=== PATIENT | female | born 1945 | race Hispanic/Latino ===

== ENCOUNTER 2023-08-19 20:55 | Inpatient (IN) | payer OTHER, SELFPAY ==
--- OUTSIDE RECORDS SUMMARY | 2023-08-19 21:07 | XMS REPORT | Continuity of Care Document ---
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 MG 17:13: 3D (three) Medical tablet 05 times Center daily. CALCIUM 2021-0 Yes 2{tbl} QD Take [address] CARBONATE/V 9-30 tablets by [facility] ITAMIN D3 17:13: mouth Medical (CALTRATE 05 daily. Center 600 + D ORAL) multivitami Yes 1{capsu QD Take [address] n capsule 9-30 le} capsule by [facility] 17:13: mouth Medical 05 daily. [facility] carvediloL Yes 12.5mg Take 12.[address] (COREG) 9-30 mg by [facility] 12.5 MG 17:13: mouth 2 Medical tablet 05 (two) Center times daily with breakfast and dinner. atorvastati Yes 20mg QD Take [address] [facility] (LIPITOR) 9-30 by mouth [facility] 20 MG 17:13: daily. Medical tablet 05 [facility] aspirin 81 Yes 81mg QD Take [address] [facility] EC 9-30 [facility] tablet 17:13: daily. Medical 05 [facility] NIFEdipine Yes 60mg QD Take [address] [facility] (PROCARDIA- 9-30 by mouth [facility] XL) 60 MG 17:13: nightly. [facility]i mis[facility] (OSM) 24 hr 05 Center tablet hydrALAZINE Yes 25mg Q.[id number] Take [address] [facility] (APRESOLINE 9-30 [id number] by mouth 3 [facility] ) 25 MG 17:13: 3D (three) Medical tablet 05 times Center daily. CALCIUM Yes 2{tbl} QD Take [address] [facility] CARBONATE/V 9-30 tablets by Rosa magana ITAMIN D3 17:13: mouth Medical (CALTRATE 05 daily. [facility] 600 + D ORAL) multivitami Yes 1{capsu QD Take [address] [facility] capsule 9-30 le} capsule by [facility] 17:13: mouth Medical 05 daily. [facility] carvediloL Yes 12.5mg Take 12.[address] [facility] (COREG) 9-30 mg by [facility] 12.5 MG 17:13: mouth 2 Medical tablet 05 (two) Center times daily with breakfast and dinner. atorvastati Yes 20mg QD Take [address] [facility] (LIPITOR) 9-30 by mouth [facility] 20 MG 17:13: daily. Medical tablet 05 [facility] aspirin 81 Yes 81mg QD Take [address] MG EC 9-30 by mouth [facility] tablet 17:13: daily. Medical 05 [facility] NIFEdipine Yes 60mg QD Take [address] (PROCARDIA- 9-30 by mouth [facility] XL) 60 MG 17:13: nightly. Medi misa (OSM) 24 hr 05 Center tablet hydrALAZINE 0 Yes 25mg Q.[id number] Take [address] [facility] (APRESOLINE 9-30 [id number] by mouth 3 [facility] ) 25 MG 17:13: 3D (three) Medical tablet 05 times Center daily. CALCIUM Yes 2{tbl} QD Take [address] [facility] CARBONATE/V 9-30 tablets by Rosa kes ITAMIN D3 17:13: mouth Medical (CALTRATE 05 daily. Center 600 + D ORAL) multivitami Yes 1{capsu QD Take [address] [facility] capsule 9-30 le} capsule by [facility] 17:13: mouth Medical 05 daily. [facility] carvediloL Yes 12.5mg Take 12.[address] [facility] (COREG) 9-30 mg by [facility] 12.5 MG 17:13: mouth 2 Medical tablet 05 (two) Center times daily with breakfast and dinner. atorvastati Yes 20mg QD Take [address] [facility] (LIPITOR) 9-30 by mouth [facility] 20 MG 17:13: daily. Medical tablet [address] [place] [address] aspirin 81 Yes 81mg QD Take [address] MG EC 9-30 by mouth [facility] tablet 17:13: daily. [address] NIFEdipine Yes 60mg QD Take [address] (PROCARDIA- 9-30 by mouth [facility] XL) 60 MG 17:13: nightly. Medi misa (OSM) 24 hr 05 Center tablet hydrALAZINE Yes 25mg Q.[id number] Take [address] [facility] (APRESOLINE 9-30 [id number] by mouth 3 [facility] ) 25 MG 17:13: 3D (three) Medical tablet 05 times Center daily. CALCIUM Yes 2{tbl} QD Take [address] [facility] CARBONATE/V 9-30 tablets by Rosa kes ITAMIN D3 17:13: mouth Medical (CALTRATE 05 daily. Center 600 + D ORAL) multivitami 0 Yes 1{capsu QD Take [address] [facility] capsule 9-30 le} capsule by [facility] 17:13: mouth Medical 05 daily. [facility] carvediloL Yes 12.5mg Take 12.[address] [facility] (COREG) 9-30 mg by [facility] 12.5 MG 17:13: mouth 2 Medical tablet 05 (two) Center times daily with breakfast and dinner. atorvastati Yes 20mg QD Take [address] [facility] (LIPITOR) 9-30 by mouth [facility] 20 MG 17:13: daily. Medical tablet 05 [facility] aspirin 81 0 Yes 81mg QD Take [address] MG EC 9-30 by mouth [facility] tablet 17:13: daily. Medical [address] [place] [address] NIFEdipine Yes 60mg QD Take [address] (PROCARDIA- 9-30 by mouth [facility] XL) 60 MG 17:13: nightly. Medi misa (OSM) 24 hr 05 [facility] tablet hydrALAZINE Yes 25mg Q.[id number] Take [address] [facility] (APRESOLINE 9-30 [id number] by mouth 3 [facility] ) 25 MG 17:13: 3D (three) Medical tablet 05 times Center daily. CALCIUM Yes 2{tbl} QD Take [address] [facility] CARBONATE/V 9-30 tablets by Rosa magana ITAMIN D3 17:13: mouth Medical (CALTRATE 05 daily. [facility] 600 + D ORAL) multivitami Yes 1{capsu QD Take [address] [facility] capsule 9-30 le} capsule by [facility] 17:13: mouth Medical 05 daily. [facility] carvediloL Yes 12.5mg Take 12.[address] [facility] (COREG) 9-30 mg by [facility] 12.5 MG 17:13: mouth 2 Medical tablet 05 (two) Center times daily with breakfast and dinner. atorvastati Yes 20mg QD Take [address] [facility] (LIPITOR) 9-30 by mouth [facility] 20 MG 17:13: daily. Medical tablet 05 [facility] aspirin 81 0 Yes 81mg QD Take [address] MG EC 9-30 by mouth [facility] tablet 17:13: daily. Medical [address] [place] [address] NIFEdipine 0 Yes 60mg QD Take [address] (PROCARDIA- 9-30 by mouth [facility] XL) 60 MG 17:13: nightly. Medi misa (OSM) 24 hr 05 Center tablet cetirizine 2021-2- No 10mg QD Take [address] [facility] (ZyrTEC) 10 9-18 07-30 by mouth Rayna es MG tablet 09:57: 00:00 daily. Medic al 31 :00 Center cetirizine 2- No 10mg QD Take [address] [facility] (ZyrTEC) 10 9-18 07-30 by mouth Rayna es MG tablet 09:57: 00:00 daily. Medic al 31 :00 Center cetirizine 2021-2021- No 10mg QD Take [address] [facility] (ZyrTEC) 10 -18 07-30 by mouth [facility]na es MG tablet 09:57: 00:00 daily. Medic al 31 :00 [facility] cetirizine 2021- No 10mg QD Take [address] [facility] (ZyrTEC) 10 -18 07-30 by mouth Rayna es MG tablet 09:57: 00:00 daily. Medic al 31 :00 Center cetirizine 2021- No 10mg QD Take [address] [facility] (ZyrTEC) 10 9-18 07-30 by mouth [facility] es MG tablet 09:57: 00:00 daily. Medic al 31 :00 Center cetirizine 2- No 10mg QD Take [address] [facility] (ZyrTEC) 10 9-18 07-30 by mouth [facility] es MG tablet 09:57: 00:00 daily. Medic al 31 :00 Center cetirizine 2021-2021- No 10mg QD Take [address] [facility] (ZyrTEC) 10 9-18 07-30 by mouth [facility] es MG tablet 09:57: 00:00 daily. Medic al 31 :00 Center cetirizine 2021-2- No 10mg QD Take [address] [facility] (ZyrTEC) 10 9-30 -30 by mouth [facility] es MG tablet 09:57: 00:00 daily. Medic al 31 :00 Center cetirizine 2- No 10mg QD Take [address] [facility] (ZyrTEC) 10 9-18 07-30 by mouth [facility] es MG tablet 09:57: 00:00 daily. Medic al 31 :00 [facility] cetirizine 2- No 10mg QD Take [address] [facility] (ZyrTEC) 10 9-18 07-30 by mouth [facility] es MG tablet 09:57: 00:00 daily. Medic al 31 :00 [facility] cetirizine 2- No 10mg QD Take [address] [facility] (ZyrTEC) 10 -18 07-30 by mouth [facility] es MG tablet 09:57: 00:00 daily. Medic al 31 :00 [facility] cetirizine 2021- No 10mg QD Take [address] [facility] (ZyrTEC) 10 9-18 07-30 by mouth [facility] es MG tablet 09:57: 00:00 daily. Medic al 31 :00 [facility] cetirizine 2021- No 10mg QD Take [address] [facility] (ZyrTEC) 10 -18 07-30 by mouth [facility] es MG tablet 09:57: 00:00 daily. Medic al 31 :00 [facility] cetirizine 2021- No 10mg QD Take [address] [facility] (ZyrTEC) 10 9-18 07-30 by mouth [facility] MG tablet 09:57: 00:00 daily. Medic al 31 :00 [facility] cetirizine 2021- No 10mg QD Take [address] [facility] (ZyrTEC) 10 9-18 07-30 by mouth [facility] MG tablet 09:57: 00:00 daily. Medic al 31 :00 [facility] cetirizine 2021-0 2- No 10mg QD Take [address] [facility] (ZyrTEC) 10 9-30 -30 by mouth [facility] es MG tablet 09:57: 00:00 daily. Medic al 31 :00 [facility] cetirizine 2021-0 2- No 10mg QD Take [address] [facility] (ZyrTEC) 10 9-30 -30 by mouth [facility] es MG tablet 09:57: 00:00 daily. Medic al 31 :00 [facility] losartan 2022- No 100mg QD Take [address] [facility] (COZAAR) 9-30 09-30 mg by [facility] 100 MG 09:57: 00:00 mouth Medical tablet 19 :00 daily. [facility] losartan 2021- No 100mg QD Take [address] [facility] (COZAAR) 9-30 09-30 mg by [facility] 100 MG 09:57: 00:00 mouth Medical tablet 19 :00 daily. [facility] losartan 2021-2021- No 100mg QD Take [address] [facility] (COZAAR) 9-30 09-30 mg by [facility] 100 MG 09:57: 00:00 mouth Medical tablet 19 :00 daily. [facility] losartan 2021- No 100mg QD Take [address] [facility] (COZAAR) 9-30 09-30 mg by [facility] 100 MG 09:57: 00:00 mouth Medical tablet 19 :00 daily. [facility] losartan 2021-2021- No 100mg QD Take [address] [facility] (COZAAR) 9-30 09-30 mg by [facility] 100 MG 09:57: 00:00 mouth Medical tablet 19 :00 daily. [facility] losartan 2021- No 100mg QD Take [address] [facility] (COZAAR) 9-30 09-30 mg by [facility] 100 MG 09:57: 00:00 mouth Medical tablet 19 :00 daily. [facility] losartan 2021- No 100mg QD Take [address] [facility] (COZAAR) 9-30 09-30 mg by [facility] 100 MG 09:57: 00:00 mouth Medical tablet 19 :00 daily. [facility] losartan 2021- No 100mg QD Take [address] [facility] (COZAAR) 9-30 09-30 mg by [facility] 100 MG 09:57: 00:00 mouth Medical tablet 19 :00 daily. [facility] losartan 2021- No 100mg QD Take [address] [facility] (COZAAR) 9-30 09-30 mg by [facility] 100 MG 09:57: 00:00 mouth Medical tablet 19 :00 daily. [facility] losartan 2021-2021- No 100mg QD Take [address] [facility] (COZAAR) 9-30 09-30 mg by [facility] 100 MG 09:57: 00:00 mouth Medical tablet 19 :00 daily. [facility] losartan 2021- No 100mg QD Take [address] [facility] (COZAAR) 9-30 09-30 mg by [facility] 100 MG 09:57: 00:00 mouth Medical tablet 19 :00 daily. [facility] losartan 2021- No 100mg QD Take [address] [facility] (COZAAR) 9-30 09-30 mg by [facility] 100 MG 09:57: 00:00 mouth Medical tablet 19 :00 daily. [facility] losartan 2021- No 100mg QD Take [address] [facility] (COZAAR) 9-30 09-30 mg by [facility] 100 MG 09:57: 00:00 mouth Medical tablet 19 :00 daily. [facility] losartan 2021-2021- No 100mg QD Take [address] [facility] (COZAAR) 9-30 09-30 mg by [facility] 100 MG 09:57: 00:00 mouth Medical tablet 19 :00 daily. [facility] losartan 2021- No 100mg QD Take [address] [facility] (COZAAR) 9-30 09-30 mg by [facility] 100 MG 09:57: 00:00 mouth Medical tablet 19 :00 daily. [facility] losartan 2021- No 100mg QD Take [address] [facility] (COZAAR) 9-30 09-30 mg by [facility] 100 MG 09:57: 00:00 mouth Medical tablet 19 :00 daily. [facility] losartan 2021- No 100mg QD Take [address] [facility] (COZAAR) 9-30 09-30 mg by [facility] 100 MG 09:57: 00:00 mouth Medical tablet 19 :00 daily. [facility] losartan 2021- No 50mg QD Take [address] [facility] [address] [facility] (COZAAR) 50 9-30 09-30 by mouth [facility] MG tablet 09:56: 00:00 daily. Medic al 27 :00 [facility] losartan 2021- No 50mg QD Take [address] [facility] [address] [facility] (COZAAR) 50 9-30 09-30 by mouth [facility] MG tablet 09:56: 00:00 daily. Medic al 27 :00 [facility] losartan 2021- No 50mg QD Take [address] [facility] [address] [facility] (COZAAR) 50 9-30 09-30 by mouth [facility] MG tablet 09:56: 00:00 daily. Medic al 27 :00 [facility] losartan 2021- No 50mg QD Take [address] [facility] [address] [facility] (COZAAR) 50 9-30 09-30 by mouth [facility] MG tablet 09:56: 00:00 daily. Medic al 27 :00 [facility] losartan 2022-0 2022- No 50mg QD Take [address] [facility] [address] [facility] (COZAAR) 50 9-30 09-30 by mouth [facility] MG tablet 09:56: 00:00 daily. Medic al 27 :00 [facility] losartan 2021-0 2022- No 50mg QD Take [address] [facility] [address] [facility] (COZAAR) 50 9-30 -30 by mouth [facility] es MG tablet 09:56: 00:00 daily. Medic al 27 :00 [facility] losartan 2021-0 2- No 50mg QD Take [address] [facility] [address] [facility] (COZAAR) 50 9-30 -30 by mouth [facility] MG tablet 09:56: 00:00 daily. Medic al 27 :00 [facility] losartan 2021-0 2021- No 50mg QD Take [address] [facility] [address] [facility] (COZAAR) 50 9-18 07-30 by mouth [facility] MG tablet 09:56: 00:00 daily. Medic al 27 :00 [facility] losartan 2021-0 2- No 50mg QD Take [address] [facility] [address] [facility] (COZAAR) 50 9-18 07-30 by mouth [facility] MG tablet 09:56: 00:00 daily. Medic al 27 :00 [facility] losartan 2021-0 2- No 50mg QD Take [address] [facility] [address] [facility] (COZAAR) 50 9-30 -30 by mouth [facility] MG tablet 09:56: 00:00 daily. Medic al 27 :00 [facility] losartan 2021-0 2- No 50mg QD Take [address] [facility] [address] [facility] (COZAAR) 50 9-30 -30 by mouth [facility] MG tablet 09:56: 00:00 daily. Medic al 27 :00 [facility] losartan 2021-0 2022- No 50mg QD Take [address] [facility] [address] [facility] (COZAAR) 50 9-30 09-30 by mouth [facility] es MG tablet 09:56: 00:00 daily. Medic al 27 :00 [facility] losartan 2021-0 2022- No 50mg QD Take [address] [facility] [address] [facility] (COZAAR) 50 9-30 09-30 by mouth [facility] es MG tablet 09:56: 00:00 daily. Medic al 27 :00 [facility] losartan 2021-0 2022- No 50mg QD Take [address] [facility] [address] [facility] (COZAAR) 50 9-30 -30 by mouth [facility] es MG tablet 09:56: 00:00 daily. Medic al 27 :00 [facility] losartan 2022-0 2022- No 50mg QD Take [address] [facility] (COZAAR) 50 07-18-30 by mouth [facility] es MG tablet 09:56: 00:00 daily. Medic al 27 :00 [facility] losartan 2022-0 2022- No 50mg QD Take [address] [facility] [address] [facility] (COZAAR) 50 07-18-30 by mouth [facility] es MG tablet 09:56: 00:00 daily. Medic al 27 :00 [facility] losartan 2-0 2022- No 50mg QD Take [address] [facility] [address] [facility] (COZAAR) 50 -18 07-30 by mouth [facility] es MG tablet 09:56: 00:00 daily. Medic al 27 :00 [facility] amLODIPine 2022-0 2022- No 10mg QD Take [address] [facility] (NORVASC) 07-18-30 [facility] 10 MG 09:55: 00:00 daily. Medical tablet 43 :00 [facility] amLODIPine 2022-0 2022- No 10mg QD Take [address] [facility] (NORVASC) 07-18-30 by mouth [facility] 10 MG 09:55: 00:00 daily. Medical tablet 43 :00 [facility] amLODIPine 2022-0 2022- No 10mg QD Take [address] [facility] (NORVASC) 07-18-30 by mouth [facility] 10 MG 09:55: 00:00 daily. Medical tablet 43 :00 [facility] amLODIPine 2022-0 2022- No 10mg QD Take [address] [facility] (NORVASC) 07-18- by mouth [facility] 10 MG 09:55: 00:00 daily. Medical tablet 43 :00 [facility] amLODIPine 2022-0 2022- No 10mg QD Take [address] [facility] (NORVASC) 07-18-30 by mouth [facility] 10 MG 09:55: 00:00 daily. Medical tablet 43 :00 [facility] amLODIPine 2022-0 2022- No 10mg QD Take [address] [facility] (NORVASC) 07-18-30 by mouth [facility] 10 MG 09:55: 00:00 daily. Medical tablet 43 :00 [facility] amLODIPine 2022-0 2022- No 10mg QD Take [address] [facility] (NORVASC) 07-18-30 by mouth [facility] 10 MG 09:55: 00:00 daily. Medical tablet 43 :00 [facility] amLODIPine 2022-0 2022- No 10mg QD Take [address] [facility] (NORVASC) 07-18-30 by mouth [facility] 10 MG 09:55: 00:00 daily. Medical tablet 43 :00 [facility] amLODIPine 2022-0 2022- No 10mg QD Take [address] [facility] (NORVASC) 07-18-30 by mouth [facility] 10 MG 09:55: 00:00 daily. Medical tablet 43 :00 [facility] amLODIPine 2022-0 2022- No 10mg QD Take [address] [facility] (NORVASC) 07-18- by mouth [facility] 10 MG 09:55: 00:00 daily. Medical tablet 43 :00 [facility] amLODIPine 2022-0 2022- No 10mg QD Take [address] [facility] (NORVASC) 07-18- by mouth [facility] 10 MG 09:55: 00:00 daily. Medical tablet 43 :00 [facility] amLODIPine 2022-0 2022- No 10mg QD Take [address] [facility] (NORVASC) 07-18- by mouth [facility] 10 MG 09:55: 00:00 daily. Medical tablet 43 :00 [facility] amLODIPine 2022-0 2022- No 10mg QD Take [address] [facility] (NORVASC) 07-18- by mouth [facility] 10 MG 09:55: 00:00 daily. Medical tablet 43 :00 [facility] amLODIPine 2022-0 2022- No 10mg QD Take [address] [facility] (NORVASC) 07-18- by mouth [facility] 10 MG 09:55: 00:00 daily. Medical tablet 43 :00 [facility] amLODIPine 2022-0 2022- No 10mg QD Take [address] [facility] (NORVASC) 07-18-30 by mouth [facility] 10 MG 09:55: 00:00 daily. Medical tablet 43 :00 [facility] amLODIPine 2022-0 2022- No 10mg QD Take [address] [facility] (NORVASC) -18 07-30 by mouth [facility] 10 MG 09:55: 00:00 daily. Medical tablet 43 :00 [facility] amLODIPine 2022-0 2022- No 10mg QD Take [address] [facility] (NORVASC) 9-30 09-30 by mouth [facility] 10 MG 09:55: 00:00 daily. Medical tablet 43 :00 Center lidocaine 2021- No 1{patch Place 1-[address] [facility] (LIDODERM) 9 10-14 } patches [facility] 4 % patch 00:00: 23:59 onto the Med ical 00 :00 skin daily Center as needed (pain) for up to [address] directly over any incisions. lidocaine 2021- No 1{patch Place 1-[address] [facility] (LIDODERM) 07-18 10-14 } patches [facility] 4 % patch 00:00: 23:59 onto the Med ical 00 :00 skin daily Center as needed (pain) for up to [address] directly over any incisions. lidocaine 2021- No 1{patch Place 1-[address] [facility] (LIDODERM) 07-18 10-14 } patches [facility] 4 % patch 00:00: 23:59 onto the Med ical 00 :00 skin daily Center as needed (pain) for up to [address] directly over any incisions. lidocaine 2021- No 1{patch Place 1-[address] [facility] (LIDODERM) 07-18 10-14 } patches [facility] 4 % patch 00:00: 23:59 onto the Med ical 00 :00 skin daily Center as needed (pain) for up to [address] directly over any incisions. lidocaine 2021- No 1{patch Place 1-[address] [facility] (LIDODERM) 07-18 10-14 } patches [facility] 4 % patch 00:00: 23:59 onto the Med ical 00 :00 skin daily Center as needed (pain) for up to [address] directly over any incisions. lidocaine 2021- No 1{patch Place 1-[address] [facility] (LIDODERM) 9- 10-14 } patches [facility] 4 % patch 00:00: 23:59 onto the Med ical 00 :00 skin daily Center as needed (pain) for up to [address] directly over any incisions. lidocaine 2021- No 1{patch Place 1-[address] [facility] (LIDODERM) 07-18 10-14 } patches [facility] 4 % patch 00:00: 23:59 onto the Med ical 00 :00 skin daily Center as needed (pain) for up to [address] directly over any incisions. lidocaine 2021- No 1{patch Place 1-[address] [facility] (LIDODERM) 9-30 10-14 } patches [facility] 4 % patch 00:00: 23:59 onto the Med ical 00 :00 skin daily Center as needed (pain) for up to [address] directly over any incisions. lidocaine 2021- No 1{patch Place 1-[address] [facility] (LIDODERM) 9-30 10-14 } patches [facility] 4 % patch 00:00: 23:59 onto the Med ical 00 :00 skin daily Center as needed (pain) for up to [address] directly over any incisions. lidocaine 2021- No 1{patch Place 1-[address] [facility] (LIDODERM) 9-30 10-14 } patches [facility] 4 % patch 00:00: 23:59 onto the Med ical 00 :00 skin daily Center as needed (pain) for up to [address] directly over any incisions. lidocaine 2021- No 1{patch Place 1-[address] [facility] (LIDODERM) 9-30 10-14 } patches [facility] 4 % patch 00:00: 23:59 onto the Med ical 00 :00 skin daily Center as needed (pain) for up to [address] directly over any incisions. lidocaine 2021- No 1{patch Place 1-[address] [facility] (LIDODERM) 9-30 10-14 } patches [facility] 4 % patch 00:00: 23:59 onto the Med ical 00 :00 skin daily Center as needed (pain) for up to [address] directly over any incisions. lidocaine 2021- No 1{patch Place 1-[address] [facility] (LIDODERM) 9-30 10-14 } patches [facility] 4 % patch 00:00: 23:59 onto the Med ical 00 :00 skin daily Center as needed (pain) for up to [address] directly over any incisions. lidocaine 2021- No 1{patch Place 1-[address] [facility] (LIDODERM) 9-30 10-14 } patches [facility] 4 % patch 00:00: 23:59 onto the Med ical 00 :00 skin daily Center as needed (pain) for up to [address] directly over any incisions. lidocaine 2021- No 1{patch Place 1-[address] [facility] (LIDODERM) 9-30 10-14 } patches [facility] 4 % patch 00:00: 23:59 onto the Med ical 00 :00 skin daily Center as needed (pain) for up to [address] directly over any incisions. lidocaine 2021- No 1{patch Place 1-[address] [facility] (LIDODERM) 9-30 10-14 } patches [facility] 4 % patch 00:00: 23:59 onto the Med ical 00 :00 skin daily Center as needed (pain) for up to [address] directly over any incisions. lidocaine 2021-2021- No 1{patch Place 1-[address] [facility] (LIDODERM) 9-30 10-14 } patches [facility] 4 % patch 00:00: 23:59 onto the Med ical 00 :00 skin daily Center as needed (pain) for up to [address] directly over any incisions. acetaminoph 2021- No 650mg Take [address] [facility] [address] [facility] en 9-30 10-10 tablets [facility] (TYLENOL) 00:00: 23:59 (650 mg Medi misa 325 MG 00 :00 total) by Center tablet mouth every 6 (six) hours as needed for Pain for up to 10 days. acetaminoph 2021- No 650mg Take [address] [facility] [address] [facility] en 9-30 10-10 tablets [facility] (TYLENOL) 00:00: 23:59 (650 mg Medi misa 325 MG 00 :00 total) by Center tablet mouth every 6 (six) hours as needed for Pain for up to 10 days. acetaminoph 2021- No 650mg Take [address] [facility] [address] [facility] en 9-30 10-10 tablets [facility] (TYLENOL) 00:00: 23:59 (650 mg Medi misa 325 MG 00 :00 total) by Center tablet mouth every 6 (six) hours as needed for Pain for up to 10 days. acetaminoph 2021- No 650mg Take [address] [facility] [address] [facility] en 9-30 10-10 tablets [facility] (TYLENOL) 00:00: 23:59 (650 mg Medi misa 325 MG 00 :00 total) by Center tablet mouth every 6 (six) hours as needed for Pain for up to 10 days. acetaminoph 0 2021- No 650mg Take [address] [facility] [address] [facility] en 9-30 10-10 [facility] (TYLENOL) 00:00: 23:59 (650 mg Medi misa 325 MG 00 :00 total) by Center tablet mouth every 6 (six) hours as needed for Pain for up to 10 days. acetaminoph 0 2021- No 650mg Take [address] [facility] [address] [facility] en 9-30 10-10 tablets [facility] (TYLENOL) 00:00: 23:59 (650 mg Medi misa 325 MG 00 :00 total) by Center tablet mouth every 6 (six) hours as needed for Pain for up to 10 days. acetaminoph 2021-0 2021- No 650mg Take [address] [facility] [address] [facility] en 9-30 10-10 tablets [facility] (TYLENOL) 00:00: 23:59 (650 mg Medi misa 325 MG 00 :00 total) by Center tablet mouth every 6 (six) hours as needed for Pain for up to 10 days. acetaminoph 0 2021- No 650mg Take [address] [facility] [address] [facility] en 9-30 10-10 tablets [facility] (TYLENOL) 00:00: 23:59 (650 mg Medi misa 325 MG 00 :00 total) by Center tablet mouth every 6 (six) hours as needed for Pain for up to 10 days. acetaminoph 0 2021- No 650mg Take [address] [facility] [address] [facility] en 9-30 10-10 tablets [facility] (TYLENOL) 00:00: 23:59 (650 mg Medi misa 325 MG 00 :00 total) by Center tablet mouth every 6 (six) hours as needed for Pain for up to 10 days. acetaminoph 0 2021- No 650mg Take [address] [facility] [address] [facility] en 9-30 10-10 tablets [facility] (TYLENOL) 00:00: 23:59 (650 mg Medi misa 325 MG 00 :00 total) by Center tablet mouth every 6 (six) hours as needed for Pain for up to 10 days. acetaminoph 0 2021- No 650mg Take [address] [facility] [address] [facility] en 9-30 10-10 tablets [facility] (TYLENOL) 00:00: 23:59 (650 mg Medi misa 325 MG 00 :00 total) by Center tablet mouth every 6 (six) hours as needed for Pain for up to 10 days. acetaminoph 2021-0 2- No 650mg Take [address] [facility] [address] [facility] en 9-30 10-10 tablets [facility] (TYLENOL) 00:00: 23:59 (650 mg Medi misa 325 MG 00 :00 total) by Center tablet mouth every 6 (six) hours as needed for Pain for up to 10 days. acetaminoph 2021-0 2- No 650mg Take [address] [facility] [address] [facility] en 9-30 10-10 [facility] (TYLENOL) 00:00: 23:59 (650 mg Medi misa 325 MG 00 :00 total) by Center tablet mouth every 6 (six) hours as needed for Pain for up to 10 days. acetaminoph 2021-0 2- No 650mg Take [address] [facility] [address] [facility] en 9-30 10-10 [facility] (TYLENOL) 00:00: 23:59 (650 mg Medi misa 325 MG 00 :00 total) by Center tablet mouth every 6 (six) hours as needed for Pain for up to 10 days. acetaminoph 2021-0 2021- No 650mg Take [address] [facility] [address] [facility] en 9-30 10-10 [facility] (TYLENOL) 00:00: 23:59 (650 mg Medi misa 325 MG 00 :00 total) by Center tablet mouth every 6 (six) hours as needed for Pain for up to 10 days. acetaminoph 2021-0 2021- No 650mg Take [address] [facility] [address] [facility] en 9-30 10-10 tablets [facility] (TYLENOL) 00:00: 23:59 (650 mg Medi misa 325 MG 00 :00 total) by Center tablet mouth every 6 (six) hours as needed for Pain for up to 10 days. acetaminoph 2021-0 2021- No 650mg Take [address] [facility] [address] [facility] en 9-30 10-10 [facility] (TYLENOL) 00:00: 23:59 (650 mg Medi misa 325 MG 00 :00 total) by Center tablet mouth every 6 (six) hours as needed for Pain for up to 10 days. gabapentin 2021-2021- No 100mg Q.[id number] Take [address] [facility] (NEURONTIN) 9-30 10-07 [id number] [facility] 100 MG 00:00: 23:59 3D (100 mg Medical capsule 00 :00 total) by Center mouth 3 (three) times daily for 7 days. polyethylen 2021-0 2021- No 17g Take [address] [facility] e glycol - 10-07 by mouth [facility] (GLYCOLAX) 00:00: 23:59 daily as Me dical 17 gram 00 :00 needed Center packet (constipat ion) for up to 7 days. traMADoL 2021-0 2021- No 50mg Take [address] [facility] (ULTRAM) 50 9-30 10-07 tablet (50 [facility] mg tablet 00:00: 23:59 mg total) Me dical 00 :00 by mouth Center every 6 (six) hours as needed for Pain for up to 7 days. Max Daily Amount: 200 mg gabapentin 2021-2021- No 100mg Q.[id number] Take [address] [facility] (NEURONTIN) -17 08- [id number] [facility] 100 MG 00:00: 23:59 3D (100 mg Medical capsule 00 :00 total) by Center mouth 3 (three) times daily for 7 days. polyethylen 2021-2021- No 17g Take [address] [facility] e glycol - 10- by mouth [facility] (GLYCOLAX) 00:00: 23:59 daily as Me dical 17 gram 00 :00 needed Center packet (constipat ion) for up to 7 days. traMADoL 2021-2021- No 50mg Take [address] [facility] (ULTRAM) 50 9-30 10-07 tablet (50 [facility] mg tablet 00:00: 23:59 mg total) Me dical 00 :00 by mouth Center every 6 (six) hours as needed for Pain for up to 7 days. Max Daily Amount: 200 mg gabapentin 2021-0 2021- No 100mg Q.[id number] Take [address] [facility] (NEURONTIN) - 10- [id number] [facility] 100 MG 00:00: 23:59 3D (100 mg Medical capsule 00 :00 total) by Center mouth 3 (three) times daily for 7 days. polyethylen 2021-0 2021- No 17g Take [address] [facility] e glycol -30 10-07 by mouth [facility] (GLYCOLAX) 00:00: 23:59 daily as Me dical 17 gram 00 :00 needed Center packet (constipat ion) for up to 7 days. traMADoL 2021-2021- No 50mg Take [address] [facility] (ULTRAM) 50 9- 10-07 tablet (50 [facility] mg tablet 00:00: 23:59 mg total) Me dical 00 :00 by mouth Center every 6 (six) hours as needed for Pain for up to 7 days. Max Daily Amount: 200 mg gabapentin 2021-2021- No 100mg [id number] Take [address] [facility] (NEURONTIN) 07-18- [id number] [facility] 100 MG 00:00: 23:59 3D (100 mg Medical capsule 00 :00 total) by Center mouth 3 (three) times daily for 7 days. polyethylen 2021-2021- No 17g Take [address] [facility] glycol -07-25 by [facility] (GLYCOLAX) 00:00: 23:59 daily as Me dical 17 gram 00 :00 needed Center packet (constipat ion) for up to 7 days. traMADoL 2021-2021- No 50mg Take [address] [facility] (ULTRAM) 50 - 10-07 tablet (50 [facility] tablet 00:00: 23:59 mg total) Me dical 00 :00 by mouth Center every 6 (six) hours as needed for Pain for up to 7 days. Max Daily Amount: 200 mg gabapentin 2021-2021- No 100mg [id number] Take [address] [facility] (NEURONTIN) 07-18 [id number] [facility] 100 MG 00:00: 23:59 3D (100 mg Medical capsule 00 :00 total) by Center mouth 3 (three) times daily for 7 days. polyethylen 2021-0 2021- No 17g Take [address] [facility] glycol -07-25 by [facility] (GLYCOLAX) 00:00: 23:59 daily as Me dical 17 gram 00 :00 needed Center packet (constipat ion) for up to 7 days. traMADoL 2021-0 2021- No 50mg Take [address] [facility] (ULTRAM) 50 9-30 10-07 tablet (50 [facility] mg tablet 00:00: 23:59 mg total) Me dical 00 :00 by mouth Center every 6 (six) hours as needed for Pain for up to 7 days. Max Daily Amount: 200 mg gabapentin 2021-0 2021- No 100mg Q.[id number] Take [address] [facility] (NEURONTIN) 07-18 [id number] capsule [facility] 100 MG 00:00: 23:59 3D (100 mg Medical capsule 00 :00 total) by Center mouth 3 (three) times daily for 7 days. polyethylen 2021-0 202- No 17g Take [address] [facility] e glycol 07-18 by mouth [facility] (GLYCOLAX) 00:00: 23:59 daily as Me dical 17 gram 00 :00 needed Center packet (constipat ion) for up to 7 days. traMADoL 2021-0 2021- No 50mg Take [address] [facility] (ULTRAM) 50 07-18- tablet (50 [facility] mg tablet 00:00: 23:59 mg total) Me dical 00 :00 by mouth Center every 6 (six) hours as needed for Pain for up to 7 days. Max Daily Amount: 200 mg gabapentin 2021-0 2021- No 100mg Q.[id number] Take [address] [facility] (NEURONTIN) 07-18 [id number] [facility] 100 MG 00:00: 23:59 3D (100 mg Medical capsule 00 :00 total) by Center mouth 3 (three) times daily for 7 days. polyethylen 2021-0 2021- No 17g Take [address] [facility] e glycol 07-18 by mouth [facility] (GLYCOLAX) 00:00: 23:59 daily as Me dical 17 gram 00 :00 needed Center packet (constipat ion) for up to 7 days. traMADoL 2021-0 2021- No 50mg Take [address] [facility] (ULTRAM) 50 07-18 10- tablet (50 [facility] mg tablet 00:00: 23:59 mg total) Me dical 00 :00 by mouth Center every 6 (six) hours as needed for Pain for up to 7 days. Max Daily Amount: 200 mg gabapentin 2021-0 2021- No 100mg Q.[id number] Take [address] [facility] (NEURONTIN) 07-18 [id number] [facility] 100 MG 00:00: 23:59 3D (100 mg Medical capsule 00 :00 total) by Center mouth 3 (three) times daily for 7 days. polyethylen 2021-2021- No 17g Take [address] [facility] e glycol - 10-07 by mouth [facility] (GLYCOLAX) 00:00: 23:59 daily as Me dical 17 gram 00 :00 needed Center packet (constipat ion) for up to 7 days. traMADoL 2021-2021- No 50mg Take [address] [facility] (ULTRAM) 50 9-30 10-07 tablet (50 [facility] tablet 00:00: 23:59 mg total) Me dical 00 :00 by mouth Center every 6 (six) hours as needed for Pain for up to 7 days. Max Daily Amount: 200 mg gabapentin 2021- No 100mg Q.[id number] Take [address] [facility] (NEURONTIN) -17 08- [id number] [facility] 100 MG 00:00: 23:59 3D (100 mg Medical capsule 00 :00 total) by Center mouth 3 (three) times daily for 7 days. polyethylen 2021-2021- No 17g Take [address] [facility] e glycol - 10- by mouth [facility] (GLYCOLAX) 00:00: 23:59 daily as Me dical 17 gram 00 :00 needed Center packet (constipat ion) for up to 7 days. traMADoL 2021-2021- No 50mg Take [address] [facility] (ULTRAM) 50 9-30 10-07 tablet (50 [facility] tablet 00:00: 23:59 mg total) Me dical 00 :00 by mouth Center every 6 (six) hours as needed for Pain for up to 7 days. Max Daily Amount: 200 mg gabapentin 2021-2021- No 100mg Q.[id number] Take [address] [facility] (NEURONTIN) - 10- [id number] [facility] 100 MG 00:00: 23:59 3D (100 mg Medical capsule 00 :00 total) by Center mouth 3 (three) times daily for 7 days. polyethylen 2021-2021- No 17g Take [address] [facility] e glycol -30 10-07 by mouth [facility] (GLYCOLAX) 00:00: 23:59 daily as Me dical 17 gram 00 :00 needed Center packet (constipat ion) for up to 7 days. traMADoL 2021-2021- No 50mg Take [address] [facility] (ULTRAM) 50 - 10- tablet (50 [facility] mg tablet 00:00: 23:59 mg total) Me dical 00 :00 by mouth Center every 6 (six) hours as needed for Pain for up to 7 days. Max Daily Amount: 200 mg gabapentin 2021-0 2021- No 100mg Q.[id number] Take [address] [facility] (NEURONTIN) 07-18 [id number] [facility] 100 MG 00:00: 23:59 3D (100 mg Medical capsule 00 :00 total) by Center mouth 3 (three) times daily for 7 days. polyethylen 2021-0 2021- No 17g Take [address] [facility] e glycol 07-18 by mouth [facility] (GLYCOLAX) 00:00: 23:59 daily as Me dical 17 gram 00 :00 needed Center packet (constipat ion) for up to 7 days. traMADoL 2021-0 2021- No 50mg Take [address] [facility] (ULTRAM) 50 07-18 tablet (50 [facility] mg tablet 00:00: 23:59 mg total) Me dical 00 :00 by mouth Center every 6 (six) hours as needed for Pain for up to 7 days. Max Daily Amount: 200 mg gabapentin 2021-2021- No 100mg Q.[id number] Take [address] [facility] (NEURONTIN) 07-18 [id number] [facility] 100 MG 00:00: 23:59 3D (100 mg Medical capsule 00 :00 total) by Center mouth 3 (three) times daily for 7 days. polyethylen 2021-0 2021- No 17g Take [address] [facility] e glycol 07-18 by mouth [facility] (GLYCOLAX) 00:00: 23:59 daily as Me dical 17 gram 00 :00 needed Center packet (constipat ion) for up to 7 days. traMADoL 2021-0 2021- No 50mg Take [address] [facility] (ULTRAM) 50 9-30 10-07 tablet (50 [facility] mg tablet 00:00: 23:59 mg total) Me dical 00 :00 by mouth Center every 6 (six) hours as needed for Pain for up to 7 days. Max Daily Amount: 200 mg gabapentin 2021-0 2022- No 100mg Q.[id number] Take [address] [facility] (NEURONTIN) 07-18- [id number] [facility] 100 MG 00:00: 23:59 3D (100 mg Medical capsule 00 :00 total) by Center mouth 3 (three) times daily for 7 days. polyethylen 2021-2021- No 17g Take [address] [facility] e glycol 07-18 by mouth [facility] (GLYCOLAX) 00:00: 23:59 daily as Me dical 17 gram 00 :00 needed Center packet (constipat ion) for up to 7 days. traMADoL 2021-2021- No 50mg Take [address] [facility] (ULTRAM) 50 - 10- tablet (50 [facility] mg tablet 00:00: 23:59 mg total) Me dical 00 :00 by mouth Center every 6 (six) hours as needed for Pain for up to 7 days. Max Daily Amount: 200 mg gabapentin 2021-2021- No 100mg Q.[id number] Take [address] [facility] (NEURONTIN) 07-18 [id number] [facility] 100 MG 00:00: 23:59 3D (100 mg Medical capsule 00 :00 total) by Center mouth 3 (three) times daily for 7 days. polyethylen 2021-2021- No 17g Take [address] [facility] e glycol 07-18 by mouth [facility] (GLYCOLAX) 00:00: 23:59 daily as Me dical 17 gram 00 :00 needed Center packet (constipat ion) for up to 7 days. traMADoL 2021-2021- No 50mg Take [address] [facility] (ULTRAM) 50 - 10- tablet (50 [facility] mg tablet 00:00: 23:59 mg total) Me dical 00 :00 by mouth Center every 6 (six) hours as needed for Pain for up to 7 days. Max Daily Amount: 200 mg gabapentin 2021-2021- No 100mg Q.[id number] Take [address] [facility] (NEURONTIN) -17 08- [id number] [facility] 100 MG 00:00: 23:59 3D (100 mg Medical capsule 00 :00 total) by Center mouth 3 (three) times daily for 7 days. polyethylen 2022021- No 17g Take [address] [facility] e glycol -17 08- by mouth [facility] (GLYCOLAX) 00:00: 23:59 daily as Me dical 17 gram 00 :00 needed Center packet (constipat ion) for up to 7 days. traMADoL 2021- No 50mg Take [address] [facility] (ULTRAM) 50 9-30 10-07 tablet (50 [facility] mg tablet 00:00: 23:59 mg total) Me dical 00 :00 by mouth Center every 6 (six) hours as needed for Pain for up to 7 days. Max Daily Amount: 200 mg gabapentin 2021- No 100mg Q.[id number] Take [address] [facility] (NEURONTIN) 07-18- [id number] [facility] 100 MG 00:00: 23:59 3D (100 mg Medical capsule 00 :00 total) by Center mouth 3 (three) times daily for 7 days. polyethylen 2021- No 17g Take [address] [facility] e glycol 07-18 by mouth [facility] (GLYCOLAX) 00:00: 23:59 daily as Me dical 17 gram 00 :00 needed Center packet (constipat ion) for up to 7 days. traMADoL 2021- No 50mg Take [address] [facility] (ULTRAM) 50 9- 10-07 tablet (50 [facility] mg tablet 00:00: 23:59 mg total) Me dical 00 :00 by mouth Center every 6 (six) hours as needed for Pain for up to 7 days. Max Daily Amount: 200 mg gabapentin 2021- No 100mg Q.[id number] Take [address] [facility] (NEURONTIN) 07-18- [id number] [facility] 100 MG 00:00: 23:59 3D (100 mg Medical capsule 00 :00 total) by Center mouth 3 (three) times daily for 7 days. polyethylen 2021- No 17g Take [address] [facility] e glycol - 10-07 by mouth [facility] (GLYCOLAX) 00:00: 23:59 daily as Me dical 17 gram 00 :00 needed Center packet (constipat ion) for up to 7 days. traMADoL 2021-2021- No 50mg Take [address] [facility] (ULTRAM) 50 9-30 10-07 tablet (50 [facility] mg tablet 00:00: 23:59 mg total) Me dical 00 :00 by mouth Center every 6 (six) hours as needed for Pain for up to 7 days. Max Daily Amount: 200 mg hydrALAZINE 2020- No 20mg 20 mg, Uni vers (APRESOLINE 18 -18 Oral, ONCE i ty of ) tablet 20 01:30: 00:28 NOW, 1 [place] as mg 00 :00 dose, Mon Medical 03/04/21 at Branch 2030, Routine acetaminoph 2019-10- No 650mg 650 mg, U nivers en 11-15 Oral, ity of (TYLENOL) 22:00: 20:56 ONCE, 1 [place] 650 00 :00 dose, Sat Medi misa mg 09/15/20 Branch at 1600, J CARLOS carvediloL 2019-10 Yes 12.5mg Take 12.5 Univers 12.5 mg 1-25 mg by ity of tablet 03:53: mouth [address] [place] [address] (two) Medical times [place] daily with meals. losartan 50 2019-10 Yes 50mg Take 50 mg Univers mg tablet 1-25 by mouth ity of 03:53: daily. [address] atorvastati 2019-10 Yes 10mg Take 10 mg Univers n (LIPITOR) 1-25 by mouth ity of 10 mg 03:53: at [place] tablet 25 bedtime. [facility] Branch raloxifene 2019-10 Yes 60mg Take 60 mg U nivers 60 mg 1-25 by mouth ity of tablet 03:53: daily. [address] calcium 2019-10 Yes Take by Univers carbonate/v 1-25 mouth. ity of itamin D3 03:53: [place] (CALTRATE-6 Medical PLUS Branch VITAMIN D3 ORAL) amLODIPine 2019-10 Yes 10mg Take 10 mg U nivers (NORVASC) 1-25 by mouth ity of 10 mg 03:53: daily. [address] carvediloL 2019-10 Yes 12.5mg Take 12.5 Univers 12.5 mg 1-25 mg by ity of tablet 03:53: mouth 2 [place] [address] (two) Medical times [place] daily with meals. losartan 50 2019-10 Yes 50mg Take 50 mg Univers mg tablet 1-25 by mouth ity of 03:53: daily. [place] [address] Medical Branch atorvastati 2019-10 Yes 10mg Take 10 mg Univers n (LIPITOR) 1-25 by mouth ity of 10 mg 03:53: at [place] tablet 25 bedtime. Medical Branch raloxifene 2019-10 Yes 60mg Take 60 mg U nivers 60 mg 1-25 by mouth ity of tablet 03:53: daily. [address] calcium 2019-10 Yes Take by Univers carbonate/v 1-25 mouth. ity of itamin D3 03:53: [place] (CALTRATE-6 25 Medical 00 PLUS Branch VITAMIN D3 ORAL) amLODIPine 2019-10 Yes 10mg Take 10 mg U nivers (NORVASC) 1-25 by mouth ity of 10 mg 03:53: daily. [place] tablet [facility] Branch carvediloL 2019-10 Yes 12.5mg Take 12.5 Univers 12.5 mg 1-25 mg by ity of tablet 03:53: mouth [address] [place] [address] (two) Medical times [place] daily with meals. losartan 50 2019-10 Yes 50mg Take 50 mg Univers mg tablet 1-25 by mouth ity of 03:53: daily. [address] atorvastati 2019-10 Yes 10mg Take 10 mg Univers n (LIPITOR) 1-25 by mouth ity of 10 mg 03:53: at [place] tablet 25 bedtime. Medical Branch raloxifene 2019-10 Yes 60mg Take 60 mg U nivers 60 mg 1-25 by mouth ity of tablet 03:53: daily. [address] calcium 2019-10 Yes Take by Univers carbonate/v 1-25 mouth. ity of itamin D3 03:53: [place] (CALTRATE-6 25 Medical 00 PLUS Branch VITAMIN D3 ORAL) amLODIPine 2019-10 Yes 10mg Take 10 mg U nivers (NORVASC) 1-25 by mouth ity of 10 mg 03:53: daily. [place] tablet 25 [facility] Branch carvediloL 2019-10 Yes 12.5mg Take 12.5 Univers 12.5 mg 1-25 mg by ity of tablet 03:53: mouth 2 [place] 25 (two) Medical times [place] daily with meals. losartan 50 2019-10 Yes 50mg Take 50 mg Univers mg tablet 1-25 by mouth ity of 03:53: daily. [address] atorvastati 2019-10 Yes 10mg Take 10 mg Univers n (LIPITOR) -25 by mouth ity of 10 mg 03:53: at [place] tablet 25 bedtime. Medical Branch raloxifene 2019-10 Yes 60mg Take 60 mg U nivers 60 mg 1-25 by mouth ity of tablet 03:53: daily. [place] 25 Medical Branch calcium 2019-10 Yes Take by Univers carbonate/v 25 mouth. ity of itamin D3 03:53: [place] (CALTRATE-04 12 Medical 00 PLUS Branch VITAMIN D3 ORAL) amLODIPine 2019-10 Yes 10mg Take 10 mg U nivers (NORVASC) 25 by mouth ity of 10 mg 03:53: daily. [place] tablet 25 Medical Branch aspirin 2019-10- No 325mg 325 mg, Unive rs E.C. 11-12 Oral, ity of (ECOTRIN) 01:00: 01:00 ONCE, 1 [place] tablet 325 00 :00 dose, Tue Medi misa mg 09/11/20 Branch at 1900, STAT iohexol 2019-10- No 100mL 100 mL, Unive rs (OMNIPAQUE 11-11 Intravenou it y of 350 22:45: 22:35 s, ONCE, 1 [place] BULK-100 00 :00 dose, Tue Medica l mL) 09/11/20 Branch injection at 1645, 100 mL Routine raloxifene 2021- No 60mg QD Take [address] [facility] (EVISTA) 60 6-25 09-30 by mouth [place] mg tablet 00:00: 00:00 daily. Medic al 00 :00 Center raloxifene 2021- No 60mg QD Take [address] [facility] (EVISTA) 60 6-25 09-30 by mouth [place] mg tablet 00:00: 00:00 daily. Medic al 00 :00 Center raloxifene 2021- No 60mg QD Take [address] [facility] (EVISTA) 60 6-25 09-30 by mouth [place] mg tablet 00:00: 00:00 daily. Medic al 00 :00 [place] raloxifene 2021- No 60mg QD Take [address] [facility] (EVISTA) 60 6-25 09-30 by mouth [place] mg tablet 00:00: 00:00 daily. Medic al 00 :00 Center raloxifene 2022- No 60mg QD Take [address] [facility] (EVISTA) 60 6-25 09-30 by mouth [place] mg tablet 00:00: 00:00 daily. Medic al 00 :00 Center raloxifene 0 2022- No 60mg QD Take [address] [facility] (EVISTA) 60 6-25 09-30 by mouth [place] mg tablet 00:00: 00:00 daily. Medic al 00 :00 Center raloxifene 0 2022- No 60mg QD Take [address] [facility] (EVISTA) 60 6-25 09-30 by mouth [place] mg tablet 00:00: 00:00 daily. Medic al 00 :00 [place] raloxifene 2018-0 2022- No 60mg QD Take [address] [facility] (EVISTA) 60 6-25 09-30 by mouth [place] mg tablet 00:00: 00:00 daily. Medic al 00 :00 [place] raloxifene 2022- No 60mg QD Take [address] [facility] (EVISTA) 60 6-25 09-30 by mouth [place] mg tablet 00:00: 00:00 daily. Medic al 00 :00 [place] raloxifene 0 2022- No 60mg QD Take [address] [facility] (EVISTA) 60 6-25 09-30 by mouth [place] mg tablet 00:00: 00:00 daily. Medic al 00 :00 [place] raloxifene 0 2- No 60mg QD Take [address] [facility] (EVISTA) 60 6-25 09-30 by mouth [place] mg tablet 00:00: 00:00 daily. Medic al 00 :00 [place] raloxifene 2018-0 2022- No 60mg QD Take [address] [facility] (EVISTA) 60 6-25 09-30 by mouth [place] mg tablet 00:00: 00:00 daily. Medic al 00 :00 Center raloxifene 2018-0 2022- No 60mg QD Take [address] [facility] (EVISTA) 60 6-25 09-30 by mouth [place] mg tablet 00:00: 00:00 daily. Medic al 00 :00 [place] raloxifene 2018-0 2022- No 60mg QD Take [address] [facility] (EVISTA) 60 6-25 09-30 by mouth [place] mg tablet 00:00: 00:00 daily. Medic al 00 :00 [place] raloxifene 2021- No 60mg QD Take [address] [facility] (EVISTA) 60 6 09-30 by mouth [place] mg tablet 00:00: 00:00 daily. Medic al 00 :00 [place] raloxifene 2021- No 60mg QD Take [address] [facility] (EVISTA) 60 6- 09-30 by mouth [place] mg tablet 00:00: 00:00 daily. Medic al 00 :00 [place] raloxifene 2021- No 60mg QD Take [address] [facility] (EVISTA) 60 6 09-30 by mouth [place] mg tablet 00:00: 00:00 daily. Medic al 00 :00 [place] Vital Signs Vital Name Observation Time Observation Value Comments Source HEIGHT 2020-07-27 05:42:00 154.9 cm WEIGHT 2020-07-27 05:42:00 67.405 kg HEIGHT 2020-07-05 00:00:00 154.9 cm WEIGHT 2020-07-05 00:00:00 67.405 kg HEIGHT 2020-06-08 00:00:00 152.4 cm WEIGHT 2020-06-08 00:00:00 68.096 kg WEIGHT 2020-09-12 06:00:00 64.728 kg HEIGHT 2020-09-11 23:05:00 154.9 cm HEIGHT 2022-07-15 05:49:00 154.9 cm WEIGHT 2022-07-15 05:49:00 59 kg HEIGHT 2022-07-15 05:49:00 154.9 cm WEIGHT 2022-07-15 05:49:00 59 kg HEIGHT 2021-08-15 12:32:00 154.9 cm WEIGHT 2021-08-15 12:32:00 61.145 kg HEIGHT 2021-08-14 12:46:00 154.9 cm WEIGHT 2021-08-14 12:46:00 63.504 kg HEIGHT 2021-08-15 12:32:00 154.9 cm WEIGHT 2021-08-15 12:32:00 61.145 kg HEIGHT 2021-08-14 12:46:00 154.9 cm WEIGHT 2021-08-14 12:46:00 63.504 kg WEIGHT 2021-06-04 10:18:00 63.504 kg WEIGHT 2021-06-04 10:18:00 63.504 kg Systolic blood 2021-03-05 01:30:00 137 mm[Hg] Univer sity of pressure [place] [facility] Diastolic blood 2021-03-05 01:30:00 58 mm[Hg] Unive rsity of pressure [place] [facility] Heart rate 2021-03-05 01:30:00 51 /min [facility] [place] [facility] Respiratory rate 2021-03-05 01:30:00 16 /min Univ ersity of [place] [facility] Oxygen saturation in 2021-03-05 01:30:00 96 /min University of Arterial blood by [place] [employer] misa Pulse oximetry Branch Body temperature 2021-03-04 23:16:00 37.28 Maeve Univ [facility]ity [facility] [place] [facility] Body height 2021-03-04 23:16:00 154.9 cm [facility] [place] [facility] Body weight 2021-03-04 23:16:00 63.504 kg [facility] [place] [facility] BMI 2021-03-04 23:16:00 26.45 kg/m2 [facility] [place] [facility] Systolic blood 2021-03-05 01:30:00 137 mm[Hg] Univer sity of pressure [place] [facility] Diastolic blood 2021-03-05 01:30:00 58 mm[Hg] Unive rsity of pressure [place] [facility] Heart rate 2021-03-05 01:30:00 51 /min [facility] [place] [facility] Respiratory rate 2021-03-05 01:30:00 16 /min Univ ers[facility] [place] [facility] Oxygen saturation in 2021-03-05 01:30:00 96 /min University of Arterial blood by [place] [employer] misa Pulse oximetry Branch Body temperature 2021-03-04 23:16:00 37.28 Maeve [facility] [place] [facility] Body height 2021-03-04 23:16:00 154.9 cm [facility] [place] [facility] Body weight 2021-03-04 23:16:00 63.504 kg [facility] [place] [facility] BMI 2021-03-04 23:16:00 26.45 kg/m2 [facility] [place] [facility] Systolic blood 2020-09-15 22:00:00 161 mm[Hg] Univer sity of pressure [place] [facility] Diastolic blood 2020-09-15 22:00:00 91 mm[Hg] Unive rsity of pressure [place] [facility] Heart rate 2020-09-15 22:00:00 66 /min [facility] [place] [facility] Respiratory rate 2020-09-15 22:00:00 18 /min Univ [facility] [place] [facility] Oxygen saturation in 2020-09-15 22:00:00 97 /min University of Arterial blood by [facility] Pulse oximetry Branch Body temperature 2020-09-15 20:16:00 36.5 Maeve Univ [facility] [place] [facility] Body height 2020-09-15 20:16:00 154.9 cm [facility] [place] [facility] Body weight 2020-09-15 20:16:00 65.772 kg [facility] [place] [facility] BMI 2020-09-15 20:16:00 27.40 kg/m2 [facility] [place] [facility] Systolic blood 2020-09-15 22:00:00 161 mm[Hg] Univer sity of pressure [place] [facility] Diastolic blood 2020-09-15 22:00:00 91 mm[Hg] Unive rsity of pressure [place] [facility] Heart rate 2020-09-15 22:00:00 66 /min [facility] [place] [facility] Respiratory rate 2020-09-15 22:00:00 18 /min Univ [facility] [place] [facility] Oxygen saturation in 2020-09-15 22:00:00 97 /min University of Arterial blood by [facility] Pulse oximetry Branch Body temperature 2020-09-15 20:16:00 36.5 Maeve [facility] [place] [facility] Body height 2020-09-15 20:16:00 154.9 cm [facility] [place] [facility] Body weight 2020-09-15 20:16:00 65.772 kg [facility] [place] [facility] BMI 2020-09-15 20:16:00 27.40 kg/m2 [facility] [place] [facility] WEIGHT 2020-09-12 06:00:00 64.728 kg HEIGHT 2020-09-11 23:05:00 154.9 cm Systolic blood 2020-09-12 03:02:00 115 mm[Hg] Univer sity of pressure [place] [facility] Diastolic blood 2020-09-12 03:02:00 60 mm[Hg] Unive rsity of pressure [place] [facility] Heart rate 2020-09-12 03:02:00 55 /min [facility] [place] [facility] Respiratory rate 2020-09-12 03:02:00 14 /min Univ ersity of [facility] Oxygen saturation in 2020-09-12 03:02:00 96 /min University of Arterial blood by [facility] Pulse oximetry Branch Body temperature 2020-09-11 21:48:00 36.61 Maeve Univ ersity of [facility] Body weight 2020-09-11 21:48:00 65.772 kg [facility] [place] [facility] BMI 2020-09-11 21:48:00 27.40 kg/m2 [facility] [place] [facility] Body height 2020-09-11 21:00:00 154.9 cm Universi ty of [facility] Systolic blood 2020-09-12 03:02:00 115 mm[Hg] Univer sity of pressure [facility] Diastolic blood 2020-09-12 03:02:00 60 mm[Hg] Unive rsity of pressure [facility] Heart rate 2020-09-12 03:02:00 55 /min Universi ty of [facility] Respiratory rate 2020-09-12 03:02:00 14 /min [facility] ersity of [facility] Oxygen saturation in 2020-09-12 03:02:00 96 /min University of Arterial blood by [facility] Pulse oximetry Branch Body temperature 2020-09-11 21:48:00 36.61 Maeve [facility] ersity of [facility] Body weight 2020-09-11 21:48:00 65.772 kg [facility] [place] [facility] BMI 2020-09-11 21:48:00 27.40 kg/m2 [facility] [place] [facility] Body height 2020-09-11 21:00:00 154.9 cm [facility] [place] [facility] HEIGHT 2020-07-27 05:42:00 154.9 cm WEIGHT 2020-07-27 05:42:00 67.405 kg HEIGHT 2020-07-05 00:00:00 154.9 cm WEIGHT 2020-07-05 00:00:00 67.405 kg HEIGHT 2020-06-08 00:00:00 152.4 cm WEIGHT 2020-06-08 00:00:00 68.096 kg Oxygen saturation in 2022-07-18 11:34:00 95 /min [facility] Arterial blood by Medical Ce nter Pulse oximetry Systolic blood 2022-07-18 11:00:00 146 mm[Hg] [facility] Diastolic blood 2022-07-18 11:00:00 80 mm[Hg] [facility] Heart rate 2022-07-18 11:00:00 71 /min [facility] Body temperature 2022-07-18 11:00:00 36.61 Maeve [facility] Respiratory rate 2022-07-18 11:00:00 16 /min [facility] Body height 2022-07-15 05:49:00 154.9 cm [facility] Body weight 2022-07-15 05:49:00 59 kg [facility] BMI 2022-07-15 05:49:00 24.59 kg/m2 [facility] Procedures Procedure Date / Time Performing Clinician Source Performed [place] ESOPHAGUS 2023-06-29 11:21:02 Marcela Powell [facility] XR SHOULDER COMPLETE 2 2023-06-29 10:44:49 Marcela Powell [facility] VIEWS MIN RIGHT Center XR SPINE CERVICAL 2023-06-29 10:44:21 Marcela Powell [facility] [address] CHEST WITHOUT IV 2023-01-26 09:19:00 Marlon Norwood [facility] CT CHEST WITH IV 2022-11-10 11:00:00 Erazo Ondina [facility] POCT-CREATININE 2022-11-10 10:59:00 ErazoOndina dawkins [facility] XR CHEST 1 VIEW PORTABLE 2022-07-18 06:50:00 Manolo [facility] / BEDSIDE Center BASIC METABOLIC PANEL 2022-07-18 05:28:00 Manolo [facility] MAGNESIUM 2022-07-18 05:28[facility] AUTO 2022-07-18 05:28:00 Ozzie French [facility] CBC W/PLT COUNT & AUTO 2022-07-18 05:28:00 Ozzie French [facility] XR CHEST 1 VIEW PORTABLE 2022-07-17 06:43:00 Ozzie French [facility] BASIC METABOLIC PANEL 2022-07-17 05:31:00 Ozzie French [facility] MAGNESIUM 2022-07-17 05:31:00 Ozzie French [facility] CBC W/PLT COUNT & AUTO 2022-07-17 05:31:00 Ozzie French [facility] CBC W/PLT COUNT & AUTO 2022-07-17 05:31:00 Ozzie French [facility] XR CHEST 1 VIEW PORTABLE 2022-07-16 14:30:00 Tatyana Murdock [facility] XR CHEST 1 VIEW PORTABLE 2022-07-16 06:47:00 Ozzie French [facility] BASIC METABOLIC PANEL 2022-07-16 04:56:00 Nora Frenchalexandriajazmine [facility] MAGNESIUM 2022-07-16 04:56:00 Nora Frenchalexandriajazmine [facility] CBC W/PLT COUNT & AUTO 2022-07-16 04:56:00 Ozzie French [facility] CBC W/PLT COUNT & AUTO 2022-07-16 04:56:00 Ozzie French [facility] XR CHEST 1 VIEW PORTABLE 2022-07-15 12:46:00 Ozzie French [facility] BEDSIDE [facility] PREPARE RBC 2022-07-15 12:42:00 Ernie Washington [facility] CBC (HEMOGRAM ONLY) 2022-07-15 12:31:00 Ozzie French [facility] BASIC METABOLIC PANEL 2022-07-15 12:31:00 Nora Frenchalexandriajazmine [facility] PHOSPHORUS 2022-07-15 12:31:00 Ozzie French [facility] MAGNESIUM 2022-07-15 12:31:00 Castro [facility] PT/APTT 2022-07-15 12:31:00 Manolo [facility] CALCIUM, IONIZED 2022-07-15 12:31:00 Castro [facility] ECG 12-LEAD 2022-07-15 11:49:37 Ramonduane [facility] ECG 12-LEAD 2022-07-15 11:49:37 Unknown, Hl7 Doctor [facility] RRL CRITICAL LABS 2022-07-15 09:44:36 Jean Julian [facility] (ABG,NA,K,H&H,GLUCOSE) Marcy BLOOD GAS, ARTERIAL 2022-07-15 09:44:36 Jean [facility] SODIUM NA-STAT LAB 2022-07-15 09:44:36 Jean [facility] POTASSIUM-STAT LAB 2022-07-15 09:44:36 [place] [facility] GLUCOSE-STAT LAB 2022-07-15 09:44:36 [place] [facility] HGB/HCT (H&H) - STAT LAB 2022-07-15 09:44:36 Julian Pena [facility] TISSUE EXAM 2022-07-15 09:20:00 Ernie Washington [facility] RRL CRITICAL LABS 2022-07-15 08:44:50 Jean [facility] (ABG,NA,K,H&H,GLUCOSE) Marcy CALCIUM, IONIZED 2022-07-15 08:44:50 Jean [facility] BLOOD GAS, ARTERIAL 2022-07-15 08:44:50 [place] [facility] SODIUM NA-STAT LAB 2022-07-15 08:44:50 [place] [facility] POTASSIUM-STAT LAB 2022-07-15 08:44:50 Julian Pena [facility] GLUCOSE-STAT LAB 2022-07-15 08:44:50 Julian Pena [facility] HGB/HCT (H&H) - STAT LAB 2022-07-15 08:44:50 Julian Pena [facility] ROBOTIC THORACOSCOPY 2022-07-15 07:33:00 Padmini Ernie [facility] (VATS),SEGMENTECTOMY Center PROCEDURE W/ DAVINCI XI 2022-07-15 07:33:00 Padmini Ernie [facility] ROBOTIC THORACOSCOPY 2022-07-15 07:33:00 Padmini [facility] (VATS),LOBECTOMY W/ Center LYMPH NODE RESECTION ECG 12-LEAD 2022-07-11 10:25:25 Cathy [facility] ECG 12-LEAD 2022-07-11 10:25:25 Unknown, Hl7 [facility] COVID ANTIGEN 2022-07-11 10:24:00 Cathy [facility] CBC W/PLT COUNT & AUTO 2022-07-11 10:24:00 Cathy [facility] COMPREHENSIVE METABOLIC 2022-07-11 10:24:00 Cathy [facility] PANEL Center PT/APTT 2022-07-11 10:24:00 Cathy [facility] ABORH, MANUAL 2022-07-11 10:24:00 Cathy [facility] CBC W/PLT COUNT & AUTO 2022-07-11 10:24:00 Cathy [facility] XR CHEST 2 VIEWS 2022-07-11 10:14:00 Cathy [facility] SPIROMETRY 2022-07-11 08:13:00 Paul Marlon [facility] DLCO (SINGLE BREATH 2022-07-11 08:13:00 Valjazmynil Marlon [facility]) Center XR CHEST 1 VIEW PORTABLE 2022-06-06 15:51:00 Ann, [place] Pranay [facility] / BEDSIDE Center XR CHEST 1 VIEW PORTABLE 2022-06-06 13:06:00 Anil Ann Pranay [facility] BEDSIDE Center CT BIOPSY LUNG 2022-06-06 12:54:00 Светлана Garza [facility] TISSUE EXAM 2022-06-06 12:42:00 Светлана Garza Carmen [facility] APTT 2022-06-06 09:27:00 Meena Michele [facility] BASIC METABOLIC PANEL 2022-06-06 09:27:00 Meena Michele [facility] CBC W/PLT COUNT & AUTO 2022-06-06 09:27:00 Meena Michele [facility] DIFFERENTIAL Center PROTHROMBIN TIME/INR 2022-06-06 09:27:00 Meena Michele [facility] CBC W/PLT COUNT & AUTO 2022-06-06 09:27:00 Meena Michele [facility] DIFFERENTIAL Center COVID ANTIGEN 2022-06-02 11:17:00 Heather Whiting [facility] CT CHEST WITHOUT IV 2022-05-26 08:53:00 Ondina Erazo [facility] CONTRAST Center CT CHEST WITHOUT IV 2022-04-03 14:56:00 Jocelynn Corley [facility] CONTRAST Center MR BREAST BILATERAL WITH 2022-01-29 09:33:00 Guerita Lord [facility] & WITHOUT IV CONTRAST Center CTA BRAIN 2021-12-30 11:36:00 Chet Ocampo [facility] CTA CAROTID 2021-12-30 11:36[facility]00 [facility] 2021-12-30 11:14:00 [facility] REPORT OF PROCEDURE - 2021-08-15 14:16:37 Lee Cruz [facility] ENDOSCOPY URL [facility] TISSUE EXAM 2021-08-15 13:40:00 Lee Cruz [facility] COLONOSCOPY, WITH 2021-08-15 13:21:00 [facility] HEPATIC FUNCTION PANEL 2021-03-04 23:32:00 Sabrina Mitchell [facility] [place] [id number] (ALB,T.PRO,BILI Medical Branch T,BU/BC,ALT,AST,ALK PHOS) BASIC METABOLIC PANEL 2021-03-04 23:32:00 [facility] (NA, K, CL, CO2, Medical Branch GLUCOSE, BUN, CREATININE, CA) CBC WITH DIFF 2021-03-04 23:31:00 Sabrina Mitchell [facility] NOTICE OF PRIVACY 2021-03-04 23:08:46 Doctor Unassigned, No [facility] Name [facility] CONSENT/REFUSAL FOR 2021-03-04 23:08:31 Doctor Unassigned, No [facility] [place] DI[facility]NOS[facility] AND TREAT[facility] Name [facility] CT HEAD WO CONTRAST 2020-09-15 21:20:35 Brooke Reina [facility] XR CHEST 1 VW 2020-09-15 21:07:07 Brooke Reina [facility] MAGNESIUM 2020-09-15 20:57:00 Brooke Reina [facility] TROPONIN I 2020-09-15 20:57:00 Brooke Reina [facility] HEPATIC FUNCTION PANEL 2020-09-15 20:57:00 [facility] ([id number] (ALB,T.PRO,BILI Medical Branch T,BU/BC,ALT,AST,ALK PHOS) BASIC METABOLIC PANEL 2020-09-15 20:57:00 [facility] [place] (NA, K, CL, CO2, Medical Branch GLUCOSE, BUN, CREATININE, CA) CBC WITH DIFF 2020-09-15 20:57:00 Brooke Reina [facility] CONSENT/REFUSAL FOR 2020-09-15 20:03:16 Doctor Unassigned, No [facility] [place] DIAGNOS[facility] AND TREATMENT Name [facility] URINALYSIS 2020-09-11 23:08:00 Gretta East [facility] COVID-19 (ID NOW RAPID 2020-09-11 22:41:00 [facility] TESTING) Medical Branch CT ANGIOGRAM HEAD 2020-09-11 22:40:04 Gretta East [facility] CT ANGIOGRAM NECK 2020-09-11 22:40:04 Gretta East [facility] CT HEAD WO CONTRAST 2020-09-11 22:26:[address] [facility] TROPONIN I 2020-09-11 22:10:00 Gretta East [facility] COMP. METABOLIC PANEL 2020-09-11 22:10:00 Gretta East [facility] ([id number]) [facility] CBC WITH DIFF 2020-09-11 22:10:00 Gretta East [facility] PROTHROMBIN TIME / INR 2020-09-11 22:10:00 Gretta East [facility] ACTIVATED PARTIAL 2020-09-11 22:10:00 Gretta East [facility] THRMPLAS GALO [facility] HB ECG ROUTINE & RHYTHM 2020-09-11 21:55:00 Henry Ceja [facility] CONSENT/REFUSAL FOR 2020-09-11 21:47:37 Doctor Unassigned, No [facility] DIAGNOSIS AND TREATMENT Name [facility] NOTICE OF PRIVACY 2020-09-11 21:43:31 Doctor Unassigned, No [facility] PRACTICES Name [facility] Plan of Care Planned Activity Planned Date Details Comments Source Future Scheduled 2025-04-02 DTAP/TDAP/TD [facility] 00:00:00 VACCINES (2 - Td or Medical Center Tdap) [code = DTAP/TDAP/TD VACCINES (2 - Td or Tdap)] Future Scheduled 2025-04-02 DTAP/TDAP/TD [facility] 00:00:00 VACCINES (2 - Td or Medical Center Tdap) [code = DTAP/TDAP/TD VACCINES (2 - Td or Tdap)] Future Scheduled 2025-04-02 DTAP/TDAP/TD [facility] Test 00:00:00 VACCINES (2 - Td or Medical Center Tdap) [code = DTAP/TDAP/TD VACCINES (2 - Td or Tdap)] Future Scheduled 2025-04-02 DTAP/TDAP/TD [facility] 00:00:00 VACCINES (2 - Td or Medical Center Tdap) [code = DTAP/TDAP/TD VACCINES (2 - Td or Tdap)] Future Scheduled 2025-04-02 DTAP/TDAP/TD [facility] 00:00:00 VACCINES (2 - Td or Medical Center Tdap) [code = DTAP/TDAP/TD VACCINES (2 - Td or Tdap)] Future Scheduled 2025-04-02 DTAP/TDAP/TD [facility] 00:00:00 VACCINES (2 - Td or Medical Center Tdap) [code = DTAP/TDAP/TD VACCINES (2 - Td or Tdap)] Future Scheduled 2025-04-02 DTAP/TDAP/TD [facility] 00:00:00 VACCINES (2 - Td or Medical Center Tdap) [code = DTAP/TDAP/TD VACCINES (2 - Td or Tdap)] Future Scheduled 2025-04-02 DTAP/TDAP/TD [facility] 00:00:00 VACCINES (2 - Td or Medical Center Tdap) [code = DTAP/TDAP/TD VACCINES (2 - Td or Tdap)] Future Scheduled 2025-04-02 DTAP/TDAP/TD [facility] 00:00:00 VACCINES (2 - Td or Medical Center Tdap) [code = DTAP/TDAP/TD VACCINES (2 - Td or Tdap)] Future Scheduled 2025-04-02 DTAP/TDAP/TD [facility] 00:00:00 VACCINES (2 - Td or Medical Center Tdap) [code = DTAP/TDAP/TD VACCINES (2 - Td or Tdap)] Future Scheduled 2025-04-02 DTAP/TDAP/TD [facility] 00:00:00 VACCINES (2 - Td or Medical Center Tdap) [code = DTAP/TDAP/TD VACCINES (2 - Td or Tdap)] Future Scheduled 2025-04-02 DTAP/TDAP/TD [facility] 00:00:00 VACCINES (2 - Td or Medical Center Tdap) [code = DTAP/TDAP/TD VACCINES (2 - Td or Tdap)] Future Scheduled 2025-04-02 DTAP/TDAP/TD [facility] 00:00:00 VACCINES (2 - Td or Medical Center Tdap) [code = DTAP/TDAP/TD VACCINES (2 - Td or Tdap)] Future Scheduled 2025-04-02 DTAP/TDAP/TD [facility] 00:00:00 VACCINES (2 - Td or Medical Center Tdap) [code = DTAP/TDAP/TD VACCINES (2 - Td or Tdap)] Future Scheduled 2025-04-02 DTAP/TDAP/TD [facility] 00:00:00 VACCINES (2 - Td or Medical Center Tdap) [code = DTAP/TDAP/TD VACCINES (2 - Td or Tdap)] Future Scheduled 2025-04-02 DTAP/TDAP/TD [facility] 00:00:00 VACCINES (2 - Td or Medical Center Tdap) [code = DTAP/TDAP/TD VACCINES (2 - Td or Tdap)] Future Scheduled 2025-04-02 DTAP/TDAP/TD [facility] 00:00:00 VACCINES (2 - Td or Medical Center Tdap) [code = DTAP/TDAP/TD VACCINES (2 - Td or Tdap)] Future Scheduled 2025-04-02 DTAP/TDAP/TD [facility] Test 00:00:00 VACCINES (2 - Td or Medical Center Tdap) [code = DTAP/TDAP/TD VACCINES (2 - Td or Tdap)] Future Scheduled 2025-04-02 DTAP/TDAP/TD [facility] Test 00:00:00 VACCINES (2 - Td or Medical Center Tdap) [code = DTAP/TDAP/TD VACCINES (2 - Td or Tdap)] Future Scheduled 2025-04-02 DTAP/TDAP/TD [facility] Test 00:00:00 VACCINES (2 - Td or Medical Center Tdap) [code = DTAP/TDAP/TD VACCINES (2 - Td or Tdap)] Future Scheduled 2023-08-13 [facility] 01:[facility]18 (#1) [code = COVID-19 VACCINE (#1)] Future Scheduled 2023-08-13 SHINGLES VACCINES (2 [facility] Test 01:48:18 of 3) [code = SHINGLES VACCINES (2 of 3)] Future Scheduled 2023-08-13 INFLUENZA VACCINE [facility] Test 01:48:18 (#1) [code = INFLUENZA VACCINE (#1)] Future Scheduled 2023-08-13 COVID-19 [facility]ACCINE [facility] Test 01:48:18 (#1) [code = COVID-19 VACCINE (#1)] Future Scheduled 2023-08-13 SHINGLES VACCINES (2 [facility] Test 01:48:18 of 3) [code = SHINGLES VACCINES (2 of 3)] Future Scheduled 2023-08-13 INFLUENZA VACCINE [facility] Test 01:48:18 (#1) [code = INFLUENZA VACCINE (#1)] Future Scheduled 2023-07-[address] [facility] Test 00:00[facility]00 [facility] Scre[facility] (12+) [code = Tobacco Cessation Counseling and Screening (12+)] Future Scheduled 2023-07-[address] [facility] Test 00:00:00 [facility] Scre[facility] (12+) [code = Tobacco Cessation Counseling and Screening (12+)] Future Scheduled 2023-07-[address] [facility] Test 00:00:00 [facility] Screening (12+) [code = Tobacco Cessation Counseling and Screening (12+)] Future Scheduled 2023-07-[address] [facility] Test 00:00:00 [facility] Screening (12+) [code = Tobacco Cessation Counseling and Screening (12+)] Future Scheduled 2023-07-[address] [facility] Test 00:00:00 [facility] Screening (12+) [code = Tobacco Cessation Counseling and Screening (12+)] Future Scheduled 2023-07-[address] [facility] Test 00:00:00 [facility] Screening (12+) [code = Tobacco Cessation Counseling and Screening (12+)] Future Scheduled 2023-07-[address] [facility] Test 00:00:00 [facility] Screening (12+) [code = Tobacco Cessation Counseling and Screening (12+)] Future Scheduled 2023-07-[address] [facility] Test 00:00:00 [facility] Screening (12+) [code = Tobacco Cessation Counseling and Screening (12+)] Future Scheduled 2023-07-[address] [facility] Test 00:00:00 [facility] Screening (12+) [code = Tobacco Cessation Counseling and Screening (12+)] Future Scheduled 2023-07-[address] [facility] Test 00:00:00 [facility] Screening (12+) [code = Tobacco Cessation Counseling and Screening (12+)] Future Scheduled 2023-07-[address] [facility] Test 00:00:00 [facility] Screening (12+) [code = Tobacco Cessation Counseling and Screening (12+)] Future Scheduled 2023-07-[address] [facility] Test 00:00:00 [facility] Screening (12+) [code = Tobacco Cessation Counseling and Screening (12+)] Future Scheduled 2023-07-[address] [facility] Test 00:00:00 [facility] Screening (12+) [code = Tobacco Cessation Counseling and Screening (12+)] Future Scheduled 2023-07-[address] [facility] Test 00:00:00 [facility] Screening (12+) [code = Tobacco Cessation Counseling and Screening (12+)] Future Scheduled 2023-07-[address] [facility] Test 00:00:00 [facility] Screening (12+) [code = Tobacco Cessation Counseling and Screening (12+)] Future Scheduled 2023-07-[address] [facility] Test 00:00:00 [facility] Screening (12+) [code = Tobacco Cessation Counseling and Screening (12+)] Future Scheduled 2023-07-[address] [facility] Test 00:00:00 [facility] Screening (12+) [code = Tobacco Cessation Counseling and Screening (12+)] Future Scheduled 2023-06-[address] [facility] Test 00:00:00 (#1) [code = Medical Center Influenza Vaccine (#1)] Future Scheduled 2023-06-[address] [facility] Test 00:00:00 (#1) [code = [facility] Influenza Vaccine (#1)] Future Scheduled 2023-06-[address] [facility] Test 00:00:00 (#1) [code = [facility] Influenza Vaccine (#1)] Future Scheduled 2023-06-[address] [facility] Test 00:00:00 (#1) [code = [facility] Influenza Vaccine (#1)] Future Scheduled 2023-05-10 DXA SCAN [code = DXA [facility] Test 00:00:00 SCAN] [facility] Future Scheduled 2023-05-10 DXA SCAN [code = DXA [facility] Test 00:00:00 SCAN] [facility] Future Scheduled 2023-05-10 DXA SCAN [code = DXA [facility] Test 00:00:00 SCAN] [facility] Future Scheduled 2023-05-10 DXA SCAN [code = DXA [facility] Test 00:00:00 SCAN] [facility] Future Scheduled 2023-05-10 DXA SCAN [code = DXA [facility] Test 00:00:00 SCAN] [facility] Future Scheduled 2023-05-10 DXA SCAN [code = DXA [facility] 00:00:00 SCAN] [facility] Future Scheduled 2023-05-10 DXA SCAN [code = DXA [facility] 00:00:00 SCAN] [facility] Future Scheduled 2023-05-10 DXA SCAN [code = DXA [facility] 00:00:00 SCAN] [facility] Future Scheduled 2023-05-10 DXA SCAN [code = DXA [facility] 00:00:00 SCAN] [facility] Future Scheduled 2023-05-10 DXA SCAN [code = DXA [facility] 00:00:00 SCAN] [facility] Future Scheduled 2023-05-10 DXA SCAN [code = DXA [facility] 00:00:00 SCAN] [facility] Future Scheduled 2023-05-10 DXA SCAN [code = DXA [facility] 00:00:00 SCAN] [facility] Future Scheduled 2023-05-10 DXA SCAN [code = DXA [facility] 00:00:00 SCAN] [facility] Future Scheduled 2023-05-10 DXA SCAN [code = DXA [facility] 00:00:00 SCAN] [facility] Future Scheduled 2023-05-10 DXA SCAN [code = DXA [facility] 00:00:00 SCAN] [facility] Future Scheduled 2023-05-10 DXA SCAN [code = DXA [facility] Test 00:00:00 SCAN] [facility] Future Scheduled 2023-05-10 DXA SCAN [code = DXA [facility] Test 00:00:00 SCAN] [facility] Future Scheduled 2023-05-10 DXA SCAN [code = DXA [facility] Test 00:00:00 SCAN] [facility] Future Scheduled 2023-05-10 DXA SCAN [code = DXA [facility] Test 00:00:00 SCAN] [facility] Future Scheduled 2023-05-10 DXA SCAN [code = DXA [facility] Test 00:00:00 SCAN] [facility] Future Scheduled 2022-11-03 SHINGLES VACCINES (2 [facility] Test 15:45:19 of 3) [code = SHINGLES VACCINES (2 of 3)] Future Scheduled 2022-11-03 INFLUENZA VACCINE [facility] 15:45:19 [code = INFLUENZA VACCINE] Future Scheduled 2022-11-03 COVID-19 VACCINE [facility] 15:45:19 (#1) [code = COVID-19 VACCINE (#1)] Future Scheduled 2022-11-02 COVID-[address] [facility] Test 10:37:45 (#1) [code = COVID-19 VACCINE (#1)] Future Scheduled 2022-11-02 SHINGLES VACCINES (2 [facility] Test 10:37:45 of 3) [code = SHINGLES VACCINES (2 of 3)] Future Scheduled 2022-11-02 INFLUENZA VACCINE [facility] Test 10:37:45 [code = INFLUENZA VACCINE] Future Scheduled 2022-10-[address] [facility] 00:00:00 (12+) [code = Medical Center DEPRESSION SCREENING (12+)] Future Scheduled 2022-10-19 F[address]S [address]ENING [facility] 00:00:00 [code = FALLS RISK Medical C enter SCREENING] Future Scheduled 2022-10-[address] [facility] Test 00:00:00 (12+) [code = Medical Center DEPRESSION SCREENING (12+)] Future Scheduled 2022-10-19 [address]CREENING [facility] Test 00:00:00 [code = FALLS RISK Medical C enter SCREENING] Future Scheduled 2022-10-[address] [facility] Test 00:00:00 (12+) [code = Medical Center DEPRESSION SCREENING (12+)] Future Scheduled 2022-10-19 F[address] SCREENING [facility] Test 00:00:00 [code = FALLS RISK Medical C enter SCREENING] Future Scheduled 2022-10-[address] [facility] Test 00:00:00 (12+) [code = Medical Center DEPRESSION SCREENING (12+)] Future Scheduled 2022-10-19 F[address]CREENING [facility] Test 00:00:00 [code = FALLS RISK Medical C enter SCREENING] Future Scheduled 2022-10-[address] [facility] Test 00:00:00 (12+) [code = Medical Center DEPRESSION SCREENING (12+)] Future Scheduled 2022-10-19 F[address]CREENING [facility] 00:00:00 [code = FALLS RISK Medical C enter SCREENING] Future Scheduled 2022-10-[address] [facility] Test 00:00:00 (12+) [code = Medical Center DEPRESSION SCREENING (12+)] Future Scheduled 2022-10-19 F[address] SCREENING [facility] Test 00:00:00 [code = FALLS RISK Medical C enter SCREENING] Future Scheduled 2022-10-[address] [facility] Test 00:00:00 (12+) [code = Medical Center DEPRESSION SCREENING (12+)] Future Scheduled 2022-10-19 [address] SCREENING [facility] Test 00:00:00 [code = FALLS RISK Medical C enter SCREENING] Future Scheduled 2022-10-[address] [facility] Test 00:00:00 (12+) [code = Medical Center DEPRESSION SCREENING (12+)] Future Scheduled 2022-10-19 [address] SCREENING [facility] Test 00:00:00 [code = FALLS RISK Medical C enter SCREENING] Future Scheduled 2022-10-[address] [facility] Test 00:00:00 (12+) [code = Medical Center DEPRESSION SCREENING (12+)] Future Scheduled 2022-10-19 [address]CREENING [facility] Test 00:00:00 [code = FALLS RISK Medical C enter SCREENING] Future Scheduled 2022-10-[address] [facility] Test 00:00:00 (12+) [code = Medical Center DEPRESSION SCREENING (12+)] Future Scheduled 2022-10-19 F[address] SCREENING [facility] Test 00:00:00 [code = FALLS RISK Medical C enter SCREENING] Future Scheduled 2022-10-[address] [facility] Test 00:00:00 (12+) [code = Medical Center DEPRESSION SCREENING (12+)] Future Scheduled 2022-10-19 F[address] SCREENING [facility] Test 00:00:00 [code = FALLS RISK Medical C enter SCREENING] Future Scheduled 2022-10-[address] [facility] Test 00:00:00 (12+) [code = Medical Center DEPRESSION SCREENING (12+)] Future Scheduled 2022-10-19 [address]CREENING [facility] 00:00:00 [code = FALLS RISK Medical C enter SCREENING] Future Scheduled 2022-10-[address] [facility] 00:00:00 (12+) [code = Medical Center DEPRESSION SCREENING (12+)] Future Scheduled 2022-10-19 [address]CREENING [facility] 00:00:00 [code = FALLS RISK Medical C enter SCREENING] Future Scheduled 2022-10-02 COVID-[address] [facility] Test 08:53:26 (#1) [code = COVID-19 VACCINE (#1)] Future Scheduled 2022-10-02 SHINGLES VACCINES (2 [facility] Test 08:53:26 of 3) [code = SHINGLES VACCINES (2 of 3)] Future Scheduled 2022-10-02 INFLUENZA VACCINE [facility] 08:53:26 [code = INFLUENZA VACCINE] Future Scheduled 2022-10-02 COVID-[address] [facility] Test 08:53:26 (#1) [code = COVID-19 VACCINE (#1)] Future Scheduled 2022-10-02 SHINGLES VACCINES (2 [facility] Test 08:53:26 of 3) [code = SHINGLES VACCINES (2 of 3)] Future Scheduled 2022-10-02 INFLUENZA VACCINE [facility] 08:53:26 [code = INFLUENZA VACCINE] Future Scheduled 2022-10-02 COVID-[address] [facility] Test 08:53:26 (#1) [code = COVID-19 VACCINE (#1)] Future Scheduled 2022-10-02 SHINGLES VACCINES (2 [facility] Test 08:53:26 of 3) [code = SHINGLES VACCINES (2 of 3)] Future Scheduled 2022-10-02 INFLUENZA VACCINE [facility] Test 08:53:26 [code = INFLUENZA VACCINE] Future Scheduled 2022-07-09 INFLUENZA VACCINE [facility] Test 09:36:26 [code = INFLUENZA VACCINE] Future Scheduled 2022-07-09 HEPATITIS B VACCINES [facility] Test 09:36:26 (1 of 3 - 3-dose series) [code = HEPATITIS B VACCINES (1 of 3 - 3-dose series)] Future Scheduled 2022-07-09 [facility] (#1) [code = COVID-19 VACCINE (#1)] Future Scheduled 2022-07-09 SHINGLES VACCINES (2 [facility] Test 09:36:26 of 3) [code = SHINGLES VACCINES (2 of 3)] Future Scheduled 2022-07-09 INFLUENZA VACCINE [facility] Test 09:36:26 [code = INFLUENZA VACCINE] Future Scheduled 2022-07-09 HEPATITIS B VACCINES [facility] Test 09:36:26 (1 of 3 - 3-dose series) [code = HEPATITIS B VACCINES (1 of 3 - 3-dose series)] Future Scheduled 2022-07-09 [facility] 09:36:26 (#1) [code = COVID-19 VACCINE (#1)] Future Scheduled 2022-07-09 SHINGLES VACCINES (2 [facility] Test 09:36:26 of 3) [code = SHINGLES VACCINES (2 of 3)] Future Scheduled 2022-06-[address] [facility] Test 00:00:00 (#1) [code = Medical Center INFLUENZA VACCINE (#1)] Future Scheduled 2022-06-[address] [facility] Test 00:00:00 (#1) [code = Medical Center INFLUENZA VACCINE (#1)] Future Scheduled 2022-06-19 INFLUENZA VACCINE [facility] 00:00:00 (#1) [code = Medical Center INFLUENZA VACCINE (#1)] Future Scheduled 2022-06-[address] [facility] 00:00:00 (#1) [code = Medical Center INFLUENZA VACCINE (#1)] Future Scheduled 2022-06-[address] [facility] 00:00:00 (#1) [code = Medical Center INFLUENZA VACCINE (#1)] Future Scheduled 2022-06-[address] [facility] 00:00:00 (#1) [code = Medical Center INFLUENZA VACCINE (#1)] Future Scheduled 2021-11-22 COVID-19 VACCINE ([address] [facility] 00:00:00 - Booster for Medical Center Moderna series) [code = COVID-19 VACCINE (4 - Booster for Moderna series)] Future Scheduled 2021-11-22 COVID-19 VACCINE ([address] [facility] 00:00:00 - Booster for Medical Center Moderna series) [code = COVID-19 VACCINE (4 - Booster for Moderna series)] Future Scheduled 2021-11-22 COVID-19 VACCINE ([address] [facility] 00:00:00 - Booster for Medical Center Moderna series) [code = COVID-19 VACCINE (4 - Booster for Moderna series)] Future Scheduled 2021-11-22 COVID-19 VACCINE ([address] [facility] 00:00:00 - Booster for Medical Center Moderna series) [code = COVID-19 VACCINE (4 - Booster for Moderna series)] Future Scheduled 2021-11-22 COVID-19 VACCINE ([address] [facility] 00:00:00 - Booster for Medical Center Moderna series) [code = COVID-19 VACCINE (4 - Booster for Moderna series)] Future Scheduled 2021-11-22 COVID-19 VACCINE ([address] [facility] 00:00:00 - Booster for Medical Center Moderna series) [code = COVID-19 VACCINE (4 - Booster for Moderna series)] Future Scheduled 2021-11-22 COVID-19 VACCINE ([address] [facility] 00:00:00 - Booster for Medical Center Moderna series) [code = COVID-19 VACCINE (4 - Booster for Moderna series)] Future Scheduled 2021-11-22 COVID-19 VACCINE ([address] [facility] 00:00:00 - Booster for Medical Center Moderna series) [code = COVID-19 VACCINE (4 - Booster for Moderna series)] Future Scheduled 2021-11-22 COVID-19 VACCINE ([address] [facility] 00:00:00 - Booster for Medical Center Moderna series) [code = COVID-19 VACCINE (4 - Booster for Moderna series)] Future Scheduled 2021-11-22 COVID-19 VACCINE ([address] [facility] 00:00:00 - Booster for Medical Center Moderna series) [code = COVID-19 VACCINE (4 - Booster for Moderna series)] Future Scheduled 2021-11-22 COVID-19 VACCINE ([address] [facility] 00:00:00 - Booster for Medical Center Moderna series) [code = COVID-19 VACCINE (4 - Booster for Moderna series)] Future Scheduled 2021-11-22 COVID-19 VACCINE ([address] [facility] 00:00:00 - Booster for Medical Center Moderna series) [code = COVID-19 VACCINE (4 - Booster for Moderna series)] Future Scheduled 2021-11-22 COVID-19 VACCINE ([address] [facility] 00:00:00 - Booster for Medical Center Moderna series) [code = COVID-19 VACCINE (4 - Booster for Moderna series)] Future Scheduled 2021-10-25 COVID-19 VACCINE ([address] [facility] 00:00:00 - Booster for Medical Center Moderna series) [code = COVID-19 VACCINE (4 - Booster for Moderna series)] Future Scheduled 2021-10-25 COVID-19 VACCINE ([address] [facility] 00:00:00 - Booster for Medical Center Moderna series) [code = COVID-19 VACCINE (4 - Booster for Moderna series)] Future Scheduled 2021-10-25 COVID-19 VACCINE ([address] [facility] 00:00:00 - Booster for Medical Center Moderna series) [code = COVID-19 VACCINE (4 - Booster for Moderna series)] Future Scheduled 2021-10-25 COVID-19 VACCINE ([address] [facility] 00:00:00 - Booster for Medical Center Moderna series) [code = COVID-19 VACCINE (4 - Booster for Moderna series)] Future Scheduled 2021-10-25 COVID-19 VACCINE ([address] [facility] 00:00:00 - Booster for Medical Center Moderna series) [code = COVID-19 VACCINE (4 - Booster for Moderna series)] Future Scheduled 2021-10-25 COVID-19 VACCINE ([address] [facility] 00:00:00 - Booster for Medical Center Moderna series) [code = COVID-19 VACCINE (4 - Booster for Moderna series)] Future Scheduled 2021-10-25 COVID-19 VACCINE ([address] [facility] 00:00:00 - Booster for Medical Center Moderna series) [code = COVID-19 VACCINE (4 - Booster for Moderna series)] Future Scheduled 2020-10-[address] [facility] 00:[facility]:00 WELLNESS (YEAR 2 or Medical Center FIRST YEAR if no IPPE) [code = MEDICARE ANNUAL WELLNESS (YEAR 2 or FIRST YEAR if no IPPE)] Future Scheduled 2020-10-[address] [facility] 00:00:00 WELLNESS (YEAR 2 or Medical Center FIRST YEAR if no IPPE) [code = MEDICARE ANNUAL WELLNESS (YEAR 2 or FIRST YEAR if no IPPE)] Future Scheduled 2020-10-[address] [facility] 00:00:00 WELLNESS (YEAR 2 or Medical Center FIRST YEAR if no IPPE) [code = MEDICARE ANNUAL WELLNESS (YEAR 2 or FIRST YEAR if no IPPE)] Future Scheduled 2020-10-[address] [facility] 00:00:00 WELLNESS (YEAR 2 or Medical Center FIRST YEAR if no IPPE) [code = MEDICARE ANNUAL WELLNESS (YEAR 2 or FIRST YEAR if no IPPE)] Future Scheduled 2020-10-[address] [facility] 00:00:00 WELLNESS (YEAR 2 or Medical Center FIRST YEAR if no IPPE) [code = MEDICARE ANNUAL WELLNESS (YEAR 2 or FIRST YEAR if no IPPE)] Future Scheduled 2020-10-[address] [facility] 00:00:00 WELLNESS (YEAR 2 or Medical Center FIRST YEAR if no IPPE) [code = MEDICARE ANNUAL WELLNESS (YEAR 2 or FIRST YEAR if no IPPE)] Future Scheduled 2020-10-[address] [facility] 00:00:00 WELLNESS (YEAR 2 or Medical Center FIRST YEAR if no IPPE) [code = MEDICARE ANNUAL WELLNESS (YEAR 2 or FIRST YEAR if no IPPE)] Future Scheduled 2020-10-[address] [facility] 00:00:00 WELLNESS (YEAR 2 or Medical Center FIRST YEAR if no IPPE) [code = MEDICARE ANNUAL WELLNESS (YEAR 2 or FIRST YEAR if no IPPE)] Future Scheduled 2020-10-[address] [facility] 00:00:00 WELLNESS (YEAR 2 or Medical Center FIRST YEAR if no IPPE) [code = MEDICARE ANNUAL WELLNESS (YEAR 2 or FIRST YEAR if no IPPE)] Future Scheduled 2020-10-[address] [facility] 00:00:00 WELLNESS (YEAR 2 or Medical Center FIRST YEAR if no IPPE) [code = MEDICARE ANNUAL WELLNESS (YEAR 2 or FIRST YEAR if no IPPE)] Future Scheduled 2020-10-[address] [facility] 00:00:00 WELLNESS (YEAR 2 or Medical Center FIRST YEAR if no IPPE) [code = MEDICARE ANNUAL WELLNESS (YEAR 2 or FIRST YEAR if no IPPE)] Future Scheduled 2020-10-[address] [facility] 00:00:00 WELLNESS (YEAR 2 or Medical Center FIRST YEAR if no IPPE) [code = MEDICARE ANNUAL WELLNESS (YEAR 2 or FIRST YEAR if no IPPE)] Future Scheduled 2020-10-[address] [facility] 00:00:00 WELLNESS (YEAR 2 or Medical Center FIRST YEAR if no IPPE) [code = MEDICARE ANNUAL WELLNESS (YEAR 2 or FIRST YEAR if no IPPE)] Future Scheduled 2020-10-[address] [facility] 00:00:00 WELLNESS (YEAR 2 or Medical Center FIRST YEAR if no IPPE) [code = MEDICARE ANNUAL WELLNESS (YEAR 2 or FIRST YEAR if no IPPE)] Future Scheduled 2020-10-[address] [facility] 00:00:00 WELLNESS (YEAR 2 or Medical Center FIRST YEAR if no IPPE) [code = MEDICARE ANNUAL WELLNESS (YEAR 2 or FIRST YEAR if no IPPE)] Future Scheduled 2020-10-[address] [facility] 00:00:00 WELLNESS (YEAR 2 or Medical Center FIRST YEAR if no IPPE) [code = MEDICARE ANNUAL WELLNESS (YEAR 2 or FIRST YEAR if no IPPE)] Future Scheduled 2020-10-[address] [facility] 00:00:00 WELLNESS (YEAR 2 or Medical Center FIRST YEAR if no IPPE) [code = MEDICARE ANNUAL WELLNESS (YEAR 2 or FIRST YEAR if no IPPE)] Future Scheduled 2020-10-[address] [facility] 00:00:00 WELLNESS (YEAR 2 or Medical Center FIRST YEAR if no IPPE) [code = MEDICARE ANNUAL WELLNESS (YEAR 2 or FIRST YEAR if no IPPE)] Future Scheduled 2020-10-[address] [facility] 00:00:00 WELLNESS (YEAR 2 or Medical Center FIRST YEAR if no IPPE) [code = MEDICARE ANNUAL WELLNESS (YEAR 2 or FIRST YEAR if no IPPE)] Future Scheduled 2020-10-[address] [facility] 00:00:00 WELLNESS (YEAR 2 or Medical Center FIRST YEAR if no IPPE) [code = MEDICARE ANNUAL WELLNESS (YEAR 2 or FIRST YEAR if no IPPE)] Future Scheduled 2010-12-14 SHINGLES VACCINES ([address] [facility] 00:00:00 of 2) [code = Medical Center SHINGLES VACCINES (1 of 2)] Future Scheduled 2010-12-14 SHINGLES VACCINES ([address] [facility] 00:00:00 of 2) [code = Medical Center SHINGLES VACCINES (1 of 2)] Future Scheduled 2010-12-14 SHINGLES VACCINES ([address] [facility] 00:00:00 of 2) [code = Medical Center SHINGLES VACCINES (1 of 2)] Future Scheduled 2010-12-14 SHINGLES VACCINES ([address] [facility] 00:00:00 of 3) [code = Medical Center SHINGLES VACCINES (2 of 3)] Future Scheduled 2010-12-14 SHINGLES VACCINES ([address] [facility] 00:00:00 of 3) [code = Medical Center SHINGLES VACCINES (2 of 3)] Future Scheduled 2010-12-14 SHINGLES VACCINES ([address] [facility] 00:00:00 of 3) [code = Medical Center SHINGLES VACCINES (2 of 3)] Future Scheduled 2010-12-14 SHINGLES VACCINES ([address] [facility] 00:00:00 of 3) [code = Medical Center SHINGLES VACCINES (2 of 3)] Future Scheduled 2010-12-14 SHINGLES VACCINES ([address] [facility] 00:00:00 of 3) [code = Medical Center SHINGLES VACCINES (2 of 3)] Future Scheduled 2010-12-14 SHINGLES VACCINES ([address] [facility] 00:00:00 of 3) [code = Medical Center SHINGLES VACCINES (2 of 3)] Future Scheduled 2010-12-14 SHINGLES VACCINES ([address] [facility] 00:00:00 of 3) [code = Medical Center SHINGLES VACCINES (2 of 3)] Future Scheduled 2010-12-14 SHINGLES VACCINES ([address] [facility] 00:00:00 of 3) [code = Medical Center SHINGLES VACCINES (2 of 3)] Future Scheduled 2010-12-14 SHINGLES VACCINES ([address] [facility] 00:00:00 of 3) [code = Medical Center SHINGLES VACCINES (2 of 3)] Future Scheduled 2010-12-14 SHINGLES VACCINES ([address] [facility] 00:00:00 of 3) [code = Medical Center SHINGLES VACCINES (2 of 3)] Future Scheduled 2010-12-14 SHINGLES VACCINES ([address] [facility] 00:00:00 of 3) [code = Medical Center SHINGLES VACCINES (2 of 3)] Future Scheduled 2010-12-14 SHINGLES VACCINES ([address] [facility] 00:00:00 of 3) [code = Medical Center SHINGLES VACCINES (2 of 3)] Future Scheduled 2010-12-14 SHINGLES VACCINES ([address] [facility] 00:00:00 of 3) [code = Medical Center SHINGLES VACCINES (2 of 3)] Future Scheduled 2010-12-14 SHINGLES VACCINES ([address] [facility] 00:00:00 of 2) [code = Medical Center SHINGLES VACCINES (1 of 2)] Future Scheduled 2010-12-14 SHINGLES VACCINES ([address] [facility] 00:00:00 of 2) [code = Medical Center SHINGLES VACCINES (1 of 2)] Future Scheduled 2010-12-14 SHINGLES VACCINES ([address] [facility] 00:00:00 of 2) [code = Medical Center SHINGLES VACCINES (1 of 2)] Future Scheduled 2010-12-14 SHINGLES VACCINES ([address] [facility] 00:00:00 of 2) [code = Medical Center SHINGLES VACCINES (1 of 2)] Future Scheduled [address] [facility]:00 SCREENING [code = Medical Ce nter HEPATITIS C SCREENING] Future Scheduled [address] [facility] 00:00:00 SCREENING [code = Medical Ce nter HEPATITIS C SCREENING] Future Scheduled [address] [facility] 00:00:00 SCREENING [code = Medical Ce nter HEPATITIS C SCREENING] Future Scheduled [address] [facility] 00:00:00 SCREENING [code = Medical Ce nter HEPATITIS C SCREENING] Future Scheduled [address] [facility] 00:00:00 SCREENING [code = Medical Ce nter HEPATITIS C SCREENING] Future Scheduled [address] [facility] 00:00:00 SCREENING [code = Medical Ce nter HEPATITIS C SCREENING] Future Scheduled [address] [facility] 00:00:00 SCREENING [code = Medical Ce nter HEPATITIS C SCREENING] Future Scheduled [address] [facility] 00:00:00 SCREENING [code = Medical Ce nter HEPATITIS C SCREENING] Future Scheduled [address] [facility] 00:00:00 SCREENING [code = Medical Ce nter HEPATITIS C SCREENING] Future Scheduled [address] [facility] 00:00:00 SCREENING [code = Medical Ce nter HEPATITIS C SCREENING] Future Scheduled [address] [facility] 00:00:00 SCREENING [code = Medical Ce nter HEPATITIS C SCREENING] Future Scheduled [address] [facility] 00:00:00 SCREENING [code = Medical Ce nter HEPATITIS C SCREENING] Future Scheduled [address] [facility] 00:00:00 SCREENING [code = Medical Ce nter HEPATITIS C SCREENING] Future Scheduled [address] [facility] 00:00:00 SCREENING [code = Medical Ce nter HEPATITIS C SCREENING] Future Scheduled [address] [facility] 00:00:00 SCREENING [code = Medical Ce nter HEPATITIS C SCREENING] Future Scheduled [address] [facility] 00:00:00 SCREENING [code = Medical Ce nter HEPATITIS C SCREENING] Future Scheduled [address] [facility] 00:00:00 Counseling and Medical Cente r Screening (12+) [code = Tobacco Cessation Counseling and Screening (12+)] Encounters Start End Encounter Admission Attending Care Care Encounter Source Date/Time Date/Time Type Type Clinicians Facility Department ID 2023-04-30 Inpatient Elective Erazo, Ondina [facility] [id number] [facility] 00:00:00 15 2022-06-24 Inpatient Elective Erazo, Ondina [facility] [id number] [facility] 10:00:00 52 2021-07-26 Outpatient ANTHONY PINZON [facility] Surgery [id number] SLE 14:55:46 DEMI 2021-07-24 Inpatient PADMINI ERNIE [facility] Surgery [id number] SLE 07:23:09 2021-07-24 Outpatient SABRINA IVIS [facility] Surgery [id number] SLE 04:05:40 2021-06-06 Inpatient Elective Erazo, Ondina [facility] [id number] [facility] 10:30:00 46 2021-04-03 Inpatient Elective Erazo, Ondina [facility] [id number] [facility] 11:00:00 25 2021-02-21 Inpatient Elective Erazo, Ondina [facility] [id number] [facility] 11:00:00 22 2020-09-11 Inpatient JOCY SANTIAGOJavi ONEYDA [facility] Internal [id number] SLS 22:55:00 Med 2023-06-29 2023-06-[address] [facility] [id number] [facility] 09:59:43 23:59:00 MARCELA 2023-06-29 2023-06-29 [facility] [id number] 09:59:43 23:59:00 Encounter Marcela [facility] 2023-06-29 2023[facility]06-29 [facility] [id number] 09:59:43 23:59:00 Encounter [facility] 2023-06-29 2023-06-29 Outpatient ANTHONY POWELL SLE SLE [id number] [facility] 09:59:19 23:59:00 MARCELA 2023-06-29 2023-06-29 [facility] [id number] 09:59:19 23:59:00 Encounter [facility] 2023-06-29 2023-06-29 [facility] [id number] 09:59:19 23:59:00 Encounter [facility] 2023-06-29 2023-06-29 Outpatient ANTHONY POWELL SLE SLE [id number] [facility] 09:58:51 09:58:51 MARCELA 2023-06-29 2023-06-29 [facility] [id number] 09:58:51 09:58:51 Encounter [facility] 2023-06-29 2023-06-29 [facility] [id number] 09:58:51 09:58:51 Encounter [facility] 2023-06-12 2023-06-12 Outside [facility] [id number] 00:00:00 00:00:00 Orders [facility] 2023-06-12 2023-06-12 Outside [facility] [id number] 00:00:00 00:00:00 Orders [facility] 2023-06-11 2023-06-11 Orders [facility] [id number] 00:00:00 00:00:00 Only [facility] 2023-06-11 2023-06-[address] [facility] [id number] 00:00:00 00:00:[address] [facility] 2023-03-09 2023-03-09 [facility] [id number] 11:00:00 11:00:00 Encounter [facility] 2023-03-09 2023-03-09 [facility] [id number] 11:00:00 11:00:00 Encounter [facility] 2023-02-02 2023-02-02 Historical [facility] [id number] 00:00:00 00:00:00 Encounter Mariluz Bhattibeth [facility] 2023-02-02 2023-02-[address] [facility] [id number] 00:00:00 00:00:00 Encounter Mariluz Portillo [facility] 2023-01-28 2023-01-28 Outpatient SAKSHI NORWOOD [id number] [facility] 00:00:00 00:00:00 MARLON Seybol d 2023-01-28 2023-01-28 Outpatient SAKSHI NORWOOD [id number] [facility] 00:00:00 00:00:00 MARLON Seybol d 2023-01-26 2023-01-26 [facility] [id number] [facility] 09:07:19 23:59:00 Encounter [facility] 2023-01-26 2023-01-26 [facility] [id number] [facility] 09:07:19 23:59:00 Encounter [facility] 2023-01-26 2023-01-26 Outpatient THOMAS OTOOLE [facility] [id number] [facility] 09:07:18 23:59:00 [facility] 2022-12-26 2022-12-[address] [facility] [id number] 00:00:00 00:00:[address] [facility] 2022-12-26 2022-12-26 Outside [place], [facility] [id number] 00:00:00 00:00:[address] [facility] 2022-12-02 2022-12-02 Outpatient SAKSHI NORWOOD [id number] [facility] 00:00:00 00:00:00 MARLON Seybol d 2022-12-02 2022-12-02 Outpatient SAKSHI NORWOOD [id number] [facility] 00:00:00 00:00:00 MARLON Seybol d 2022-11-10 2022-11-10 Outpatient EL ERAZO, ONDINA SLE [facility] [id number] SLE[facility] 10:41:59 23:59:00 2022-11-10 2022-11-10 Hospital Erazo, Ondina [facility] [id number] 10:41:59 23:59:00 Encounter [facility] 2022-11-10 2022-11-10 [facility] [id number] 10:41:59 23:59:00 Encounter [facility] 2022-10-24 2022-10-24 Outpatient Elective Erazo, Ondina [facility] [id number] [facility] 09:27:00 12:31:00 48 2022-10-24 2022-10-24 Outside Erazo, Ondina [facility] [id number] 00:00:00 00:00:00 Orders [facility] 2022-10-24 2022-10-24 Outside Erazo, Ondina [facility] [id number] 00:00:00 00:00:00 Orders [facility] 2022-08-21 2022-08-[address] [facility] [id number] 00:00:00 00:00:00 Encounter Guerita Arita [facility] 2022-08-21 2022-08-[address] [facility] [id number] 00:00:00 00:00:00 Encounter Guerita Arita [facility] 2022-07-15 2022-07-18 Inpatient [facility] [id number] [facility] 05:18:00 17:12:00 2022-07-15 2022-07-18 [facility] Ernie Jones [facility] [id number] 05:18:00 17:12:00 Encounter [facility] 2022-07-15 2022-07-[address] [facility] [id number] 07:23:00 12:29:00 Event Steven Marck Gerardo [facility] 2022-07-15 2022-07-15 [facility] Ernie [place] [facility] [id number] 07:30:00 11:00:[address] [facility] 2022-07-14 2022-07-[address] [facility] [id number] SLE 12:22:20 23:59:00 2022-07-14 2022-07-14 [facility] Ernie [place] [facility] [id number] 10:15:00 23:59:00 Encounter [facility] 2022-07-14 2022-07-[address] [facility] [id number] [facility] 00:00:00 00:00:00 [facility] 2022-07-11 2022-07-[address] [facility] [id number] SLE 09:56:49 23:59:00 2022-07-11 2022-07-11 [facility] Ernie [place] [facility] [id number] 09:56:49 23:59:00 Encounter [facility] 2022-07-11 2022-07-11 Outpatient ERNIE JONES [facility] [id number] [facility] 09:23:01 09:55:00 2022-07-11 2022-07-11 [facility] Ernie Jones [facility] [id number] 09:23:01 09:55:00 Encounter [facility] 2022-07-11 2022-07-11 Outpatient ERNIE JONES SLE SLE [id number] [facility] 09:22:15 09:22:15 2022-07-11 2022-07-11 [facility] Ernie [place] [facility] [id number] 09:22:15 09:22:15 Encounter [facility] 2022-07-11 2022-07-11 Outpatient ANTHONY SLE SLE [id number] [facility] 09:22:06 09:22:06 2022-07-11 2022-07-11 Outpatient ANTHONY NORWOOD SLE SLE [id number] [facility] 08:07:28 09:21:00 [facility] 2022-07-11 2022-07-11 [facility] [id number] 08:07:28 09:21:00 Encounter [facility] 2022-07-11 2022-07-11 Outpatient ADDIE OTOOLE SLE [id number] SLE 08:07:18 09:21:00 [facility] 2022-07-11 2022-07-11 [facility] [id number] 08:07:18 09:21:00 Encounter [facility] 2022-07-11 2022-07-[address] [facility] [id number] 00:00:00 00:00:00 [facility] 2022-06-20 2022-06-20 [facility] [id number] 00:00:00 00:00:[address] [facility] 2022-06-06 2022-06-06 Outpatient ADDIE GAMBINO SLE [id number] [facility] 12:21:55 23:59:00 [facility] 2022-06-06 2022-06-06 [facility] [id number] 10:00:00 23:59:[address] [facility] 2022-06-06 2022-06-06 Outpatient UR LEONARD, [facility] Surgery [id number] [facility] 07:35:00 16:25:00 [facility] 2022-06-06 2022-06-06 [facility] FOREIGN Garza, [facility] [id number] 07:35:00 16:25:[address] [facility] 2022-06-06 2022-06-06 Surgery Virtual, [facility] [id number] 10:30:00 11:00:00 Surgeon [facility] 2022-06-05 2022-06-05 [facility] [id number] 23:59:00 23:59:[address] [facility] 2022-06-05 2022-06-05 Outpatient ANTHONY GARZA SLEH SLEH [id number] [facility] 00:00:00 23:59:00 [facility] 2022-06-02 2022-06-02 [facility] [id number] 23:59:00 23:59:00 Encounter [facility] 2022-06-02 2022-06-02 Outpatient EL SLEH SLEH [id number] [facility] 11:00:34 23:59:00 2022-06-02 2022-06-02 [facility] [id number] 11:00:34 23:59:00 Encounter [facility] 2022-06-02 2022-06-02 Outpatient [facility] [id number] [facility] 00:00:00 23:59:00 2022-05-26 2022-05-26 Outpatient ANTHONY CORLEY, SLE [facility] [id number] [facility] 08:40:45 23:59:00 [facility] 2022-05-26 2022-05-26 [facility] Jocelynn Corley [facility] [id number] [facility] [address] 08:40:45 23:59:00 Encounter 1, [facility] [address] [facility] 2022-05-26 2022-05-26 [facility] [id number] 00:00:00 00:00:00 [address]а Morales [facility] 2022-04-07 2022-04-10 Outpatient Elective Erazo[facility] [id number] [facility] 11:43:00 08:19:00 60 2022-04-03 2022-04-03 Outpatient EL ERAZO, ONDINA [facility] SLE[facility] [id number] [facility] 14:44:22 23:59:00 2022-04-03 2022-04-03 [facility], Ondina Nolberto [facility] [id number] 14:44:22 23:59:00 Encounter 1, [facility] 2022-03-31 2022-03-31 Outside [facility], [facility] [id number] 00:00:00 00:00:00 Orders [facility] 2022-03-24 2022-03-24 Outside [place], Ondina [facility] [id number] 00:00:00 00:00:00 Orders [facility] 2022-03-05 2022-03-[address] [facility] [id number] 00:00:00 00:00:00 Orders [facility] 2022-01-31 2022-01-31 Outside [facility], [facility] [id number] 00:00:00 00:00:00 Orders [facility] 2022-01-29 2022-01-29 Outpatient EL POP, SLEH SLEH [id number] [facility]H 08:18:53 23:59:00 GUERITA 2022-01-29 2022-01-29 [facility] Guerita Lord Fatimah [facility] [id number] 08:18:53 23:59:00 Encounter 3, [facility] 2021-12-30 2021-12-30 Outpatient EL TERRENCE, SLEH SLEH [id number] SLEH 10:37:52 23:59:00 [facility] 2021-12-30 2021-12-30 Hospital [facility], [facility] [id number] 10:37:52 23:59:[address] [facility] 2021-12-30 2021-12-30 Outpatient [facility] SLE [id number] SLEH 10:37:42 23:59:00 [facility] 2021-12-30 2021-12-30 Hospital [facility], [facility] [id number] 10:37:42 23:59:[address] [facility] 2021-12-05 2021-12-05 Outside [facility], [facility] [id number] 00:00:00 00:00:[address] [facility] 2021-11-25 2021-11-25 Outside [facility] [id number] 00:00:00 00:00:00 Orders Guerita [facility] 2021-09-18 2021-09-19 Outpatient Elective [place], Ondina [facility] JM0 [id number] [facility] 09:32:00 06:00:00 49 2021-08-15 2021-08-15 [facility] [id number] SLEH 11:51:00 15:20:00 [facility] 2021-08-15 2021-08-15 Hospital [facility] [id number] 11:51:00 15:20:[address] [facility] 2021-08-15 2021-08-[address] [facility] [id number] 13:26:00 14:07:00 Event Maxime Gonzalez [facility] 2021-08-15 2021-08-15 [facility] [id number] 13:30:00 14:00:00 [facility] 2021-08-15 2021-08-[address] [facility] [id number] [facility] 00:00:00 00:00:00 [facility] 2021-08-14 2021-08-14 Outpatient EL SLE SLE [id number] SLEH 13:02:28 23:59:00 2021-08-14 2021-08-14 [facility] [id number] 11:50:00 23:59:00 Encounter [facility] 2021-08-14 2021-08-[address] [facility] [id number] [facility] 00:00:00 00:00:00 [facility] 2021-06-04 2021-06-04 Outpatient EL ONDINA ERAZO SLE SLEH [id number] SLEH 00:00:00 00:00:00 2021-05-10 2021-05-10 Outpatient EL POP, SLE SLEH [id number] SLEH 00:00:00 00:00:00 GUERITA 2021-03-12 2021-03-12 Outpatient EL SLEH SLEH [id number] [facility]H 00:00:00 00:00:00 2021-03-04 2021-03-04 [place] [id number] 18:12:00 21:06:00 Sabrina Dao 350.1.13.10 [place] 4.2.7.2.686 [place] [id number] [facility] 2021-03-04 2021-03-04 Emergency [place], [facility] [id number] [facility] 18:12:00 21:06:00 Sabrina Dao 350.1.13.10 ity [facility] 4.2.7.[address] [place] [address] [id number] 2021-03-04 2021-03-04 Emergency X [facility] ERT [id number] Univers 18:09:00 18:09:00 ity of [facility] 2021-03-04 2021-03-04 Orders Doctor MEZA [id number] 00:00:00 00:00:00 Only Unassigned, ROSALINDA 350.1.13.10 [place] [facility] 4.2.7.2.686 [id number] 2021-03-04 2021-03-04 Orders Doctor DERRICK [id number] [facility] 00:00:00 00:00:00 Only Unassigned, ROSALINDA 350.1.13.10 ity of [place] [facility] 4.2.7.2.686 Brett as [id number] [facility] [address] 2021-01-09 2021-01-[address] [facility] [id number] SLE 00:00:00 00:00:00 GUERITA 2020-12-03 2020-12-03 Outpatient ANTHONY LORD SLE SLE [id number] SLE 00:00:00 00:00:00 GUERITA 2020-10-24 2020-10-24 Outpatient ANTHONY LOJA, SLE SLE [id number] SLE 00:00:00 00:00:00 CLAUDIA 2020-09-15 2020-09-15 [facility] [id number] 14:10:00 16:11:00 Brooke Dao 350.1.13.10 [place] 4.2.7.2.686 [place] [id number] [facility] 2020-09-15 2020-09-15 [facility] [id number] Univers 14:10:00 16:11:00 Brooke Dao 350.1.13.10 ity of [place] 4.2.7.2.686 [facility] [id number] [address] 2020-09-15 2020-09-15 Emergency [facility] ERT [id number] Univers 14:10:00 14:10:00 BROOKE ity of [facility] 2020-09-11 2020-09-11 Emergency [facility] [id number] Univers 15:44:00 21:53:00 Gretta Dao 350.1.13.10 i ty of [place] 4.2.7.2.686 [facility] [id number] [address] 2020-09-11 2020-09-11 Emergency [facility] [id number] 15:44:00 21:53:00 Gretta Dao 350.1.13.10 [place] 4.2.7.2.686 [place] [id number] 2020-09-11 2020-09-11 Emergency X [facility] ERT [id number] Univers 15:44:00 15:44:00 [facility] 2020-07-26 2020-07-26 Outpatient EL SLEH SLEH [id number] SLEH 00:00:00 00:00:00 2020-07-23 2020-07-23 Outpatient EL SLEH SLEH [id number] SLEH 00:00:00 00:00:00 2020-07-23 2020-07-23 Outpatient EL SLEH SLEH [id number] SLEH 00:00:00 00:00:00 2020-07-23 2020-07-23 Outpatient EL SLEH SLEH [id number] SLEH 00:00:00 00:00:00 2020-07-23 2020-07-23 Outpatient EL SLEH SLEH [id number] SLEH 00:00:00 00:00:00 2020-06-22 2020-06-22 Outpatient IVIS CULP SLEH SLEH [id number] SLEH 00:00:00 00:00:00 2020-06-21 2020-06-21 Outpatient SLEH SLEH [id number] SLEH 09:10:35 09:10:35 2020-06-19 2020-06-19 Outpatient IVIS CULP SLEH SLEH [id number] SLEH 00:00:00 00:00:00 2020-06-19 2020-06-19 Outpatient EL SLEH SLEH [id number] SLEH 00:00:00 00:00:00 2020-06-19 2020-06-19 Outpatient IVIS CULP SLEH SLEH [id number] SLEH 00:00:00 00:00:00 2020-06-15 2020-06-15 Outpatient EL SLEH SLEH [id number] SLEH 00:00:00 00:00:00 2020-06-05 2020-06-05 Outpatient EL ANTHONYARISTEOAmber SLEH SLEH [id number] SLEH 00:00:00 00:00:00 HAZEM 2020-05-23 2020-05-23 Outpatient EL SLEH SLEH [id number] SLEH 00:00:00 00:00:00 2020-01-18 2020-01-18 Outpatient David_Pamela MMG MMG [id number] [place] 10:52:00 10:52:00 0401 [facility] Results Test Description Test Test Comments Results Result Sourc e Time Comments XR SPINE 2023-06- CERVICAL 12 COMPLETE 4 [facility] 09:46:29 [facility] 1945 Sex: F XR SPINE CERVICAL COMPLETE 4 VIEWS MININDICATION: Neck painCOMPARISON: NoneTECHNIQUE: AP, lateral and open-mouth odontoid radiographs of thecervical spineFINDINGS/IMPRESSION:M ild osteopenia. Maintenance of lordosis.Vertebral body height is maintained and there is no radiographicallyfracture.N o acute findings within the paraspinal soft tissues.Right-sided foraminal stenosis at C3-C4 and C5-C6. Left-sided foraminalstenosis at C3-C4. Electronically Signed By: Cass Del Angel06/30/2023 09:48 CDTWorkstation Name: [id number] XR SHOULDER 2023-06- COMPLETE 2 VIEWS 12 MIN RIGHT 09:26:45 [facility] 1945 Sex: F XR SHOULDER COMPLETE 2 VIEWS MIN RIGHTINDICATION: Neck painCOMPARISON: NoneTECHNIQUE: AP, lateral and oblique radiographs of the right shoulderFINDINGS/IMPRESSIO N:No acute fracture or malalignment Electronically Signed By: Cass Del Angel06/30/2023 09:28 CDTWorkstation Name: [id number] FL ESOPHAGUS 2023-06- 11 12:43:01 [facility] CENTER[facility]: MISAEL SLADE : 1945 Sex: F ESOPHAGRAMCLINICA L HISTORY: Malignant neoplasm of tonsil, dysphasiaCOMPARISON: NoneFluoroscopy Time: 1.8 minutesReference Air Kerma (Ka, r): 24.60 mGy. TECHNIQUE/FINDINGS:Cushion Builder images demonstrate no significant abnormalities. Effervescentcrystals as well as thick and thin barium were provided the patientorally without complication.There is esophageal dysmotility with failure of the primary peristalticwave to clear the esophagus of contrast material. Tertiary contractionsalso noted. The esophageal mucosa is unremarkable without evidence forfixed filling defect, stricture, or other intrinsic/extrinsicabnorma lity. The gastroesophageal junction is unremarkable withoutevidence for significant hiatal hernia. The visualized gastric folds are unremarkable. No gastroesophagealreflux was noted during the course the examination.IMPRESSION:Mil d esophageal dysmotility.Otherwise, unremarkable esophagram.Electronically Signed By: Jean Ryder MD06/29/2023 12:45 CDTWorkstation Name: [id number] CT, CHEST, 2023-01- Release to WITHOUT IV 11 patient->Immedia CONTRAST 09:36:00 [facility]Which [facility] MISAEL ROME : location is 1945 Sex: preferred?->Mc[place] F irInsurance Company ID = FINAL REPORT [id number]; CT of Insurance the chest, without Company Name = contrast Clinical History: [employer]; Insurance [id number]\\S\\Malignant Company Phone neoplasm of unspecified Number = ; part of right bronchus or Policy Number = lung ; Z09\\S\\Encounter for [phone] follow-up examination after completed treatment for conditions other than malignant neoplasm Technique: CT of the chest is performed without intravenous contrast administration. This exam was performed according to our departmental dose optimization program which includes automated exposure control, adjustment of the mA and/or kV according to patient's size and/or use of iterative reconstructive technique. Comparison Film: November 10, 2022, May 26, 2022 Discussion: Visualized thyroid gland is normal. No supraclavicular, or axillary lymphadenopathy. A few mildly enlarged mediastinal lymph nodes are without significant interval change. Heart is enlarged. There is a small pericardial effusion. Status post partial resection of the right upper lobe. Prior surgical changes again noted in the right lower lobe. Patient is also status post left lower lobectomy. A 5 mm subpleural nodular opacity in the right upper lobe (image 31 is without interval change. A cluster of nodules in the left upper lobe are not changed, measuring up to 6 mm 2 groundglass nodules at the left apex (images 23 and 20) are unchanged. There is no new mass or consolidation. No effusion. Central airways are patent, no significant bronchiectasis or bronchial wall thickening. Partially imaged upper abdomen is without worrisome findings. Bony structures demonstrate degenerative changes. No suspicious bony lesion is identified. There is a healing left lateral 9th rib fracture. Impression: No interval change of mildly enlarged mediastinal lymph nodes. Several pulmonary nodules are also without interval change, amenable to continued follow-up as clinically appropriate. Small pericardial effusion. Signed: Luda Wu MDReport Verified Date/Time: 01/27/2023 09:36:49 Reading Location: [address] Ortho Consult Reading Room , CHEST, WITH 2022-10- CT Thorax with IV CONTRAST 23 Contrast 12:05:00 [id number] [facility] - Reason for Exam MEDICAL CENTERName: YANY, - Click Yes and MISAEL LARTICIA : Enter Reason 1945 Sex: Below->NoAnesthe F jesse:->None FINAL REPORT CT of the chest, with contrast Clinical History: Unlisted Reason for Exam Technique: CT of the chest is performed with intravenous contrast administration. This exam was performed according to our departmental dose optimization program which includes automated exposure control, adjustment of the mA and/or kV according to patient's size and/or use of iterative reconstructive technique. Comparison Film: May 26, 2022, April 03, 2022, June 04, 2021 Discussion: Visualized thyroid gland is normal. No supraclavicular, axillary, or hilar adenopathy. There is interval enlargement of a pretracheal lymph node that measures 1.1 cm, previously 0.6 cm. A right lobe paratracheal node has also become enlarged and measures 1.3 cm. Heart is enlarged. There is trace pericardial fluid, as before. Status post interval partial resection of the right upper lobe. Prior postsurgical changes also noted in the right lower lobe, associated with some architectural distortion, and patient is also status post left lower lobectomy. In the right upper lobe, there is a new subpleural 5 mm nodule (image 24). A cluster of nodules in the lingula are nonspecific and probably changed, and measure up to 6 mm. Two 5 to 6 mm groundglass nodule in at the left apex (image 21 and 22) are also stable. No consolidation. No effusion. Central airways are patent, no bronchiectasis or bronchial wall thickening. No acute process is identified in the partially imaged upper abdomen. Stable hypodensity in the lateral left hepatic lobe is likely a cyst. Bony structures demonstrate degenerative changes. No suspicious bony lesion is identified. Impression: Status post partial resection of the right upper lobe. There is a new 5 mm subpleural nodule in the right upper lobe, suggest follow-up in 3-6 months. Interval enlargement of two mediastinal lymph nodes, close follow-up is also suggested. A cluster of nodules in the lingula, as well as two groundglass nodules at the left apex are unchanged. Signed: Luda Wueport Verified Date/Time: 11/10/2022 12:05:43 Reading Location: [address] Consult Reading Room -Creatinine 2022-11-10 11:11:46 Test Item Value Reference Range Interpretation Comme nts POC-Creatinine (test code = 1.0 mg/dL 0.6-1.3 : TESTED AT [place] [address] [place] [address]6) [facility] [address]: Biofuels Processing Technician/Techni kathy ID = [id number] for DERRICK LOPEZ POC-EGFR (test code = 57 mL/min/1.73M2 Inte rpretation of eGFR Values 20450-7) Stage Descripti on Result G1 Normal or high >=90 G2 Mildly decreased 60-89 G3a Mildly to moderately 45-5 9 G3b Moderately to severly 30-4 4 G4 Severely decreased 15-29 G5 Kidney Failure <15Repo rted eGFR is based on the CK D-EPI 2021 equation that d oes not use a race coefficien t Estimated GFR is not as accur ate as Creatinine Clearance in pr edicting glomerular filt ration rate. Estimated GFR i s not applicable for dialysis varghese macias [facility]igsdjogno7057-38-06 11:11:46 Test Item Value Reference Range Interpretation Comments POC-Creatinine 1.0 mg/dL 0.6-1.3 : TESTED AT [facility] [address]200 (test code = [facility] [address]0) [place] [address]: Biofuels Processing Technician/Techni kathy ID = [id number] for DERRICK SIMMONS POC-EGFR (test 57 mL/min/1.73M2 Interpretat ion of eGFR code = 54047-4) Values Stage Description Result G1 Cheryl l or high >=90 G2 Mildly decreased 60-89 G3a Mildl y to moderately 45-5 9 G3b Moderately to s mejia 30-44 G4 Severely dec reased 15-29 G5 Kidney Failu re <15Reported eGF R is based on the CKD-EPI 2021 equation that d oes not use a race coeffici ent Estimated GFR i s not as accurate as Cre atinine Clearance in pr edicting glomerular filt ration rate. Estimated GFR i s not applicable for dialysis patients [facility]inoObdeagydbu5677-03-25 11:11:46 Test Item Value Reference Range Interpretation Comments POC-Creatinine 1.0 mg/dL 0.6-1.3 : TESTED AT [facility] 7200 (test code = [facility] [address]4) [place] [address]: Biofuels Processing Technician/Techni kathy ID = [id number] for DERRICK SIMMONS POC-EGFR (test 57 mL/min/1.73M2 Interpretat ion of eGFR code = 21237-3) Values Stage Description Result G1 Cheryl l or high >=90 G2 Mildly decreased 60-89 G3a Mildl y to moderately 45-5 9 G3b Moderately to s mejia 30-44 G4 Severely dec reased 15-29 G5 Kidney Failu re <15Reported eGF R is based on the CKD-EPI 2021 equation that d oes not use a race coeffici ent Estimated GFR i s not as accurate as Cre atinine Clearance in pr edicting glomerular filt ration rate. Estimated GFR i s not applicable for dialysis patients [facility]-Lejgdzakuz5485-78-24 11:11:46 Test Item Value Reference Range Interpretation Comments POC-Creatinine 1.0 mg/dL 0.6-1.3 : TESTED AT [place] [address] (test code = [facility] [place] [address]) [place] [address]: Biofuels Processing Technician/Techni kathy ID = [id number] for DERRICK SIMMONS POC-EGFR (test 57 mL/min/1.73M2 Interpretat ion of eGFR code = 02136-8) Values Stage Description Result G1 Cheryl l or high >=90 G2 Mildly decreased 60-89 G3a Mildl y to moderately 45-5 9 G3b Moderately to s mejia 30-44 G4 Severely dec reased 15-29 G5 Kidney Failu re <15Reported eGF R is based on the CKD-EPI 2021 equation that d oes not use a race coeffici ent Estimated GFR i s not as accurate as Cre atinine Clearance in pr edicting glomerular filt ration rate. Estimated GFR i s not applicable for dialysis patients [facility]inoCnxfrcphfr7228-23-65 11:11:46 Test Item Value Reference Range Interpretation Comments POC-Creatinine 1.0 mg/dL 0.6-1.3 : TESTED AT [place] [address] (test code = [facility] Amber, [place] [address]5) [place] [address]: Biofuels Processing Technician/Techni kathy ID = [id number] for DERRICK SIMMONS POC-EGFR (test 57 mL/min/1.73M2 Interpretat ion of eGFR code = 72936-9) Values Stage Description Result G1 Cheryl l or high >=90 G2 Mildly decreased 60-89 G3a Mildl y to moderately 45-5 9 G3b Moderately to s mejia 30-44 G4 Severely dec reased 15-29 G5 Kidney Failu re <15Reported eGF R is based on the CKD-EPI 2021 equation that d oes not use a race coeffici ent Estimated GFR i s not as accurate as Cre atinine Clearance in pr edicting glomerular filt ration rate. Estimated GFR i s not applicable for dialysis patients [facility]inoQjecwjzida6770-96-65 11:11:46 Test Item Value Reference Range Interpretation Comments POC-Creatinine 1.0 mg/dL 0.6-1.3 : TESTED AT [place] [address] (test code = [facility] [place] [address]) [place] [address]: Biofuels Processing Technician/Techni kathy ID = [id number] for DERRICK SIMMONS POC-EGFR (test 57 mL/min/1.73M2 Interpretat ion of eGFR code = 42597-2) Values Stage Description Result G1 Cheryl l or high >=90 G2 Mildly decreased 60-89 G3a Mildl y to moderately 45-5 9 G3b Moderately to s mejia 30-44 G4 Severely dec reased 15-29 G5 Kidney Fail ure <15Reported eGF R is based on the CKD-EPI 2021 equation that d oes not use a race coeffici ent Estimated GFR i s not as accurate as Cre atinine Clearance in pr edicting glomerular filt ration rate. Estimated GFR i s not applicable for dialysis patients [facility]inoUbyakwsomv8639-69-22 11:11:46 Test Item Value Reference Range Interpretation Comments POC-Creatinine 1.0 mg/dL 0.6-1.3 : TESTED AT [place] [address] (test code = [facility] [address] [place] [address]: Biofuels Processing Technician/Techni kathy ID = [id number] for DERRICK SIMMONS POC-EGFR (test 57 mL/min/1.73M2 Interpretat ion of eGFR code = 55891-4) Values Stage Description Result G1 Cheryl l or high >=90 G2 Mildly decreased 60-89 G3a Mildl y to moderately 45-5 9 G3b Moderately to s mejia 30-44 G4 Severely dec reased 15-29 G5 Kidney Failu re <15Reported eGF R is based on the CKD-EPI 2021 equation that d oes not use a race coeffici ent Estimated GFR i s not as accurate as Cre atinine Clearance in pr edicting glomerular filt ration rate. Estimated GFR i s not applicable for dialysis patients [facility]inoYiamkdimih5217-02-85 11:11:46 Test Item Value Reference Range Interpretation Comments POC-Creatinine 1.0 mg/dL 0.6-1.3 : TESTED AT [place] [address] (test code = [facility] A, [place] 5646383-4) [place] [address]: Biofuels Processing Technician/Techni kathy ID = [id number] for DERRICK SIMMONS POC-EGFR (test 57 mL/min/1.73M2 Interpretat ion of eGFR code = 62191-7) Values Stage Description Result G1 Cheryl l or high >=90 G2 Mildly decreased 60-89 G3a Mildl y to moderately 45-5 9 G3b Moderately to s mejia 30-44 G4 Severely dec reased 15-29 G5 Kidney Failu re <15Reported eGF R is based on the CKD-EPI 2021 equation that d oes not use a race coeffici ent Estimated GFR i s not as accurate as Cre atinine Clearance in pr edicting glomerular filt ration rate. Estimated GFR i s not applicable for dialysis patients [facility]inoMypvdpdamw6248-61-96 11:11:46 Test Item Value Reference Range Interpretation Comments POC-Creatinine 1.0 mg/dL 0.6-1.3 : TESTED AT [place] [address] (test code = [facility] [address]) [place] [address]: Biofuels Processing Technician/Techni kathy ID = [id number] for DERRICK SIMMONS POC-EGFR (test 57 mL/min/1.73M2 Interpretat ion of eGFR code = 50834-3) Values Stage Description Result G1 Cheryl l or high >=90 G2 Mildly decreased 60-89 G3a Mildl y to moderately 45-5 9 G3b Moderately to s mejia 30-44 G4 Severely dec reased 15-29 G5 Kidney Failure <15Reported eGF R is based on the CKD-EPI 2021 equation that d oes not use a race coeffici ent Estimated GFR i s not as accurate as Cre atinine Clearance in pr edicting glomerular filt ration rate. Estimated GFR i s not applicable for dialysis patients [facility]inoNocncgxwpr2412-13-65 11:11:46 Test Item Value Reference Range Interpretation Comments POC-Creatinine 1.0 mg/dL 0.6-1.3 : TESTED AT [facility] 7200 (test code = [facility] [address]1) [place] [address]: Biofuels Processing Technician/Techni kathy ID = [id number] for DERRICK SIMMONS POC-EGFR (test 57 mL/min/1.73M2 Interpretat ion of eGFR code = 94673-1) Values Stage Description Result G1 Cheryl l or high >=90 G2 Mildly decreased 60-89 G3a Mildl y to moderately 45-5 9 G3b Moderately to s mejia 30-44 G4 Severely dec reased 15-29 G5 Kidney Failu re <15Reported eGF R is based on the CKD-EPI 2021 equation that d oes not use a race coeffici ent Estimated GFR i s not as accurate as Cre atinine Clearance in pr edicting glomerular filt ration rate. Estimated GFR i s not applicable for dialysis patients [facility]-Rhtptjjkzx8094-99-77 11:11:46 Test Item Value Reference Range Interpretation Comments POC-Creatinine 1.0 mg/dL 0.6-1.3 : TESTED AT [place] [address] (test code = [facility] [address]0) [place] [address]: Biofuels Processing Technician/Techni kathy ID = [id number] for DERRICK SIMMONS POC-EGFR (test 57 mL/min/1.73M2 Interpreta tion of eGFR code = 44146-0) Values Stage Description Result G1 Cheryl l or high >=90 G2 Mildly decreased 60-89 G3a Mildl y to moderately 45- 59 G3b Moderately to s mejia 30-44 G4 Severely dec reased 15-29 G5 Kidney Failu re <15Reported eGF R is based on the CKD-EPI 2021 equation that d oes not use a race coeffici ent Estimated GFR i s not as accurate as Cre atinine Clearance in pr edicting glomerular filt ration rate. Estimated GFR i s not applicable for dialysis patients [facility]-UNKOZWLOZC2766-85-49 11:11:46 Test Item Value Reference Range Interpretation Comments POC-CREATININ 1.0 mg/dL 0.6-1.3 : TESTED AT [facility] [address] (BEAKER) [facility] [facility] [place] (test code = 88808: Biofuels Processing Technician /Batt Packer 1859) ID = [id number] for DERRICK LOPEZ POC-EGFR 57 Interpretation of eGFR ([facility]) mL/min/1.73M2 Values Stage D escription (test code = Result G1 Cheryl l or high 1860) >=90 G2 Mildly decreased 60-89 G3a Mildl y to moderately 45-5 9 G3b Moderately to s mejia 30-44 G4 Severely dec reased 15-29 G5 Kidney Failu re <15Reported eGF R is based on the CKD-EPI 202 1 equation that does not u se a race coefficientEsti mated GFR is not as accurate as Creatinine Abbey rosangela in predicting glom erular filtration rate . Estimated GFR is not appl icable for dialysis patien ts Tissue [id number] 08:58:34 Test Item Value Reference Range Interpretation Comments Case Report (test Surgical Pathology code = 104) Report Case: [id number] Authorizing Provider: Ernie Washington MD Collected: 07/15/2022 09:20 AM Ordering Location: [facility] Received: 07/15/2022 11:36 AM PERIOPERATIVE SERVICES Pathologist: Willian Restrepo MD Specimens: A) - Lymph Node, Pulmonary Ligament, Station 9, station 9 B) - Lymph Node, Interlobar, Right, Station 11R, station 11 C) - Lymph Node, Hilar, Right, Station 10R, station 10 D) - Lung, Right Upper Lobe, anterior lobe segment ADDENDUM 2 (test code n7hapPKtKMOgeFQ1UaJdOLIp = 3382) o5tmj0KtgLUqbPLyQIpssYZt qbHlnu10zWN2iJ54PC6cRNSj DjU8LKBohfW0Dgq0CBJbBLSx bYItZ614l5jop7ojzkBrxXM7 rGouXWMllaudHgK3EQdhSSNk rcugTBc4NZnsOFKdaAX7EQUm gPXfY6OpCRDfEB9phtn4HAR9 VVlsWMYaZoP9HMUjaHJdOYEl eXzvTEtfa690AGJ4OvIuDXAv cnFegCctnH2iZcIiJSSGkDen SDTpMVGxBBHrLCtiLRMbyC2p ONoxh9GoDHN1uhAmQNDnzfPn kfKqkSz0hnAlJgMWE6VEWV98 vSF2jT2lKYWjw0IzmmoegENr Nu3jaFUzENO5AZ7en7lufm8v dVDdMWgbZf9iCYGwardewq8q mSOeTYOgvkHVCSYKIVV8RDht YXIgRUdGUiBNVVRBVElPTjog Bn4JJLDMPSDPTJBCLXKsevgt YXIgUGxlYXNlIHNlZSBhdHRh G4yrHWPlJ8CfszEhYMVecB0e zHQeg8SnXoWroInradOgGVOo aWxzLlxwYXJ9 ADDENDUM (test code = j8btpSZjMZGunUU0TwAkQCNf 3381) w4avi5WqkOQbcDUsYAeqaUDd ohZgpn12lUJ2pF58KA7qZNEp XfS6TGSnstI5Qvi3EYTfWKAk gIHzS820q3kly6ueznLcbLH9 pEopGLBuiuxfXqG0HXubKXBn chqdLHo3KIkcNWPmhKP1DEPo jOUcI5HfITQjNI6glfh6WUX2 DQanWSTsWiW6BNOzkVCvPWKt pNqwIXghl352KHK7GgSaKVYq koUgqBypyG1hOoJvRGWMtOmy HAKwCTFaSELqAHjaQPWihL5l CIihk1XwIZT6dkPrFZArjwDo lXztEFGov7MebMLlp0LnESPL GKPgfK6phM9qg8LcyC7ljKYm Uu8ceDFwJJK7IV7bg5kjpm6d xGBiDPfrJl1cAJIsyvtxda9n cGFyXHBhciBQREwtMSAoMjJD GqHdrM8vMId6BLVUFILPN2EQ XSPliJIsNEDHVlIAO59EHCmx OTAlXHBhciBJTlRFTlNJVFk6 IDIrXHBhclxwYXIgUGxlYXNl FQTuFzCjLQSwMXG3fQMldWJc NMIgMN5yFPKazcYnr4R7PVOc ojMslOA8uSVhVYYcg6NeeTMe IFxwYXJ9 DIAGNOSIS (test code h1wjzZAzFADgm7umEOJrlFNb = 3220) ZzEwMzNcZnRuYmpcdWMxIHtc cnRmMVxlcGljOTYwMlxhbnNp LKBrvIQjF0CtrxgeGDpyMK0e RK8odKcsrYLntGJwIZTdEbUg g9ngu471nGIkc5hgAXSBrusa mJn5dPjwV44pa3L7XcmpR0dk MRG8GWhqheTywzChZWRbkIL2 KPysejOzPBQeB5MuLR8nHWgw yVJyZZZ2mDacEPCbnwsbWrU8 IVitBGMbjsqvNSo0LKytQZLe bUC3LDVifVXsI4PhBZZuYM8s tqw8LJS6URfwMWPyUeN5AVAz vIQcQOYwxNugROtfw196NDB2 LnDkMMWazeAbxNyuaO7aVpEx MFmdOvAlWG2qMStNOEvmTx9P AMmnSLSIRV6WFXTHEHfLQ7NZ OF7VYFPLMVYCHT7JBOszTNZI Z2nHIE9YQjkqJLFeF6YeOKOn ICBPTkUgQkVOSUdOIExZTVBI ZD3RSQCtVMTyZAwgqWMaAJVe gqXxcMGeMEBtFWNAJfBSQE4W NQQZR4YWLKRDPnVTLnzEJbEH VGKDYMNJQF1RQOIcHqmxHDgA QHAJL850QWMvmvfgIvXiYV5o XD6MVODPFE4YS64gNKpNQRqy Dc6NUOOnYK0qNYcbSZXnfYKq XLpxHcGcfFOcOBKhZAWDZX2J IAYXW1XSKVUKCPtUFpkcO6VO NGyZSxEkEAPmEKVEI7tAYB9R HadiCHQsQ4MfFLMvQIDRUfRp SqEURKtZXLlUVVQVYD3DDBGl DHDpXYuozVGfJLPjmfYxM3Nh NMPidoUQGlVNEO0AFCABGPsN TNRNISYNWaZLZ3ZVCHFKMqBG CbuGOrKMN3RVVIWLV90ZLlEa QFJFP23NWxDZV3OEGYa4WNLr luytLfAimc5kCA2VZuHKV0dN YMAHDDOYC1ZSPyALQy3AOHbv LZ8LCznBSZWGMbAVSnXAZPrA VEVEXHBhclx+JHUobjdKE0GG PBWBOO1WD6wXXpXFOPYTGeTO S1uIYPTzCEOrKEwmNZJHMxVD ICgyMCUpXHBhclx+LSBcflRV MD8QMQ0FTUVRYbESSFUfHKEE QKZJYkTUJxAMQCJEFPLZMZ7N DgXEU16evZLuHH8fWUu+Tk8g CnaQE6WVVYxuTWeREXYVUHKH TzKQE3lIUxHUEyLWHGJGHQsZ SUVEXHBhclx+IIZgay4DXGfQ UFQQY0NDF6BKRUHBRMrHUtEQ KV0IOJiZUIiGTW6ZHJJDWAMj iNWfGJ2nJZq+SDAXRC8HLNkE CDsqDfOPLXWTCQ1RKO0DXkjB MdooCxYOAJWDCuBdDf6BHE9T YMyUFsFAX8mcVCPdAWBKYJOK P1FVDXleUOFzHU9lEBRIXIBY XTenJMWUWUJVO13IXAWdmoPq ZCTiNAZHMTbQRGlhWBOOLw2V QVRPVVMgSFlQRVJQTEFTSUEg JR8zVHdATMSEK6cQDi6SFiNl dTGqMO6bJEn+SPASGN0ZF6hJ AqXCVTRYOL8TAqEzCNHnVwGB sLXbZKfZMrR5uLmmSSZtHNym AJF0x3cuqCFwCXWvmQAuWXRx MFxhbnNpXGRlZmxhbmcxMDMz VLS0edZvHIGdUHsqSLIpXLcz Za5xgZOycIsrXsMeKDCgk0kk kyFDnpyfsUs3d2bgNFIrCwW8 sNXpPWonV9dopjIfgNMcWHJb SRe7vH31AULsxC0tsGXnPVfz plFtZcD3NGvjHDQeBpH7QISm cRIhCZJbC7eeWLMaEUjcQLGk KZnauLEcMPH4gJsmo3F0jVPm dSLxaKjsCnAzDiAiBiQWx8Hk ZFy1qDogC2JtMXBsOhW3cIUg LBVtJDrkWVXdJYChtzL8kJ35 EOhrowF5rUJhc4Yqd51po940 uF5hoWXeTIO5DBWfDWXbtKZy DGYmWJV7ZVPyjNKuU2wqHBWb SC5mvkukRBeaDBrlTIHxsQW9 QARdwOPbG8VxXKItZOtsAXGb sni9PbEfBz9yeZNejGlsZIre y3ogq0wshSZcOtd2GOQhGaMo UimvULdwy8Jlr2hfMGYvyd3q GQO4sPJxsZexm4D4xYPrWIIi cEQtXIUyIY4aaNZrYFApvT5o cmxjXHBnYnJkcmhlYWRccGdi meWxCf7wwQynITR9KFvxX7ls vF8tWpU4UOqdY8hnyY0vKUl8 KMucXKFvmKA3obX6REDseYQa W0JsaU1iIZAnBR4amgz1h8us FIF5SNplDQGuThC7jxR1YATy rHOxJFEtrSkaXVkzv800HMM1 UcQaZKYyl3OjV8KzcAomP77g qHxxQ81fPSOqiYywyR2clUam mE1cXvXrQkAcWPdgnWfhAL5u UPFjE9edqUHlJMJxPSTmC5ui EdXvtC4cmNdfEUpgwzBgXAYw Gja4SVGvrBAbVUEeQzk1DFMv WVLuO85pwverXMO1dU2bz7zd e8VmYUfgWLX4GKOle27uBPxx ajQ9YOkqTt5oVsOwAGQ6FHqr YXJ9fQ== COMMENT (test code = o9claWOfAJIweBH3YgMdPZWg 3359) s6tie9TkvKWbvCSpGUcygCMj joJkga05wXI9fR91EY5wSDYp HjM8UUTzhbK9Jup6TZVvAOGy bLNnJ427z4vtw7fxnqEbeWZ8 qWmhYPCgxifrOnH6LIxpHTBg bnjnCXf2EFkqNILmnEL4CVZp tJCsB6SwKHDkUC8vpdc2BEM0 LRaaJVHzTgT1FTNixLNqDPKi tEkqHCirn437BMV0UwCiIZKx hoKitGzxiM5vBfNfDUHKsU6v FYLcBZPzk9H6JLm7JESxtcVA bC7apredSZHkjBUxJG4pfc7r yQnhHFD3EIHwfurhDPBnYQWk b8Kpr6qwgLXkORHcBO39ALQw QV3oy6wzwy6lqAZoFGQsgjWq rY4tVYVrQZCadNOyvBfgGs4h GlZdiOu5smW1iJmuZNBmFWDy lB3acFTkYBpyNWEiJZQbQTWj ZHVtLiBccGFyfQ== SYNOPTIC REPORT (test LUNGLUNG: RESECTION - code = 5765) All Ruvjfucon5wg Edition - Protocol posted: 04/09/2022 SPECIMEN Procedure: Segmentectomy Specimen Laterality: Right TUMOR Tumor Focality: Single focus Tumor Site: Upper lobe of lung Tumor Size: Total Tumor Size (size of entire tumor): Greatest Dimension (Centimeters): 1 cm Additional Dimension (Centimeters): 1 cm Additional Dimension (Centimeters): 1 cm Histologic Type: Invasive solid adenocarcinoma Histologic Patterns Present: Acinar: 20 Histologic Patterns Present: Solid: 80 Histologic Grade: G3, poorly differentiated Visceral Pleura Invasion: Not identified Direct Invasion of Adjacent Structures: Not identified Treatment Effect: No known presurgical therapy Lymphovascular Invasion: Not identified MARGINS Margin Status for Invasive Carcinoma: All margins negative for invasive carcinoma Closest Margin(s) to Invasive Carcinoma: Parenchymal Distance from Invasive Carcinoma to Closest Margin: 2.8 cm Margin Status for Non-Invasive Tumor: Not applicable REGIONAL LYMPH NODES Lymph Node(s) from Prior Procedures: No known prior lymph node sampling performed Regional Lymph Node Status: : All regional lymph nodes negative for tumor Number of Lymph Nodes Examined: 3 Dusty Site(s) Examined: 9R: Pulmonary ligament Dusty Site(s) Examined: 10R: Hilar Dusty Site(s) Examined: 11R: Interlobar DISTANT METASTASIS PATHOLOGIC STAGE CLASSIFICATION (pTNM, AJCC 8th Edition) The suffix m (or a specific number) should only be used in the setting of multifocal ground-glass / lepidic nodules that histologically present as adenocarcinomas with prominent lepidic component or multifocal tumors of same histologic type that are too numerous for individual separate synoptic report and that are not better classified as intrapulmonary metastases (e.g. numerous carcinoid tumors). Multiple primary lung cancers showing different histologic type or different morphology based on comprehensive histologic subtyping are better staged as independent tumors without m suffix. pT Category: pT1a pN Category: pN0 ADDITIONAL FINDINGS Additional Findings: Atypical adenomatous hyperplasia CPT Code(s) (test i0tcpQKoLUDxcRP1DrFkQNGq code = 3357) q1umr9NlgHVyqWAtBYxjnRLh kzHscp18mZQ1oZ01OX4eADVl LhH3IHOrmzV3Xyp2OKLdGQNd qJCrY614h9crs8icxfYzwSB5 mCjbCMVsauhcEwI6WBnzUXPi dvizDRg2LDbzIKSvjFY7YCYb vBCrN6KzCHUrVR2evns9BEG8 JNouOPViIwH0GFFrnPSeLHAq dPqnSSsuy365TKV7OyRrYSYt rxPslNqwaM8aMpReDTN7BFTl RLxqVZZeFQobLLMTD7wlLZD7 CLINICAL HISTORY r7iqqNVnFAKttMX0UlExFAHj (test code = 3356) z9juf2ZoiZJnqOStKSkhrJUa whGkmk40bIR3vB08XA4qTGUp TqN7OGZgqeI0Apy5GVIpTAWs gWBfC002q6hms1kppdFqoZL9 oEnbJFOdtmwwOoI5NFjvJTPt hmcjTVu7JOrbRGXkpNM2EJGk pZGcA0PkMIGrYT9dyzz2PDE6 TQzfLUDyVqF7RHCmpHVsIXPs yLlhVLivz565OCD2BjZfBERe bnIviXhpxA9fHcTkXPUOEPFn i3FfvbBvqs6xTWQfxQxllQQb xN5mGOFeey7= GROSS DESCRIPTION e5dgyQMtTZWlaYC7KmQwDEBo (test code = c1sfk7JzvTUshCAbYTqdzGVh [id number]) lrSweb41eTE5fX04FA6uSYZg TlU4QZXdzcS3Lqr9UXJaOJXu nFQeF483g8wmr6qneqCugVO5 YXBnGMRrR1RsJX5kWNHheXQh H79vbSWxPKE4JNHbEFNpgYAh CIStUMD2LCMxkBFwK4llBLJx IZ1crfqiIQtxVEuiATUjdIU3 HPJkjUIaS3ZgRRRkDLxvHIDe sln3XkVnLl8udIWrjClqZGhx JNNwt8mjZEWkpJYjDJO7ESvu tKPnLDUpTKTdWSr5BUIcFHdt oFZtIW9rsVbgYlakhHjxp2Lp dCBcXGlkIDUxMDAyIFxcZGIg Y2SNJXWdKFCkJRIfBPIbSWv9 PMawH9ZRGFZjPVAyDfs2Ilq9 XjX5LPf6ERVYFp6mPiT4ETi5 TbL6FOB4ZYZdINndrCZfTQkp ZmwgXFxmIEFyaWFsIFxcbmN9 STVeAPqrDGNsMxOzIV9cUNxq vKxhZd1gQVolLGTpjB5pZUC4 WImxN6SlPU65SHJGsKO1pD2q XSwoIQGvakyowaCoUNIwO6Ju dmVkIGZyZXNoIGxhYmVsZWQg d6r2nOL8jEFbqCM9xVXpvIoi PiKgPE1vxEJeSQ6eJYndFHce mvLdt9PoWL64zOAjjqRbgySt XxR5WFNzg68lXJFpuVWuQXFl UaHgP48xQW25qWGpN340vKHf hYvkoIvrsj5yHDBmpNJnkKN1 UPNvmV5siN35thFfwpXMOS90 UDVgcDOqFXE1TY4gNUIfmqkb HURkNCCsLTF9SEyzzD06eWFq XGZzMTZccGFyfXtcKlxlcGlj v4DfwPUjBBlvRHPlXYRiCYdz DDSeO0EIALEuNEAwONZuIBYe LZj7NIfaO4VOQODmJTNuBgn0 VLO9IoL1SGb6TQRZUy9iRmU4 YLy7LyP1MUH2ZASfVVcoxMXg IFxcZmwgXFxmIEFyaWFsIFxc rbJ3AKEbPsHsLa9hJEfabAno Au7vNQklYG64COVfh9Ddsask AprvwHEhARP5KLSqy96oVITE LlxwYXJcZnMyMCBSZWNlaXZl ZCBmcmVzaCBsYWJlbGVkIHdp nOmoiTcqDTYbgAueevGaL6R2 chLwBW7jMOJfYUEeP1OjPHJe S41kRYOfhV8iARFrWV3sPTYt fMP1xT7eRUEyLpOnjvJqTKKb LHCcdXTqjdTdctVlh1UtItIn iT5onXKsw1HiEJT7Et1xyFGq OBZnjpJ5c2OkULmvVNCtCqfj APBtT3ZqD1FpnzHvrUTlVYQw snVhj7xxSRO6JCXahEErxXOm CnRvPkdoYIT0d1znNGVaaPGg NSW6PRagmWBfAUIpLUJtSQlf OpSYRwNeSpZ7IRD2SIN5QfZ0 KHy8RZPMTuOhQoYiLfLqZmIr QkAkROz1OGi0LHlJBfX8VDi7 NTPoYRTaFIScRUUzZFu0JOKc XFxmbCBcXGYgQXJpYWwgXFxu G66xUiSaSAIGChNLrV1qiHOS d9ZmHEKQzXjikvagViekkLYd YCY7MKXzz49wZXUXYrlkNXQx ZnMyMCBSZWNlaXZlZCBmcmVz aCBsYWJlbGVkIHdpdGggdGhl TQSowRbbssUiC1P7ccKlLU1m HSScOGFlW5WdKIBrP60sHBDr dL4uBZCiKO9pXBDwfDB6bX8r IDEwIiBpcyBhIDAuNCBjbSBh kdCjrwYnj7DgDaFouM7cyBQg v3NdPLNeENazJE74XWYeiN11 qzKtaSVuIQClm5VloYx2mOFs SXwnWBClcE5gcG1pOkVhv6jz mKkdl6LkwHXzFYgyXASoaDNs RUfgnL1aYxFzu9lusNh4XEgs nlP7ZWLvyj62ULsiQXOxY8Ho Y2SaFMtlKHZ1CAJcXjYkDLAx HR1GKmAbJVTqClLbQBPjENq2 ZGj7MI7JQyGsOGBcTHF4PBk7 JOGuEOy0WGfgXB3EJWGzFiv5 NvefPXB8OSL9DhMjJXNqOiJi XEXeSUqnMzRHxbisdYAiBO5k xMntpyLqUVHxQXt6bzsaAVVm J7i1IIDgjAWaLMgiZnDnDADb clxmczIwXGNmMSBSZWNlaXZl ZCBmcmVzaCBsYWJlbGVkIHdp dGggdGhlIHBhdGllbnQncyBu TH4sBPKSGp0tOD6pKBn3mtww QJFuY6b2XXZppICjPUwzZvCj IGlzIGEgNTcgZywgMTUuNSB4 CMFrLWX9IGUkPWUyxGHljW6e WZQdV10kiuLrW6AwpEimTUQf cGFyXHBhciBUaGUgcGxldXJh LRFhq7KrXQvcNFFbETTuJHIf i8NiEAYeHYOad65zAJQfHUIy VZmaQXYnUJLfUU5yEOTyPdDx l6vcPCBlaoTqEL7aBSHmZFLp HsZnj61lCJO9pG3bUUK0UD3c SBGgmiArz9SnfVrtDADuWZOp bWVuLiAgVGhlIHJlbWFpbmlu PjBpjGI6xeHoOSY1xnDlN0Tg jGZymrPiHD4yjh3muwEozeUs d01dc5UyDac+VAUzLFAfvS7y EZetDUXtonfrfGn7HOMuY7Ki h93lOFR5eoKgKPXgXDhzTEBq SsOsjCNcVzTouIRzIpTgM35s aWxsLWRlZmluZWQsIGdyYXkt mKQaUWTuiXZmFX1ng5Woa2Jq ohWxQX64GZGmAHZfEJEjkXF1 bkKkmChmxTPdwoIwGhplP35g NtLrcPE9dVVdyAJwYF0hoKee QHzpoVLjN0vrPpNgOF0cDYWd DBWfNvWgZ91dEsOjpOI1iXAr bBFwgcDqllYtCSKwOqI3FEOo IEZ8VWElHGEknEYnuQsxLGRk nK1lJVsctGNxeS40ZSAtaa0t ds5arQcvVUGcGDAjiTGjOZ9m HCKvTFJob59lmDdsUJWxuuPp F0x5aEEjNB2hvdkxtoZlfzHh EW61GMBdUKGgp63hvWxvZFTs ZXVyYVxwYXJcflxwYXIgVGhl IHJlbWFpbmluZyBwYXJlbmNo vQ3hDPbrKXHzXEInevDyi8Yl nor4EBOfjINtv9TnxOB6jAAv RSIhS0Pss77fZTjwUILkUXSx rOhgBCa1XRHddjUas9AmqTj1 cWPePiQfU3Kmo4CdhFdgiV2j mrHabRHaTKOiSCEfv8PdCvrq PZBvsBAcCTgndvZwu6LeTtgj cZ9eYOVubXW2MOHoGYEoFOja VMZlzTVzGWLiJ8Gzy69qL77s PNmnyuxlXSEgBHIwCCC1ULBj dGlyZSBtYXNzIHRvIHBsZXVy KFaeNKRjTHUgINY3NVNycMYk h3ZnsGZ9mINnHT9dGFXtVGFh KQFsKsZbhGW6mqMpLNMhDDPx o74ccOhtECRHVkwsFoPryzMc UI37ZMDjeoImm7Ctz1Chh90n KICxYWUdy3KfvJxcqPVxjCDu IHnof9klxyEslZOxMYG1ZxMv GKFtMNOsz4GpGpstfb5rmOLs sTqwXBSKERukX2Nte99iPOAr YMAdh4CgtXppzVUlyWXygTQj o1Svl3qlHWRdYVklGqPeBrCf P89hxPWnwX93QX8gOFFwHTdt KPDgI6QeWJQlAOL4QGQrw4Ph e0FebTKpFJ4brQluOJuovRPl U0rjPXTfQK5gx2GlDICxVTSv V0IeyHtdHZUOGHN5QXUhs5Jf n1MejUNmBD5qgVjuYEynkQKg K8jqHCGuOZ4xANDnSUlgTD4x ZmFjZVxwYXIgRDEyOiBBcmVh ED7fRAFhMRKcOZtxC31xD7Yz dGlvblxwYXIgRDEzLUQgMTQg WsK2jrbfhr3xmwAoUOTnulCq W9k0yTTjhDGcTTWbjlDCoFZv s1JmIFvpREIgXVQEOCOhXTUR AKgOV1RJCCBge7zxiFryt3Kq fSSlPY58ZSRemELlUFG7NZ4j fVxwYXJ9 MICROSCOPIC n8mnjXDsPKRegTT1DnYdRBFg DESCRIPTION (test r8lcb5JqwCOsiFNwNFgliAHb code = 3371) yyCjvn42vGI8uY34AT1tRGQd YxZ6FYBjhyG5Awn8XPHmHRDh fKHeB502j8hif1ogunCjhJG3 qAzoYGWjvzofWxW3GOefOZHh jngwBKl4YKkcBSZghDM5WXAd oFJhX6JfTXQjXY5shoo1SQN9 JPvyZVWvHfA0HULlpUPaCRWf yEmqPVoup155EGR6UmQpTLNp ibKmxCdsbV5iBsFzCGIBSQBh y9UlERAmUVOhbbpxMDAqYHWr cn0= [facility] [id number] 08:58:34 Test Item Value Reference Range Interpretation Comments Case Report (test Surgical Pathology code = 104) Report Case: [id number] Authorizing Provider: Ernie Washington MD Collected: 07/15/2022 09:20 AM Ordering Location: [facility] Received: 07/15/2022 11:36 AM PERIOPERATIVE SERVICES Pathologist: Willian Restrepo MD Specimens: A) - Lymph Node, Pulmonary Ligament, Station 9, station 9 B) - Lymph Node, Interlobar, Right, Station 11R, station 11 C) - Lymph Node, Hilar, Right, Station 10R, station 10 D) - Lung, Right Upper Lobe, anterior lobe segment ADDENDUM 2 (test code d8hiyXPjUBWpsFE2RnVnHJNn = 3382) q7ind2ZbvXCisQXsMKcniKNn zbOhxu27xYJ2nG54ZC0vHBFv KwW4DVEtarU1Cbg7JKEzYYHj cULiP097p3hve7nqniFjkNB1 fEleKWShnbtgRhC1MEsgTRGt gamnUVl8MVdvHNAezXY1AXQf lKQaM1VjTQYkHB3ylmc2QWM1 VPxbAIFnJgN6CXCwlZHwORDa qQvhVVwhu105GFU5PzTnQXJz rrWlcQeceN9bXzOwUHLLdQgf WMCpLZIgBIPpNPfgLAXamO1h MWxes5KcOXT4nhXbKNSpehWp edQhkMj5dvJnZqMGA9OZEA37 kWJ9vE3xDLLoe6ArhfbpnUIs Tt6uxGUoOPF5UP9eq3vghg7w jPKxFMceSf2mNPWyfytbfs4k jCSzTNEfzhXECQNQBBE5GGcs YXIgRUdGUiBNVVRBVElPTjog Qh8PAGHSZNTTFTNONTMexmye YXIgUGxlYXNlIHNlZSBhdHRh T7rfIGVhA5DvdkWtASPrjA1s pKKjz7AgYgTbaXlorbInLPYm aWxzLlxwYXJ9 ADDENDUM (test code = t0fhxHIhRTNfcUH8FbVpLVCr 3381) o7buw4PmjSXbvLXlBXhvdTUh gdGtva70dLW4pG82FM8eTKVh KrO4PYDphlW5Kyb4OLUmAGWs vSInT168j6eii4gfavQccMW9 xYwgQCQpjknoLsO0UBuySGFq cyjkESk7SLtcLDBanPN3HFKq jLIhO7FxTTOyNG1mmtk1WHV0 MQovBBOiHmU7MHLapYTcXUEe zHhoVDskc266EBC6QiZsZIMo fxBpjDzddO1zRzSmCPHSuOnf XYAhAKVwTPCcUZsmYHSceA7y JOcyk1DcBJH3flOuYROelaYg xUpbVGXsn5SthHAiw2WvLZIO CLRcbH2ibH5mv3XyiI4dmKAy Cl9wwVNdJYK1OM6xm4euie6v rQHtXJwbCw2vILUpelbige8j cGFyXHBhciBQREwtMSAoMjJD JkYtfW8oDRo7NVTCUBLRI9FQ AGStxEFlYWNOVoAVW83HKQrl OTAlXHBhciBJTlRFTlNJVFk6 IDIrXHBhclxwYXIgUGxlYXNl ODDpZcOnVVAdUYD3bYKcsNPv WUGhBW4uWNHyjlFuv3U6CMYq jeMxtLP4kGNpYVIag2ArdLTv IFxwYXJ9 DIAGNOSIS (test code g3umhVJbTSAfz4zdKPSenZDe = 3220) ZzEwMzNcZnRuYmpcdWMxIHtc cnRmMVxlcGljOTYwMlxhbnNp HEEixAFiO4RnqiumCGdlYL5w EG7niEtjfQPydCNvEBEiOiIj k9mxo995sXNbu5pdVHIKkcbt bDs7vGzvE61qr4V7NqydR1jq WVQ0MPvxqtTqafSaKAKazDR9 IGrtepTzRRUzB1AvYN8lCKyc tHShGLD4jDhdZDZmrwvkAyK1 YOdxVNDoqvjnJLw1FKtoUIIk lTT8TWTkiUIgR2KnTWThSP6a oge3GEQ3DNqmGWFzGfN2ZDPn lSOsTEYreCahBTgna897SCU2 JrAmJCZexiQlfYlrxG5nWvRh MUquRtHrKH4cWNdGJVnpYi9I PNirZYUISY9YWWHGMZwZG4JU UF6BQPREYAHZPH7USMgkHNZO W1lILX9DGqpdBBAoN0AmKXAg ICBPTkUgQkVOSUdOIExZTVBI YO9LCNXoEKXjBLnrvOOeABEm ouYriFOjCVYyRFNETmXEOA2C FIFOA7DPORMEZpYIXflYOoNF GCOVHPKBEX7JNFRrXtyxZMrH DDSHY815TSMvmskxTaZdZS1x VX3HFPBJMP3PG76bBNaROKvc Lq1FIVGhAM0sSUdnXFWdgRAk HQvgLzEtgBBaXZNfTJSZYR0G LQKEU5VHROJTNGfADsleA2HF LXpPUgXzWBFvCWPXJ3zYFM7M XrqdSQJmL3RrITBzNPHKDgZx OuJTEWmDSYhUCQUGXX1VWQIy TDNiIAfvcUUhQYHfvoPnR9Bd VLTsbmEAAsVZFT8GWBYTIAeG TWIXHGHYFgDEK6EYMVWXFqJH QhhZSsWBJ3HEALPUB98NQdBe GQSLR15RFaLHU1AXJMr5QELy plceMwPouw8zUG4HRaDKZ1dF GEVANXAJN5MJTfYHKs6HJEmf ED1BHbeDELEPPoKTAjIEEHtL VEVEXHBhclx+QSRqcaoCX2EP TDZCOR5UC7mKGhTRSXPPIhHQ Q5zCDRYuPSOoOFbaZCHRLaQS ICgyMCUpXHBhclx+LSBcflRV DA3QAT8QQILXSeRWMIHbMJIB KCDOXlKZXaWXFGCCOVKUOY8R JrSJQ70icGXrTA4aTOx+Tk8g CjiFS7LZXObjFJjNNECNKHVN GpZWY3nGOnZYCpMQINUTRZwS SUVEXHBhclx+TEHjvl6CKJxT DVSHS1MBI8PXIHIIBBuTIjPB FF4PHDeGVBrJTM9XIVEWXVCy pULkLP6jTIn+DWBJDW4MJRzQ RSkcWbCDHNYMFF2JYW9NIsvL EafgCcVWROZPAmSqTa6WZN2X SIbKVbWJA1yfIUBoPMNNRIAA M3WDGGcsGSJwHF5gIZWXJFEC CKcqUSLISSOAS18DPOXwquMf IVGeNGCPZLyRFIiiETPQFv9M QVRPVVMgSFlQRVJQTEFTSUEg WP8aPXxPFXHWQ7iOEc9NElUu sKCrTB6tZWw+SFWJVS2NH9eE AtMUPRBQBE8PYuLeSPRnViYQ mBPkLHjSGpT1zWaaTECeRWnd RMS5x1kumAFeHAQygIDuTQNa MFxhbnNpXGRlZmxhbmcxMDMz KPM5lcHyHLYgGOyzWXMkXNat Xo1ypSZrpWthVwMwQWAzo9de drOJmlkuzKy2i0lsCXYmRuV1 dYLoWXrkE3sfyjAtnYIqFMNj JBj5lQ23VVXnoY3utYAkKXll drLhTuI4TFujVBDkNjI6EPSa gPVsMGRnI4xhVBRvKEvgBPPw GPoxbNSkSZK4iMydw1A0aWHr sJPmcPccBpOfQzQvBjGXw0Yj CTg3hQgqR5VnHTRxIhW2fVPl ZVMcXHxvGHQrMXJbuvR2wM68 NXezcaG1mUBau8Uea34nl574 nP3asIXiIKP0SUTkGOAymLPh YFOmZKA7GYIgnRDmJ9kfFDMz AS2iakahIZqkJTziFNLwaXK6 DYZacTLmM7ZjZMHiPEigUQVr srs2RtRtCr6ebNCnpXyaPBik w1gjm0fijASpMse0PDLrAbQz EeilZQelq7Gyp4nnJYEbqm5r UOP2mLXtrXkny1S0yDRiNFDt qIEmDPFtSJ9icVWnDIOipT3d cmxjXHBnYnJkcmhlYWRccGdi fyHgUw3hcCyzOVB8UBqcD8bq oO8qQmL1XBqiY2aejH1hDMv2 EPnvIPCtuEC2ofK6EJJpzPCr A6NauQ0yKIJcPN3wexu5t1iv QPR6UQhsVKRaMeM4ntZ2FZEr vISjWQPijKlfTWhtf545CAE7 CcDvNUZae6KiR3UfbMuwH08g qNasB58qLDGspVbklN3dsOxv hP4qEhMjWzSyHKqbuHndZQ0i EJCiU6lbvNJyNEBfYIYgR4xg DuHzaY4jnCwwEFapnaEmGYAa Pdk2HAGjrAUjXAJcTft6MJJy ANBwN31ckiozGHA2yC3xh3hi u0MpVLkdZPH4GANox19jJPhi qhA9MVvkUq2iOtGhQFK0RFsh YXJ9fQ== COMMENT (test code = t6dcvZYaEFUkmHG6LwOoCQPr 3359) l9hbz4OyzASyhLKbMNowhPZb teVpow91rKK6oR72QG8nBUGo MjR4DYDnzwZ2Fdp2HNBgFFIq kQRvS368m0pth4rmbkFnsZD6 uHusFYNrmvajYnI2OVkxJHZw kbjkBGa2QLrxUQXwkCH4OJQz qXZnX0TyUWYeNR8berf1ZYG2 YCcdFPOnIdX2NGEgbAWjXMMl mWonUUxap287MBG2SwRfUZSe keIldCkbfJ8oWqWtPATKmZ0p DAFpIAQva3M3EWd8PONdtrEY vO5lllnwROUarXVcPO9swd0c lXsnGMM1DZFwrzxaQUVeDALu s1Ouu6xqsMDsAEJpUJ84HFQx OF0yw6hwmp0kaQEfRVTzilFl fN5cXUFkZOAjfJUedSbeRu0x SgJdrIv5uvB3nNouAGShSHOa cJ2qxULcWZvcNKMyPFIaNNEn ZHVtLiBccGFyfQ== SYNOPTIC REPORT (test LUNGLUNG: RESECTION - code = 5765) All [employer] Edition - Protocol posted: 04/09/2022 SPECIMEN Procedure: Segmentectomy Specimen Laterality: Right TUMOR Tumor Focality: Single focus Tumor Site: Upper lobe of lung Tumor Size: Total Tumor Size (size of entire tumor): Greatest Dimension (Centimeters): 1 cm Additional Dimension (Centimeters): 1 cm Additional Dimension (Centimeters): 1 cm Histologic Type: Invasive solid adenocarcinoma Histologic Patterns Present: Acinar: 20 Histologic Patterns Present: Solid: 80 Histologic Grade: G3, poorly differentiated Visceral Pleura Invasion: Not identified Direct Invasion of Adjacent Structures: Not identified Treatment Effect: No known presurgical therapy Lymphovascular Invasion: Not identified MARGINS Margin Status for Invasive Carcinoma: All margins negative for invasive carcinoma Closest Margin(s) to Invasive Carcinoma: Parenchymal Distance from Invasive Carcinoma to Closest Margin: 2.8 cm Margin Status for Non-Invasive Tumor: Not applicable REGIONAL LYMPH NODES Lymph Node(s) from Prior Procedures: No known prior lymph node sampling performed Regional Lymph Node Status: : All regional lymph nodes negative for tumor Number of Lymph Nodes Examined: 3 Dusty Site(s) Examined: 9R: Pulmonary ligament Dusty Site(s) Examined: 10R: Hilar Dusty Site(s) Examined: 11R: Interlobar DISTANT METASTASIS PATHOLOGIC STAGE CLASSIFICATION (pTNM, AJCC 8th Edition) The suffix m (or a specific number) should only be used in the setting of multifocal ground-glass / lepidic nodules that histologically present as adenocarcinomas with prominent lepidic component or multifocal tumors of same histologic type that are too numerous for individual separate synoptic report and that are not better classified as intrapulmonary metastases (e.g. numerous carcinoid tumors). Multiple primary lung cancers showing different histologic type or different morphology based on comprehensive histologic subtyping are better staged as independent tumors without m suffix. pT Category: pT1a pN Category: pN0 ADDITIONAL FINDINGS Additional Findings: Atypical adenomatous hyperplasia CPT Code(s) (test u2gzpHLgWCHyfBV3MaEnOTKg code = 3357) a5pxd9BtkIQdpPFuWQbvzWKs bcVkjb68zIY7kT15IX3fDZSz SrL0ATLqnjA3Uax8AMLrMRQy jPXyX395h7faj6retaZezEX2 gWxwEGReztduJaT3PHfjRVCi dinrQMb8FCoiRNIyuII8BSZb nLPqN1GaYBInAT7fyso2UEI5 OBquYAQlJgM4WRRwpFDaQOTe bZtfVTsba281DKV1MxOkPRGi tyDatUmhzS3iPiTvJAZ2EOSd WThaMRDcOAwsWCJHY4ivAJZ0 CLINICAL HISTORY m6wlgMPpIJOcnFN6JwUbYWZn (test code = 3356) j6pij3ZveUCvfXVyVVjggIIh luJyko56lOE3tA76NJ1xRUIr XiF2NBOtlfZ7Wne3GCTkTDGo pLOoI423o4evk4tzrjCfdZO7 qJblWJTqvexeDqX8KKdeOUDt jdgvOBn9MTthJWUjiPI0RCJj eKAvR2OdUJOfSH1nbkt1AFD5 BEaoCEPjYlC8SJRgiQHtQWAz hTrhGTlsf342KJG8EjOkKVEs lsQpuRkiuV6gUsBbQWPJDMAi q4ZcwdZcgd3aRIVloBmtjQFi lQ3yLIXpwo4= GROSS DESCRIPTION z2odkEHuIEVddGK5WpHeCTQf (test code = v9lqz9AtjXOjoAPkPCdvnXIg [id number]) vcMdda94bRA5nM66VL6vIJKc WmW5RUZeakR9Prc6SELxODPp dCVoI402z1aef9phzdYxxAE0 DEWmNQHwN8FdXS8cWYBfqLTe U37djEHrGXE1WRKjICNvnJGi VEEuESR7ODTjbLGoE4svSNNa OO8wysbxINltYFirCISogWI0 RYOxaJOwZ0HbIAFkDXguDQXd qkn4MaUsFa7dyZKkcQtcNQxv LLXzy1onHOGagKXrTFC7VKog gDDlHXNmASJxUEz0PTDbONtx yLTrQL5xuZyiVjidvEoye6Af dCBcXGlkIDUxMDAyIFxcZGIg E9WBHUFaDYWiYXFrQPLqVQi5 NCiwF1GRYICaPRCnTbj4Ont5 LdK9VTj8JMTPOg9lZmM1MMx5 QyQ4FEH3FJZiWOnksBFoQFja ZmwgXFxmIEFyaWFsIFxcbmN9 PMSkZSmhUPGxVbExXF4gXZzn kIgxGf5rRSunOWJtyC2tOES8 QTotO3RqIS79YKXDrIQ9pS7o WBcbUZWlhrkcjySuYZSfA4Cf dmVkIGZyZXNoIGxhYmVsZWQg p0c7kEX1wMTmnJW6cPWwxDvj OpSbJK9hyJJjAO1jRWcgYJmh pmGva0HsTE77jPFctzUrvhSd HiZ1TLOud30mOPZthMVaOXUo JoStA23vBY87cGAkA790hQZp iXjalHxukr9uRWMgcLJjdAD5 JKVfhK8kwM90uiEqnmNPFE55 VVPqkRYkQEL9UF0eSUCtujmb ZOGpUGLbRWD4WIfqlB83fGMu XGZzMTZccGFyfXtcKlxlcGlj m7BmuLSlZZxpAVMpIYMsIWiu OEJjL2LYKLUyMGNbVHTpWQGa HHj5MUuqV9CFJDWcWYUxIju3 JXV4JvT4CPr5QPTRYq9zZfL1 JXq2VyI5USU3ZEZkTQpvbQEe IFxcZmwgXFxmIEFyaWFsIFxc akF0PXMfGoCwNv3tSMwkyWwe Nq7qLOliES44OSOnp1Xcutrj RoqgwCRiBYZ4RTJvr46lCQQS LlxwYXJcZnMyMCBSZWNlaXZl ZCBmcmVzaCBsYWJlbGVkIHdp iEdniBchCRSojZorhrFtN6L4 swSlSO0rBEYyPZZbL7VpTSEq E44hATOdvI2kKRHmDH5kZMHr sRF6tV7iFTOtJgOymlLcZIOy OUHsvTTjpjUskjXhe2MrSoHe eP7tuEFnv9OcDSJ7Qv9idNXy RDOhgjW1g0SsLGnbWRKoWfjo CPGpZ3QwA7OfxjFdtISuIRQv flAsv6smRVO8ROPqxOZzsRWh RnUdFxltZJQ7z4jvAIWtvYVh APF6GHpviNPuZBHuUHTrFOln DbFXUeZpEwZ5JGS1FGK3JwP2 QGu1ATCNWjZbIvDiUxEzAkFa GfCaFGb3ATk8QHpMUtW5HZc6 BTQpBBAmDMWdIIQzWFz5FIQa XFxmbCBcXGYgQXJpYWwgXFxu F50qLkKfVETLArTCqU7xdLMM t0GvZEJPfQhdojcpBxitfAPt KZM9DXJiz84jZOJYHovbNAVy ZnMyMCBSZWNlaXZlZCBmcmVz aCBsYWJlbGVkIHdpdGggdGhl BFLxsAqdjuAkP5B9dgMnHU6t GJUuIIGzL8XhNXLqE61yNNRt pE0xDASdXV1iBNJpmCI8fL8n IDEwIiBpcyBhIDAuNCBjbSBh jaMqhqRvp5CkUjDrnU9lmGMh v2SkHMBkTOydEB77FXUsjJ64 paXjtWClWKSzr3NcmTw7eQHc XJurDAQvwS6jbM3nMiNwn3pl bIzdp4OliETaBBsyYYRbqQZo GFpuqT3iItKrn8ufdUw9GMrt jzT8WCPkdp39MVauYFZoV2Ew I8GnNYcbNXZ6ITBuLcUrLOGo OD0HOmTeEILpQxOyOJHnAMq4 ZTh4TU2GWsDqZVEwNGJ8SNw6 UWXgGIa3YOuhZD0GMUZqQmf2 QaogJNH0ZFY5LsGzSJNfOmEa ZKGjMHtxYrUQjfmdlFBgQU1f kKyllyZtGXFnQDj8urvsEEMx B1a6KWPsuBCkUIwsLmKgXGCg clxmczIwXGNmMSBSZWNlaXZl ZCBmcmVzaCBsYWJlbGVkIHdp dGggdGhlIHBhdGllbnQncyBu QM9zVHJBOm7uKZ5rUGq8lgmx XPGfG8p1JIIhfDXzPIbfFqPc IGlzIGEgNTcgZywgMTUuNSB4 NGYaUXK7EEUdMMUewCQltV7z YFFdX20uimImE3ZbcDqhOXCx cGFyXHBhciBUaGUgcGxldXJh VNPhh2UqZQmsDOSbDWHrCITb z7NwENEeZOIdu23cFSOoUSSr FSbwESEeXOUgIU4zGNXdKnGn t7ruXBVhkeIcAF6uBZIkYWVe PvKce29wMEB6mL9bZBQ2XK2g ZDJswmNsk1KilAvdYDVfJLDr bWVuLiAgVGhlIHJlbWFpbmlu SwZgwOE1ehCjTZO2wpXbR4Cu nBGvzhBdHB0cwo6pqzOxidPv d59pf1EcJgf+PTAfPYGxkR7o QTzeITBlzmnrwNd3RDToS0Pg y70pHOT4hfTxINEdIZzcCQDy BqChdCToLhSdjDRgItCfX78t aWxsLWRlZmluZWQsIGdyYXkt dJKkUKSqgYUhQO4qe2Usa6Zj txUzYR36HFQzDBDgTWSxzLO7 ybEykUfyoBEoqaJzBmnqB11j IfTxhLA2aKEjmMHeKT9ujGoe NDdpwZMkS7muNyNvVP3oFSOz XYNuEwFqV71lUdWaeHM0nLPg gBLweaPymuGcDBBrXcU7BJEp LFL6KWUqSTEutBZjtReiHFIq uE2fWSilwLBbtF29MYKtuy3x dw8nfZeaFUFuLNDemEFmST7z GJBbHXCgm14rgJlkFTIkegYg C7h2cJHzXK8hrjingqDncvLv PZ95NGEhXOKit43feThpNPSa ZXVyYVxwYXJcflxwYXIgVGhl IHJlbWFpbmluZyBwYXJlbmNo wD4qPKbzTZMfIVAscmYwx9Fn kfj9FKJjwULvp4BzoYZ7jAXy WETrA7Bpw05eSMlgZSIlNCHw aMatVJj6DCKymvBjl6BfcFq8 wTSmAqNfI2Jdl0WdjMxxxR6z mpEbwCXcUHUiYPGqc3DvVesd VMPgtNCtWKwlxeFqn4XpXxsm uM6xZCWceYT9QHXkUFUrMVue GPOaqSKpQJOmV3Yoh32nI01d GYigylboHKIvVESaBTD5GNSn dGlyZSBtYXNzIHRvIHBsZXVy FMruJHHgJRSkLUL3FLWtsVKs y2GeyYF7kSIiUG0hLCKwTBCu FWVmDxHdmFQ3jgBkQVUzMLFv r15asQkaZCDKAdqeMjOjllPf ZK50OVRdfnTpy6Kop1Ssu11h KQItFTLmc0JdoDygdFPrlSOx TJsrq6pusiHdpBOzAUS1TwBz MXRaTHVaq8YuAahdiy6loVZj eIiaTIFNYFgzA4Aus24rGXMk MHMea6NxvOsyiBEqgWZfoBVj y4Rdq2txXTHjJKlvAfAvKhRr C37dwTLhxK78UY1xXRAaSAlz JZRcT1XrNSOkZFG7UPJfk2Db f2ZulVUrUP2daQkhHHjwaEKh E0bxHAFuQP4wv8EfBDXvFHTq M4EapJhvDZLKMVM2GWXyq0Ud d2IvaLNvAW6xgSnbTJworQAs P8qyIXGtCA3gRDFiETneYP5z ZmFjZVxwYXIgRDEyOiBBcmVh ML9fKRTiSACmXRyeZ11fH8Ud dGlvblxwYXIgRDEzLUQgMTQg MoJ0koowdx9gdzOiDKPcqqPi A0y8lMKghPSaWWZdsvJRwHWu l8IyIKgvPYSoBVAZIATjCOQV TOnMB8YJLWYhd7cnnDewa5Fl tJGtIP97SQXdfEVsDDY5SM0g fVxwYXJ9 MICROSCOPIC u8obzDFsEYCduQU6NnAyOUJi DESCRIPTION (test e2eqn6VlwONjmPLtAZoqcMHg code = 3371) beWeue69nTV6wP57YZ4iSHSd PtI9DGLtjgS4Yaf1FFQhNKBb cMGqC667f4ffx9lgfzDxhCV6 jCgeGNRccisxRdC0GWzjFANr xwswIKa6PCofLMRjiYO4FGDd kLJzZ5EgVKIeVE2qgmi7ZLB5 HTevKAXrCwI1PMZqxOMaSGQl gYhkVUydt710MLF8GwFaCFFb vtPnwHufuE7wTeTeGYMYJYZi n6CeDZYtDFRtgefnTRVqXIXk cn0= [facility] [id number] 08:58:34 Test Item Value Reference Range Interpretation Comments Case Report (test Surgical Pathology code = 104) Report Case: [id number] Authorizing Provider: Ernie Washington MD Collected: 07/15/2022 09:20 AM Ordering Location: [facility] Received: 07/15/2022 11:36 AM PERIOPERATIVE SERVICES Pathologist: Willian eRstrepo MD Specimens: A) - Lymph Node, Pulmonary Ligament, Station 9, station 9 B) - Lymph Node, Interlobar, Right, Station 11R, station 11 C) - Lymph Node, Hilar, Right, Station 10R, station 10 D) - Lung, Right Upper Lobe, anterior lobe segment ADDENDUM 2 (test code u6ahwTHyGYQuuKG5UwYrICJi = 3382) t6giq3VuoSLpkCYzFIqpaGHb wnVyhu39hOJ4hU47BV6wKJBh UxI5PKPkarM8Vwu7TUXvMICt dUCdJ303l0glz1evjyOtfRP7 gMkiRHOmkkncYgF5NDejCVTb ccxmKCf6HZhrGEUztTY5XKRa yHHvT5PmBHIeLJ9rqcr4UGN9 WCuoFMQvKhC1BFSpuJOeXPKy cUatWJeyz876ULE9FqJgTTRb yhPgeIeydE2bQnDzHFHArYyi OBBkCFJfWESjAPwdBWAzpS2z UWjuq0YiBYI4ygZmIKHzavTu xkIsjTq8eoGaKaHOZ2RLYG38 qZT3dA9gRLVrt5WlgghakNDx Yu2dmYVhMXL7JB3yr5sjvh3g sFTbPYpmVs5rZIUeziebif5y xDOmJKMvzxQQMVUECXA7THgb YXIgRUdGUiBNVVRBVElPTjog Nm6ELRGQOPXRQJNGULLvmmkv YXIgUGxlYXNlIHNlZSBhdHRh M6dtQNVbN3XltoPgKHUvtD5d qWCtj3LkOgWtdIfuooFfAETw aWxzLlxwYXJ9 ADDENDUM (test code = r5ofoTBjJZBrnAW7VwXdJZRb 3381) t5saa4HwhSFdaCQmJAqtkHOs jdRtvv77nWP4mQ66UF5nJKEt BnS8JDObilJ0Sng5FEHrFIJx rWIeK754u5amc7wvzbLekKB3 bGxzRJMbykmqOtY2GCyqFEGw ousqNFw1SPjwAQBkzYM8KYTs gQXtF7FeYOEvRH3bqdp4TVK0 YHaqCZWmTfF0EUXtpHVxWNEh wUczIZtxr241IGH4XjDmPIAp snIxgJccfP8bOlRwSZDMkJjk NPRmJDJcPWDeZPzhFLOdmP1x GKdgo3IvEXT3tyBgABWjqaEs gTfbTFXjc6UnuPAlr3MnOZWJ WAOvxB3gpG1fx4ZcqG7upKVq Wh8gePXtWJX1NR4rf6vjmo4s oFNlIOiiRm6yFXAeiojpwb8c cGFyXHBhciBQREwtMSAoMjJD BqLcbG4pBCw3FHXDEGFMC7BM QZXacDPsHBPWFmMIN00ZKPfo OTAlXHBhciBJTlRFTlNJVFk6 IDIrXHBhclxwYXIgUGxlYXNl KESiFuRhEQJdCLM8vURgeFQq JAOcON2wSWBnanBrv5B2PUKz loAsnQR2eTKwEJLwy4TlwVTx IFxwYXJ9 DIAGNOSIS (test code a5dpwKEuALJak7obGVAtyOCb = 3220) ZzEwMzNcZnRuYmpcdWMxIHtc cnRmMVxlcGljOTYwMlxhbnNp VGBeiMJyF6AsbpszYHxfAU1o WP1guQbfqTPjeGBpPOClNjPl m2php406vKJnt1ugKQOXhqvb fCn8bLvdX04qe0Z2ZwpgU1ro AJN5MMhlnbBznnLhPLGapJI9 ZOsdewJeIQRiF4DuAP0gFPxe oLSoJOP8iXqpQIEhwzlnUbJ6 KQgbIJPlkanjPGv0NBpfZVOl vRO4EVBspTYlZ7RgUFBaPE8b dgk7PBX6HGplEFByEeH2GQFr rSZsDAWqmRpvTBiky070MOB8 TyEmXDSyjtZmuUzolY5qMvUw ZYbkPkHdDK5dFAoLEYjlYt2J OPtlNBPOJG1CXCMPDUuGM9PY AY4QGRHHKUAUVG0NEFjmGDPD W2bPZF5ZUvraBCKwW4DdGQFx ICBPTkUgQkVOSUdOIExZTVBI YE9SWLXeFRWxBOmbsOIjRSFt jzAftLHiLHUlYUOBIxYVII7A IEOYY8ZHEZNGAzYGEvxAHrTF DOLRPZNHQA0ONPDcXtcaSTiS EIWJN648EGVekntqQzJsEM1r XS0BIQJSJE0BI86xODaWXGbo Ya2WOFFgRV4aIMnsOWSiwGWd HXjjJfJbaKJjCLFhQBGBNU1Y KYYHC1WRBIPULTnZRgzfE0PK HFrMUgFnCIGzOBLIA9jTEB2G QsblDHHuN8XcSJFfMKNDLcYy DqRADLhNLKmUIPOMIT6GOPZe VQRvRLsvtBKyLRDzztNeQ5Wb WXWsaqLNMuXGCE4ZGKPNZKxS BENOLPHTRfNMI8UEILTHEeQP OdyGGsPTJ5YWFSVIF78MVrCm QLZGL00JHqUOC7TGQNn0QLGv fwavYqCegh2rPU8TCcOKP7oZ SLHJUVIXK6AIEhXONj4NXJte CI5MYbyPICCBTaBPZtHAEHrE VEVEXHBhclx+DLUwaqnLK3UA CHFETU3GO7tNOtXXICFOFvTM R2zIBAPzRSQyANspFIIEHvYM ICgyMCUpXHBhclx+LSBcflRV ML6CEY5EDQEXRrZAFQVtEIVL DMOLEyCUFvVABIUWHSHSRJ0A JhGKZ09fgFPrBD1cGJc+Tk8g YkdTP5EOMXksAKlIOTVRGHPQ RxAJQ3wYIdNTTqEJLACWOIeN SUVEXHBhclx+RFTyqm3FCJaR UPCJS8XBN1PZCQIISNuPMsVZ ZZ7RREtIIJjROL6OBFIQNLKx yVLqEH2fUOq+VZCOQQ7HDTbP MDdiAlFZKMJVJI2MEN3ELgkI UnboUwTNOSAZZhUbNn7NLW3H MWpFIiCWD5ndMUHhOQQQHFHP P4TJASglXCYmOF9cUZOBASCZ YAsqMNRXCZKMD50VNNSjumQr BBBeRKTDZCuQGXdbYHEGPp1S QVRPVVMgSFlQRVJQTEFTSUEg GC8pUJaYGBLFN3tVCr4MGtJd jQKxRJ1xXHv+SFAOZQ0FD9iC IhXGCTFNBW6QEmTsTITeVcYU gUKwXMbYFcD3pBkmEEAeWGpq URC2q5orySVlDAJncOXuDYOp MFxhbnNpXGRlZmxhbmcxMDMz AWT3wqHfOEEbNBrhEBXcLCjd Sa8xiKRjwZfiZlVtJUHwz2hy agTFxpwupAi8f1ylEROvQtQ5 qWIiSOyvF2auvmKgcFVyNHIz WXl0uZ13TNCgjH3ucRHhAEtt epCjRvX9XElmKMPkObL7XZOu qCDjMIPcK2tcLMIzWStaEDFt DYyrtDUyEDO0cDanu3A2dNAy cENctZulAbHrBcHtCtMTl5Go AQt3cQuiD7XnGFQwVfI6oFDq AVOiJJcgWDSmMHVgkaD5pT12 HSoqdeW4dLIyw4Llg01ec281 mF5ziMZqIJW3ZQItNLEhxSHj WBZkYLG1BEGkrRKkO5xnHPCw BJ2mduazZIyqGLalLHIoxFH9 WUCrrBJtN9XoUSBpBDagFTAr yiu4XvXhXd3klIRfoGdnXBrx r5uuj1ovnYKzBag8KJVpUsJo LievCSkhg9Okn1gkKAAbby9l BQQ9bZGtpWuse0J2qMFzQFLa sYBoJIHcOQ5wqDXcCAQhjN4s cmxjXHBnYnJkcmhlYWRccGdi yoNhWt1ifYjhHWT4TLlkC1po vP7oMzE9FQyjR2yzqI5wZCz5 PXnyFMUezCY1muC7RSCywYXe Q9WuoC9qTWMzQE6neoa4z9uf HZL3AQidNREiDmO4dxM6LYUj nOJoHTGfzWdmSHioa172VFG3 HaKcKPXwk0UaS0SaiYdaE67u kYcsI32yHLUgdGgpuG8hxTkl wK7sCiVhWmWaOFzqzByfRE7e XUQxL3uaaSQeJVTgDBRdM3lf JxQtuJ2feFcfTGbrueUcBKVt Tzp6JBCamHFhTNLeWlv6DSJo PVRvJ72rszavFXK9gI9td4pu f1ThEZkfFPR8HIBdk45jLLtc krS6LXnwKc0jGfWhDRZ4PKjv YXJ9fQ== COMMENT (test code = d5rlnFQuHUMtaGG4KyKrPBPx 3359) b8ftz6PntUAquBCbEXwqnZVn frGato68zCS5uS65QO4mIJXl IsF7AWSqmlL3Zbx8ZRIxDVYo pSDlR607m0bua8iffpBpwSY8 yYqfVOAgceabIdY7INnzLXMv lbknJWr5BHudUCNsuKW2DCKv wWCkZ9VvIYTrBR2ugge4XYT2 VVbkVBQrCqK0NIFyqTYnZGPf aXkmLKkjf573YGK7TnGeTSIh rqVyxLkthH7zBeCcZEGAtA7c ICKuTBRkg2W6EXs0EOLwpnNQ aK2ctvvjXCOfnWBjEW5fhv2n eKnkLZI8SKHtywnpKNZeCCIk i1Pws6lwoDSdGKNaHR93AUUj GM3en0bawi9wlHBvJAXhhsFp pB1yBIBuUWYezIEcoYwdGq6p QpGyfNs5hjF3hNtwXLOrMDYm yO5yoEOqEJhbWZPzKQYjOPBq ZHVtLiBccGFyfQ== SYNOPTIC REPORT (test LUNGLUNG: RESECTION - code = 5765) All Cgductwcr5dn Edition - Protocol posted: 04/09/2022 SPECIMEN Procedure: Segmentectomy Specimen Laterality: Right TUMOR Tumor Focality: Single focus Tumor Site: Upper lobe of lung Tumor Size: Total Tumor Size (size of entire tumor): Greatest Dimension (Centimeters): 1 cm Additional Dimension (Centimeters): 1 cm Additional Dimension (Centimeters): 1 cm Histologic Type: Invasive solid adenocarcinoma Histologic Patterns Present: Acinar: 20 Histologic Patterns Present: Solid: 80 Histologic Grade: G3, poorly differentiated Visceral Pleura Invasion: Not identified Direct Invasion of Adjacent Structures: Not identified Treatment Effect: No known presurgical therapy Lymphovascular Invasion: Not identified MARGINS Margin Status for Invasive Carcinoma: All margins negative for invasive carcinoma Closest Margin(s) to Invasive Carcinoma: Parenchymal Distance from Invasive Carcinoma to Closest Margin: 2.8 cm Margin Status for Non-Invasive Tumor: Not applicable REGIONAL LYMPH NODES Lymph Node(s) from Prior Procedures: No known prior lymph node sampling performed Regional Lymph Node Status: : All regional lymph nodes negative for tumor Number of Lymph Nodes Examined: 3 Dusty Site(s) Examined: 9R: Pulmonary ligament Dusty Site(s) Examined: 10R: Hilar Dusty Site(s) Examined: 11R: Interlobar DISTANT METASTASIS PATHOLOGIC STAGE CLASSIFICATION (pTNM, AJCC 8th Edition) The suffix m (or a specific number) should only be used in the setting of multifocal ground-glass / lepidic nodules that histologically present as adenocarcinomas with prominent lepidic component or multifocal tumors of same histologic type that are too numerous for individual separate synoptic report and that are not better classified as intrapulmonary metastases (e.g. numerous carcinoid tumors). Multiple primary lung cancers showing different histologic type or different morphology based on comprehensive histologic subtyping are better staged as independent tumors without m suffix. pT Category: pT1a pN Category: pN0 ADDITIONAL FINDINGS Additional Findings: Atypical adenomatous hyperplasia CPT Code(s) (test v1izfRQoHVHeeAT0YgVzPQJz code = 3357) v9wvy2MveLUgmITiMIowiLSc unAerr47pTK5xI71TA5jMEFg PjU7QRIsktN0Jfm7QIRkFCTy qAYlQ632k9sts1dwwqTzxPB8 cVtgJTHuljvyXzB4MLxsXKAa xoodHPm7QNozEHTlvGN5HHBx oBXtQ7GfZGEbBM0kqyx7KIO0 OOiwWEUeIoL5IZKhyFRsOYQp wDmiQLply584BAF7DqScTPVm pgFxiGrshX0nSbZqTHV8FYUh QJauVRQqTJaqCMSBV6mxOMB5 CLINICAL HISTORY u6mrgIKbSDGrzAV5EjRgEJTb (test code = 3356) a2yib7ZraIRwkQCeFMxlyWZd buEagg53qGB5qO42OU2jXXOj VmC7XSGkvlU1Unz4NGMhNJRz mDIqE296q7kci7awkzUglQQ9 wOblVGFljsclMcD5CCyjGSRd akzeYSt1ZWtmXHGgtIM3XMDr fAStK7UlZREpIG1lcaf2TDO7 AUekIDRzSvO8CIAsxIZfMMIj nRgzWYvmz439EJX6PfQlOINi wqVkaYrilR7oMdBsJMPCJDBv v3JnvpBqtc1nKALoaIrdvSTf jQ1oWAPrlk6= GROSS DESCRIPTION m0zliOZhCFOlsJY9OhWmNXKi (test code = u0poq9SckDNasTPgEMufwLYq [id number]) jzKdqb50kNK9rV95IY3fUCTo LwT9IICoqeO3Pxr5KHOoYWLe eLRrT981c8ost2ftkmUdhOH2 VRNpOEIaB9TkWN9nJKKicPXl T61ryGVbNQR2COFoPVVhgBAv EEWbOTZ1OELcnULkK6evAMJo OI3bcytgLFnrJYjsAXPelOI7 SIQztDAbR6XiIWDxNFtkRIMr vys4WjSgPn8ywVAygEznKPjr EPSou6duXXEqePJxKCM1THcy jCZkEFUnOGQrUFc8SEQbZPgj iUIdDV6ydAxuAhupnCdpp8Ph dCBcXGlkIDUxMDAyIFxcZGIg R6QLTBYxACNcJKMaAJHvASi7 OJbfH3DFOWPjMROiNpl7Byn3 XsU5MDj9PKYIHi3vZhO7AXn0 IrE8QUA6HYRuYQfpxOYbFEia ZmwgXFxmIEFyaWFsIFxcbmN9 JBSrYSduDXIyQzQoUZ1bXZpr pDrvEb6dPLsjSBEfqI7kTRO0 NTmnJ5AxFW03HMJFnYE5wT2g HJmgZXLsmcofddYcFQIjI3Cm dmVkIGZyZXNoIGxhYmVsZWQg a8h8pHC3vEXvoTH5lADkzIam LmHdZE5agDRzSX6xVDsvKVft kwBpv6GwZE45nLJpsqBumuRz VlO3HLTpa55oLMAstMStTXGs NbGvM63cIQ63jRIqA548dZSq dRvrxHenqk3jTOAlrTRgaYT3 MCWzcR5ebL44tuQpifQFOE82 GAMcuVAhOYP9HX8dQWFtrxma WRAvNPQpPAI9XPtmxK50wEMc XGZzMTZccGFyfXtcKlxlcGlj t1LlwXBgGMlgNHYnKOVzDPvj HYWiB8GJTNAkORCxDVNnQOSa EXu2KObnJ8FRMDPjLNOhGdh3 VWR0NrN9CMn8YHQJWe3aAkO8 QRl4UgG8GMT3GBEwSBdfvKIk IFxcZmwgXFxmIEFyaWFsIFxc xyW2WEXyUjMpQl9lABkrpPcd La0rHYrcAZ59ZOFei2Ymrdyf ZspnxHYeFEN5QTBkp97qXTBR LlxwYXJcZnMyMCBSZWNlaXZl ZCBmcmVzaCBsYWJlbGVkIHdp cLdqdBkaSGTzlYkafxCdJ4X0 voTlOS8zDWZvIRAdF3JyXVAv L80bSSLxjC6hZJEgXN8aOANe nRX3rA9tIMKlGyDivlAmNIRe SIAwrQRkxlRtlmZgi4AbCpHw fY2ieRAzc6IvMNJ9Zs3rvCFq LIIxktP5b8LtCYshZQArRfwh EEAzZ5QtT9NpezGuyTBdAURv ffByy6ssDSW8FQRqsASznYZz RhEyYargPKK7g0knFXZbnEOi SVC0TUmnrTReCSKkCBNcSFam KxPWBlPoVgY7NRM0QSC0QlR2 TPv1VKTQZrBiNgWhTvFnSjGa HwLaPQp2BHi8VHsAObM2LAw8 DTQwSEUoAFGwQDXxXHj2RNFc XFxmbCBcXGYgQXJpYWwgXFxu P88uNbJbDOLHNiMBwS8kvBLD k9DoYQNUeMlbxuknXehllBTq DSB6IGToj69mZRYYOrqoLCRl ZnMyMCBSZWNlaXZlZCBmcmVz aCBsYWJlbGVkIHdpdGggdGhl GUBjkTsewoLwQ9K2rvCxZC7h DSJtUTDnD6HbYGTeK91tANNq pK0xGPIbLP8mAEUzmQY3wT1c IDEwIiBpcyBhIDAuNCBjbSBh iyFfebVsw9IsXxVqxB8kzYYg e7UtDXWbKNagLU14IDSpxX89 haMgdBKoGWErd0IyfBx9vYYc PKphFTHudA4emM8pIgViv1rd sHtsn6PfyBUdWGeiTOSabAMk YPrybU3hRwGrp6zttFr2AXml ofX2RKEacv91SQwrHIWwT2Kz S5ZfIJinNYE1KCFxCcOuGJAs FX4QZwEhDDExAnKqZLYwYNb3 LGr1OV4SHfEdLGXtBXH5NJw8 PSFqOCb5CSovYI9LIJKhRav9 ClewJPR2UIQ3ZqKrSGPwMiLh EVVbLUggAqBLhyleqRPdGR2n nQufceSxGPGbNWr4pbxwGEZg Z7d0BTOlcNSmVRrwFlLtQHMh clxmczIwXGNmMSBSZWNlaXZl ZCBmcmVzaCBsYWJlbGVkIHdp dGggdGhlIHBhdGllbnQncyBu GV9qJTDRVn4gBD5xADy7znsr GWXvK0l9IZSuoJLpNQnjIiAb IGlzIGEgNTcgZywgMTUuNSB4 KPEdTRV2EQFdHBUelXZhzL8p CAAqD85cpzYtS8KmwWyxQOEw cGFyXHBhciBUaGUgcGxldXJh RTOoa3RkPEiwBCCiJDSeSMHc r1VuJDZhUUSwq13tYCGuUSYs ZAbwWMYiMEAsUJ9lKDMnPpPp s8yrDEGpygXsYC9fLUVrPISv VhTsf38kUYD4iV7fJJL3CV0u GRXcilXty8PfrQkjSFLsGVUb bWVuLiAgVGhlIHJlbWFpbmlu DyBolIS3niXhAXY4xhNcO3Sp nDUurgEiZS5wtj9imbFjsuNu m26hu9IqNni+MOShHEEjeC8i VSemCZKhpsxlpNb6UFLuC6Rv o44fVRM6chCuOEKyFWlpBNTl HnBkdVKkAzWrfUWpScNrZ79m aWxsLWRlZmluZWQsIGdyYXkt iVAeGLOlvDHgUW9if2Bcz7Wn enAcLN20BXOgOTAwPLBggUG1 zuTmmMzsbQVnjnBsAbneM18q QdWodZN8qWUtjNXvOP6xyBfm QVfgsTMlA4yzWvQuAP7hTIGo WBLfVrJtH63vYaGmeVT6fRYf bLEjqfXssaKwNQCfKqI8NLTa NSJ0RBUoFYRcsVHejNwbYWTq hA5oYLgrlLIezH55EEDaan1j bh2daNwpRBYiVIHtkPLkIS0s HQSmVJXyv43bqXqiXNVgtzFj E1o8eGXuQH9zchruwhHwahUs SN27GTIqTNUdg63fhDxoMSSy ZXVyYVxwYXJcflxwYXIgVGhl IHJlbWFpbmluZyBwYXJlbmNo eN0tHYfrQKNvMLGswnJjz0Sb mne2EPHfyQStn9ZmfVK0bKUe MKUxD1Bau65wPJcgWCSdAEMi wQrpEBo9OYVqesRes6FkxVz4 wBYlLaWeG1Vpw0YpnUhysN6q uxTppJLvHPRoASHny4AsUeho LDGreUMiOQyyucQnc9LcRyyq cS5nRRRfeCT9RGCpEEHpVKkx FHPyrUOuVDTjE5Zrb60pV37h GWjdlaozTSNeBIQqDMX0QHTs dGlyZSBtYXNzIHRvIHBsZXVy FZleNEZsSVUtYOD0XRUjeWWt s3CqwCU5kISgOK7gPGByFKIc VYZyOzTtzKS8yfHrTFFcQAUj j83mcIyzOXAKYyytSbElwaRc FV58AEGpqgGlh0Tak9Dpk87p SORbHWVgj9BpnBoxxXQwxLOb BRwrn1mpqvGtmHTpOKI6SfBl LYWnBFMzs6EiVskrvg7amYHf tWsvIQDQCYveQ2Nyc56jOXKn NNInu1PrgFvbcJPjrDSmmIBe v5Tyd4nyXJYiOKsjTwBmApBd T78lcDOqgN43AX8pWYJhNVdf LIZbI9QrWWJzCUJ9RHGyd4Hs t2RcdONqYN8siUjxEVozmZEy D9hzYWSjMX8rw8OlPLXoTPZp S7EzoUovMIOZMUG8FTVtp4Nx g9MtqAAvYQ2lbGaiJLkpeBGf N3iiXPGjBU7vVQGcGDpcBA6g ZmFjZVxwYXIgRDEyOiBBcmVh LA2hVGFcKKIjGLctV30fQ3On dGlvblxwYXIgRDEzLUQgMTQg QbN8wndjky2sseTyUSUddgXb N6z2eOMsvCGjGLCpqeWGvTLu g2WsLFyaQCVqRUQTYIZfNIMH JKmHC7TMEGOna1hfhKsrg8Mu aQUdKQ96JLFqxNFyNPO3NH1q fVxwYXJ9 MICROSCOPIC h6kvxDUhTQBcsXB2AaCrSNBo DESCRIPTION (test n2xfl1BasXPwnCSeSOlzsVAy code = 3371) nwNxhx97cOE7vM63FV5xYXYj YtO2LNJswrF8Uui4VUDgSNIj oNBuE401r6bhn8awjzZieZH1 qXwfYWRpznfcTeZ6BFllQQQg dczqDAv5GYbxFWVgkDY1HZLv hWLvA1WkZZTeBU8lwcn4ABX3 NTosSPUbYbP6AZXydUJxLBCt gTddKKqbl189RVV1XwYnVPGf ceKbsStbzL4vQuQyEVHTEQNc b8DtZFVcHRVxcwflMCTvGPUo cn0= [facility] [id number] 08:58:34 Test Item Value Reference Range Interpretation Comments Case Report (test Surgical Pathology code = 104) Report Case: [id number] Authorizing Provider: Ernie Washington MD Collected: 07/15/2022 09:20 AM Ordering Location: [facility] Received: 07/15/2022 11:36 AM PERIOPERATIVE SERVICES Pathologist: Willian Restrepo MD Specimens: A) - Lymph Node, Pulmonary Ligament, Station 9, station 9 B) - Lymph Node, Interlobar, Right, Station 11R, station 11 C) - Lymph Node, Hilar, Right, Station 10R, station 10 D) - Lung, Right Upper Lobe, anterior lobe segment ADDENDUM 2 (test code c6vulYOxLPXewBL1EhOnAQFg = 3382) e9vui5LluMQklJBzPHndhPOd ciCzfc14dHD3fA20WX5yWXUk PuN7VUYjiqC4Meq6HFDaKSOb iPVuP574y8gvh6vacuPqlCH1 vSqhIRGomtrgMmZ1NOxvHOSe ekrnYHf2FRxcCQKopNR3XVOi hLGkT8DjEFZwVG8muzd4BTP7 RTwnOOXoOiX3WILgyJYiRQUi bGltCYoyk408KDF4KtTaDQNx gxOdsUaxzA1vObKaMTMLsTaa GLJcOWGdEBHcESznCHWoeP7a JVwwe9WaMHJ9qlJcAZUwtyYf yfKmdDj8mtQcJsBQV1IBGV69 vCR1kS0gPFWsi3KlrfzjgZBo Oh3gbURxKTE1IZ4qt0knzv5g nHBnMYmtWg0qZVRlbueebz5n lTEyCNJyrfFLGJGEMNX9HXwf YXIgRUdGUiBNVVRBVElPTjog Il8LMTWXOIHDFBNNLPSghspy YXIgUGxlYXNlIHNlZSBhdHRh D6iwRPUiP6MbawDdEWEojF3o mANvl1TkSsMasJhxzkLqKTUn aWxzLlxwYXJ9 ADDENDUM (test code = j7swpZSuTDWacCP3XsRjEYTy 3381) i4rwj8AgtSFfzSFcHWakvTRm bvKaxh06oER0cB64RM2bQEGx AjS2HUSjmlY9Teb6IEZfBVEb lUEqR786v8hza7ykfkQfhKX5 fDxoMSTfkzmsIkK8QMeoHSYr rahaISe1XJkpTHAngVU0XVGx fSChB3WeNVAyXT3prel9ZGJ7 XDbcSWNgSuE7NBPqdNHvZPVf jOyrFFrbd386CAF1YmKuXWLx wcVpxVwavG1qBiOfGCSCcPuz ZMQkJWBkLMEwPEeqKNDzwH1l JZify7YqDIM0amPnMBLrphNk kGiwKUAtt2UbyGMwn6GvUTXT BIFugM4jxS3rg7UsgQ8msFWs Nj8rtFQdQEB3FK3cj1bzqq9w rUBhMFexMn4rMMXfecvmmv8x cGFyXHBhciBQREwtMSAoMjJD XcFbuV7dJPd9BQGBJIAGI6QG LECuoBSjTOOKEqKDE87JBQpu OTAlXHBhciBJTlRFTlNJVFk6 IDIrXHBhclxwYXIgUGxlYXNl HOWnPiHbTEFjHEC9rZSdiJDf IAKzUZ9mQQHzvqCil5P6OLNn zfPcaYH0zJVzAILii3DuoTQl IFxwYXJ9 DIAGNOSIS (test code g4cnkPFkBMKyy5bgNXBjoXUl = 3220) ZzEwMzNcZnRuYmpcdWMxIHtc cnRmMVxlcGljOTYwMlxhbnNp XMIqsKRvJ9VkzgzdYJnoYK9j OA5weRvrzBXrdTYwVEVyXgSf f5mit864dNCbq3syEAJXqwtf rHh8kZhdP30nq0L1HvdzW2tc VSB4VMbgvvIvybWfDITkoDH6 ANvpmhBhAEMtT7UsAH5rXBbt jGBzDTU2tXuvEHQcyavbVpJ7 IWkoXOPqcjmnKAt6SGcyNEKl gNH9CRRooSPnM2IfDQZpVQ7h xho7BOC8GYwlONMjSoM5NPQi tKGuHPBisVdwRHjaf661BQM4 FwRxJIMcldUibCfhyM6yEiBs MQnvQmZjDU1lURbQIRwdXs1R ITnaTSLIQS9JCMCOTKzDO0JD ID4JLSGYKGTISX3ZSYgpGFYT D1bPCE4PCsorMZZeU1EfZFVc ICBPTkUgQkVOSUdOIExZTVBI II7GEITzDQKmDLhzjFKrOXDp scKnrDMpYAArAOIVPsCWOZ0S RKZNM9UFQZLIZwDYVtaLGrBL QQLLFHBMRM0KJBBlRhhnMDrH OKWNQ304ZLWttwgdYsPsVY2v VM0UZVXECX0WH70mQTiSWGal Vq1HVHVdRN5kMGlfBCTzmJNp TCfbTaAtnKNoRZJcBHRGDV7Y LKFTQ4ZEDUVLMQoCIjkuU0CZ WXjMFmMxCNZrASFWL4wRMG2P VgqyRKVsK5CdFFFeTJXXRiGr IwTHUFrNYSzOTYFPAC2FRKCi NGDxSKgkgFZyIDAaoqSmK2Ae SEQgjlOELdZFXS2KTUKPBTjI MOWIEUZVAyAQR8BDKJPXBrSY QqqOUmTKH0VRWBXOB26NZlBg BBGZF54VPhGEW1MVHZx8EORo fjhzPhPlwq8yNT8DDxOXM4kE SSNAXNZVE7VBHrQQSt2WKLlg LI8MKmbEEVFUZdIPLnUOXJqC VEVEXHBhclx+FIAebeiPS1QL HXPYGG7YF1qAZaAALLZJYxNO Z9hTTJNcXQZpSBjvPLVIDwMR ICgyMCUpXHBhclx+LSBcflRV SY3BAG9CLXHTVlSGZOWnKEDT YRJSJsYZXyGOALQRCUPZPC7F JeUWR18ciHNjCO9wNXg+Tk8g RbaBU6FUSRiaVSgHCSXYJRNN AnKJX1jQXyYRCcWMGIYDRRoS SUVEXHBhclx+GSWrwx7VNKmP FHZYS1OYN0PPBVSGLKeXPcGC PZ5GFXkRZZwQJC9UECBJQEJv qHRnEZ6kYLe+UAKQNB6NSIaN XCahCiWKBQQAMJ1ZYK7YZykM MbiiSqPVWRZFIgWcFy2UKP3B GYsVDvORU5kzBXZxFAOSJXDM A8HOGOzgOCVmPS9jPNZKRAIH CXfvHRECLIXBN66KNPMfytKg SOMeEGSTLXrCTGmdOMIHZr6N QVRPVVMgSFlQRVJQTEFTSUEg LG6aEIxHMUTNE5dHRo8KSiNd xBKmIO1bWJg+WQZGFU4IY9dT EtSKBREAEO5AMoEfQUJmGiBF aGKaYHbJUeJ0cLfhURKzOMea CKC6y2mrzKMmPGIlwJVcLQPq MFxhbnNpXGRlZmxhbmcxMDMz ZUJ8haJeFLIdBCnpNFPmEZdh Xo3mpFBahSmeWnCpHGMhn2ws rlOPcrvvcNh6t1elCTEfKlZ2 zAHzMLosE3psewSubUIpBERq EHo9dF60ESHumJ5hnAPuEFlk xvDzSlV9SLllENObFaG4KOKf gBTiXBPkF0seHPNfNHylNRVa AYgqfGCfOMD0dXhtv3C9cAEt sODebRquYrTcWuBqEzEHj5Hy NJj6aXfmW6GwNGOeZbE5qDTw TJVbKJeySEVrFMUwvrN1xL13 KDcibsN7oODht2Rrb63nm841 rT7ldSWzUHV4DHGfRBSyvOJj LEFtFSM0KYGuhTRrD0wpATXk DC3gfjshQMncCJuwNQQloAH1 UUHaeUKjO6FxHYJtLGxxEPPz qny8NdIcRf7tvXXdjZfcPIpf p3keb9jvzYOvCrh7IKIzDcIt EgaiWTedr8Mph7spBLLzxq9a KMZ0vIFbfRsev2A7eHVoXXVg uNAxOUKdFM1pnZEsWGPpyI4d cmxjXHBnYnJkcmhlYWRccGdi omOdYc1xqHoeKZV1NMkuD9pb hR4iAxV9DIocS2meoM4uBCk5 FFbaBKBvnNE3edA2FLDpsZBk T7RhkM6qHBFrSL3lzpo8o4ji KWF5RXpkZTQaMtY1elV2SABq qJUiQVZdkHluCItjg695HAQ2 LzCoCAWdl8NwC1TwgPzsF76p tLkeE58lUIIlrOaftV0trQeb xO7yVhLaHqLwFOfitOreDA0a CMZkL7jnzWPlLALxGLYpO3ys GdCfbI1faSpeFPdmgfTrAGTv Bhf3XPUipOWoEDNtYih7PGKb PZZqW44wxhgkBUQ6oQ4yr9xg c5HaXEueMFV4MIUar29rIMqd lgX7ZTctFd6qErYbGFB6NEgl YXJ9fQ== COMMENT (test code = s4capRQxAGXakMM4QmVtSFQr 3359) r8phu4NglYLzaAJsPTnmhTZy stIesk58mUW4lD95FI9kDDDv UjE3TNMgzkY4Lyt1PCTgWBZw qYOaB829w4gdm9wjvbDseMT2 pNlrVHSbbzycGeE2DPciFCYh mhisGSu0BCizEAMvmQT0RIYk nZQmA3QyAGOhRZ0zruv7ZIA0 ZVdbVYGmFqZ3QZSmgRXbKRNo qTipDMehe583NAS9CrPzAWTy xoTpvBrawN9sObWuQJRArW0x STVfSIQoi6P0KGe0LPHhrzVM uI9ofplnPPRsjXYhKI9eyy3l kUcsGQE4HKJdlxjsISDkVWIp l2Lag9lnzSEzDZYkFN30IJSm JT6lv3nuno4qlVZtTYGnfnIy gC3cPAIwHRInzTMkaMvcBn3s WaPomZj6ntC8vJcePCPdSXLc qB2gaDGsHMfaJIExEOSzJISv ZHVtLiBccGFyfQ== SYNOPTIC REPORT (test LUNGLUNG: RESECTION - code = 5765) All [id number] Edition - Protocol posted: 04/09/2022 SPECIMEN Procedure: Segmentectomy Specimen Laterality: Right TUMOR Tumor Focality: Single focus Tumor Site: Upper lobe of lung Tumor Size: Total Tumor Size (size of entire tumor): Greatest Dimension (Centimeters): 1 cm Additional Dimension (Centimeters): 1 cm Additional Dimension (Centimeters): 1 cm Histologic Type: Invasive solid adenocarcinoma Histologic Patterns Present: Acinar: 20 Histologic Patterns Present: Solid: 80 Histologic Grade: G3, poorly differentiated Visceral Pleura Invasion: Not identified Direct Invasion of Adjacent Structures: Not identified Treatment Effect: No known presurgical therapy Lymphovascular Invasion: Not identified MARGINS Margin Status for Invasive Carcinoma: All margins negative for invasive carcinoma Closest Margin(s) to Invasive Carcinoma: Parenchymal Distance from Invasive Carcinoma to Closest Margin: 2.8 cm Margin Status for Non-Invasive Tumor: Not applicable REGIONAL LYMPH NODES Lymph Node(s) from Prior Procedures: No known prior lymph node sampling performed Regional Lymph Node Status: : All regional lymph nodes negative for tumor Number of Lymph Nodes Examined: 3 Dusty Site(s) Examined: 9R: Pulmonary ligament Dusty Site(s) Examined: 10R: Hilar Dusty Site(s) Examined: 11R: Interlobar DISTANT METASTASIS PATHOLOGIC STAGE CLASSIFICATION (pTNM, AJCC 8th Edition) The suffix m (or a specific number) should only be used in the setting of multifocal ground-glass / lepidic nodules that histologically present as adenocarcinomas with prominent lepidic component or multifocal tumors of same histologic type that are too numerous for individual separate synoptic report and that are not better classified as intrapulmonary metastases (e.g. numerous carcinoid tumors). Multiple primary lung cancers showing different histologic type or different morphology based on comprehensive histologic subtyping are better staged as independent tumors without m suffix. pT Category: pT1a pN Category: pN0 ADDITIONAL FINDINGS Additional Findings: Atypical adenomatous hyperplasia CPT Code(s) (test q1lzpESrEEHnrBU1XbPqRHWw code = 3357) k0utx9YycEAqjAOjGHxgqNKd cyWrrn13iUW9vJ06NA0kNARp YwH4EMRwiyI4Uga2MSUgXVBq hKVuN243q5vzu5kjpkZbrSZ6 kDxmZJXpmxoxJtA3OGgwSZIt akqlANm4NFdeWABagFP4RJGq eHEuN6AmQYQtIQ9suky7PZL1 HThmXBFaXfH4IJLblITmXBLo bZviLKdqc136DHU9RmHpTSHn dzTcxRaovV8eCbJdIBM9AYIy FGjyKJPnFRukRIOBW5ykMML8 CLINICAL HISTORY i6nbgTGrAARijCY1WqQkEVLv (test code = 3356) w0bhg7KjsJGnxSGeEEcauJLx xlYmog83nSX8tS31NC3xYMWi UuB7HPLdrgU8Dqe8QQWmJMXy iWOoK234j7xah0bceqRhrCL3 cAasOJYgrgqpQaG8XTtbGKUf miyvKYm0RKpgUNMctLF1QOSt rCYbV6EpFYOxMF3jbfj1IUA3 ZRpgAACcRtG0DUPcnKRuAHVg hAmbAJvja537AKK1KrNcUZKj idVtrGjwqG8vNvOpGVCQUUXv w2XpfeCfct2hYVGtxRotbEYw wS9qDHWyhp2= GROSS DESCRIPTION p6izaHDeVZGzmQG8GmAfZBHv (test code = f1yjh1MztYWrzKBxTKoqhOQq [id number]) kdAknw91xTT2qN23AG6xBOFz FhP8BYGmkdD1Eee4CYFhCLKt wMCwV344x5vvr1kbqwFgxPS4 DYVuTYUdV0FjTN4aSCYlyINe U32hqLAjGZP7DTMtDNQnoDPc QNGsNRT5FVJfrQLgR7igBQQu HY5nqyjsQJfnTZpfXQZsaON5 JXYdoIGbP9IxERByYAtuFMAb hwe3QaYhAu8fjNNlqQglRYir WTUoe6agSFGgeMLwLHX4ESpp vYUkLKUqYQEpNSl5RHXfOSbn pFCyHW6qcOglSwktxIyob2Gv dCBcXGlkIDUxMDAyIFxcZGIg O0UKCNXcNVFnPJQrNAEuGKs9 TDnmR0OKELNuQPNmSxj3Uls0 NvM7PYd8HGSZDv3pQmE4RKs4 BgF3KGP3CHVrDCmnrOErFGbm ZmwgXFxmIEFyaWFsIFxcbmN9 CCXvJZimXHQxWwRjIB8nSFqj xJmsEn9qQRvaTBHsvH8bFQU3 TZzcX7UyPF98ZJFErBV3sP7r LZouPHMiaxebvuOwTXDhN5Pg dmVkIGZyZXNoIGxhYmVsZWQg o9b1wLE9cTAbnPY4bCTimFfo NoAiPE6bgWHqAG9rNCigIMwd egWqi0OgIQ12bFKmpjWzgzGm HeJ5DPUea56rZFXtnTXfIDDl FnJoO96wWH48gOZlD934tSZu wNmkuGfwiu6nTDBaxKSbmNI0 VASacG4coD76vdPruiFAQR23 YKVosQFiJOZ5IM6rZUAwqxxx ZKXcBVXeTRM8LBezdH63oDQf XGZzMTZccGFyfXtcKlxlcGlj u7UhqOQhSCxkQKUdEBQtXRvt AZDoC0SVLQKqDGPjIWQjABWz ZDc1BFzzF0QWPQJbVYXrYnc1 OYV5ApN4LDe3YLHKWh5lUcL4 MXs6VwT5OPQ2BBYpEUkcuVGs IFxcZmwgXFxmIEFyaWFsIFxc yeS1VLGmXpMmFf1jGLwfhIol Cj4dJSebFA71SFEzh7Rggepk ZrvfmTQsEWL4GNGvo71qUUNP LlxwYXJcZnMyMCBSZWNlaXZl ZCBmcmVzaCBsYWJlbGVkIHdp pUhehJtqCUVvqPhmrvVuG9E8 laDfKO8vFYHvTVFtD6PwCVCd P22lNYSioG1aGSMeKB3tNKAe yXD8aE8sSZNlBiCjfsCoGYUk TUHukOTpvrVsegAwc5OtQqWe gC3osGWnl9PcYPM8Nt6ylDKh SEFvtaM5f5XzXIxvXRLrNpsc XKLhQ2FyF1DuepUixCHfOZCl ruAiv5dhMXL0ISZhiPScoRSp TwZuPhpcHWA3q5jiYPKvjJMz VTT2KHrexYSmDGMzYBPeNTqo PgBGJzUxHkV3LKN5QKI1XeU0 JKl9ENCWRbEhClDkWpWbFoEb WgNlNJv0YNd5OFcZTnR6ARe4 NKHpFFFhMFIgXTNbXMo0VUFn XFxmbCBcXGYgQXJpYWwgXFxu E31dWbCkBVOZIrMHlO9rlOPN j0CxSIZXbJbcqjfoGmccbJTu CHA3EAFxs20ePJJIUwhkGVOl ZnMyMCBSZWNlaXZlZCBmcmVz aCBsYWJlbGVkIHdpdGggdGhl RKLrdEjcjeBdW8D8gwPzKF7a ATSdWLOjS6AlIDCxU09bQXYc zJ4xLRIcXR4hVSYxeBT7aE0g IDEwIiBpcyBhIDAuNCBjbSBh ioJhaqLgq2QxPvUzbS6peNZo m0QlIUYrEXnmHU80CPTeaN11 bhCfpTMnATUjn0TmiCo3bYYk COliYZWudC5clQ0kXfAwz4ah jPocd6LgmBNuEPqmBVEgkLXv PZebkK9hDrNaa7vmfQb9ZYyn xoJ6AINyfc65DSbyCDTcB6Qe A5XaIBkeJTE9LRJvDtIwQTGi AF5FAoPdAYLwOgYxZSTmVNl8 XMa8UZ5FRfOfUWJmXIC2EAn7 EZSyMEt2XGyiNM7RCRGsWiu2 FgcsABQ8SFP7EbZuQECuMdNq OFDhYMdfKfOHwujuoPKeLW0s bBlhjmXaAFNwKWp1zixyTRKu F7v6NOFrjVLsUMipBtIoOUUn clxmczIwXGNmMSBSZWNlaXZl ZCBmcmVzaCBsYWJlbGVkIHdp dGggdGhlIHBhdGllbnQncyBu NC2eWWQZFf9uHE6fVKz5fwup QVXyU8q3TXGfgBEjFRmaCuVn IGlzIGEgNTcgZywgMTUuNSB4 LCTiHPV0PCZjJKLpuNOkiA6n SJIgA60nbeAoO7FiaTkvDUBq cGFyXHBhciBUaGUgcGxldXJh TKNfl9AaMNwbKXCmPOVmKDPw y3YoMBJgNKHxg58iOUAhADLp BJohUIDaKEQnEP7zXJQhQhYv i8iuLDCmhqSyZU5zXAWjNJJz EoSiw69mFRT4bE9nQVD5CH6o HEOfdsNhx1HkkDmxSRKkTBFw bWVuLiAgVGhlIHJlbWFpbmlu WoAnsOF0aqRlFOU4kxQzE6Yt rACoolQyYY1pwt8mptNccwUn m53eu6LjKje+XTTiBIUikN1j YUqdFUKqfhulvUv0CVWvC8Jv e48hLDZ0dnZpGNDsFMbgZBIw XqWrtTKuCcXylQXaUoIbP47c aWxsLWRlZmluZWQsIGdyYXkt uDLpUJUsaYUcBM5wf4Yhq7Yz exXcXV04SFJiKQLrWEFdbTU3 euDzcPjbrNDpzwNxPxftE59h AbAttRT7kOGoeCYwOF8qnGgx DJfxtTEpG5czAmGsTH0cWAEq CAVjUuElL18rSfOkaBQ2zAKt nBXvnbPaoqKqEVTvIxO4EFLg WOI1DFNcZHGipOZgmYzzWWUi pE0nVTficEOfzG82OGWdey8f he9gcAxyWNFbEOGriWJwCM1y ZLJhJDUtl27yxQtsRPLzvxPd F8d2oYWsVL4rmmcouwQarpEu QL69BJMsYWYsm44auSrrRBYn ZXVyYVxwYXJcflxwYXIgVGhl IHJlbWFpbmluZyBwYXJlbmNo jT8oYPjaQGTcLMGnnsNhr4He edo3IGSefCJtr4IppFR8pORf KDNaI4Lon06jRGsdTJLrRKOw sLusEZn2LWIyjjVzr5NtsVk0 pQHlOfQqJ6Eoo5UobGmlfN7i joOsnBWvZFWeDQZzf9QuJdka VCZcmENoNRflyfRmg3ZcCsuv jW1iKDRexBP7LVUyCWYsWWrs SAGluPKsGZZoZ6Thv84iI88j YApxhzyfSGTiAPDeFUA5PLBz dGlyZSBtYXNzIHRvIHBsZXVy OYlnDPQvWVKyZER0SRXyuRUt g4KjyHD6lBHwVG2dZNVcYXFf BLGvDzEbxBL2lkIfKEJvSMJz k96giJfwUELSSxqrNwIcflDr LM76NQHujtHvg1Aiu4Ylo18q PABmOHOyo8HlqXpmwAAjeMKg JHiny1suurAfiJRwMCW3KwLi VCReQZQhc3BhAjjdfs5reQWg uIphVIKJFKusO6Ugw95wVJOv DNLdb5AwrLhooISjnRGklPQb e0Grp1vkQGTfERejMyLlDlFv A59qwJZbrZ13CI3lOONnDQba YHGqY9IeDPRaJYW9NEZwz5Zv z2GqnCVdCS9vaSenOJiqaCEt I6whMCNnCR1mo0MwAZRoJLLt X5HmzMzaFTLRSZM7DLRuh1Py s4AubZMuKS4ypFebLNyriRVv P8qnPJHfGU3yCURkHPanLV7x ZmFjZVxwYXIgRDEyOiBBcmVh MC0wCEJjEWFdLKjfL89bR0Qp dGlvblxwYXIgRDEzLUQgMTQg ItU3dmqsdw4ptxAwIHBtvxXh Q8p5gFEbtZCyJEQdrnFPdTEi v7WmUHqeMPSsMNRLAIBcKRFJ CCaOJ1KFWYMvk1vsnKxsr9Qc pSLuZN29HDYouLTgCVP4XC5q fVxwYXJ9 MICROSCOPIC h7pnfYYbACSvtDW9ZlVuMPKe DESCRIPTION (test o9reh4NtgPWjqARnXInexCIr code = 3371) rzSiih60xMH9dB03BJ6kDNVp ElY8SYBzhqU6Pzd2YUZkMAMb eWEkW274e6bgg2jjrdYyyGY8 mEfqGYVmhticGqM1WBpnCDBb ftahRLs5ARynBJFmsHS6NJCa cNJaC4QfIPXoMY2iyok4UTC5 ZFbeGFYaMsM8RWPddJSrXLXp yBzsIExhm089OGX1FpYsRBEu wlQtxKnpuL0eWsYbHZPRSYZf c8InRPFwPUMzvnoaJUFkHIPw cn0= [facility] [id number] 08:58:34 Test Item Value Reference Range Interpretation Comments Case Report (test Surgical Pathology code = 104) Report Case: [id number] Authorizing Provider: Ernie Washington MD Collected: 07/15/2022 09:20 AM Ordering Location: [facility] Received: 07/15/2022 11:36 AM PERIOPERATIVE SERVICES Pathologist: Willian Restrepo MD Specimens: A) - Lymph Node, Pulmonary Ligament, Station 9, station 9 B) - Lymph Node, Interlobar, Right, Station 11R, station 11 C) - Lymph Node, Hilar, Right, Station 10R, station 10 D) - Lung, Right Upper Lobe, anterior lobe segment ADDENDUM 2 (test code b8enuVLpBDPfkAV2RwKrJSMc = 3382) d0hll7KtyOAkwEJiILffwHJp bfZvpk37lVC8mR90AF5cCGKa TqN3GCAjdiY8Nsx5NSIhNYYw nZVeK190e3ate6beimRswPQ3 gLfiVNZqbuvhYkF5CHxhVMHq tcxdKZs2DVszTZLykDT4TNVl sXTuR8OgNBOeQB0cqio4KZV3 VChyHOJyKpC6VQVhtTCdWRSe kKrhQUtjk799MVA8TtBcYVIo ovGocWzosR0uZlQuMQZMsSyg SZTySLNvRBPzNYpxEVWflO5l NNveo6MrLNQ6nmXuSUOhnsFq jhEbwDs0icBoQkJIP0PRRK57 mIH9xD7fUWQyb2CobbijkRPi Jq2ndQPwMOW4PX3dn8sibm8y wGQyIKvcEx8iGIEsnwpthb0j bEHlZQMttzPCJXICZDB7EXhc YXIgRUdGUiBNVVRBVElPTjog Tp1ZINPWVMASNFBIRPZfubxq YXIgUGxlYXNlIHNlZSBhdHRh D5reRUJoL6HfkkNlNNIufZ7t iSWii6ZkVzIwtAafvtPtQZCe aWxzLlxwYXJ9 ADDENDUM (test code = p4yanFJgWITwzOG7LaHzDHCc 3381) a1wbc6MrbOBlaMVsNVvsjOVt buAmje96kLH3qM00RC7lPWIl NqY8IQWghdE4Rqv8SCLuOEVf hGYsR666m4kdd4avldDhmZU8 qJnmEVHuaizvWbV9DKmsEKXn vfmkDKz8UBlfUPPvoGY7CJTr kWRsR8QbEMJqGC2wlzv0PEV5 CZygXBFuByJ8XJCfhHYmZSAs vYubFXuzp815XFW9WkSxPHRo qkNnpAgyiN4sMwThIAMXkWir XSCxJEMqGLFjXEffGCKjeM8m FIlge8FgUCP5gfBwNOKyfiNt gScqSNUex2QhnCAha0HtJKDG QUJmfA2tiD8fl8XhoW7wsIKl Ej1olSFxZNJ9IU2sz7bdig5y fVMfFBgmSm8tPSSeygbdrw0h cGFyXHBhciBQREwtMSAoMjJD OwJiwP6fHPt8AYTJXAVRR8LP KEOjsCFtXWIHTaXEC31GOSta OTAlXHBhciBJTlRFTlNJVFk6 IDIrXHBhclxwYXIgUGxlYXNl GINdNrKhLWYwOSZ8bRKdlOUe RCTmDM7dBSDhfiHrd0D9CMBm vjUfgRX8cHTbSPBwf6GfmTGj IFxwYXJ9 DIAGNOSIS (test code u7yeaMMgAZIxn3hmMGQokDGm = 3220) ZzEwMzNcZnRuYmpcdWMxIHtc cnRmMVxlcGljOTYwMlxhbnNp AADomAPgZ2ZewrfpXDyyGN2h VI3yaNjrkTFaqCWbVFVuSdTc k0bta366dYBvb6sxPAXTasfe tIl0vCowP88yt5Y5VcktQ6yq BNW8OFlxitFodtHzDPBmaRC5 TWtnrcLjFLDuK8MyUW0qERpx zQWrZXZ5jAsjQNRqtsgbIoM8 UHzyICHnalmoSUl6MPzgTREe rNX4GOXfeOCiG5OcHYUzJE4y dth8ZPC0VIbsSPDtFmK8FNEn dALnXAKdkXdnJQxtl604JXY5 QuJwCTLebzWziYuvkK4dCpDx IFlvHcCyRQ4zJDkDONdxVd1R QHlkVJMZRV6QWJDEGYvXX1MN TM6SWKHXJHSUBZ2DWTblRRPX D4zHOE8KCeohQIKjO2YmDTIf ICBPTkUgQkVOSUdOIExZTVBI KY9YCCPmBCKcMBoxhKOhLHEx krDldXUtMVOzEUUONfOFPA8O SEMNL6LKCAXSDvXYYiqVMkLZ TRKPMUFLFX4UTIBaZuxlUXzD GRAKR151YEKhotvsOoOxIO8q YG0KDWHABR0ZU51bTOcJFHfo Gv0XGRLrNA7fDRqbMZAazVNj JIziLnAurOZfKNDmHYXZVQ6L GWBGZ2HSDDNMKVpZJahzW8EB DIlDRgYuBHMvNSYXO3nPPK9W CjayEPXyM7FuEYNoLTENQuJj IkPWZPpRQGwVBEUNVP3ZOHGn YEToQSulhASpPEIlryJbB4Ym ZRCpbgYSBkBBAD0ZYCSPBDgG RZNKSUZDCgGOS4VSGLAOAlWV YpdLVqMKR7YEVYYQK28OXqAu CUOJW98ZNiLWO8DDSZb5PKKn fkjuMfPftw8uNO2FDlOWO0eU BEUOUNMUU8HAUbOOHe5ENNpt SZ4NAjmACDYSXdZEKkNPLBqZ VEVEXHBhclx+QMYiomnMO0UH SDQEAB9YJ0zFBmXUIFNYAkFN X9uVJYSfTLSzTDkgPGVMQkZS ICgyMCUpXHBhclx+LSBcflRV ZR9MMF3FNXLDJkZVYYQwLSIL ZIFSJxQOLsTLAXMHWGRLSK7L AvGIM59evQCgZX5zGHp+Tk8g GgaAC1BXGWasEDyOLBIJGAOR MtBBB3mBEoCQHvGHTFRKRUhJ SUVEXHBhclx+KLObzi8HUTmO OJEYV1FRY6TYGEVRCCmCSuJQ LM9QJHdWVImJKY5IZJSNEMUd mSMdQX9dSBp+HIMAXT5CZEsG TXpeChAMMTRSSZ3QRI7PQckD LmsbMkHGPNFCAzWhBy1NAR2C MMcJBaTSS3uySSTpXNTKYUPR U7GXPCohMVDyLP3aIXXROZOH GPhwUUAYTNTAC10YIWGfuuIw HAFcOOAVCOrWWZtmOFWMUz9D QVRPVVMgSFlQRVJQTEFTSUEg EK2sQSyOOIZUJ4yBPv5OEgKz mVBjHK4zPXs+VQIDPG5EN6bM TrWMXCCQRU1DDkPtTXTdYkJG tYSoIMtCPgY1nZnwYTJfESzb VTX8v4bkyDZwQEMedDQoQHRn MFxhbnNpXGRlZmxhbmcxMDMz WYP0ydUeWAShJLkfECMiXZfp Jd1neDZxsGmhZvUvWZXkm7tr wuYZvrvmhXd5r3fvXWMhFtZ0 rGRyVEcvF4pghvFwyGEhIRPx NYy4vU46XBUaaQ1goOHwWOng zlTjVvS1ANkuRZEdEvZ6KZPt bFFoFEDuG8ejKIGtIMjcBXQz QFmxlRGhFPU5pBjsn7E7lUAl vBTalZgpZpQlXnHnUpOYf8Kb ALj4wYciH2MtAUSsWrP1gUHz BPYlMFbvIGDoSZEzugF1uL91 EUmrlqF8jOEkj8Naq85vr651 hO8rfUMqVYE8IIXyAZZjhHZu NLGbTVS3TSXibXYoJ8xxFOUd BA4catuhTKkxWKfxXXXbcRZ3 GKQbjSPyD2AkFJPiGRpnBJMl nge5IzVzHy8aqFDvbMpkVEmm t9yzx4mnfBOsEkb6SPGeXpXa KopoWTmzo8Ihe7ppZEQlpx9r WGA9nGMnsJaqr2P2xSJoPCCx yARiQDVpVK0npWZjJMUvyN8t cmxjXHBnYnJkcmhlYWRccGdi ljDiVb6gdKuhGSK1OZpfQ4cl tJ3sLoR3NEcaD0gguX9wDCn9 FYpgGIQpdZM5wnP3LHYmpKZb C3LbcP9qGEBpUD6wfir4a6se TPD6SXamTMEwKxP9qhJ0ODPh oHGsJHYqwOzxAErcb272SJG7 GsOnPQHxj4SqL3PcrTptS18s yJiaK53sAKTuyFhlhF9fyImr dS5nYaBlHsQnBIkufDnmIO0s ROCiU5zfkTYgIEDlQBTyQ5jp PpZquV1doKcvJSnvyjLjOOUi Enb7NKHgpNGzDQUcRqr2JENl RGMtW48ajvtnFNN8mO0jh6qw i6NdCGrqSEA9GFLhw03mGDgs sfY9YJycQy2oFoYuAKJ0YUsm YXJ9fQ== COMMENT (test code = z2gjnNXwUUKpsAL6XvAlJVQh 3359) v5njl4BndGGoqDSoLEsdhSCb qpVrnj35aYM2mA98JC3hQDFz NjK7BLMtakQ5Ukh6RKDbAQQu sGHjN259p5icu0gzknIatKX5 zSgxACBlymbkHtQ6RAauXFFn bqkiDXv4SZqsCAPgvQZ1KZRx uSFpQ9BlSBPrAP5tnno4RPQ6 GGswCTRqFkW3NDNuoIRaEDOr rHmxOHvbj219OBG8NaDzTVQo xsFvqPiysM9sBkWhRGAEbP8v YVVyITAbd4D1XEb8VUMtofTX sB8nimqwKSTwtHToYE4ygy7k tZsnTKP0PSPphttuZKBrWGNn z7Hko2mvtVBwEEAdEI24IIVy RK2vj8tinp7hgDKcBKYrkeAt qU4xWADgQONbuHTikSvdPz3s AnLfpOc9cuG4dLjnHASyOJMj xV5zwDMvWWpaYJTiCQTgFQUi ZHVtLiBccGFyfQ== SYNOPTIC REPORT (test LUNGLUNG: RESECTION - code = 5765) All Bgkjtkxjv7vz Edition - Protocol posted: 04/09/2022 SPECIMEN Procedure: Segmentectomy Specimen Laterality: Right TUMOR Tumor Focality: Single focus Tumor Site: Upper lobe of lung Tumor Size: Total Tumor Size (size of entire tumor): Greatest Dimension (Centimeters): 1 cm Additional Dimension (Centimeters): 1 cm Additional Dimension (Centimeters): 1 cm Histologic Type: Invasive solid adenocarcinoma Histologic Patterns Present: Acinar: 20 Histologic Patterns Present: Solid: 80 Histologic Grade: G3, poorly differentiated Visceral Pleura Invasion: Not identified Direct Invasion of Adjacent Structures: Not identified Treatment Effect: No known presurgical therapy Lymphovascular Invasion: Not identified MARGINS Margin Status for Invasive Carcinoma: All margins negative for invasive carcinoma Closest Margin(s) to Invasive Carcinoma: Parenchymal Distance from Invasive Carcinoma to Closest Margin: 2.8 cm Margin Status for Non-Invasive Tumor: Not applicable REGIONAL LYMPH NODES Lymph Node(s) from Prior Procedures: No known prior lymph node sampling performed Regional Lymph Node Status: : All regional lymph nodes negative for tumor Number of Lymph Nodes Examined: 3 Dusty Site(s) Examined: 9R: Pulmonary ligament Dusty Site(s) Examined: 10R: Hilar Dusty Site(s) Examined: 11R: Interlobar DISTANT METASTASIS PATHOLOGIC STAGE CLASSIFICATION (pTNM, AJCC 8th Edition) The suffix m (or a specific number) should only be used in the setting of multifocal ground-glass / lepidic nodules that histologically present as adenocarcinomas with prominent lepidic component or multifocal tumors of same histologic type that are too numerous for individual separate synoptic report and that are not better classified as intrapulmonary metastases (e.g. numerous carcinoid tumors). Multiple primary lung cancers showing different histologic type or different morphology based on comprehensive histologic subtyping are better staged as independent tumors without m suffix. pT Category: pT1a pN Category: pN0 ADDITIONAL FINDINGS Additional Findings: Atypical adenomatous hyperplasia CPT Code(s) (test d3jxbWSyNRFruWZ5CxMlQBEg code = 3357) k7kls1HvuRCkdQHfDGdcsIAb diAzkq02uBB0oS08RD2bQRNu EuP4IRKmhiS6Ukv6QHWkCBYf wKCuI260l4yvm2vgkuOjbQO4 xGfiAGCmmhshWsJ9WLucYAXl klmkNSo5UWtpBDYcsNL0FLBp zMUjS5NsJHZtIT3riow7VRQ1 NCutMCWkQqO0RSXymLKuNDFg fXflTDqyd161KDW1GvCiDYRn qcOeiJwynJ6fRzLnNBP9PGQe VLyhPNWcZMgaYGUAV7eyZVC0 CLINICAL HISTORY u0wsvGNaUIUnbRK8EsLsLYSx (test code = 3356) d6zbt1WojJMmiGGpLGsppIHe fbHegh03eKM1jB81GM1yVWMy KjL6ADThpzC3Uhs1TKEnYQWd sEKqK591f7uip1windDptOJ7 hPyoSACozfijHiS8LVsuAJAo btazZWm6EZubZNMvnUB6BSDk oXKeM3FhVLSdYD8ccku6OZD7 VIdvJNVkRgU0PXWzhVKdXBHm cQlkXBcxe808MKC8DfXdZNLh nhPreLaenQ1dMwJeMKEBUUNf r9MzigYqih4yTULpnDuktWYe dN9jCJHdlh7= GROSS DESCRIPTION r3jnvZPgZPUxjXU7QzFcCZSn (test code = f8kbd0MebAOfkYBrGCidgTLl [id number]) nrWibp18fGS1aU45WS2fIVFs KgC5LUYkkwZ9Hxu1KUXqRKUw vLWyG832i1mlc6ayopYxtNV1 BAHfWVXbV4YtDX0uUNEvxHXi E86afUDvBQZ8XBIiWFRjiESo UZDkSWO2ZXRpbGTmX0eeNYMl ND6vbjwqJXfkSDseOMGibEV2 HGPtiUHhQ9IlRALmDFawPCBo gqt5CwFbQy7kdOUzbGxkSZpe NXMku5oiSEOguNRaQEN1YWiz qLCoVACjVWYbWQt8ZIGsMSop nYLySA8nmBpsKykimOpiz0Nz dCBcXGlkIDUxMDAyIFxcZGIg S7POMUBxBOGjUCBnELAiCPf8 POhvV2MJOHOpSWQhDpo8Wck7 NsN6LBr1VRCMRt2vJuX7JUh7 MwH7LOH2AHNwXScepFWjYFlw ZmwgXFxmIEFyaWFsIFxcbmN9 TPKjJMvrJGSyYjSqGN0uGGht aVfeUd8dXDgdTBIlmZ4qDAS8 MEdxW6EjPI49JPTDsIU7tR2j NNdaCVFsaomywfOhSHBcR6Gn dmVkIGZyZXNoIGxhYmVsZWQg e8f4wQP9cOWdgMU5cPLpgIkk DsKnZB1sgEBvLS8iBArcQDkj yuYai1WwJO94dIJrlyWjncGl RiN6CPVpq23iEZOqnTGjMAUm IfEpL30lJG78iZLsB107oCGd dLmcpMnvbh2vAALrjDPubZX4 OZCjcI3imD25zxKydgNGJU83 JPPfcMMxHGM2AE0iZPXtaouj TVJkAHKsLOL7NEljeB10xFZk XGZzMTZccGFyfXtcKlxlcGlj z4DiqSDcVLtsWJRuXPGmXXaa CNBsE8FKOFFrSNUbURGgHPAh QWe5QHqiM0LYCWIvDWToOvz5 BDW1OtC3ZQr0XIVREw5yUkG3 JFm5WeW2HST9VQNmWUfjbXUj IFxcZmwgXFxmIEFyaWFsIFxc woF6LAYeCxVvLq0rDUufiSbf Gj1sMCgbVF99CPOxh6Djjbic GxfqjLJfGXN6LDHzi50eDBWD LlxwYXJcZnMyMCBSZWNlaXZl ZCBmcmVzaCBsYWJlbGVkIHdp bUcgiPshAROzrQawhhAlA3Y3 xyVcDS8iMLJsREDvJ3OjTSZo T68uORNuzH6kIEBzWV5qJYOf aLW5sF7xXOBuNrEwglMdFSSa XAArhAUwndVwhzQlt7QdOcSp bC7jrKPzo2EtFAR9Zy1dqSRx IADygjB2d1UoUFfoCUYdOira YQAcS6VaM4TwvzIknYQaMAMz tpQsx6ixSPK2KGNvkHEagFGn UpZlJsssTCR7a0twDEAjiYYn RKE1ZJncjZLsJDBiYIGfCGnl VvEFEvOjUuL7ATB7CDB7HrO6 SVo2PDTGXbWbHfCzDfDjHhWt SnItKYq1VHu2TNoIYeH6GCf5 HFCwVHAbEYGpRLMnAAb1BLAm XFxmbCBcXGYgQXJpYWwgXFxu Q74tVjHeZXWXAdAOoX8pwKZM q7UnNNYWzTxifiijIyuosYYv CJJ5OCOlb75tNHLHHfmbRDCf ZnMyMCBSZWNlaXZlZCBmcmVz aCBsYWJlbGVkIHdpdGggdGhl CDVfiBwtplXtC0C4ioZrHY8e WUNhISYsA0NbMGQfQ33hQHXz uJ5aQGNyRG7vUAWjgUC7tL6w IDEwIiBpcyBhIDAuNCBjbSBh ptIucoOvw9NrWeOdbG9pfBDa l9VqNFQwDCayZD41ARVhjT99 geLvvXFmGAHvv8NzeHd7hSJs BJwmOSRsyH8goW6wAzAfi2lx iZywg1GezKLxPZtkTLGwuDMx HDsdjL3kLpDfw9jdqQj6POby ndD8BNDwtq77QYbjBHJeB1Tj Y8GoUGzkXEP3IEPhIxJvDDHo LY2PLnPfYKYpClZcEOYxRGl9 VXx5GT1BVkUkCMZiEGF5QTi2 VHAoFJx8PBiwWZ0EFIWbPly2 FjmnZXC5LUQ2CzJkHEFnPeXc ERBrSRhpEiTOstjhxMNbAG2w hFygvgCtNSKpVMl5jxplDJVc M2k7QARxaTTtXIjoKwXzEHQt clxmczIwXGNmMSBSZWNlaXZl ZCBmcmVzaCBsYWJlbGVkIHdp dGggdGhlIHBhdGllbnQncyBu EW8yOJKUUr0oVV3fGIx6cnco RQUtR4g5GVTfrJEkRHtxIjRp IGlzIGEgNTcgZywgMTUuNSB4 KBDgBRB9XFAuRNMkpLOfzB8c PWJiN13mqgOeL5GsqLnnWXNr cGFyXHBhciBUaGUgcGxldXJh BKWyg8LcMRsuWIMuHBAbPNWj a9GgAIHtHOFds88xAWOjQVSd UQznIYTwCEPbFJ5xBOMlOqAr u6dlRWUghxBoXI8bTQDeIPHj UsWeh55qWKK8kF0hFSM2FA5v TKCmwcWxp0EiwKdnTLYvOMRc bWVuLiAgVGhlIHJlbWFpbmlu ZoVovHO4mtXeHCX8kjXuJ4Fc eQHluySeLX4dfn4gfjMewnKg f12sg1QuExg+AQUcHXHnbL6x MZdcXLJwxpcppDp7BMBuU8Jg p01xAGH5xwGeRWLqZAmkJANd EiGnnHOzDyTczHLrMtNnU36a aWxsLWRlZmluZWQsIGdyYXkt mGMpVZHozZIsSQ8wk6Ldu8Hn acWdLL40GVTeGVPwPLGfeYL4 soWppFhyiHUhjpLiKygcY05z JqQemPG6vXIhtDJrBM7rtZrs PQsobDAtK4ibMpJbXY6pCTBi OQDkPiFwS30sPuQnoYK2iYGu aTSuliPyfuDoCRJdSpM8WBHe FED5WTRaSNResNAwdOnpXTAi aZ1wKGtsbUQfeT11XHNqdz0w eo0xlVkfEIUlTFElnWKbBN7n COXqHEQkg73sqEhxATKahlGa H4t6oDVxYO1dpbuiwyZcwjDk GX48JZHbNEJmp11tcLmfEZFe ZXVyYVxwYXJcflxwYXIgVGhl IHJlbWFpbmluZyBwYXJlbmNo eW1fGAoeNFYvMQLcwxAwh5Nb idm4KVKoaBCal9DwnJF7iNBk UVZjD2Ehw70kOTvmACFsGGWg aDghKJy0HGNbqsYwq6SswCs1 nMGxUzQmP3Xdm3RplIjxdP4s jqMghNOhHXKkXXZrw6EtTonu VFHtgENkNVoydtEvm2ZmIhxb dB7mOVMwfWG8SSSbOHGyUNau ROXdmBGoWXQkR9Oym21aJ89b QUshrqlbWQRjINHbROT5MWDl dGlyZSBtYXNzIHRvIHBsZXVy JBveAJRpKDEuOYM8HYQfpQJl v5TwfMP7rXXsDO0sIEJaFXGc JXEoMcCveEU3qrZwMEOwQMEe m61qdAdyVVUCMmbnMxTtlzMk LF35RHAtlhUsb7Zek5Xwo51u QMEqLVYzi2PenVwyeQUhtPQo HYbkd6txhhIcqILcWTE9JlEa FBTmPDHzd0DpVrsrzo9qgKLb tWedJBVTUZaqM6Oow23mPFZk XGPtt9HerZpquRLcuIClqCFt a8Pxl8raNSDjNSgpBfBlSiLf A98uiNNpoB74PL9zELFwWQun WQNrG2LrQJWsOXQ0SXRbz4Uu q9VsxKIqIT9jaRyuTCnhlWIy L4kzSKMwCA6on1RdUFTtFNDw O5HnaLfrNELQQEB2MNWnt0Hy s9GxvKOjOM2pqAzgMFzvaBGh Y3gaVPYyYM9zJPKfCBjqIM3x ZmFjZVxwYXIgRDEyOiBBcmVh SZ0oDCGzXBBvHSdqP01rC6Tu dGlvblxwYXIgRDEzLUQgMTQg AwJ6ufpalh5kaoZoICVgdzFd A6x1hULqlZPxNARoufBLbWOc i4DeRLpeNJTeGVUNOTCiRENB VWoVP4MJRXQtz4blaRidz2Qd cWKvRR77NZFjcRUnITG2EJ1v fVxwYXJ9 MICROSCOPIC t1fkyBMkWUSxjIZ7HdYlTMLj DESCRIPTION (test q6rjk0CekCFssEIgVOgynPNc code = 3371) nvQtgl08yTZ1vC09VF9zPKXk UrK3YBJpdzH7Qjx8ZEFaQHLg mVQbY061o5nsg7uqfdVfuBE7 dZeiCMQxlusoRwX3BImnGUVw bdlwXIc9SDcyRTFnxEG9JIQq fOOhI6YxSKOsXZ6gmoy7ELA7 NGouCCMcCqY1LMNvrWAkVVXb oNlzIJuyc465RJE0MkRkWTHt brPuaJhneD6rUbNoXUOFJXXy o3HhDMBmGPZnlsnhRCAzGZLz cn0= [facility] [id number] 08:58:34 Test Item Value Reference Range Interpretation Comments Case Report (test Surgical Pathology code = 104) Report Case: [id number] Authorizing Provider: Ernie Washington MD Collected: 07/15/2022 09:20 AM Ordering Location: [facility] Received: 07/15/2022 11:36 AM PERIOPERATIVE SERVICES Pathologist: Willian Restrepo MD Specimens: A) - Lymph Node, Pulmonary Ligament, Station 9, station 9 B) - Lymph Node, Interlobar, Right, Station 11R, station 11 C) - Lymph Node, Hilar, Right, Station 10R, station 10 D) - Lung, Right Upper Lobe, anterior lobe segment ADDENDUM 2 (test code k4acqVDiHYUhxQP9BkZkFDDp = 3382) e1bsq6ZigGYlqLQqSRtwmJDh rkEhpe17rJW9jO65BW9aTRMk JdB6DBAozyF1Gtg0WKCgCWSb yKOnR883e4hkw4gyfkKgsZL6 eNnpINAvzpwcLxA5IWqsUSRu xsrcSAy7ZRqcTKJcgAY5ZZXo kKIsW1EmAFYmZL7auuj6SRQ1 FKfsCGGfRfI9JCIliZUfRETr bTvtHPfnv188PKK0BkOeAGJf wgKvvGdrbJ2zMvNkEEXMiIsi FHQvNAWbFWXvZSxjDOLiwI3w TTuwi1FdTCR5bsVhWIDpmlUf jpEbrBq5ggTmGcUJC4QPHD81 kVM4gR2oFLEwx2GqzoxjvIKr Oj8qcWAiUBZ5XQ7mj4dypm3n xQDnXSfgYs7yHCKdaofukx1i aKSjFASfwbLWIZXBKNP4HLgi YXIgRUdGUiBNVVRBVElPTjog Uq7FHOOKIXMZPSADFEZkzhtp YXIgUGxlYXNlIHNlZSBhdHRh X2xjVRHlG2ZbvyAqQJPkdL0k vGFnt4NwSbPagDhyokFvGHPf aWxzLlxwYXJ9 ADDENDUM (test code = v7oniTIwIZHhjJC9DaYePFTm 3381) f5pku6YbbHQlwFSbBEwumQBi wzJvgk96oUE3kO14GZ2jUCBp GjT2LQYlkhF1Cbd2HLPdJUIa xWVcE053x0kpe9tsvtUwtEC2 tBrjFOColsdrBkD2KMcjJJEg yqkbSMt6KFxbMCGboVX7HETc hVZgR7HnDKMiUJ6xzlt0WEY4 TEemKFWyJwN2FRQitIFbJNXm kOsdVSacj648UGK0QjQkOOPt gaQagKzrbU4iFlKaNUDUqAxm DKSoLBKlMWYpSEchEMNhyR1k MEcoj9BgIAP4flNgJGRqfuSh hMqfMUJbg5XruVBvx5DvLYWH DXJcoC5xcP6nx8JnyE8kkSEs Ne9lvCIxILP2YO6bb4ocpg5g aJJkOUulKq1nPRLescbkth2z cGFyXHBhciBQREwtMSAoMjJD WpNyjV8yWLk3NYGKIYZQV3RI EHQmtZUvCKUHFrRLQ99RMEuc OTAlXHBhciBJTlRFTlNJVFk6 IDIrXHBhclxwYXIgUGxlYXNl KRLcGkOlJYCrGKE6bALqrOVz ZYHjMV8zUVXsqhZmn6R6VBQd saGzcBT2hDEeXHVqa5UebCUx IFxwYXJ9 DIAGNOSIS (test code u1kmlDGpREErl3dkVQVdiTGq = 3220) ZzEwMzNcZnRuYmpcdWMxIHtc cnRmMVxlcGljOTYwMlxhbnNp LPVnlXSnQ3AbidolVChsNE2s TQ9yvVnluTYueVFpGEEwSpJx w0bbw675rKLre5pzIEXFrcwp yKz5fQjvT05uv1U5DeyhG3nk GTI1MWbmvxYoojPmKDMbvGL4 VWhctiNpIZJyQ1MwWQ0zWNgr tYPcYJP5eDtjICPqlhhlMlO3 SUkiCGLinerqDMs1CPxjGCRe xRC9ZIOoyUApU9EeXPTdQG2r frq7XNE2ZMlyQSIoVzX9KIVb eDCgVJBlsProJAczq202XQW5 JkKmKGEnkmDdpWdyrO0zAiXx PKjhEtMxHN2xPOkEGSraXv3T RDjhFCPMRE9GFTTBZBeWC4IY WH5OWHGOHJUYDX6YZGpaBVCJ N4jQPN2LMseqCORrA2TpGATp ICBPTkUgQkVOSUdOIExZTVBI DU1RVBSbABCpEVvnfHTxVLUe egSygBIqARWkMFHRXyFBOP4M FYUXJ1WBSMQSNhOEKvpJKoOH EHXYTMCKNV1VPKPlGeffOJlY CSGJB227YTTodnfvFkNhAH0l DK2JDQMRIZ1SN29vMSqCIVrf Xp7ZXPGtNT3xOIieYDBufQDu ZKscEfYnlJEhHRUvVZBUSA2M JTFFQ8KHWFOJRLzJKoruM8CZ WAaZOeKmUDFhAUSCF3xWNN8G NigfPTTaF6ZwPRQfJIHVCxBv TmLQKFoZHJvPFEYACE5YXVEc KAOmQYzvtPOoDJRiyxXiW9Nx DMXnzcCRGkJQBP6IXVKAWCnI GWNNYWCPJuAZK5JRDECZDgJN KapEIgSRE1UHVPDFZ63QCyOy UKRGD02YFiFQH4WLBKe1VOAh ffkuDwLbpg8eVO4VFsMMT8jM RVKNJSUQH9ZFWfYHHf2UVBjq YG7EOuxDHCNJIuLTKsLZUHvE VEVEXHBhclx+NAUixkvSO9MS HCFLOQ2TR6vQDsAHWBGMNqAB R3bNMAEvWMVwPBxyCDKJGtSC ICgyMCUpXHBhclx+LSBcflRV AL7XHR1OYPVNKzBPYQUkTMDQ CNKZAuVOJtBSYHDLNPADXV6X IxREC39qbNSgSJ9fNVu+Tk8g UkyOF7QVMVjtZHeCVIRGSTBN YeAFO3wOMoBYWvQLSSGNPXvM SUVEXHBhclx+ZSYjmm5CSIkI JIIVF4UJQ7RTURZDLBqYQoPC XO2LOZvHYMwJMS2ASZGGYASj lFOmVE6bNQy+IIYMUF2YOMqU IUjwFfZGQOFLSU4CFM4ALhxV PlarPmFCHGVOIdIqLl3PWR1C ALmTZiXQZ6itRROwCUJLKZBU D3SIOWgvQEGsVY6qXNNXKRIK JLamTDDRXENGM85JWXLjwmYv LDCiDDXMTUeTOUmrJTZZLd9A QVRPVVMgSFlQRVJQTEFTSUEg ZE3uGVqABDSTX3fMGu9AOoMk fCEzRM4gDAv+EHMPDB1BT7jX GoFFRJHKTL7FHsEoYNGpNzRE eMJkPBmRCqM7vUomNBVtJHrd JVS0t1zaeQDqIUFetLUgQSZk MFxhbnNpXGRlZmxhbmcxMDMz IZG1abNiZFIeMOliFLLbKKgm Ur1wmBBknPzcTwWoUFMhi0tw zmYRtadiwOf7j7qmWDNqXaO0 rGOmHWlwY1xpxhRkgLRsMBIy AIp2lL75ZCTibE7cyOVwRGnb kqBwOiL5TBvqFDZeZmV7HXWj nJJtKLXfK4rjFFYaBVseFKTj AKjpeUWmUKX3rYbzn5O4aHKd nDXfzDzkKtOjVrTuAkKUw9Vv UKd8wThnU0QsPUQcPyL7pDQi FZJtEQkgIVZmOGGtpsG5rZ64 MIhohcK3mNIsd4Agg28py338 jP3xkYBeQPV3XATiHXUejMPa OVXtAQV1VLYusYDiA2fcSCLi XA0kfmknDPqpHQunBYEngBA0 HDOtmHMtD0VmMVOcIDblSMXv say9TwFjUp9vuTErvUnoGOui p2pxl1xxmNEzTlx9ACPlFfGx ClbbQGhfh1Spx9zwDVNdpa1t VQD7sJNdoWkcb7M1rLNuZTEw gXCmHIRoEV5evYEtPSIhsO7y cmxjXHBnYnJkcmhlYWRccGdi jhLuXb8fmOlxBCY9WBwuF6hx aL8wGbJ0MCfpE3worG7uLZr0 NRuiWJUdyPZ0wkW1DRAroHQw G9SuzW3yHPJbPA3wpgn0h0tu GIB9UDqdANYbTcK7whA5ZDUd jWXjPSIgfCysIAdol646GDG7 HzAkXOLgj2NzH2XoeYrcK58s uKxbM26rJRDyaQqpdY6ugYat tY3iXxXgTfPyJIlyoBirDL8o ROTsX8btqNCaMGKnMZZgX2aj RsQjhP3gyAqiNQkfkdLwBGJa Lav0LCHcpDLnRLGiIqt1FSBs EBOpT74mdtjeZNY4zE8ra5tq j7JnZIhfQMK3FQUjp95eAFuq mcU5AXvbSe9nTiFeNQY0EVal YXJ9fQ== COMMENT (test code = a4hogJCvRXIioFY3QuDoYAId 3359) a6tjw0QazMEkiCKgIGxzxILt gjTgoc62aHO4pA11AC0tCYSr RqC5MQWpqoY6Acm5WTVtHTKm fWHfK762m8qca2ryxqRcrQP5 dCqzEFLniwloNaN1HRmwZXIy cagiLOh7IUuqCOBucVL0FPBa hSHfX5WmVQTsGQ4jxsx8XIZ6 HCkkSRIuYaU9LXBrhHYhPPRx cDpzUEubn179FRI4SrMcWTAj lzVijMpeaV4gAuXhDMTAnI2h VKKoFYVda4C3EVt7ZOOtzvRF xV1snvdpSAKgsIJbUU1goj6i iUzmLQD5WQLgeirtIHQbUBXn g3Mss8nxaCOfKRKfLA40WHAp DX6al9aibt1vsTZnTJGsytVt qQ1sZIBzFCZofWZfxPboRw1z IkCreVk3mwB1vIobTJFjJHRx dB4mlWBbLIevFXWtFGBpYQPd ZHVtLiBccGFyfQ== SYNOPTIC REPORT (test LUNGLUNG: RESECTION - code = 5765) All Vhopscgpj1bg Edition - Protocol posted: 04/09/2022 SPECIMEN Procedure: Segmentectomy Specimen Laterality: Right TUMOR Tumor Focality: Single focus Tumor Site: Upper lobe of lung Tumor Size: Total Tumor Size (size of entire tumor): Greatest Dimension (Centimeters): 1 cm Additional Dimension (Centimeters): 1 cm Additional Dimension (Centimeters): 1 cm Histologic Type: Invasive solid adenocarcinoma Histologic Patterns Present: Acinar: 20 Histologic Patterns Present: Solid: 80 Histologic Grade: G3, poorly differentiated Visceral Pleura Invasion: Not identified Direct Invasion of Adjacent Structures: Not identified Treatment Effect: No known presurgical therapy Lymphovascular Invasion: Not identified MARGINS Margin Status for Invasive Carcinoma: All margins negative for invasive carcinoma Closest Margin(s) to Invasive Carcinoma: Parenchymal Distance from Invasive Carcinoma to Closest Margin: 2.8 cm Margin Status for Non-Invasive Tumor: Not applicable REGIONAL LYMPH NODES Lymph Node(s) from Prior Procedures: No known prior lymph node sampling performed Regional Lymph Node Status: : All regional lymph nodes negative for tumor Number of Lymph Nodes Examined: 3 Dusty Site(s) Examined: 9R: Pulmonary ligament Dusty Site(s) Examined: 10R: Hilar Dusty Site(s) Examined: 11R: Interlobar DISTANT METASTASIS PATHOLOGIC STAGE CLASSIFICATION (pTNM, AJCC 8th Edition) The suffix m (or a specific number) should only be used in the setting of multifocal ground-glass / lepidic nodules that histologically present as adenocarcinomas with prominent lepidic component or multifocal tumors of same histologic type that are too numerous for individual separate synoptic report and that are not better classified as intrapulmonary metastases (e.g. numerous carcinoid tumors). Multiple primary lung cancers showing different histologic type or different morphology based on comprehensive histologic subtyping are better staged as independent tumors without m suffix. pT Category: pT1a pN Category: pN0 ADDITIONAL FINDINGS Additional Findings: Atypical adenomatous hyperplasia CPT Code(s) (test q7vbaPChMUWtkUZ7XjQhSFMh code = 3357) l4dpt9BapWKziRBtFSosxZMm guKfnp42gYQ7lX61XR8hNGVc WkO7ODYhkvJ0Sej4LKFkFLBf wAJhH733e7trq3ypmtTegHB6 wTmzRUPimliaDnF3VFgrXJIr xlbrUPz3RBluZRNwfSN7PPQs dMUsB1SaFIZuSO5thum2WQP7 HHdrYQWgZqN5NLQxeUEpZLSq mBcfXOhvz345AVT9YhSpNOOd rbNxmEhqkF6uZxTjPHZ5HNJr NBguSURnUZkmXXVQD8ugWHP9 CLINICAL HISTORY f8gcmALmOXLplKP9JwByWDIj (test code = 3356) h1crf3RvvYYamTLvICoplBHw kmJzxz19jNK7sO13MI6vOOSz NgL5OZVillF7Qsl9LEPlIIRg jIDgQ006y0zdx8rinsLxyQM0 iKooPOOddsxvKgS8JKxyHTXs uecuJYz3QWniUPHgrOK0BTMm zYBgU8YwWFYmWR4mkwq2CMY5 ZMmjXPIlSaY2VNReeOZaWZLy iYuaJMdft162YHY1CjNhNYPl zdFdqOgfoJ7iDmKmTFYQPOOb n7XwehMykj3jDTFqhMyslMVh iN6qQWVsik3= GROSS DESCRIPTION j7gktTVyZUYsiSY2KvRiQWWm (test code = b3xzs7EhdJOmvDXsKGbwlYRb [id number]) nwTdze89oMA9aI22CH0bCIWo WpU4FVRzswP3Hrr5UNCyJIKg nSGvD954x2ulo6gpkiEzaGK0 SEQiRQZbE6ZjLG9lEHXrgTUb H94fbWCxLJM3NSYzEMBfaPRu KRRuHEG8BIPeeYAaU3grPELu RS0uqeiyWNnnLFlpOHMhxLX9 OODuaPGhP2QzBZZeKOdrHXPe lmj9DpFnQm1saJVhrAxgKVqg UGPww7umHJBrkKFpNWG4QZhh nFSjXSOaUAOePDs4COFjQYqj oLQvXB2rxVgoQnephFspi0Tj dCBcXGlkIDUxMDAyIFxcZGIg S7RYGXIrCGYqRIKdRABmGCz8 EKjrX9ENBXOrNFPzZsd2Tvy8 PfI6RBd0QDORSr9wToD6LIw7 ZgS6NIG9WRAqWIsbvHTvGVzl ZmwgXFxmIEFyaWFsIFxcbmN9 KMTwZNquDZMnXqNvMX7kKNod wAskYt5bAKvuWGSmeV8gMOY0 NYoaJ4EqNQ72KSVBrUX2cA8z LGxcTHFusptvwyVlGYRmK0Ty dmVkIGZyZXNoIGxhYmVsZWQg o2g1tDV9uIBaaKK3lCGmqQfy QuCuQH4xoKUtQZ0tLZlrXTxo uqBjv9PeQX33hLIzddOmwrCu GmE3YMJjg37nUUZikKCtDZHp NiQyS57mHV54xTZgU983sFWl nAnmdQjgri0mFWOphFLxfTX4 QCRkvN2ziF65roHphuLULY77 QOMjpTMqMOF7FH1hMNZrqypd MVRuGXZhUSR5UVmvpR61iATj XGZzMTZccGFyfXtcKlxlcGlj j8CfyJVtAUmzBFOePAOcCMbh QLJhM3GXIQHvWPLhFATlADMr ADc0RThhK2FXXBRnFUNzQny6 EUQ1MoW6UDf5NFWEIo8hHtL3 HLl9EdY0MEK7BDMeXJwnzMVk IFxcZmwgXFxmIEFyaWFsIFxc inF6DBPfMuYdZx6tTUxveWqv Sb3zVCorML96UYQgg2Tkcpqf GcggwHIkOVW1ADFem42qNXEH LlxwYXJcZnMyMCBSZWNlaXZl ZCBmcmVzaCBsYWJlbGVkIHdp iVlxmKygYTChyZxtztJnE9P9 jcLlJK7qIKZbEVUoP7LtREWt B81zTGOjeS9nYYLbUM4cTNDs kQN5nI3fCHHxQtExvoHnLZSi XGLqdCXhkjFrahHjr1WxOpUu jG1qqVOtq2ZuBEW3Mc3ghRXa WWMfbdK4k1XkCPcqFJSmPeij THSiB5UbI9BkysMfuHGuMNTc qsOpb1slSZM2VJRdpKEodGKo TyEwXrdbBOB5m6eeZYFsfOIs IPG0QNrjjYFaIPXjRJEqNEoz WjGXXdRhHxB4UZR2QRI9YoB3 ZZp0UHAINpKaXfFfYqQfAkNi KgZwGCa2RHx8VOmYUsX3QUp9 MPHzDGHmNRJaPRYiWHb8UJNs XFxmbCBcXGYgQXJpYWwgXFxu F76nJyWyBOPKOoCKyI7wfMRJ h6VtAXXKoArdlkvaKpowfZKt FSD8KIXph66aORYUKukhXESk ZnMyMCBSZWNlaXZlZCBmcmVz aCBsYWJlbGVkIHdpdGggdGhl KRDyoWozljMiJ3Y9qhPmGN2k KJPfEYKaV7MxELFhH57nLBOg pE8kEGOaBB2mLLXqeNG5cD4f IDEwIiBpcyBhIDAuNCBjbSBh zbZwnoRmh7IxKyLxeE2zfOSp u2OiIWDwAEyiFD98NJBonW36 xeJvbVFrFNXbp0SsoVu3bSEb OChxBAIdgM0kwR3uHzPpo5rf rHfbc3YiaFUrNXmnCLXcrNSr KVdwsP4sXbRxz7vawCd1IQox suK4OVNwzp16HRaqZSAkA1Oc N0LwUFzaJYQ0ACJgKiMmHIIn CS6ZKwSrGSZmWzYmWTFtPGz6 WJk2DT7VZoVhXMUyHZH1YLi3 MBHsZQk8YAkaXE5FHDTxWss3 IpebPJL4CNK9OvQeBUKiRkIn RLVxPYtrFkPTiqhamMRiRW3i lXkfjiUlLCNjJAe8ikzeCNRi P3m6BDPwhVRfCHstGtKvODTp clxmczIwXGNmMSBSZWNlaXZl ZCBmcmVzaCBsYWJlbGVkIHdp dGggdGhlIHBhdGllbnQncyBu MQ0sAKSZSt4nLE7zVKh8tamz WDNuL1b1WVAsaJMgAZmeLnJw IGlzIGEgNTcgZywgMTUuNSB4 ZXZrQGU8HULrGTSlhUZeqG3v CCHwF55zoaXtV7WzqKbbHBFm cGFyXHBhciBUaGUgcGxldXJh DGVhq9LkBOiaLQEyAANzDOFn g4FmNAEzOCMja94wWJEiUVHe PWcjTTXtCBHoVU6kBFOlUmBg g3kmFPZhxhLaSR1qFHRyRZHo DpKoi41qIQL8zJ4nLQQ8RN2e VYZyjhAph1DbyXlvGWDfJXZr bWVuLiAgVGhlIHJlbWFpbmlu WwMitSE5cjGnVNK0awJpJ3Fo eQQszeShWO4cdr1ycgFbjoEn j09fw9EfWsj+AXRdEROvlG7i TKqfBQHmvdqxlFm0JZQtK4Sn x77zNGW5utBcPRIjAIrgNFMz PwJdeMGdYjRpbHEzWnObZ85c aWxsLWRlZmluZWQsIGdyYXkt bMPdJGUtdQRlBK2tz2Lsb4Ka vaYcVI00BRJjEOLuIUOicJH4 mwGnmXvtwPAprtIrPgbdC12s PnHbiFA6qHKdrJGuGP7biXdu FRvmhCZhY4exQbGvBK5zHHDn UOVzIcWsR26sLsHwhDI2kGEk cYRvkrNduwEdNCRwHyG0HNFj AYA5EIMoDTDbuLRpnLmpQJGd bQ9nCFoozENnnP02VMQidv6g ff8idQpmPERjHBHhsZTfEW2q OXXgIXXhz67ktUsiPAOstmWx U5s4tZHnKA8grcgwquIjqnNl XM56VYRhOZYbm33tfNrkBXDl ZXVyYVxwYXJcflxwYXIgVGhl IHJlbWFpbmluZyBwYXJlbmNo eJ0kPSylEANmHBGpriFak0Oe age8ZDRibLRef0BrbHD2oQBk CPMsV6Myj98fQKtsZKZdUXCq iTosKUn0VEUudjAln6DxgJi8 yKNxKnDmU3Lon1TsuLbslT8g rkTcjYEzLJGnXWMqe3WjApkq QPRzhFXcZKigdtGqb9OuDlgf dL6pEIObhJV9QOVnOQFbSBjz EYSpoKKzSJArN1Jft25vD34d HGxepcfxBVAbROYqIBM7RTUm dGlyZSBtYXNzIHRvIHBsZXVy JQmyOUVoXXEwPRU3GZIooRYn d6VyyOW7jQKiXA0xGECrYQLv WIGzExGhhSB6exQwONDgPFSq b69adLauDIMSKdenMnKlxoXj DG27HABakxRlr5Vgz9Vuw67f UBKdRZBce3HbdQaowMWlmFTs KSdog1npcwXofFHcQQK6KrYx XKDpGFGqy5QgXpucze5nwCGz yVniKGRVWMxvL8Ciq32uFEBm NPHgl3AcrVrxpLZlsMRfbURh f8Lyd3qkHEHvIEbePuNnUcPs L44gfLTduT89XQ6sZZEnNHsm RLWpP1BuCHFxCGK9YOIfl4Bc m8EodOQvAC2ysAlqVLtmsINd K2jdAMHhAY3cx0CiHSJdQNZh K8GviHqsRAAUQTH0DQEin4Rz l2EekLTlKL4aaCyfAYzanXXk Y9xaEDPiLA5aBEWcMLacGM5r ZmFjZVxwYXIgRDEyOiBBcmVh LO0dPYEbBMJlBAzcD23sN5Go dGlvblxwYXIgRDEzLUQgMTQg GbN9sevhry6chnNlTSGqnjUg B4h6dAHptGQqVBZskzARtWUt l4PgJPkxHNLnTZIYYPVwMFKW FOcSQ9GCAHFif6claWnvq9Bq jLDeDF79FTCzhTFnWXO4TN4d fVxwYXJ9 MICROSCOPIC l5xcsVZyNQJetRH4RtQiEWZi DESCRIPTION (test l6ptn3BltFKzbRDvLJoboKDf code = 3371) otIvgd54vRT4gX16YG1fYCZm XcM5CDThaeQ4Cnq9WMScPYUc qUGfD386r2ydd5xrcrImcJN5 gOmqLRRpgdbhDkU2ZLxwPEIt pybiRWx0PQipSFGepKV0BSYi qZPtW0LrRJSdCC2obkc0XZJ0 IWslDZDiJrD8NOBryNIfIOFd vSeoTKnxh644TQU3OaKzJOXr xeCpiVxskN6qMbNuBXEWFTPe r5SgSZMiEXJwnfurVLDjYQUn cn0= [facility] [id number] 08:58:34 Test Item Value Reference Range Interpretation Comments Case Report (test Surgical Pathology code = 104) Report Case: [id number] Authorizing Provider: Ernie Washington MD Collected: 07/15/2022 09:20 AM Ordering Location: [facility] Received: 07/15/2022 11:36 AM PERIOPERATIVE SERVICES Pathologist: Willian Restrepo MD Specimens: A) - Lymph Node, Pulmonary Ligament, Station 9, station 9 B) - Lymph Node, Interlobar, Right, Station 11R, station 11 C) - Lymph Node, Hilar, Right, Station 10R, station 10 D) - Lung, Right Upper Lobe, anterior lobe segment ADDENDUM 2 (test code k3djaTUbQFVbkQK5NtYtPXFy = 3382) m3fgg5XprAEutURyKPoyvBEs ulOlph67wFA2kO61WZ8qGSCd PcS7SDHilzA3Ijt3YTHfGTKa eKHnP440v9dke7oxzyEydOK0 qDinGOJnxicsNqN4TCoiPRUf bmqvJQk6MAecIFWkyBC1IEKa qMRsE9JhWMCvWD3eukv6EJK7 UVflHUUaVwX8ICVtlMOcVHOf yJteSRtjr634VGJ1RoTwOZXa vhKkmBpqdM2eErQgGWECrOgr DYWaEKScVRBfIYoiAPIluL9l MVnkl0OnIQH5rlQdKQFwhhPx byIouAg7nrEqPaINO2POWS14 jRV3dD7oPUPzg0PeglfmbXDj Cx9snDXnNLF5BB6yx4tqve1p iEQdMAjxZd9jFHOpcnvrhh0d mXGeSVLinpWJTKQMJUF6BWgi YXIgRUdGUiBNVVRBVElPTjog Rp6LPOKVQWBQGQQRTKMdfghg YXIgUGxlYXNlIHNlZSBhdHRh K7xtWKQbY3XrssLjZMZqsC1m jUYuo8EyYkBlbDgssyRqAKNq aWxzLlxwYXJ9 ADDENDUM (test code = q7nsxDPuDRDouFT6VhSgKAOy 3381) n5noz2GmrHXitSPkOIvbhJHa idBftp06qYY4hF27QT0bVUIi XqK9OBAlarK5Yqc8VCTaBPZm nCVkZ953j7yer9thhvKroFZ4 vKvzSRDtxcebEyM1MAjsWZPt keegRAl6JXmoKOInpSW3LNMa sSUtS5VyCBSjWN4wrwd6NPJ3 XPxiYBBsBbK3ERNgrPBnCIUj tZfhSHugw175QBB1RmQmFVQm mcNeyFstiY7qKxMyYIGMkJit IEZwIAZtMACcEAisMCFtgT1u BUuom2YuLIY4osQiWNDgepNa kGqiGSQdf3WpsLZhx4LmCSJK YDJyzJ1btD6lc2FdyT0etQDp El9vqBWnEYE0LC2xr4taaw1o zDCyYIzqQr8cZAFfmyrfbt1h cGFyXHBhciBQREwtMSAoMjJD VbTakX6sGMk1RVVTSGBSB7QL LBVfkIRuQOHWTeFXM00LFVko OTAlXHBhciBJTlRFTlNJVFk6 IDIrXHBhclxwYXIgUGxlYXNl ASZhHuCjIFRaLWU9yNCctMZg OANoWC9kXCXjljPdr5R8AFYv ygGipSS6yLAfRCSvu0PwbNCf IFxwYXJ9 DIAGNOSIS (test code m3nmzVIbUSWss6gdFFDggTPw = 3220) ZzEwMzNcZnRuYmpcdWMxIHtc cnRmMVxlcGljOTYwMlxhbnNp FHHxeYWbL2KnikzxXZuhWP2f VQ0xnQpvpSMyrXHqJBLzPdGy k6arj558bLCja1itGECYqtps aYj3pUkxO69dl7Q3IqmyN7aj VNR9UKptczMtgiBcCAUlwLY6 CJmxhpNsNHTsC9KmQM1zJVqc gFVyYJJ6cWdxFDQnmzctMiH4 CKyhUNZnxacgRCc0HUemXTTp oHY6LONidBQrA1HzFWOzIO6h jmp5QXK3IEhwXYQtAhV0CBPd rBHmNUWbhGhqSKwmj558OPD4 CuSkERXoneFojYjhwT9kXuKi GZobJcOuAR5oDUhQUZxpJo4Y XWbjRRETFC8BCODCPEaXT6YX CR7CVQPWXKRBEZ8OKRroXDYW I6wEIN5ZFcpjRJDcT2SuWQIe ICBPTkUgQkVOSUdOIExZTVBI LN5XYDUxTVDnVFubyJJfCYVb upMwcQXdCIZrHDZNJcMQFJ3Z TARVL4IPROYWPyHFDdtVBzWG RWNYKABNYD2UVWJvXbobEBlI NRSHO776OFRhtxxeJjSpEX4p XV8KWEKDMY3XX80yVEuOVTym Mf2OZIWjZB5yOUglOQYqeCMi QXzgKoEnkHKcIPXwJHYUUY8P TNXEA9JVWBXKQVoDGmvaD3DR PErDApIgTXZjSJGXZ0kXYX6Z DrvnMIYlS3OwHEGiLYAJCaJb FyNGZDkWNYtSUOPQWM4ZAOCr XDKiTDmmuDFsAVGjtmVhZ8Xg YQFxguPELbAZTK7FZQPDUTkP QBBOLDTGPpJVO6SGUJQRLsZS EwgBNvNSE6PXQWGYM77PUfOg DGVZV67EGjHMA9YLTCp0CEQl omzmBcBqbq5uTM9VWbYAB5xT LOZINLVPT6ISBxCJCi6JYXsl GR5BZqgATCZYMgAIKhRELKhI VEVEXHBhclx+FAWlgtjSG8VI HZHGKK0WJ0sWDjFLANTIGhQJ P4pULXFgXRTsGMzuKNSDAeTQ ICgyMCUpXHBhclx+LSBcflRV OF2WEF4UDGVXAzOWNNAxJBYA YIJAFeZWZvYUKJANDXOTWN8D DzLKL13bcJUpAN9cBFv+Tk8g YzoLP7XHPVdjBObKDKLHVBTF MuDNH6gRWxNTSwNGDLAUXKoA SUVEXHBhclx+YMUlfp8MYVnF FKNND5SDF6OMMZBEZYhLImVC MI9FEOiIKGeLJT7POUBAVVAp rTYtDV5eAOs+LZNNLI4LVHsI GNesUaUXYTANUG1STO6JGvlJ MilpWoHGCUFGJxPgBa1PFH4L LEyNOjLPQ1byIJUxHYNDDSMV F9UFXVqiIBRtIQ9gTNKSPDHH PPtiONFFFXIJN08YHIHmtwGj UXYyMNIVXIpENPprUVVXBq5M QVRPVVMgSFlQRVJQTEFTSUEg ZK7pEZvCSLTNH3vDPx5SMrTe fYIpME4nBMz+COWWAR3IK4bF QvZNEQKFHP2QSfDvBNHsOfOS zVHdKDeFZmY2uPzvUTQcAHdy BDG5a0mwsEQwGTHsaWOpRCNt MFxhbnNpXGRlZmxhbmcxMDMz OJH8htLbILWtAVilHZPqPJic Tc9ivZAunLpnGkDsUYWac2ng joAPxlqcwGd4e8gnWTDrTrN0 sETvTZwbG6tirkTghPDeOFCd WEz5nR80CHRguX6yeKCpVVbf hpZwVsH4OFbkBPDuYjB4EVHi rUQfUCNtS7prMVLyJQbzTGYz YLfmaPNpXGU0eCzyc9U1qKBm pFCtxRqjJhJiByJkXfQFb9Po FQy7hVxiS1MdSXLfVqH9nORu WOPeILudAYIqMRKtlxF2wA56 KHtuslO9mAKtw2Pxf15no918 pV4lmDAlBEZ7RNYpKRTzdKCm XDNrBJY4PTZaaMLlA4plXRTe DV2faxqeRAgiINygSCOdfYG8 BSGxoEIkP5ThDFVwZVyiSMBu rqi6LfWePz1qcVXbnIakGDvs a2ixl1yuhYOxVgc5FFArNtLc DouoPGntl8Gvi1tqWZDrsq5c TZN5mJMeqVgbc9J1cKBxUJWj kOMzEFDpMA5fcOOcMVCywI5p cmxjXHBnYnJkcmhlYWRccGdi yrMyPt6zhDuzYKP0MRzsA2br kO7kTmM1DCwdV0peoK1uSDa3 UCdiBMRxtPA9ktH6IHBotHKr L2VjzY2oGIViWZ2heuw3c6hi ADH9KXitKVGcTtC2whQ5AHCb zNGtGARgqSwzGQphr651KMS7 WkYxEHOdw9UcF0UbjQfnT82l xZzuB89kWVOoeKdfyF6ftDfc fM1tYiRxPuEyQYskhVknYX2m CENsM2udcCHxKVXwUIPmB9kp XtVsaX4tjGdrTQetheYqQTDa Gmg6AIAfjGGtXSFcGit6PLHw JASeD37fpzjaEJY5dE9dr7lu o3FcNIqrLYE2PRMwd44yTBod nwH8MKwhOh4oIzHmMPB0TEvc YXJ9fQ== COMMENT (test code = f2avvHJuKDEsjSJ8MzQaFBIp 3359) i4qbc8WecCIvxEDzPCfffJNa fqMmrp40lCA7wF87RA6sDCDc CpS5CZZjjxB7Izy8GZGuLFZx vOWlW586k3caq5frtoDbjMB5 wEbmJUCosuvaPgM2XMapMMYq otsoTMs2EUimPKEqhDY6HEHu iIJdZ3FjYMIzHK3fzbc6KVS3 RApjOFYqArY0YUDmyMCiATOi rTjvGGlvx000BWJ1OgDfTYYe elYecArojQ2iRiBpFIRPnQ7s FHNdUSXqg1B7TVy9IFWkutHK gA1jvvurXZNwjVTuKV0rhi4l nZmoESG6LNXlnidzWBSxHPIg h8Uvl5ezlKGpCLYzHT30EYFr IU3ad1jdav7elHUoNFLnaxKq bT7lBAOcLLPnuGEilJayQi8o EdHzkZj5bsI1yXzaIRGsZEVw xH3idRFxIPbcVLHpWQPbLDRv ZHVtLiBccGFyfQ== SYNOPTIC REPORT (test LUNGLUNG: RESECTION - code = 5765) All [employer] Edition - Protocol posted: 04/09/2022 SPECIMEN Procedure: Segmentectomy Specimen Laterality: Right TUMOR Tumor Focality: Single focus Tumor Site: Upper lobe of lung Tumor Size: Total Tumor Size (size of entire tumor): Greatest Dimension (Centimeters): 1 cm Additional Dimension (Centimeters): 1 cm Additional Dimension (Centimeters): 1 cm Histologic Type: Invasive solid adenocarcinoma Histologic Patterns Present: Acinar: 20 Histologic Patterns Present: Solid: 80 Histologic Grade: G3, poorly differentiated Visceral Pleura Invasion: Not identified Direct Invasion of Adjacent Structures: Not identified Treatment Effect: No known presurgical therapy Lymphovascular Invasion: Not identified MARGINS Margin Status for Invasive Carcinoma: All margins negative for invasive carcinoma Closest Margin(s) to Invasive Carcinoma: Parenchymal Distance from Invasive Carcinoma to Closest Margin: 2.8 cm Margin Status for Non-Invasive Tumor: Not applicable REGIONAL LYMPH NODES Lymph Node(s) from Prior Procedures: No known prior lymph node sampling performed Regional Lymph Node Status: : All regional lymph nodes negative for tumor Number of Lymph Nodes Examined: 3 Dusty Site(s) Examined: 9R: Pulmonary ligament Dusty Site(s) Examined: 10R: Hilar Dusty Site(s) Examined: 11R: Interlobar DISTANT METASTASIS PATHOLOGIC STAGE CLASSIFICATION (pTNM, AJCC 8th Edition) The suffix m (or a specific number) should only be used in the setting of multifocal ground-glass / lepidic nodules that histologically present as adenocarcinomas with prominent lepidic component or multifocal tumors of same histologic type that are too numerous for individual separate synoptic report and that are not better classified as intrapulmonary metastases (e.g. numerous carcinoid tumors). Multiple primary lung cancers showing different histologic type or different morphology based on comprehensive histologic subtyping are better staged as independent tumors without m suffix. pT Category: pT1a pN Category: pN0 ADDITIONAL FINDINGS Additional Findings: Atypical adenomatous hyperplasia CPT Code(s) (test y4incTGwEIMbqGK4KbAgRSWw code = 3357) a7hri6LgzNUwbBJvLBravXAe dtPaca75qIG4rI30GF4pGINq MhR6ECLwgmZ3Wej4HBDzWZTt xQRyT790v8xsj0sgkeZkmSV0 uKulZBXtvefjEyS9TSviPEHx qbmhVOd5IJrwNIIgnWM9BPTs fCPrU3FlBFFrDF7pelh2DLM0 NItqVEMbWvK1YHWqqOLjPFVo hGjkEPyzt150PKX8LtXhKPFo piGeaSxthD3yPlZqARZ7IZYm RKhwWGOwUNfrOZKEA5ywSNQ9 CLINICAL HISTORY x2bjzALaNOJscFA2FbUhPWXf (test code = 3356) b0deu6BpzYJdwSHyYCdnmYWk qzJjun07mIR7lC74EL9aHEJu YuM4SKPtigQ1Mou8VNWwTDGh bROhV652f0vrd0eudaJkoHF4 zEywREFvikflDhY9DJpwPSGv queaESa1PUihZHQczUO3YGAx tKMyB9MxNVQzQR7pgsz2LDM1 NNwbEKLnElL2PVKvaNWtHDVb yBmzWMqsd564IRG1BwRxSQVz jpCpsOxcyJ1qJdWeLZVCFJKg u2OsxiKrqo8cNCOkxRuigILr iL7mOEVktk8= GROSS DESCRIPTION o0cisDBrEPUdlIU9PvJyRHGd (test code = r8uqf4JnvUPgfTViKLgutAXi [id number]) eeZyyf45nVY0nX98JA7gJFSs UfL4VVPevkE3Wyj7ESRrIKRu mZUbT460b1dhk6kqqoLleXO0 AOScUHClK3MgYD3kEUSdcVMa C89dqOFuBPY6ZKObIPOxxEUk CYHgQRA0WTKzqHYcM9sqTSXv NY8khraiWYwgEVmpOBHwgMC5 BWCatVBaS6MdKWKaAEdvWSMp ngf1ZaGkDc9tuTJlhHqqGFho FLLho4cySZZweZAlETE6PJay oACqQLEaKNXnVLl5RWNiVFxa sRRuEK0pfFohAagsaTrjp4Pw dCBcXGlkIDUxMDAyIFxcZGIg O1BLENFlQZFiWZLlTZWpQBi1 RNumC7EAPHXlHSCzJsq6Koq5 BmZ5ITr3EKTPUp0wTeP8PBq9 AbM3UQZ3WMIgBMaqdBSaVTjp ZmwgXFxmIEFyaWFsIFxcbmN9 UZXnJLlpEIMaDmZeIO1sRAwl eGwrFe1nMRglIFDsjI7uDPO3 OEyhU9SvGF10WGKVuTJ4jU7q LDnsYEJxwcxzjmGxVOWtW0Rv dmVkIGZyZXNoIGxhYmVsZWQg y1g4cTV6iPQprWS8qYLiwJyd NwQbTI3iwXRuEN9hUAisTHeg izKfx6RaJB99vJLggqUrecDm MmN0GHLrj06lPOWjwEWlMHAj EaNfJ78fMQ07tSTxM112oNGq rHtplAykfg0oNTDzkBYqsRU6 FKIiaJ5gpK51bqUkdrZUSN13 ZYCxvLDnKER4GD4sCTQmoiqr SWQpJRRaSFE3TBnnjB77oVFu XGZzMTZccGFyfXtcKlxlcGlj n3IwiLYvDNktXCIxGGSwDZyk BRVlP9KBVTQtOXPvDKJaIIJc BFn7NMxyZ8LUYUZmJPUhGyj7 CUP8EaU0KEv6IITCZu4jVxW3 KUd4NoL4QHS6PYIgPXonaUDo IFxcZmwgXFxmIEFyaWFsIFxc bhH8CIMwJqZdGa3tARipaDdm Pn7bHLmiGD54ZFHbm2Jsqbrv UmqflHGnWJL6SXIcq83lULFG LlxwYXJcZnMyMCBSZWNlaXZl ZCBmcmVzaCBsYWJlbGVkIHdp iCgprImlMXFtpRllajEmH4P4 voUjSW1nXIKuQVVcX5OtFZMh U51zBGWiuC5uXJBnQS2kTHBq jRM5aI9kGCVlMbBmanIkLBMy HMWsjDTkdgWcxgAha1VwIeVw dL2cdZHnf7HdCMN3Hn2icHDv CKWkilA4q1MpDEjjMCRoGedh WSVsN1GqX9LyviSwyDXeFYMh udBcy4naKPO2XGDyjLNjbRHy VwUdZqnbDZL9s6prUGIrzUXr NNF6EOqceOLyRTScMGIfQTpi ZkYVJdHjSlI5QLS0SOM1WuB5 QTm7CXNTOeDgPmMwNbQyHdOd OyPhMJv4QIq4ITdTNqZ8VKc8 RQHrWCCmSPIjUWQpATh6AJLk XFxmbCBcXGYgQXJpYWwgXFxu H19dYxZtHBRIGiDViI8qlHGQ h8XsSGILjBffovpkXqpwpFIo IUM0JCYad27tULQTXxanODLe ZnMyMCBSZWNlaXZlZCBmcmVz aCBsYWJlbGVkIHdpdGggdGhl FFIlzGrcdeCiX9Q0iqOfOA6x OAZkQXPxK4EgFJZhV97xWNGp zD9oGDWyWM7mCHTwpBP0zY6c IDEwIiBpcyBhIDAuNCBjbSBh pdTkmwAnv9JsPsTdsS8soLZo b2UmGNRmLSuvPP59PAGhtT59 rcOagVXoKZZbs7UzjQq9iKLw CQgxSAYbbY2shH4jDyTgl9zu zKceg6GkiPVxCVnrPQOtdEGv RGgfmW2pGxIjh3bqvCo3KPie pyT9VUPfwn17NSmgRRUoA9Me I6RwZXgoBDG7IBUyUgEqUQLe ET1WYmDyXVPuVaPdVKLrBHf7 VIy9ZG2ZVfVmVFBvAOV4GUs3 IXVvXWx2SNntCR1JBTQfBkx8 VmqmBLB6ZOB6RwBzOJGoDkTh IYQgFDtmMeCMstptcNYjZC6d bOrmoeGoLSUqZSo7uhoeZLRy O3l5DZKhsHYuZXvxKfXiRHPc clxmczIwXGNmMSBSZWNlaXZl ZCBmcmVzaCBsYWJlbGVkIHdp dGggdGhlIHBhdGllbnQncyBu MG0hBCZAVd0lQM0gRIh1nuei HWQdS2k6NCAfkYKoWZftZtOu IGlzIGEgNTcgZywgMTUuNSB4 UFDgPTC2DRCaYDEheRYutY8n UVYqF85dfgBkP1BkmDtgXFEx cGFyXHBhciBUaGUgcGxldXJh PKUyx0WnAEjcMLQdQBUeQQFw a1SlJJNyWCJli93wPSCmPFUx WAapXRKmNMZxFT8tPARfPvXn a0vfKGMtzcUrZL6gNVSsNSAk MlXsp22rZFY8fY4aSQT7CE6u LPHxucEfz1JfbMmaIMHeJOVi bWVuLiAgVGhlIHJlbWFpbmlu JoOepNJ6krRgRHP3kxZpY6Iz pHJspgIiCO1wpp4xqeBtjtSr q77yk3HnPhc+MRRzMOKfaW1p MXerVWDolowcnKy0CLSaX6Cv c30kPIS3lqFhQSWdBQevTDGk UhBogLDoZuJaeCPnMyVnW57m aWxsLWRlZmluZWQsIGdyYXkt gQFhIMLqkAKjAV4do0Izx5Uq uxMsAG20SZPxRXNcSSTguVI9 cxRnmYhwsOEfhgHiXtqjT63m YuYdjYC5yPSadYCaKM0fdXiw WVbirZFxO8zbNuKsTF1qRPPi SDYoLqGgO36kVmQxtVM2vZGu mKSkzfMuurVlIMSmQdF2UMPx DJR2DYFdUHRhwCCwwJtgTKLh lP9uJMfvwIAkiP13OFKycw6y tt0hrKthEJJrYGDrdHIyGV8n QWOlLTSam85glDioLWBhjmMb V5a4zUJbLB9qradffcMyazWt ZM60IIVpMVPcf59lnOwbOCGg ZXVyYVxwYXJcflxwYXIgVGhl IHJlbWFpbmluZyBwYXJlbmNo wL6dCUxkMVGjCCZmzhEqj5Tq pul9SIRueFOct9KjxTO5sXJi XDKjD9Gji12jDIlbIYVgMPBg sVgqCHq0GIYthbFae0FkuJa1 jEYpLdGdT9Zip4FcvFwzqV1b ckEmwPNeSIMmTEUln6FeWbzi MDToiWUoIMssvoZfo5ZmOjnc fX8tIODjeIY5OOEqEGVvWMgx SOZzgLVvKEVkE2Poa11wQ33f UYwuhzxoJUGrLMYeYTP6GBZn dGlyZSBtYXNzIHRvIHBsZXVy JAfqXWYqLHOkKUY2FIDwnPEr o6YmsUM5qCMbCZ5fKIZdAASf QURvBqSdfOT1pwXnBRWeYJKl e21tsVinGGTJPxtsQkXirvVh IO86TJCltuGux7Nyc7Lmo00l FZUgGULqr3IwoMsgpRIjuMKh TMwdr1wqefNvpLYuJMS1NeHa OBQpGTHwj9ViNvwkks0yoRYv zSujWZDQIUliQ1Gih20kGFFn HXNeh1VnwQgrsMThlZEueJHr i5Ayz3ruFTWcTBqkLzWdZwLx W57fyACjfS48TT2pUKGxRGco TNOyE9GzYKAgKQL2DQNir1Cd h3AoeUFeOB1nxTblWTwlmGEg K6ijTZKgHW5wm4KwHFUvEXSg M3RpwVpvAOTMSGU1BCNmy7Eb c3LpgIUtNX6akXcmWTtuwWSo X9kiCQQtPB3ySGVeRBvsNE3n ZmFjZVxwYXIgRDEyOiBBcmVh IA1dVBSvGRKfQTnrD15sM3Cl dGlvblxwYXIgRDEzLUQgMTQg KiN3qcphrk4qwmKuCKUxekNd H6a3fJOrbBHfSDFcsoAPhPZg w8XqOYdlPMFhKNDMLQAgQBNP RIjQH4ABXXSkh5ukmDcvv4Hd cMFhUQ33YVCwfETaZGD6NG5z fVxwYXJ9 MICROSCOPIC o8kjfVUsMCNueIZ5IaWnOWDa DESCRIPTION (test j1rve6XwgVOcoWUdRUcowBSy code = 3371) ppAdgg47wFM0dW13WP4gVTNy InL1HDIjphQ6Tzh3MJLxZZWu gMYoN804a7jls3jmmcLsySM3 vWfsZVFmwifdKkO5PSabUVVd nlljUTz4KWzqHRMadZT5KMZu iHRaY0CrISYyIQ1bcly1OLG6 BAziUEAeJgF8BNSvkBZlJVVu fJauVFzjy084ZFV8UyRmJFIo jqDhcVrnsP7yKgWmFFOGCQXx y2LuBCHhAQHhunmcJFWzJWGp cn0= [facility] [id number] 08:58:34 Test Item Value Reference Range Interpretation Comments Case Report (test Surgical Pathology code = 104) Report Case: [id number] Authorizing Provider: Ernie Washington MD Collected: 07/15/2022 09:20 AM Ordering Location: [facility] Received: 07/15/2022 11:36 AM PERIOPERATIVE SERVICES Pathologist: Willian Restrepo MD Specimens: A) - Lymph Node, Pulmonary Ligament, Station 9, station 9 B) - Lymph Node, Interlobar, Right, Station 11R, station 11 C) - Lymph Node, Hilar, Right, Station 10R, station 10 D) - Lung, Right Upper Lobe, anterior lobe segment ADDENDUM 2 (test code k6fhrFKyHGKooIF2LkYaQESv = 3382) w6dbn6YpzLWqsGLtQNjmkEAc vtDdob32oOF1uI98JJ4aTJHd SqI6ZQHxxkO0Ggc7DKUaWQBp pKJhJ463e2sje1xpisCboRO4 hIycFVGqcrkjKkR7XNohJCZy fcbhSYi6HZxiPQMhkJH9NKTd tCNhG9LoSJUhLN4vijm0VWL1 FJmrDZSpKkS1UXQpoVZaYWGv zLegDPhxc450HZC1WcCgCARq qoYwcAioeN8jJuRnRVMPlWzi SMYnLISkEQJlRZppXJJboJ6d OLixj2KtFNV1csBmHYYsocPv laTtaJu8lxPeZfIUR9QWTS23 wXJ7mE2mEGMax2XthclmtMNr Ub0reMLmMOE0RC7ld5ahad2g uVLnBHlqIm8nFVIqyrrchh8z sIZtLRQtgbSDKOAMGBK9TBps YXIgRUdGUiBNVVRBVElPTjog Tb2AFKEFPFGOYCUPLACknncu YXIgUGxlYXNlIHNlZSBhdHRh U8ddPTBeZ1FblaMhKDFzdP7l oCUam5BaKjVigXwhadNzQZNd aWxzLlxwYXJ9 ADDENDUM (test code = r9xhtNMgRJYmyAC2JjWzJZHs 3381) c1byi7JppVTrsYQuGWfwxSNo bmGftn91yCW1rO00CT7gYRFx DmE2ZCLxfnG5Okd5BPBeCNXt zCXmT969q2svl8zlouOhoDK8 wUdiNVTousejMnZ5JLiaQUBh oedaRBn9RUnxANKamFF1TRZx rNPkO5SjJTFnMB5avdf1BTT2 ERpiJLCsHgZ4ZILckYXjAHRf uXkoQWceg696KIW1TnCaVCBz xxFuzQovmU1mJaZfNUNPcSle RWRbJOXiVIXhOXddIKIleU9v GBazi6XvDTO6imFvQTIwmpYv kDhwUNQnt3ZupXVai7AfJRWK EPZkwB2avV6ps2ZcqA1qiMPk Ux2tgWBuYFY1OK1hz0irdw4f tPXxTVlsLd1pBAJmernsxh0b cGFyXHBhciBQREwtMSAoMjJD YjNajZ8yWLf2PMVGZRDBY2ZI ISVgxDZeGMYPLxCJQ72TYKpm OTAlXHBhciBJTlRFTlNJVFk6 IDIrXHBhclxwYXIgUGxlYXNl FIFyIlZuQPDrBEW2kJXwnRLj OUMgRB5aWAZygpMlu5T9APRy whSkxTR0nWUtGGMey1XkbWEr IFxwYXJ9 DIAGNOSIS (test code b2nhySPiJCNwo8prICGepXCp = 3220) ZzEwMzNcZnRuYmpcdWMxIHtc cnRmMVxlcGljOTYwMlxhbnNp AGThfMHnM1KdzajbQNztZE4w GK2soCugqDRspVUcWEBiGhIn e9qcf308bUFmu1htXJGKtkwm mOn2cPodR16lo9F1SwevK7qn MPO3HAkmlcDiywUtBBFmzEC0 LTpgtaVbXQNxA2AtGR5wAVxd xJBmKPP9wTwnCPOzmsoqDuI8 LYbqKDCxlwyjBBe9KQzaOGSp iOI4AZAojOEmI8VlQEVcEY8l bnv8CUV6VEwtMENmMaL4ZREw iMHkCHTxeJawMLjwj999WUS3 UqQrZTSiqtDexGtorL5fBsLh NYugAyBtOF5xRTkLAXiuQi6U SDfuWSCADQ9CSVPTDKnAZ3XM CU3PUVUWXPEMQI0AVXfkUJQH O9jXLW8PAlqjZWElL4VvFEXf ICBPTkUgQkVOSUdOIExZTVBI XQ5MJJLkAQAyJWrylFXzIAJd xgKabLTsSBTiHQPGVdIQGO6B UVFBT6SMZXDDPoQILioNYxMQ ULFYZVBZRV0GSSHuQwxtLQmZ DJAZF613OGZgachnYySiMC6v XC9BQBMSSP0RA45mJFeXZMlz Jd5XZLSqIA9gTTubMZTxfYVz JXizPaQhwUHeJENuTPNPWL1O CLQRU4HDWSVYGKwETgbdP4AB LWrPWuWmFAVjLAACB3dFIT0N ZbomVSVbR8XtJNDrIRWZMqXn ZaSEQVhVTQkOBISRPL0XWFId YPDzIQtmrLViDTJzftLjH5Nk QSAvpxJQEvMBBI5ITFSPSGrS HOCERSYYFqTWW0FURHXZIlMT EmdESkHHC6PZQWNCQ63TRcKs QDNYW32GMtSTT9SGZNx4SHIo tjlmJmBspg1mRN5YFtACB3zI GSVBOPWFD2EJSlXPCl7WVGre GH3YJpfEYVMZIqYBNfSRUXuP VEVEXHBhclx+ABKxtkyJR3PG KRBGLS8NK8bGHiDQXFYHYgUR U1zWNLOyBQFzQZekRJQHGvOJ ICgyMCUpXHBhclx+LSBcflRV BP3JAT0JGPGJNoABCCNvLCZT XDKCGyLBNuAMUROPXXMTTV9C IqBPE49jpLJhQF5rTGh+Tk8g SuxDI1AYCPovAYeMTWRMFGBP HsYQV2rEBnNVBaTHUPIJOHkW SUVEXHBhclx+JQJnpk5JCGdS AZCSF7YLX1ILKKGEZQkGSvMT LN9VFBxZNRbGSJ6BADBDFXMj xNArLR9tMXj+WLXKDN1DXGuX PNwpKyMWQCQJSH0JPY1VIcdB UtofOmUPANGLGcXdQk9EOP4M BPuQFnTTI3dpGYAjJPPNBCMI S5MXJGaoRLQkYN5eZYZKKJFE KCvxHBRPFMIIM60DXRMzggAp QOFrITCSFCcJLKjjHQEPIa4G QVRPVVMgSFlQRVJQTEFTSUEg HA0lZVfFLAGQL3xXVb9RQlBz vOHsBO4lXSr+WLKRDA6VD3uF SyLJUWIHFW6TEwMhYWStVyJR pMIdRYxJDjT9xJxpKJQlEZex UQG2d0wxfXSePPBewFZqWTWf MFxhbnNpXGRlZmxhbmcxMDMz UND5ouQzMVEdTWqsGHCdANvh Ya2gkFBehOsfAtFlJBOea9hp vaBKmedwaQv8d7tlESEqNkF5 bVDxRLtrW1hkpaEfoGAgXSBl FPv8nS48MODgpZ5ohJZlAEwx iyAyOjB9QRqwWVVmClP4VFPk cQWgAPWkM8axIRDrEZqtOOCn WGyolQGvXHN3hFvex6U2qIVw lMCqoYhdQlMxWiGqRxYRb3Qn UTv5wFsyQ3RsBENvOmI1eTQp JJWtXMdeNFIcUQZduwM3xY44 WXmagwZ8bCDey5Zso15nw238 bA4gnVAgUYC5HQMaFLMmxOSy JIXdWQH7MUWjbMMyH7jqIYMg OZ3urefjBQkmWCmcNQJtpUU4 EJDjcAPeL2KfAXMvRKbdSOEk elg0MnJqWg9bmWGidHzhCXbx e4avo9snzUNnCww0NOUzZnYz NpskGIyop5Gjq1slEYWfmt3n NYG3yPHfdDcho9D2iHGtFQHo bQTgBSPuNX7sfOBoFNGraT1n cmxjXHBnYnJkcmhlYWRccGdi udWxMq0ozNxvRCV8CZmyA0sr nZ9kGuH5HGuxT7vxwZ3iUPl9 KDknKRSvpJI7osH8ZBUjuYAp B5HyyC2qXEVuGU6bovm0x4ni YWQ6LWdzDAEhSsQ1ijH3JCTs nQHyMKYabIxqBVpxo960BAP7 RiGzKCMup1DpC6WfbRtpJ82c pYgjU03hXKKfoDgoeE0tsVxj zZ3fFnRyYcSgABfzdEdfZY5l VHGdH8kmqCHcMPKoGMLzJ4ou DaMrxJ1jrEueHWiwzmLoLQMw Eng0KNOkvEKpOPRzPua0LNJv BXLkL72juxmxNUN9eX7bf1tr b7HvKTfhLGN7BPYis13hOSoo anR9UXijZv8dQaAfTHL5HYpr YXJ9fQ== COMMENT (test code = c3cxnFSnHNMuaUJ4IbQlXKAo 3359) t0dkn5MwcLCjxXEvFZrwwPFi icTbzn24jQF9eF56FH5qSMPv PaI1NPHqtrK9Pcf2SBDeKHQm uJRyT466k6ggn2qzvrEhpCS6 cYwuKOHcvaroZaS1MBrgHWJd bqdnKHs7WIawEJPiwUW8UHZu bJMfM3LjWYNoHZ8sbrx8MYA1 SKeiYWHxJbJ7DRLdqLGkGVLo gEizPWflh339LRZ3CyQbWBIv dnOanEgtuL3aJoNhRTWCtQ7n BABkJHEto0J8GDm3AWQkggGH kD2xpehvQAZkeVScPB4afm2t cEcnLSH3ANKirfiyDFNvFZQe w6Pwb6mckDBjTVOqSZ66GOPk BA5qz2ekog5twUFzMHZbouXj rT0iIUGgYUGehQIqiAwdXq8e RvYyrRs1lrW0zBrjQFMsFEAo uW7ucHZhXYauVCWrUYOeBLUs ZHVtLiBccGFyfQ== SYNOPTIC REPORT (test LUNGLUNG: RESECTION - code = 5765) All [employer] Edition - Protocol posted: 04/09/2022 SPECIMEN Procedure: Segmentectomy Specimen Laterality: Right TUMOR Tumor Focality: Single focus Tumor Site: Upper lobe of lung Tumor Size: Total Tumor Size (size of entire tumor): Greatest Dimension (Centimeters): 1 cm Additional Dimension (Centimeters): 1 cm Additional Dimension (Centimeters): 1 cm Histologic Type: Invasive solid adenocarcinoma Histologic Patterns Present: Acinar: 20 Histologic Patterns Present: Solid: 80 Histologic Grade: G3, poorly differentiated Visceral Pleura Invasion: Not identified Direct Invasion of Adjacent Structures: Not identified Treatment Effect: No known presurgical therapy Lymphovascular Invasion: Not identified MARGINS Margin Status for Invasive Carcinoma: All margins negative for invasive carcinoma Closest Margin(s) to Invasive Carcinoma: Parenchymal Distance from Invasive Carcinoma to Closest Margin: 2.8 cm Margin Status for Non-Invasive Tumor: Not applicable REGIONAL LYMPH NODES Lymph Node(s) from Prior Procedures: No known prior lymph node sampling performed Regional Lymph Node Status: : All regional lymph nodes negative for tumor Number of Lymph Nodes Examined: 3 Dusty Site(s) Examined: 9R: Pulmonary ligament Dusty Site(s) Examined: 10R: Hilar Dusty Site(s) Examined: 11R: Interlobar DISTANT METASTASIS PATHOLOGIC STAGE CLASSIFICATION (pTNM, AJCC 8th Edition) The suffix m (or a specific number) should only be used in the setting of multifocal ground-glass / lepidic nodules that histologically present as adenocarcinomas with prominent lepidic component or multifocal tumors of same histologic type that are too numerous for individual separate synoptic report and that are not better classified as intrapulmonary metastases (e.g. numerous carcinoid tumors). Multiple primary lung cancers showing different histologic type or different morphology based on comprehensive histologic subtyping are better staged as independent tumors without m suffix. pT Category: pT1a pN Category: pN0 ADDITIONAL FINDINGS Additional Findings: Atypical adenomatous hyperplasia CPT Code(s) (test o2xsmCMvJFCegLZ7ZxPnETDc code = 3357) y4mzh5DejHUffRQgXJkuaLCl btCtlh52gGG0vX19MO2fMWKs AiK9ZHCnesE6Kfg5OKOtIKWn nDDbC878m5urt9dugtHdbSX1 lIvgYXGtvgfsBrE8EYdpHSPe elfcDBn6QTgfAMCpsCV2BMIv aGOnX6UpQNZcOV7sdtj4VAZ9 XOexVNKwXtQ2QORukNEpRUQh bAtpXBdmu562YSU7QxWbBNKz txClnVqkjT7gNtEzOCY0OCQz FWrtSWTxIZdlHSHCV8jdXBC9 CLINICAL HISTORY v4byjDTfEVYvyAY6DeMrOGHm (test code = 3356) e9dub0XejMCbqUGlRLyhdKHd kpLvmo86hXS7oJ49JM0xTLPs NiK9IPVhykQ4Llp7NMVpAIAn tPBtI378o2vio4jrhiAqpZZ0 dTotNQXnatxyOuC4TImfOSSq svdyDNl7QQuzGYTzwQI8EMCi hNBaE2AuSMOhPJ1tcsa6PXE7 HQinLRDwDcR5NFGcsPXvNCPm zMdtDFagk155SZK8ZbUmBTEm klGuoLbdzY8mPbWlNOXIJVGg h5OocgGeqh8jGSFocBzhjVBr vK4gUBZaau1= GROSS DESCRIPTION t1ztlWIaWKCbzQM9JrDnOMGg (test code = n7nsm7TdaPMjsIExAVvbeORs [id number]) ibRsxt39wBP9sO98CZ1qLVNo AuI6MIIrjlE5Dce4XFFhTRZm dSYyA285v5psr9fdxbHfyCD4 PCTnIAHuA5HqUB8fWJKzoBGv P33mbLRxBHE2PKXcVZKzjYYt JCDxBTZ5MKYllXCaN5edQAPq IK1nummrAXoiVUsmJKFqmEM0 YANmyQHeG1MgPJCwGJbdZUGm gna4SrYrFl9kdXYrqJrhNZvp OWWnz9aiPZVseDXdVQU0SCgh eMMbKPIjBBDiRNg3THXzRMpk vITpOO6jbHcyLachnVcbw3Wl dCBcXGlkIDUxMDAyIFxcZGIg I5HSKBRwKWWqPOXtMTSbLXv4 TNwkI1TGVFXnPAWrMvu2Pfn3 TnQ6PKy0AIDEVa3kOzI1KDs5 NyE3UKY2HZNlFWtbpZOcWCeb ZmwgXFxmIEFyaWFsIFxcbmN9 AAKzHKxfJTSzEqRyPF2oNJnz uFktJz8uNTuzBZIwbA5pDTL4 ZQzaQ2SjQJ78SMXNhYE0pZ6m CHyaCLBalzckqkUeLPQdQ1Cd dmVkIGZyZXNoIGxhYmVsZWQg q3v8tPR0iDAzgYM9hYGacVgd JgYvFS1kpGOcEU2dOWeqNCzx lcVfg1OcNK90zZMwgjKablOa QkT6IVQwt45uKRXvfENoDNSu EhKuU33qMY41zLVfG600nYIo cUqroYrinw4mIEZgyCAoxUX7 MXHpaF3hnX97mpKqwtCTJM18 UDIyaOSmJYT8XL2mGHZgxyqs KMCdMFScHLX8QBtvdN42lGOj XGZzMTZccGFyfXtcKlxlcGlj n2OkdRKqUZfpLAFyXLNcIAqg ORLiK1RPDSIuMXVpSARqYIVe YZn0MVweR1FMQEInFODzAqb4 LGE8LhT0BWw8MEOXDr2rMqH6 TIl4PfM2NCM5UVMeRMnqfOGh IFxcZmwgXFxmIEFyaWFsIFxc zwO5HNGoNrKxJr6nZNeyiBow Uv7oNNjtZE60KHCod7Njsxcs IyfdqLVyAXS9EXLjj97dJEAL LlxwYXJcZnMyMCBSZWNlaXZl ZCBmcmVzaCBsYWJlbGVkIHdp bRxtgUiyTEUlmBbdidYgK0V2 emMkFH5zANOrHEOcU7WnALLl J53yMUWuuS9cUUYbCU6aXANc sBK3vG1kXLLzZmSymhLuYASu PBQrdXDjydDychEpr8BqGmLu eP1drRCip9MfTZY5Ux1vfZKv NJKnodV5w7WcZBgkRBQrYkvn QWEaI4UaJ5BqopGykZYuVUYb ilJgk9ayVWW1EECrnGUqkLKb IoLySyjgKEQ3g1niZBLryRKd LHK1RQqjtFHaMRTaATNiBNjd XnZYYbNfWuQ5ZWJ7PRB8PuM6 BVv0PESTYgTzJnScFeCdDnYp TdUkUHq7ASt0XTtUHcE0HHr9 IXHsKPGiGQMsXANmORq3YUIt XFxmbCBcXGYgQXJpYWwgXFxu Q80nQnXrSVGQThFCdY4srFCP g0TuCWURjYpltvwcLzzjkIFd WEB3KFCbf66aVLPNLglpETBd ZnMyMCBSZWNlaXZlZCBmcmVz aCBsYWJlbGVkIHdpdGggdGhl AJXvxNpgncJyN7A3ptPrFK0a XSDhRCZjC5YoNFClZ23oEBQn nV3bGIDfQH7jSJQfxQX0yN9c IDEwIiBpcyBhIDAuNCBjbSBh bnSdogRab1ZaEmWwjF5weQLv d2JaFWNrTYidWM30SFAonW50 jvUjzNSwDQUml1KnoSy4kDTj OAdiFAPepZ9uwW1fQdLvk4mo pBrml2QojIUfXVluNIKlqWSi IPiddT7fOzSio8upzPu6DXpx njQ0EQZgqd07XIulODFbA2Zm L3HuTKimBNT5SOTnNeBmVTXy AU5EKvNmLDRxHaBxVIOzNAw3 MOp5VR8TLrWqDDXrDER9SIg3 SEHyENc4TGwsIN7ABNLmVni8 NclfCKR2XZK8OuRzBDFbGbXi DYXtKXhjRsEVpjcdxWVoNV0o tDsixlBrHASgYZy8sombYZUc B1a0VXStyUNlBHqvTmUbVJXh clxmczIwXGNmMSBSZWNlaXZl ZCBmcmVzaCBsYWJlbGVkIHdp dGggdGhlIHBhdGllbnQncyBu XA8aJAFWCo3jDW7sXOu7qsoo XFDuZ9l4MBOeoKArYNxhOaLk IGlzIGEgNTcgZywgMTUuNSB4 GAZuLWY1JXOgXVUzuMPkyL3w TZPsZ24obrGmZ1XobEvgARTt cGFyXHBhciBUaGUgcGxldXJh CMFwm6RzTIydIBMvCHUhWZPs w5XrQAYhVFHck54cDAXgJZKr RPagNSVjQEIcRF8sWJRcDwBc u5iiHQPgcuPiIZ6tQOWzFIQc SmBnf12wDRG9lS6wIEW6PI3l UOKbcdRqz4YvrXvzWNGyOHSf bWVuLiAgVGhlIHJlbWFpbmlu JkQthRQ4fjHyOCB2boIlN2Bs uCSyxoJqTW0mvx4bdgBtwoDu b77oy0BcHpd+IJRcBHUqnT5h EQofRWHrnvhkrHm0DDQhY4Mf i31oBWD0tmRyOKXxFOqcNZSw KbHssMLlJeZdxTNrJfKxZ80i aWxsLWRlZmluZWQsIGdyYXkt fNJyKZNedUTaKY2mw8Llb6Ft ryVzKJ10EUNiMTGoMBJctDL1 efSdxGpfkJGjlmJlMnsnS27n EpPxpOB5fGGlyBAzBU4rmDhd YMcyqMFaH9czKkRtBO4dXNPn UCZiYjKnO12jLsOdkQY6iXBu tNXhmkLaqiOpZOPzKvC7XLHg CIM4WEPfFEDalHEoqCnxGIXr yA6bMZowkSJziT75OXKqro8l xa5zfEioWMVzOUVwzTUwMP4j GTGsRTWin49qlZicXKWsxaKe T5x0zMTmDF9psxnthvTxmvWb BI03MXEtUNQdp04cwBwhKDLx ZXVyYVxwYXJcflxwYXIgVGhl IHJlbWFpbmluZyBwYXJlbmNo oN0iSVysWUBiUYZuyjXvr5Di zja1QOYvnUSkb2JluKF1mBPs VEUbB2Dsi74zNIcgQPRdSJQg cEoyVQj7JZFkblUdr7LluMf8 dVOsDuMiW3Jsm1KkdXqycU0x iwObjNTeUMNxUDGdy8FcLecb RVIngXEtGGmlpqRcg7SjJhqs oQ0wQGTarPR9BFVwGOZxXAut ZNQqfBPfXHYeY2Cyt47sI68m AOrwrrgiCOCsLAOlJWS5AZXw dGlyZSBtYXNzIHRvIHBsZXVy CUyzCBHnJXDtQJE0ATDcsQKc c3FnqVI0nLMcMT4wNTDeIRMl RJJeYdIxqEX5mvNuXFSsWPIe y52qlAraIAZVQdxlMjQhgxEo NJ45YMEjkvObg0Tpa0Tml04m RRZwAPPfk5NtaCxfkDArkNJt KElnz2hlwkYmeHFgGNK7ByEd WCMvVTVvx4TnSsfekr5xbITy pXpgNHSETSwkZ8Wdj15qAGBb TREli3WxrSrroSTvgECwvJYn v9Jpy8icINJnLNvmDhBvTlVx Z98caXMdeO23PD1xZLBpVOie CBXnK5RcWVHzFJX5BREfl5Xl d7BmoREyJC8uuGldORqnwOYe W4ahKPOyOY7mq7EqPPOqJKGk A0MsnWenCPLFXQX1ABXfb7Sh k1FivUWgZZ9neRqoOGjizXOb T2uaEATnPG3aIJAbDStxFY4v ZmFjZVxwYXIgRDEyOiBBcmVh UZ3pZCWfTMBvHYepK72zN6Qj dGlvblxwYXIgRDEzLUQgMTQg UdH3qibifm9mfpPwQSManuSn H0f6fOYlzTJyCOYxiqOEmBCn a2WzTMnyOBRpJGZVGZVbYGZY VTwXC5QGTHVhx3kvjQupe6Gn uQMlSK84RMYcbACyHDN4HP5u fVxwYXJ9 MICROSCOPIC p2qquZPqPEXpyFR7BrBuFJUk DESCRIPTION (test h6kcb5WhoQAnoZNbPPnuvLMv code = 3371) ktAacz97hRA8bO46PI1vSDQg UhS1GXOhyoH5Iif5OJUuFMXv fGJuI450g3bvs7duzrIaqZA5 dDvsBYQqayccLeH7SLubHLCq dtaqLTm6TSwxGYZnrVC0LMVy oAMgR1UnVNYvKL2wdeg8HNH9 PQzdMQKgCwZ5RAArpTDcRSIg xLgaNOyrx941GVW6OvOgVEEq peJonFbznH2aGoOqLCNQBJYb u2HhCNMrGBTgonmrWGOiCOKs cn0= [facility] [id number] 08:58:34 Test Item Value Reference Range Interpretation Comments Case Report (test Surgical Pathology code = 104) Report Case: [id number] Authorizing Provider: Ernie Washington MD Collected: 07/15/2022 09:20 AM Ordering Location: [facility] Received: 07/15/2022 11:36 AM PERIOPERATIVE SERVICES Pathologist: Willian Restrepo MD Specimens: A) - Lymph Node, Pulmonary Ligament, Station 9, station 9 B) - Lymph Node, Interlobar, Right, Station 11R, station 11 C) - Lymph Node, Hilar, Right, Station 10R, station 10 D) - Lung, Right Upper Lobe, anterior lobe segment ADDENDUM 2 (test code n6tegGIuNTJafCW7UzRvIHIg = 3382) y9bhq8XeaKCmsKXbPVsrwMBq efKili71aMO6jX73PP7eNXCs WuI5VMKxrxF7Auh5NCEsYIDm cENfC855x4biz8bqgvTkoLX7 hUxeVFBppkaiYeE6OSgsSVOz wbvnPVb9UYxyVMCpcRA9AMJf uTNsQ2RvMQNyON8gkma2BUM2 GHeqLZXiSgJ3JVHudHBvBTGd cFvmQUfjz162PIS8FaRjGANo nfVfqYkzcZ8zSlKqBGOEvAzj VYGpKQWnNMVdTHjiTWCdnM7z IAnlm1NpXYH4npOvCCXqefMa xcWoxTd7sfBhNsBNL9EGTS22 wBH4fD3iDKIfj4NmsqyceKQa Zk1iuCAxYGR9IO2pp5wdfx4t xOAyZNnkLr1qTIGtcpnene1p cBGgCRTdhfUHCYEVMNZ9YMyv YXIgRUdGUiBNVVRBVElPTjog Pk8FMTQFGKSIQRRJWDSuwuto YXIgUGxlYXNlIHNlZSBhdHRh E6hjFLDyN5DarmEpOVJuqX4d dUOik3YvXvXvlPzmdbSoDUJv aWxzLlxwYXJ9 ADDENDUM (test code = f5hpnLPwFTZjeML7BvXbMCVj 3381) h8lma1HzjHFgjSVaXAwciGKn xeVewx69fRZ9xT62DI8xJNAw LqJ9CUXrjkT7Ycv0FSMmPWNo nXMvU755a3bwg9xrmzGahLJ3 vThyHRLkxtrfLhK7HNfoXLFx lbqbDOg6YJqiYLBxiTI1EDAr wJXrL0HfPTXcTS9oclu9TKE2 ECwxTTCjUtN0NZKcxERaWIDc lSkzYItkl729IWI9XhTkJNMt geBynXxbbD9gWrNoIIQEcTdp GNUnRRZxKGUlTYqdCSOapL4y XLmeu1DlPDX2npRsDROitkXv qSzgWPFeq7GtuLIrl8ThCEBX QCLnqT1jrH2li1JrpO6bkDAn Ne5cmBDaGSA0KJ3ex6rpec2i yPRqLWvzAl2jJWSkibtuge6e cGFyXHBhciBQREwtMSAoMjJD ZbFmjI1sOXg8WZQJAUHHF4NS GJMjlTVoNLWBGcOWG55XGCcv OTAlXHBhciBJTlRFTlNJVFk6 IDIrXHBhclxwYXIgUGxlYXNl COVdUwZjJFAlWTO0mVHcgLBs JOOvZX6rKWZjhhOwt1O6JUGl qqKlnOR3eAMaBKIsa0ZyiHDm IFxwYXJ9 DIAGNOSIS (test code n5imvSFyAMWok9ukNFKugXJc = 3220) ZzEwMzNcZnRuYmpcdWMxIHtc cnRmMVxlcGljOTYwMlxhbnNp GNJqcOInB6GlfpxiMDafTO9p GA9lbFoekUJqgPSdVDOkHzUx z9yub819lPEpj6lhNREUhgnl yIc9eNvoP55fm2K1JgohI7kc MYH4TVfiqhFrjhOgQDPonMD9 CQhkdpTsERGxH7JsWN9mSNse mPWkDEZ3mNtaNHLlqllkRfS6 JYpmLSQmhejeMCo7KHomTAPt dXS9KKVkcIAuJ0QoXJGdUB6m azb1MTL2KCrsSRMkSlU4CZLw eCXlFPQjoTxzJQksd008QUV9 DyQiDAVndkQohAcmhC5iVeFx NQexNaAwBI4xEYmGTDbePp8M IIyhLRXBQY5ZRGEXFHbXY7PN CC1HRKHQLMEHEH8GKElpOIIZ Q3rQBH1OYrnoBWHdX1PnTALg ICBPTkUgQkVOSUdOIExZTVBI ZP1LPIRjRJHiEYldlEPcLPGe hpQdfABzKITqSHIDQkOTSL9E LWVEF5MYFDSNXcQCLlfSLnTY VKJRRYTILW3CJFPdQqirIGeC BUUGT309LLVpaujbHtDpAP3w QC0CLPOUPX6DT72aFArYXPgr Ln2YPFKgLC8jMKrsJECtdIAe JPttSaWzjYAaCTIxYFKGOY8A CJMXA5PQGBIRHKrVHvgeX9OF DBxFXjSmZUJpPGKSO5zERP2Z FiiuSZIfJ7NrIWVfVJHKHmEp LyQXBPkNQPwKFOXYPT6IKCIb QCZlWMtluOMrSDKfpkQfM0Eb GUVvybFNCfZYAF0CGGCHUVsW QZVQWDSGZdNPW3FFYIVQElRI RftVYdSZH7DHEOYTF03PPsHm FJXJB78GIhULO0GVVFq8PXDp wlkgMwZjbg4pQN2OVfOSL8fT SKMENHMOB2YIElFNGu9FNTsr EI6EKgqTQCFPWsNWIuGSLLrV VEVEXHBhclx+KOFluurSL9QR IVAVGC7YF7gGSlOBTIGMSnZL L4tSCFUhKMZxVLvdOIGMLrNK ICgyMCUpXHBhclx+LSBcflRV IF2ISV7NWMHEFyCQBLKaHNJZ SXKUWoLYAcKKHOQIGFEIMA3L JpBPN70zqZJlEM8aTTq+Tk8g YfkCR1IHNBzzIWxZCWXRCMKX FnLPC7sBApAQWwRWKQXOSGrB SUVEXHBhclx+EHEvac5RJBuL NSZJV2TON9AJEDJHEWjTVgEI FI3DBGnTXFeKSV2KWRIYQXLm cRMaUJ4hLAh+JVQJIP5FITmO EQtqZvSUEBZGKT2XZP3JPqmS FcpcOzLYYCBTRaCmPi2FNN0K MZiSXgUSJ6jjHZZnPJVXKPWM E5TIIPovUZNlMU4cVPBAMDYJ SGipMANRHIDKX05OFVYqvsIj TDNdTALWDAhGGBzzCSSYDn3I QVRPVVMgSFlQRVJQTEFTSUEg BD3aHUaMVNZHI8qSEb2TYaCh fYVjZK3dJQt+YIVBFH9YT8nQ PwGGQFIEVU1ZLnLiKXJiLyIS xMKgCNhEIpO3kSslAVAtNKob NYU4d9odhJXkZZOqoMEzXFAe MFxhbnNpXGRlZmxhbmcxMDMz AHD8ezFeBKIoITsmEECiWTxw Bs0jhHSznProJsLaYTIup3el hiEFcyphhNw1u6ooKUYwNlH9 vBQiDSrhE2wjjqXaaYOvZVCq NFk8xG36UTPufF0mgYPvQHos ksDhGuZ2QFawHAGcUnM0WOGc oENnWBYjW1ccXGIyXCcnJOZo SLrwqMXuRHM0lWzrb0T4qOOw bSJfrJnyZrBmNmBzVyKYq4Ar BFi3qFnrC2FxKSXpLwM9qQOx TRTiBYcrFZMzGBDgcrU8eH74 WGhnscM4aHDyh0Vbf70zk637 yG6tlHGnATX1RGKdUWRvcOBm DEObSWZ7BKGamRYoT9goRQJg JU9pnpniVFpjCNdlORPcdJV5 HWKqzUXiP5CgIOMeWDklVBHe xok2KdIvWl8xdMCfxYczCOcd t9qxs4bybJWfZxs5YIOoUbMw YvszBEkcr9Upy7uvJRZikr6v RDO9xULicCwfr4U6aOUfYFDb xSFhWNNtJO0ioJZtJTSrfY3i cmxjXHBnYnJkcmhlYWRccGdi sxNdBw0ivNapAJG3LQimW6mq rO8gNyB7XUwjJ5boaA0aBUj5 TIghKZChtFL6qzT4XECztGWz M2AbvX2rSBBrFZ9eloa3x1ce USU7PBmzMQRxBsV5flG8PFLm dLXjIKDiuYazNJndu878KMX7 OoTcQZPne8NrC7AvqNoeH60h lKjmP27oSNAudDyipD0diAhd nM0kJhSeBoZlYXvfiBclRW2w IWXwP6plmINnZQKoIHZxM9ar JxHnmT6cnNaaIWsxjeCyNFEv Wdm2ZCYguDNyPGRnEgv8VKEc LDSdU03cjxfcDHO9jG4hw6ei f4RaUVwbGBG2RBAxj38iGBcp edO0MGfvEg5eSnWlIPK3XQje YXJ9fQ== COMMENT (test code = f6fsyNMhGWKlmJF8AlYqIZQd 3359) g0obs2OojEPouWZcYXyxeBDu mdPdsa65sUQ4xW16NL0lUQYy DeP3NMJntjQ1Bqa0JXLeBUYe yCSdF227q8lzz8zhdpQcpFN6 aOwvMTMotsdtQdF4WKmvHIGq pcjuBKw5AKjuWWXfzHY0IKXf iWUaY9GgNBMkMU1hclg4IVA9 YKqsZYPnQaO1MPEnsDOjYVIt xGufUDbvk132JLG2VzKpZLUm wtSpyAzlqX5ePnYjHPJJlO2u VXFhSPRxr1D8GUt7QMYoagZL iT6fdlpaBYTviUFrGH8jcm2v eYntDQM8POAuzzuxWRNyIUXe p2Lpz8cmbTQePKXvPR44KXOg VZ0rd8qnwk6mgALdPUVqgdQh dP3mOEArWWEztNIorIjqFv2t FbHgwNn1dxP8xCvnXBHiNPGg lL1plPSrVBwoTIGwDWStTJFz ZHVtLiBccGFyfQ== SYNOPTIC REPORT (test LUNGLUNG: RESECTION - code = 5765) All Mfnbnvpga2nr Edition - Protocol posted: 04/09/2022 SPECIMEN Procedure: Segmentectomy Specimen Laterality: Right TUMOR Tumor Focality: Single focus Tumor Site: Upper lobe of lung Tumor Size: Total Tumor Size (size of entire tumor): Greatest Dimension (Centimeters): 1 cm Additional Dimension (Centimeters): 1 cm Additional Dimension (Centimeters): 1 cm Histologic Type: Invasive solid adenocarcinoma Histologic Patterns Present: Acinar: 20 Histologic Patterns Present: Solid: 80 Histologic Grade: G3, poorly differentiated Visceral Pleura Invasion: Not identified Direct Invasion of Adjacent Structures: Not identified Treatment Effect: No known presurgical therapy Lymphovascular Invasion: Not identified MARGINS Margin Status for Invasive Carcinoma: All margins negative for invasive carcinoma Closest Margin(s) to Invasive Carcinoma: Parenchymal Distance from Invasive Carcinoma to Closest Margin: 2.8 cm Margin Status for Non-Invasive Tumor: Not applicable REGIONAL LYMPH NODES Lymph Node(s) from Prior Procedures: No known prior lymph node sampling performed Regional Lymph Node Status: : All regional lymph nodes negative for tumor Number of Lymph Nodes Examined: 3 Dusty Site(s) Examined: 9R: Pulmonary ligament Dusty Site(s) Examined: 10R: Hilar Dusty Site(s) Examined: 11R: Interlobar DISTANT METASTASIS PATHOLOGIC STAGE CLASSIFICATION (pTNM, AJCC 8th Edition) The suffix m (or a specific number) should only be used in the setting of multifocal ground-glass / lepidic nodules that histologically present as adenocarcinomas with prominent lepidic component or multifocal tumors of same histologic type that are too numerous for individual separate synoptic report and that are not better classified as intrapulmonary metastases (e.g. numerous carcinoid tumors). Multiple primary lung cancers showing different histologic type or different morphology based on comprehensive histologic subtyping are better staged as independent tumors without m suffix. pT Category: pT1a pN Category: pN0 ADDITIONAL FINDINGS Additional Findings: Atypical adenomatous hyperplasia CPT Code(s) (test h3eouWPxKMRafQR0MeYaNITa code = 3357) c7jfz0BfpITltFAxVReqlMQo aeIpck14yWI5mG20PV7oGSEu HmQ5FIQbayQ9Imw3USShAHOd cEKuB787c7qop8keneFhxLK2 yRrqDFVnkydwHcY8GBylKOPl lxysZOn8FSooKTKqdTC0KZXj eHPyY8IlUZJcSS0rtxq0ESD6 ORfoLJYrLuT7RIKnvTZlPRDh nKjmERzch577JVZ2BpPwODNz ibXktDjfuQ7bIwTkHDM6GWWl GAqaDIVzTNtfMXUHJ0qzYOZ9 CLINICAL HISTORY k8idpWHsBSSykBN3TeVpPMEy (test code = 3356) j2ioy2EzdMLpgZXhXGmbcWDn zsMfps55vWS3xX55XR1jBHBh RpN6WBAdusF1Beq2ZOJhMIKv xXErV325m3ver5ozvvVemSU3 rHyqKLJvqpwoSsA3LVwsMILq fhuzPEi3VUdsTEBqoDX0QUNk tQBgC2IbVHDiEK6busb1NDA1 JDalRZAoTeH9MIOilGFdIBTl gQtrNUoaw796EYK8TaVbVTZq bnIbiSuteY4yOeUrVTGYTRFc q3DwrtOfbq6fLDTcwGvpoACy yO4fASRhtg3= GROSS DESCRIPTION j1vlfBTyYGYxuIK2FvKjATRd (test code = c9cbp8WjrAVgwGYwVRguiMPq 1757678689) inFzom29zTC1qL71LH7oEVBt VxZ3CNBcucP2Hcw6PHAuBJUv bMMcQ120k3xbc1csofPahEB5 ALVlOIKfZ9KxWY8vFRYfuYHq F47tjBZyZLF1KLYpPRGduOQm EDRxBPD1GDCqoAIcM5csBCLh IT8rifmsEHvcVGuyASRjnUH4 JIUxjEVwO2BiPABzIIleHHWi jpr6NjYoUc1ilFWeiOywKKrq RNVmy9odDXUqaPKrZVX1ACru jVAqVQVhUAJyCPe8FSRxHNik rVAoUH6yiXbcFaquwQjoy1Gq dCBcXGlkIDUxMDAyIFxcZGIg F5PSTKGiDHHxALTxOYOeOJx3 WRzgU7VQJEHnTZPaNcc9Dns9 PtY6RZv4PICOAb8uFlR9XUw5 QeH5PCN6GGFuNOjelZTwUMqn ZmwgXFxmIEFyaWFsIFxcbmN9 SJHgIFmdMEMcMpTzWN7rGOis uGooQn3rVZccYYJwqH1lTUX0 OEfdS5JrFH26PSHSnRH8gM5f TNuhIHAzubmunxPlBFMgZ3Sw dmVkIGZyZXNoIGxhYmVsZWQg y7x8wUA0kHLglIE2lGLdfSbv MoXlHB5zxYOjZD4uDNuxPBtu zhXrb1EtJL23eBPoniDjnvAo EsQ8SRVot82xVVJwxYWnVXLq YmQoH65hOR97gSMoV577tNVe bLawfKndaq9iLDPfhFQywIR2 TDTdnP2krP10xoPltaITMC43 TPDfjKDoZTI5NY6rKYXmjlzr VVLwPXPoPKY6GFqnmE21tATj XGZzMTZccGFyfXtcKlxlcGlj k9GzuAKbGRyzKBEuGYIqFHns ROKmO1PNIPWiYTOcCDLmKDJr KMo4OJgwK1NFVMPxQWCjAoo2 IOU8XjJ0DLk5IJELAi9oSuM6 MZg0MeP8FHA1YBXgIRhmrPDo IFxcZmwgXFxmIEFyaWFsIFxc vcS5OXDuWoRrTq8hDOlglNpn Mi1pGYyvGQ42QSWbd2Xzwxae DalubBWyZIN2UBKec72qUIKJ LlxwYXJcZnMyMCBSZWNlaXZl ZCBmcmVzaCBsYWJlbGVkIHdp nVdpyUriZKBxcTruurAoO5T0 vqXrRG7cTMScSOOiP9XdQNWv T05zTNVzaG0dCQLxRU7pHECf oCM3qW2sYTCgBnEoapIaYKSu JMGdaIEnuuEchkMdt1GcTcFz fU7cyGRug0MiMFP4Gp9wkXMg ENQdguN2y9YqBZkyFJFuJzai IQMaY5MbM0PselVfmXJeLMTq zlZbv1uiVLL1BNMnrNPqdIRl HqTaSounWGA4d9euAOFzyAWa LBJ0RFztjSYaCQAnSKVaCUnl IsGEJlPaXzB0PVY9DCL5WqD4 ZCb0IFKKVnBfUyTkBcXoFxFc XyTpFJi0ZSh8OAxNZbZ0ZOl6 LEFePBSkBTQeWACvKQe7TWYk XFxmbCBcXGYgQXJpYWwgXFxu V68zOqQaQFSJTrGDbI1egMEW w2CoIQMEfCmxenatXydaqQOz LMI8IFZxr91hSOHWFzfjOTUc ZnMyMCBSZWNlaXZlZCBmcmVz aCBsYWJlbGVkIHdpdGggdGhl JVCihKatxfDiM5E5lgHbDJ8r WJPjJXOaE3TsQBEcY79jMDGn aS3sCVCeQK7nGTHtrBA5zJ0b IDEwIiBpcyBhIDAuNCBjbSBh gnKzgtArf1DgZnUlsV4luVOi o2KhJOUmPQrvTB12XIKudS25 lzFobSQlQUDfv3WmeIw0rGFn JKjsCDUdnL5seV0tCuDln6gc dQcbw6UimUVuGQqcEBPenVJw BYvetF0dDtCus9snbTr7BXaz frY1FTUhyw47OLgxQJAeR0Ow M1EhMQseLNF0VKHnQaNsEYIx UY7TLyUtHBPfQxSiMKDdHNz9 DQn0UT9TDrSqFKCiMVA6RJt1 EMHaKDj2GOyvLK9UHEFoRac1 TsrxFSF3YBF6FaUyVMFzCoJb KQMzBBvaLmHHctopaZOeCU9h zFsfyiXdEZYtOYk5zetkFYGw L5b4MHHttYFoCWshZlLnGVJj clxmczIwXGNmMSBSZWNlaXZl ZCBmcmVzaCBsYWJlbGVkIHdp dGggdGhlIHBhdGllbnQncyBu MO4wKCIXGx6jJV4sSGy1zybf JMPsG6u8ZKMhgALaEXnwOhDw IGlzIGEgNTcgZywgMTUuNSB4 EAMlOTV4FTKmOUYlyGAjxU8o RWIaK30iinCxM4WxkOlpZUCd cGFyXHBhciBUaGUgcGxldXJh IMHca4EnSZdoPXVqQKUnBVAb g2TtLYHhNFHlt59yJVKsXFWs IVbkEKJdIDYjUY1hKJLeNiYi d2mbQXQbxeCdKF7vPKDqHUWb JrRgy21aQIQ0yJ9jLOU7PX6l OWJwxjAin0BgvWxbFDQqQYRu bWVuLiAgVGhlIHJlbWFpbmlu KhWayUD8bcLlUAO6zmSzU3Df zCXnwbVcRW6otj4jpdWqfzWg o16tv0AvWkz+DSCjVWVdvZ8u WMwrYGXhrsxexMj8XCNcD2Uo r59nQWW1idOtCRNiPBqwTJNg XuMycEDvIdKdkGOtVqJfZ12q aWxsLWRlZmluZWQsIGdyYXkt aOGnTQPznCXtRM3bk8Jdu8Ng uuWaKJ50WTReBSIyWCGsqXK6 ysXzcSyyxHNxbaZgSbsnJ28q RzWevPF6gMMtnANmFF5lfEqt FEvnxNKjH3anPiAgUI8zYUIz YWUdIuTjB24uWvFtaIG7kSZs jBRdyxPwsxRkUPJpUlQ9OXCm TYW6QYZjNWJiqXVmjKvuNUKj wR9gMIijgEKtnB22PMOjzg9m yg7ezGrpEVXzGHQkiTHfBO8z HSIrPPEyd33mlVssIWTkjoZf F8v8kFAiPS9uyfzsgiWxtgCg IG08WJZlMNCau33chXkvZNVk ZXVyYVxwYXJcflxwYXIgVGhl IHJlbWFpbmluZyBwYXJlbmNo qP5fWQfzKQKsASQimcJqq9Vu yka7KXKylIQdc9LweKZ6iINc VZHwF4Hkk09xTOwtLLDrKGZq aIsjNRn7XRZsudOzk1QsuIa4 fPZgToHwO3Mij9VyoAhfbH7i nxBniUOjRZCrMZCrm1MbDcho BTWggUIzDMnsqwXeb9TvAlez fM7sCGKopGQ0VIXpCSUpCGll BQKvcFBnOEHxI1Hcc38vD14d MVunwogdZYPpPYDjJKU5YIBd dGlyZSBtYXNzIHRvIHBsZXVy ZHgaYCIaPKIfVXO3WPEmpZRm o2CbcNZ5qRZcHC6pDFRwEJJq SPOgLaRbxSX0qmCwZWRbYDLz t11ohGfeQEIOVezjEpEwwdHt IL39MIUlcuUsw2Uvm0Poy41k JZSlOOEwf3ByhBnqsGEvmJUr XIaja8sirwPvlTDjSYQ7VsKd VKPpPDHih4BfPxjtqn4dkTSj ePyrIAFNCRdxM4Vdc91xXIEl OSUqi6KsrVowpVImnYYoaDUb h0Luk6fbYMPeGPllMxOtEdBc X14ulKUsmX69YQ9iXPCnDLeq DZSvJ1NeODZhAVZ4MMNnt2Ey x0CsmZViFP1cbCdiTGjsiLVv A7zmOMIrJJ2xn8FaNJNiBWPv S3EozYqoVMCIEBI5TGIll1Zs a4YvqWZpTS5hgEuuFRdtuGRp G4bbNXWlXL2sOSUiHAgnLA1r ZmFjZVxwYXIgRDEyOiBBcmVh NR3cVVGlRBSxXEfnD19fI0Cf dGlvblxwYXIgRDEzLUQgMTQg TnV8dfxrim4eemOxYWTrawTf V6f5aCOssXVmVMRcosPUaIEt k7ExEKhdZPLsCWYVUHStKYSW IOcJY3EGCLXzv9bykEojj2Km vNBvJY51BRUneMLmRSJ7RU6u fVxwYXJ9 MICROSCOPIC b6drcCJxTSZpvVJ3GwHpTAEn DESCRIPTION (test s8kdl1SdrYHwqZWtTKftcBYx code = 3371) kqOnlf61nSO5xD33FB1tDKGz NxB7WMQeozG5Hka7UPBmHRPa zIWoK521r3beh8ajzaOzkKL3 dIavQTXijmnzZvM7GUjjZDId tlpbPAh7WNgsNBIjrQM7TWHz uFSrK1AlQISoVK7xghh7JYV9 NVsbPSCxTzM3TTXguPYkQMZq eKqqRAows949NKS2EpPcUSPk nhIahYxbbS4aGaVsMFOGIQQj t9WkRANuZLImhhapHLRfIQBi cn0= [facility] [id number] 08:58:34 Test Item Value Reference Range Interpretation Comments Case Report (test Surgical Pathology code = 104) Report Case: [id number] Authorizing Provider: Ernie Washington MD Collected: 07/15/2022 09:20 AM Ordering Location: [facility] Received: 07/15/2022 11:36 AM PERIOPERATIVE SERVICES Pathologist: Willian Restrepo MD Specimens: A) - Lymph Node, Pulmonary Ligament, Station 9, station 9 B) - Lymph Node, Interlobar, Right, Station 11R, station 11 C) - Lymph Node, Hilar, Right, Station 10R, station 10 D) - Lung, Right Upper Lobe, anterior lobe segment ADDENDUM 2 (test code w1dicINrEUUvcQY7RtDrCCUd = 3382) v6jez4AznQLvbAEcIGrrsHSw zrYxyt35eZH6uO07HM4iGQZm XtO7JNKkrgP9Jfj0OMBeQPZw nGWtT108p7yrk3ywleAorPS8 zKpfUQMyqqkmIlE1WKywRJAs rtcmYOt6FBggMQVihPL9LUKi rFXfX7XcIXWsAE8mqoi8AUW1 NYykBSLdToZ9TATxjWMgEUJc vFleVFhbb262ZGA5VnWnUAPs zwXifQbxkO8vSkNbWPSBqHrk RQUtVSSyXTKhSIbuHTMvgY7r SPsfu4RrAUN6kjCxHAGoltQe zmCibVx5gbXqAlGHX0RQAO65 pKS5hM0fIXBzv1QecaiylFTn Mp4jrVEoITC9NB5no0pnni2a bQCeDUcwDo8eCVRgtozlex6b cPYmDRMszoWISNMJFRW6GVgd YXIgRUdGUiBNVVRBVElPTjog Mj6TWVNOOISWGJQFLXSclnoi YXIgUGxlYXNlIHNlZSBhdHRh Y1cmTAKgE5XjyqCkJHQydN9q iUWcm3MoOcYczFlhpxQmUEFg aWxzLlxwYXJ9 ADDENDUM (test code = p3fdaVOqOPRmoAU9SyTrWYGr 3381) l1rpn0WgsQOfoTZnYNhkvLDd fvQdsa92pFH3hU54OY0tRZAg QxX6WSXcloS5Gio0IOMnEWXz bOGhF563n2osk0rsumNbkIW5 tWhjTQCkkagyOiN4YVrtHNGv oareSRg7BXliGPGxuUI4DSHj aQWjZ1VaULPsQX0dged7JXT5 VPvqIMNoKpQ3TPVfdCBcVHJx dBlfTLzky650FWP2SkUrCSOu huKgjUquqH3qBaEsFLSBhAfc ERXqUBDmZOFaOObnKDVhnK8s NXzyp6MbXTO1jhFpUJTljiSd nDtdIQRwt1CqnSKvg0RoNHNW FOKvoX9dlV1de3YujP3ukKTo Py0bxDFvUTT0ZC7as3ufbk9r qJRgOFryLp5dFDElkzgqod2d cGFyXHBhciBQREwtMSAoMjJD GnOkyS4sLTb8BCWYUWZLR2TV VDVvuDRpERQAJiWCV83UQCxe OTAlXHBhciBJTlRFTlNJVFk6 IDIrXHBhclxwYXIgUGxlYXNl QIUrPxDvXZYiRVV7tEHzfAVg MWZuLD4uCIAyetYti6B2GCAk xgObkWY7hWTfMQXez4SwqGFc IFxwYXJ9 DIAGNOSIS (test code y4ffxJWlLMMqb4phBCAejLFm = 3220) ZzEwMzNcZnRuYmpcdWMxIHtc cnRmMVxlcGljOTYwMlxhbnNp WQPnaJPgX1WfcoaaDCzaLZ9h PV6anTeoyUQdbBGxFMQtMnAf s8uxa847wRKgv2qqRDSBkczn wCf4lAgxA72rm3K3TibpX2mx YFF8ZPxintCzkmVeILQplDK7 BDkjkmVqUQVpA2EvTN4kXRpg fMNwZIK9yCrgYZPxnqxzJuM6 XNkxPZMojqhaNTa9CXbwFOLm aEU3TAUzkLIqT8RySIDmLW1x hlk3ZKK1LHptNTNhIuK1CHBl zOUkMCBvrWrdFLhlb305IDW5 VlQtMWCnpfEgeRzbrL0wAdFw UKkmVqZrYU1lCMxXGAykVk3Q JNxhCLCLVX6WXNUPZGuVL3MO EU6KDOHUBUFLQS3NTXahUQNH K4mPRO7YYjpvWGDeX1RsETZu ICBPTkUgQkVOSUdOIExZTVBI FJ1BJJQuWSElZSxdjFBuTUTw fnDftQUlIQNnDPLICgBLBC0J OYQSN8SWQPOVVdDMJchJLhUU NNYONYHKUS1MTIJgQbfrYMoM EZDGD005IXLzxxjpEqVpUU8c OE1OWQTJIN4MO17mVFtMINrl Fe5SMLGoJU3rZMqlSLUydSFy YAzaNoNgnGOeJYCqFMGXSO7D LVJIY2UDLMCKUTtJCxlrM5IY LPoQHuQuTYUxXSNBI8lWXJ3V PnssACPnH8RwMIGiFGSZAkKk InGHSFsYMIjBLIFVIB4GBOBk TCDyOThayQQcJTDwdfFtZ1Cc LWHvzjISHwSFAC6RJXQPHUlN WCTRTURAJgFNF8IOKIOVHaOM SmpMVvVQF1DYEQBUS79JJmXb JAEDK76DUuWXQ6LHXBv0XSNs tduzSyWedj9kEM4MCuCZF2uJ GFLPLNJFS7DXCyOAWq9YAFsm TU2QVdwWMMTUVxDJUwJKVTwZ VEVEXHBhclx+UEQadzaKB8UJ KPUKFD6II8jVQzMQFELREnKM I1pBCGZhHWIiDSaoGKZPVxCT ICgyMCUpXHBhclx+LSBcflRV IN8TXB2RAKTJGqCOESWlKWCG XFBOKwHEWqOKNKPVPVMGXM2F NuZPK61pvXXvNN6fYUj+Tk8g TdxIY6DYDVaxMSeBPNOKMJER KhYYT5tGZsZYBnQQPBSCNYkJ SUVEXHBhclx+AVPodb4MBSeB IXRUX0SHY1VYSKPHKOgYFgIQ RH3UQYfZSAqKUG2HGSXDPNFa zDOgJE6cFDp+IMSXEX5CYNtQ OWxiYbSQUQYDMI9LLW8RGxlV RvpyGuEVTJBSEiJqXa1FNN2X XKqBTkOAF9wqDEKuDHHLNYLG D0TBSFavGQPvHY3nVHDLFTGX FSvzQBIPOBEAN28MHWJzapTs GMReWSQCCByIPPylUICAAl2U QVRPVVMgSFlQRVJQTEFTSUEg NB1pAGcQRDROJ6yRQc9RNbOa zPVfUC1tQMf+BLHNVN5VQ5sV RfYMIQYWNN6DYeQdVPGqYqWR oZZiENhWVyH3oOceOXVoVGws ZEP2a7tvsRKjQRXokHCbIHKd MFxhbnNpXGRlZmxhbmcxMDMz KIN1zaZpWZTkUHibPSHsEMah Nx1trAOfyZyhHcXuYPSgh4tc zrYLbcgnmFc7f8csHKDtJjI6 yFDiDLmeJ9ocwqMzmELlCQXl MBf2pN51WYJygX4jnSCmVXrl zzIyFrR2ASumXOJdAeO5AHQm pMGuCTRoJ4scKRNxWDquLVLq PCojaEXiIVE3fMaim0J2vULn vGMfeNtnImYzHdWgInLUp2Yv MIl4mRvmB4YuQJNsQiD9qACh LXDeIYscPTWyRFLlonP9vF43 YYubkiM6nGWfj3Yvx30li335 pL2uwAVyOOM8WTXvFTUqnCCd UVIyFME2TLCyyZUkS7drLLKk PU8zuevxMXbmMPluJKQqqUS8 ZSZazQDqS4IaKOItVZitDPTq kjz0TjNeSh5lfULdmXagVEkk d2way2ehaZZaAgs7NPXnUkTb MkdmKIkiw0Unv8yjJJCqcx3o TSR7sRFbaHffm7M1cDGwUUEn bKCxWVTpCB2ufEWwBRZcnU1o cmxjXHBnYnJkcmhlYWRccGdi pzBnZk9hzGjcDAD3BHnfP4bq vQ9sSeL2WDryR4jcfB1cRPy3 EOppKPIuwMS6qqL6VRUdsTTd M6ZjwN9pNXRfKU7jtuc6x7eo AVO6KNvzEFXyUvV0euK3XCMv nMErQWGtvLhnPJlha922MMS8 UfOrDBMck9CrV1EdaSnhQ71o vJzzX47zWTWtsFjjnB8boUbx vU6vZdUrDmMlWErujItcZJ0w VTArM0axqRJlNDMpQBSeN7ud OnEefR2trLmnBZfmgzFsWOVc Dre4FZMoaZFxPPMzKrs6OMZk IMPqX83txicmOKH6nO9nk5ll i8PiFInkKMX1JUZum13zSOgu bzH4JBlnUn6sMwAlXBO2AJjo YXJ9fQ== COMMENT (test code = t0llxEXhNHLedRM2EzSsINCx 3359) p0hmc0IvhDNcoRTnKFkfqUAo eqNyyc31uTG9gC95BT0dJLMp CbL3RGJzncF2Efa8CCGiJQZl fEQxQ308t6fov9lhlkXenHK0 nWteVOOlfmpaNoU1PZyaNNAs ktbvWGt0GRmhYYOjaMI4CGRh fDFcS2PmJWUbGT3proe4SPU9 PMgbPGSrXpE8ZCIuvLLvPFYk sBjaROijj234GMS6RkVvZHQi jhQvoKlpkK2jCyMnIQRPvJ6m AILxZMIeo6C0ZRk9IJAhkiPU yT7qumkeMFJfsBOfID0xbw0b cGzyEBS3EIZmzmhuSCWoABAz m0Qqm5xvsEPyOEHhLB22KHMn ZX0br8xejn0peTFpVTPzmcWc iF0bDYMmYOJkgXIpdIuhAm1o PcAuuFs7qjT1bMdtELSaJOUy pT0brOBfJMkkLOKdNNUhYPNa ZHVtLiBccGFyfQ== SYNOPTIC REPORT (test LUNGLUNG: RESECTION - code = 5765) All [employer] Edition - Protocol posted: 04/09/2022 SPECIMEN Procedure: Segmentectomy Specimen Laterality: Right TUMOR Tumor Focality: Single focus Tumor Site: Upper lobe of lung Tumor Size: Total Tumor Size (size of entire tumor): Greatest Dimension (Centimeters): 1 cm Additional Dimension (Centimeters): 1 cm Additional Dimension (Centimeters): 1 cm Histologic Type: Invasive solid adenocarcinoma Histologic Patterns Present: Acinar: 20 Histologic Patterns Present: Solid: 80 Histologic Grade: G3, poorly differentiated Visceral Pleura Invasion: Not identified Direct Invasion of Adjacent Structures: Not identified Treatment Effect: No known presurgical therapy Lymphovascular Invasion: Not identified MARGINS Margin Status for Invasive Carcinoma: All margins negative for invasive carcinoma Closest Margin(s) to Invasive Carcinoma: Parenchymal Distance from Invasive Carcinoma to Closest Margin: 2.8 cm Margin Status for Non-Invasive Tumor: Not applicable REGIONAL LYMPH NODES Lymph Node(s) from Prior Procedures: No known prior lymph node sampling performed Regional Lymph Node Status: : All regional lymph nodes negative for tumor Number of Lymph Nodes Examined: 3 Dusty Site(s) Examined: 9R: Pulmonary ligament Dusty Site(s) Examined: 10R: Hilar Dusty Site(s) Examined: 11R: Interlobar DISTANT METASTASIS PATHOLOGIC STAGE CLASSIFICATION (pTNM, AJCC 8th Edition) The suffix m (or a specific number) should only be used in the setting of multifocal ground-glass / lepidic nodules that histologically present as adenocarcinomas with prominent lepidic component or multifocal tumors of same histologic type that are too numerous for individual separate synoptic report and that are not better classified as intrapulmonary metastases (e.g. numerous carcinoid tumors). Multiple primary lung cancers showing different histologic type or different morphology based on comprehensive histologic subtyping are better staged as independent tumors without m suffix. pT Category: pT1a pN Category: pN0 ADDITIONAL FINDINGS Additional Findings: Atypical adenomatous hyperplasia CPT Code(s) (test j6uryWAdZRRhfTK6KfDaZDMs code = 3357) f7sxw5AjgTKahOEcULxxsPIj tlAgef67aBL7rP10AM9sYQXj SlT1WZVdayQ8Pjm9ZYErFWEa iWYzS511d4kwj8kehnQfvVE1 xRonFTIlzbrgZnS8CHkxAWYz ghmgWXd1QDbgJZGjrVK1DDEl wZBfL7MrVIEgBZ9tiky3KWE0 YVdwMWRoZgM2PYXhuVOmKVHj rKutYJnxx891UPI4SmHlUDAq wePfvNdahY3eTrBjIVB2GWYf SQxuTXFnNVlcQBRBK5zfHTK9 CLINICAL HISTORY q9ibbJQcIHWzgHV5HdAtYFHv (test code = 3356) i3pxj7AdgQUvvCSrIZcnzMRh ihZczr27hWT6sU14BG1xDIYi ChQ1DYKqcoU2Rsi5GUOkKYPi jRQgQ564k3fqu9xlvxArfSZ2 zEtnZHOpnhuoQvP3ESsgMMXg psmcGKo5BYmyGJVfgCS8TXNo rBTyF3OdGIMaRN6buft7ZTO6 ZSaiFSQuOjW8JGPdiONxLEPz uEfeVMfwm877XTP6OyBhYPVw ruTunLzvqU3yYkUkTILYJMPk l9YxzlNain5qXFQcbPahfZLh nK4wUQMwsn9= GROSS DESCRIPTION n8priMEbTLCmeWJ8NqRlABJd (test code = i6xhb8QesYDvdHNiQWzngYNf [id number]) xySgjj85dXL6dJ76NG5uUCAh HgX1BGGystA4Lob8OXMoLBPm kMEuA301c1gjk0sdiyBxzIL7 PAHnGRUvU2MlFW7jHCCmqVAe H92cxMSlLCR5SFIySOGztTDy TSRvTGT0BQUzwAUyL4ykDVNd XO8esbxwKRtvTXitRYPxuQY0 GPNdoHVdD3KyXHNiXSohHJGw krd4WbNpZi9xwWHeiHxgIBgi KNNaf5yuRRWtcOTgHKY4DGoj hYLyZGDqIKHlXZj0QILwHXml zMOkCF2owQygJazdhBhet7Io dCBcXGlkIDUxMDAyIFxcZGIg T7BRJGJpYRZqFVIqPZEpWLl8 ZWibO0PZUSMuEXYzQkn9Wtx8 ZzT0MTa3MCGWXv4sOmK7JXc1 OzZ1KIU8ATZtFNcgaEOpQJsj ZmwgXFxmIEFyaWFsIFxcbmN9 NAXlFBguVZToTdIpQP6rBSac rYzgJp8pWCvkNMAooP2lJGB3 EXsdV6QbJR67FLTEhWM3wP1l CHkkCLBushunstNcHZPeS2Qv dmVkIGZyZXNoIGxhYmVsZWQg b6n6gTQ1bLBakLY7vQOpaZnr FwZwRN5mpVIkDA7zNMbzICgn mfAjd7NjUY13fQCznlSddjCj KaT4QPPlz22rNHFqgRUrKELn FcWlK54xCL02tKLuB674vBNh qFvyeNiplz6uGVGqzBXyqKE8 ZEIydI9gpA86izVxmdEBUB22 AXIrjEEpXTF7JV3pLJJeliut UPKuBYOvIOW8YEujmS70dYKs XGZzMTZccGFyfXtcKlxlcGlj k5KrwZDdVTkoXAKgPGOqXSzz EEMdC5SPGJWwVOHoLKVvTVFy UEo7EDgaM3WGBVQcFAUyBaf3 OMW2RhO0ZTi8LUTJXe3gVsT6 HRd6ZjK2GPI5JXOfZVqttBYj IFxcZmwgXFxmIEFyaWFsIFxc ekF4NMPnKyGvQs2pADzfjXzh Wf6sGGbjNT89QNZms6Jwgcgo HqcvfSLpPEO5GUKno27qNZEK LlxwYXJcZnMyMCBSZWNlaXZl ZCBmcmVzaCBsYWJlbGVkIHdp xIpcoImyWPNcjWnkovUdL9C1 fdWoCC6fFOBrKNDdS9PiQCKk D75xUAXdgZ6mOMRrEY6cPWDx sJI0vH6bPAYjGmAmglEdWDSr ECQtbOMapqRqmnRxi6EaJaAd rN5mjXWdj3UpPMS0Kt4juJGs PDJrgyC6t5JvRCqxIQSsMacd RVAnU9QzL7TupvIhaAViZAMz ceEew9tiCVV6FQIllUAitRCg ErYaLmxnQZY7j6nwIOPxvAEf VRM1NTzfuDQsTZKjKGMrJAuk SzQTVqJvSrE7IOW3UAE2XaC0 ITq5WEEYCfJxSfRwIeAoFwFa DbQwADt8YVk7OXlOLkI6SXj5 LJCjFRDvJRFcYMJvODd6AYMw XFxmbCBcXGYgQXJpYWwgXFxu N41kKpFaFMYKWvTOtR2daCGF t3LsEPZFkNxgnvtlVqqnyXCv UHY5OMBis42rDHTIYcqsMTLg ZnMyMCBSZWNlaXZlZCBmcmVz aCBsYWJlbGVkIHdpdGggdGhl KILuqDrugnAmT0B2vjRhQC2c WGUpSLFbO6XcYWVrT63sFBVi sZ7rVDWqYY5sDDHuxXL9xH0u IDEwIiBpcyBhIDAuNCBjbSBh ahJheoMuo4AqEzCdjW6vcSOo v7PuDCAvOWlbFG05NTHyvA43 rjEpfRBpPXQke3BdxEs8mKDi CQsxNKDcnG5ycQ5sQoTtg9sr yMqzv5PwsMOgHDgsHKWnyFEl CBvosW4lElGxb9nnjOk4GRyn ryC3ZWAfuq51FAxpSLGbK3Iu P6XcXTzhPED2HTLiHpTuUVLc NK9HFhHpUJVgDkFeINKcCRf8 SGh4UH9ILeSwUUGkOTD6MBm1 KJReNMf0IRpzKX0SADJvGux3 XpxpIPL1PVL9NwTdGJKwCqRk GMSeVVqtJfMWtrncyIJiUJ8y eVttwtTwHJLtJIq9mijaISIx K3n4TIRjcBPmVUakBuNaHOQy clxmczIwXGNmMSBSZWNlaXZl ZCBmcmVzaCBsYWJlbGVkIHdp dGggdGhlIHBhdGllbnQncyBu TI7bWXHLVp7eJU9qMYv7hlfw QGZwS3g2YOFeeFGeJVmjObVy IGlzIGEgNTcgZywgMTUuNSB4 HPWgQTU6ILAcSTAhbBJnvZ5i NNQmK29vlkLuE4SjwYmxXANy cGFyXHBhciBUaGUgcGxldXJh NSYjk1YwTPnwHTPpFKRcESHn a8LpLMZyFXRvn46oEAFdVLPi JEjyYNLmHPKiGC9cLIEtDeZf m3vdIERuwyMoLG2eBEMjDOFi IpBuc61hVQY3rR2lGOO9KJ7l TRZpbhDff5DozRajFVAtZAJm bWVuLiAgVGhlIHJlbWFpbmlu NrNhvAO0ltGkJOE5ldUlF7Bh tXDefgBuZW0urx0tlrZzxhYf r16yr9FjUep+RNQrOQLitL0g TGbjVNShojsrpQn2BSZfL9Jk a42jSTQ5gsNpRRSxDKwaYNOx JeZjsTExPwApfDIePqQzG97l aWxsLWRlZmluZWQsIGdyYXkt pCJzBYPpfURmRU1un1Tdq3Ko nbDbDP56STQlWHLaLYRmjHK0 dgOpeSdlpCAipjVrJbkzN39y HlTfeYH7xCJpuSHdRU0bzEyk HWkljZIiG5yfUuRxFY3yKQMb FSBlWeLuM76fWuNnoEQ1mVEn xDAbioRozeXyRODnZjK1KJPg INZ7UTIaRSJifKBnzTlvIYUl rJ0sKWzyxPPmkJ88CFWviv4c vf2vfHplQQCoDWLmaZSeIX9q POGmPMDlo70mcHijMXPybyEt D9b5zBLrJK7kcciwrtPdizCx WJ17VALqCWGqx63slFenRVCj ZXVyYVxwYXJcflxwYXIgVGhl IHJlbWFpbmluZyBwYXJlbmNo cK8cOSysSJEwSZAwmvWeu4Jx hjh3GTHguYJow7QbkAP4cXZo JFZhB6Eba62zGOscNRWdMWZw cViqWSf3EPRifyPqx9ByiRn6 rZFkCvQbD0Spx5SraKazdK5y gxHscCTvOTUrUQSil4LeUdkj ETLvcUTnBRegylDfo0JjNejs iU6rUXDxoDS1OJAmEFUuHInj AVCqbNXpUXSiE3Err35wE50v JTxpdyofQHYzBVKmSWZ5SLDw dGlyZSBtYXNzIHRvIHBsZXVy BNiaGPDtKARmQDU4YUVefMTt k1UfiUT1sTRgRC2gUWNsUUFz TPAxDiFqoOA2cfHrWQJiFECz h96gjWuxAKJNMixqEgGbrpGl ZM15TFKralBfj9Twv9Tmh40h SYLfSVEvg1JdcMckpKEhlEQq DGnsp8bpvtQklVEaQLN2OmIm NTWzWTXnr4GvEzruuf0cfWMa fUqjAZXOOYmmV5Hfh11tTACh IWDyj1KviJmawXRgyPWssHYj e0Gis4drOMXqGQolGcQeWbDa V66xkRTdfO38SR7iWIEvVSef ENVuV1IfRVBvUYB0ZCPpp8Qu r2BquZWfGD5nhRxhYJicnYLo L5ncWXEpIS9ut5PjFDQoXOTe I9GepHuaFTUTYHU4JFIye2Dl a1BqxRFcCG1xiQgkVRzyoXAr G0enVAFaTK6yHRGaDLoxQS8o ZmFjZVxwYXIgRDEyOiBBcmVh FT1vYGMaNVFkONpnP68xA0Qh dGlvblxwYXIgRDEzLUQgMTQg UjY6zjdpet0ueyUjYCOgsiYn L8v1tPXjcIImBQZacdBJsLCz c9FuJKqzPQGeVHTTPXSaJBAF FJmHI0VFZAKwx6aoaNalk8Bz vHLiWQ29SLHsxQSkYED5NC1t fVxwYXJ9 MICROSCOPIC b7csiOTbNBSygTD0WdLcDZYt DESCRIPTION (test c0spy8AcgEQysJXlGOvjeQRn code = 3371) bpHaas58iJG2xV16KF8xTMAi OjU9RHNvciK6Wwh7WLCeQGPn pYJfM222z4cbs5mjtvDweVK2 tYltDGOlebouSoR5CXqcFDWi fbphHHs5JMlhVLZuuCE6DDNc aOOpS6EyIXUgBQ1twqz1BJB9 HMhmEVAmNsU9RUYwxBOjCOHj tGibGXjlz320WGC5PoKyFNRf emDslNjjaB5iQjDkYGPRQBVy o5EpQVTcKYSpsxnlJBKrPMWi cn0= [facility] [id number] 08:58:34 Test Item Value Reference Range Interpretation Comments Case Report (test Surgical Pathology code = 104) Report Case: [id number] Authorizing Provider: Ernie Washington MD Collected: 07/15/2022 09:20 AM Ordering Location: [facility] Received: 07/15/2022 11:36 AM PERIOPERATIVE SERVICES Pathologist: Willian Restrepo MD Specimens: A) - Lymph Node, Pulmonary Ligament, Station 9, station 9 B) - Lymph Node, Interlobar, Right, Station 11R, station 11 C) - Lymph Node, Hilar, Right, Station 10R, station 10 D) - Lung, Right Upper Lobe, anterior lobe segment ADDENDUM 2 (test code r6gfiNElNCVhbFS6TcSdXMRy = 3382) l5rtb0QvhEAeoLSrEBimkLCs gkFehh68vJX7kI95UO6yOPUs KeS5YYGajvK4Wca0AMBeTHGc jQGqT527d2jyu9imxvQgpMY2 cMnyHGTmkugbCoU7RZuuNISy cqviEVz4OLhoRMMkqRN6COUi xHCxP2BmSYBxGZ0lful1SPS4 UGqjTOPpEsT6NTOlmONsVDXw iWsqVDrew637JVT5KgOlJGBd ctNnxFoytO6qGbNjUBMVvVuv UVAwZZKyWXZfHSzjBXHufV9t NBncq5TxTSL0irRbZFSaohBe mwOlwAx7eiQbZjDRP3OFLN92 gIK6rM5kFYNrp4QvpmevtUDs Ku7miORfUQZ1JK2sy8osng9j gTXdFYkoUr5yMVKbzahpws3i iEPiVZQizfWHKTLONEU0JYqy YXIgRUdGUiBNVVRBVElPTjog Az4QCTHYBOFIDMQINNDmcsmz YXIgUGxlYXNlIHNlZSBhdHRh O3ynQKUxQ3AcmtTmMPJzlY7d zQHpe0QaHdHuvInppjFdNQDj aWxzLlxwYXJ9 ADDENDUM (test code = y0ntlAHpNTWkbQG3MiMrJCFo 3381) y6fzh0StvXPhdQDmTSgfzALc xvEsjy98pUS2xG70HW1sQNQf YlS8SRUtglB5Gea1ELHmJPKg pGNtN796p6sqh0vuhpJwiFC8 kMqxKHHcogrdSvI0FCvfXQRf sfgiBYo0UFngKRUspMJ6JMUi pWXaG7KhXBOsOI9mlqf4ZAV3 ILtlKEZwRvI7QLQmtCJxADDv rBjsZUfdz088KZJ6GhXdSEJi ewOxrQjxmC4eIpGiHSYPjBtg LFLuJQUzCIZbLGpjPRFnnJ9b IRnqc0LlAZM4jnDfPVNpliXc gBtfUPOvi0DutIVnp0ThLLYV FKVynV8kbM5uk7PhdU2vnDLv Ie2yqRYuDBW0KB6qh7moxl0x iUYiMXjgNa5qFZXeozyhyj9j cGFyXHBhciBQREwtMSAoMjJD YcEyzW7mTFi7KAOXCPHEG5OB QDOplBHuLACJXmJTV49ADEav OTAlXHBhciBJTlRFTlNJVFk6 IDIrXHBhclxwYXIgUGxlYXNl ZUFxOmBjIVAnHZQ5bQUggKXb REPdIN7fHILeciAnq0S0MTQb qsQyyPT0pJMlRWFuj5BhyDDt IFxwYXJ9 DIAGNOSIS (test code m0ddaBHtXWRzj4ldXFJyvTMa = 3220) ZzEwMzNcZnRuYmpcdWMxIHtc cnRmMVxlcGljOTYwMlxhbnNp LFVgoYWhP9KdlvatKWccQC2y AY8riBnsnMVznHUwXLWlFqEv w6xea000gZFdq8ogJCQAeank mHg8bVlyJ26qw1M3HsytT0jw VRE8BRzjtwBsetIiATAifAI6 XKhantUmMVUpY8DmKV2oJMfs uONhYIR7nFwvPRDmcxyyHfM3 KIzhKWRkkqfySSb4RAkaGJDw hEA1VTYczPHuF2DqMDRkSO3d amt7VLN9WOftPCNdYhA6BAOg gYXhSIOngXfdRPeyy756XWD0 OzOeXAMxrnGzlIcxmF4pWeBc CBdjNpFjXD9vNSmAFYslNo5O EGauIYQBJJ7YGVYPKXzJD5MK LE0OPDJHRQBBBL2YSEvfTMGN J7bNRV1PKyojPXJxF7ClBNPe ICBPTkUgQkVOSUdOIExZTVBI DA6TCZUwNOUfDBwjiINgMSRy emAolVCzGTBfVZYMTcSSKQ5Y EDAMI9IOWZZPYbMJBhhTMdBS WOBIIVRAJT7UKFXqQjhgFVmT ZFHQT962IRTykowbTwKxLL0k XD0ENGLPDU9SM84jAQgBIPio Ru8NOFSuOF5jZGszQSTocRVx SYjrYiRtlTTcWYYpZGIHAW8R BKGCL1DSNGECPNeBOjuyQ5AO QDtRJiVfUMBiQKLZS7pBYL5Z MpkgZOLaW8ZgXZBwEHHRQgCo EbZGQUpFSXeIQNGUFS8ANJEf CFJfRTvttCXjPZPmkyJdA4Ga KTSocaPADvAFVB2GEVCSJWmD COCUAWHWKcUKJ1VPKQCJFnOV QykCVyWNU1TJPNKMT13LSiTl SHRBU50VWsIRM2XGZEw7HADe ajgnKvVrkl2uJG8SIrQUG7cD RUSVZWKYH4BWEiUALn8AGEno VG9IIhaTOORMKaOYGjDHUBcV VEVEXHBhclx+MAZguesHK5LN JFQJWE0FN3fHLuRBCXHXKhTD Z0uYCDWmFQArHCsnAVXDMoAJ ICgyMCUpXHBhclx+LSBcflRV MS3QLG8EDNDEFnLULZWvGBMC ADENMiQOFzYHLDIUMRWTBC3B CmGMI51saEFxJE3fJJv+Tk8g IxcRZ6JESXyfMFyYZVWILZKF ZxMNT8nBTzBDPnFGVAPVEMlD SUVEXHBhclx+GAMidu0GEUfO FCIDI4BOQ7MQCRGMHRlDWdXK LF7DWZzJWIrEVZ9VJYZZVOXh xWOhDZ1nAGg+JKBRLI2HDTkR NEqnPmDGVTINEQ6EBL9SGpsO SrtxIyZBWUHDKmDgMx8CFH5I DYhJVyRPJ7ojGSYuKCHUTRVY N7NMEMsvGHAsUD9qOZNMUCZP UFpdJVYJBOEKH03FMAIbbuPw QBIdOOMEWQpFTYkzJJYNUa7U QVRPVVMgSFlQRVJQTEFTSUEg XC0zSUmQHCBTI7vEAz7YTiLf nJRyYE5oIVp+EVJOZZ2IL1uM WbJTXWCFDJ1FTiUlZSUmLoAO tPVmGZzVTtB0gZouJOYwWCop TLV8j4awqSOsBKPkhRMbOESq MFxhbnNpXGRlZmxhbmcxMDMz ZXW9riKdIUIkUTglQBXfHIbf Mj0qoDJjhRpfGtEwWTNxl9ku vsPKxnfxxNb4t8anIZUpXcV7 fCPcYMdkX0rvieQlpSBmQAZb VZk4tG75ABJpmV0qpNHsCGew kdIoByD7WFbrNKIiQtX7ECKn wHWnZOHeT1rfAZEaSJzzESSg KYpvbVOgPOD2fGzyu2C1pGMk oHUfxCxlLaIjAcZnYqUJg3Gj VUa9jVkyS9EzPNJdEgJ3qBNn FVFyYAciHMHcPRTizzO5vZ81 UFgelqG8sQNmu4Wyi12ip377 pY9hqXYeWVF9KODuQSJfyUHx QIAuMCQ7IIFqvBIfC9bfLXAd HD9xywniOJlrBKkoZMLyuZG7 NGHziJWgG5EiHZEjEMsuYZNf ine1WyUfFf9waNAdnDdhVXjh u5yoe3fgpHReEti1KGExWpFg OnegFOyhi4Hsy2tbRUCsup3e JXF4gAVhaYjfh4B7oWZzGDFu mGRxSVBxZG0ngIFaBDCajD9a cmxjXHBnYnJkcmhlYWRccGdi hkLjOg3toZdgALI4OEspE8sr mY6lVxX7JNwfT2afrZ7xAXw3 PAzxDURbcCP5qyJ0EDZjkKZb R3WfdD8aKZGiQY2zbtt9x3fu IWX4CWutSWXnGxS2cuM9TMSs xARoCAYsdMtoMCpls133XRI6 BsHlJXBnx6PwP7WawZqzX49v zVscQ29mJIGfuFomiN8jyAbe bP1mCpBqRjEeKXnfeAasAV4s RMMbT6rxcIPeXQEjGBLdD8ka NrIwsA0fhLfdGJzravWxDXBo Uwo5IYJkuLUdRSAiAgs4OKYz HXHmK36ppuqnSIV8gX1sg8iu s8KzPEopDDP5WFHfb81aONsk zjK1NYciHb5lQeYaAMR9QVmj YXJ9fQ== COMMENT (test code = k4zieXFyKQHzjEH9QaDoPJDv 3359) k2shr3AlaICiyORiUBnshMNf edRbco59rZN9xN73KW9lBZNu SjK8UHDpxcB8Gto0YAOeWXZu kIPcZ249w8rdk8rdwcJijBH0 aZuvUKQnhyuzNqT8KLjgPOTi mkeyPGx9TZyaYUItjRG1INKb iEBnS9SwBRGsRH7kjdw3SMM5 NVjpAFBqLuK0RGVqeGZnRNDg yFkkFVymm573QIS0AlNdBIOx swCgcGuziC8tJbTuLEFRjX6p PEFjCDHnp0G7BBh7ZJXdbuPA cY3mskjaDKVgfKZmYB3xkr3j zQkdLUF3EGAtaxfdOLUkCXYw q4Aqt3ehjKRjQAQxMS60DIRl XX2fk3jhgz3dwRLoSPYlwkIw vT5aNINiLZAvpRNrmWtaJz3n NzWuxMw3gaG1wRfqUSMfJOCn mK9wcIIzHJsbFNRmQNQjWJKn ZHVtLiBccGFyfQ== SYNOPTIC REPORT (test LUNGLUNG: RESECTION - code = 5765) All Ghvoytmbz2gd Edition - Protocol posted: 04/09/2022 SPECIMEN Procedure: Segmentectomy Specimen Laterality: Right TUMOR Tumor Focality: Single focus Tumor Site: Upper lobe of lung Tumor Size: Total Tumor Size (size of entire tumor): Greatest Dimension (Centimeters): 1 cm Additional Dimension (Centimeters): 1 cm Additional Dimension (Centimeters): 1 cm Histologic Type: Invasive solid adenocarcinoma Histologic Patterns Present: Acinar: 20 Histologic Patterns Present: Solid: 80 Histologic Grade: G3, poorly differentiated Visceral Pleura Invasion: Not identified Direct Invasion of Adjacent Structures: Not identified Treatment Effect: No known presurgical therapy Lymphovascular Invasion: Not identified MARGINS Margin Status for Invasive Carcinoma: All margins negative for invasive carcinoma Closest Margin(s) to Invasive Carcinoma: Parenchymal Distance from Invasive Carcinoma to Closest Margin: 2.8 cm Margin Status for Non-Invasive Tumor: Not applicable REGIONAL LYMPH NODES Lymph Node(s) from Prior Procedures: No known prior lymph node sampling performed Regional Lymph Node Status: : All regional lymph nodes negative for tumor Number of Lymph Nodes Examined: 3 Dusty Site(s) Examined: 9R: Pulmonary ligament Dusty Site(s) Examined: 10R: Hilar Dusty Site(s) Examined: 11R: Interlobar DISTANT METASTASIS PATHOLOGIC STAGE CLASSIFICATION (pTNM, AJCC 8th Edition) The suffix m (or a specific number) should only be used in the setting of multifocal ground-glass / lepidic nodules that histologically present as adenocarcinomas with prominent lepidic component or multifocal tumors of same histologic type that are too numerous for individual separate synoptic report and that are not better classified as intrapulmonary metastases (e.g. numerous carcinoid tumors). Multiple primary lung cancers showing different histologic type or different morphology based on comprehensive histologic subtyping are better staged as independent tumors without m suffix. pT Category: pT1a pN Category: pN0 ADDITIONAL FINDINGS Additional Findings: Atypical adenomatous hyperplasia CPT Code(s) (test h7gcuEPzYSNmaWJ3KnPyUDZn code = 3357) t9wwa8DalOVsoXLfNDttpTSx zrAugg41rJH3pT74BB6pBSPa HwB2PUNxdpS5Mis6LHKpZVVb kPGlE035k6ehd1rcfuYoeUZ3 xLxvZCPmhaxwCqX6XRkvSMIr dmmoPDy3MBfgEDFogNA7ANWy cAVtZ7EsZECyMA6vblp1TOO1 TFmrEMRvEcG4IHTsjQBgYKLs fBxqKYkzu139LBA7YuCdALDu wrRdeFfxoK3uXrDsONB6UNWi VIifHMVhMVaiPRELK1wsCII6 CLINICAL HISTORY n1dnzCRlSIKbuPA7XqVxUCCg (test code = 3356) v9ryj1DirFTlrIZtQBrudGCd bcAjxo26zTP7tV02WM3nSVNg HaV5GGZckjH0Zzo7XDJvXTYv bJJaO782n5yzz5wkcnCjaYK3 aMyhSVPcnpxgDxC4AXhmMLNe tqghBQk2IAtiOFEdzPG0OHHo gINmE0XnLRReVX8ucip2FQN1 EAugHTWwMdT7JDDcxPJvOHSx zOdvVKiyp453XCH5FxBsSWXm giXboZjocH5cLpRjXSJMFXDr w0EohlZfrl2tGMVqeDxovZTy lB9hRLFxtx0= GROSS DESCRIPTION a6yynYNeUCBauNT7IaXoRPBv (test code = q1pkr8VanYJuwCKlCUsthAHf [id number]) mjVyyh34iDN8fM55YI5jRFIs RrD3CRVhjuA5Pws5MSIiYOMx aIGmJ221h3xii2azcgCnmYC9 CLJbLGDgR1YtGU8dLZXtqECw Q71jaFKbNHW9BAPaANOymBWa YNAxORK4PIKmuMPaI2kyTRXz GA5tkobjYUgrNEqjHACaqUJ1 AGKnyBMkF3NjKJMjDVyiBAEn oge2ZwJvXb7ejYWqaFtsKSqs IJUfh2fvLNVtzAWiJTI8ABnt xOHxCYOhFPUeDWs7KSEoQXsn iWKuKP6gzTezMnnnjSwxp6Om dCBcXGlkIDUxMDAyIFxcZGIg J4YLORYnITXlWBYyDPFuAQn7 MShqO9PAQWNwHDLyXyg3Ira0 VcP2WNa6AVYAHv7fOyZ9MQk6 CrX1FNR6RDNpSOyccFUvJMkt ZmwgXFxmIEFyaWFsIFxcbmN9 VNXaTEqtHHNgCxIoYF0eUSak sLpeJf2jAPpoSKPwiA8zJTH6 OKxvD2LhLM52ECUNaOH0yX8t QTbxVERrntaznzWkJEDiJ5Or dmVkIGZyZXNoIGxhYmVsZWQg o4q6wEM4vVUftLT7mENwuOls TvQfXR4gfZFgLC6aEIimMPky yrYsq3IrDG90wJRkwsIxzdQd RjN8CVJcl00lIJWrwCNkNSRn VqVhW90oGP11xPLfK751iJUt qZasmEcyle0fIYOpnGSxwYD2 KVYiuU5fhS80vfPvieMGFD32 UGHyuUGlNOF6OI4vROLscixt XGSpBLThYDJ7IRtatW71lXMt XGZzMTZccGFyfXtcKlxlcGlj q1VaaLSdOKpiPBEzSFUpGDpw THQmP5NMQBRxPKDyQGLeRVOl BHl2ZPiuX8NTOEZdXJDwExo1 BOU2OpS1JIl7KNZYDn7dZnO2 MEp0UlX1QZS0RCHdTQahmEGr IFxcZmwgXFxmIEFyaWFsIFxc vrD3JBJfGvYtKt6kEWtscLlb Dg0wRRoeRV81SNXpu0Kansjk BuiisJArAFN7CZDxo82kNVYC LlxwYXJcZnMyMCBSZWNlaXZl ZCBmcmVzaCBsYWJlbGVkIHdp dSvpsYraOMNaeLscnlPbY9W9 yeEqXU5hQLGbFYGqQ5LsWKKr L56iVRSwnE0oAXNkQJ8eNWZf rNG9kZ3kQAIbTrVwsxDuJURl DRGkpDEoslOyvsQjz4MoZjKa kJ9vvSRev3DsRIO3Ch2daBKy IYQrrbT7x4CbWRlyCIJgMmeu HWVnT1QtY8TtxzYgiOKdRSLl zsEww9xcSTP5XQYjcUVzjOOt OxDfDgnwVPK1s0oxCPEvzNZi ZZD5ZBoraASeICKvZBJyXHfi ChMGUhMbHzN4UZH7UVI4ZpY4 TYo7VTJOUcMsOkHxBoXlGoFn WxDnPNx3CId9BByKDzD2MZe2 GOTdDBEtZQMzNCSaFZt0SWJj XFxmbCBcXGYgQXJpYWwgXFxu W68jNuCoZVHPIoIMnO9riPCZ c4HtHGWQzXqhbwjjLpfjwPQb ZNN0CBIzk28lEEDMCgepBVYs ZnMyMCBSZWNlaXZlZCBmcmVz aCBsYWJlbGVkIHdpdGggdGhl CSJmaZxbsdLaP8H7kmSbQV1f CXShUMIfF3CqNKNcP93oSCDg bU8qFHHiAF7sOUJivOV6qZ7g IDEwIiBpcyBhIDAuNCBjbSBh dvDbgyEje6JuJcQhuZ5zhWXj s0LqZFVkEJvdGV41MKYulV01 lrVqtPJaLRUox8NeaTy4hOZn BTniATYajV8xiZ8fNgMar3es lEvvd6JrlFKyBOugQBRwuIGu GDfofK5tTjEwv3tgxHp2HZpu glJ2OPQtgp59UFnhTLEgC7Ak I9IwBYbgOOV1DJYzXhTnOSBo TG7OTyPhPNKaFiKdPFEaXFs7 NUe8JS0SVaHsXKGgIXV6NBu1 KVJuOOh0EKvcOW3DOGQwGnv8 WdrxMSB1JYJ8LvNdJCDqPcZd CIMzPHqsDhPTbdqgpPFbHC2o nUnlfwXeGEScBHj1mehrLDMl M2k8SMCieOSaRGaoKoRnYYUp clxmczIwXGNmMSBSZWNlaXZl ZCBmcmVzaCBsYWJlbGVkIHdp dGggdGhlIHBhdGllbnQncyBu AC4rGHLARt9bCK9eARk5ahck IXZiS0u2BONeoRNfHDrpYvHp IGlzIGEgNTcgZywgMTUuNSB4 JRThVFZ4BXHxKSNdiEOwxX5k CVOkL58qkeNpQ6PkaMgiNADr cGFyXHBhciBUaGUgcGxldXJh AOTqy7TwCAghTILvMKQyIXJq k0WqHLOfCBHqz79fFKOrFKGa TOtuAYOjJBCmML9gVPRpUaLw y4ubCJJzqsYkVM7zFTWdIWWv ZxOqz56dILV3uS7tPWM5ZD6y QKAaorChn2OunYenWMVtDDHj bWVuLiAgVGhlIHJlbWFpbmlu CmWddXY9pkQsVNS8vvMzB6Jq wLIfyfUgDQ2iwu9jzkMjkdYz l01zr7MpXrm+OCIiSYOzbZ8v IRxgWPJmqlvcuFh1OHKmV9Iu d20uLAU7yiTvXMMyVDvkQEUa YvErvLNhHfOekCOmIfTzZ93q aWxsLWRlZmluZWQsIGdyYXkt dFFrVKQexFOsWE9gk1Sps9Aj ajSyXB10SZSuDTNyANOjiOG9 epFbyTcjdAXzduUaUaayZ74x DnVkbQF9dWFqnFIdMS1nmTyx NCjaqFAkF0hfTaIuSZ7sYDKv QDPpWgOzH25zHfOxtME1tLNx nCBaerLmdmNfPVAiApY1TGXd WUZ7HJRfAFBabYEjpWtwFQGx oW9yYApzyNFqdH10FLGzff4j yk0rtVgfNHJvJAZhrOKiQZ1c GISgTARqi34hoPnoMHCnvyTg K2f6xXOpTV4ljrchwbXqkxDm IF02VDNgSDWgb26mgHqgSWDo ZXVyYVxwYXJcflxwYXIgVGhl IHJlbWFpbmluZyBwYXJlbmNo iD6aFQgtTFYsAXUgbwUml1Xb dkq5BORnzTWum8EsjGD7qWRf KLSmQ9Bzy42pZZszKQIzZTCy hOmoLYc3CDJtxqQjp9CnsQo5 qTLzJjWrG7Jwv2UhkPkloV4k gjGdxEXqKPUeMNHnt7EfGvle VQXjrDScGAnvfnVdn7QrPsgk kB2sJDPwtTS5ILWjDVNgJUxo VFGroYFkSZUiF9Isy29nY93i KSlfpoylWBPvCFLwPEX1RJWh dGlyZSBtYXNzIHRvIHBsZXVy VPlhFLNsLYUuRME1NZVurFIb g0YvxEN7yWKhLZ3bPXNyDYXm ZKDqPhYnjCZ7noXjFPUlAOCe g14tjExpAZKDGoveFyJwxxIb ZR84GWRbsjWah3Rpf8Uuv82w NAMaRTEvn5QvuBbdoJSajNMs EZxzd9focyFkaOWxPIH5VhSb JBZrQSMrd6UtIxphkb4xdTLy pJfkQUSTWTbcA2Iea02vKMZp TLOwl7QfoRxtsDVxwPPaqFWg h0Fce9fsHBQlJKutLwCcCuWa U36hfYCzlS78NU2gDLZaFGqd GMJrH7YmDMBtMSE7FDUla8Yd u3GyaLOoWE6ioTlrQEjglQHy Y7awVTQtHT9ky6ZlLYUqULCy X1JwvRkhJWGXNJT2BATsp2Tg q1OwsOPsYM1pnJdgBTxssFRm J3llTKQtNP3sGJFpFAnvLL0k ZmFjZVxwYXIgRDEyOiBBcmVh QW8gVVQaLPYuJKooL84qO8Lp dGlvblxwYXIgRDEzLUQgMTQg RkH7xmoqfa7ixeRfELCprxGs U8e2uXJycTFsXTJjgyZNcEXq m8OjNBmmTIFlDJPKTDHoITJS LObMZ2UNOTQsl2zqsQpzp8Su hTRsBE18ZTCzfFJvYNV2LG9n fVxwYXJ9 MICROSCOPIC r5txxOLmQDMuvWE5KdWhVHZc DESCRIPTION (test x5tvo5WjtCSllWPtGGjbiZLo code = 3371) ubGnbc83jTK3vD56VJ2dFMIy ApA2NCVwxgK5Vqu9ELAbYNGe tWDoZ588j1oiy7fivaSshAW1 oBroTRCvktxlHyS9NUgfIODg tvhzJVa9AIeuNSSewKS2QPKz cOJiB7DmKFYqQF4xslq3QSI4 BPmsWPBcLqY7TLRvbEGvGWNr aGijWWiyz142IYZ9PyYgDBKj mgFsdQzzxZ2qUoBdUMJOVYYf s5KxZKXpBBIdsfzfPVBxYTCf cn0= [facility] [id number] 08:58:34 Test Item Value Reference Range Interpretation Comments Case Report (test Surgical Pathology code = 104) Report Case: [id number] Authorizing Provider: Ernie Washington MD Collected: 07/15/2022 09:20 AM Ordering Location: [facility] Received: 07/15/2022 11:36 AM PERIOPERATIVE SERVICES Pathologist: Willian Restrepo MD Specimens: A) - Lymph Node, Pulmonary Ligament, Station 9, station 9 B) - Lymph Node, Interlobar, Right, Station 11R, station 11 C) - Lymph Node, Hilar, Right, Station 10R, station 10 D) - Lung, Right Upper Lobe, anterior lobe segment ADDENDUM 2 (test code u5xppTFpCLSwsAW5BaLgEUIh = 3382) g8vfv7DwbYHqyBJaGFawpWTm ziItjb44xVQ9xC08DE4dYMHi FhG9REOvudI8Kip4HEEfKCPc lNFvS113t0wbi2wgcoAouHI0 zUsgHUJrxoanKaY6PHlfBTNi qtnsFSp3BAtxMQSsxBF7YURd tORqA2GhNGPhMO5ppwt0XVX8 SShzVNXaRdJ2INEcuHLkXEMa oFgzNHuel424TVM9HsAyWGXm vcUdbJbucN2mUlXiAAWMvVfz DLMcHSZwEEGyQThqRSDckH3r KMimo2IeOWJ7adQwVUHhnjQh pvUevTn8llZzLcTVY8ZQNB52 aQC6vH9aDYQim0JbrkhtuUIi Ck2keRUaZWT3XL6ml0qzdb8g jNJeIImkXa7wCVEyeutowf8g lCIgKAMipaRXEYTCQVJ3APfr YXIgRUdGUiBNVVRBVElPTjog Lu6FWIGACJPZGQRPUGPwyvjd YXIgUGxlYXNlIHNlZSBhdHRh V5odHNCpI3SwopCdRMFgxA2c nBMph2YbIbXnuPfmopPvXWKx aWxzLlxwYXJ9 ADDENDUM (test code = g2wmpHLhXPAhkYF4VdNlIIKv 3381) n8rqs4LqtYNsmRBrWGqwkNQx rqSabj65hSB4gG08BI7qZYHt KyV4DCZhrrC2Oab9LSCsISNq oUDkP718i6uyy2ndwfPtoID7 vXmxKPQqnbnxMzP0CEgzBAYm hobmXZv3JYfgFHUxpFM1FYTa xIFwE0FbKCFvCC4nklo5WGS6 ISwmEEQxTrN4XAAfbNFeLYLi zPrhXVpzl343HOU9BsCrIWIy zgBeeIgzlN2tPyQbFPCXdOsx LPPbUFAiBZOlCGleQWTkxU6e ZPjam0WlQYB6xiOhTNMfbfCq kEgyJQZky6JwmDSlk1TlQZVO XBGfuZ7ikC0yg9BslW8szWEt Og9fjXFbBMW6NT5td7nqce0o dDCyFCkhBb0tCHKhyhhxxe6l cGFyXHBhciBQREwtMSAoMjJD SfUfjV7vZId3FGNLDCOSF7QR DMPjnVZeOEJCSsUGC92UASdx OTAlXHBhciBJTlRFTlNJVFk6 IDIrXHBhclxwYXIgUGxlYXNl LQToVgYiTQKyFAG5qQLutBCn YJUxRT3jWNCpojDxh8W6HUHf coTliZB2hWHdNHAwj8KvvJYo IFxwYXJ9 DIAGNOSIS (test code n3zrsFRwEEPxm4auFQMmyXMy = 3220) ZzEwMzNcZnRuYmpcdWMxIHtc cnRmMVxlcGljOTYwMlxhbnNp HWKnhFHhO9YslepoGOixSK1r QS3pjCefvSXjiHTzMXLlUrSs v8tid811uIAzm7wrBKEWniyg zHz5rLsfJ05dh2H0SikvD1jp BHK9IEyxrqChqeDhQQVfhWM6 VYgmzwIiKEOdH0NkXM8qQPcc uWDmIEK6aKmuFHYxaqvvUeJ3 UJtvJQZmxdcoYWr5TGyoFVHx mFS3QVXfjXSoO6NzJQKrVP1n anx4HZE2OXobFINtHyF7IIFd lTOmNMMzoCsvVDugv759FQK4 TfGgQEXruyTgqWbxyZ3fXuCz UPkzJdIoFE8aTEmPRJgfDk1X JSwnFFEYTD4PKHZKQTuLX0OG EB4KCFCCNOQCAC8PVYruZKPS R0zUAQ4CGykiCSWkD9HzTPGq ICBPTkUgQkVOSUdOIExZTVBI XU5PZCLxAEEhOTuckYBfJQSw laMbmCVlHFEsIVNQXpIILQ2Y JQRVX0ZDBAADPhAGZngQMdVO WAOPIWIGFV8TATYzXizoNUlW LQXBY680HBFcogmfLgIjSJ5d ZY2MCFWNIN5ES08fDXkKUFlt Fe7RNNUvLE4tGLtkBQTuuUGs SThsPvDmeGSnWEXjBNHEMC0E MPGKO6APYGZUKTqYNouoM4WT RMbQBvVxZIKbAXKQL6oROQ4X FwarIXGrX0SgPWPmXYJAMwKs IjHNKHeUNKbATXZIUG7FFYLq PQTkMNzfgILtXSXjkvYwZ5Mk XQGsvzQEHhUARM4WGXUKDWrJ CWKZZLFKTbJZT8FZDHNZRdPT JfjKXcPYO2TDNBESL38XClLd VOFCH95EFzMVN6VHJHj0NTPz pkvsNvBmji3bCS8VLcINX1uD XOLRPAUVC0EQPjINDw7YMUqo PV9CEuuNZVQLMcAHZeMANHcS VEVEXHBhclx+BNKmrzrBZ5HP GAYSRY1FG6sJOtRUTHGUFgKL G3fNNGIhPMDgJCkuOQZVHmBW ICgyMCUpXHBhclx+LSBcflRV KL4KAC4WRNTTSiXDQXClKDUA JBXADwPCDpBOWXSIOQHWMD6W ZpTKJ48fhNOqGY9iGAv+Tk8g PvsAM5YYMEmbTXrGSDJURMQB QaIDF2dYUcTZZwFRZFYTEOaP SUVEXHBhclx+LWCxkm3WUAaL QGWGU0VHL6BIKLMRSUuXInBO KO8ZEYaRQVzSAU1BIPDEDGFz kTMfSI0qSMn+WIVWGG5TXZeP ZKnoWqJEQYRAUX9WTF4MOqbC RmoxVuGJFYFXBtWeNs9XAL8Y BKuXIwPXT3hpEDIrOHYCEDAE J5JMBHvmOJIgTX8lZMXFVYAO LRqfZLHGDBCXK25PHDAdraQk EPFwALWWACtRLPhuTAJOMr8X QVRPVVMgSFlQRVJQTEFTSUEg VN5lUPbPMFQBV0cVVm7WAoVg gYLdZT3nYTg+KPJAOD2NV3vW IhESTXDKSQ7DAkYcSYGwUmUU pJVwGOoYIaF9sZcaZOIvKSip CJE2s2ntlLDrIBOsoTBgYXDh MFxhbnNpXGRlZmxhbmcxMDMz AHY0mtCrNTWkMZveVQSwFNnm If1xvARluGrxCrYdONQpq6dx pdHLpeatkAv0k2jsDVYaMuU1 pMMrRFvrV9lbwgBqwQXdJGCt JVs0xZ76DSFekI7acYOzSTqn cxPrOjE7WJzgLWYhYcN0FWLx zBLaGRVcN4ohPSVxKNhpSORr PPskuMDfDHH1iNbth4A8uVFe jEFttPbxDkEnKlSyYaRDt6Fl YZx9gXimV1BjOWVpGoX7ePUr OWHhFGhdQHUkQPGnhaI8iN43 PNfhztY0hZXol8Ush35mp432 iR1jxIOuTTN2GLXvMPColCMo DNChAUG7YRHzsHHiV3zeQJXi FO8gphaoSWfqCJlkTFYbyAS6 CXYefNVqJ0YzWPOcKYezWTYj pez9BhVuUy0lvKZiyOhbFKpv y6qhf8izoDQqXhp7MNGkMnFe YjzwVYjsg9Sjv3wzIZTmss3e CCV6sAPvrOudi1M5dLCtFZVy wUKgRMWrNK7hdSWvHXFlnS2a cmxjXHBnYnJkcmhlYWRccGdi vvGzGe6viIxuDAU4SAmnS6iz wE2wOsM3FYgqC7nsxU1uVYo0 UHxhEGVtdPJ7qfB0VTYlzEBn P3VqkM4pHQUqKT0kvbx6m4an YAK5MImsNRYzXrS8adL4WRPy qCNgOHNnqXmjFJzzi281CBF7 LgXoJBHgd6XoE5TarQtfO10g wOdiH27aHLLksYiteY0stYnf dM2bPuRiAiCuSOiafIofXE6j TRZjX9lmyNAwHHKkUGExC8sq JhXsxF9ohCltOGcdorHyBENt Hup9VCVmuOIuPEIfKbo7ENCm VHOqT58nxzcxDWO5aK6lm1pd d2UlZFaoMWT8MEQgn43tQKio frE7CMgwIw3wWsKdZPA3VLiw YXJ9fQ== COMMENT (test code = r2dufYDoDDCoiBI1MaEcYPDj 3359) x9hpa6VigZTboGMwHIyloCDn aeMcvv95iQN1qJ41PT7pEZPn LxL1CZKkucT0Qsh1TGPvHBTf nKWaY699s3awc0whtxEloUX5 bJwuUSLiirflCiL1SZcgMGRf efbmLOb5EGaeUUTxwVV8VBJu lCGzE2VcYHMeWL8cqzp8ZIE6 XEdmREEhUwJ8NUOglHLpBHGx nAiuBAqxo728OFR5NcCtFHUv qpBelNzesH8cMjTtDBTTtR0b QPYfILYno9F7POq7GYEzpfGW rR1bwccbJJJnwTMhTT2toc1n fAnkUDB8RSTnydphIGPlQYEx u5Vzn9lbxFZnLDHtGE03ZOZt DA4ux2gbzz0iaYZsZOTeleEw nF3pGRQeTSUvtWGmwXhbDe4p QpAwxBy2nbH4vMjmONSaQYQi yP4mhFKzANrcRFIlIGMwMYCn ZHVtLiBccGFyfQ== SYNOPTIC REPORT (test LUNGLUNG: RESECTION - code = 5765) All [employer] Edition - Protocol posted: 04/09/2022 SPECIMEN Procedure: Segmentectomy Specimen Laterality: Right TUMOR Tumor Focality: Single focus Tumor Site: Upper lobe of lung Tumor Size: Total Tumor Size (size of entire tumor): Greatest Dimension (Centimeters): 1 cm Additional Dimension (Centimeters): 1 cm Additional Dimension (Centimeters): 1 cm Histologic Type: Invasive solid adenocarcinoma Histologic Patterns Present: Acinar: 20 Histologic Patterns Present: Solid: 80 Histologic Grade: G3, poorly differentiated Visceral Pleura Invasion: Not identified Direct Invasion of Adjacent Structures: Not identified Treatment Effect: No known presurgical therapy Lymphovascular Invasion: Not identified MARGINS Margin Status for Invasive Carcinoma: All margins negative for invasive carcinoma Closest Margin(s) to Invasive Carcinoma: Parenchymal Distance from Invasive Carcinoma to Closest Margin: 2.8 cm Margin Status for Non-Invasive Tumor: Not applicable REGIONAL LYMPH NODES Lymph Node(s) from Prior Procedures: No known prior lymph node sampling performed Regional Lymph Node Status: : All regional lymph nodes negative for tumor Number of Lymph Nodes Examined: 3 Dusty Site(s) Examined: 9R: Pulmonary ligament Dusty Site(s) Examined: 10R: Hilar Dusty Site(s) Examined: 11R: Interlobar DISTANT METASTASIS PATHOLOGIC STAGE CLASSIFICATION (pTNM, AJCC 8th Edition) The suffix m (or a specific number) should only be used in the setting of multifocal ground-glass / lepidic nodules that histologically present as adenocarcinomas with prominent lepidic component or multifocal tumors of same histologic type that are too numerous for individual separate synoptic report and that are not better classified as intrapulmonary metastases (e.g. numerous carcinoid tumors). Multiple primary lung cancers showing different histologic type or different morphology based on comprehensive histologic subtyping are better staged as independent tumors without m suffix. pT Category: pT1a pN Category: pN0 ADDITIONAL FINDINGS Additional Findings: Atypical adenomatous hyperplasia CPT Code(s) (test t6mflYNhPYLryAV5WyRyJJBz code = 3357) g4jvm5IgyRZssFErCZclfDOw piTdwy77mDY3xM82RU7dJHYy LrH5AEZsgxS2Ozf5VMZqFDEg xSZwN127j9tmo5yftfKqgOV0 fBvpGPPmxsdhJkF6NZarEIVi fokzLKt3DBurYSAfvCE7SJCe nQMeI1OoAWGcKM3xwrx8FWM5 RWbbCDFkFqY3MAPpnNQxBKVf lIcoVUryp485CYT3CcEdHKNj ysTbrDthzC0fYkXsYZK9CYVd ZFviWALxEHavBQUVO5ixCGG3 CLINICAL HISTORY n3gzmGUxNIOnbIC6ZoUgFYYp (test code = 3356) k4jru1SpbFQfrSGbILildBZo ipRplg97dYQ6cI78BC9cMQPs VxU9YWSppnU4Hww9NLYgVXCj kLXsT242t0cxp6vfwqFeeHA1 iRhxVBHoaipsDdO1YOeqGDOi fvfySKj9IRgyMHJxqKM3BERd yBEnO4WyAOBuWV2lbzv0LST3 HReiQNTaFyN9AGGgwHQuWCVi jNfiYAqpe575JZD0DzQnOJFn vwCkaTwvpN9mTuKlLYYTXVXd j1JejgWtcb8gIRZywMmwvCUe tV7dCXGhtl2= GROSS DESCRIPTION n6ofoJYeWDGfgTL1AvRwOYJl (test code = j2ytw9TgnYGkxBDqJRqcoXIj [id number]) xtLynd96oRF5yN48LP2sVTAa JlJ2PCSazxX6Chh2RMYmJCOv sYAcF824s4pho8vsudUlqOJ6 CVXtBPDtY1SnQV1hSXJwyCEs S69uqUNyRBN5SCJvYUAlbGIz RYHqHBU8KDNdhAWmH2pyEAPm QY9iwmjhHYkjTAtrKGBmdUV5 LFNmnRVlC1RhLGJzQZarBCIo try4QtHdFm5dbAOctShcHOeu ECMub8acZGCywRKoBOQ0FFav tFJeLWUpNXYiHTp7CNQpEXgr jPMtEG4iwDvwUmkwtBdae4Nb dCBcXGlkIDUxMDAyIFxcZGIg U7UPIKBlSPJvKUZdFXBxFSi9 URfbZ9BFPMSzLFYyWiq7Udk7 ViH3CDh5QCJJLa7lUeD1YMc9 DxB7ZOK9FJKdTZvitMTjCTsh ZmwgXFxmIEFyaWFsIFxcbmN9 XLEaODjtIGDlAxNwKF9gWNzy oCriOf4xEGkdBWJonU5uKLT0 CCqxL5NbVZ46UGXMrCP1iS1f DLssQLQtjrepisJfHNUuO1Yg dmVkIGZyZXNoIGxhYmVsZWQg a1d5cOB6yVKeyXZ8dKBedXfn DfKdBN2gdKYeHO0gQPetTNur ksRwo2QiWJ11dJQglgUulcYf FdL7VVBte44mMZGzwVLsSCTy PxBgB39cRA60iPFdK573qLTq pHjymFhstb6sNNIftDTsxBS2 LZDatM8qzK75yvGwcnCARC10 CLGviBDvBCC5PI3wMTXtkwze XFGbLNMzZAV8HCizjO38pQMt XGZzMTZccGFyfXtcKlxlcGlj p4QqzPXlEQynGLVbNEKqLMpy NSXhG3OTNRShQGRlHQKuOPZb IFl3RYvhU2TJDYEaRFBcRah1 JXA5GhP5UDy9TXVQNp8oGuG8 CJm5EkP6BII6STHbVNqecSJd IFxcZmwgXFxmIEFyaWFsIFxc qrV6UOKrVbWsUm7xZRsohXmb Zm9yKQojFR74VUHhm0Hesafx EhumaALtFYF7LZKlk40cAXPJ LlxwYXJcZnMyMCBSZWNlaXZl ZCBmcmVzaCBsYWJlbGVkIHdp aKkcmKtxYHWdqDbpjrHdU8J6 omPlEG4pBVJhKVHfR4DlMATc W22xRASisA1gNDXmGC1qCPTu jCG7fQ7wYSMcYzNfibPcPAWh ISOexQIlmiQyivVzv3FqNyIa eF6dpWDuz3VhLCK8Eb2raZYx ARKvbwO0d5PzEZapYRVuAfvc LQVoH2XtO8SzooAtkQFxZJNm udDua7rjQIQ8GQGurQQhmCNe UyTaEttyEAI8v8axNWWcnSKk ZHG8KLsbkYPbGRZsLNJnUCnl CcBYLlMgBnJ6LAI7VFG1BsB9 PVq4VAKTCdGvEzWqWpEuGgJj OjIvPUs9FBl4QYkACvV5AYu7 FASjQYPuTIMlABRqAHg4ZTKo XFxmbCBcXGYgQXJpYWwgXFxu I66cQjEqWCNJTmBGzD9smEPJ w0LmRMAWzFgghxkcQespeVGt MQC0GAFlw34fHCMCEnbpTSIr ZnMyMCBSZWNlaXZlZCBmcmVz aCBsYWJlbGVkIHdpdGggdGhl WYRrhRmarwJlH5F5vyIwYK4i ZBIbJVFsK8GcYYOzS79fIKCx oG4gLOAuBR5xXPUgxVV6uM5o IDEwIiBpcyBhIDAuNCBjbSBh ssOwbwKyb5AsXaJynI9zzNZt g7LxKTAlKDreUW15OBBzhF83 fiFomRSwJPQrp1ZhvXc2aMCi SNedJAVobA2rqW6kRdFmw0vp zBxye6OomWVbYVdhHZCkkCSf ETtkdK6kQcNja7hveEw0HFlf lbF7YKLnxp17AUlwAJDuJ1Ww X3ZyBZpjJTD5AGXwEsIxERVf SB3HLrErPQJpDwXdYFVbYVi6 YOp6JA6NZoJiFVFeBVF5CWe3 SSQtSRe4VPlwZE5POYFdWbs9 WyicNQJ7XBF4BtHkASSyAkLv MOCzMOhrBwCCesmigHEjZB3c hWzxqoKnCOByROr5vkkqRUFw H5t7IYPuuFMbUDniZkJaPOPt clxmczIwXGNmMSBSZWNlaXZl ZCBmcmVzaCBsYWJlbGVkIHdp dGggdGhlIHBhdGllbnQncyBu EF0nUDPLGc8aWB8vTEq1rnaf IIAxQ6j0OZFcfMRtXJfoGoMv IGlzIGEgNTcgZywgMTUuNSB4 MSPkGRO2VBVyUQYiiWFtlL6c VQMkW75cbnJiG0AvePtwACVi cGFyXHBhciBUaGUgcGxldXJh UFGqx0EcNClqFTGfRUNtKECw m5PaFNDgXQGkr63uFKQzBXEv VWtqVXEmXRPcQU9yZUCtWkBj u0kmWNWlmrPeBY2oKRCuFCCg CiRrv03tXAW4hP7cVQP5DU7j ANSjutRmx0DwrWtmLYUsCPSu bWVuLiAgVGhlIHJlbWFpbmlu FoZuaJO1uzXhCWW6hgDiJ6Pa bSXrxjNcNL2uwv4zpuEvlnJl q99cc7YrJms+FLOuXCZchO0f QSqyYKHtxnadtDe4PEHsX4Sj b42aXRE9rkFfIMMdGMdnIUVa XcHkqZUgCdRdaYCmMqSqN03d aWxsLWRlZmluZWQsIGdyYXkt wYPmMGOxoANsHB0tx0Vgn0Fv bcAhSE25FGGvZIInKFXaoYO4 lpWpuRvmdZQynsNlZvndJ91o UrHkxJE7iQNnjXHxHW5rjNus YMjmsSUiM4afGaRiRL1hKRGv DOGpIbDyY37rVaVyfTU5oVMb xXEzijTpdwYgKNQcUaK2MTUv YYW4FSPjKGKqcWOkvFrkINZg cS3sEBkxpRWctR21MBVbkb0c bp6qoAvcDIVpGYXegUFxVR7w CGHyFEMtk93lxOoiRGJtfmAj C6g3qTYoPV3zphlcneWzeqFh KU49ZEXgLKZur84bjAtbHRUt ZXVyYVxwYXJcflxwYXIgVGhl IHJlbWFpbmluZyBwYXJlbmNo fI5jJGvjRNQyGOAsjjWbh8Cy wkv2TSBokJSvl8LykWC6nXZg CIQrW9Lvb31lBWgvBOWvOHQs tBetXUm4OGIlydWpk0PgyIu2 tOGgSrRpU7Usd9GipBqgpE3l dkPxhPRtLJCzELYau8JhDktz HMCycQDnYGabwqQrq2ByEwzw aS7cERBweSY8VRPeMRKjEFkc IHQhcBWtGALwP4Cia01rZ83k IVkrtmqmYSAdLHUzVEF2VTOd dGlyZSBtYXNzIHRvIHBsZXVy RDkvAPDeBIHaOOC0INPriIVi q6DsfPX7wCUkTP4wVLKvOIOw NAXwXdMvoBW0qbBuDEEsMWAj e28dzKakYFKIRgdoHeZnffFp QG66PTIdonKbj1Fio5Iah38g BDKwLYRil6KidZihsAOzdGKz AWlwg7blldIppJYdPBI2ScBl ZPPhDLJue9EpGpkwvk6lmLMv mCypWNJLNYbzN8Pxx77xMHMd FIYnj5GplNxdkUXlbESujKWs u8Jlb0doNITjGWomYiUmIgIr F41auJMgnR87VX5xDZZcDCwp HQEzI6ClGWDrNQI8XTPou4Nc j6TsiKZnVB3ugIutYXxieGAb L5xfXUOzZA7hh3GiUZUeBIAb M2KojQloZONVXNR8ZUCit8Lb f9KodRHkAM2mhUzkOQheiHGc L7miZGGgMI0bLGLrMDinMW3n ZmFjZVxwYXIgRDEyOiBBcmVh BU7vZWNjLXYuREgfX19tR9Xu dGlvblxwYXIgRDEzLUQgMTQg JqT8rqwdbf0ndbPjOJAcjzYt E6z6sDIvhWPgINYacnHWmXNl k8EvRRjiYXKiBBATSNSoDYIS TSbNW4IBQSRee1xgiHohq8Vf rCXtIP22FEFlcPDvMMO4YB6p fVxwYXJ9 MICROSCOPIC d8avgTXaKEUjqKP9YrFtSPLs DESCRIPTION (test r2kfz5BwcUOdoZUtBSijrMCc code = 3371) diHxcn92eGP1nK65XA1nDOLl VmI0CXQhimJ4Ndi0YLIvQEMj tEQvZ223v6wfb8bxyxZouZA7 dImmQLUcenqxNdF1QUyhIPTf atdcBWk8BRdjEAHtpYB4NZJk wFQcL7NnHDEvHM5eirw1VNW9 YQkhSAJpAzQ3FXQngEAhZNGg rOjgFQwqf736DNY2DbEaJNZl jlTinJfyzP9rAjEhAUWBSOAq b3TjEEYxSGZxccatWGCkIEDq cn0= [facility] [id number] 08:58:34 Test Item Value Reference Range Interpretation Comments Case Report (test Surgical Pathology code = 104) Report Case: [id number] Authorizing Provider: Ernie Washington MD Collected: 07/15/2022 09:20 AM Ordering Location: [facility] Received: 07/15/2022 11:36 AM PERIOPERATIVE SERVICES Pathologist: Willian Restrepo MD Specimens: A) - Lymph Node, Pulmonary Ligament, Station 9, station 9 B) - Lymph Node, Interlobar, Right, Station 11R, station 11 C) - Lymph Node, Hilar, Right, Station 10R, station 10 D) - Lung, Right Upper Lobe, anterior lobe segment ADDENDUM 2 (test code k9sxxDPrKSJawRQ5OiQgZOAj = 3382) b2ljy7GibSRwpOVxBJetuWWa wpLqzq79dRN8yI19LS2xBPJm KjF7ESJponP5Ipe6TAXoQTKs rBBjE839y7dry6zyulSfmVS1 hBnbPNYgyswiXfG0CTqoGQLs bdvaZJc5ZAkoPDBcyNI7NMCh aUDhE0NyJOSuPM5eolu3HZD2 FGypFCGpXqU9XYCazMGqUFIg qKjfOBubs922YOB3AbXpKAPb tkInhXtiqQ5gAyYaQZBZqBly XNRpNYAeKZHfHDyeMGDmcO2o YCioa0EcMOA8wdInVUWujiQp xbMtuJp0fsFpTpOMG4PCQB98 uYG0cD2aGFJhf5VkcwvlxEWf Lp2eyABmDBR6TM9xn6bqjx7d aDMvTUoxPd1uEHAeaamcvq9s rMKgHJVdpsJDSDHXCDR5PKrf YXIgRUdGUiBNVVRBVElPTjog Tr9ZAVVZEXZNUSIPXOUleidm YXIgUGxlYXNlIHNlZSBhdHRh B5jiWEDrE9HxchZzXDEmtI1o bOHbc3LhHwQmqMljnbWtEJJw aWxzLlxwYXJ9 ADDENDUM (test code = t3mfqJExBPYlqWQ2AaBkKXNl 3381) k7idb8AigTOjkLFhQQdshNKh tsIyjp31sAU4dA53WE1jTSEd IrU3PNCnbsX6Yhg1LYTgAELq lKWsR401z9hsk8pahfWszEW2 pXsqIVBgusuaMnE0WNrcXLZd pejyACy7EEvoKMIkfGJ0JGKn yFBaZ4LcWVNxIX5eugc7YAZ3 EMyiSXMiOeN1CGGlfBRwTEVy vHlwKMafu523UWS1AkBmFPUe waVeaFjjzR0oMaHtWLGWiPbk ITPzEDNiDHJtYYyxHFMoaQ3a ELofz6EzNAC0cxTsTULdhjWx lJbiWFEke3JxqHYgb5UrELIX AFGzfC5tsI6pk6YimE3cyYCh Fu0pqZQuPDU6KX4xn5lcrp6v kRVuCWwtIn0iNSOydzkrbg9x cGFyXHBhciBQREwtMSAoMjJD ZbFuyT1rKSl9DOAROFGCZ1YT ANXyjPGtOCJDSdLSD26EQZww OTAlXHBhciBJTlRFTlNJVFk6 IDIrXHBhclxwYXIgUGxlYXNl XNImUmIgAXFvBTT9gDOxrCNj CFLeEC8xTZXyfjYdi4Q6OQRb zgEusAK8qWQgHZLwy9HidPDt IFxwYXJ9 DIAGNOSIS (test code g3wqmELpTAGzg2akMAHlsRPc = 3220) ZzEwMzNcZnRuYmpcdWMxIHtc cnRmMVxlcGljOTYwMlxhbnNp YEDgqURmV0WtfwkcVMcaQC6z ER2vkSbgrOFovXJfHNKfYaWu l0gnl949zCBme8ruBVRExodt qZu3jRjkI87mi0E4VafvZ3nc JGS3SIbbwlGxtxGgLKArnON7 BRaqvvJvQWIwK4AuIH9aAUji uZIiEQM2lJgnQMQwxdqtFkR4 JGjoWWOeeweqIJx4VMlxNNCh vMQ8LFXedLKlT3UsVTVrEM5b pgx2OAV5FWowFCAcGcU2FHLw xQBmXTFieGtnFXilw444HJZ3 AwUmWTSsrjXdsLkfxI6hAoCf UJjwHrBvYT3kNMpOJWqfDu6E ODrvMHBKAI6OMVANIJrZG9GN TE9VLLENGJLBAE8MXFneGNDN C6zXIG3XYslqIODyF2QvZLDx ICBPTkUgQkVOSUdOIExZTVBI RX4IFSUbOKAsFHzoqYLaLQMu shDjmJHaVHUkCGHXNsHXNS3N JDUUJ3PVMQVRHvNOHrvIGqMQ CPTSMTKWUJ7EPPDbFkkcGVeM CRHYK549CUYvqiitAlRiRO0z GS8MRKOBBO7KF68dPGoUUUeg Ah2QQRJeVO9mGNgrCHCwxSFp JGlsRoDuxVVwELYuCASMZV8Y CTDSE1VIWLUOATkUEbddW5FP KVrQHoVcBPTwXSBUP8iWOZ6T StizGHRkI9UoHWGkCOHWFsLb ZdYOGArCUUpZIUHQZD4FPPTx SIUwUCigcRAeBMCbpdDoF9Zj XMBswfKHJjQLYO0DDDHNJRdP QPNXPVIIMuVXA9FXTSPSObTY OfuQPmLYD1NFPTVWO80HXjEb IVAMF17MOjYQP4MUJOd3PMAg vyxpRhDxwa1xBK1BMjETI4qR FMZCBQBCM4CEDkULDj4FVSvm MS2YNweYORBMLuRLAvFCNEgC VEVEXHBhclx+MTZrofqKB1ZX ZDNINW2BL9tUUrBLNOZOFdSX J4sIPEWxDKDvKJbzPDXLOsUM ICgyMCUpXHBhclx+LSBcflRV MN2OHC9HXVDHHtOQFQXuICNO MGMTQlHNFjSPWXNSVBPTYU4W VgDRB49kfBEoCZ7vSIh+Tk8g QnmKY2YBNTiuOBeLOPNZJXLF OyIAF5vRWoEKYsSOPEINZPzY SUVEXHBhclx+TZGecn9YTFtN FIFVG2LSL8AUDGQTBStUGhLT LY7ICHmBVMkMEQ6JAJDSNLVy mOPeMI7tUBh+VLKUYZ4XTCjZ HDjgEeVKIHXPBS8MMB9ITxbI XokrJbNKCGSLYiUuMz9EJK4U RUgZCjRER3xvCAKeQWRBNPEY Y7RDNWliVIZqPJ3rJJGHXOBV SDupZMKQXNMOT79JVJCkplUs TKBkXPJGQGhQSSzhMOXDMf6S QVRPVVMgSFlQRVJQTEFTSUEg DF4hRPxSQRGRG3sISx7XUmBt fZBnHN8vCRa+RFUUQH6XM8rR FkXMVPCRHJ5OUoDkAFWvKfAQ wDXpKPzGByR5fAisOOMoNTzm HEJ7h0vykHGjGTJumKJoUMMx MFxhbnNpXGRlZmxhbmcxMDMz KIX0fxAkSILqVTngSSYqIQhe Vf5pdYAdtFznYlWjSHLho1yv wsTDnjguaJy6z9mhIENmAzG0 cXElGOzoX0buhaMkpDAgVJQd QBr8nC72QBEolP5hnGQbGZmy pvXyTzR8RSmgSKNmRjU3UGHy yCLrKEGfO7xhGWPwARorEPIt EOdhlWUdJVV7cCfzw4W6yIQl rCLpiBwyWkDqIdVzZlEXg7Wd IWm9uNoyR2LkIOQvTwG6cSDg CUUjSXmeZBAsEBZltoD8cI11 CXepjjY4tIJjq7Fuj06qz631 lE4dbHEqLGD5DPRuOFLusEYl MBTsSAU9VPFvqIAoX7vpTJAb TU0nfskyKBzkVOlfMGIxcFJ4 ATQozHPgX3KsRTMjQOrlORZv rac9ZmTqSl3rjOVhsZdtBNpb v2lym1ietPHmGqq8XYBdFcFz BhibEIaun5Nnr6voCBXcgd0m FAW1tHIckNjsn0F9uSAoDQSw cGToDVNrQX8irMWdRHNlzY5n cmxjXHBnYnJkcmhlYWRccGdi kwEnAs2zuWvqIXN6OImwL3dq eH6rElN3YSubC9uiqZ6hCZe4 RAqgKUCikEF8luJ9HVXwyYUx K9HksV0bXPUlSI4ralr1f5ux VLD6YUffIQHhZqW2ccP7SAYf kLIpHHXvzGrbSKzje919HUX8 QaCiUUGbs4AyP2XzkGwxX87s pEguN99yDXDhzOabvS8pzNpc gF0rGlCjViQbCAafbDmaMO8n TYAqA2eozNYxPWMtXYMbM7qh LvEmpI2fcKaxXEuicpCyHOAy Hce3XPVyoYHgWWFdDzb1FJCq WUIlZ59yuucuXIZ4dD4nn1gq s8WrPNeyJRP9OBXhx56jWAmo aeV7JJiqSs7vRaOsLJS7DHbr YXJ9fQ== COMMENT (test code = f2abuVKiFDJylZM2DnAyDYFw 3359) l7uwr5NabYSgcBKlSCavoOCy gaFwdf79oAL7nZ55JR9yBIAt NxX8QKUkonN7Sdl6TIIcIEHz iEIcC149k1trt3emqeJedXQ4 dDaxFZOboxppTpI6TNmnQANh eficWBu7OGssUFIhmND8NANv eBBqR4DoQDEwIN6itkw6IQS8 ISslGQStLgE6XEOfwWWbETMm hSphKYkeb133CUB0WjZcYERj wfIjhLcvwN1wDkPoLFOGdY8p THIsRTRpo1K4MNz3KHMstzUF qK6xxyadNFCdcMOpVQ8ubx3v jSggRUY1EHDorwwxAQEcZVCz m3Gzx0zmdEWvMVIhKT51JRKy IW1gy8mscg9ttFFhZXZvjcZa xM5kTCUgFCMwqBRidTnfYg5z UgVfnBv7axZ7pSxuLWMrXNRx oP7xuSHjEBxoXHFoMNEmVRMj ZHVtLiBccGFyfQ== SYNOPTIC REPORT (test LUNGLUNG: RESECTION - code = 5765) All Hgdykmcyp2tw Edition - Protocol posted: 04/09/2022 SPECIMEN Procedure: Segmentectomy Specimen Laterality: Right TUMOR Tumor Focality: Single focus Tumor Site: Upper lobe of lung Tumor Size: Total Tumor Size (size of entire tumor): Greatest Dimension (Centimeters): 1 cm Additional Dimension (Centimeters): 1 cm Additional Dimension (Centimeters): 1 cm Histologic Type: Invasive solid adenocarcinoma Histologic Patterns Present: Acinar: 20 Histologic Patterns Present: Solid: 80 Histologic Grade: G3, poorly differentiated Visceral Pleura Invasion: Not identified Direct Invasion of Adjacent Structures: Not identified Treatment Effect: No known presurgical therapy Lymphovascular Invasion: Not identified MARGINS Margin Status for Invasive Carcinoma: All margins negative for invasive carcinoma Closest Margin(s) to Invasive Carcinoma: Parenchymal Distance from Invasive Carcinoma to Closest Margin: 2.8 cm Margin Status for Non-Invasive Tumor: Not applicable REGIONAL LYMPH NODES Lymph Node(s) from Prior Procedures: No known prior lymph node sampling performed Regional Lymph Node Status: : All regional lymph nodes negative for tumor Number of Lymph Nodes Examined: 3 Dusty Site(s) Examined: 9R: Pulmonary ligament Dusty Site(s) Examined: 10R: Hilar Dusty Site(s) Examined: 11R: Interlobar DISTANT METASTASIS PATHOLOGIC STAGE CLASSIFICATION (pTNM, AJCC 8th Edition) The suffix m (or a specific number) should only be used in the setting of multifocal ground-glass / lepidic nodules that histologically present as adenocarcinomas with prominent lepidic component or multifocal tumors of same histologic type that are too numerous for individual separate synoptic report and that are not better classified as intrapulmonary metastases (e.g. numerous carcinoid tumors). Multiple primary lung cancers showing different histologic type or different morphology based on comprehensive histologic subtyping are better staged as independent tumors without m suffix. pT Category: pT1a pN Category: pN0 ADDITIONAL FINDINGS Additional Findings: Atypical adenomatous hyperplasia CPT Code(s) (test s4uswJGcVKBwjVD6QlBvIEBw code = 3357) f1ign0RcdSQabVWzWXmgvAQf whMowj75uFE6vB69HN2yTNOb ZpC8RDOidtI2Euw6MMMpCUSr cEUdY907z8lif3salfYirXM5 oRlaGUHhfumxZmD6XWekBOYz kuneGSi2CYehSSBipJR1JWWu xKCdH2DbIXWrAI3ggdu0JNT4 VOimXFOoMkD7WQLraCIkDGKt wQvnDIsec696WVI2OkMnYESa zcMgzUumuN4mDfQeMSP3XARk EOdeRHXwGGcrIAARA3dtMGA5 CLINICAL HISTORY y9afhUEiCFYhcSD5BqAkDMKk (test code = 3356) p5lng7OjzDCppUGzKBxnwSWv ajDrgj09rOC1kL51VB1qVYXm IjL4TEUrqaC0Vdi1NXDwJREl qHUvE851u1gqq9qiqcOyhFI6 yYqvXBGtaftcJjR4RUnbWDJn cqfsIQi1QUckEOOdiUY2CCVy lOXzA0SwKJGuNM1zing3HFV2 NKueNOFjCiT0PFTkaIRvXLYm hJmsSXpuf042WGU0YbXtALQx ugHxeAojwZ6zWjBoIVYYXVBd w6NkctZofn9hTASgkTjzmXQf uJ6fUOCjuk2= GROSS DESCRIPTION c0aohQAdQZSzsET2KqTyJBOj (test code = o3dcm0FmbUHctGYiVEpfbAHm [id number]) fmAeer46fDG9jM11JC2mKGXl XwY7ORNwckM3Skn8HFFaWMPl kFArM567w2gtz7muewZbsIE0 ZDNkZLAsL8BuKW8hKPErvYGw K62qgXVaBHD1KHQwYRGgsBFh KENtCDM7JSRcqMMnU9myTVUj SQ8bybbdBIydDJagFHPvgAZ5 KYFdmNFwZ2LvQLFqFEvoUVGw udd1IvZgIq7xzOQvpAerJIqz ASVbq5xmQQMwuWSkLDJ6VIod dNTtNGQcZALsNBh2CSKfDWkt pHDnDZ6bvLjrDbmwzJnqn3Tz dCBcXGlkIDUxMDAyIFxcZGIg W2MAPLSdUWZnIHKeDRNoDIl1 EQtnM6CKNVFfYHKsJan1Ahs4 MpZ2KVo3JGHVNv7sUtD1QTf9 IfF3JJD3CPSdMXzalFOkBKkz ZmwgXFxmIEFyaWFsIFxcbmN9 PZHgYQrvSOTpIyEhXP7yVGew mXznJl0iHLftCABakE6mEOD8 PLklV3SsGA89BKGKmFI1wS8x YQwgJWOarolecxVgPRJrK4Su dmVkIGZyZXNoIGxhYmVsZWQg w2b6fVZ8wOScyVH3vWYhhNne KnMjOF8kiCKnXO8nTCtkZTah bgZga0RyPZ28uDTqraHqvzEw PdA6LLEuv95pIFWrqKQiLIKb XcBmL34oTR85zROnB455qBUd bPinzDeldx7nPRYpjMMcpRL6 ECIzpQ2nmE46maFbczHTCX27 NRHkzRFfAJU6WT9nQXOoriyn GESsVMHvUXZ5HOetfE00oKGj XGZzMTZccGFyfXtcKlxlcGlj q1PmsNPmROgfNWQfDKBiYVqp AVXtD0XUXZPbYXHbOJEuXWMm VCr5DUjoQ5HFLZLdRWTzMev2 XMF0JzS0KVn2XOULOv9iLqS7 JMa6BqT9ASH8GQFxAPnrxSAd IFxcZmwgXFxmIEFyaWFsIFxc fqO4CDReOgOcNl7zGLpyoDva Sg6tGFuhSF67AQNfo3Fbhpej NcqecNFeUAC6TDZvo38sKIFD LlxwYXJcZnMyMCBSZWNlaXZl ZCBmcmVzaCBsYWJlbGVkIHdp tEyycJcbLLSbaMjscmNqA1Z8 srAjLR4oAZSrMVCbB6NtSMFw S38lCMPokW9jNLPsUJ9cCNVo eUJ6rS5vOFUqRaJwroJhFOIe ARCtlCZmgtFykhUlt0JuZqTr jY1ynHAdp1JjOFP2Rv8kbWZk ADSxemS6i1TpNKjgTEJoQrrg OPWvE6KzM8LyfbCwcOYcFDHf amTtw6svBCK1HIQezYWgdSTa JfHsFmltLWD7l7hlFSKjqXIs AJO0YNxdlHVeNJVzECZeGUwm LfYBKmEkZpU7KKI5GFT5ToT8 ABw8MMYKJlKqNzSiUeYkJxLr GiJsYIi8IJx6UXdGVmL2GFn3 MCPaVNBvIEVtXSCnBCk4OPGp XFxmbCBcXGYgQXJpYWwgXFxu Q89mSrDrFZYDSuXPsW0phVTO c7IjIFWUnPgokxhyTnwytQRd OPE2QVBxs40jZSXWFinuHKQk ZnMyMCBSZWNlaXZlZCBmcmVz aCBsYWJlbGVkIHdpdGggdGhl HSOqqIuhvdUeA5B0mpQfIR7m VCTaRDByL6JbVNAoQ61hTFUr hQ9yMSJuWX8rZUMbiCT3eK3j IDEwIiBpcyBhIDAuNCBjbSBh aoBbszWwk4SdEgHxfC8wwIDm p6RpGAThVQqeZK54VIOtgU85 jeUyaMIwXUXbm6PwiLh1gGYr NSriXLLffQ9etQ3mNqMpa5tf tEfna9EhnWUxPSxrDQDpxFZj RZfhhF7nOqMet2amtPj9JFkq ajG5EVIhty24XXszSQWqA8Br T9RfCGjvAUH5YMCcGxPxZQRx GC6YEoTcPBPuHbPdJWIgRPv7 DCy0QG0DFzWjTHLxEZU6TAp9 CLLuECe8UAwpBH5PMHGrHae9 IavnRIN7PJS7SsEfAQObBjEt TUTlAIhsTeZDahatuBSxQA0f eIepsaMyDNPpLBy5pvswDWAr Q9m7PFJrpRUoMNjkJmKmNRNj clxmczIwXGNmMSBSZWNlaXZl ZCBmcmVzaCBsYWJlbGVkIHdp dGggdGhlIHBhdGllbnQncyBu FO8zKRCFEg3sDJ9fMJr6gkod OPIvG5z3YZAchYNbFDffNbFo IGlzIGEgNTcgZywgMTUuNSB4 PQOaJYS7FMXuOZYeiNXoaN7s OCCzV99rnzMgU5XzqMyoRCIl cGFyXHBhciBUaGUgcGxldXJh BXOuq9KfIQyvATWkMDQuESXm z6RrZSHoUBHeo27zEJShFAOx ISkiMZQzHJVmNW3xDCLrGiWt e1vzOAQzasMiLM5wPBFbSTBy DaFib35iZRF0rV6eRBY3BZ4l KBHyyuOtn1CyfUkkUAMoQGRc bWVuLiAgVGhlIHJlbWFpbmlu NbIezYA5zzGjXQE6tyToS7Ga nHCmfiUsRJ1wyp8ezyFpqvSv g72ln1AcTkf+FLPeORGpjJ3m DQdbHWFbhljgoEm4IEHsY2Cy g96zNZK2ceByMZWcOTxtQTPv QxXblOBkRuXeoAZvGrVhE13x aWxsLWRlZmluZWQsIGdyYXkt oEIeVZBviSUvWS4hu8Gaj1Qe myXdJC34CUUvOBLxSRFgrTX8 keZswMrrrLMghyUbAeicJ48l FvQagYV1bFPvqMEgBK6qrMxb CKjwoFKrI3riXcZiGA8pHKUn IKSgKgFiA76gHmFjdYT0dWLq uDCtukLrceZaAIGuUfM4NURw ZUY4BAHdPOMcoUXisZtqKZKe nT2rNJsjxXUxxF94FNKshv4c wm9yyKtxBEFqKBKtmDXgQQ7v UMPyAQEsc17caTtdFZNunvYi F4q4eZUbFT7fnbmaehEjpdPz DQ15AEQiAREyv72dxUqeNBFa ZXVyYVxwYXJcflxwYXIgVGhl IHJlbWFpbmluZyBwYXJlbmNo oO3oKFfiUKDkRGMkmrCsg0Sv zfa5NLBbqBPda6ZdcNJ2jAHm ZTFtA4Zkt06nIKqxSCBfASKe ePphRRg0WDLmsbMdh7GwzOe9 pEYwRbCiC4Hap9JppWgpkK4n ytYrfAPcZMFtBEYqq7DoWkij CFQdwBXwCOaghuTeb5WrNhel zA8yFSTkdYS9IXXnFTYeMCyy EAGxlQCeTIVgA3Oqd90tO91g LQqzzpxbVFDoWWMlXWL4EUQm dGlyZSBtYXNzIHRvIHBsZXVy EIyuOCYbLHMpGZW2OBGatYEz r3AzwFM6rOLkOE7rFJElLDLx HBQuCaXvdEU3xiGrEVEwHADe i61eqQiyKMINDvvlZzUsshSr WT66AMQmbyXla4Nnv6Nis38b JMPxYCTeq5HboYfgfIMvhHBs ISqnl8dkdiSaeIZgYLZ1McAq VFFxUXIwu4UvYxdxxq5mbKYj aYzyWLFSRIgtL6Aqt76jPHAf NHSoq2GlgDgukGKzhACgvANf j5Eta7qrNHEzQVctYyIsPdMk Y74jxJYjhE65VD7hLMWdTOtl RXJoY6CuBIYwNDL9RLJry5Ha d3LpsHFvOW3uhCdrSCbomFNu N8piZNAhOQ6ch9JtFXPzQUAa F7HwqCwlCZVVFIS7YWQsv3Eo u8HjuZGdTM6poDpiCUmevCTj F7ttZEVbXB4pAZGjBWahDS7d ZmFjZVxwYXIgRDEyOiBBcmVh RL0zRCKjCKXjINolX04jW5Wz dGlvblxwYXIgRDEzLUQgMTQg IzJ1adapgq1ylrKmWJMndkZf Q0f5qNUevVMfRTHpurFUnLTx o6RpSYtaEMKaOCMTMKRbNVDT NKrPK9FLBGFkr8qapBgue8Va yTFdXP29GYNaqALxCYW2KT2b fVxwYXJ9 MICROSCOPIC g2odhDFkTPQiwNX6GnWfFDOu DESCRIPTION (test j7esn8PyuYIvmEJgBVaypKSs code = 3371) mxGrif38rKI0mW47SJ8hNVKn PhF8WXJaphZ4Bky9ILOpVLQn dNAeI790d4iud5ydfpWiaDY2 nNsvOFMoamzeNxP4JWlaXCEl dlagTOo2FOybYANxyFK5KQDm vADcL6LbJLLvJK2type3PNM4 INswZRUsGwC4YYPeoMSpJOEs zVxrQUzty891BXB4YtFrXBYp ytGgnHbuiH0sXmQjLVJTFVDt y4RkBXPiPEXdvvudKSFbSUHr cn0= [facility] [id number] 08:58:34 Test Item Value Reference Range Interpretation Comments Case Report (test Surgical Pathology code = 104) Report Case: [id number] Authorizing Provider: Ernie Washington MD Collected: 07/15/2022 09:20 AM Ordering Location: [facility] Received: 07/15/2022 11:36 AM PERIOPERATIVE SERVICES Pathologist: Willian Restrepo MD Specimens: A) - Lymph Node, Pulmonary Ligament, Station 9, station 9 B) - Lymph Node, Interlobar, Right, Station 11R, station 11 C) - Lymph Node, Hilar, Right, Station 10R, station 10 D) - Lung, Right Upper Lobe, anterior lobe segment ADDENDUM 2 (test code a3pdaEVpSMXbvZD8NoVfIGFx = 3382) s0mws2NvsYJybSZoEKyscGXw hkHpfa61rOO5sL57CY7yZFCh WiD3GSHdpgV1Fth0KSKzGLUh qJKvC908z1cwf2wbecUexBH3 lHagBLRhscsfEkH7ZTlrOSOq wmixBRe6BTzzNRTdvRA4ZRRx dEOwC0QvQFEvSO8mogo2VZU4 FQgkGAWvSuO7WMZvjTAzBCCx qIhkFCmgu108LFF7YlUeAEJh enIsgTmhzJ3sPrFfEYNYuMcc VGGpGQWqQXNbULdlQZVbbD5o NUcey0AmIOA9sxVsVIGquuVu fvAkzPl7chLnMkEFL1LAPR81 vBA0oH3vPFDbt5BbrncjlAZo Br9kyMZyFGL8PO4vw8qzcz7d pTWrJRteVm3nSWIvfbuunq1r gUIoUOJmuhQPNTPIMFI9DKwl YXIgRUdGUiBNVVRBVElPTjog Ly4XQASGTGNZNPIVJEOzpidm YXIgUGxlYXNlIHNlZSBhdHRh C3yoDRGkH7HysrXpMNDkuX7o vKRse6VuMtJmwWpbteInEXSa aWxzLlxwYXJ9 ADDENDUM (test code = x8actVUeAUQseWK3EfJeLRMi 3381) c4jgy1JzdZEryCJfIHmopUYy gnYbzx92hXK7fC98HT7wLHJc MrF8URRvuhE3Qfb0ETRaCSYq zJRtD629g1ihp7obzpTcsBC2 dJusCBEdwptoKnW4LZmeEWZi eoymDBy2AVamEXTcsSS3NUGp zJEiZ3TsLTDoPC6ndhd3PZU6 IEakSRJsEwV3CURipJWcEQLr zBggSDbhe760GYZ9LmGmCGJg alPhuVxmfX1qXcSsLROPtAom HBMpZUFcEHLnBOraJRYhmQ2s REihk7FqAHM8mrAnOIElbzJm bBzzONWvu8VhvSIts2OvITGY GSDeaD8faS7gf9TjyF6raZIa Ya1wyQPpOFX2YM3of5daxy3o dYPvIMbdNn9uRWAckjeoev2j cGFyXHBhciBQREwtMSAoMjJD MmMepY4tYWr3MXRXKHCVW0OC ICIuoZGgFMHDGhTYP91HBXej OTAlXHBhciBJTlRFTlNJVFk6 IDIrXHBhclxwYXIgUGxlYXNl ACFtTuIjFIEkLSJ2nYXcjYSu HRAiGT8eHJFaxkXlj0S7ZZQc oyEnaNS6qHUqOLTfl9MeaDLf IFxwYXJ9 DIAGNOSIS (test code z2xexQPqHBXek0zhJHZgsEPx = 3220) ZzEwMzNcZnRuYmpcdWMxIHtc cnRmMVxlcGljOTYwMlxhbnNp OMKlzHNcH4FioufaAFtfQF9l SH6fhNnejQBpmGYaPLBvOnJf w7nwd277nNRoi6yjDTFXedio vAi2cYtzG72ym4Z5AtouF3je DXO4KPymgjXhxrYwPWBprQK4 TFmvmcJlDJWwO2ZwIK5hJJbj vMVwTNT1sYbxHIUgqgeiSwA1 OSglZBCinnznIUa9RYawGVWo fUQ4QDChfWYiA6AvZFVmMZ0f igc1CKX5CEtkUUCrYuF0MUWn wGYmHPAojSnyNGwar837PJU7 PvWdJDGfpsOmpYbkqC8jJcYs DYjsGsRfKJ5oSSdFWUicJk8C GWbfXEPDVR5VAICNBFeXY7EM KJ8CAPUWBTCVEO6VNPxsBVSE F0qUXJ2ONxeyNJPyW8VgHLQn ICBPTkUgQkVOSUdOIExZTVBI OV8XMDFqJFMhKSxhtEDnJNUv ggGmdZJgSOYsRZJCZrHABE9R KCLNB2XCHALPOgXTRfyOIfJN HLTJMAZWGQ0WUBBmFupuTIgE NIPPE866QSFsyppcXyNcOR2l FD7VXFIBGF4EZ81vAIxLGXld Lf3EJSGkYL9wHHriNZQjqIJr HXsdXbZopPCwJVLmMABOMZ3R ZQUCR7MPXYWNAUvEZeguK2SJ MKeWRfNrHELkCHORF9bGFZ2J EpfrCFWyI6CqKLQpNIUKJcUj KaGKILlLCBnHTVUMWH1WFSQg IXXdLPvlyEVlKXVargLuI6Tq XFFqnuZQXeJIKK1SXYRPCZwD YKLAMRJDVfENN1IWZEDKWqML GlaYUuNQG1AOLHRGP48FDxYi FGDMF04YIkGCZ2UNKTw8CRSi gkvsKfYtic5iQW5SVbPMP2fF YELZIWOBV6MNLnFTGd4ULBzg SM6TSoiVGPTVEwJLFzJHEFuM VEVEXHBhclx+KKBztokUA0KI KKXEKA1BJ4xMEtJYJJGLMqHX R4pMNHPkBADvRIvuVGICWuVJ ICgyMCUpXHBhclx+LSBcflRV IR2BBQ2ANZDTWjEBUCCiHACV OLMENrWZJqJICZCDJVNBNW0T MyRIU85igNIkMG9rSRc+Tk8g ZonSY7WDEKrqLCcEZSBHUKFN MnYUF9zIGrMXGzXJVSCWWFwQ SUVEXHBhclx+EBXjfu3YXXuN PNAEY0TFR8GVWDZUKAfHLxAU DA6OEGdPRWzBVU4OMIGCYINi pDThBH6aEFf+KUZPHN0TCWaP WZhdPsUIRJVCOD1CYJ5FTcxG ToikRqVUULGSWuRbXe5JHX7D PNvMWaGSR6qkPERkTKANHCWQ O6WUFGpgEWDgCI6kBJUQCNXF SNduWFETSJBKA57FHYSlwdCo OKWgCOKSOBfOBHgoYHTYMj8G QVRPVVMgSFlQRVJQTEFTSUEg GH3gTDnIKKDUM7oZJj8QLsFa nMKjNE2rUOd+XPCHHJ8EE0dA JdWETEQBDL5PNiAwGZSxLhBE uZClBRpFGuJ7oAjpDYLzIVxl CDL2r3oveKXjPFPgvCNtYVMa MFxhbnNpXGRlZmxhbmcxMDMz FMM3dzGaVKCeUWuxOYZcIRqh Uf8edGDibIkoVkKfQQOwl3yu lxTDfezztRe0y8xwFXVdIpS9 cOVyFMhtZ2fgvmQqdFCxFJFa LBm1cD87ZPVsdA4hfXNhPBvp uzLzOmG4IBslJVJhRtE3PBXz vTYiIFVvA8qrGKCpCFswCVNg GHsfhOShXTO0kJwiy7H8eMBq cBBxxZtpLzWyCwQcLlQBp3Yv FDj6mWhcW0RtNGDqRdE4rVUj DAMrEDmjPJUuDDLeteX7aX41 MZeafxF2bVRpx3Oak68gg967 nH8vmCGpGQZ1CPArPRTlwZQh NGBqMMH9RXMhnEQeI9hwBJGq PL5hgzklSVoqGUrfOKSagXN4 VDNtvKRqD0IqKYKhAZgwBSTn cjp5YtLvMo6zjILtfJfdNNdy x6vnd5kpaCMrJip8XZAjYnTo NwdaGAsfx0Ffr7wmNDEvsp4n XEO2pBPfwBuvu6P6oGIzKMTl mIChGJUkCK8hsGBjOWIjuS3n cmxjXHBnYnJkcmhlYWRccGdi cyDwLj6xeZokLMI3KPfmF4wb nZ9eSdX5WFjfF8dbcB1eQBz6 LGpmIAAokNE6xlQ0FFRxvXPx K2EnpZ3eRWZpRD1vzej5x5bu GDC1FUddTZBhHoL6guZ1LNHa mPKrKFVgfZssAXlkz331HRT9 EhWzHFIdc6ReK0EicKgzN55y iKetP05rETDlwXvuqJ9gkZia lC6wTtFgZhJkNDvahRzzPZ7q DWJlZ3qhoHLrGQYwXPZbI4nb IgPboQ0buFayJRhpylHwTRKo Zle5DEYdfBVcIDSjFsj6PXWy YLWjU38bzixhXAC8aF6si3yf s0SlJCcsDFJ9DXOds92wVEcv mxR6VFspWu1oWrFeFAS3YKsi YXJ9fQ== COMMENT (test code = j8kpoBGeBOSgiVO1GrPzFGWe 3359) e6nwg5HdoUSktLMiKRcmcKMb vyTiif03fDK3eQ91LB7rMRHb TdY9GVIwvrB2Vat2WMBjYGQc tDKfS346d6btg9pmmbAbxVB6 xAbcNDIyrjysJbU2PBchYAXi olqiZFh0SVtsLDBjfYW1OTKd pPIkL1QwDBUfEB5bput2KPW6 FOqbUJHtPcQ0XXAjxJBpGDOe aOepMUcbg146SJO7GuGsMGZu eoIpdRuaiS3rIaEoHUIXtC4r JJLyXGYme3T6WLc1MRTfqcZM pX3bvderJRSaaXQrJS7qoi0y wUikXFD9AMDwmmioVDNmVBSn a8Dcw6wcfLOzYXLwXY10SDZv PL1qb2lhpc7beUQrFPBhojQf tV9cNKBxTNWstTTupOwqZa9z GqVmjWq0bjZ2fBwfFWFrFPXr iL2dgXJxJTibRTGrUTSfUPZq ZHVtLiBccGFyfQ== SYNOPTIC REPORT (test LUNGLUNG: RESECTION - code = 5765) All Dxmywwalp[employer]tm Edition - Protocol posted: 04/09/2022 SPECIMEN Procedure: Segmentectomy Specimen Laterality: Right TUMOR Tumor Focality: Single focus Tumor Site: Upper lobe of lung Tumor Size: Total Tumor Size (size of entire tumor): Greatest Dimension (Centimeters): 1 cm Additional Dimension (Centimeters): 1 cm Additional Dimension (Centimeters): 1 cm Histologic Type: Invasive solid adenocarcinoma Histologic Patterns Present: Acinar: 20 Histologic Patterns Present: Solid: 80 Histologic Grade: G3, poorly differentiated Visceral Pleura Invasion: Not identified Direct Invasion of Adjacent Structures: Not identified Treatment Effect: No known presurgical therapy Lymphovascular Invasion: Not identified MARGINS Margin Status for Invasive Carcinoma: All margins negative for invasive carcinoma Closest Margin(s) to Invasive Carcinoma: Parenchymal Distance from Invasive Carcinoma to Closest Margin: 2.8 cm Margin Status for Non-Invasive Tumor: Not applicable REGIONAL LYMPH NODES Lymph Node(s) from Prior Procedures: No known prior lymph node sampling performed Regional Lymph Node Status: : All regional lymph nodes negative for tumor Number of Lymph Nodes Examined: 3 Dusty Site(s) Examined: 9R: Pulmonary ligament Dusty Site(s) Examined: 10R: Hilar Dusty Site(s) Examined: 11R: Interlobar DISTANT METASTASIS PATHOLOGIC STAGE CLASSIFICATION (pTNM, AJCC 8th Edition) The suffix m (or a specific number) should only be used in the setting of multifocal ground-glass / lepidic nodules that histologically present as adenocarcinomas with prominent lepidic component or multifocal tumors of same histologic type that are too numerous for individual separate synoptic report and that are not better classified as intrapulmonary metastases (e.g. numerous carcinoid tumors). Multiple primary lung cancers showing different histologic type or different morphology based on comprehensive histologic subtyping are better staged as independent tumors without m suffix. pT Category: pT1a pN Category: pN0 ADDITIONAL FINDINGS Additional Findings: Atypical adenomatous hyperplasia CPT Code(s) (test n3nekCLuWVBipLF4LxCvVRJv code = 3357) r1wym6WduHRnuWWbPFnzsDQt jqOgru22kMM0zY52JA0dYLNg AjJ2IVNshhP7Ovr1XERcLWAo fOIlN655x0wip9rmyjIsvDY2 kCwpBTTixgbjVuH7ZLcdTEUb yhcoHJo2LUqxOSUfrHQ0XFMm qUBoP5ZqSXPeSY0brem4NPS3 BPufEKIyYdJ1EDQiyQVnZBNt rGxbATtqu753COP1PoCnDKKx cmQthCwjqS2zUjJtWIO7JZNd JCxxJVShOUjeYVDVA8cbOVY9 CLINICAL HISTORY e1ljwMTfTZOpgVZ2KcHdUOGg (test code = 3356) e9ipq3FhyLXpyVOaBXsknIVn nrVdmy99oJL7eZ31SH2aWEAu MlL3PDSyjrK5Iro3ICCwHDRr gAOhL500q4wlz8zrrcBkuNB7 oQxcGTUjrawvUvF3CNzlIIXi ltyxOOc7VKalFTWgsHV0RMPk rLPoJ7TeYJCdFX5zrsk4RYB6 XEkyYSHjHcT0ZCMmtUGeHACu bDnbEOnch387GJN8YhYxXDUa brSdaImsiL7nTxQqSNABGLSs f9AzdxHddz8wVZXtcRbqnTLe vM6gHXFrmi9= GROSS DESCRIPTION g5cfhIKeHVExlNO8KmUzWNTa (test code = c2myw6ZwkJIbgCChPTkxcXFp [id number]) feYaji61tKY7dB85QQ2rTRYg ZvY8QCFiyuA1Mos0YOJgFKDc aSJuW038w5zpp8yziuAkuJI3 YJRoJKOkK7PtVA4jODBtlXAl U08yuFOcEPI4LTGyBRSsbQRj ILEjOQR3OOLejWSjQ2xkIPXn LN9rliotRKlmYGjpUBHmtUT3 OFLqiTHzI9FgQZVxZCynEEMr cbn4BtDxXu8fdUTurEunTYus NKKfg8jiWAQbzBKxPUN0IUmr zQMlHBFeTKUiSVx1LOYlXBgn tDKiXO9uySwtYochqGnys5Ar dCBcXGlkIDUxMDAyIFxcZGIg G3OMXHNdZCFhEYHiINRzFYp1 NNjiH5CKVETlEZZdGpl8Nko6 CpL3DCo8OPVXZz5lTqQ4LBx8 XtB4WWC9QYGeIEpcpLJuBQjv ZmwgXFxmIEFyaWFsIFxcbmN9 WHYhHPbtZRNtJkCjQV2uYLjm wJzlKa6jGBkpJLDvoH0zSPM7 ZCcvG1FmPS34WCHGpLA6yB7r WFugTHCvsirbgwYzLWFbJ0Ag dmVkIGZyZXNoIGxhYmVsZWQg a9w1nFD2vSTeqAO0tQQfiSoa HpWfHY2arEWoSK0vCQaeQRfv ubUdx5VoQZ95cCYsrpXhpyEq PaG6AIJou73sCXZdtFEvARQo FoBeP15oCH01lDHhA084cTKy kSrkvRqhrv8lHMIeuOKtnGO2 CEVomH8ffV18eaIbtaSOTE28 WFTviBHqIPH1ZH0jXCErcnrn NUKdQNBfXRI4WBaybM15oWSx XGZzMTZccGFyfXtcKlxlcGlj t3OhrZSgEQumTRHtVRGpSNhy OSKcT1UBAODwCJEaJHWbPGVa QQk9LQoqT7SJAXCxRAKiOwb4 BGF0WhO6KIa5SSHKQu0sHiE3 TPv1KzB2NSU5GQVjXGqhqPJj IFxcZmwgXFxmIEFyaWFsIFxc eaS5TIPlTrQiIs6lIUrfoKzk Hh9kQUepKN44NYUyu5Nfzyvc IhpvrCCoJUF9HGJut17lBIST LlxwYXJcZnMyMCBSZWNlaXZl ZCBmcmVzaCBsYWJlbGVkIHdp oTzluAgzXVYrkIzjhjKoK9J0 ysMgWG9vGEAvZHAaL5GpLRMg N63hOVMzoO0xHKYlNQ3qTQFk cBB3pO6bMQVbBqDigaElHJRc NZBfpJFgluDhusHfr8EjLnKh xV5buGZcb2HzCOH2Ug4wqTHb YYWbgoG3m2RxYIjzDULuAebv GOJsO0IcG6ZlilGhmLYmQBAd loAaj2xmSIN9NLNolCBoeKVg SlTgXgcsIMP0z1mwEBBoiTCn TQD9IEobfXQrDNZqJMMvCYom AyLXDvPnReN8SPB9AIS6YmH3 CBh2TMARVkByPrEnCcQsGuUm JcKgSLr1DNl5VOdJQwJ3HCi5 DRHiLGFnIHLkUSFzUVd2PAKj XFxmbCBcXGYgQXJpYWwgXFxu O52fBgXaNQSNKgYFpV7rjNKJ d1WzOZUHnIakjhhsMuauzZAz UBR4RQNhb32lCUZXJifdPHWi ZnMyMCBSZWNlaXZlZCBmcmVz aCBsYWJlbGVkIHdpdGggdGhl KWRghWrglpPuA1W2pmLdCN9u TLTlAOIhK9JwUGLnR46bTLXu rY4nOSNuUU2iWDEiaDL3hO7p IDEwIiBpcyBhIDAuNCBjbSBh niBjljNod1OuKvUizT2qjBTa t9EhKERgOOvuHQ42OMKdpU32 maYprQYtVBZtb7HiaJd9oUYi PWtuXQMrrU2tgS3qGdOkf7ua xWwhh6KikDXpRSpjXSMzgDZd WKrosM7hJeVry2lapZl4GLln soF8CPRfli55PVilDPIfO0Ep C1VsXYynKTG4LGQgUzVcWFCy DG6IWnUuTXQsIyVzQCWiTVh6 RDg1CX6ZQpWdAFGqSHJ2OKc4 IPGjAQw2ETwdBF5KHFDsZgk2 LekgYMK0HSO3WfXjAJAbCnTh VPZiIZctOaUDyvuwuGQaQK0w dRjbilTjBYCbKFq4bxqxICPs V8g3LOHnhAKwDUjuVnGeUXPn clxmczIwXGNmMSBSZWNlaXZl ZCBmcmVzaCBsYWJlbGVkIHdp dGggdGhlIHBhdGllbnQncyBu ZB9gHAOFUr1jNE2mYOl5ozhw KMTbV3z8TFGniODlJKclYjBo IGlzIGEgNTcgZywgMTUuNSB4 ORNfDMS3LSEkXSDdnWMgrV4p WSZlO94ogwItS6FjfNnfTQRo cGFyXHBhciBUaGUgcGxldXJh WSZhl1YmSFbeUBHzWGUsDZTv h8XxRCHlALFug87lYPRhIPYk CAvrLVAtEDNfTJ3aEWPbMcUt z8uxYMZhiqXpBE8jUQLxGNXr UxUlw83eHGX7sT6mSWH2GI9d DEBgcaZjn5FdgXhcAYJtCFLw bWVuLiAgVGhlIHJlbWFpbmlu FlAoqNH0fdImIYY1trCaC0Mk wLDrusKaAU5aas8nzwZnuvVj o08hq2AsVvm+XBTxNDQcpF3n PYakVKRvitbjjTt4GWAuY7Fi g90fKAJ7wrQmIOShQYilROQj IaTysDTvKuJdtYFnXfHmQ48z aWxsLWRlZmluZWQsIGdyYXkt hQZhCYKgmAOzVF9zi1Mrb0Sd kjOaPY45IMJiQCFaDRBxrKM7 faMxoAexrLZacvBtMvanQ36m ToBkaVD7tYQtwDHbRE0xyHvf UHsaoGVgQ5cdXcItRZ2yDXMb FLLiDnWtE85aXhJzwQK7mVWl eQItmbUogdJhHWIrVwC5POFj FWF1MKBoFGXluESwpUqqUVIh lE0jWAvzwQRdmZ90EIEvcz0o nt3atUvlWTMrODGyuETwPW6u KRGdRKQjx14uzEgmUHKoggFz B3a7iHPvMM9hpidudpUwdkQm ZQ63VVXxVHExw83zhLwsAUDx ZXVyYVxwYXJcflxwYXIgVGhl IHJlbWFpbmluZyBwYXJlbmNo cQ0iRAivHNSqYAEjunVps6Ed ead6NXYkxBRyq5YsyQU5oMNu UENfW1Chq60fYMnmBBKlGCCc lLrfIXx0MBZyiuTrw8LdgDo4 sQSuBdSsT7Dot0StvYlzjE0e onQmiSTzGMWjBRMct4XmDfmh WLUdhBEoIJtoyjYsu3AkKece fW7jEMMesNX0ZYIwLYZpVBwj FXIozAWuXLLyH2Rew24dW34t DRogajfuOQLdVURoSAX7GTCt dGlyZSBtYXNzIHRvIHBsZXVy VRmdCNXmVNVdUBM4AZVyjCLs o0KohIV0xVBsNF7aHVFrCXBy XOCmRgShwJY0wwNoFTPuVXOt w74vtAidWXDUJxdbRfRslwBx AH84DQWnaaEcb1Loe7Ltf32e MGTdRZUbf3HgkSdrgLNcnKVl SPgic5odboCwaJCnJRN6LmTb SRQuLQQrk5HfQjxoyh9rkRUs eCemEOOGEIckR9Poa97zBHLj DLAme9QgfPzumHRwvXCxaKDa l5Few2akHZOgNPooLtAkGmQu U56ktWEwtU73SJ4aRDPpYCpy PDEtH8LsWMAkAXJ1UZKud6Pf f2UxqWZrVB9rnFcpUDumuQZl J7sgQZAhEO1qr8SnYGHmKNOp X4SjaKytVWZKTLP8GBQfh8Mj d7WktAOjWF2baFchDXnegIMw S8ooYMHiLG6zJHRnITilBB4i ZmFjZVxwYXIgRDEyOiBBcmVh ZY1qDKUjMJSaVHzcL42pA2An dGlvblxwYXIgRDEzLUQgMTQg WdK2akmzld9zjdGbUBZgxuIs S3b9vGScmGOqWQPaztXZmBKo o0ZeYAhnVZOvUIRWZPAiEWST LJxRX0SBUNFtf6qyaOcku6Xn dDSePW69VOStsHFiLAP0VT1b fVxwYXJ9 MICROSCOPIC w6txgKPdXDVrgDV2GvNdSHKn DESCRIPTION (test t8ffk2IdkOBkjXOeOPcsbXDx code = 3371) pkLydr39zKG3uC82YG6lJRDv YgA6AMJsksZ1Fij5VLFvNAMj kLYrS807a8wra3uajlKpxVQ2 yFcmWJHnmqvcJhO8VVqsTOJp fezaXLc2PErwQEShbRZ2NQYo gPAsO9FwEJRbCJ3gfeb7UGA8 AJnaGGWxFuB8LBHeuAZbYUQd iUzwMDmpi738HPE6QsQyGTPw vaHmeBolgB8tSuNnJLMOYXBa w5IwPPDyQDNaxjvgODTdMNCw cn0= [facility] Beach[facility] [id number] 08:58:34 Test Item Value Reference Range Interpretation Comments Case Report (test Surgical Pathology code = 104) Report Case: [id number] Authorizing Provider: Ernie Washington MD Collected: 07/15/2022 09:20 AM Ordering Location: [facility] Received: 07/15/2022 11:36 AM PERIOPERATIVE SERVICES Pathologist: Willian Restrepo MD Specimens: A) - Lymph Node, Pulmonary Ligament, Station 9, station 9 B) - Lymph Node, Interlobar, Right, Station 11R, station 11 C) - Lymph Node, Hilar, Right, Station 10R, station 10 D) - Lung, Right Upper Lobe, anterior lobe segment ADDENDUM 2 (test code k3byiHHlKSOuzIB7CtLeQPQr = 3382) r5mcu9CyyRNgaBMmWAdksKCq ocRjmq13uGI4cX93XG3vBBRw FiS2FTSoyeD2Ewt7UWGnDWGl oWFjE715k2vdo9rktpAltAM2 sPqfFLIblbtoBfZ2MDaoYEEe nuozDIe8GHlwOZBlbON4ZIGi sUHfX2NcGZEiQG8vdxz2HPQ6 UGwePUIxJxU3KOMjbXAsSFCp lQinEWwjs162KWW4JeLsEPCk xtCizFkiqJ3kRsIeMZOPxEqx GAVcALPxPRTrZJjoUOXesL3m JQmvv8QyRIK6kySiWBBvmuOe yhTrtGc1qnJiEnYNK5OKGQ35 pCC5jW4xEKVpn0FxjrqwrXAh Te9xyXXaPIX4FX2lo3ibnx5w gMJoFHdaLk7pRKJqxqiigz7z gUJrCBFrnhAWUCBAZUV2FLzo YXIgRUdGUiBNVVRBVElPTjog St4BKYFEOPHTQQYGWEWvctwu YXIgUGxlYXNlIHNlZSBhdHRh U3opKGOoZ6VzwcBwQKXlrS0u tAFgt0AcQgVmfKdfyfAmYHOq aWxzLlxwYXJ9 ADDENDUM (test code = g3oahUSuSWTjpKA0PrUaSXZg 3381) k2uxb8WrsAYpmGKlQJtkqIOc vsXdak12yHL2qE70YD1fXRFr YsT9UOPcbnV1Etc9RFTaFPSq hTLmC795b0rkk8auelUwjKF8 sHsrYIBhitygBdF8RNceSNSp gjdnLVx4MJmsVRSmgXI7FIZz fPFoU3GkCCZsSV3orzi7WKP7 TMctSCDhMrD5SLBuaWFaPYFa wEhnPIyje527TMD2QqFtXUDk awYnhNpnvC9gXgXfETSTzQtp RXFmYJOtUETqASwsFTJzsR4t KYpla5YsAIW3ayYlDSQcjvRg xQdsPGKef0AixTRbp5QiFXSX QNAmmX7fxX1ks7QixW2clBXm Xy9zfZZaFNB1TG7ka8lfnh5w lLAiTHxoNg1uGWRmfaezyu1u cGFyXHBhciBQREwtMSAoMjJD GqOhyG6qLPs5IWKEXIGDI7WA VMOpuTGbGTAFGxGRH98WUNzt OTAlXHBhciBJTlRFTlNJVFk6 IDIrXHBhclxwYXIgUGxlYXNl ADLnFeTyFCAhDPN9vGMydPAj ARPyUS5hBSIjmuMld0F6ADWl tkHyvDB7xGOpZJEqc1VdxXTd IFxwYXJ9 DIAGNOSIS (test code k5bupVQjHGHyj7wwINIedOMw = 3220) ZzEwMzNcZnRuYmpcdWMxIHtc cnRmMVxlcGljOTYwMlxhbnNp UAQcwXFxD3FtgucdVMruOD9v VD7mlRcwoQFtmBXnSKOqHaPz c3iym518aBVza0xvODCNxcmo xAq2pGqhY40hz1Q4JbpdE9fo PGD7VUxtfiRookDkGJVhvOA2 KAznguAcDHHzX6BbEU3xRNds aKXlUXA3cHqxVZNqsxlxXmQ3 URozJUShvxmuHGe6CLzfRBSd wAO0WUZrvTHlQ4JqKZUuBU4v ann9PNZ8MUpdTGFyLbN7LGHx pGIgQVEcqWhmEBpnb984LLY1 TvJaNFCnlcAjsKqnxD6pNzFp XJbuDgIgTX0oXKmSFDsgKx4R WWsiAMWPGA8ZWZVLOLkSC1TE JX9NUMTRYGAXLD6XEGofPTFD V5hEBM3PFszuZFFpQ9NuMWBb ICBPTkUgQkVOSUdOIExZTVBI OS1VINIjWDSvQAfdxPBkEZAi nwHclJWcDWVsAPTVPeKOAV4L IUBLD6CPFIFFXjXMKkzJVjDG VQWLBJHVHT8ODMIgRounMZbH QLBJD107WOWbtdrjKsSpXI5j LZ7AKHRYGZ1QN00fOSxOCBry De6EGKRoTL4fZNkeSWCxaFPv MVnzQkJnmGVvLAFyWXFUKJ3I GHEMZ0XWXRBHYOrWGmxxX8PQ NJyXAdWpUZQiKAVDF0dWMZ0O JaarFFLlQ3DnLZUgEUDRBbWi GkKVMJzYDKwUFUNRZO4MVTMg OJFuIUbacLLbHGIyiiOyM7Mq DRJsriKJLeWPZB1UYZCQETuF BQIMNQVGBkYXJ7YQTZETSgPA HvlCHiJSW1AMUFEDD71KWvWf JGLQL52XTlCQZ8TONUc3BIDr jwgkHfPjkk2fUF0NVaOQP3zX AFJUGWMNF2OYEwTHOs3BDLns HL0BQgfZYDQDSlXUEeZKAHqN VEVEXHBhclx+WJGvvnfTG4QZ YRODWO5NY1sDIrWTMTRANaGR P7cPJTHuNHHvSCadIDCALxSQ ICgyMCUpXHBhclx+LSBcflRV BN8PEV2USQQMQqHRSTYlMIZZ UXHJTyNWXoFADQPMGPZQYS3R PpIVU36leCLrRR3oUEs+Tk8g BxfHP3THTAsuXEzKDGCEDCZM WvYIJ2gGZkQIPcHLCRXMQDtN SUVEXHBhclx+GJCdwd7YVCjR VLJJA4RFN1ASBZDEPDhDAyJR OL4PNVzSPPvZWC4OYKZILAWv eVXmMX4mQVr+RPGTND2KUCcT NEblHeFPPGNKWD9WLE5SNrpV TewsGyAIORMTLsVnXa0JFL9C BBeEXrSMZ8ajLYVeUTIXCFZI Z4BVZXboBVHuWF7tXRZNEYSE DXteQNCEHAHZX24RGMXhpiHw UFRjCTUIRMcKTMdyBFZIMj1S QVRPVVMgSFlQRVJQTEFTSUEg YC5fUErCRYGHD9tDZu7TReDg sWRuUV9iRPc+TWHRQO5YI5bY QaVJXTOGHZ4UEtUfJUSdBoEF pAYxDXsSIrF9pPedRGNdGSds CEQ3x9hbcLGsEUFsjRZqYXDp MFxhbnNpXGRlZmxhbmcxMDMz IGJ9azXnPIVfMQxxDEKyIGlg Mw4mpVZaiNmdDvTlRVCmj2hg qbKBcutfqEi5k5weKTUoGfO6 gFIbYCdqC5vzsiCxvWAcQWNc UEr6lP32DWJuoS0oqYMzFPnw cdBgLpF7JZkkNUOqBfD8WHGv cQBcJVIxU3pgCBRoLSfbFAZl RMqbjYGyYUZ9wJzwe8Y7yHSx fBRbdMfrGnFoMuFeAeDGm7So BKy8bJxrQ7GpJOFlYsW4kJAs HRHrNLelVJGiSEEtjkM7fD80 RBivlvO1xINio4Olh22vv398 dV5zwBEsMGS8EHEsGGFiwBVi DIKlUWI7NVWttWSoM5hqOSIy JI2rtcrlCTkgRLoyWOVcrWC7 XSUijICiU5SyMAJkOWdlKMIl frb7XvNqEj8mxYVgtVkuMGyy s0rtc7wwaEIhFpg1KOYmTnVu PldzEAtpb0Rmy5rfBJYfvv2a WJY5lWIfxRlri1U5jEKxMTWm hJAjBILhFJ8hhNJsQRUvjY6b cmxjXHBnYnJkcmhlYWRccGdi kmEqXc0hhMkfZQL7DYftN0aj nF5vIgA2OJqoA7muuL7bJPy6 TAedJTAloKZ3ouA2KRLivKKo I1NsqC3bFTDcEU6sapb5t3ps DBZ3QCwgWPCvEdH2wwE9QVEk tHAsPABvwHmfPKysw477HHY0 SmWcWCUiq3FoG1ObjJlaE28n eLrzL93aSRRcwTlzjT7vqAcj cF2vFmKiNxKaFPpnqGqnZT7a FJWiF5aavRUtPCMeWPGaL1mf QkZheI7gmDuqQAhjxoOoYLEf Oam2FKRfpNEhKPLcCer5VZHd ZRMfS40whmwsWOW4bS6ag5gw m3IhNEhgVHF7FIBpt26eDHvw nvL0NGuaBq2oScDzDUX1YXdl YXJ9fQ== COMMENT (test code = z9qolBQkTQCdpBN5TrTrOLZp 3359) n7prj9MbePAgvRUcZJtdqBDs woUimu20yQU9gB90EN7zJJTu SnR6IPYgweK6Rbt5MIRsPVDo wCNeE882p7jpo9mxtrWzcNJ8 eBcvLBGqirzcEnC7GXesWCEm hybgVDj5PNllLCOdqBP9WYDd rSAuN7BaMFJfII6cgto9ZSH6 IXshYAWeEcD1WLNrmFYrHJIe yRhcLNreu084XFM3AjQxXTHt icWyvUdlpV4aKaBwOXVDuO2c GJArYUEmt6G5VJa0EFGtvhRG pJ9qidpsVNLkaZHmWK5eao2b oMmjQWP1MDTjybkeUSQrZGPd o4Lxv2murYOvFFBbUY50BJPi DL1ub0xbgd0pyOTjMFEsqaVv hZ3qYVWbODTfkYLugXzmIm1x LyKyjZt7vaT9jMuxEXLsUWQz rM0jhBBiYAqiFNLvSSHfAOSb ZHVtLiBccGFyfQ== SYNOPTIC REPORT (test LUNGLUNG: RESECTION - code = 5765) All Imxfjzftb1rj Edition - Protocol posted: 04/09/2022 SPECIMEN Procedure: Segmentectomy Specimen Laterality: Right TUMOR Tumor Focality: Single focus Tumor Site: Upper lobe of lung Tumor Size: Total Tumor Size (size of entire tumor): Greatest Dimension (Centimeters): 1 cm Additional Dimension (Centimeters): 1 cm Additional Dimension (Centimeters): 1 cm Histologic Type: Invasive solid adenocarcinoma Histologic Patterns Present: Acinar: 20 Histologic Patterns Present: Solid: 80 Histologic Grade: G3, poorly differentiated Visceral Pleura Invasion: Not identified Direct Invasion of Adjacent Structures: Not identified Treatment Effect: No known presurgical therapy Lymphovascular Invasion: Not identified MARGINS Margin Status for Invasive Carcinoma: All margins negative for invasive carcinoma Closest Margin(s) to Invasive Carcinoma: Parenchymal Distance from Invasive Carcinoma to Closest Margin: 2.8 cm Margin Status for Non-Invasive Tumor: Not applicable REGIONAL LYMPH NODES Lymph Node(s) from Prior Procedures: No known prior lymph node sampling performed Regional Lymph Node Status: : All regional lymph nodes negative for tumor Number of Lymph Nodes Examined: 3 Dusty Site(s) Examined: 9R: Pulmonary ligament Dusty Site(s) Examined: 10R: Hilar Dusty Site(s) Examined: 11R: Interlobar DISTANT METASTASIS PATHOLOGIC STAGE CLASSIFICATION (pTNM, AJCC 8th Edition) The suffix m (or a specific number) should only be used in the setting of multifocal ground-glass / lepidic nodules that histologically present as adenocarcinomas with prominent lepidic component or multifocal tumors of same histologic type that are too numerous for individual separate synoptic report and that are not better classified as intrapulmonary metastases (e.g. numerous carcinoid tumors). Multiple primary lung cancers showing different histologic type or different morphology based on comprehensive histologic subtyping are better staged as independent tumors without m suffix. pT Category: pT1a pN Category: pN0 ADDITIONAL FINDINGS Additional Findings: Atypical adenomatous hyperplasia CPT Code(s) (test o1yleBYdTSHhgMX5LjIsRVQx code = 3357) u3sxu4UbmYIyaLPzDDprwRGo pqKnlm43lQF3cS91FY4hENLl KrW3QVRmmdW5Alg7AHMsKEXx dPBuV548s3vay5shmyJkjGU5 oEmwBOEvutdmYkC2PErqELSl rwkjTTk5YDiaHDFvbOT2LREo kAMzD4JcQXXrET1ackm0VEU5 NEbxQLUuMhR6TFKwiLZiSTIq zMbaLVmhf288KDM0OlLsALUi cgMdhEduwX3tSlAmJDR5UBVy SElwKOXaFXdfFXZVE9adHGC0 CLINICAL HISTORY e4fyyYZfKYBtqDB6KiWiJYPy (test code = 3356) x1ryb9GvsSPziSTwCVfzwOFp ghCwjv76qCN2bB75NV5eTRWk GgQ0PDIbfzE8Eki3KPKzZZQp nCCzV980m2drf8rednHklGW5 pUkbKDLjifgoJlM8TAhaUFWo icltFZs9FFnfCQNufBY5LJDo oXOjE5IzQPEzUH7aoxo7IVZ7 KTksTCSoCgW1PUNqpMPxBSWp wIimQTrhe193GSA7DgNtKWEl wfVdtDhadF9xAiPdFBUCPXRo h7BkliGzjp0xYOGkgOouqWDf dY4iVEYatd3= GROSS DESCRIPTION q1avuHBjJPEurEO8CxQuRSAj (test code = s8wsh7QrzDDdvPJqBOyzmWIf [id number]) pgPxxm19rZK0rE70NO1kQLZz AhV6KYLjreC9Lnn5LNRiBNNp bUIfP874z1iqj3wlkpBlaBM3 UOLeIUCrH6CmCG7uMDTvxUHc M38zuTAyARC8UPNmQXNuzBZe VWIrQOX8FNUqqNUeF5nvWOTg DG2zcwbsDIvnLUymZTGhiSY2 JJCdiNOcC8QoOHHzFUczEIQw lpr2DfVbIy9riGLeaJghCNya UQTxu7ytXWAssEKdIML1SNzu xBKlDRCmBARbFSa2JATyCHgd oLInZX1stToaDdpjcDkix7Hu dCBcXGlkIDUxMDAyIFxcZGIg W9MWGQHjBVBdTDJdDYGnNUf2 RJnaW9ZJKBRjVDOhXut0Tnv5 SuY3UAt7RXYWLa0aWwP4CHo4 WdH8QZP7APDrFBcggJCrAZov ZmwgXFxmIEFyaWFsIFxcbmN9 CPXnWWlnTQHeHuVgNO9mZItk fYmeVx8zHIquXEIyaE7uPZL4 YCzrU2SkJN82MFCUmBV4vV4b ZRzdKWQyjrkiooRiIAHvQ5Uh dmVkIGZyZXNoIGxhYmVsZWQg g7h6eNZ6rKXlrRW3aVZwgQvw ItKuBD8cnQInWC7hDAgvLBvp szChn3PgTI86cRHnkjUpenIn TlG3WRNzj02dLJWizOWeBUMw TiHwZ92iPZ17kKXiC809vUZb yJddfHkzvo0eBCHflKZbkIA6 EEZjmQ2abY24alWzthDYUX51 BCKmlEJpGQA6WJ6kCCFlkdwh YDKkCCHbUPH6MYytlQ97pVZl XGZzMTZccGFyfXtcKlxlcGlj q3OaiCRlFWlvFHSsNXAlPAsh CZZuR8LVSKZfCRGuTTQrCPMm VUw3CEekR2XULDAgDZYrJwx4 OWQ4UiY3RWq9OYEJWc9lNuO6 BBn6MgC5KIO4YIUjLYhufETi IFxcZmwgXFxmIEFyaWFsIFxc noX1BZJmGrDrNi0wVPxluDpv Gk5fPHhzUR95XGZtc7Zybcrt TtkejTHkEKU4OHQko22qFMGD LlxwYXJcZnMyMCBSZWNlaXZl ZCBmcmVzaCBsYWJlbGVkIHdp vYlewSosMDJzwYxzwvBdA4Q8 mjRtJT3mNZTbPQItQ9DyRZLb S63kAHKpbU8rMBGhJF6ePLWp rMB6zK7zYBUoDnAlpdHqQCMb BFTooGTwaeLbbrMbe4CrPgIx jD2euNTou9XrGKX5Ba0qgTNt ZFBnbpE5g4TyFFebKEGiKqoy NPSjI5UzB6KhmtCkvDWoLTUn hgFju7siOJP3XLQzwHXosPOt BcHlDonwFSB0f6beQEPieNDu UVP6OTsjuQShUXMpWWNfQYbt KgHTWtSfEiW8WUR2QHI8BgS2 GMo2DTQHUfAwLpApOrQjHuXv EbFzSAs2PZd5BCsGYrA4HFe9 WPPrZHYuLMPqBXJdWJm4HVSe XFxmbCBcXGYgQXJpYWwgXFxu B97bMxRiGKOZPtVWtN2mnTER s2MkWNLBcCdyavjwYihplYIk DYB8TZYbx06qHWVSWcdoSNJd ZnMyMCBSZWNlaXZlZCBmcmVz aCBsYWJlbGVkIHdpdGggdGhl NBKywDxbcwRfI2Z3uxDzZP5j NXAwWRKxB3OvINRoA97sTWKl hO4cXOUuQS6oZVQpqTX7xQ0z IDEwIiBpcyBhIDAuNCBjbSBh vgBvnbTjq3GcNuDopF0moJEq v4ZmJWFbUEciMR82LWOzxR42 maZrvEJfPTPyl2VahQr0ySZf PUogLGLuhJ0doK2hPpHtz9fh aYfbz6CedXYyWBqnMPYuzMWu ZRsvlK1xFdMto8tdjMt8ACjx zbF0SUMxkv74RIgbZWVyA1An B1IiFGqyLLQ5EMQqCiKoKRPb VH4YWtOxQMUrRwZuGWOuGHp3 PUb7AT6GJpRlLBKoNAD4BKn7 AQTgABt7KFbxYV8GHKMkCpy6 HaeyQAB9CQI1HbYdFMBjIwTt ZPWvBFwlWcQRpuuwiQGsFA2j iRffhnLlXFFyQZg2chhlUZFo L1r9TWJzrVMfXAgeTbQqBLPn clxmczIwXGNmMSBSZWNlaXZl ZCBmcmVzaCBsYWJlbGVkIHdp dGggdGhlIHBhdGllbnQncyBu CW3xMJWCEd8qAH2kIRj9cwqs WAAxA5z7PAJdtOLbMEoqTbOs IGlzIGEgNTcgZywgMTUuNSB4 WDStVNK7UGSmEGCbwNMigB4m MIAwO44udrVqJ3XtwWisNXVr cGFyXHBhciBUaGUgcGxldXJh DXVkv1DtWXubYHMxYLSqXZFa z6KmURPlRHHjt79sJPTvGYBv VUrzFPJyGXWrWG3gVBUbJcHz c7nlYMWsuhVaUL2rTSQmWHQa VyEgx46rYLZ4jQ2uEHT7FX3d OWVzczJlv4LitQmdLFNqSTHt bWVuLiAgVGhlIHJlbWFpbmlu UaYumGA3vfYcGAH7jePyQ2Fi bVWbnhEsIN0ebb4entGrirFm a88ch4WzSke+DGExODKboR3g DUvbBVVfsmbfzSl4QOOcV7Ri k16nTQH1axKuJQCoOOanJNXn JhIplJHlLmXwqGKfCzAbQ69z aWxsLWRlZmluZWQsIGdyYXkt jRBlORNopDCaDF6jd7Vdt7Ic vcHkUT07HMAcYETwKYFfhQY5 scLwqJpsvYUmvsGyLrtxU00s GjWqlHQ5hQEfyQWuSY9ooEvd ZEyvjNFaW4ujOpUvZC0vCEQl OPVoEkKvG47iAaWtcDM0fCNx uUMcsiFtqyWtITByPsD3KUMo PXB1UWAvMNSktMEelPtoMADt xR7uUDttqCGjrB28ICAnjy6i uw7qlOfuBXJbZXUtlNNfOU3d FPVgZPRov57lqSvfNKEpugEw Y9q0mFLaAQ3gjgjegpFblxSd XD89KNEeLJScj14ohXmnNFAz ZXVyYVxwYXJcflxwYXIgVGhl IHJlbWFpbmluZyBwYXJlbmNo rK5pAYhoDNLsEYWrbqKai5Tf krt2MRJzzUGwv9TydRX4dFUh ORTdH1Syp05fUJehKJElWXJu dVdvJJe0OORcdmDje4ZlvXq0 lXMwHuVrI6Csp0ZllHmiwR3a xoOgdHJxQZNdCKNin3KpZxep UBDtwGTkLNcmhcDtp6CqAmrw vQ1mGYRunSE0OYKzUFJqSCtf RVDkeAMjYXNjW1Dfu04zW25z GDlqaoqkDDRbGWUvWZC0BMSf dGlyZSBtYXNzIHRvIHBsZXVy EYdtFAYlZKBfDDO6DUYopDUc r2LwcKE4vIMsIG3jCWEeHAOe ZIGfImQuwHR4ptKoDZCuFRPt f79fzTikRQAZJlooMgQmfyMv FC25TZDtlmHav2Zaw8Ong48j NOYxNSXzi3JcsLvtnPVpgYBs EXvzo7nrqpNkdGXuWMC3OxRn FHIzPAIxj0UfKeuijf5yeKHl gTqnMUCGJVqgM9Jbx33xCIMe KIKmq0InrMpvtBPhwHOthUNx j8Rxy5twXYXpEIrwEdCvMeXa K09juQRvwZ07WU2vGKTmMRpz RCQuC2OrMMUcGTY7FQUuf3Xt x5AbnGFxBX0edThnDDmzkRTy B1ywKPVyER7qp5MoCSRmOIRs K9EhoVklRSPNWXO3QUIsy3Fb e2SzbMDgKH6foWngIFcnrYXd G1rsWPYuJI9gHDMwGHqdIC1b ZmFjZVxwYXIgRDEyOiBBcmVh PF7nTCWmQWQaDFnuI02cV2Jv dGlvblxwYXIgRDEzLUQgMTQg YxI9wacuuc0mypKdXCOvyqGa C9b3sFDptZBtXQDfpjJRhXKf g2StMRrjWGHeMPJSRFScBKWU IBoDF5BUSMGkj2mvzUcrh5Tl qREwQU98ROGmoDJtVYQ0XT2d fVxwYXJ9 MICROSCOPIC m1gquQStGUVxgAY1YcJlEZKd DESCRIPTION (test n2brl0EdyJQszMUiEWtbzJQt code = 3371) jcEhry49uIJ3gD17RG3tXFZj RlO5URHcyhJ3Jxc1HTJnMRQc jRTsG052j0yjk3elsvXxqBG0 zIjkEXDzbtphGpA0NBhlKEIr axlvYSz3CFttHBPekVO5JCQr nBEuC7RuLMQpGN3rsmm0NQV3 GOtjHUWbPnT4AUXdaJDuRAIz nEdxQOtqs806IHD8HcCcGCFr hwFccOwzlY6nTxJgMWUYDFEb t7JjRCQoAECikkplFWIlPRMv cn0= [facility] [id number] 08:58:34Surgical Pathology Report Case: [id number] Authorizing Provider: Ernie Washington MD Collected: 07/15/2022 09:20 AM Ordering Location: [facility] Received: 07/15/2022 11:36 AM PERIOPERATIVE SERVICES Pathologist: Willian Restrepo MD Specimens: A) - Lymph Node, Pulmonary Ligament, Station 9, station 9 B) - Lymph Node, Interlobar, Right, Station 11R, station 11 C) - Lymph Node, Hilar, Right, St ation 10R, station 10 D) - Lung, Right Upper Lobe, anterior lobe segment This addendum is being issued to report results of EGFR mutation testing performed at [facility].RESULT: EGFR MUTATION: NOT DETECTEDPlease see attached scanned report for further details.Addendum electronically signed by Willian Restrepo MD on 08/27/2022 at 8:58 AMThis addendum is being issued to report the results of PDL-1 immunostain performed at [facility].PDL-1 (22C3 clone): EXPRESSED TPS SCORE: 90%INTENSITY: 2+Please refer to attached scanned report for further results. Addendum electronically signed by Willian Restrepo MD on 08/22/2022 at 10:31 AMA. LYMPH NODE, PULMONARY LIGAMENT, STATION 9, EXCISION: - ONE BENIGN LYMPH NODE (0/1)B. LYMPH NODE, INTERLOBAR, STATION 11R, EXCISION: - ONE BENIGN LYMPH NODE (0/1)C. LYMPH NODE, HILAR, STATION 10R, EXCISION: - ONE BENIGN LYMPH NODE (0/1)D. LUNG, RIGHT UPPER LOBE, ANTERIOR LOBE SEGMENT, SEGMENTECTOMY: - INVASIVE ADENOCARCINOMA, POORLY DIFFERENTIATED - HISTOPATHOLOGIC TYPE: SOLID (80%), ACINAR (20%) - TUMOR MEASURES 1.0 CM IN GREATEST DIMENSION - NO VISCERAL PLEURAL INVASION IS IDENTIFIED - NO LYMPHOVASCULAR INVASION IS IDENTIFIED - PARENCHYMAL RESECTION MARGIN, NEGATIVE FOR MALIGNANCY (2.8 CM AWAY) - PLEURAL ADHESIONS - ATYPICAL ADENOMATOUS HYPERPLASIA IN THE BACKGROUND - PATHOLOGIC STAGING: gS8pP7Am (AJCC 8th ed) Signing Pathologist Direct Phone Line: [phone] signed by Willian Restrepo MD on 07/17/2022 at 12:25 PMBiomarker study:Tumor: M1Dgintp: [id number] will be sent to [facility] for biomarker testing. Results will be reported in an addendum. LUNGLUNG: RESECTION - All Nniapiqta9qb Edition - Protocol posted: 04/09/2022PECIMEN Procedure: Segmentectomy Specimen Laterality: Right TUMOR Tumor Focality: Single focus Tumor Site: Upper lobe of lung Tumor Size: Total Tumor Size (size of entire tumor): Greatest Dimension (Centimeters): 1 cm Additional Dimension (Centimeters): 1 cm Additional Dimension (Centimeters): 1 cm Histologic Type: Invasive solid adenocarcinoma Histologic Patterns Present: Acinar: 20 Histologic Patterns Present: Solid: 80 Histologic Grade: G3, poorly differentiated Visceral Pleura Invasion: Not identified Direct Invasion of Adjacent Structures: Not identified Treatment Effect: No known presurgical therapy Lymphovascular Invasion: Not identified MARGINS Margin Status for Invasive Carcinoma: All margins negative for invasive carcinoma Closest Margin(s) to Invasive Carcinoma: Parenchymal Distance from Invasive Carcinoma to Closest Margin: 2.8 cm Margin Status for Non-Invasive Tumor: Not applicable REGIONAL LYMPH NODES Lymph Node(s) from Prior Procedures: No known prior lymph node sampling performed Regional Lymph Node Status: : All regional lymph nodes negative for tumor Number of Lymph Nodes Examined: 3 Dusty Site(s) Examined: 9R: Pulmonary ligament Dusty Site(s) Examined: 10R: Hilar Dusty Site(s) Examined: 11R: Interlobar DISTANT METASTASISPATHOLOGIC STAGE CLASSIFICATION (pTNM, AJCC 8th Edition) The suffix m (or a specific number) should only be used in the setting of multifocal ground-glass / lepidic nodules that histologically present as adenocarcinomas with prominent lepidic component or multifocal tumors of same histologic type that are too numerous for individual separate synoptic report and that are not better classified as intrapulmonary metastases (e.g. numerous carcinoid tumors). Multiple primary lung cancers showing different histologic type or different morphology based on comprehensive histologic subtyping are better staged as independent tumors without m suffix. pT Category: pT1a pN Category: pN0 ADDITIONAL FINDINGS Additional Findings: Atypical adenomatous hyperplasia [id number] right lungA. Lymph Node, Pulmonary Ligament, Station 9.Received freshlabeled with the patient's name, medical record number and "station 9" is a 0.5 cm anthracotic lymphnode submitted in toto in A1.B. Lymph Node, Interlobar, Right, Station 11R.Received fresh labeled with the patient's name, medical record number and "station 11" is a 0.4 cm anthracotic lymph node submitted in toto in B1.C. Lymph Node, Hilar, Right, Station 10R.Received fresh labeled with the patient's name, medical record number and "station 10" is a 0.4 cm anthracotic lymph node fragmented into pieces submitted in toto in C1.D. Lung, Right Upper Lobe.Received fresh labeled with the patient's name,MRN and lung, right upper lobe" is a 57 g, 15.5 x 5.8 x 1.8 cm lung segmentectomy. The pleura displays 2 areas of adhesions, 2 small areas of fibrosis, and an area of congestion at one end of the specimen. The remaining pleural surface is red-maroon and smooth. The lung is serially sectioned to reveala 1.0 x 1.0 x 1.0 cm ill-defined, pruitt-alcala, firm mass subjacent to the pleura that is 2.8 cm from the parenchymal margin. Located 3.1 cm from the mass is a 0.2 x 0.1 x 0.1 cm ill-defined, yellow firm no dule that is 1.3 cm from the parenchymal margin and 0.4 cm from the pleura The remaining parenchyma is red and spongy senior patient account representative sections (mass entirely) are submitted. Gross photographs are taken.Ink code:Blue: pleuraSection code: D1-D3: Entire mass to pleuraD4-D5: Inside Wirer of 1 area of pleura adhesionD6: Inside Wirer of second area of pleural adhesionsD7: 1 area of fibrosisD8: Second area of pleural fibrosisD9 : 0.2 cm yellow hytinnX91 : closest parenchymal margin to mass, en faceD11: Closest parenchymal margin to nodule, en faceD12: Area of pleural lvwshphcbhC24-Z 14 : uninvolved pare LIBORIO Thurman, PA ([facility])cmPerformed.RAD, CHEST, 1 VIEW, NON DEPT 2022-07-18 09:02:00Reason for exam:->post-opShould this be performed at the bedside?->YesSAN [facility] : 1945 Sex: FFINAL REPORT RAD, CHEST, 1 VIEW, NON DEPT INDICATION: post-op COMPARISON: Priorday's exam TECHNIQUE: Portable frontal view of the chest. FINDINGS: Support Lines and Devices: Stable. Lungs and pleura: Unchanged airspace and pleural opacities. No pneumothorax identified. Heart and m ediastinum: Stable contours. Stable surgical changes. Additional findings: Subjacent emphysema in the right chest wall. IMPRESSION: 1.No significant change from prior exam.2. Postoperative changes withscarring in the right lung. Signed: Fernanda Nelson MDReport Verified Date/Time: 07/18/2022 09:02:01 Reading Location: [address] Reading Room [id number] 07:47:44 Test Item Value Reference Range Interpretation Comments MAGNESIUM (BEAKER) (test code = 2.2 mg/dL 1.6-2.6 627) [employer]fuels Processing Technician ID - PIAYA LBASIC METABOLIC [id number] 07:47:43 Test Item Value Reference Range Interpretation Comments SODIUM (BEAKER) 143 meq/L 136-145 (test code = 381) POTASSIUM 3.4 meq/L 3.5-5.1 L (BEAKER) (test code = 379) CHLORIDE (BEAKER) 110 meq/L 98-107 H (test code = 382) CO2 (BEAKER) 27 meq/L 22-29 (test code = 355) BLOOD UREA 14 mg/dL 7-21 NITROGEN (BEAKER) (test code = 354) CREATININE 0.68 mg/dL 0.57-1.25 (BEAKER) (test code = 358) GLUCOSE RANDOM 94 mg/dL 70-105 (BEAKER) (test code = 652) CALCIUM (BEAKER) 8.2 mg/dL 8.4-10.2 L (test code = 697) EGFR (BEAKER) 89 Interpretatio n of eGFR (test code = mL/min/1.73 values Stage De scription 1092) sq m Result G1 Cheryl l or high >=90 G2 Mildly decreased 60-89 G3a Mildl y to moderately 45-5 9 G3b Moderately to s everely 30-44 G4 Severl y decreased 15-29 G5 Kidney failure <15Reported eGF R is based on the CKD-EPI 2020 equation that d oes not use a race coefficientEsti mated GFR is not as accur ate as Creatinine Abbey rosangela in predicting glom erular filtration rate . Estimated GFR is not appl icable for dialysis patien ts [employer] Technician ID - PIAYA LCBC W/PLT COUNT & AUTO [id number] 06:24:41 Test Item Value Reference Range Interpretation Comments WHITE BLOOD CELL COUNT (BEAKER) 7.6 K/ L 3.5-10.5 (test code = 775) RED BLOOD CELL COUNT (BEAKER) 3.29 M/ L 3.93-5.22 L (test code = 761) HEMOGLOBIN (BEAKER) (test code = 10.0 GM/DL 11.2-15.7 L 410) HEMATOCRIT (BEAKER) (test code = 32.1 % 34.1-44.9 L 411) MEAN CORPUSCULAR VOLUME (BEAKER) 97.6 fL 79.4-94.8 H (test code = 753) MEAN CORPUSCULAR HEMOGLOBIN 30.4 pg 25.6-32.2 (BEAKER) (test code = 751) MEAN CORPUSCULAR HEMOGLOBIN CONC 31.2 GM/DL 32.2-35.5 L (BEAKER) (test code = 752) RED CELL DISTRIBUTION WIDTH 13.5 % 11.7-14.4 (BEAKER) (test code = 412) PLATELET COUNT (BEAKER) (test 158 K/CU MM 150-450 code = 756) MEAN PLATELET VOLUME (BEAKER) 12.1 fL 9.4-12.3 (test code = 754) NUCLEATED RED BLOOD CELLS 0 /100 WBC 0-0 (BEAKER) (test code = 413) NEUTROPHILS RELATIVE PERCENT 70 % (BEAKER) (test code = 429) LYMPHOCYTES RELATIVE PERCENT 10 % (BEAKER) (test code = 430) MONOCYTES RELATIVE PERCENT 15 % (BEAKER) (test code = 431) EOSINOPHILS RELATIVE PERCENT 4 % (BEAKER) (test code = 432) BASOPHILS RELATIVE PERCENT 0 % (BEAKER) (test code = 437) NEUTROPHILS ABSOLUTE COUNT 5.32 K/ L 1.56-6.13 (BEAKER) (test code = 670) LYMPHOCYTES ABSOLUTE COUNT 0.77 K/ L 1.18-3.74 L (BEAKER) (test code = 414) MONOCYTES ABSOLUTE COUNT (BEAKER) 1.13 K/ L 0.24-0.36 H (test code = 415) EOSINOPHILS ABSOLUTE COUNT 0.33 K/ L 0.04-0.36 (BEAKER) (test code = 416) BASOPHILS ABSOLUTE COUNT (BEAKER) 0.02 K/ L 0.01-0.08 (test code = 417) IMMATURE GRANULOCYTES-RELATIVE 0 % 0-1 PERCENT (BEAKER) (test code = 2801) Tissue [id number] 12:25:22 Test Item Value Reference Range Interpretation Comments Case Report (test Surgical Pathology code = 104) Report Case: [id number] Authorizing Provider: Ernie Washington MD Collected: 07/15/2022 09:20 AM Ordering Location: [facility] Received: 07/15/2022 11:36 AM PERIOPERATIVE SERVICES Pathologist: Willian Restrepo MD Specimens: A) - Lymph Node, Pulmonary Ligament, Station 9, station 9 B) - Lymph Node, Interlobar, Right, Station 11R, station 11 C) - Lymph Node, Hilar, Right, Station 10R, station 10 D) - Lung, Right Upper Lobe, anterior lobe segment DIAGNOSIS (test code u2nthACnQUXvg3nnPASgtMFt = 3220) ZzEwMzNcZnRuYmpcdWMxIHtc cnRmMVxlcGljOTYwMlxhbnNp MIJgdITmL2HnnbnfGDtmXI7q EF4lnNxxvIQtrWApICJhMfLo o4qjp941gIIzw7pqVSZDuzia aLl2fGxgJ49wx5D9StjsV4jz CEN2CGhigdJpsdBeTSPuuLE5 FEofiwFgYAFgN5NyZY4gFQle nRBbSDR7tSgrJKZveyawHwR2 PVfrWPBxhjbdLTp9YQrkBUOe aPT3KMNbzAJiY8CgFZZsCM1i tzb1WXW8BFmrPLOfIzM9QEEe tOQqWUPtrCduBZsbq377BQJ1 MuXtENDaauWqfEjgxF6tZmYx IQrqKxLqMT2xGAmYMCbdEr2W KFonWMHNSV0ZWLAPYHtHS1VL RQ1SUYRFBCYXBH9OHAevQRBM Z8uMSZ4WRmhpGAWcH1SyERGb ICBPTkUgQkVOSUdOIExZTVBI QY4ZWVEsUROvXGcrjHSnEPHa stMflXNjKQFnGXXFFtDMKI3L PWDZC6IBQNFJVzDVVlhNHoAJ PKSBBPKHFJ6VTLZpZltoGLaN QQMIX363LSVuskzoJoZhEJ4f XU7TRDUWUX7NF38uVAfAWTdz Vi1UDMRvDH8jRSkuAJHfnXCl RComAnOfgBIuQSNuOPUXSM8X DYTPB3TPDPXGNTiMOsggM8II FSdZKiJsDUFrLLKIF9kLBP4C PmveMZFyQ3FsYYXoJZFRBuQc WoWBSUjYMKkNWPKTNE4ARJVy NFRdFLryjNXeZSKbexDmY5Ay BTBrgqDRZeZFZF3WIAUCFWfD LISKLIGYYbPLN3UAXUQPXsVD KujPZuSXQ3ZLPDQPW47NVmTy GXOXX85OVsBXM2DTKLv8BFUi vpriCzPxvz6vBC8CRaZXM6xQ GHHVSDIZJ1WTUjYGMa3ZQLvq PT9WPfaQFKOPNlQBCzWYBEwL VEVEXHBhclx+TKXnmziJH7SK EZRFDP3BQ8eJXuFOISWCWoLB M3jIBBIiCAQeGZbzQEEREdBR ICgyMCUpXHBhclx+LSBcflRV XN9EAL6JBYVUBoCNHDQtCNWS YTADQdGOCeYWHIGKBGSUNK0S XnTIF13aqMXdWL1eAVl+Tk8g BvfRJ7HTTMvuJGaJBUMNIHHG VpJAP9gVXaBRFaSRUXLDFSfN SUVEXHBhclx+GZCmyk5BTDzT AOWTY7HMU7UCIWZXIRzZZsHG HX1MRIcKDDiBNO7KGVWASUUl uXNwQN6kSDu+SIBLPA2QMJqD KPgrSuVVMATFET3UUF8SMuuH DesvJuKHHLHBGcUqOa8DXF5Z AEsQLgTHG5poGSXySGYDVRKI Q6TAZWzmAEZoZU0mTPIHKTUC KRnxARUNFQGQN79EDQMcxfUm UDXwQJZDZMkUACinSNYMAr5R QVRPVVMgSFlQRVJQTEFTSUEg XG4oZAjGIMFZD6fJVa6FMpNo hXAeMV3jLVe+ESWAVN8VM7yW VmCUZJXRIB7BHmHrPJJwJoLS kAXwVDiMGwW8oOyaNNFfHAkw GNF3n0ywyRIgIPZduQFcRKAo MFxhbnNpXGRlZmxhbmcxMDMz SFE6eyCjUINvLEvrUXFjKAex Rt8xsZDtdKirAlTdDTUul0dy ucNKmjromUf8d8shRFEnDfP3 nQYuQLroB1mprrKnkTAeMMUk XTg7pE71MPLbuR6upYUrCPhy ciJgFtE8LDncIGZcXuU4NBEl aBHjICVuR9cmHHBwDNgnYDUf MZoyqOWoAWC7nVchp6S9pSXv jPUdfIzyKuWzKuJsGqKTg0La DYz7bHrqI1NlJYVaVjT6bCAq IPBuZHunNHWxIYEmlsP4iN43 PPfbxdV5oUIkz8Yox36xv446 bH2mcKUyMNI0HZGxZKDykUGd GUFhYEP4BFGswJYoC8ifZLXf VE4zpjifLRfsEAqlLJFmyMZ9 JHDnpVIpO5AoPECxWTzrSFEh bhi9YfIvTu4dcZGivOiyEIzh l7nzp7hzoMCjHct9AFUwSdVm CxchTCcvg0Tja7noTZFstb1j QPP2sGKitIhfl3Y5mYZvBORx mQEmMJHzOP0kgLYlGPHqtI0v cmxjXHBnYnJkcmhlYWRccGdi auQgJa0zkLcqDKS1KHkjM6ez eW6bIoV2FBbkZ7sgkB2uCRz5 ZSelUXQxyNQ0cjI3IGUfhCGs J7RepG4hXNKjTT1bxtd0b8xj TFT6VVkjINNmVoV2izZ5EXJn jOWlHUVnzYoiEYxny553AOZ6 LsXsBBLsm7AgG1ZhlPvfL92f bMnbM14hWYNizTnmzJ8ekHym xA4yYuYkRcRsCTpyeQznQB9k PMSiC7vgaBOjRQLzTWLmM2tl LmKplB1hpXgnKXcfaqHwJNVk Doc5HCIwiLKkIZIfFba9ZSOt FSGvU34itkekZTV9uT6dc1nj r0HnUErsGOZ7AJJet41nUVbt dxW9LWqkRi7sUzVkCMK3MQxd YXJ9fQ== COMMENT (test code = x3kogBXrLCGztKR3BhGjYLFy 3359) g6nia4HerJMseLJjYEewbCXl rtXxeg36cYU6iT31RD8eKHRi TjX1VUHofvR4Ybw4CXAtWEIe zSIwP911d5lom9vedbLdgLR0 gJtvMSWblcmhOuQ3ELprNCTn mvgbOHx2LYbmEAOhoEN4MXNj yHVtD0HpLEApZO2dygf7PHO6 ILyrLIJgIqK6DXAsxSUsUHJn wTosWWarh782MJM9FyGcELAg kzHtdIqxqX3iLvTyUHCPkO6x PSKfIUUwv6M7BVc3DHXprlOM iH1mjkrzHPWdpZVeVU9qez9l lCrzXVI4XGHozadzYWYrKLUs o8Tqz9ueeWDvPJFeED90VMUh TY6ct5ttmh5jdRGwUPZwwvMd zL6fOVJmJKUwgXEbxIrqKe7t HvKydRo1juH0eEanOUFrBXPz vT4zzHAwPAeeGCEfEGDvHGHw ZHVtLiBccGFyfQ== SYNOPTIC REPORT (test LUNGLUNG: RESECTION - code = 5765) All [id number] Edition - Protocol posted: 04/09/2022 SPECIMEN Procedure: Segmentectomy Specimen Laterality: Right TUMOR Tumor Focality: Single focus Tumor Site: Upper lobe of lung Tumor Size: Total Tumor Size (size of entire tumor): Greatest Dimension (Centimeters): 1 cm Additional Dimension (Centimeters): 1 cm Additional Dimension (Centimeters): 1 cm Histologic Type: Invasive solid adenocarcinoma Histologic Patterns Present: Acinar: 20 Histologic Patterns Present: Solid: 80 Histologic Grade: G3, poorly differentiated Visceral Pleura Invasion: Not identified Direct Invasion of Adjacent Structures: Not identified Treatment Effect: No known presurgical therapy Lymphovascular Invasion: Not identified MARGINS Margin Status for Invasive Carcinoma: All margins negative for invasive carcinoma Closest Margin(s) to Invasive Carcinoma: Parenchymal Distance from Invasive Carcinoma to Closest Margin: 2.8 cm Margin Status for Non-Invasive Tumor: Not applicable REGIONAL LYMPH NODES Lymph Node(s) from Prior Procedures: No known prior lymph node sampling performed Regional Lymph Node Status: : All regional lymph nodes negative for tumor Number of Lymph Nodes Examined: 3 Dusty Site(s) Examined: 9R: Pulmonary ligament Dusty Site(s) Examined: 10R: Hilar Dusty Site(s) Examined: 11R: Interlobar DISTANT METASTASIS PATHOLOGIC STAGE CLASSIFICATION (pTNM, AJCC 8th Edition) The suffix m (or a specific number) should only be used in the setting of multifocal ground-glass / lepidic nodules that histologically present as adenocarcinomas with prominent lepidic component or multifocal tumors of same histologic type that are too numerous for individual separate synoptic report and that are not better classified as intrapulmonary metastases (e.g. numerous carcinoid tumors). Multiple primary lung cancers showing different histologic type or different morphology based on comprehensive histologic subtyping are better staged as independent tumors without m suffix. pT Category: pT1a pN Category: pN0 ADDITIONAL FINDINGS Additional Findings: Atypical adenomatous hyperplasia CPT Code(s) (test b6ajdYJsDCBzsTF3XfBbXUJl code = 3357) w5wyn9QyuDXadKJuJVnfhRLg fcHffs53cQO4gL69ZD0zJYLb JvW9CNWkwcD3Cev8FAUvYJLg kSCfQ315n9hbv0zecgMpzKC3 qRrwPSRfnkxcOcK9HPacNOGg kjpdDQg3SFhwNETnxKF1NLJu aBJmP3EbSZJrID0cxvr7NCX3 ELykRXChKoD2VIGmvDSnOAFr nFugVXqyc052SDB6AfDrBKPs qkLcnLvilY6hRgDtTNR4WHPc VVnpCZRuCManSMRAS2hdPSZ7 CLINICAL HISTORY c2evoZToJNDcxID7GjNzPYXs (test code = 3356) g6txk8UntWPcrXGjBYcnjMCf heTfmn42iHP1eX76ZX1kQBJv HjD4REZylkB6Iwp5WTMeNJVk uFOaB534v2jqc1nxxuRpeDU2 fQsfRUXoxejgVbW9FKxlACDh inoeSAi2GSkaDUCywKF9YJSd oZLqY0KaVGGjWW9rsmx0FDP2 MFxuXZXmJiH5VJErrAVcWCIw nYqfTZlqh100SZR8GfIfICCh vhZysXsicX5bDbEyRLQKLALi e9ThgcOjnm8gGRWfcLqabIRy pB6lAHQzpr5= GROSS DESCRIPTION t1ldaKUtBXZptOX4EzWsZSQs (test code = v1llc4TvpBMjuCAtXJfnkRZb [id number]) cyGkni89sLW9tH11BT9qTIAy IpK9XAGuauJ9Pjf7GFHdKEPw nJYrO487t0ncl6wrzoGxkUJ7 BTJjOBEzH7VhKO4kPMQpxSAz H07cjSKwNWG0GSJpAVVuwDUj KWUpUFR3WHXzhEKkS1nuCTKh RN4ojsxtCKwmJDkwKVRsfWV3 FTYroLQfS0KuZDZjCZitRIEf lwa2TmZjFu3ajHIjdEwjOSdp OIXrx8wgZKUmmENcOSZ0MMgs yRZnSCRuIUExNNu6TWJoVNri cZIiTC0znIsuXfsfpEuut7Hi dCBcXGlkIDUxMDAyIFxcZGIg Y7BIZMWbMXBhJXGbPMUrLFk1 LVsbS8RNZSDaCPWzMoh6Szg6 HiR9EKz8DEUGBc9oSnP9CHr5 GwT3FBE0CVCjQPvqsLUkGAuw ZmwgXFxmIEFyaWFsIFxcbmN9 SCCwIAyyQWUyAxHfMF6wPEzf kBxzGc5vYFaoVXOuiB0pPJJ4 JHgzJ9HrCO92VUOSgDJ2wW2q FHuwJREumnwhptQpRQDwV0Wu dmVkIGZyZXNoIGxhYmVsZWQg y3i1vLS0kIVlrAK9aBOrgWkw IvZwKL1dmUYrXT7bPZeyGCbi gtQuk3MbUP07bHJuwvPsecBl TtF4LLQjd33vULEmpHOcKAUb DaBqU18xLA55fXQmM939hGQd kRcmwSuqhj9nQJOhyFFevXK6 ZOCmyQ4paI08nxIlccBEXW35 YLZhjMTzUXF1JR9aHJDrjqza AMCqEYVfIRF0ZJntrB44dKIz XGZzMTZccGFyfXtcKlxlcGlj s5RniMTfGTppDMWsVTXvGFfn DXRaM2RFPIKvNUZsZHBeFFNh VVw1TPspI2ONWHYmWKEmWxi9 TRV0NqK0PBd4CXGTEm3lYeO3 SPz1ZrH7QYG2HOZkXBflhACa IFxcZmwgXFxmIEFyaWFsIFxc pdW1RRWcNtKoLd0dTPcgfDaf Jr6hUUzlPQ76KTHgu6Xyyeom HltzhTAqAIB2OMLfd12vVHFT LlxwYXJcZnMyMCBSZWNlaXZl ZCBmcmVzaCBsYWJlbGVkIHdp nVzmhIasDAVmqCeqsfEzL9N2 zeGaMY8qRUFcPGTfH2EfKGCg A39yPZWmtO1dKYSeQS3wUWEh zCT4lJ4qVJCaIlRwjqYgJJNz JCKzwPHdxcJvvnOpn2YaWbKq tE7mzKHkw5KxLTG5Ri9qpXLm YQLkhmB6t0MuZHcnSARyWfeo JUQkW0KjG6PbodPtbEWnVWJi pfAlb1gaRZW7BAOvjOTcdMHd FtCeTbetRTH1w8xpUVQleHUi MUU4LRtwfDTzQOWgXTAtADdb WcKHWmXxGsH6FHX9UIZ2BlT0 WDc8VKWEFbMxIcXxDcZhDhDf MdRrRFh7KEl2VGhFIuP4JNv4 EUImGSAcUOIgAPMfAUx2AZXd XFxmbCBcXGYgQXJpYWwgXFxu J85lZhThCIAPQoEJaE1iiWIE g0CkEYPCmOphuzdjZxbyfFVn AKT8TPAxu38xQWJHPxpwYXRa ZnMyMCBSZWNlaXZlZCBmcmVz aCBsYWJlbGVkIHdpdGggdGhl RILruUughgKcE5F9oaTkBI2i FFNeDQLaK5ReZKXzP54fYWQk mN1qILZpDU6rLSAxbAW3fF1p IDEwIiBpcyBhIDAuNCBjbSBh jjMbilPkv9SeWuYesR9dfCGi h2BeIGElGUmmHG31GAXrjE17 bbXweBCkOMXpp0DdlWc2sYQm UEqbYKBkiT8ooW0tVmWyp7fc eYxsn1JbnWLnMOysHHXhfVEj KDdguW7cUtHmf3sblTr8DWmp roN3GEKele81GYhhONMuI2Xy J7NbFIhaHRH8KJBrOuRiWYMk YJ5GKiJnNEFkVcWrSCTdJTz1 BKz3EI0FTvPwBWPzHGR8RRs9 QUMpNTt7YSniEN2XVVWbUka9 ZrmrVGR6JFK7ZwQyBURwAjFh LQOfSKekPpJVzyinfOCtNL9r jEsbrmUhVHZvRXh8ldczTZSj W0s3RMBzaTYrAUuhQfDpGZZa clxmczIwXGNmMSBSZWNlaXZl ZCBmcmVzaCBsYWJlbGVkIHdp dGggdGhlIHBhdGllbnQncyBu ZY4kWDHSQz9uSZ8iVNw6atzk RSCaA7c7MFJskAJuCLyoBwGy IGlzIGEgNTcgZywgMTUuNSB4 RRYlXCV0VPXjZFJrxPLuvE7b QYZmT90cqyJeD9OulVpyWIDm cGFyXHBhciBUaGUgcGxldXJh CUFxr6XwTWzqRLVoTZZiYGNe i3NpXIXnFBQsr17lAUYwOROj NRhmZNSeKTHjMX4eMPOlFjRb d2fpOSOtcySoKP3hWDVlYCNa PkFid73iKRF8bP2jZCN0SB2s CCVydgXmj1YzkKtlETSmYPQk bWVuLiAgVGhlIHJlbWFpbmlu XsRhtEK5ibVuSAO6xwLkE1Dt tRZfcxYyVV7wlf0fiyMhadWv y30ue7IeOnw+TXKlMBIkpG5o AXulCTOxwawymIw5NDIaS5Pm o32lSZQ0zaQxULUfIVfoZMJx WpCbwPYqJdEwoRLeMtIqJ07l aWxsLWRlZmluZWQsIGdyYXkt nJQjFZBtjPVaAU6bd7Pke1Wg cfWlHW33ITYxLCMiJZAdlHI3 hvZhgWjupVDjvqTsYrynK96s CkJejSP9aBWyyZJrVS8kaGph ORzgnJBgJ7krKfZjGJ6rTQFw LXGaAqDuH62pFoIvaAO3fEPy tDQtqpJvwsBoWRFrCvP4GIHs JZB5CJIfDNExzAQgpTlxTSIq kI6vAMnvsUZwkO16ZCTgwm0v ez3pfHrfHXSbHXBbiZQeEZ0d RBLqOCTge98emVmiHAErewHr M9o4uVPmHB6ejqwdquHiamWj WK64DKJuJUCqb66wfMioTHKz ZXVyYVxwYXJcflxwYXIgVGhl IHJlbWFpbmluZyBwYXJlbmNo oD5vKBdpNEDaVIHbvfZfa2Or boj7NCQikNKly6DztQY2xNNb WULsY8Ezg56qAMjoSVOzYRVw bZizDLj7QDSnnpDos4ErzIu9 zMVmRaOwN5Mqp6YtfLfjaO3l pzOuqLRbRWGjAESwt4XvNuiy NDMkzPQiXHsxcsRuu9LnGojg gD7mGMBdbZQ7ZZZsXZLxCFfs SHCypMTuOCErZ9Efb74bU17g PUgnpamhHJWeKGQdNVO3IHLb dGlyZSBtYXNzIHRvIHBsZXVy INhaCXEzWVXwNDI9NTAvqTKi w9RskVA6pFRqHI5gJNWsQGMu BOXrLmQajOX5kkGoTXHzRQQd i89bdNbtRFVMZjrpKtVxfpQt QU72GGHfscTte1Tvh0Fri39u XKEnXDLdz7EdvQfedVQopBOw UTrof5zqpgQybHDdUKS5SzJy ZCMdUQNov2EnVebocw6qtIVi fUfrQQDPAQslC5Tkg99fYILo VECvl1OqeNignLRxcTZrfIKv i8Fel6vrPEAiDYdiBjIzUzHv V20rtLTzxQ45RM9cVJQsGPrc CHPkS8JoUDYqYTJ6LOXdm7Zy y7MnlNReFM4klSabYHkzcXGd E8ibTEScOV7mw0OdIVFaTAAg L9VksTteBVLVIPZ3JLHpl7Cu w2NxqYLzUS6cuYeuXDkvaLYy D1ppOFXuSH1uQLXnRXscFZ1l ZmFjZVxwYXIgRDEyOiBBcmVh LO1aEFYgTPVxOBqpS09rQ8At dGlvblxwYXIgRDEzLUQgMTQg MfT0djpobn9fsbGlDRFjgtNv B0q1hPWrhINeRDJzxeULuVDf c0HvRGozIVZgWBGYXGLcVVBX HFjRL5ZQOOCwp1kouYhcn3Rr aMYkGQ62DZIilTSfWBO6ZG9q fVxwYXJ9 MICROSCOPIC i1xmkHBrBHRzkUK8LpWwXSXc DESCRIPTION (test k9ume4TrwYOomTJhLTormNDe code = 3371) ncKscm00tBA4lN90GU3tOYDn QbN0VUKpdbJ0Ukk2ZXCdNFRh bDVoK723c3eqc9agrjLoxLZ3 cXegHMQfzmojKdA8MSjwEKIg kbkaEQi3MDrtHUVscNW6LLKs nSZwE3VfZSZbMA2uzml7TWW2 DSvrVHUcOsC3FBLfqOVbFJJp tVaaRAjda287KAO1RyJsVYMz nlDdzJdeuG6rYqKpFOVCOTLv j4HbFANqBUDrekviEMYvYWRe cn0= [facility] Beach[facility]issue [id number] 12:25:22 Test Item Value Reference Range Interpretation Comments Case Report (test Surgical Pathology code = 104) Report Case: [id number] Authorizing Provider: Ernie Washington MD Collected: 07/15/2022 09:20 AM Ordering Location: [facility] Received: 07/15/2022 11:36 AM PERIOPERATIVE SERVICES Pathologist: Willian Restrepo MD Specimens: A) - Lymph Node, Pulmonary Ligament, Station 9, station 9 B) - Lymph Node, Interlobar, Right, Station 11R, station 11 C) - Lymph Node, Hilar, Right, Station 10R, station 10 D) - Lung, Right Upper Lobe, anterior lobe segment DIAGNOSIS (test code k7jyxAQgSEYpq2emPWQspTEo = 3220) ZzEwMzNcZnRuYmpcdWMxIHtc cnRmMVxlcGljOTYwMlxhbnNp KMRozAUaG9XgbszxIHhaCP2e MO9drBqaeHYphKIcCSPgSiGo b7ejl744vMWhn1arZHIEgvbv dFn6gPrbL11ba1U8LiddS1py KGQ6FRlkqgSfcfHlOMKmtCS3 OYamjpDsPJYeZ6RoCP6mJWdh xGVxXTZ6jFuwGIQtgihuIwW4 IMsfEFQeoivwDLk4QVfjWCYo wBY0WIYnpGDyK9HjLWQpQQ6u egb4IPR7IPjnVLJiFvN6RUGi uUFkWLHixJnaNWxag445YLV7 NvVaOWOqjdUiiWcmfG9pHvCb HFnxIxHiQG5kRXqKVJkiNt5C TZnkPNTAGW3PREKRYHtNP3FF WP4EVGMSIMJHRS0IDMwwADPM R5gAHN6CGqciADCbE5NdRDHm ICBPTkUgQkVOSUdOIExZTVBI JQ2YMTGmPDDnPVvvsRCxSBBd asEvyGZmAZEoDKBTSfVOXZ1N ADKVS8SPJDVAHnEOWpfNUaCN EFWYIZIXLB3DAWKsQdhrGQjA AIEWZ709DXAbyrfoOdWkLR3j DG1NVRGLBK3JA30zXDuGIIko Qj0TCKMnDV5cNHopSJBuxZJs JHxxGbJxfODoSVCoUNEKNB0Z DZIGV8VWUCANKXvJGtbiU4UJ LGsSDfBlOLAaIPAQJ6tGXH4A MkunNXQsL3StZJNaKWGOTmAy EqUEVIiQSNjUTGRLIS1WFPDs EWIpLWzffUWsONOzdpWoU5Hv SFNiukRAYpUEKM5TEUXGAGoC XOAXONPSCgBUP2ZBMAKFYiML MieJAzPVG3NRPHHZI66DSkKc IFJZI52WZjKAO9WQRRq2KKVv pibkFtShnq8gIO7OJjQCF0tR PVHWLCHJQ8XQXbSYVx1PFLzo LS9SJauYDYTEPvUQIoOKFLaK VEVEXHBhclx+OFSwtvxNA0TA SDVYHL9JT4xZQpAGTYPLVfZH C3xSLKPdMAEkBMtmTKEISlHI ICgyMCUpXHBhclx+LSBcflRV EJ7YAC4PDOYCCmDEANMzUFUJ JOQTTwUVGeGLOWRLFSTJNY5O ArZLZ11wrXOrWY3vYLl+Tk8g ZvgBS3NNXRhqQAlONKYAWXJD GwEHX5tDReGMAuOAXDXRENiY SUVEXHBhclx+LPKyrw5BYYoC WFJCO2UIQ1KMGRBRESiAUxVZ TL4GNUwBWZcFCF2MPRWVDVTl eHQoFN6fEBg+VWQKSE2DJCfW PEpuZgEXUNOQXR1YOE8LCidD KlnyIzLIRLECVjNsJl8LZT3B OBiMWzGYE1wqNFJnMQJTEMUS V4LEGWzcGIDhNO4gVEJUBARL OOgmHJADUABKN80MKQHjtzWo WSQbYNNQBFmVPBvmVZDXYc0B QVRPVVMgSFlQRVJQTEFTSUEg IW3rIBeJMCJAF7jFKl7HGhBu wXOsJK0vOEl+INRPTX1NP6vM OfINJZSFGY8KNgQnNHNjQfVR vFUsCEmZPwB2uXmbVINtFIey IBQ5s0crmFCeDZGbiBThGYZl MFxhbnNpXGRlZmxhbmcxMDMz XFU0rrKxKWHbANxwAARoDXhg Gf4htNEvpJslFhPbBLQff5hy bgWSedgbqIy1p9bfCZMxJfN6 qKDxEUidB6mqktDplBXoVQSg YSp2fW15DDVgmE8kpPNdCEus apZcNhK4TVxsURIcUhY3VIVq jWCsXXTdJ6vrZYBmUThfZSWr UIxlgXHtYSP6eGlcf2Y1pAZu qSRuoVkzLtRhIyOjXdYFc2Vg BKw5eMqtT3TiMFBiQxV1aBIo CWUoTPwnNCGdAABkmoL6wS66 UKegrlR7gMYwj4Kyq17lf099 tX2hhQLuCII7JHPsMBAgdTRx HCDlKLW4DBLmgGSwN1vtJIMb WC1fbopvGSxuKQbeGMWheUD4 IQWtuAPfI8DxKEAeTOxnCDCi cfy8SmSuHj0epICauSvgAEda j1pys2awqUIlHjj4GZZyRqCd MmssWDweb7Mdn3ihTNYvqj5j JRU8nUHdwTrpt5H4xUVaUEFa bTDoNVPgYJ7dyJHuKIDjtJ8l cmxjXHBnYnJkcmhlYWRccGdi lfQlBv6whUaaSGI9SHahV2wn wZ1bClW6SMuwI5qpfY2bWLm0 YLleDGYisES4fyY8ROPvoSCv N2RzxQ5oXWJxWA0redb3q7of WZM4KZekYEPzOsL7rcM2HIBm bLGdGKVtqCfpPRmry520KNZ0 WbDzBUJmj2QlG2LzxUhiN14p uCeaA59mQCBcoVhhqS1maOhr cC4kRjHfYfEcSNcxcLmxOB7g NLXqC8ijqZYvIUSwQKJuN4jg KnGrxG2fqZjaEStgdzSlKFHq Dll5IRXbsPUzHGQjSzy0XTHt ANKnN62iggptLHU4hZ5cb4at u3WqRKknOHY8XCXsq33jXLik hmC6QFkhSy3hYuZlNPO6QSbx YXJ9fQ== COMMENT (test code = [id number] 3359) p9plf5FziCYfxYOdAGmfsJEn nhTryc39eQN2iC11NK8qHYMt TmD8YXBjuzG8Rbh5JOSmKBAd bHOdW819g9ihm1uiydKzyWT1 zGzxWGZmrwnyQgG1EHsiBJAg cmiqAYk7HNkbAKBryDA6KBLi sFKvM8KdFMAmUZ5vlkr0YKC3 MLzoOXPrDaT1PGImmNDlBJTw jPfgVVbel120OYV1PwLrUFUn jfWvrSdjmZ3vDnLfFJMTgO5e ROPyNQOxh8J4LRb4VUKuygCV qY4frotrIQTflGTvLS6zfe9o yUbeSQP7NMQvajaqTWNxMZDt e4Nzc5yedOVsXLNqYL89POQw WP8xb8nwie1kxMTkWDVpueXi oM1tORIdEYPfxEQhjGrkRc8h PzLrmFs8iyE3sEuvXHRhHSVv lC7ntGVjUQphUGMgNDVeFWTi ZHVtLiBccGFyfQ== SYNOPTIC REPORT (test LUNGLUNG: RESECTION - code = 5765) All [employer] Edition - Protocol posted: 04/09/2022 SPECIMEN Procedure: Segmentectomy Specimen Laterality: Right TUMOR Tumor Focality: Single focus Tumor Site: Upper lobe of lung Tumor Size: Total Tumor Size (size of entire tumor): Greatest Dimension (Centimeters): 1 cm Additional Dimension (Centimeters): 1 cm Additional Dimension (Centimeters): 1 cm Histologic Type: Invasive solid adenocarcinoma Histologic Patterns Present: Acinar: 20 Histologic Patterns Present: Solid: 80 Histologic Grade: G3, poorly differentiated Visceral Pleura Invasion: Not identified Direct Invasion of Adjacent Structures: Not identified Treatment Effect: No known presurgical therapy Lymphovascular Invasion: Not identified MARGINS Margin Status for Invasive Carcinoma: All margins negative for invasive carcinoma Closest Margin(s) to Invasive Carcinoma: Parenchymal Distance from Invasive Carcinoma to Closest Margin: 2.8 cm Margin Status for Non-Invasive Tumor: Not applicable REGIONAL LYMPH NODES Lymph Node(s) from Prior Procedures: No known prior lymph node sampling performed Regional Lymph Node Status: : All regional lymph nodes negative for tumor Number of Lymph Nodes Examined: 3 Dusty Site(s) Examined: 9R: Pulmonary ligament Dusty Site(s) Examined: 10R: Hilar Dusty Site(s) Examined: 11R: Interlobar DISTANT METASTASIS PATHOLOGIC STAGE CLASSIFICATION (pTNM, AJCC 8th Edition) The suffix m (or a specific number) should only be used in the setting of multifocal ground-glass / lepidic nodules that histologically present as adenocarcinomas with prominent lepidic component or multifocal tumors of same histologic type that are too numerous for individual separate synoptic report and that are not better classified as intrapulmonary metastases (e.g. numerous carcinoid tumors). Multiple primary lung cancers showing different histologic type or different morphology based on comprehensive histologic subtyping are better staged as independent tumors without m suffix. pT Category: pT1a pN Category: pN0 ADDITIONAL FINDINGS Additional Findings: Atypical adenomatous hyperplasia CPT Code(s) (test t9reaVSrBVDqnTN2YtXkNIMv code = 3357) k9wgt6OreMTvqCAoTQpefXUz qcCvvm23oQK7kU73EI9qGOMd HyR2WMZdkoM3Chr5XDVqJZOh lECyP463r3rte7bitlOavCL7 sPvkVYElglmwTeN4UXsqQJIy pjozLTe3PJkyRXRaaHQ0WRAy kBSaC9LwNRUxGR6dgxp9TRW5 AWdoJSXrLaB4ZOHyfVBvGHAt oFxpSVemu565EGL1PiXtJGFy bcXszLyzjP7aTfQiWOE3HGAp MKesUXCcMElsYMVLI1fvVFX9 CLINICAL HISTORY v4tvlIIyJMTdhIC1CkWhDUAl (test code = 3356) p3zrq6TvfVOpdNVdMRuqmOCg wjKrau22pZY7xA36DU6bUWBz LnF3PHDpcqY9Jbk7DUXlYWSe eAYzF394h9xwx9iecgXpcUK6 yOhyRYSvlewyWeW9PQqrGLCw biodFGi3XHjhBNDvvUZ8NVCw yXJwI0MdXQXdGL3bhot7KQF3 ODudAQRuNpC7FRCfzQBsBYFb jFouGDofb532OJH1YmYnWHFg xhUdyNmhcE9dKhMpRTFDBUYz a0UcsoFyiq4eWIFdoYyjbFPl uE3cXEJdni8= GROSS DESCRIPTION b4qcwCDfPBFgkVO5HhOqJCCl (test code = b5rkb4VbtDSxmRRvFMthoVPe [id number]) llWjhm65oDN4mT73JB0oQHOn UqL0GDWkokI9Cuq3BRJwKOSi zRMoX531e7mbk7oezdLclUH7 INLzFSIrT2RmBS7yOVFqfHWv T74woIRcWFN4JJLmURQxsMNj UUXzRUC3MZThmIWaY5bqRGKj VX4vwvevJJjnHNhrFAAvkCC8 IHOzrBXuG1ZhGQHuWSurRKGz rgh1MnQhOs8paFDlvNbkLPpr MFImm0yaOSTvwLWxFMC6ZUpc lMFdTUVnMLIsZSa5BHTzZAoi gQMqMK2htAvyZoermClse0Dv dCBcXGlkIDUxMDAyIFxcZGIg U7YIWTJoAIEtSVWcXAByVXb9 QYcuY9DTBUYuFYAuIkk3Zdu4 EsO5ZJi8AFQKGj6pIkP1CZm0 HoE9WAQ3ZEDgXHxpfCSwRFgy ZmwgXFxmIEFyaWFsIFxcbmN9 ORBkOWzsVUTnLyMkYH0nYLic rDtfTz5xXTlrGEXudD7qPLT7 SEmnR7PoZP62CNONzBA5lO8r XPznVHFhwavhmlMwLQWjG1Va dmVkIGZyZXNoIGxhYmVsZWQg h3j1wHW4tLAhuVW0wBQvdGia NvJeJT5xbXSjYY5cMXkjXKak coVvj2SuGZ06tPNbvtSxhdNl BkL3CHTbg08cZWMeqXKmZHZu AdQfM67eDI62lXLdY736dXNy aWivnWitti3bANAsnNXyqVO7 CBHkoC9rzY06viIekdURPD89 COJigQJbVIU9LT7gOLYwgyed PGIxECFwJSF0AYdyqY41gCDw XGZzMTZccGFyfXtcKlxlcGlj b3AukFQaSEweZGVyWNLaVXir HXFzG1HJGJNlIISdVNGxDKIm VGx8QNflW4UWYNOfBZTfRjv3 YUN4ObI2VWf5DZQBOq8mXaD4 JRk9YhA7PFL7CHCcRHcvhTRf IFxcZmwgXFxmIEFyaWFsIFxc oyG4FWIqKyLpDn5bVTcuvIgz Og7kSJgcDL31DEEqm8Wqzclw DujatGDxCUC1RZOhr63lFDYK LlxwYXJcZnMyMCBSZWNlaXZl ZCBmcmVzaCBsYWJlbGVkIHdp dLytoBnmMRCnoMnohjVtH3P1 pfWdEN9fJLDoBUBdV5OxGEIb I74lMHUodS9lGXIpKZ3oXDTy rEF6fZ5iKUFvUwXbvlRjVBKl MAJwjPHvnaAtayZos9MlJbLs hD5reBPka3ZbHQC8Co0sgWLy CCRwqzV0g8ZzURoxUWBiWcnr SFNwI4MkZ1KwppWpjZTuTICv kpYec0pnZBQ3TWVnrIJyeOOq UiBaQoikICY4s5pmKNUrrRQk SBK1MCiicWByOHOvAGKrSMsh RhEFCnFtYhJ3XXQ4QGB6MuZ9 GIf4PZZYMxGyKmLjPgPgKpXd IxBfDFu4EEr2DDdKJcQ3PUy3 YUXsXDYdUVQjZFZuVYx9KHCc XFxmbCBcXGYgQXJpYWwgXFxu B67wVeWpYYGJWtIDjL7qxCMN t4TfKMHJvTtcosxqSiyczXKp PVP5BSWes54mLGILLquyUSIg ZnMyMCBSZWNlaXZlZCBmcmVz aCBsYWJlbGVkIHdpdGggdGhl IROuxWrgxfLmU7S5ncVvDU6r EGIhTNPrV2KoFRTaM40hKUQa tE1hTGSbOU5aBZPrxBY3hF3v IDEwIiBpcyBhIDAuNCBjbSBh oyRiypHoq6BnLeGvxK3udQId w6QjEABeCMkzVD69LWMjoY78 hrIjnVZmJNSwl3LgdOy5wCLe WNxkSGHaxI7bcQ7zDkVsu5xh fIdus7CpaJFsIVxpBMGrfEXv WQzezS6eXfFlm1anhEm7ULgs euT9WHWlfz16LIhdSVYoX5My T7QfULejHJG5YHGyIdLrOFMq OR8HZfRhYIDlVpOyVQQdWBu0 TMk4LX9LPnXoDAFcBTG6TMw4 THIdQOd9EFgnBT1TMQIxDpd2 JhbiNYP1KVM3WbOkHWEgHaHz OJZzPNjtMuECmcsrpOAdVT3g fVwhbbReOBTjSMa0ejdqVOSg A9t5VUXlgJMfNFetUjXkMEJp clxmczIwXGNmMSBSZWNlaXZl ZCBmcmVzaCBsYWJlbGVkIHdp dGggdGhlIHBhdGllbnQncyBu JN0yKPQUFr9aZY8jWLk4xiir CFPmI6j2AFVtgWQpMQxkUbHq IGlzIGEgNTcgZywgMTUuNSB4 JMKwAIH3MCOsPONiiUIriY3l QPBrK18gubSvW7DeuCfaYQBq cGFyXHBhciBUaGUgcGxldXJh YFSpo4QqRGhyYCBkHYCyYEPd q2MiYFHaLNRbd38uDQUgXJLp JBojNWMtEBTxFK1jUYWeAlAl f6psLQFbgzGnJA7nFJAyXTZm KmZte90fJGD9eS0nYPY4IU5y URSgutSkt4EgvDtqFBAcUGUv bWVuLiAgVGhlIHJlbWFpbmlu TdWhzOT5amMeSQL1vhObQ8Wz iABimsAkUW2bqo5vglHvhuDt k33uv0IzBij+ZJXhDFBdcV9w OIstMVLvcqhucOe0YHVrU6Xy t15pVHP0zyVuWRBsTBufENXe BbCvtMObEzKsoPYsEyBfN62c aWxsLWRlZmluZWQsIGdyYXkt lMEbJTKtbEVzXQ7em3Cxi9Mm wlOgAI41TSOnJXVkMWWaxFV7 anMxlCpehTIyibSlKounR26j IlOloYD5xANleRVlZJ0liIoc KHzodLWhL3khElEwVU5zQNNs DAAcIxRdJ16zRvJzuNV1pKYj wEUkahWlluGePBAgWgM5EITm APQ1FWXnBQVxvMIajRhdRSXg iV9dSDewfADwfS79AHUgbf2h xg4zxQvvBMTpNOAfbLHqXH9d FVBqDCQle83qrCgjVNFeduVp S4k2fEWkQR9ngikwbzFceeKx QO86TZFqBVRks55vzDimFDQu ZXVyYVxwYXJcflxwYXIgVGhl IHJlbWFpbmluZyBwYXJlbmNo nQ1pOCjrIZRtXEKjilLhj5Nc ify2AVDtzDOqy4NgsCV2qIOj EEXqG7Tnh27iEPqoTVVkKVBh eEbqZYm5OYAprtXai7NhhFp3 xJEhOmFdM0Tyy6ZvfYonsD3b buFcyJJoGETkGSAfn4WgKyjs LTHlrZFvLSyigjTwo7PxOpiz jI2aSMSenFH8HDTkLXZrOTlo PDJfzTBoTYGfU5Btm72qV98w EIlofmixSUHsGKKwAAT4HDYn dGlyZSBtYXNzIHRvIHBsZXVy EMweBZYxQISdZZF2RAPijOCt z5NlhTQ5fSCyVK5tAPReHYWf AFFqUkAsxRR2zrPfLOImRJKw l92ybVzrVEAEXbkvOuQgiyRc YE40WSWsbzBgh2Thl7Bpg04h QYFuXRCcz4LhpCrdqGLusQVf PYfgy9eqalWtcWHkGSN9ZpVi AURhSXXoz7QhXopnhe1exGCn sWmwUXUVLRabU8Lxa25eWMSz FKUdr4NqwEutvRZrfKQkwNTw k0Pnv7vrFZPfQUghVaTuKhHi B48mlEAvvZ98PX6sIKMxLChv TIMdC8YcSCQdLXE8OOVzm5Kc o4UhtCSxRK6yaAbmYPopxQQa S7vdFFGwIV3ls8HdLMBcGSSf B8EhcRgxIFFVTOJ3TKQmq1Zo n1WguUTnOM9xkRfgXOtzgOVh C6phZDOeMT9zFVRoIVsmFH5v ZmFjZVxwYXIgRDEyOiBBcmVh KQ3pYXBgWRQhMTleV62qJ4Nk dGlvblxwYXIgRDEzLUQgMTQg YdB5mgjbje7ptaNaXAOmabXw T4n5yHHhiCTiTUGtbsUGzNWi o8CiDHtpHVZkBKJRYBCpUTKU UUhHF2ACVXCdl4tqpLcll5Bc aITyZF05JSEzaGOhHTT0RE7b fVxwYXJ9 MICROSCOPIC u4hidSYeUONnuJE2QwBcLIPp DESCRIPTION (test z2xxh3DqzFOphWBrIDulcMMg code = 3371) cbMrog82yMM3oP43PQ5rXDUg XaW7DFIfiqS1Sgc1JACjVOHu xAFiO989z5cul8tgikDokWZ4 vDkpWJNzavqaScF4FWotTOTy hddlRJn0EEwgTONvdWO9DCEc uEWcA8JqHZHgST6wxay0RFR1 OZnkZCMcEeK6KMAooIJmDGHx mLsiXKzeb565LOM8SfWlZGXw wdOloZaxuJ9cRnNbQFPOLKJf u5ZzMKLfWZVwglhdSVLuALMn cn0= [facility], NON [id number] 08:56:00Reason for exam:->post-opShould this be performed at the bedside?->Yes [facility] 1945 Sex: FFINAL REPORT RAD, CHEST, 1 VIEW, NON DEPT INDICATION: post-op COMPARISON: Priorday's exam TECHNIQUE: Portable frontal view of the chest. FINDINGS: Support Lines and Devices: Stable. Lungs and pleura: Unchanged airspace and pleural opacities. No pneumothorax identified. Heart and m ediastinum: Stable contours. Stable surgical changes. Additional findings: Subcutaneous emphysema inthe right chest wall.. Mild spondylosis and facet arthropathy are present within the spine. IMPRESSION: 1.No significant change from prior exam.2.Postoperative changes in the right lung. Signed: Fernanda Nelson MDReport Verified Date/Time: 07/17/2022 08:56:15 Reading Location: [address] Reading Room BASIC METABOLIC [id number] 06:35:09 Test Item Value Reference Range Interpretation Comments SODIUM (BEAKER) 139 meq/L 136-145 (test code = 381) POTASSIUM 3.9 meq/L 3.5-5.1 (BEAKER) (test code = 379) CHLORIDE (BEAKER) 107 meq/L 98-107 (test code = 382) CO2 (BEAKER) 27 meq/L 22-29 (test code = 355) BLOOD UREA 14 mg/dL 7-21 NITROGEN (BEAKER) (test code = 354) CREATININE 0.79 mg/dL 0.57-1.25 (BEAKER) (test code = 358) GLUCOSE RANDOM 118 mg/dL 70-105 H (BEAKER) (test code = 652) CALCIUM (BEAKER) 8.4 mg/dL 8.4-10.2 (test code = 697) EGFR (BEAKER) 76 Interpretatio n of eGFR (test code = mL/min/1.73 values Stage De scription 1092) sq m Result G1 Cehryl l or high >=90 G2 Mildly decreased 60-89 G3a Mildl y to moderately 45-5 9 G3b Moderately to s everely 30-44 G4 Severl y decreased 15-29 G5 Kidney failure <15Reported eGF R is based on the CKD-EPI 2020 equation that d oes not use a race coefficientEsti mated GFR is not as accur ate as Creatinine Abbey adames in predicting glom erular filtration rate . Estimated GFR is not appl icable for dialysis patien ts Biofuels Processing Technician ID - MINOR [id number] 06:35:09 Test Item Value Reference Range Interpretation Comments MAGNESIUM (BEAKER) (test code = 1.6 mg/dL 1.6-2.6 627) Biofuels Processing Technician ID - MINOR [facility] W/PLT COUNT & AUTO [id number] 06:32:45 Test Item Value Reference Range Interpretation Comments WHITE BLOOD CELL COUNT (BEAKER) 9.5 K/ L 3.5-10.5 (test code = 775) RED BLOOD CELL COUNT (BEAKER) 3.46 M/ L 3.93-5.22 L (test code = 761) HEMOGLOBIN (BEAKER) (test code = 10.6 GM/DL 11.2-15.7 L 410) HEMATOCRIT (BEAKER) (test code = 33.7 % 34.1-44.9 L 411) MEAN CORPUSCULAR VOLUME (BEAKER) 97.4 fL 79.4-94.8 H (test code = 753) MEAN CORPUSCULAR HEMOGLOBIN 30.6 pg 25.6-32.2 (BEAKER) (test code = 751) MEAN CORPUSCULAR HEMOGLOBIN CONC 31.5 GM/DL 32.2-35.5 L (BEAKER) (test code = 752) RED CELL DISTRIBUTION WIDTH 13.5 % 11.7-14.4 (BEAKER) (test code = 412) PLATELET COUNT (BEAKER) (test 161 K/CU MM 150-450 code = 756) MEAN PLATELET VOLUME (BEAKER) 12.0 fL 9.4-12.3 (test code = 754) NUCLEATED RED BLOOD CELLS 0 /100 WBC 0-0 (BEAKER) (test code = 413) NEUTROPHILS RELATIVE PERCENT 78 % (BEAKER) (test code = 429) LYMPHOCYTES RELATIVE PERCENT 6 % (BEAKER) (test code = 430) MONOCYTES RELATIVE PERCENT 12 % (BEAKER) (test code = 431) EOSINOPHILS RELATIVE PERCENT 3 % (BEAKER) (test code = 432) BASOPHILS RELATIVE PERCENT 0 % (BEAKER) (test code = 437) NEUTROPHILS ABSOLUTE COUNT 7.35 K/ L 1.56-6.13 H (BEAKER) (test code = 670) LYMPHOCYTES ABSOLUTE COUNT 0.58 K/ L 1.18-3.74 L (BEAKER) (test code = 414) MONOCYTES ABSOLUTE COUNT (BEAKER) 1.18 K/ L 0.24-0.36 H (test code = 415) EOSINOPHILS ABSOLUTE COUNT 0.32 K/ L 0.04-0.36 (BEAKER) (test code = 416) BASOPHILS ABSOLUTE COUNT (BEAKER) 0.01 K/ L 0.01-0.08 (test code = 417) IMMATURE GRANULOCYTES-RELATIVE 1 % 0-1 PERCENT (BEAKER) (test code = 2801) RAD, CHEST, 1 VIEW, NON [id number] 16:29:00Reason for exam:->CT removal [facility] : 1945 Sex: FFINAL REPORT Chest, 1 view, 07/16/2022 2:33 PM. History: Chest 2 removal. Comparison: X-ray from earlier today. Discussion: The cardiac silhouette is stable. Bilateral pulmonary opacities are unchanged. There is no pneumothorax. Right-sided chest tube is no longer present. The softtissues and osseous structures are intact. IMPRESSION: No evidence of pneumothorax post chest tube removal. Signed: Иван Poole Verified Date/Time: 07/16/2022 16:29:50 Electronically signedby: ИВАН POOLE M.D. on 07/16/2022 04:29 PMRAD, CHEST, 1 VIEW, NON [id number] 08:47:00Reason for exam:->post-opShould this be performed at the bedside?->Yes [facility] : 1945 Sex: FFINAL REPORT RAD, CHEST, 1 VIEW, NON DEPT INDICATION: post-op COMPARISON: Priorday's exam TECHNIQUE: Portable frontal view of the chest. FINDINGS: Support Lines and Devices: Stable. Lungs and pleura: Unchanged airspace and pleural opacities. No pneumothorax identified. Heart and m ediastinum: Stable contours. Stable surgical changes. Additional findings: Subcutaneous emphysema inthe right chest wall. IMPRESSION: 1.No significant change from prior exam.2.Postoperative changes inthe right lung. Signed: Fernanda Nelson Verified Date/Time: 07/16/2022 08:47:51 Reading Location: [address] Reading Room BASIC METABOLIC [id number] 06:17:47 Test Item Value Reference Range Interpretation Comments SODIUM (BEAKER) 137 meq/L 136-145 (test code = 381) POTASSIUM 3.9 meq/L 3.5-5.1 (BEAKER) (test code = 379) CHLORIDE (BEAKER) 107 meq/L 98-107 (test code = 382) CO2 (BEAKER) 26 meq/L 22-29 (test code = 355) BLOOD UREA 16 mg/dL 7-21 NITROGEN (BEAKER) (test code = 354) CREATININE 0.75 mg/dL 0.57-1.25 (BEAKER) (test code = 358) GLUCOSE RANDOM 116 mg/dL 70-105 H (BEAKER) (test code = 652) CALCIUM (BEAKER) 8.0 mg/dL 8.4-10.2 L (test code = 697) EGFR (BEAKER) 81 Interpretatio n of eGFR (test code = mL/min/1.73 values Stage De scription 1092) sq m Result G1 Cheryl l or high >=90 G2 Mildly decreased 60-89 G3a Mildl y to moderately 45-5 9 G3b Moderately to s everely 30-44 G4 Severl y decreased 15-29 G5 Kidney failure <15Reported eGF R is based on the CKD-EPI 2021 equation that d oes not use a race coefficientEsti mated GFR is not as accur ate as Creatinine Abbey adames in predicting glom erular filtration rate . Estimated GFR is not appl icable for dialysis patien ts Biofuels Processing Technician ID - BETH [id number] 06:17:47 Test Item Value Reference Range Interpretation Comments MAGNESIUM (BEAKER) (test code = 1.4 mg/dL 1.6-2.6 L 627) Biofuels Processing Technician ID - BETH WCBC W/PLT COUNT & AUTO [id number] 06:03:21 Test Item Value Reference Range Interpretation Comments WHITE BLOOD CELL COUNT (BEAKER) 12.7 K/ L 3.5-10.5 H (test code = 775) RED BLOOD CELL COUNT (BEAKER) 3.56 M/ L 3.93-5.22 L (test code = 761) HEMOGLOBIN (BEAKER) (test code = 11.1 GM/DL 11.2-15.7 L 410) HEMATOCRIT (BEAKER) (test code = 34.7 % 34.1-44.9 411) MEAN CORPUSCULAR VOLUME (BEAKER) 97.5 fL 79.4-94.8 H (test code = 753) MEAN CORPUSCULAR HEMOGLOBIN 31.2 pg 25.6-32.2 (BEAKER) (test code = 751) MEAN CORPUSCULAR HEMOGLOBIN CONC 32.0 GM/DL 32.2-35.5 L (BEAKER) (test code = 752) RED CELL DISTRIBUTION WIDTH 13.7 % 11.7-14.4 (BEAKER) (test code = 412) PLATELET COUNT (BEAKER) (test 174 K/CU MM 150-450 code = 756) MEAN PLATELET VOLUME (BEAKER) 11.4 fL 9.4-12.3 (test code = 754) NUCLEATED RED BLOOD CELLS 0 /100 WBC 0-0 (BEAKER) (test code = 413) NEUTROPHILS RELATIVE PERCENT 86 % (BEAKER) (test code = 429) LYMPHOCYTES RELATIVE PERCENT 3 % (BEAKER) (test code = 430) MONOCYTES RELATIVE PERCENT 10 % (BEAKER) (test code = 431) EOSINOPHILS RELATIVE PERCENT 1 % (BEAKER) (test code = 432) BASOPHILS RELATIVE PERCENT 0 % (BEAKER) (test code = 437) NEUTROPHILS ABSOLUTE COUNT 10.85 K/ L 1.56-6.13 H (BEAKER) (test code = 670) LYMPHOCYTES ABSOLUTE COUNT 0.34 K/ L 1.18-3.74 L (BEAKER) (test code = 414) MONOCYTES ABSOLUTE COUNT (BEAKER) 1.28 K/ L 0.24-0.36 H (test code = 415) EOSINOPHILS ABSOLUTE COUNT 0.14 K/ L 0.04-0.36 (BEAKER) (test code = 416) BASOPHILS ABSOLUTE COUNT (BEAKER) 0.02 K/ L 0.01-0.08 (test code = 417) IMMATURE GRANULOCYTES-RELATIVE 0 % 0-1 PERCENT (BEAKER) (test code = 2801) RAD, CHEST, 1 VIEW, NON [id number] 14:46:00Reason for exam:->post-opShould this be performed at the bedside?->Yes [facility] 1945 Sex: FFINAL REPORT INDICATION: post-op COMPARISON: 07/11/2022 TECHNIQUE: Single frontal view of the chest. FINDINGS: Lines, tubes, and devices: Chest tube in the right lung.Lungs and pleura: Postoperative changes are seen in the right lung. No pneumothorax.Heart and mediastinum: Normal heart size. Scattered atherosclerotic vascular calcifications.Osseous structures: No acute abnormality. Mild spondylosis and facet arthropathy are present within the spine. Other: Surgical clips are seenin the upper mid abdomen. IMPRESSION: Postoperative changes in the right lung with right-sided chesttube in place. No definite pneumothorax. Signed: Fernanda Nelson MDReport Verified Date/Time: 07/15/2022 14:46:19 Reading Location: [address] Reading Room [id number] 14:05:50 Test Item Value Reference Range Interpretation Comments PHOSPHORUS (BEAKER) 3.8 mg/dL 2.3-4.7 Specimen slightly (test code = 604) hemolyzed Biofuels Processing Technician ID - ADMINBASIC METABOLIC [id number] 14:05:50 Test Item Value Reference Range Interpretation Comments SODIUM (BEAKER) 139 meq/L 136-145 (test code = 381) POTASSIUM 4.3 meq/L 3.5-5.1 Specimen slight ly (BEAKER) (test hemolyzed code = 379) CHLORIDE (BEAKER) 109 meq/L 98-107 H (test code = 382) CO2 (BEAKER) 25 meq/L 22-29 (test code = 355) BLOOD UREA 22 mg/dL 7-21 H NITROGEN (BEAKER) (test code = 354) CREATININE 0.92 mg/dL 0.57-1.25 Specimen slight ly (BEAKER) (test hemolyzed code = 358) GLUCOSE RANDOM 109 mg/dL 70-105 H (BEAKER) (test code = 652) CALCIUM (BEAKER) 8.2 mg/dL 8.4-10.2 L (test code = 697) EGFR (BEAKER) 63 Interpretatio n of eGFR (test code = mL/min/1.73 values Stage De scription 1092) sq m Result G1 Cheryl l or high >=90 G2 Mildly decreased 60-89 G3a Mildl y to moderately 45-5 9 G3b Moderately to s everely 30-44 G4 Severl y decreased 15-29 G5 Kidney failure <15Reported eGF R is based on the CKD-EPI 2020 equation that d oes not use a race coefficientEsti mated GFR is not as accur ate as Creatinine Abbey rosangela in predicting glom erular filtration rate . Estimated GFR is not appl icable for dialysis patien ts Biofuels Processing Technician ID - [id number] 14:05:49 Test Item Value Reference Range Interpretation Comments MAGNESIUM (BEAKER) 1.6 mg/dL 1.6-2.6 Specimen slightly (test code = 627) hemolyzed Biofuels Processing Technician ID - ADMINPT/[id number] 13:08:28 Test Item Value Reference Range Interpretation Comments PROTIME (BEAKER) (test 15.2 seconds 11.9-14.2 H code = 759) INR (BEAKER) (test 1.28 See_Comment [Automat ed code = 370) message] The sy stem which generated this result transmitted reference range : <=5.90. The reference range was not used to interpret this result as normal/abnormal . PARTIAL THROMBOPLASTIN 29.0 seconds 22.5-36.0 TIME (BEAKER) (test code = 760) RECOMMENDED COUMADIN/WARFARIN INR THERAPY RANGESSTANDARD DOSE: 2.0 - 3.0 Includes: PROPHYLAXIS for venous thrombosis, systemic embolization; TREATMENT for venous thrombosis and/or pulmonary embolus.HIGH RISK: Target INR is 2.5-3.5 for patients with mechanical heart valves.CBC (HEMOGRAM ONLY)2022-07-15 12:48:16 Test Item Value Reference Range Interpretation Comments WHITE BLOOD CELL COUNT (BEAKER) 12.2 K/ L 3.5-10.5 H (test code = 775) RED BLOOD CELL COUNT (BEAKER) 3.57 M/ L 3.93-5.22 L (test code = 761) HEMOGLOBIN (BEAKER) (test code = 11.3 GM/DL 11.2-15.7 410) HEMATOCRIT (BEAKER) (test code = 35.0 % 34.1-44.9 411) MEAN CORPUSCULAR VOLUME (BEAKER) 98.0 fL 79.4-94.8 H (test code = 753) MEAN CORPUSCULAR HEMOGLOBIN 31.7 pg 25.6-32.2 (BEAKER) (test code = 751) MEAN CORPUSCULAR HEMOGLOBIN CONC 32.3 GM/DL 32.2-35.5 (BEAKER) (test code = 752) RED CELL DISTRIBUTION WIDTH 13.7 % 11.7-14.4 (BEAKER) (test code = 412) PLATELET COUNT (BEAKER) (test 189 K/CU MM 150-450 code = 756) MEAN PLATELET VOLUME (BEAKER) 10.6 fL 9.4-12.3 (test code = 754) NUCLEATED RED BLOOD CELLS 0 /100 WBC 0-0 (BEAKER) (test code = 413) Prepare [id number] 12:42:00 Test Item Value Reference Range Interpretation Comments CROSSMATCH (test code = COMPATIBLE 1742) Unit ABO (test code = A Pos 3301975) UNIT NUMBER (test code = [id number] 934-0) Status (test code = RETURNED FROM ISSUE 2302684) Blood Bank Product (test RED BLOOD CELLS code = 2263) PRODUCT CODE (test code = [id number] 933-2) [facility] [id number] 12:42:00 Test Item Value Reference Range Interpretation Comments CROSSMATCH (test code = COMPATIBLE 2264) Unit ABO (test code = A Pos 9271637) UNIT NUMBER (test code = [id number] 934-0) Status (test code = RETURNED FROM ISSUE 15101228) Blood Bank Product (test RED BLOOD CELLS code = 2263) PRODUCT CODE (test code = [id number] 933-2) [facility] [id number] 12:42:00 Test Item Value Reference Range Interpretation Comments CROSSMATCH (test code = COMPATIBLE 2264) Unit ABO (test code = A Pos 9703156) UNIT NUMBER (test code = [id number] 934-0) Status (test code = RETURNED FROM ISSUE 15101228) Blood Bank Product (test RED BLOOD CELLS code = 2263) PRODUCT CODE (test code = [id number] 933-2) [facility]2022-09-27 12:42:00 Test Item Value Reference Range Interpretation Comments CROSSMATCH (test code = COMPATIBLE 2264) Unit ABO (test code = A Pos 4431206) UNIT NUMBER (test code = [id number] 934-0) Status (test code = RETURNED FROM ISSUE 15101228) Blood Bank Product (test RED BLOOD CELLS code = 2263) PRODUCT CODE (test code = [id number] 933-2) [facility]2022-09-27 12:42:00 Test Item Value Reference Range Interpretation Comments CROSSMATCH (test code = COMPATIBLE 2264) Unit ABO (test code = A Pos 1231676) UNIT NUMBER (test code = [id number] 934-0) Status (test code = RETURNED FROM ISSUE 6963309) Blood Bank Product (test RED BLOOD CELLS code = 2263) PRODUCT CODE (test code = [id number] 933-2) [facility]2022-09-27 12:42:00 Test Item Value Reference Range Interpretation Comments CROSSMATCH (test code = COMPATIBLE 2264) Unit ABO (test code = A Pos 5893745) UNIT NUMBER (test code = [id number] 934-0) Status (test code = RETURNED FROM ISSUE 15101228) Blood Bank Product (test RED BLOOD CELLS code = 2263) PRODUCT CODE (test code = [id number] 933-2) [facility] [id number] 12:42:00 Test Item Value Reference Range Interpretation Comments CROSSMATCH (test code = COMPATIBLE 2264) Unit ABO (test code = A Pos 6534230) UNIT NUMBER (test code = [id number] 934-0) Status (test code = RETURNED FROM ISSUE 15101228) Blood Bank Product (test RED BLOOD CELLS code = 2263) PRODUCT CODE (test code = I1635Q79 933-2) [facility] [id number] 12:42:00 Test Item Value Reference Range Interpretation Comments CROSSMATCH (test code = COMPATIBLE 2264) Unit ABO (test code = A Pos 7814585) UNIT NUMBER (test code = [id number] 934-0) Status (test code = RETURNED FROM ISSUE 15101228) Blood Bank Product (test RED BLOOD CELLS code = 2263) PRODUCT CODE (test code = [id number] 933-2) [facility] [id number] 12:42:00 Test Item Value Reference Range Interpretation Comments CROSSMATCH (test code = COMPATIBLE 2264) Unit ABO (test code = A Pos 0598432) UNIT NUMBER (test code = [id number] 934-0) Status (test code = RETURNED FROM ISSUE 15101228) Blood Bank Product (test RED BLOOD CELLS code = 2263) PRODUCT CODE (test code = [id number] 933-2) [facility] [id number] 12:42:00 Test Item Value Reference Range Interpretation Comments CROSSMATCH (test code = COMPATIBLE 2264) Unit ABO (test code = A Pos 6859684) UNIT NUMBER (test code = [id number] 934-0) Status (test code = RETURNED FROM ISSUE 15101228) Blood Bank Product (test RED BLOOD CELLS code = 2263) PRODUCT CODE (test code = X6555H72 933-2) [facility] [id number] 12:42:00 Test Item Value Reference Range Interpretation Comments CROSSMATCH (test code = COMPATIBLE 2264) Unit ABO (test code = A Pos 5617194) UNIT NUMBER (test code = [id number] 934-0) Status (test code = RETURNED FROM ISSUE 15101228) Blood Bank Product (test RED BLOOD CELLS code = 2263) PRODUCT CODE (test code = G7179D71 933-2) [facility] [id number] 12:42:00 Test Item Value Reference Range Interpretation Comments CROSSMATCH (test code = COMPATIBLE 2264) Unit ABO (test code = A Pos 0691836) UNIT NUMBER (test code = [id number] 934-0) Status (test code = RETURNED FROM ISSUE 15101228) Blood Bank Product (test RED BLOOD CELLS code = 2263) PRODUCT CODE (test code = S3367V21 933-2) [facility] [id number] 12:42:00 Test Item Value Reference Range Interpretation Comments CROSSMATCH (test code = COMPATIBLE 2264) Unit ABO (test code = A Pos 1603820) UNIT NUMBER (test code = [id number] 934-0) Status (test code = RETURNED FROM ISSUE 15101228) Blood Bank Product (test RED BLOOD CELLS code = 2263) PRODUCT CODE (test code = Z4181Q98 933-2) [facility] [id number] 12:42:00 Test Item Value Reference Range Interpretation Comments CROSSMATCH (test code = COMPATIBLE 2264) Unit ABO (test code = A Pos 9262810) UNIT NUMBER (test code = [id number] 934-0) Status (test code = RETURNED FROM ISSUE 15101228) Blood Bank Product (test RED BLOOD CELLS code = 2263) PRODUCT CODE (test code = S8645G82 933-2) [facility] [id number] 12:42:00 Test Item Value Reference Range Interpretation Comments CROSSMATCH (test code = COMPATIBLE 2264) Unit ABO (test code = A Pos 4513785) UNIT NUMBER (test code = [id number] 934-0) Status (test code = RETURNED FROM ISSUE 15101228) Blood Bank Product (test RED BLOOD CELLS code = 2263) PRODUCT CODE (test code = Q3623V49 933-2) [facility] [id number] 12:42:00 Test Item Value Reference Range Interpretation Comments CROSSMATCH (test code = COMPATIBLE 4) Unit ABO (test code = A Pos 6024230) UNIT NUMBER (test code = [id number] 934-0) Status (test code = RETURNED FROM ISSUE 15101228) Blood Bank Product (test RED BLOOD CELLS code = 2263) PRODUCT CODE (test code = G7492X40 933-2) [facility] [id number] 12:42:00 Test Item Value Reference Range Interpretation Comments CROSSMATCH (test code = COMPATIBLE 4) Unit ABO (test code = A Pos 0534576) UNIT NUMBER (test code = [id number] 934-0) Status (test code = RETURNED FROM ISSUE 7569037) Blood Bank Product (test RED BLOOD CELLS code = 2263) PRODUCT CODE (test code = N1082U12 933-2) [facility] CenterCALCIUM, [id number] 12:41:47 Test Item Value Reference Range Interpretation Comments CALCIUM IONIZED (BEAKER) (test 1.15 mmol/L 1.12-1.27 code = 698) PH, BLOOD (BEAKER) (test code = 7.30 1810) Glucose-Stat [id number] 09:52:45 Test Item Value Reference Range Interpretation Comments Glucose (test code = 2345-7) 129 mg/dL 70-110 H Lab Interpretation (test code = Abnormal 69218-7) [facility] [id number] 09:52:45 Test Item Value Reference Range Interpretation Comments Glucose (test code = 2345-7) 129 mg/dL 70-110 H Lab Interpretation (test code = Abnormal 83258-8) [facility] [id number] 09:52:45 Test Item Value Reference Range Interpretation Comments Glucose (test code = 2345-7) 129 mg/dL 70-110 H Lab Interpretation (test code = Abnormal 05924-4) [facility] [id number] 09:52:45 Test Item Value Reference Range Interpretation Comments Glucose (test code = 2345-7) 129 mg/dL 70-110 H Lab Interpretation (test code = Abnormal 05725-6) [facility] [id number] 09:52:45 Test Item Value Reference Range Interpretation Comments Glucose (test code = 2345-7) 129 mg/dL 70-110 H Lab Interpretation (test code = Abnormal 25219-5) [facility] [id number] 09:52:45 Test Item Value Reference Range Interpretation Comments Glucose (test code = 2345-7) 129 mg/dL 70-110 H Lab Interpretation (test code = Abnormal 61091-6) [facility] [id number] 09:52:45 Test Item Value Reference Range Interpretation Comments Glucose (test code = 2345-7) 129 mg/dL 70-110 H Lab Interpretation (test code = Abnormal 27393-9) [facility] [id number] 09:52:45 Test Item Value Reference Range Interpretation Comments Glucose (test code = 2345-7) 129 mg/dL 70-110 H Lab Interpretation (test code = Abnormal 48310-4) [facility] [id number] 09:52:45 Test Item Value Reference Range Interpretation Comments Glucose (test code = 2345-7) 129 mg/dL 70-110 H Lab Interpretation (test code = Abnormal 32915-1) [facility] [id number] 09:52:45 Test Item Value Reference Range Interpretation Comments Glucose (test code = 2345-7) 129 mg/dL 70-110 H Lab Interpretation (test code = Abnormal 56814-0) [facility] [id number] 09:52:45 Test Item Value Reference Range Interpretation Comments Glucose (test code = 2345-7) 129 mg/dL 70-110 H Lab Interpretation (test code = Abnormal 84229-4) [facility] [id number] 09:52:45 Test Item Value Reference Range Interpretation Comments Glucose (test code = 2345-7) 129 mg/dL 70-110 H Lab Interpretation (test code = Abnormal 72660-1) [facility] [id number] 09:52:45 Test Item Value Reference Range Interpretation Comments Glucose (test code = 2345-7) 129 mg/dL 70-110 H Lab Interpretation (test code = Abnormal 62204-8) [facility] [id number] 09:52:45 Test Item Value Reference Range Interpretation Comments Glucose (test code = 2345-7) 129 mg/dL 70-110 H Lab Interpretation (test code = Abnormal 48460-8) [facility] [id number] 09:52:45 Test Item Value Reference Range Interpretation Comments Glucose (test code = 2345-7) 129 mg/dL 70-110 H Lab Interpretation (test code = Abnormal 68128-0) [facility] [id number] 09:52:45 Test Item Value Reference Range Interpretation Comments Glucose (test code = 2345-7) 129 mg/dL 70-110 H Lab Interpretation (test code = Abnormal 03654-5) [facility] [id number] 09:52:45 Test Item Value Reference Range Interpretation Comments Glucose (test code = 2345-7) 129 mg/dL 70-110 H Lab Interpretation (test code = Abnormal 73405-4) [facility] [id number] 09:52:45 Test Item Value Reference Range Interpretation Comments GLUCOSE RANDOM (BEAKER) (test code 129 mg/dL 70-110 H = 652) Blood gas, [id number] 09:52:44 Test Item Value Reference Range Interpretation Comments pH, Arterial (test code 7.39 7.35-7.45 = 2744-1) pCO2, Arterial (test 43 See_Comment [Autom ated code = 2018-) message] The system which generated this result transmitted reference range : 35 - 45 mm Hg. The reference range was not used to interpret this result as normal/abnormal . pO2, Arterial (test 62 See_Comment L [Automa jeff code = 2703-7) message] The system which generated this result transmitted reference range : 80 - 90 mm Hg. The reference range was not used to interpret this result as normal/abnormal . O2 Sat, Arterial (test 93.1 % 96.0-97.0 L code = 2708-6) HCO3, Arterial (test 25 mmol/L 21-29 code = 1960-4) Base Excess, Arterial -0.1 mmol/L -2.0-3.0 (test code = 1925-7) Patient Temperature 35.6 (test code = 8310-5) FIO2 (test code = 1819) 96.0 Lab Interpretation Abnormal (test code = 22008-4) [facility] [id number] 09:52:44 Test Item Value Reference Range Interpretation Comments pH, Arterial (test code 7.39 7.35-7.45 = 2744-1) pCO2, Arterial (test 43 See_Comment [Autom ated code = 2019-05) message] The system which generated this result transmitted reference range : 35 - 45 mm Hg. The reference range was not used to interpret this result as normal/abnormal . pO2, Arterial (test 62 See_Comment L [Automa jeff code = 2703-7) message] The system which generated this result transmitted reference range : 80 - 90 mm Hg. The reference range was not used to interpret this result as normal/abnormal . O2 Sat, Arterial (test 93.1 % 96.0-97.0 L code = 2708-6) HCO3, Arterial (test 25 mmol/L 21-29 code = 1960-4) Base Excess, Arterial -0.1 mmol/L -2.0-3.0 (test code = 1925-7) Patient Temperature 35.6 (test code = 8310-5) FIO2 (test code = 1819) 96 Lab Interpretation Abnormal (test code = 03953-1) [facility] [id number] 09:52:44 Test Item Value Reference Range Interpretation Comments pH, Arterial (test code 7.39 7.35-7.45 = 2744-1) pCO2, Arterial (test 43 See_Comment [Autom ated code = 2019-05) message] The system which generated this result transmitted reference range : 35 - 45 mm Hg. The reference range was not used to interpret this result as normal/abnormal . pO2, Arterial (test 62 See_Comment L [Automa jeff code = 2703-7) message] The system which generated this result transmitted reference range : 80 - 90 mm Hg. The reference range was not used to interpret this result as normal/abnormal . O2 Sat, Arterial (test 93.1 % 96.0-97.0 L code = 2708-6) HCO3, Arterial (test 25 mmol/L 21-29 code = 1960-4) Base Excess, Arterial -0.1 mmol/L -2.0-3.0 (test code = 1925-7) Patient Temperature 35.6 (test code = 8310-5) FIO2 (test code = 1819) 96 Lab Interpretation Abnormal (test code = 22700-2) [facility] [id number] 09:52:44 Test Item Value Reference Range Interpretation Comments pH, Arterial (test code 7.39 7.35-7.45 = 2744-1) pCO2, Arterial (test 43 See_Comment [Autom ated code = 2019-05) message] The system which generated this result transmitted reference range : 35 - 45 mm Hg. The reference range was not used to interpret this result as normal/abnormal . pO2, Arterial (test 62 See_Comment L [Automa jeff code = 2703-7) message] The system which generated this result transmitted reference range : 80 - 90 mm Hg. The reference range was not used to interpret this result as normal/abnormal . O2 Sat, Arterial (test 93.1 % 96.0-97.0 L code = 2708-6) HCO3, Arterial (test 25 mmol/L 21-29 code = 1960-4) Base Excess, Arterial -0.1 mmol/L -2.0-3.0 (test code = 1925-7) Patient Temperature 35.6 (test code = 8310-5) FIO2 (test code = 1819) 96 Lab Interpretation Abnormal (test code = 84674-6) [facility] [id number] 09:52:44 Test Item Value Reference Range Interpretation Comments pH, Arterial (test code 7.39 7.35-7.45 = 2744-1) pCO2, Arterial (test 43 See_Comment [Autom ated code = 2019-05) message] The system which generated this result transmitted reference range : 35 - 45 mm Hg. The reference range was not used to interpret this result as normal/abnormal . pO2, Arterial (test 62 See_Comment L [Automa jeff code = 2703-7) message] The system which generated this result transmitted reference range : 80 - 90 mm Hg. The reference range was not used to interpret this result as normal/abnormal . O2 Sat, Arterial (test 93.1 % 96.0-97.0 L code = 2708-6) HCO3, Arterial (test 25 mmol/L 21-29 code = 1960-4) Base Excess, Arterial -0.1 mmol/L -2.0-3.0 (test code = 1925-7) Patient Temperature 35.6 (test code = 8310-5) FIO2 (test code = 1819) 96 Lab Interpretation Abnormal (test code = 59537-7) [facility] [id number] 09:52:44 Test Item Value Reference Range Interpretation Comments pH, Arterial (test code 7.39 7.35-7.45 = 2744-1) pCO2, Arterial (test 43 See_Comment [Autom ated code = 2019-05) message] The system which generated this result transmitted reference range : 35 - 45 mm Hg. The reference range was not used to interpret this result as normal/abnormal . pO2, Arterial (test 62 See_Comment L [Automa jeff code = 2703-7) message] The system which generated this result transmitted reference range : 80 - 90 mm Hg. The reference range was not used to interpret this result as normal/abnormal . O2 Sat, Arterial (test 93.1 % 96.0-97.0 L code = 2708-6) HCO3, Arterial (test 25 mmol/L 21-29 code = 1960-4) Base Excess, Arterial -0.1 mmol/L -2.0-3.0 (test code = 1925-7) Patient Temperature 35.6 (test code = 8310-5) FIO2 (test code = 1819) 96 Lab Interpretation Abnormal (test code = 81738-8) [facility] [id number] 09:52:44 Test Item Value Reference Range Interpretation Comments pH, Arterial (test code 7.39 7.35-7.45 = 2744-1) pCO2, Arterial (test 43 See_Comment [Autom ated code = 2019-05) message] The system which generated this result transmitted reference range : 35 - 45 mm Hg. The reference range was not used to interpret this result as normal/abnormal . pO2, Arterial (test 62 See_Comment L [Automa jeff code = 2703-7) message] The system which generated this result transmitted reference range : 80 - 90 mm Hg. The reference range was not used to interpret this result as normal/abnormal . O2 Sat, Arterial (test 93.1 % 96.0-97.0 L code = 2708-6) HCO3, Arterial (test 25 mmol/L 21-29 code = 1960-4) Base Excess, Arterial -0.1 mmol/L -2.0-3.0 (test code = 1925-7) Patient Temperature 35.6 (test code = 8310-5) FIO2 (test code = 1819) 96 Lab Interpretation Abnormal (test code = 23639-1) [facility] [id number] 09:52:44 Test Item Value Reference Range Interpretation Comments pH, Arterial (test code 7.39 7.35-7.45 = 2744-1) pCO2, Arterial (test 43 See_Comment [Autom ated code = 2018-) message] The system which generated this result transmitted reference range : 35 - 45 mm Hg. The reference range was not used to interpret this result as normal/abnormal . pO2, Arterial (test 62 See_Comment L [Automa jeff code = 2703-7) message] The system which generated this result transmitted reference range : 80 - 90 mm Hg. The reference range was not used to interpret this result as normal/abnormal . O2 Sat, Arterial (test 93.1 % 96.0-97.0 L code = 2708-6) HCO3, Arterial (test 25 mmol/L 21-29 code = 1960-4) Base Excess, Arterial -0.1 mmol/L -2.0-3.0 (test code = 1925-7) Patient Temperature 35.6 (test code = 8310-5) FIO2 (test code = 1819) 96 Lab Interpretation Abnormal (test code = 52093-8) [facility], [id number] 09:52:44 Test Item Value Reference Range Interpretation Comments pH, Arterial (test code 7.39 7.35-7.45 = 2744-1) pCO2, Arterial (test 43 See_Comment [Autom ated code = 2019-8) message] The system which generated this result transmitted reference range : 35 - 45 mm Hg. The reference range was not used to interpret this result as normal/abnormal . pO2, Arterial (test 62 See_Comment L [Automa jeff code = 2703-7) message] The system which generated this result transmitted reference range : 80 - 90 mm Hg. The reference range was not used to interpret this result as normal/abnormal . O2 Sat, Arterial (test 93.1 % 96.0-97.0 L code = 2708-6) HCO3, Arterial (test 25 mmol/L 21-29 code = 1960-4) Base Excess, Arterial -0.1 mmol/L -2.0-3.0 (test code = 1925-7) Patient Temperature 35.6 (test code = 8310-5) FIO2 (test code = 1819) 96 Lab Interpretation Abnormal (test code = 93061-1) [facility], [id number] 09:52:44 Test Item Value Reference Range Interpretation Comments pH, Arterial (test code 7.39 7.35-7.45 = 2744-1) pCO2, Arterial (test 43 See_Comment [Autom ated code = 2019-05) message] The system which generated this result transmitted reference range : 35 - 45 mm Hg. The reference range was not used to interpret this result as normal/abnormal . pO2, Arterial (test 62 See_Comment L [Automa jeff code = 2703-7) message] The system which generated this result transmitted reference range : 80 - 90 mm Hg. The reference range was not used to interpret this result as normal/abnormal . O2 Sat, Arterial (test 93.1 % 96.0-97.0 L code = 2708-6) HCO3, Arterial (test 25 mmol/L 21-29 code = 1960-4) Base Excess, Arterial -0.1 mmol/L -2.0-3.0 (test code = 1925-7) Patient Temperature 35.6 (test code = 8310-5) FIO2 (test code = 1819) 96 Lab Interpretation Abnormal (test code = 67846-8) [facility] [id number] 09:52:44 Test Item Value Reference Range Interpretation Comments pH, Arterial (test code 7.39 7.35-7.45 = 2744-1) pCO2, Arterial (test 43 See_Comment [Autom ated code = 2019) message] The system which generated this result transmitted reference range : 35 - 45 mm Hg. The reference range was not used to interpret this result as normal/abnormal . pO2, Arterial (test 62 See_Comment L [Automa jeff code = 2703-7) message] The system which generated this result transmitted reference range : 80 - 90 mm Hg. The reference range was not used to interpret this result as normal/abnormal . O2 Sat, Arterial (test 93.1 % 96.0-97.0 L code = 2708-6) HCO3, Arterial (test 25 mmol/L 21-29 code = 1960-4) Base Excess, Arterial -0.1 mmol/L -2.0-3.0 (test code = 1925-7) Patient Temperature 35.6 (test code = 8310-5) FIO2 (test code = 1819) 96 Lab Interpretation Abnormal (test code = 21237-0) [facility] [id number] 09:52:44 Test Item Value Reference Range Interpretation Comments pH, Arterial (test code 7.39 7.35-7.45 = 2744-1) pCO2, Arterial (test 43 See_Comment [Autom ated code = 2019-05) message] The system which generated this result transmitted reference range : 35 - 45 mm Hg. The reference range was not used to interpret this result as normal/abnormal . pO2, Arterial (test 62 See_Comment L [Automa jeff code = 2703-7) message] The system which generated this result transmitted reference range : 80 - 90 mm Hg. The reference range was not used to interpret this result as normal/abnormal . O2 Sat, Arterial (test 93.1 % 96.0-97.0 L code = 2708-6) HCO3, Arterial (test 25 mmol/L 21-29 code = 1960-4) Base Excess, Arterial -0.1 mmol/L -2.0-3.0 (test code = 1925-7) Patient Temperature 35.6 (test code = 8310-5) FIO2 (test code = 1819) 96 Lab Interpretation Abnormal (test code = 26686-2) [facility] [id number] 09:52:44 Test Item Value Reference Range Interpretation Comments pH, Arterial (test code 7.39 7.35-7.45 = 2744-1) pCO2, Arterial (test 43 See_Comment [Autom ated code = 2019-) message] The system which generated this result transmitted reference range : 35 - 45 mm Hg. The reference range was not used to interpret this result as normal/abnormal . pO2, Arterial (test 62 See_Comment L [Automa jeff code = 2703-7) message] The system which generated this result transmitted reference range : 80 - 90 mm Hg. The reference range was not used to interpret this result as normal/abnormal . O2 Sat, Arterial (test 93.1 % 96.0-97.0 L code = 2708-6) HCO3, Arterial (test 25 mmol/L 21-29 code = 1960-4) Base Excess, Arterial -0.1 mmol/L -2.0-3.0 (test code = 1925-7) Patient Temperature 35.6 (test code = 8310-5) FIO2 (test code = 1819) 96 Lab Interpretation Abnormal (test code = 88655-9) [facility] gas, [id number] 09:52:44 Test Item Value Reference Range Interpretation Comments pH, Arterial (test code 7.39 7.35-7.45 = 2744-1) pCO2, Arterial (test 43 See_Comment [Autom ated code = 2019-05) message] The system which generated this result transmitted reference range : 35 - 45 mm Hg. The reference range was not used to interpret this result as normal/abnormal . pO2, Arterial (test 62 See_Comment L [Automa jeff code = 2703-7) message] The system which generated this result transmitted reference range : 80 - 90 mm Hg. The reference range was not used to interpret this result as normal/abnormal . O2 Sat, Arterial (test 93.1 % 96.0-97.0 L code = 2708-6) HCO3, Arterial (test 25 mmol/L 21-29 code = 1960-4) Base Excess, Arterial -0.1 mmol/L -2.0-3.0 (test code = 1925-7) Patient Temperature 35.6 (test code = 8310-5) FIO2 (test code = 1819) 96 Lab Interpretation Abnormal (test code = 83131-2) [facility] [id number] 09:52:44 Test Item Value Reference Range Interpretation Comments pH, Arterial (test code 7.39 7.35-7.45 = 2744-1) pCO2, Arterial (test 43 See_Comment [Autom ated code = 2019-05) message] The system which generated this result transmitted reference range : 35 - 45 mm Hg. The reference range was not used to interpret this result as normal/abnormal . pO2, Arterial (test 62 See_Comment L [Automa jeff code = 2703-7) message] The system which generated this result transmitted reference range : 80 - 90 mm Hg. The reference range was not used to interpret this result as normal/abnormal . O2 Sat, Arterial (test 93.1 % 96.0-97.0 L code = 2708-6) HCO3, Arterial (test 25 mmol/L 21-29 code = 1960-4) Base Excess, Arterial -0.1 mmol/L -2.0-3.0 (test code = 1925-7) Patient Temperature 35.6 (test code = 8310-5) FIO2 (test code = 1819) 96 Lab Interpretation Abnormal (test code = 34626-7) [facility] gas, [id number] 09:52:44 Test Item Value Reference Range Interpretation Comments pH, Arterial (test code 7.39 7.35-7.45 = 2744-1) pCO2, Arterial (test 43 See_Comment [Autom ated code = 2019-05) message] The system which generated this result transmitted reference range : 35 - 45 mm Hg. The reference range was not used to interpret this result as normal/abnormal . pO2, Arterial (test 62 See_Comment L [Automa jeff code = 2703-7) message] The system which generated this result transmitted reference range : 80 - 90 mm Hg. The reference range was not used to interpret this result as normal/abnormal . O2 Sat, Arterial (test 93.1 % 96.0-97.0 L code = 2708-6) HCO3, Arterial (test 25 mmol/L 21-29 code = 1960-4) Base Excess, Arterial -0.1 mmol/L -2.0-3.0 (test code = 1925-7) Patient Temperature 35.6 (test code = 8310-5) FIO2 (test code = 1819) 96 Lab Interpretation Abnormal (test code = 46219-3) [facility] [id number] 09:52:44 Test Item Value Reference Range Interpretation Comments pH, Arterial (test code 7.39 7.35-7.45 = 2744-1) pCO2, Arterial (test 43 See_Comment [Autom ated code = 2019-) message] The system which generated this result transmitted reference range : 35 - 45 mm Hg. The reference range was not used to interpret this result as normal/abnormal . pO2, Arterial (test 62 See_Comment L [Automa jeff code = 2703-7) message] The system which generated this result transmitted reference range : 80 - 90 mm Hg. The reference range was not used to interpret this result as normal/abnormal . O2 Sat, Arterial (test 93.1 % 96.0-97.0 L code = 2708-6) HCO3, Arterial (test 25 mmol/L -29 code = 1960-4) Base Excess, Arterial -0.1 mmol/L -2.0-3.0 (test code = 1925-7) Patient Temperature 35.6 (test code = 8310-5) FIO2 (test code = 1819) 96 Lab Interpretation Abnormal (test code = 15440-7) [facility] [id number] 09:52:44 Test Item Value Reference Range Interpretation Comments PH ARTERIAL (BEAKER) (test code = 7.39 7.35-7.45 383) PCO2 ARTERIAL (BEAKER) (test code 43 mm Hg 35-45 = 384) PO2 ARTERIAL (BEAKER) (test code 62 mm Hg 80-90 L = 385) O2 SATURATION ARTERIAL (BEAKER) 93.1 % 96.0-97.0 L (test code = 386) HCO3 ARTERIAL (BEAKER) (test code 25 mmol/L 21-29 = 388) BASE EXCESS ARTERIAL (BEAKER) -0.1 mmol/L -2.0-3.0 (test code = 387) PATIENT TEMPERATURE (BEAKER) 35.6 (test code = 1818) FIO2 (BEAKER) (test code = 1819) 96.0 HGB/HCT (H&H)-Stat [id number] 09:51:34 Test Item Value Reference Range Interpretation Comments Hemoglobin (test code = 12.2 See_Comment [Au tomated message] 786-4) The system [employer] generated this result transmitted ref erence range: 12.0 - 1 5.0 GM/DL. The refe rence range was not u sed to interpret this result as normal/abnor mal. Hematocrit (test code = 36.0 % 36.0-45.0 4544-3) Lab Interpretation (test Normal code = 25668-3) [facility] Na-Stat [id number] 09:51:34 Test Item Value Reference Range Interpretation Comments Sodium (test code = 2951-2) 137 meq/L 136-145 Lab Interpretation (test code = Normal 88463-3) [facility] [id number] 09:51:34 Test Item Value Reference Range Interpretation Comments Potassium (test code = 2823-3) 3.9 meq/L 3.6-5.5 Lab Interpretation (test code = Normal 94071-8) [facility] [id number] 09:51:34 Test Item Value Reference Range Interpretation Comments Hemoglobin (test code = 12.2 See_Comment [Au tomated message] 786-4) The system [employer] generated this result transmitted ref erence range: 12.0 - 1 5.0 GM/DL. The refe rence range was not u sed to interpret this result as normal/abnor mal. Hematocrit (test code = 36.0 % 36.0-45.0 4544-3) Lab Interpretation (test Normal code = 95334-9) [facility] Na-Stat [id number] 09:51:34 Test Item Value Reference Range Interpretation Comments Sodium (test code = 2951-2) 137 meq/L 136-145 Lab Interpretation (test code = Normal 80267-8) [facility] [id number] 09:51:34 Test Item Value Reference Range Interpretation Comments Potassium (test code = 2823-3) 3.9 meq/L 3.6-5.5 Lab Interpretation (test code = Normal 04184-3) [facility] [id number] 09:51:34 Test Item Value Reference Range Interpretation Comments Hemoglobin (test code = 12.2 See_Comment [Au tomated message] 786-4) The system [employer] generated this result transmitted ref erence range: 12.0 - 1 5.0 GM/DL. The refe rence range was not u sed to interpret this result as normal/abnor mal. Hematocrit (test code = 36.0 % 36.0-45.0 4544-3) Lab Interpretation (test Normal code = 30876-8) [facility] Na-Stat [id number] 09:51:34 Test Item Value Reference Range Interpretation Comments Sodium (test code = 2951-2) 137 meq/L 136-145 Lab Interpretation (test code = Normal 42761-3) [id number] 09:51:34 Test Item Value Reference Range Interpretation Comments Potassium (test code = 2823-3) 3.9 meq/L 3.6-5.5 Lab Interpretation (test code = Normal 20297-0) [facility] [id number] 09:51:34 Test Item Value Reference Range Interpretation Comments Hemoglobin (test code = 12.2 See_Comment [Au tomated message] 786-4) The system [employer] generated this result transmitted ref erence range: 12.0 - 1 5.0 GM/DL. The refe rence range was not u sed to interpret this result as normal/abnor mal. Hematocrit (test code = 36.0 % 36.0-45.0 4544-3) Lab Interpretation (test Normal code = 85156-0) [facility] Na-Stat [id number] 09:51:34 Test Item Value Reference Range Interpretation Comments Sodium (test code = 2951-2) 137 meq/L 136-145 Lab Interpretation (test code = Normal 56557-2) [facility] [id number] 09:51:34 Test Item Value Reference Range Interpretation Comments Potassium (test code = 2823-3) 3.9 meq/L 3.6-5.5 Lab Interpretation (test code = Normal 22099-4) [facility] [id number] 09:51:34 Test Item Value Reference Range Interpretation Comments Hemoglobin (test code = 12.2 See_Comment [Au tomated message] 786-4) The system [employer] generated this result transmitted ref erence range: 12.0 - 1 5.0 GM/DL. The refe rence range was not u sed to interpret this result as normal/abnor mal. Hematocrit (test code = 36.0 % 36.0-45.0 4544-3) Lab Interpretation (test Normal code = 18385-8) [facility] Na-Stat [id number] 09:51:34 Test Item Value Reference Range Interpretation Comments Sodium (test code = 2951-2) 137 meq/L 136-145 Lab Interpretation (test code = Normal 95971-8) [facility] [id number] 09:51:34 Test Item Value Reference Range Interpretation Comments Potassium (test code = 2823-3) 3.9 meq/L 3.6-5.5 Lab Interpretation (test code = Normal 14593-8) [facility] [id number] 09:51:34 Test Item Value Reference Range Interpretation Comments Hemoglobin (test code = 12.2 See_Comment [Au tomated message] 786-4) The system [employer] generated this result transmitted ref erence range: 12.0 - 1 5.0 GM/DL. The refe rence range was not u sed to interpret this result as normal/abnor mal. Hematocrit (test code = 36.0 % 36.0-45.0 4544-3) Lab Interpretation (test Normal code = 30772-6) [facility] Na-Stat [id number] 09:51:34 Test Item Value Reference Range Interpretation Comments Sodium (test code = 2951-2) 137 meq/L 136-145 Lab Interpretation (test code = Normal 49546-5) [facility] [id number] 09:51:34 Test Item Value Reference Range Interpretation Comments Potassium (test code = 2823-3) 3.9 meq/L 3.6-5.5 Lab Interpretation (test code = Normal 87700-4) [facility] [id number] 09:51:34 Test Item Value Reference Range Interpretation Comments Hemoglobin (test code = 12.2 See_Comment [Au tomated message] 786-4) The system [employer] generated this result transmitted ref erence range: 12.0 - 1 5.0 GM/DL. The refe rence range was not u sed to interpret this result as normal/abnor mal. Hematocrit (test code = 36.0 % 36.0-45.0 4544-3) Lab Interpretation (test Normal code = 50063-9) [facility] Na-Stat [id number] 09:51:34 Test Item Value Reference Range Interpretation Comments Sodium (test code = 2951-2) 137 meq/L 136-145 Lab Interpretation (test code = Normal 69103-7) [facility] [id number] 09:51:34 Test Item Value Reference Range Interpretation Comments Potassium (test code = 2823-3) 3.9 meq/L 3.6-5.5 Lab Interpretation (test code = Normal 02996-9) [facility] [id number] 09:51:34 Test Item Value Reference Range Interpretation Comments Hemoglobin (test code = 12.2 See_Comment [Au tomated message] 786-4) The system [employer] generated this result transmitted ref erence range: 12.0 - 1 5.0 GM/DL. The refe rence range was not u sed to interpret this result as normal/abnor mal. Hematocrit (test code = 36.0 % 36.0-45.0 4544-3) Lab Interpretation (test Normal code = 70175-7) [facility] Na-Stat [id number] 09:51:34 Test Item Value Reference Range Interpretation Comments Sodium (test code = 2951-2) 137 meq/L 136-145 Lab Interpretation (test code = Normal 75908-0) [facility] [id number] 09:51:34 Test Item Value Reference Range Interpretation Comments Potassium (test code = 2823-3) 3.9 meq/L 3.6-5.5 Lab Interpretation (test code = Normal 15187-4) [facility] [id number] 09:51:34 Test Item Value Reference Range Interpretation Comments Hemoglobin (test code = 12.2 See_Comment [Au tomated message] 786-4) The system [employer] generated this result transmitted ref erence range: 12.0 - 1 5.0 GM/DL. The refe rence range was not u sed to interpret this result as normal/abnor mal. Hematocrit (test code = 36.0 % 36.0-45.0 4544-3) Lab Interpretation (test Normal code = 54520-1) [facility] [id number] 09:51:34 Test Item Value Reference Range Interpretation Comments Sodium (test code = 2951-2) 137 meq/L 136-145 Lab Interpretation (test code = Normal 87482-2) [facility] [id number] 09:51:34 Test Item Value Reference Range Interpretation Comments Potassium (test code = 2823-3) 3.9 meq/L 3.6-5.5 Lab Interpretation (test code = Normal 62084-3) [facility] [id number] 09:51:34 Test Item Value Reference Range Interpretation Comments Hemoglobin (test code = 12.2 See_Comment [Au tomated message] 786-4) The system [employer] generated this result transmitted ref erence range: 12.0 - 1 5.0 GM/DL. The refe rence range was not u sed to interpret this result as normal/abnor mal. Hematocrit (test code = 36.0 % 36.0-45.0 4544-3) Lab Interpretation (test Normal code = 86332-3) [facility] [id number] 09:51:34 Test Item Value Reference Range Interpretation Comments Sodium (test code = 2951-2) 137 meq/L 136-145 Lab Interpretation (test code = Normal 47256-9) [facility] [id number] 09:51:34 Test Item Value Reference Range Interpretation Comments Potassium (test code = 2823-3) 3.9 meq/L 3.6-5.5 Lab Interpretation (test code = Normal 88995-2) [facility] [id number] 09:51:34 Test Item Value Reference Range Interpretation Comments Hemoglobin (test code = 12.2 See_Comment [Au tomated message] 786-4) The system [employer] generated this result transmitted ref erence range: 12.0 - 1 5.0 GM/DL. The refe rence range was not u sed to interpret this result as normal/abnor mal. Hematocrit (test code = 36.0 % 36.0-45.0 4544-3) Lab Interpretation (test Normal code = 95788-6) [facility] Na-Stat [id number] 09:51:34 Test Item Value Reference Range Interpretation Comments Sodium (test code = 2951-2) 137 meq/L 136-145 Lab Interpretation (test code = Normal 21451-5) [facility] [id number] 09:51:34 Test Item Value Reference Range Interpretation Comments Potassium (test code = 2823-3) 3.9 meq/L 3.6-5.5 Lab Interpretation (test code = Normal 24566-4) [facility] [id number] 09:51:34 Test Item Value Reference Range Interpretation Comments Hemoglobin (test code = 12.2 See_Comment [Au tomated message] 786-4) The system [employer] generated this result transmitted ref erence range: 12.0 - 1 5.0 GM/DL. The refe rence range was not u sed to interpret this result as normal/abnor mal. Hematocrit (test code = 36.0 % 36.0-45.0 4544-3) Lab Interpretation (test Normal code = 77732-2) [facility] Na-Stat [id number] 09:51:34 Test Item Value Reference Range Interpretation Comments Sodium (test code = 2951-2) 137 meq/L 136-145 Lab Interpretation (test code = Normal 58372-3) [facility] [id number] 09:51:34 Test Item Value Reference Range Interpretation Comments Potassium (test code = 2823-3) 3.9 meq/L 3.6-5.5 Lab Interpretation (test code = Normal 75498-6) [facility] [id number] 09:51:34 Test Item Value Reference Range Interpretation Comments Hemoglobin (test code = 12.2 See_Comment [Au tomated message] 786-4) The system [employer] generated this result transmitted ref erence range: 12.0 - 1 5.0 GM/DL. The refe rence range was not u sed to interpret this result as normal/abnor mal. Hematocrit (test code = 36.0 % 36.0-45.0 4544-3) Lab Interpretation (test Normal code = 53968-0) [facility] Na-Stat [id number] 09:51:34 Test Item Value Reference Range Interpretation Comments Sodium (test code = 2951-2) 137 meq/L 136-145 Lab Interpretation (test code = Normal 92991-6) [facility] [id number] 09:51:34 Test Item Value Reference Range Interpretation Comments Potassium (test code = 2823-3) 3.9 meq/L 3.6-5.5 Lab Interpretation (test code = Normal 64328-1) [facility] [id number] 09:51:34 Test Item Value Reference Range Interpretation Comments Hemoglobin (test code = 12.2 See_Comment [Au tomated message] 786-4) The system [employer] generated this result transmitted ref erence range: 12.0 - 1 5.0 GM/DL. The refe rence range was not u sed to interpret this result as normal/abnor mal. Hematocrit (test code = 36.0 % 36.0-45.0 4544-3) Lab Interpretation (test Normal code = 02732-4) [facility] [id number] 09:51:34 Test Item Value Reference Range Interpretation Comments Sodium (test code = 2951-2) 137 meq/L 136-145 Lab Interpretation (test code = Normal 18923-8) [facility] [id number] 09:51:34 Test Item Value Reference Range Interpretation Comments Potassium (test code = 2823-3) 3.9 meq/L 3.6-5.5 Lab Interpretation (test code = Normal 39377-8) [facility] [id number] 09:51:34 Test Item Value Reference Range Interpretation Comments Hemoglobin (test code = 12.2 See_Comment [Au tomated message] 786-4) The system [employer] generated this result transmitted ref erence range: 12.0 - 1 5.0 GM/DL. The refe rence range was not u sed to interpret this result as normal/abnor mal. Hematocrit (test code = 36.0 % 36.0-45.0 4544-3) Lab Interpretation (test Normal code = 10639-6) [facility] Na-Stat [id number] 09:51:34 Test Item Value Reference Range Interpretation Comments Sodium (test code = 2951-2) 137 meq/L 136-145 Lab Interpretation (test code = Normal 91740-2) [facility] [id number] 09:51:34 Test Item Value Reference Range Interpretation Comments Potassium (test code = 2823-3) 3.9 meq/L 3.6-5.5 Lab Interpretation (test code = Normal 34732-7) [facility] [id number] 09:51:34 Test Item Value Reference Range Interpretation Comments Hemoglobin (test code = 12.2 See_Comment [Au tomated message] 786-4) The system [employer] generated this result transmitted ref erence range: 12.0 - 1 5.0 GM/DL. The refe rence range was not u sed to interpret this result as normal/abnor mal. Hematocrit (test code = 36.0 % 36.0-45.0 4544-3) Lab Interpretation (test Normal code = 94565-8) [facility] [id number] 09:51:34 Test Item Value Reference Range Interpretation Comments Sodium (test code = 2951-2) 137 meq/L 136-145 Lab Interpretation (test code = Normal 93354-7) [facility] [id number] 09:51:34 Test Item Value Reference Range Interpretation Comments Potassium (test code = 2823-3) 3.9 meq/L 3.6-5.5 Lab Interpretation (test code = Normal 70806-6) [facility] [id number] 09:51:34 Test Item Value Reference Range Interpretation Comments Hemoglobin (test code = 12.2 See_Comment [Au tomated message] 135-4) The system [employer] generated this result transmitted ref erence range: 12.0 - 1 5.0 GM/DL. The refe rence range was not u sed to interpret this result as normal/abnor mal. Hematocrit (test code = 36.0 % 36.0-45.0 4544-3) Lab Interpretation (test Normal code = 35190-1) [facility] [id number] 09:51:34 Test Item Value Reference Range Interpretation Comments Sodium (test code = 2951-2) 137 meq/L 136-145 Lab Interpretation (test code = Normal 30499-7) [facility] [id number] 09:51:34 Test Item Value Reference Range Interpretation Comments Potassium (test code = 2823-3) 3.9 meq/L 3.6-5.5 Lab Interpretation (test code = Normal 86974-9) [facility] [id number] 09:51:34 Test Item Value Reference Range Interpretation Comments SODIUM (BEAKER) (test code = 381) 137 meq/L 136-145 POTASSIUM-STAT [id number] 09:51:34 Test Item Value Reference Range Interpretation Comments POTASSIUM (BEAKER) (test code = 3.9 meq/L 3.6-5.5 379) HGB/HCT (H&H) - STAT [id number] 09:51:34 Test Item Value Reference Range Interpretation Comments HEMOGLOBIN (BEAKER) (test code = 12.2 GM/DL 12.0-15.0 410) HEMATOCRIT (BEAKER) (test code = 36.0 % 36.0-45.0 411) BLOOD GAS, [id number] 08:58:30 Test Item Value Reference Range Interpretation Comments PH ARTERIAL (BEAKER) (test code = 7.30 7.35-7.45 L 383) PCO2 ARTERIAL (BEAKER) (test code 55 mm Hg 35-45 H = 384) PO2 ARTERIAL (BEAKER) (test code 64 mm Hg 80-90 L = 385) O2 SATURATION ARTERIAL (BEAKER) 91.9 % 96.0-97.0 L (test code = 386) HCO3 ARTERIAL (BEAKER) (test code 27 mmol/L 21-29 = 388) BASE EXCESS ARTERIAL (BEAKER) -0.8 mmol/L -2.0-3.0 (test code = 387) PATIENT TEMPERATURE (BEAKER) 35.5 (test code = 1818) FIO2 (BEAKER) (test code = 1819) 96.0 HGB/HCT (H&H) - STAT [id number] 08:58:30 Test Item Value Reference Range Interpretation Comments HEMOGLOBIN (BEAKER) (test code = 11.7 GM/DL 12.0-15.0 L 410) HEMATOCRIT (BEAKER) (test code = 34.0 % 36.0-45.0 L 411) CALCIUM, [id number] 08:58:13 Test Item Value Reference Range Interpretation Comments CALCIUM IONIZED (BEAKER) (test 1.18 mmol/L 1.12-1.27 code = 698) PH, BLOOD (BEAKER) (test code = 7.28 1810) SODIUM NA-STAT [id number] 08:57:16 Test Item Value Reference Range Interpretation Comments SODIUM (BEAKER) (test code = 381) 138 meq/L 136-145 POTASSIUM-STAT [id number] 08:57:16 Test Item Value Reference Range Interpretation Comments POTASSIUM (BEAKER) (test code = 3.7 meq/L 3.6-5.5 379) GLUCOSE-STAT [id number] 08:57:15 Test Item Value Reference Range Interpretation Comments GLUCOSE RANDOM (BEAKER) (test code 110 mg/dL 70-110 = 652) COVID [id number] 13:09:38 Test Item Value Reference Range Interpretation Comments SARS COVID ANTIGEN Negative Negative (test code = 29796-7) GRACIELA (test code = GRACIELA) The [employer] SARS Antigen test does not differentiate between SARS-CoV and SARS-CoV-2. The test has been authorized by the FDA under an EUA for use by authorized laboratories. Lab Interpretation Normal (test code = 72027-6) [facility] [id number] 13:09:38 Test Item Value Reference Range Interpretation Comments SARS COVID ANTIGEN Negative Negative (test code = 17000-9) GRACIELA (test code = GRACIELA) The [employer] SARS Antigen test does not differentiate between SARS-CoV and SARS-CoV-2. The test has been authorized by the FDA under an EUA for use by authorized laboratories. Lab Interpretation Normal (test code = 45882-6) [facility] [id number] 13:09:38 Test Item Value Reference Range Interpretation Comments SARS COVID ANTIGEN Negative Negative (test code = 56316-9) GRACIELA (test code = GRACIELA) The [employer] SARS Antigen test does not differentiate between SARS-CoV and SARS-CoV-2. The test has been authorized by the FDA under an EUA for use by authorized laboratories. Lab Interpretation Normal (test code = 71539-9) [facility] [id number] 13:09:38 Test Item Value Reference Range Interpretation Comments SARS COVID ANTIGEN Negative Negative (test code = 84065-4) GRACIELA (test code = GRACIELA) The [employer] SARS Antigen test does not differentiate between SARS-CoV and SARS-CoV-2. The test has been authorized by the FDA under an EUA for use by authorized laboratories. Lab Interpretation Normal (test code = 68770-3) [facility] [id number] 13:09:38 Test Item Value Reference Range Interpretation Comments SARS COVID ANTIGEN Negative Negative (test code = 04190-1) GRACIELA (test code = GRACIELA) The [employer] SARS Antigen test does not differentiate between SARS-CoV and SARS-CoV-2. The test has been authorized by the FDA under an EUA for use by authorized laboratories. Lab Interpretation Normal (test code = 81515-6) [facility] [id number] 13:09:38 Test Item Value Reference Range Interpretation Comments SARS COVID ANTIGEN Negative Negative (test code = 42760-1) GRACIELA (test code = GRACIELA) The [employer] SARS Antigen test does not differentiate between SARS-CoV and SARS-CoV-2. The test has been authorized by the FDA under an EUA for use by authorized laboratories. Lab Interpretation Normal (test code = 57979-2) [facility] [id number] 13:09:38 Test Item Value Reference Range Interpretation Comments SARS COVID ANTIGEN Negative Negative (test code = 79797-7) GRACIELA (test code = GRACIELA) The [employer] SARS Antigen test does not differentiate between SARS-CoV and SARS-CoV-2. The test has been authorized by the FDA under an EUA for use by authorized laboratories. Lab Interpretation Normal (test code = 32465-9) [facility] [id number] 13:09:38 Test Item Value Reference Range Interpretation Comments SARS COVID ANTIGEN Negative Negative (test code = 79699-7) GRACIELA (test code = GRACIELA) The [employer] SARS Antigen test does not differentiate between SARS-CoV and SARS-CoV-2. The test has been authorized by the FDA under an EUA for use by authorized laboratories. Lab Interpretation Normal (test code = 80408-6) [facility] [id number] 13:09:38 Test Item Value Reference Range Interpretation Comments SARS COVID ANTIGEN Negative Negative (test code = 70653-1) GRACIELA (test code = GRACIELA) The [employer] SARS Antigen test does not differentiate between SARS-CoV and SARS-CoV-2. The test has been authorized by the FDA under an EUA for use by authorized laboratories. Lab Interpretation Normal (test code = 42683-7) [facility] [id number] 13:09:38 Test Item Value Reference Range Interpretation Comments SARS COVID ANTIGEN Negative Negative (test code = 60855-0) GRACIELA (test code = GRACIELA) The [employer] SARS Antigen test does not differentiate between SARS-CoV and SARS-CoV-2. The test has been authorized by the FDA under an EUA for use by authorized laboratories. Lab Interpretation Normal (test code = 74172-0) [facility] [id number] 13:09:38 Test Item Value Reference Range Interpretation Comments SARS COVID ANTIGEN Negative Negative (test code = 57970-1) GRACIELA (test code = GRACIELA) The [employer] SARS Antigen test does not differentiate between SARS-CoV and SARS-CoV-2. The test has been authorized by the FDA under an EUA for use by authorized laboratories. Lab Interpretation Normal (test code = 19561-9) [facility] [id number] 13:09:38 Test Item Value Reference Range Interpretation Comments SARS COVID ANTIGEN Negative Negative (test code = 49899-0) GRACIELA (test code = GRACIELA) The [employer] SARS Antigen test does not differentiate between SARS-CoV and SARS-CoV-2. The test has been authorized by the FDA under an EUA for use by authorized laboratories. Lab Interpretation Normal (test code = 95259-5) [facility] [id number] 13:09:38 Test Item Value Reference Range Interpretation Comments SARS COVID ANTIGEN Negative Negative (test code = 49623-7) GRACIELA (test code = GRACIELA) The [employer] SARS Antigen test does not differentiate between SARS-CoV and SARS-CoV-2. The test has been authorized by the FDA under an EUA for use by authorized laboratories. Lab Interpretation Normal (test code = 22334-5) [facility] [id number] 13:09:38 Test Item Value Reference Range Interpretation Comments SARS COVID ANTIGEN Negative Negative (test code = 87274-0) GRACIELA (test code = GRACIELA) The [employer] SARS Antigen test does not differentiate between SARS-CoV and SARS-CoV-2. The test has been authorized by the FDA under an EUA for use by authorized laboratories. Lab Interpretation Normal (test code = 11850-7) [facility] [id number] 13:09:38 Test Item Value Reference Range Interpretation Comments SARS COVID ANTIGEN Negative Negative (test code = 61082-1) GRACIELA (test code = GRACIELA) The [employer] SARS Antigen test does not differentiate between SARS-CoV and SARS-CoV-2. The test has been authorized by the FDA under an EUA for use by authorized laboratories. Lab Interpretation Normal (test code = 54313-9) [facility] Center[facility]OV[facility] [id number] 13:09:38 Test Item Value Reference Range Interpretation Comments SARS COVID ANTIGEN Negative Negative (test code = 90420-1) GRACIELA (test code = GRACIELA) The [employer] SARS Antigen test does not differentiate between SARS-CoV and SARS-CoV-2. The test has been authorized by the FDA under an EUA for use by authorized laboratories. Lab Interpretation Normal (test code = 43101-4) [facility] [id number] 13:09:38 Test Item Value Reference Range Interpretation Comments SARS COVID ANTIGEN Negative Negative (test code = 76935-8) GRACIELA (test code = GRACIELA) The [employer] SARS Antigen test does not differentiate between SARS-CoV and SARS-CoV-2. The test has been authorized by the FDA under an EUA for use by authorized laboratories. Lab Interpretation Normal (test code = 09447-8) [facility] [id number] 13:09:38 Test Item Value Reference Range Interpretation Comments SARS COVID ANTIGEN (test code = Negative Negative 19639040) The [employer] SARS Antigen test does not differentiate between SARS-CoV and SARS-CoV-2.The test has been authorized by the FDA under an EUA for use by authorized laboratories.COMPREHENSIVE METABOLIC [id number] 12:13:02 Test Item Value Reference Range Interpretation Comments TOTAL PROTEIN 6.9 gm/dL 6.0-8.3 (BEAKER) (test code = 770) ALBUMIN (BEAKER) 4.2 g/dL 3.5-5.0 (test code = 1145) ALKALINE 57 U/L 40-150 PHOSPHATASE (BEAKER) (test code = 346) BILIRUBIN TOTAL 0.7 mg/dL 0.2-1.2 (BEAKER) (test code = 377) SODIUM (BEAKER) 143 meq/L 136-145 (test code = 381) POTASSIUM (BEAKER) 4.5 meq/L 3.5-5.1 (test code = 379) CHLORIDE (BEAKER) 108 meq/L 98-107 H (test code = 382) CO2 (BEAKER) (test 26 meq/L 22-29 code = 355) BLOOD UREA 19 mg/dL 7-21 NITROGEN (BEAKER) (test code = 354) CREATININE 0.84 mg/dL 0.57-1.25 (BEAKER) (test code = 358) GLUCOSE RANDOM 95 mg/dL 70-105 (BEAKER) (test code = 652) CALCIUM (BEAKER) 9.7 mg/dL 8.4-10.2 (test code = 697) AST (SGOT) 17 U/L 5-34 (BEAKER) (test code = 353) ALT (SGPT) 16 U/L 6-55 (BEAKER) (test code = 347) EGFR (BEAKER) 71 Interpretatio n of eGFR (test code = 1092) mL/min/1.[address] age Description sq m Result G1 Cheryl l or high >=90 G2 Mildly decreased 60-89 G3a Mild ly to moderately 45-5 9 G3b Moderately to s everely 30-44 G4 Severl y decreased 15-29 G5 Kidney failure <15Reported eGF R is based on the CKD-EPI 2021 equation that d oes not use a race coefficientEsti mated GFR is not as accur ate as Creatinine Abbey adames in predicting glom erular filtration rate . Estimated GFR is not appl icable for dialysis patien ts [employer] Technician ID - PIAYA LPT/[id number] 11:50:53 Test Item Value Reference Range Interpretation Comments PROTIME (BEAKER) (test 14.8 seconds 11.9-14.2 H code = 759) INR (BEAKER) (test 1.23 See_Comment [Automat ed code = 370) message] The sy stem which generated this result transmitted reference range : <=5.90. The reference range was not used to interpret this result as normal/abnormal . PARTIAL THROMBOPLASTIN 29.8 seconds 22.5-36.0 TIME (BEAKER) (test code = 760) RECOMMENDED COUMADIN/WARFARIN INR THERAPY RANGESSTANDARD DOSE: 2.0 - 3.0 Includes: PROPHYLAXIS for venous thrombosis, systemic embolization; TREATMENT for venous thrombosis and/or pulmonary embolus.HIGH RISK: Target INR is 2.5-3.5 for patients with mechanical heart valves.CBC W/PLT COUNT & AUTO [id number] 11:41:33 Test Item Value Reference Range Interpretation Comments WHITE BLOOD CELL COUNT (BEAKER) 5.7 K/ L 3.5-10.5 (test code = 775) RED BLOOD CELL COUNT (BEAKER) 4.15 M/ L 3.93-5.22 (test code = 761) HEMOGLOBIN (BEAKER) (test code = 12.6 GM/DL 11.2-15.7 410) HEMATOCRIT (BEAKER) (test code = 40.6 % 34.1-44.9 411) MEAN CORPUSCULAR VOLUME (BEAKER) 97.8 fL 79.4-94.8 H (test code = 753) MEAN CORPUSCULAR HEMOGLOBIN 30.4 pg 25.6-32.2 (BEAKER) (test code = 751) MEAN CORPUSCULAR HEMOGLOBIN CONC 31.0 GM/DL 32.2-35.5 L (BEAKER) (test code = 752) RED CELL DISTRIBUTION WIDTH 13.8 % 11.7-14.4 (BEAKER) (test code = 412) PLATELET COUNT (BEAKER) (test 235 K/CU MM 150-450 code = 756) MEAN PLATELET VOLUME (BEAKER) 11.4 fL 9.4-12.3 (test code = 754) NUCLEATED RED BLOOD CELLS 0 /100 WBC 0-0 (BEAKER) (test code = 413) NEUTROPHILS RELATIVE PERCENT 65 % (BEAKER) (test code = 429) LYMPHOCYTES RELATIVE PERCENT 19 % (BEAKER) (test code = 430) MONOCYTES RELATIVE PERCENT 12 % (BEAKER) (test code = 431) EOSINOPHILS RELATIVE PERCENT 3 % (BEAKER) (test code = 432) BASOPHILS RELATIVE PERCENT 1 % (BEAKER) (test code = 437) NEUTROPHILS ABSOLUTE COUNT 3.73 K/ L 1.56-6.13 (BEAKER) (test code = 670) LYMPHOCYTES ABSOLUTE COUNT 1.06 K/ L 1.18-3.74 L (BEAKER) (test code = 414) MONOCYTES ABSOLUTE COUNT (BEAKER) 0.67 K/ L 0.24-0.36 H (test code = 415) EOSINOPHILS ABSOLUTE COUNT 0.16 K/ L 0.04-0.36 (BEAKER) (test code = 416) BASOPHILS ABSOLUTE COUNT (BEAKER) 0.05 K/ L 0.01-0.08 (test code = 417) IMMATURE GRANULOCYTES-RELATIVE 1 % 0-1 PERCENT (BEAKER) (test code = 2801) RAD, CHEST, 2 [id number] 11:38:00Reason for exam:->pre opShould this be performed at the bedside?->No [facility] 1945 Sex: FFINAL REPORT HISTORY: Preoperative examination COMPARISON: 06/06/2022 FINDINGS: Postoperative changes and areas of scarring the lower right hemithorax are without appreciable changeas are curvilinear opacities at the left lung base. No pleural effusions or pneumothorax. The heart shadow is normal in size. The thoracic aorta is tortuous and calcified, unchanged. Degenerative changes are present in the spine. There are surgical clips in the abdomen. IMPRESSION: No change in the radiographic appearance of the chest since the prior study of 06/06/2022. No evidence of pneumonia. Signed: Chon Monroyeport Verified Date/Time: 07/11/2022 11:38:58 Reading Location: [facility] Radiology Reading Room CT, BIOPSY, [id number] 09:05:00Interval enlargement of RUL lung nodule with history of lung cancerImages in [facility] epicReason for Exam:->Right upper lobe lung noduleReason for Exam:->History of lung cancer in 2014 and 2019, s[facility] 1945 Sex: FFINAL REPORT CT-guided lung biopsy Indication:Right upper lobe lung noduleHistory of lung cancer in 2014 and 2019, s/p resection Consent: The risks, benefits, and alternatives to the procedure were discussed with the patient. The patient expressed understanding and informed written consent was obtained. Time out: A pre-procedure time out was performed in order to confirm the appropriate site of the procedure. SEDATION: Moderate sedation was administered 0.5 mg of Versed and 25 of fentanyl IV was used for moderate sedation monitored under my direction. Total intraservice time ofsedation was 25 minutes. The patient's vital signs were monitored throughout the procedure and recorded in the patient's medical record by the nurse sedation. Local anesthesia: 5 cc of 2% lidocaine Technique: this exam was performed according to our departmental dose- optimization program which includes automated exposure control, adjustment of the mA and/or kV according to patient size and/or use of iterative reconstruction technique. The patient's CT is reviewed, and the lung abnormality is localized. With the patient right anterior oblique, the area is scanned, without intravenous contrast administration. After the skin over the area is marked, the skin is prepped and draped in the usual sterilemanner. After local anesthesia is achieved, a 19-gauge coaxial guide needle is advanced into the abnormality under CT guidance.A single 20-gauge core biopsy was obtained, after which there was hemorrhage obscured in the field of view. Postprocedure CT evaluation of the area reveals no evidence of pneumothorax or hemorrhage. Patient disposition: To recovery for radiographs Impression: Successful and un complicated CT-guided right upper lobe core biopsy is performed. Signed: Anil Ann MDReport Verified Date/Time: 06/11/2022 09:05:26 TISSUE [id number] 10:49:14 Surgical Pathology Report Case: [id number] Authorizing Provider: Светлана Garza Collected: 06/06/2022 12:42 PM Ordering Location: [facility] PERIOPERATIVE Received: 06/06/2022 02:18 PM SERVICES Pathologist: Willian Restrepo MD Specimen: Lung, Right Upper Lobe A. LUNG, RIGHT UPPER LOBE, CT GUIDED NEEDLE CORE BIOPSY: - ADENOCARCINOMA CONSISTENT WITH PULMONARY PRIMARY Signing Pathologist Direct Phone Line: [phone] signed by Willian Restrepo MD on 06/10/2022 at 10:49 AMImmunostains for TTF-1 and Napsin-A are positive, while VALERIO-3 and p40 are negative, supporting the above cash gnosis.[id number] y.o. female Stage I Left lower lobe lung adenocarcinoma, s/p left lower lobectomy for a pT1bN0 adenocarcinoma on 07/27/20 (final path pT1b N0), with history of RLL pT1a N0 adenocarcinoma (2cm) and RLL pT1a N0 carcinoid tumorlet , s/p RLL wedge resection on 03/14/2015, Left RCC s/p nephrectomy in 1998, Tonsillar cancer in 2011, s/p chemo xrt, breast cancer in 05/2016, s/p lumpectomy followed by XRT. Noted to have bilateral pulmonary nodules (8mm RUL and GGO in SAN[facility]EE[facility]) since 09/2020. No presenting with enlarging RUL nodule.A. Lung, Right Upper Lobe.Received in formalin labeled with the patient's name, medical record number and "lung, RUL" is a 1.0 cm in length.-[place] soft tissuecore submitted in toto in A1.LIBORIO Kowalski, PA (ASCP)cmPerformed.The interpretation of this case included the use of immunohistochemistry or special stains.Control Slides Examined: In-house known positive controls were evaluated along with the test tissue. These control slides run alongside of the patients sample show appropriate staining. Internal positive and negative controls when available are evaluated Immunohistochemistry technical testing was performed at [facility], Pathology Laboratory where it was developed and its performance characteristics were determined. Ithas not been cleared or approved by the U.S. Food and Drug Administration. The FDA has determined that such clearance or approval is not necessary. The test is used for clinical purposes. It should notbe regarded as investigational or for research. This laboratory is certified under the Clinical Laboratory Improvement Amendments of 1988 (CLIA-88) as qualified to perform high complexity clinical laboratory testing.RAD, CHEST, 1 VIEW, NON [id number] 16:21:00Reason for exam:->3 hours post RUL biopsyShould this be performed at the bedside?->Yes [facility] 1945 Sex: FFINAL REPORT TECHNIQUE: Frontal view of the chest. INDICATION: 3 hours post RULbiopsy COMPARISON:Earlier the same day DISCUSSION:Limited evaluation due to portable technique. Lines and hardware: NoneHeart and mediastinum: Stable.Lungs and pleura: No focal airspace consolidation. No pleural effusion. No pneumothorax.Soft tissues and bones: No acute abnormality. IMPRESSION:Negative for pneumothorax status post right upper lobe biopsy. Signed: Anil Ann MDReport Verified Date/Time: 06/06/2022 16:21:01 Reading Location: [address] Body Reading Room RAD, CHEST, 1 VIEW, NON [id number] 13:49:00Reason for exam:->post RUL biopsyShould this be performed at the bedside?->[facility] 1945 Sex: FFINAL REPORT INDICATION: post RUL biopsy COMPARISON: 09/12/2020 TECHNIQUE: Single frontal view of the chest. FINDINGS: Lines, tubes, and devices: None.Lungs and pleura: Postoperative changes in the right lower lung. No effusion. No pneumothorax identified.Heart and mediastinum: Normal heart size. Unremarkable mediastinal contours.Osseous structures: No acute abnormality. Mild spondylosis and facet arthropathy are present within the spine. Other: Surgical clips in the left upper abdomen. IMPRESSION: No acute intrathoracic abnormality. Postoperative changes in the right lower lung. Signed: Fernanda Nelson MDReport Verified Date/Time: 06/06/2022 13:49:39 Reading Location: [facility] Radiology Reading Room BASIC METABOLIC [id number] 10:01:31 Test Item Value Reference Range Interpretation Comments SODIUM (BEAKER) 141 meq/L 136-145 (test code = 381) POTASSIUM 4.4 meq/L 3.5-5.1 (BEAKER) (test code = 379) CHLORIDE (BEAKER) 108 meq/L 98-107 H (test code = 382) CO2 (BEAKER) 26 meq/L 22-29 (test code = 355) BLOOD UREA 21 mg/dL 7-21 NITROGEN (BEAKER) (test code = 354) CREATININE 0.80 mg/dL 0.57-1.25 (BEAKER) (test code = 358) GLUCOSE RANDOM 99 mg/dL 70-105 (BEAKER) (test code = 652) CALCIUM (BEAKER) 9.4 mg/dL 8.4-10.2 (test code = 697) EGFR (BEAKER) 75 Interpretatio n of eGFR (test code = mL/min/1.73 values Stage De scription 1092) sq m Result G1 Cheryl l or high >=90 G2 Mildly decreased 60-89 G3a Mildl y to moderately 45-5 9 G3b Moderately to s everely 30-44 G4 Severl y decreased 15-29 G5 Kidney failure <15Reported eGF R is based on the CKD-EPI 2020 equation that d oes not use a race coefficientEsti mated GFR is not as accur ate as Creatinine Abbey rosangela in predicting glom erular filtration rate . Estimated GFR is not appl icable for dialysis patien ts Biofuels Processing Technician ID - MINOR [id number] 09:51:26 Test Item Value Reference Range Interpretation Comments PARTIAL THROMBOPLASTIN TIME 32.4 seconds 22.5-36.0 (BEAKER) (test code = 760) PROTHROMBIN TIME/[id number] 09:50:44 Test Item Value Reference Range Interpretation Comments PROTIME (BEAKER) 14.1 seconds 11.9-14.2 (test code = 759) INR (BEAKER) (test 1.11 See_Comment [Automat ed message] code = 370) The system [employer] generated this result transmitted ref erence range: <=5.90. The reference range was not used to int erpret this result as normal/abnormal . RECOMMENDED COUMADIN/WARFARIN INR THERAPY RANGESSTANDARD DOSE: 2.0 - 3.0 Includes: PROPHYLAXIS for venous thrombosis, systemic embolization; TREATMENT for venous thrombosis and/or pulmonary embolus.HIGH RISK: Target INR is 2.5-3.5 for patients with mechanical heart valves.CBC W/PLT COUNT & AUTO [id number] 09:45:22 Test Item Value Reference Range Interpretation Comments WHITE BLOOD CELL COUNT (BEAKER) 5.5 K/ L 3.5-10.5 (test code = 775) RED BLOOD CELL COUNT (BEAKER) 4.42 M/ L 3.93-5.22 (test code = 761) HEMOGLOBIN (BEAKER) (test code = 13.5 GM/DL 11.2-15.7 410) HEMATOCRIT (BEAKER) (test code = 40.8 % 34.1-44.9 411) MEAN CORPUSCULAR VOLUME (BEAKER) 92.3 fL 79.4-94.8 (test code = 753) MEAN CORPUSCULAR HEMOGLOBIN 30.5 pg 25.6-32.2 (BEAKER) (test code = 751) MEAN CORPUSCULAR HEMOGLOBIN CONC 33.1 GM/DL 32.2-35.5 (BEAKER) (test code = 752) RED CELL DISTRIBUTION WIDTH 13.9 % 11.7-14.4 (BEAKER) (test code = 412) PLATELET COUNT (BEAKER) (test 208 K/CU MM 150-450 code = 756) MEAN PLATELET VOLUME (BEAKER) 11.0 fL 9.4-12.3 (test code = 754) NUCLEATED RED BLOOD CELLS 0 /100 WBC 0-0 (BEAKER) (test code = 413) NEUTROPHILS RELATIVE PERCENT 69 % (BEAKER) (test code = 429) LYMPHOCYTES RELATIVE PERCENT 16 % (BEAKER) (test code = 430) MONOCYTES RELATIVE PERCENT 12 % (BEAKER) (test code = 431) EOSINOPHILS RELATIVE PERCENT 2 % (BEAKER) (test code = 432) BASOPHILS RELATIVE PERCENT 1 % (BEAKER) (test code = 437) NEUTROPHILS ABSOLUTE COUNT 3.78 K/ L 1.56-6.13 (BEAKER) (test code = 670) LYMPHOCYTES ABSOLUTE COUNT 0.90 K/ L 1.18-3.74 L (BEAKER) (test code = 414) MONOCYTES ABSOLUTE COUNT (BEAKER) 0.65 K/ L 0.24-0.36 H (test code = 415) EOSINOPHILS ABSOLUTE COUNT 0.13 K/ L 0.04-0.36 (BEAKER) (test code = 416) BASOPHILS ABSOLUTE COUNT (BEAKER) 0.03 K/ L 0.01-0.08 (test code = 417) IMMATURE GRANULOCYTES-RELATIVE 0 % 0-1 PERCENT (BEAKER) (test code = 2801) COVID [id number] 13:09:34 Test Item Value Reference Range Interpretation Comments SARS COVID ANTIGEN (test code = Negative Negative [id number]) The QuickVue SARS Antigen test does not differentiate between SARS-CoV and SARS-CoV-2.The test has been authorized by the FDA under an EUA for use by authorized laboratories.The Quick[employer]ue SARS Antigen test does not differentiate between SARS-CoV and SARS-CoV-2.The test has been authorized by the FDA under an EUA for use by authorized laboratories.CT, CHEST, WITHOUT IV [id number] 10:45:00Unlisted Reason for Exam - Click Yes and Enter Reason Below->Yes Unlisted Reason for Exam->c78.02 [facility] 1945 Sex: FFINAL REPORT CT, CHEST, WITHOUT IV CONTRAST INDICATION: Unlisted Reason for Examc78.02 COMPARISON: CT chest 04/03/2022 TECHNIQUE: CT, CHEST, WITHOUT IV CONTRAST. This exam was performed according to our departmental dose optimization program which includes automated exposure control, adjustment of the mA and/or kV according to patient size and/or use of iterative reconstruction technique. FINDINGS: Lack of intravenous contrast compromises evaluation of perfusion and for isodense lesions. Lungs: Partial lobectomy changes in the right lower lobe with architectural distortion and asuture line. A solid 13 x 7 mm pulmonary nodule in the anterior right upper lobe, was 11 x 6 mm. A groundglass 5 mm nodule at the right lung apex, no convincing change. A 9 mm groundglass nodule at theleft lung apex, no convincing change. A 5 mm groundglass nodule at the left lung apex, no convincingchange. Multiple solid nodules clustered in the lingula, measuring up to 6 mm. Status post left lower lobectomy. Mild subpleural cystic changes in the posterior left upper lobeCentral airways: Patent.Pleura: No pleural effusion or pneumothorax.Lymph nodes: UnremarkableCardiovascular: Small pericardialeffusion. Moderate to severe atherosclerotic disease including coronary arteries.Thyroid gland: Visualized portion unremarkableEsophagus: UnremarkableIncluded upper abdomen: Unremarkable.Chest wall: Unremarkable.Bones: Mild degenerative changes of the visible spine. 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 Diffuse osteopenia. IMPRESSION: 1.A solid 13 x 7 mm anterior right upper lobe pulmonary nodule has increased in size since 04/03/2022. Recommend tissue sampling. 2.A cluster of solid nodules in the lingula, measuring up to 6 mm, no convincing change, probably postinfectious/postinflammatory. 3.Groundglass nodules in the bilateral lung apices, probably preinvasive adenocarcinoma lesions (AAH versus AIS), continued attention on follow-up studies. 4.Status post partial right lower lobectomy and left lower lobectomy. Signed: João Anderson [facility] Verified Date/Time: 05/26/2022 10:45:24 CT, CHEST, WITHOUT IV [id number] 10:24:00Unlisted Reason for Exam - Click Yes and Enter Reason Below->YesUnlisted Reason for Exam->Malignant neoplasm of lower lobe, left bronchus or lung [facility] : 1945 Sex: FFINAL REPORT HISTORY: Unlisted Reason for ExamMalignant neoplasm of lower lobe,left bronchus or lung COMPARISON : CT chest with contrast from 06/04/2021 Technique : Multiple axial images of the chest were performed from the lung apices to the lung bases without the administration of IV contrast. Images were presented in both the lung and soft tissue windows. Coronal sagittal refor mats were reviewed. This exam was performed according to our departmental dose optimization program which includes automated exposure control, adjustment of the mA and/or kV according to patient size and/or use of iterative reconstructive technique. Findings:The thyroid and remaining visualized structu res within the base of the neck demonstrate no significant abnormalities. The thoracic aorta is normal course and caliber with atherosclerotic calcifications within its course and branch vessels including the coronary arteries. The heart is non-enlarged. Stable small pericardial effusion noted. There is no abnormal activity, mediastinal, or hilar lymph node enlargement. Again identified are postsurgical changes from right lower lobe wedge resection and left lower lobe lobectomy. Stable 5 mm groundglass nodule identified within the right apex (axial image 13). There has been mild interval enlargement of a lobulated pulmonary nodule within the right upper lobe now measuring 11 mm, previously 7 mm. Stable 8 mm groundglass nodule identified within the left apex (axial image 21). There has been interval development of a new pulmonary nodule within the left upper lobe measuring 8 mm (axial image 49). Additional subcentimeter clustered pulmonary nodules identified within the left upper lobe/lingula (axial image 60). Stable appearing scarring/atelectasis noted within the right lower lobe. There is no evidence for pneumothorax or pleural effusion. Limited views of the upper abdomen demonstrate no significant abnormalities. The osseous structures demonstrate no evidence for acute fracture or destructive process. The extra thoracic soft tissues are unremarkable. IMPRESSION:Stable postsurgical changes from right lower lobe wedge resection and left lower lobectomy. Interval development of clustered subcentimeter pulmonary nodules within the left upper lobe/lingula measuring up to 8 mm. Findings may reflect a small airways infectious/inflammatory process. Short-term follow-up examination (3 months) is recommended. Mild interval enlargement of a nodule within the right upper lobe as detailed above. Remaining index nodules are unchanged in size/appearance. Signed: Jean Rydereport Verified Date/Time: 04/07/2022 10:24:45 Reading Location: [facility] Reading Room - [place] [address] [id number] MR, MRI BREAST, WITHOUT / WITH IV CONTRAST, [id number] 12:03:00Unlisted Reason for Exam - Click Yes and Enter Reason Below->YesUnlisted Reason for Exam->Monoallelic mutation of CHEK2 gene in female patientAnesthesia:->None [facility] : 1945 Sex: FMRN#: [id number] - MR, MRI BREAST, WITHOUT / WITH IV CONTRAST, BILATERAL BREAST MRI OF BOTH BREASTS: 2CLINICAL: High risk screening. Comparison is made to exams dated: 01/09/2021 breast MRI - [facility] [place] and 07/25/2019 mammogram. Multi-sequence images of both breasts were obtained without and with 6 cc intravenous gadolinium. DynaCAD was used. 1. There is scattered fibroglandular tissue with mild background parenchymal enhancement. There are scattered non-specific enhancing foci bilaterally. 2. Patient is status post left breast lumpectomy. There are no suspicious enhancing masses or areas of non-mass enhancement. 3. No axillary or internal mammary lymphadenopathy. Limited visualization of the thorax and upper abdomen is unremarkable. IMPRESSION: BENIGN There is no MRI evidence of malignancy. A 1 year screening mammogram is recommended. The exam was reviewed by a staff physician. Dr. Lance Tamayo,ct/: 12:03:51 Normal Exam MRI BI-RADS: [id number], CTANGIO [id number] 13:25:00 Bilat carotid and subclavian bruits. Known Left SC stenosisUnlisted Reason for Exam - Click Yes and Enter Reason Below->YesUnlisted Reason for Exam- >R09.89 (ICD-10-CM) - Arterial bruit;I10 (ICD-10-CM) - Essential hypertension;I63.542 (ICD-10-CM) - Cerebral infarction involving left cerebellar artery (HCCode) ([facility])Anesthesia:->None [facility] : 1945 Sex: FFINAL REPORT EXAM: CT, CTANGIO BRAIN, CT, CAROTID, ANGIO INDICATION: Unlisted Reason for ExamR09.89 (ICD-10-CM) - Arterial bruit;I10 (ICD-10-CM) - Essential hypertension;I63.542 (ICD-10-CM) - Cerebral infarction involving left cerebellar artery TECHNIQUE: Helical CT of the head without IV contrast. Postcontrast CTA of the head and CTA of the neck with IV contrast. Multiplanar reconstructed images. 3D reconstructions with MIP images were performed. This exam was performed according to our departmental dose-optimization program, which includes automated exposure control, adjustment of the mA and/or kV according to patient size and/or use of iterative reconstruction technique. [facility]: 09/12/2020 MRI, 10/24/2020 CTA, 06/04/2021 CT chest FINDINGS:CT HEAD: Parenchyma: No infarction. No hemorrhage. No mass or mass effect. Extra-axial Collection: None Ventricular System: Normal Paranasal Sinuses: Predominantly clear Tympanomastoid Cavities: Normal Other: Prior left lens surgery CTA HEAD: Anterior Circulation:Right intracranial internal carotid artery (ICA): Atherosclerotic changes without significant narrowing. Right anterior cerebral artery (KIMBERLEY): NormalRight middle cerebral artery (MCA): Normal Left intracranial internal carotid artery (ICA): Atherosclerotic changes without significant narrowing. Left anterior cerebral artery (KIMBERLEY): NormalLeft middle cerebral artery (MCA): Normal Anterior communicating artery (AComm): Present with a third A2 segment arising from the anterior communicating artery, normal variant.Posterior communicating arteries (PComm): Present bilaterally.Posterior Circulation:Right posterior cerebral artery (WASH TANK TENDER): Hypoplastic P1 segment with the remainder of the right WASH TANK TENDER supplied by the right posterior communicating artery.Left posterior cerebral artery (WASH TANK TENDER): Normal Right vertebral artery (VA): NormalLeft vertebral artery (VA): Hypoplastic without focal stenosisBasilar artery (BA): Normal Other: Normal Dural Venous Sinuses: Normal CTA NECK:Aortic arch and proximal great vessels: Atherosclerotic changes with fibrofatty plaque resulting in moderate stenosis of the left subclavian artery proximal to the origin of the left vertebral artery. This is unchanged compared to previous. Right carotid arterial system: Moderate (55%) internal carotid artery narrowing significant atherosclerotic calcifications and fibrofatty plaque at the proximal aspect of the right ICA. There is medialized retropharyngeal course of the right ICA, as before.Left carotid arterial system: There is atherosclerotic calcifications at the carotid bulb without luminal narrowing.Right vertebral artery: Minimal atherosclerotic calcifications at the V1 origin without significant stenosis.Left vertebral artery: Diffusely hypoplastic without focal stenosis. Where applicable, evaluation of internal carotid artery (ICA) stenosis was performed using NASCET-like criteria, where the site of greatest stenosis is compared to the diameter of the ICA distal to the stenosis at a point where the ICA middleton become parallel. Neck Soft Tissues: Unremarkable Osseous Structures: No acute osseous abnormality Included Lung Apices: There is a partially imaged right upper lobe pulmonary nodule that is 0.9 cm diameter, previously this nodule was subsolid with approximate diameter of 0.7 cm. Additional few other groundglass nodules are unchanged. IMPRESSION: 1. No acute intracranial abnormality onnoncontrast CT of the head.2. No large vessel cut off or hemodynamically significant stenosis on CTAof the head.3. Moderate (55%) atherosclerotic stenosis of the right cervical ICA.4. Moderate atherosclerotic stenosis of the left subclavian artery proximal to the origin of vertebral artery unchanged compared to previous.5.Partially imaged 0.9 cm solid pulmonary nodule in the right upper lobe is increased compared to 06/04/21. Recommend further evaluation with dedicated CT of the chest. If there is persistent clinical concern for intracranial pathology, MR examination is recommended for further characterization. Signed: Dallas Mueller MDReport Verified Date/Time: 12/30/2021 13:25:53 CT, CAROTID, [id number] 13:25:00Bilat carotid and subclavian bruits. Known Left SC stenosisUnlisted Reason for Exam - Click Yes and Enter Reason Below->YesUnlisted Reason for Exam->R09.89 (ICD-10-CM) - Arterial bruit;I10 (ICD-10-CM) - Essential hypertension;I63.542 (ICD-10-CM) - Cerebral infarction involving left cerebellar artery (HCCode) ([facility]) [facility] 1945 Sex: FFINAL REPORT EXAM: CT, CTANGIO BRAIN, CT, CAROTID, ANGIO INDICATION: Unlisted Reason for ExamR09.89 (ICD-10-CM) - Arterial bruit;I10 (ICD-10-CM) - Essential hypertension;I63.542 (ICD-10-CM) - Cerebral infarction involving left cerebellar artery TECHNIQUE: Helical CT of the head without IV contrast. Postcontrast CTA of the head and CTA of the neck with IV contrast. Multiplanar reconstructed images. 3D reconstructions with MIP images were performed. This exam was performed according to our departmental dose-optimization program, which includes automated exposure control, adjustment of the mA and/or kV according to patient size and/or use of iterative reconstruction technique. [facility]: 09/12/2020 MRI, 10/24/2020 CTA, 06/04/2021 CT chest FINDINGS:CT HEAD: Parenchyma: No infarction. No hemorrhage. No mass or mass effect. Extra-axial Collection: None Ventricular System: Normal Paranasal Sinuses: Predominantly clear Tympanomastoid Cavities: Normal Other: Prior left lens surgery CTA HEAD: Anterior Circulation:Right intracranial internal carotid artery (ICA): Atherosclerotic changes without significant narrowing. Right anterior cerebral artery (KIMBERLEY): NormalRight middle cerebral artery (MCA): Normal Left intracranial internal carotid artery (ICA): Atherosclerotic changes without significant narrowing. Left anterior cerebral artery (KIMBERLEY): NormalLeft middle cerebral artery (MCA): Normal Anterior communicating artery (AComm): Present with a third A2 segment arising from the anterior communicating artery, normal variant.Posterior communicating arteries (PComm): Present bilaterally.Posterior Circulation:Right posterior cerebral artery (WASH TANK TENDER): Hypoplastic P1 segment with the remainder of the right WASH TANK TENDER supplied by the right posterior communicating artery.Left posterior cerebral artery (WASH TANK TENDER): Normal Right vertebral artery (VA): NormalLeft vertebral artery (VA): Hypoplastic without focal stenosisBasilar artery (BA): Normal Other: Normal Dural Venous Sinuses: Normal CTA NECK:Aortic arch and proximal great vessels: Atherosclerotic changes with fibrofatty plaque resulting in moderate stenosis of the left subclavian artery proximal to the origin of the left vertebral artery. This is unchanged compared to previous. Right carotid arterial system: Moderate (55%) internal carotid artery narrowing significant atherosclerotic calcifications and fibrofatty plaque at the proximal aspect of the right ICA. There is medialized retropharyngeal course of the right ICA, as before.Left carotid arterial system: There is atherosclerotic calcifications at the carotid bulb without luminal narrowing.Right vertebral artery: Minimal atherosclerotic calcifications at the V1 origin without significant stenosis.Left vertebral artery: Diffusely hypoplastic without focal stenosis. Where applicable, evaluation of internal carotid artery (ICA) stenosis was performed using NASCET-like criteria, where the site of greatest stenosis is compared to the diameter of the ICA distal to the stenosis at a point where the ICA middleton become parallel. Neck Soft Tissues: Unremarkable Osseous Structures: No acute osseous abnormality Included Lung Apices: There is a partially imaged right upper lobe pulmonary nodule that is 0.9 cm diameter, previously this nodule was subsolid with approximate diameter of 0.7 cm. Additional few other groundglass nodules are unchanged. IMPRESSION: 1. No acute intracranial abnormality onnoncontrast CT of the head.2. No large vessel cut off or hemodynamically significant stenosis on CTAof the head.3. Moderate (55%) atherosclerotic stenosis of the right cervical ICA.4. Moderate atherosclerotic stenosis of the left subclavian artery proximal to the origin of vertebral artery unchanged compared to previous.5.Partially imaged 0.9 cm solid pulmonary nodule in the right upper lobe is increased compared to 06/04/21. Recommend further evaluation with dedicated CT of the chest. If there is persistent clinical concern for intracranial pathology, MR examination is recommended for further characterization. Signed: Dallas Mueller MDReport Verified Date/Time: 12/30/2021 13:25:53 [id number] 11:27:43 Test Item Value Reference Range Interpretation Comments POC-Creatinine (test 1.0 mg/dL 0.6-1.3 : TESTE D AT [facility] 6720 code = 52403-4) [place], [address]: Biofuels Processing Technician/Techni kathy ID = [id number] for Ayse-Bidend i, [place] POC-EGFR (test code 54 mL/min/1.73M2 = 33086-3) [facility]-[id number] 11:27:43 Test Item Value Reference Range Interpretation Comments POC-Creatinine (test 1.0 mg/dL 0.6-1.3 : TESTE D AT [facility] 6720 code = 71335-6) [place], [address]: Biofuels Processing Technician/Techni kathy ID = [id number] for Ayse-Bidend i, Raven POC-EGFR (test code 54 mL/min/1.73M2 = 18550-8) [id number] 11:27:43 Test Item Value Reference Range Interpretation Comments POC-Creatinine (test 1.0 mg/dL 0.6-1.3 : TESTE D AT [place] [address] code = 20728-7) [place], [address]: Biofuels Processing Technician/Techni kathy ID = [id number] for Ayse-Bidend i, Raven POC-EGFR (test code 54 mL/min/1.73M2 = 92896-7) [id number] 11:27:43 Test Item Value Reference Range Interpretation Comments POC-Creatinine (test 1.0 mg/dL 0.6-1.3 : TESTE D AT [place] [address] code = 39993-2) [place], [address]: Biofuels Processing Technician/Techni kathy ID = [id number] for Ayse-Bidend i, Raven POC-EGFR (test code 54 mL/min/1.73M2 = 46216-7) [facility]inoRqcbrhkepj7444-81-23 11:27:43 Test Item Value Reference Range Interpretation Comments POC-Creatinine (test 1.0 mg/dL 0.6-1.3 : TESTE D AT [place] [address] code = 32296-6) [place], [address]: Biofuels Processing Technician/Techni kathy ID = [id number] for Ayse-Bidend i, Raven POC-EGFR (test code 54 mL/min/1.73M2 = 18806-5) [facility]Caxzbzjrfj5743-88-28 11:27:43 Test Item Value Reference Range Interpretation Comments POC-Creatinine (test 1.0 mg/dL 0.6-1.3 : TESTE D AT [place] [address] code = 04730-0) [place], [address]: Biofuels Processing Technician/Techni kathy ID = [id number] for Ayse-Bidend i, Raven POC-EGFR (test code 54 mL/min/1.73M2 = 71780-5) [facility]inoVomdibwrtl5124-12-64 11:27:43 Test Item Value Reference Range Interpretation Comments POC-Creatinine (test 1.0 mg/dL 0.6-1.3 : TESTE D AT [place] [address] code = 53079-6) [place], [address]: Biofuels Processing Technician/Techni kathy ID = [id number] for Ayse-Bidend i, Raven POC-EGFR (test code 54 mL/min/1.73M2 = 66727-2) [facility]Xriorijnfr0487-15-49 11:27:43 Test Item Value Reference Range Interpretation Comments POC-Creatinine (test 1.0 mg/dL 0.6-1.3 : TESTE D AT [place] [address] code = 11139-5) [place], [address]: Biofuels Processing Technician/Techni kathy ID = [id number] for Ayse-Bidend i, Raven POC-EGFR (test code 54 mL/min/1.73M2 = 99059-0) [facility]-Ewgcnwhrqm3064-34-21 11:27:43 Test Item Value Reference Range Interpretation Comments POC-Creatinine (test 1.0 mg/dL 0.6-1.3 : TESTE D AT [place] [address] code = 99981-9) [place], [address]: Biofuels Processing Technician/Techni kathy ID = [id number] for Ayse-Bidend i, Raven POC-EGFR (test code 54 mL/min/1.73M2 = 81737-5) [facility]-[id number] 11:27:43 Test Item Value Reference Range Interpretation Comments POC-CREATININE 1.0 mg/dL 0.6-1.3 : TESTED AT [facility] ([facility]) ([facility] [facility] code = 1859) [place], [address]: Biofuels Processing Technician/Techni kathy ID = [id number] for Ayse-Bidend i, Raven POC-EGFR (BEAKER) 54 mL/min/1.73M2 (test code = 1860) TISSUE [id number] 09:30:00Surgical Pathology Report Case: [id number] Authorizing Provider: Lee Cruz, Collected: 08/15/2021 01:40 PM Ordering Location: [facility] Received: 08/16/2021 08:26 AM SERVICES Pathologist: Dannielle Spicer MD Specimens: A) - Polyp, Colon - Right/Ascending, taken by cold snare B) - Polyp, Colon - Transverse, taken by alise potter C) - Polyp, Colon - Sigmoid, x 2 taken by cold snare A. COLON POLYP, RIGHT ASCENDING COLON, BIOPSY: - PIECES OF TUBULAR ADENOMAB. COLON POLYP, TRANSVERSE COLON, BIOPSY: - TUBULAR ADENOMAC. COLON POLYP, SIGMOID COLON, BIOPSY: - PIECES OF TUBULAR ADENOMACC/pl Signing Pathologist Direct Phone Line: [phone] signed by Dannielle Spicre MD on 08/21/2021 at 9:29 [id number] for colon cancerA. Right/ascending colon B. Transverse colonC. Sigmoid colonA. Received in formalin labeled with the patient's name, medical record number and "polyp, colonright/ascending" are multiple pale alcala tissue fragments ranging from 0.2 to 0.7 cm in greatest dimension. The specimen is filtered and submitted in toto in A1. MIGDALIA Vanegas. Received informalin labeled with the patient's name, medical record number and "polyp, colontransverse" is a 0.4 x 0.3 x 0.3 cm alcala tissue fragment. The specimen is filtered and submitted in toto in B1. SILVIA Vanegas. Received in formalin labeled with the patient's name, medical record number and "polyp, colonsigmoid" multiple alcala tissue fragments ranging from 0.2 to 0.8 cm in greatest dimension. Thespecimen is filtered and submitted in toto in cassette C1. 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 Prior history of renal cell carcinoma 1998, tonsillar cancer 2011, and left breast cancer 2015. COMPARISON: CT chest 02/11/2021, PET/CT 03/12/2021, CT chest 10/17/2020, 11/23/2018 TECHNIQUE: Chest was scanned utilizing a multidetector helical scanner from the lung apex through the level of the adrenal glands after administration of IV contrast. Coronal and sagittal reformations were obtained. IV CONTRAST: 100 mL of Isovue-300 ORAL CONTRAST: None COMPLICATIONS: None RADIATION DOSE: Total DLP: 204.6mGy*cm Estimated effective dose: (DLP x 0.015 x size factor) mSv CTDIvol has been reviewed. It is below the limits set by the Radiation Protocol Committee (RPC). FINDINGS: LINES/ TUBES: None. LUNGS ANDAIRWAYS: Status post right lower lobe wedge resection and left lower lobe lobectomy for removal of ad enocarcinoma. Few groundglass and solid subcentimeter pulmonary nodules remain stable since at [id number] but one of then increased when compared to 2018, for example: *Right apical groundglass 5 mm nodule in on series 2, image 17, stable since 2018. *Partially lobulated 7 mm solid pulmonary nodule inthe right upper lobe on series 2, image 31 have not significantly changed since 06/04/2019 which measures 6 mm but increase in size from 3 mm and density when compared to 05/12/2018. *Left apical 8 mm groundglass pulmonary nodule on series 2, image 18, stable since 05/23/2020. No new suspicious pulmonary nodules. Stable bibasilar atelectasis in both lung bases. Airways are normal. PLEURA: The pleural spaces are clear. HEART AND MEDIASTINUM: The thyroid gland is normal. No mediastinal, hilar or axillary lymphadenopathy. Biatrial enlargement. Trace pericardial effusion. Moderate coronary artery calcifications. The thoracic aorta is normal in size and associated with mild scattered atherosclerotic calcifications. Mild atherosclerotic calcifications of the proximal arch branch vessels. The main pulmonaryartery normal in size, measuring 2.7 cm in diameter. UPPER ABDOMEN: Left nephrectomy. Atherosclerotic calcifications of the partially visualized abdominal aorta without aneurysm. BONES: Moderate multilevel degenerative changes of the thoracic spine. SOFT TISSUES: Unremarkable. IMPRESSION: 1.Status post right lower lobe wedge resection and left lower lobe lobectomy for removal of adenocarcinoma. 2.Fewgroundglass and solid subcentimeter pulmonary nodules remain stable since at least 2019 but one of then increased when compared to 2018, measuring now 7 mm compared to 3 mm on 05/12/2018. 3.Otherwise, no new suspicious nodules or lymphadenopathy in the chest. Signed: Amee Nunes MDReport Verified Date/Time: 06/04/2021 13:47:25 Reading Location: [facility] Reading Room [address] [place] [address] [id number] 11:10:00 Test Item Value Reference Range Interpretation Comments POC-CREATININE 1.1 mg/dL 0.6-1.3 : TESTED AT [facility] ([facility]) (test [address] [facility] code = 1859) [facility] [address]: Biofuels Processing Technician/Techni kathy ID = [id number] for [facility] POC-EGFR 48 mL/min/1.73M2 ([facility]) (test code = 1860) RAD, BONE DENSITY [id number] 11:24:00Reason for Exam:->Osteopenia of lumbar spineSAN [facility]Name: [facility] : 1945 Sex: FFINAL REPORT DEXA scan History: Post menopausal patient, screening for osteoporosis Comparison: none Findings: Lumbar Spine:BMD: 1.237 g/cm\\S\\2T score: 0.5Z score: 2.3 Left FemoralNeck:BMD: 0.691 g/cm\\S\\2T score: -2.5Z score: -0.4 Right Femoral Neck:BMD: 0.638 g/cm\\S\\2T score: -2.9Z score: -0.8 Impression: Osteoporosis of bilateral femoral necks. Normal bone mineral density in the lumbar spine. Diagnostic criteria for osteoporosisBMD: Bone mineral density Normal: BMD measurement less than one standard deviation from young adult populationOsteopenia: BMD measurement between 1 and 2.5 standard deviationsOsteoporosis: BMD measurement greater than 2.5 standard deviationsSevere osteoporosis: Osteoporosis and one or more fragility fractures Signed: Luda Wu Verified Date/Time: 05/10/2021 11:24:44 Reading Location: [facility] Radiology Reading Room PET/CT, SKULL BASE TO MID-THIGH [id number] 10:51:00 Unlisted Reason for Exam - Click Yes and Enter Reason Below->YesUnlisted Reason for Exam->lungca [facility] : 1945 Sex: FFINAL REPORT PROCEDURE: FDG PET/CT for Oncology CPT CODE: 24804 TUMOR TYPE: Lung adenocarcinoma C78.02 HISTORY: 76-year-old female with lung adenocarcinoma diagnosed 2020 status post right lower lobe wedge resection and left lower lobe lobectomy. Prior history of renal cell carcinoma 1998, tonsillar cancer 2011, and left breast cancer 2015. INDICATION: FDG PET/CT was obtained for subsequent tumor evaluation. COMPARISON: FDG PET/CT 06/05/2020 PROTOCOL: 8.9 mCi of F-18 fluorodeoxyglucose (FDG) was injected intravenously via right antecubital fossa. Serum glucose was 96 mg/dL prior to injection. Images were begun 86 minutes after injection and included the skull base to the proximal thighs. Limited low-dose CT images were also obtained for attenuation correction and anatomic correlation of PET scan findings. Radiographic contrast was not administered. FINDINGS: Head and Neck: No abnormal FDG activity within the visualized brain, orbits, paranasal sinuses, pharyngeal soft tissues, and thyroid gland. No FDG-avid cervical lymph nodes. Chest: Postsurgical changes from right lowerlobe wedge resection and left lower lobe lobectomy. No FDG-avid pulmonary nodules or airspace opacities. No FDG-avid mediastinal, hilar, or axillary lymph nodes. No significant interval change of the partially calcified soft tissue density in the outer quadrant of the left breast associated with scarring of the surrounding tissue and overlying skin which continues to to have low-grade FDG activity (SUV 1.1, previously 1.5). Abdomen/Pelvis: Status post left nephrectomy with stable compensatory hypertrophy of the right kidney. Stable benign cyst in the left lobe of the liver. No abnormal FDG activitywithin the liver, gallbladder, spleen, pancreas, adrenals, and bowel. No FDG-avid mesenteric or retroperitoneal lymph nodes. No abnormal FDG activity within the pelvis. No FDG-avid pelvic or inguinal lymph nodes. Musculoskeletal: No FDG-avid skeletal lesions. Circulatory: Moderate calcification of theaorta and bilateral iliac branches and mild to moderate coronary artery calcification. IMPRESSION: 1.Status post right lower lobe wedge resection and left lower lobe lobectomy. The left lower pulmonarynodule identified on the study of 06/05/2020 is no longer present consistent with interval surgery. There is no current evidence of active pulmonary neoplasm and no evidence of distant disease. 2.Stablepostsurgical changes in the upper outer quadrant of the left breast, unchanged from the previous study.3.Left nephrectomy.4.ASCVD Signed: Gray Championeport Verified Date/Time: 03/13/2021 10:51:26 Reading Location: [address] [address] Reading Room POCT-GLUCOSE [id number] 13:13:00 Test Item Value Reference Range Interpretation Comments POC-GLUCOSE METER 96 mg/dL 70-110 : TESTED A [facility] (BEAKER) (test code = [place], 1538) [address]: Biofuels Processing Technician/Techni kathy ID = [id number] for Florentino Johnson Basic Metabolic Panel (NA, K, CL, CO2, GLUCOSE, BUN, CREATININE, CA)2021-03-04 23:50:34 Test Item Value Reference Range Interpretation Comments NA (test code = 138 mmol/L 135-145 3520110272) K (test code = 4.2 mmol/L 3.5-5.0 8608186446) CL (test code = 106 mmol/L 98-108 8666869118) CO2 TOTAL (test code = 21 mmol/L 23-31 L 9745153352) AGAP (test code = 2-16 1864894319) BUN (test code = 31 mg/dL 7-23 H 6633676353) GLUCOSE (test code = 94 mg/dL 70-110 0369100130) CREATININE (test code = 0.91 mg/dL 0.50-1.04 9219186488) CALCIUM (test code = 10.0 mg/dL 8.6-10.6 9723752647) eGFR (test code = mL/min/1.73m2 7213537520) GRACIELA (test code = GRACIELA) Association of Glomerular Filtration Rate (GFR) and Staging of Kidney Disease* + --+ --+ ------+| GFR (mL/min/1.73 m2) ?| With Kidney Damage ?| ?Without Kidney Damage+ --------+ --------+ +| ?>90 ?| ?Stage one ?| ? Normal ?+ ---+ ---+ -------+| ?60-89 ?| ?Stage two ?| ? Decreased GFR ? + --+ --+ ------+| ?30-59 ?| ?Stage three ?| ? Stage three ? + --+ --+ ------+| ?15-29 ?| ?Stage four ? | ? Stage four ?+ ---+ ---+ -------+| ?<15 (or dialysis) ? ?| ?Stage five ? | ? Stage five ?+ ---+ ---+ -------+ *Each stage assumes the associated GFR level has been in effect for at least three months. ?Stages 1 to 5, with or without kidney disease, indicate chronic kidney disease. Notes: Determination of stages one and two (with eGFR >59mL/min/1.73 m2) requires estimation of kidney damage for at least three months as defined by structural or functional abnormalities of the kidney, manifested by either:Pathological abnormalities or Markers of kidney damage (including abnormalities in the composition of the blood or urine or abnormalities in imaging tests). Lab Interpretation Abnormal (test code = 60514-9) [facility] (ALB, T.PRO, BILI T, BU/BC, ALT, AST, ALK PHOS)2021-03-04 23:50:34 Test Item Value Reference Range Interpretation Comments TOTAL BILI (test code = 6723815852) 0.6 mg/dL 0.1-1.1 BILI UNCON (test code = 7956410810) 0.5 mg/dL 0.1-1.1 BILI CONJ (test code = 2552946514) 0.0 mg/dL 0.0-0.3 T PROTEIN (test code = 2136113149) 7.0 g/dL 6.3-8.2 ALBUMIN (test code = 1804617864) 4.5 g/dL 3.5-5.0 ALK PHOS (test code = 7298773007) 49 U/L 34-122 ALTv (test code = 1742-6) 22 U/L 5-35 AST(SGOT) (test code = 6260593863) 33 U/L 13-40 Lab Interpretation (test code = Normal 15283-2) [facility]lakeCBC with [id number] 23:37:51 Test Item Value Reference Range Interpretation Comments WBC (test code = See_Comment [Automated message] 6690-2) The system [employer] generated this result transmitted ref erence range: 4.30 - 1 1.10 10*3/?L. The re ference range was not u sed to interpret this result as normal/abnor mal. RBC (test code = See_Comment [Automated message] 789-8) The system [employer] generated this result transmitted ref erence range: 3.93 - 5 .25 10*6/?L. The re ference range was not u sed to interpret this result as normal/abnor mal. HGB (test code = 13.6 g/dL 11.6-15.0 718-7) HCT (test code = 41.2 % 35.7-45.2 4544-3) MCV (test code = 93.6 fL 80.6-95.5 787-2) MCH (test code = 30.9 pg 25.9-32.8 785-6) MCHC (test code = 33.0 g/dL 31.6-35.1 786-4) RDW-SD (test code 47.7 fL 39.0-49.9 = 57481-8) RDW-CV (test code 13.9 % 12.0-15.5 = 788-0) PLT (test code = See_Comment [Automated message] 777-3) The system [employer] generated this result transmitted ref erence range: 166 - 35 8 10*3/?L. The re ference range was not u sed to interpret this result as normal/abnor mal. MPV (test code = 11.4 fL 9.5-12.9 36283-3) NRBC/100 WBC (test See_Comment [Automat ed message] code = 1279352462) The syste [employer] which generated this result transmitted ref erence range: 0.0 - 10 .0 /100 WBCs. The refer ence range was not u sed to interpret this result as normal/abnor mal. NRBC x10^3 (test <0.01 See_Comment [Automated message] code = 1467572512) The syste m which generated this result transmitted ref erence range: 10*3/?L. The reference range was not used to interpr et this result as normal/abnormal . GRAN MAT (NEUT) % 62.2 % (test code = 770-8) IMM GRAN % (test 0.30 % code = 3803484930) LYMPH % (test code 21.0 % = 736-9) MONO % (test code 13.0 % = 5905-5) EOS % (test code = 2.8 % 713-8) BASO % (test code 0.7 % = 706-2) GRAN MAT 4.17 10*3/uL 1.88-7.09 x10^3(ANC) (test code = 1809530431) IMM GRAN x10^3 <0.03 0.00-0.06 (test code = 2602216311) LYMPH x10^3 (test 1.41 10*3/uL 1.32-3.29 code = 731-0) MONO x10^3 (test 0.87 10*3/uL 0.33-0.92 code = 742-7) EOS x10^3 (test 0.19 10*3/uL 0.03-0.39 code = 711-2) BASO x10^3 (test 0.05 10*3/uL 0.01-0.07 code = 704-7) [facility], MRI BREAST, WITHOUT / WITH IV CONTRAST, [id number] 17:19:00Unlisted Reason for Exam - Click Yes and Enter Reason Below->YesUnlisted Reason for Exam->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 01,Z15.89,Z15.09,Z15.02) [facility] : 1945 Sex: FMRN#: [id number] - MR, MRI BREAST, WITHOUT / WITH IV CONTRAST, BILATERAL BREAST MRI OF BOTH BREASTS: 01/09/2021LINICAL: CHEK2 mutation. Personal history of left breast DCIS in 2016. Screening. Comparison is made to exams dated: 07/25/2019 mammogram, 08/03/2019 MRI. Multi-sequence images of both breasts were obtained without and with 6 cc intravenous gadolinium. DynaCAD was used. 1. The breast is almost entirely fat with mild background parenchymal enhancement. There are scattered non-specific enhancing foci bilaterally. 2. RIGHT Breast: There are no suspicious enhancing masses or areas of non-mass enhancement. 3. LEFT Breast: There are no suspicious enhancing masses or areas of non-mass enhancement. Post surgical changes are present in the superior left breast. 4. No axillary or internal mammary lymphadenopathy. Limited visualization of the thorax and upper abdomen is unremarkable. IMPRESSION: There is no MRI evidence of malignancy. The patient is overdue for annual mammography and is scheduled for her mammogram next month (per patient request to coordinate with her Breast Oncology visit). Results were discussed with the patient on 01-09-21. The exam was reviewed by a staff physician. Gold Abel M.D.[facility],ag/:01/09/2021 17:19:57 Normal Exam MRI BI-RADS: [id number], CAROTID, [id number] 12:47:00Unlisted Reason for Exam - Click Yes and Enter Reason Below- >YesUnlisted Reason for Exam->History of stroke involving cerebellum [facility] LATRICIA : 1945 Sex: FFINAL REPORT EXAMINATION: CT angiogram of the neck with contrast CLINICAL HISTORY: History of a stroke involving the cerebellum, evaluate for neck vessel stenoses.COMPARISON STUDIES: MRA of the neck of 09/12/2020TECHNIQUE: Axial images were obtained from the thoracic inlet. For optimization of of anatomic evaluation, multi-planar reconstructions, maximum intensity projections, and advanced 3D off-line post-processing was obtained and performed on a dedicated stand-alone workstation under the direct supervision of the interpreting physician.Intravenous contrast: 100 mL of Isovue-370.Dose modulation, iterative reconstruction, and/or weight based adjustment of the mA/kV was utilized to reduce the radiation dose to as low as reasonably achievable. FINDINGS: If present, stenosis of the carotid bulbs is measured based on NASCET criteria i.e area of maximum stenosis compared to thecervical ICA distal to the bulb. Aortic arch and major vessels:Patent. Prominent mostly soft and mildly irregular atherosclerotic plaque in the left subclavian artery approximately 4 cm distal to the origin and immediately before the origin of the Left vertebral artery, it results in mild to moderate stenoses. Common carotid arteries:Right: Patent. No abnormalities.Left :Patent. No abnormalities. Carotid bulbs:Right: Soft and calcified plaque result in mild stenoses (approximately 40%).Left :Mostly calcified atherosclerotic plaque without associated stenosis (0%).Calcified atherosclerotic plaque inthe right carotid bifurcation. Internal carotid arteries:Right: Retropharyngeal course of the right cervical ICA as a normal variation of the anatomy..Left: Patent. No abnormalities. Vertebral arteries:The right its dominant, otherwise patent bilateral vertebral arteries without significant stenoses. The small caliber of the left vertebral artery may explain lack of flow signal on prior unenhanced MRangiogram of 09/12/2020 or this could also be related to interval recanalization. Cervical spine:Mild spondylosis, uncovertebral and facet arthroses results in moderate foraminal stenosis on the right at C2-C3, severe on the right at C3-C4, mild bilaterally at C4-C5 and C5-C6 and moderate at C6-C7. IMPRESSION: 1.Mild stenoses (less than 50%) of the right carotid bulb. No stenosis of the left carotid bulb. 2.The right vertebral artery is dominant and the left vertebral artery is mildly hypoplastic but otherwise patent at this time without significant stenoses as detailed above. 3.Prominent mostly soft atherosclerotic plaque in the left subclavian artery proximal to the origin of the left vertebral artery, this could potentially be the source for embolus. Signed: Melanie Nichole MDReport Verified Date/Time: 10/25/2020 12:47:28 Reading Location: [facility] Reading Room [address] [place] [address] -[id number] 13:11:00 Test Item Value Reference Range Interpretation Comments POC-CREATININE 1.0 mg/dL 0.6-1.3 : TESTED AT [facility] ([facility]) (test [address] [facility] code = 1859) [facility] 7 [address]: Biofuels Processing Technician/Techni kathy ID = [id number] for DERRICK LOPEZ POC-EGFR 54 mL/min/1.73M2 ([facility]) (test code = 1860) Troponin [id number] 21:49:00 Test Item Value Reference Range Interpretation Comments TROPONIN I (test <0.012 See_Comment [Automated code = 8492425748) message] The system which generated this result transmitted reference range : <=0.034 ng/mL. The reference range was not used to interpr et this result as normal/abnormal . GRACIELA (test code = Equal or Less than GRACIELA) 0.034 ng/ml---Normal ?Note: Cardiac troponin begins to rise 3-4 hours after the onset of ischemia. Repeat in 4-6 hours if the sample was drawn within 3-4 hours of the onset of the symptom and found normal. Between 0.035 and 0.120 ng/mL--- Borderline. Questionable myocardial injury or necrosis ? ?Note: Serial measurement may be necessary to confirm or exclude the diagnosis of myocardial injury or necrosis; Clinical correlation (symptoms, EKGs, imaging studies, and others) required; Repeat in 4-6 hours if clinically indicated. ? Equal or Higher than 0.121 ng/mL---Abnormal. Myocardial Injury or Necrosis Likely ? Biotin has been reported to cause a negative bias, interpret results relative to patient's use of biotin. ? Lab Interpretation Normal (test code = 06339-9) [facility] Metabolic Panel (NA, K, CL, CO2, GLUCOSE, BUN, CREATININE, CA)2020-09-15 21:38:00 Test Item Value Reference Range Interpretation Comments NA (test code = 140 mmol/L 135-145 2333689490) K (test code = 3.9 mmol/L 3.5-5 8306088690) CL (test code = 101 mmol/L 98-108 2000703702) CO2 TOTAL (test code = 27 mmol/L 23-31 1676287552) AGAP (test code = 2-16 6080727172) BUN (test code = 13 mg/dL 7-23 7392845457) GLUCOSE (test code = 104 mg/dL 70-110 2262594211) CREATININE (test code 0.87 mg/dL 0.5-1.04 = 5163552156) CALCIUM (test code = 10.4 mg/dL 8.6-10.6 7899868727) eGFR Calculation mL/min/1.73m2 (Non-) (test code = 4087490658) eGFR Calculation mL/min/1.73m2 () (test code = 2451259860) GRACIELA (test code = GRACIELA) Association of Glomerular Filtration Rate (GFR) and Staging of Kidney Disease* + -+ + ---+| GFR (mL/min/1.73 m2) ?| With Kidney Damage ?| ?Without Kidney Damage+ -------+ ------+ ---------+| ?>90 ?| ?Stage one ?| ? Normal ?+ --+ -+ ----+| ?60-89 ?| ?Stage two ?| ? Decreased GFR ? + -+ + ---+| ?30-59 ?| ?Stage three ?| ? Stage three ? + -+ + ---+| ?15-29 ?| ?Stage four ? | ? Stage four ?+ --+ -+ ----+| ?<15 (or dialysis) ? ?| ?Stage five ? | ? Stage five ?+ --+ -+ ----+ *Each stage assumes the associated GFR level has been in effect for at least three months. ?Stages 1 to 5, with or without kidney disease, indicate chronic kidney disease. Notes: Determination of stages one and two (with eGFR >59mL/min/1.73 m2) requires estimation of kidney damage for at least three months as defined by structural or functional abnormalities of the kidney, manifested by either:Pathological abnormalities or Markers of kidney damage (including abnormalities in the composition of the blood or urine or abnormalities in imaging tests). [facility] (ALB, T.PRO, BILI T, BU/BC, ALT, AST, ALK PHOS)2020-09-15 21:38:00 Test Item Value Reference Range Interpretation Comments TOTAL BILI (test code = 4842611400) 0.8 mg/dL 0.1-1.1 BILI UNCON (test code = 2797791199) 0.7 mg/dL 0.1-1.1 BILI CONJ (test code = 8430786108) 0.0 mg/dL 0-0.3 T PROTEIN (test code = 5168438832) 7.7 g/dL 6.3-8.2 ALBUMIN (test code = 0859727036) 4.6 g/dL 3.5-5 ALK PHOS (test code = 5604629061) 60 U/L 34-122 ALTv (test code = 1742-6) 18 U/L 5-35 AST(SGOT) (test code = 2235402825) 31 U/L 13-40 Lab Interpretation (test code = Normal 34749-3) [facility]2020-11-28 21:38:00 Test Item Value Reference Range Interpretation Comments MAGNESIUM (test code = 9234767453) 1.9 mg/dL 1.7-2.4 Lab Interpretation (test code = Normal 69010-5) [facility] 1 [id number] 21:34:11 Patchy right infrahilar opacity may be related to atelectasis or developinginfiltrate. There may krista trace left pleural effusion. Preliminary Report Dictated by Resident: Maria Antonia Elam I, Wayne Acosta MD., have reviewed this study and agree with the abovereport.XR CHEST 1 VW Comparison: None available History: cough Technique: Frontal radiograph Findings: Patchy right infrahilar opacity be related to atelectasis or developinginfiltrate. No pneumothorax or large pleural effusion. There maybe a traceleft pleural effusion. Surgical clips are seen at the left costophrenicangle. No definite acute osseous abnormality is present. Surgical clips projectover the upper abdomen. [facility], Radiant Results Inft User - 09/15/2020 3:35 PM CSTXR CHEST 1 VWComparison: None availableHistory: cough Technique: Frontal radiographFindings:Patchy right infrahilar opacity be related to atelectasis or developinginfiltrate. No pneumothorax or large pleural effusion. There may be a traceleft pleural effusion. Surgical clips are seen at the left costophrenicangle.No definite acute osseous abnormality is present. S urgical clips projectover the upper abdomen.IMPRESSIONPatchy right infrahilar opacity may be relatedto atelectasis or developinginfiltrate.There may be a trace left pleural effusion.Preliminary ReportDictated by Resident: Maria Antonia Cai, Wayne Acosta MD., have reviewed this study and agree with the abovereport.[facility] with [id number] 21:26:00 Test Item Value Reference Range Interpretation Comments WBC (test code = See_Comment [Automated 6990-2) message] The sy stem which generated this result transmitted reference range : 4.30 - 11.10 10*3/?L. The reference range was not used to interpret this result as normal/abnormal . RBC (test code = See_Comment [Automated 149-8) message] The sy stem which generated this result transmitted reference range : 3.93 - 5.25 10*6/?L. The reference range was not used to interpret this result as normal/abnormal . HGB (test code = 14.2 g/dL 11.6-15 718-7) HCT (test code = 44.1 % 35.7-45.2 4544-3) MCV (test code = 94.4 fL 80.6-95.5 787-2) MCH (test code = 30.4 pg 25.9-32.8 785-6) MCHC (test code = 32.2 g/dL 31.6-35.1 786-4) RDW-SD (test code = 46.5 fL 39-49.9 15602-0) RDW-CV (test code = 13.2 % 12-15.5 788-0) PLT (test code = See_Comment [Automated 777-3) message] The sy stem which generated this result transmitted reference range : 166 - 358 10*3/ ?L. The reference r emmanuel was not used to interpret this result as normal/abnormal . MPV (test code = 11.0 fL 9.5-12.9 69700-8) NRBC/100 WBC (test See_Comment [Automat ed code = 0386807696) message] The system which generated this result transmitted reference range : 0.0 - 10.0 /100 WBCs. The refer ence range was not u sed to interpret th is result as normal/abnormal . NRBC x10^3 (test code <0.01 See_Comment [Auto mated = 6616318476) message] The s ystem which generated this result transmitted reference range : 10*3/?L. The reference range was not used to interpret this result as normal/abnormal . GRAN MAT (NEUT) % 68.6 % (test code = 770-8) IMM GRAN % (test code 0.40 % = 9904192323) LYMPH % (test code = 18.2 % 736-9) MONO % (test code = 9.6 % 5905-5) EOS % (test code = 2.5 % 713-8) BASO % (test code = 0.7 % 706-2) GRAN MAT x10^3(ANC) 4.69 10*3/uL 1.88-7.09 (test code = 6927189782) IMM GRAN x10^3 (test 0.03 10*3/uL 0-0.06 code = 6574703747) LYMPH x10^3 (test code 1.25 10*3/uL 1.32-3.29 L = 731-0) MONO x10^3 (test code 0.66 10*3/uL 0.33-0.92 = 742-7) EOS x10^3 (test code = 0.17 10*3/uL 0.03-0.39 711-2) BASO x10^3 (test code 0.05 10*3/uL 0.01-0.07 = 704-7) Lab Interpretation Abnormal (test code = 91310-2) [facility]JULIAL[facility] Daniel [id number] 12:39:00 Test Item Value Reference Range Interpretation Comments TROPONIN I (BEAKER) (test code = 397) < ng/mL 0.00-0.15 Troponin I (TnI) levels must be interpreted in the context of the presenting symptoms and the clinical findings. Elevated TnI levels indicate myocardial damage, but are not specific for ischemic heart disease. Elevated TnI levels are seen in patients with other cardiac conditions (including myocarditis and congestive heart failure), and slight TnI elevations occur in patients with other conditions, including sepsis, renal failure, acidosis, acute neurological disease, and persistent tachyarrhythmia.[employer] Technician ID - ADMINRAD, CHEST, 1 VIEW, NON [id number] 10:27:00Reason for exam:->PNEUMONIAShould this be performed at the bedside?->Yes [facility] 1945 Sex: FFINAL REPORT Chest, 1 view, 09/12/2020 6:14 AM. History: Pneumonia. Comparison:07/29/2020. Discussion: The cardiomediastinal silhouette and pulmonary vasculature are mildly prominent. Irregular linear opacities and suture material are again seen at the right lung base. There is no focal consolidation or effusion. The soft tissues and osseous structures are intact. IMPRESSION: Right basilar scarring and postoperative changes. Signed: Иван Poole Verified Date/Time: 09/12/2020 10:27:20 Reading Location: [facility] Radiology Reading Room MR, MRA, NECK, WITHOUT IV [id number] 10:04:00Reason for exam:->SUSPECTED STROKE [facility] : 1945 Sex: FFINAL REPORT MR, BRAIN, WITH \\T\\ WITHOUT CONTRAST, MR, MRA, BRAIN, WITHOUT CONTRAST, MR, MRA, NECK, WITHOUT IV CONTRAST INDICATION: TIA, initial examSUSPECTED STROKE TECHNIQUE: Multiplanar, multisequence MR images of the brain. 3-D time of flight MRA of the cranial and cervical circulation. 2-D time of flight MRA of the neck. 3D MIP angiographic post-processing was performed. Stenosis evaluation utilized NASCET criteria. COMPARISON: Noncontrast brain CT of the same date FINDINGS: MRI BRAIN: Small subcentimeter acute infarcts within the left middle cerebellar peduncle and left cerebellar hemisphere. Brain parenchyma is normal in morphology. Midline structures are normally developed. No abnormal susceptibility. Scattered T2/FLAIR hyperintense foci within the periventricular andsubcortical white matter are nonspecific, however, statistically represent chronic microvascular ischemic changes. No hydrocephalus. Orbits are within normal limits. No obstructive paranasal sinus disease. Additional findings: None. MRA BRAIN:Internal carotid arteries: Normal flow related enhancement without flow-limiting stenosisMiddle cerebral arteries: Normal flow related enhancement within the bilateral MCA M1-M2 segments without flow limiting stenosisAnterior cerebral arteries: Normal flow-related enhancement within the bilateral KIMBERLEY A1-A2 segments without flow limiting stenosisBasilar system:Normal flow-related enhancement within the bilateral V4 segments and the basilar artery without flow-limiting stenosis Posterior cerebral arteries: Normal flow-related enhancement within the bilateral WASH TANK TENDER P1- P2 segments without flow-limiting stenosisAdditional findings: None. MRA NECK:Common carotid arteries: Unremarkable. Bifurcations: No flow-limiting stenosis. Cervical internal carotid arteries: No flow limiting stenosis.Vertebral arteries: Lack of flow related enhancement within the left cervical vertebral artery with apparent reconstitution within the V4 segment. Origins are not well-seen. No flow limiting stenosis within the visualized right cervical vertebral arterial segments. Limited assessment of the V3 segment secondary to noncontrast technique. IMPRESSION: Small subcentimeter acute inf arcts within the left middle cerebellar peduncle and left cerebellar hemisphere. Lack of flow related enhancement within the left cervical vertebral artery with apparent reconstitution within the V4 segment. This may be related to occlusion, or, possibly, diminutive caliber. Otherwise, no flow limiting stenosis in the major branch vessels of the cervical or cranial circulation. Signed: Cass Del Angel MDReport Verified Date/Time: 09/12/2020 10:04:31 Reading Location: [address] Neuro Reading Room MR, MRA, BRAIN, WITHOUT [id number] 10:04:00Reason for exam:->SUSPECTED STROKE [facility] : 1945 Sex: FFINAL REPORT MR, BRAIN, WITH \\T\\ WITHOUT CONTRAST, MR, MRA, BRAIN, WITHOUT CONTRAST, MR, MRA, NECK, WITHOUT IV CONTRAST INDICATION: TIA, initial examSUSPECTED STROKE TECHNIQUE: Multiplanar, multisequence MR images of the brain. 3-D time of flight MRA of the cranial and cervical circulation. 2-D time of flight MRA of the neck. 3D MIP angiographic post-processing was performed. Stenosis evaluation utilized NASCET criteria. COMPARISON: Noncontrast brain CT of the same date FINDINGS: MRI BRAIN: Small subcentimeter acute infarcts within the left middle cerebellar peduncle and left cerebellar hemisphere. Brain parenchyma is normal in morphology. Midline structures are normally developed. No abnormal susceptibility. Scattered T2/FLAIR hyperintense foci within the periventricular andsubcortical white matter are nonspecific, however, statistically represent chronic microvascular ischemic changes. No hydrocephalus. Orbits are within normal limits. No obstructive paranasal sinus disease. Additional findings: None. MRA BRAIN:Internal carotid arteries: Normal flow related enhancement without flow-limiting stenosisMiddle cerebral arteries: Normal flow related enhancement within the bilateral MCA M1-M2 segments without flow limiting stenosisAnterior cerebral arteries: Normal flow-related enhancement within the bilateral KIMBERLEY A1-A2 segments without flow limiting stenosisBasilar system:Normal flow-related enhancement within the bilateral V4 segments and the basilar artery without flow-limiting stenosis Posterior cerebral arteries: Normal flow-related enhancement within the bilateral WASH TANK TENDER P1- P2 segments without flow-limiting stenosisAdditional findings: None. MRA NECK:Common carotid arteries: Unremarkable. Bifurcations: No flow-limiting stenosis. Cervical internal carotid arteries: No flow limiting stenosis.Vertebral arteries: Lack of flow related enhancement within the left cervical vertebral artery with apparent reconstitution within the V4 segment. Origins are not well-seen. No flow limiting stenosis within the visualized right cervical vertebral arterial segments. Limited assessment of the V3 segment secondary to noncontrast technique. IMPRESSION: Small subcentimeter acute inf arcts within the left middle cerebellar peduncle and left cerebellar hemisphere. Lack of flow related enhancement within the left cervical vertebral artery with apparent reconstitution within the V4 segment. This may be related to occlusion, or, possibly, diminutive caliber. Otherwise, no flow limiting stenosis in the major branch vessels of the cervical or cranial circulation. Signed: Cass Del Angel MDReport Verified Date/Time: 09/12/2020 10:04:31 Reading Location: [facility] B1 C013V Neuro Reading Room MR, BRAIN, [id number] 10:04:00Reason for exam:- >[facility] 1945 Sex: FFINAL REPORT MR, BRAIN, WITH \\T\\ WITHOUT CONTRAST, MR, MRA, BRAIN, WITHOUT CONTRAST, MR, MRA, NECK, WITHOUT IV CONTRAST INDICATION: TIA, initial examSUSPECTED STROKE TECHNIQUE: Multiplanar, multisequence MR images of the brain. 3-D time of flight MRA of the cranial and cervical circulation. 2-D time of flight MRA of the neck. 3D MIP angiographic post-processing was performed. Stenosis evaluation utilized NASCET criteria. COMPARISON: Noncontrast brain CT of the same date FINDINGS: MRI BRAIN: Small subcentimeter acute infarcts within the left middle cerebellar peduncle and left cerebellar hemisphere. Brain parenchyma is normal in morphology. Midline structures are normally developed. No abnormal susceptibility. Scattered T2/FLAIR hyperintense foci within the periventricular andsubcortical white matter are nonspecific, however, statistically represent chronic microvascular ischemic changes. No hydrocephalus. Orbits are within normal limits. No obstructive paranasal sinus disease. Additional findings: None. MRA BRAIN:Internal carotid arteries: Normal flow related enhancement without flow-limiting stenosisMiddle cerebral arteries: Normal flow related enhancement within the bilateral MCA M1-M2 segments without flow limiting stenosisAnterior cerebral arteries: Normal flow-related enhancement within the bilateral KIMBERLEY A1-A2 segments without flow limiting stenosisBasilar system:Normal flow-related enhancement within the bilateral V4 segments and the basilar artery without flow-limiting stenosis Posterior cerebral arteries: Normal flow-related enhancement within the bilateral WASH TANK TENDER P1- P2 segments without flow-limiting stenosisAdditional findings: None. MRA NECK:Common carotid arteries: Unremarkable. Bifurcations: No flow-limiting stenosis. Cervical internal carotid arteries: No flow limiting stenosis.Vertebral arteries: Lack of flow related enhancement within the left cervical vertebral artery with apparent reconstitution within the V4 segment. Origins are not well-seen. No flow limiting stenosis within the visualized right cervical vertebral arterial segments. Limited assessment of the V3 segment secondary to noncontrast technique. IMPRESSION: Small subcentimeter acute inf arcts within the left middle cerebellar peduncle and left cerebellar hemisphere. Lack of flow related enhancement within the left cervical vertebral artery with apparent reconstitution within the V4 segment. This may be related to occlusion, or, possibly, diminutive caliber. Otherwise, no flow limiting stenosis in the major branch vessels of the cervical or cranial circulation. Signed: Cass Del Angel MDReport Verified Date/Time: 09/12/2020 10:04:31 Reading Location: [address] Neuro Reading Room TROPONIN [id number] 06:49:00 Test Item Value Reference Range Interpretation Comments TROPONIN I (BEAKER) (test code = 397) < ng/mL 0.00-0.15 Troponin I (TnI) levels must be interpreted in the context of the presenting symptoms and the clinical findings. Elevated TnI levels indicate myocardial damage, but are not specific for ischemic heart disease. Elevated TnI levels are seen in patients with other cardiac conditions (including myocarditis and congestive heart failure), and slight TnI elevations occur in patients with other conditions, including sepsis, renal failure, acidosis, acute neurological disease, and persistent tachyarrhythmia.[employer] Technician ID - ADMINHEMOGLOBIN A1C 2020-09-12 06:00:00 Test Item Value Reference Range Interpretation Comments HEMOGLOBIN A1C (BEAKER) (test code = 5.5 % 4.3-6.1 368) [employer] Technician ID - ADMINCOMPREHENSIVE METABOLIC [id number] 05:58:00 Test Item Value Reference Range Interpretation Comments TOTAL PROTEIN 5.5 gm/dL 6.0-8.5 L (BEAKER) (test code = 770) ALBUMIN (BEAKER) 3.2 g/dL 3.5-5.0 L (test code = 1145) ALKALINE PHOSPHATASE 45 U/L 30-115 (BEAKER) (test code = 346) BILIRUBIN TOTAL 0.7 mg/dL 0.1-1.2 (BEAKER) (test code = 377) SODIUM (BEAKER) (test 143 meq/L 135-148 code = 381) POTASSIUM (BEAKER) 3.7 meq/L 3.6-5.5 (test code = 379) CHLORIDE (BEAKER) 107 meq/L 98-106 H (test code = 382) CO2 (BEAKER) (test 27 meq/L 20-29 code = 355) BLOOD UREA NITROGEN 13 mg/dL 10-26 (BEAKER) (test code = 354) CREATININE (BEAKER) 0.84 mg/dL 0.50-1.20 (test code = 358) GLUCOSE RANDOM 92 mg/dL 70-110 (BEAKER) (test code = 652) CALCIUM (BEAKER) 8.3 mg/dL 8.5-10.5 L (test code = 697) AST (SGOT) (BEAKER) 12 U/L 5-40 (test code = 353) ALT (SGPT) (BEAKER) 9 U/L 5-50 (test code = 347) EGFR (BEAKER) (test 66 mL/min/1.73 ESTIMA JEFF GFR IS code = 1092) sq m NOT ACCURATE CREATININE CLEARANCE IN PREDICTING GLOMERULAR FILTRATION RATE . ESTIMATED GFR I S NOT APPLICABLE FOR DIALYSIS PATIEN TS. Bio[employer]els Processing Technician ID - ADMINOperator ID - ADMINOperator ID - ADMINOperator ID - ADMINOperator ID - ADMINOperator ID - ADMINOperator ID - ADMINOperator ID - ADMINOperator ID - ADMINOperator ID - ADMINOperator ID- ADMINOperator ID - ADMINOperator ID - ADMINOperator ID - ADMINOperator ID - ADMINOperator ID - ADMI [id number] 05:58:00 Test Item Value Reference Range Interpretation Comments MAGNESIUM (BEAKER) (test code = 1.8 mg/dL 1.5-3.0 627) [employer] Technician ID - ADMINOperator ID - ADMINOperator ID - ADMINOperator ID - ADMIN LIPID [id number] 05:57:00 Test Item Value Reference Range Interpretation Comments TRIGLYCERIDES (BEAKER) (test code = 70 mg/dL 540) CHOLESTEROL (BEAKER) (test code = 135 mg/dL 631) HDL CHOLESTEROL (BEAKER) (test code 51 mg/dL = 976) LDL CHOLESTEROL CALCULATED (BEAKER) 70 mg/dL (test code = 633) Triglyceride Reference Range: Low Risk <150 Borderline 150-199 High Risk 200-499 Very High Risk >=500Cholesterol Reference Range: Low Risk <200 Borderline 200-239 High Risk >240HDL Cholesterol Reference Range: Low Risk >=60 High Risk <40LDL Cholesterol Reference Range: Optimal <100 Near Optimal 100-129 Borderline 130-159 High 160-189 Very High >=190 [employer]fuels Processing Technician ID - ADMINOperator ID - ADMINOperator ID - ADMINCBC W/PLT COUNT & AUTO [id number] 05:40:00 Test Item Value Reference Range Interpretation Comments WHITE BLOOD CELL COUNT (BEAKER) 4.7 K/ L 4.0-10.0 (test code = 775) RED BLOOD CELL COUNT (BEAKER) 3.88 M/ L 4.00-5.00 L (test code = 761) HEMOGLOBIN (BEAKER) (test code = 11.8 GM/DL 12.0-15.5 L 410) HEMATOCRIT (BEAKER) (test code = 36.9 % 36.0-46.0 411) MEAN CORPUSCULAR VOLUME (BEAKER) 95.1 fL 82.0-99.0 (test code = 753) MEAN CORPUSCULAR HEMOGLOBIN 30.4 pg 27.0-33.0 (BEAKER) (test code = 751) MEAN CORPUSCULAR HEMOGLOBIN CONC 32.0 GM/DL 32.0-36.0 (BEAKER) (test code = 752) RED CELL DISTRIBUTION WIDTH 13.3 % 12.0-15.0 (BEAKER) (test code = 412) PLATELET COUNT (BEAKER) (test 265 K/CU MM 150-430 code = 756) MEAN PLATELET VOLUME (BEAKER) 11.0 fL 6.0-11.5 (test code = 754) NUCLEATED RED BLOOD CELLS 0 /100 WBC 0-0 (BEAKER) (test code = 413) NEUTROPHILS RELATIVE PERCENT 53 % (BEAKER) (test code = 429) LYMPHOCYTES RELATIVE PERCENT 29 % (BEAKER) (test code = 430) MONOCYTES RELATIVE PERCENT 12 % (BEAKER) (test code = 431) EOSINOPHILS RELATIVE PERCENT 5 % (BEAKER) (test code = 432) BASOPHILS RELATIVE PERCENT 1 % (BEAKER) (test code = 437) NEUTROPHILS ABSOLUTE COUNT 2.46 K/ L 1.80-8.00 (BEAKER) (test code = 670) LYMPHOCYTES ABSOLUTE COUNT 1.33 K/ L 1.48-4.50 L (BEAKER) (test code = 414) MONOCYTES ABSOLUTE COUNT (BEAKER) 0.58 K/ L 0.00-1.30 (test code = 415) EOSINOPHILS ABSOLUTE COUNT 0.24 K/ L 0.00-0.50 (BEAKER) (test code = 416) BASOPHILS ABSOLUTE COUNT (BEAKER) 0.04 K/ L 0.00-0.20 (test code = 417) IMMATURE GRANULOCYTES-RELATIVE 0 % 0-0 PERCENT (BEAKER) (test code = 2801) CT ANGIOGRAM [id number] 01:30:33Addendum by Laila Soto MD on 09/11/2020 8:49 PM* * * * * * * * ADDENDUM: * * * * * * * *Findings of final report including 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 Preliminary Report Dictated by Resident: Laila Dodge MD., have reviewed this study and agree with the abovereport. Short segment soft plaque is noted at the left proximal subclavian arteryresults in severe approximately 80% stenosis. Short segment severe approximately 90% narrowing of the right proximal ICA. 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 Nointracranial high-grade stenosis. Laila Aragon MD., have reviewed this study and agree with the abovereport.CT ANGIOGRAM HEAD, CT ANGIOGRAM NECK HISTORY: TIA, initial exam TECHNIQUE: CTA of the head and neck with coronal, sagittal reformats, andMIPS reconstruction was performed. COMPARISON: ?None FINDINGS: CTA NECK: Aortic arch and arch vessel origins: Standard three-vessel aortic arch.Aortic arch athero sclerosis with mild narrowing of the great neck vessels. Short segment noncalcified plaque is noted at the left subclavian arteryjust proximal to the vertebral artery origin results in severeapproximately 80% stenosis (7:101). The carotids: Calcification results in mild less than 30% stenosis of theleft proximal ICA. Short segment severe narrowing of the proximal right ICAapproximately 90% by NASCET criteria. The common carotid arteries andremainder of the internal carotid arteries are patent. Vertebral arteries: The bilateral vertebral arteries originate normallyfrom the subclavian arteries. The ostia are patent. Small caliber leftvertebral artery throughout the cervical course likely hypoplastic.Dominant right vertebral artery. No high-grade stenosis or dissectionidentified. Cervical soft tissues: Pneumatized secretions are seen in the midesophagus. Lung apices: Mild interlobular septal thickening and groundglass opacitynoted in the right apex probably represents focal infectious/inflammatoryprocess. Cervical spine: No acute bony abnormality. Mild degenerative changes. CTA HEAD: The PICA origin is visualized on the right. An AICA-PICA is suspected onthe left. The basilar artery is normal incaliber. The superior cerebellararteries are unremarkable. The posterior cerebral arteries areunremarkable. origin of right WASH TANK TENDER noted. The posterior cerebralarteries are patent. Small posterior communicating artery is seen on theleft side. The distal cervical, petrous, cavernous and supraclinoidinternal carotidarteries are patent with no more than no more than mild calcification inthe carotid siphons. An approximately 1 to 2 mm outpouching is projectinglaterally from the right cavernous ICA may represent blister aneurysm.Trifurcation of A2 KIMBERLEY noted. The anterior cerebral arteries are otherwisepatent. The middle cerebral arteries are unremarkable.. ?An anteriorcommunicating artery is visualized. [facility], Radiant Results Inft User - 09/11/2020 7:31 PM CSTCT ANGIOGRAM HEAD, CT ANGIOGRAM NECKHISTORY: TIA, initial exam TECHNIQUE: CTA of the head and neck with coronal, sagittal reformats, andMIPSreconstruction was performed.COMPARISON: NoneFINDINGS:CTA NECK:Aortic arch and arch vessel origins: Standard three-vessel aortic arch.Aortic arch atherosclerosis with mild narrowing of the great neck ve ssels.Short segment noncalcified plaque is noted at the left subclavian arteryjust proximal to the vertebral artery origin results in severeapproximately 80% stenosis (7:101).The carotids: Calcification results in mild less than 30% stenosis of theleft proximal ICA. Short segment severe narrowing of the proximal right ICAapproximately 90% by NASCET criteria. The common carotid arteries andremainder of the internal carotid arteries are patent.Vertebral arteries: The bilateral vertebral arteries originate normallyfrom the subclavian arteries. The ostia are patent. Small caliber leftvertebral artery throughout the cervical course likely hypoplastic.Dominant right vertebral artery. No high-grade stenosis or dissectionidentified.Cervical soft tissues: Pneumatized secretions are seen in the midesophagus.Lung apices: Mild interlobular septal thickening and groundglass opacitynoted in the right apex probably represents focal infectious/inflammatoryprocess.Cervical spine: No acute bony abnormality. Milddegenerative changes.CTA HEAD:The PICA origin is visualized on the right. An AICA-PICA is suspected onthe left. The basilar artery is normal in caliber. The superior cerebellararteries are unremarkable. The posterior cerebral arteries areunremarkable. origin of right WASH TANK TENDER noted. The posterior cerebralarteries are patent. Small posterior communicating artery is seen on theleft side.The distal cervical, petrous, cavernous and supraclinoid internal carotidarteries are patent with no more than no more than mild calcification inthe carotid siphons. An approximately 1 to 2 mm outpouching is projectinglaterally from the right cavernous ICA may represent blister aneurysm.Trifurcation of A2 KIMBERLEY noted.The anterior cerebral arteries are otherwisepatent. The middle cerebral arteries are unremarkable.. An anteriorcommunicating artery is visualized.IMPRESSIONShort segment soft plaque is noted at the left proximal subclavian arteryresults in severe approximately 80% stenosis.Short segment severe approximately 90% narrowing of the right proximal ICA. 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 Preliminary Report Dictated by Resident: Laila Dodge MD., have reviewed this study and agree with the abovereport. Short segment soft plaque is noted at the left proximal subclavian arteryresults in severe approximately 80% stenosis. Short segment severe approximately 90% narrowing of the right proximal ICA. 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 Nointracranial high-grade stenosis. Laila Aragon MD., have reviewed this study and agree with the abovereport.CT ANGIOGRAM HEAD, CT ANGIOGRAM NECK HISTORY: TIA, initial exam TECHNIQUE: CTA of the head and neck with coronal, sagittal reformats, andMIPS reconstruction was performed. COMPARISON: ?None FINDINGS: CTA NECK: Aortic arch and arch vessel origins: Standard three-vessel aortic arch.Aortic arch atherosclerosis with mild narrowing of the great neck vessels. Short segment noncalcified plaque is noted at the left subclavian arteryjust proximal to the vertebral artery origin results in severeapproximately 80% stenosis (7:101). The carotids: Calcification results in mild less than 30% stenosis of theleft proximal ICA. Short segment severe narrowing of the proximal right ICAapproximately 90% by NASCET criteria. The common carotid arteries andremainder of the internal carotid arteries are patent. Vertebral arteries: The bilateral vertebral arteries originate normallyfrom the subclavian arteries. The ostia are patent. Small caliber leftvertebral artery throughout the cervical course likely hypoplastic.Dominant right vertebral artery. No high-grade stenosis or dissectionidentified. Cervical soft tissues: Pneumatized secretions are seen in the midesophagus. Lung apices: Mild interlobular septal thickening and groundglass opacitynoted in the right apex probably represents focal infectious/inflammatoryprocess. Cervical spine: No acute bony abnormality. Mild degenerative changes. CTA HEAD: The PICA origin is visualized on the right. An AICA-PICA is suspected onthe left. The basilar artery is normal incaliber. The superior cerebellararteries are unremarkable. The posterior cerebral arteries areunremarkable. origin of right WASH TANK TENDER noted. The posterior cerebralarteries are patent. Small posterior communicating artery is seen on theleft side. The distal cervical, petrous, cavernous and supraclinoidinternal carotidarteries are patent with no more than no more than mild calcification inthe carotid siphons. An approximately 1 to 2 mm outpouching is projectinglaterally from the right cavernous ICA may represent blister aneurysm.Trifurcation of A2 KIMBERLEY noted. The anterior cerebral arteries are otherwisepatent. The middle cerebral arteries are unremarkable.. ?An anteriorcommunicating artery is visualized. [facility], Radiant Results Inft User - 09/11/2020 7:31 PM CSTCT ANGIOGRAM HEAD, CT ANGIOGRAM NECKHISTORY: TIA, initial exam TECHNIQUE: CTA of the head and neck with coronal, sagittal reformats, andMIPSreconstruction was performed.COMPARISON: NoneFINDINGS:CTA NECK:Aortic arch and arch vessel origins: Standard three-vessel aortic arch.Aortic arch atherosclerosis with mild narrowing of the great neck vessels.Short segment noncalcified plaque is noted at the left subclavian arteryjust proximal to the vertebral artery origin results in severeapproximately 80% stenosis (7:101).The carotids: Calcification results in mild less than 30% stenosis of theleft proximal ICA. Short segment severe narrowing of the proximal right ICAapproximately 90% by NASCET criteria. The common carotid arteries andremainder of the internal carotid arteries are patent.Vertebral arteries: The bilateral vertebral arteries originate normallyfrom the subclavian arteries. The ostia are patent. Small caliber leftvertebral artery throughout the cervical course likely hypoplastic.Dominant right vertebral artery. No high-grade stenos is or dissectionidentified.Cervical soft tissues: Pneumatized secretions are seen in the midesophagus.Lung apices: Mild interlobular septal thickening and groundglass opacitynoted in the right apex probably represents focal infectious/inflammatoryprocess.Cervical spine: No acute bony abnormality. Mild degenerative changes.CTA HEAD:The PICA origin is visualized on the right. An AICA-PICA is suspected onthe left. The basilar artery is normal in caliber. The superior cerebellararteries are unremarkable. The posterior cerebral arteries areunremarkable. origin of right WASH TANK TENDER noted. The posterior cerebralarteries are patent. Small posterior communicating artery is seen on theleft side.The distal cervical, petrous, cavernous and supraclinoid internal carotidarteries are patent with no more than no more than mild calcification inthe carotid siphons. An approximately 1 to 2 mm outpouching is projectinglaterally from the right cavernous ICA may represent blister aneurysm.Trifurcation of A2 KIMBERLEY noted. The anterior cerebral arteries are otherwisepatent. The middle cerebral arteries are unremarkable.. An anteriorcommunicating artery is visualized.IMPRESSIONShort segment soft plaque is noted at the left proximal subclavian arteryresults in severe approximately 80% stenosis.Short segment severe approximately 90% narrowing of the right proximal ICA. 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 Nointracranial high-grade stenosis.ILaila MD., have reviewed this studyand agree with the abovereport.[facility]lake[facility]INALYSIS2020-11-24 23:39:00 Test Item Value Reference Range Interpretation Comments APPEARANCE (test code = Clear Clear 2617681577) COLOR (test code = Yellow Yellow 5682255102) PH (test code = 4.8-8.0 3748211584) SP GRAVITY (test code = 1.003-1.030 H 6568541624) GLU U QUAL (test code = Normal Normal 0633981969) BLOOD (test code = Negative Negative 4753319063) KETONES (test code = 5 mg/dL Negative A 8066143625) PROTEIN (test code = Negative Negative 2887-8) UROBILIN (test code = Normal Normal 8865025419) BILIRUBIN (test code = Negative Negative 5284754674) NITRITE (test code = Negative Negative 7379346223) LEUK SHIRA (test code = 250/uL Negative A 6274566586) RBC/HPF (test code = <1 See_Comment [Autom ated message] 8948806424) The system [employer] generated this result transmitted ref erence range: 0 - 3 HP F. The reference range was not used to int erpret this result as normal/abnormal . WBC/HPF (test code = See_Comment [Autom ated message] 0474330097) The system [employer] generated this result transmitted ref erence range: 0 - 5 HP F. The reference range was not used to int erpret this result as normal/abnormal . BACTERIA (test code = Few Negative A 0848424341) SQ EPITH (test code = <1 HPF 8852011915) Lab Interpretation (test Abnormal code = 43007-1) [facility] (ID NOW RAPID TESTING)2020-09-11 23:03:00 Test Item Value Reference Range Interpretation Comments SARS-CoV-2 Rapid ID NOW Not Detected Not Detected (test code = 76324-2) GRACIELA (test code = GRACIELA) ID NOW COVID-19 Assay is an isothermal nucleic acid amplification test intended for the qualitative detection of nucleic acid from SARS-CoV-2 viral RNA in nasopharyngeal (STAVE GRADER) specimens. It is used under Emergency Use Authorization (EUA) by FDA. The limit of detection (LOD) of the assay is 125 Genome Equivalents/mL. A positive result is indicative of the presence of SARS-CoV-2 RNA. ?Clinical correlation with patient history and other diagnostic information is necessary to determine patient infection status. A negative (Not Detected) result does not preclude SARS-CoV-2 infection. In patients with clinical symptoms and other tests that are consistent with SARS-CoV-2 infection, negative results should be treated as presumptive negative and a new specimen should be tested with alternative PCR molecular test. Invalid: Please collect a new specimen for repeat patient testing if clinically indicated. Lab Interpretation Normal (test code = 98736-7) [facility] HEAD WO [id number] 22:57:15 No acute intracranial abnormality. Preliminary Report Dictated by Resident: Maria Antonia Elam I, Derrick Reyes MD., have reviewed this study and agree with theabove report.CT HEAD WO CONTRAST HISTORY: TIA, initial exam COMPARISON: None TECHNIQUE: Contiguous axial CT images of the head were obtained without theuse of intravenous contrast. Coronal and sagittal reformats were provided. FINDINGS: Mildly prominent subarachnoid space over the vertex. The ventricles andsulci are otherwise normalin caliber and configuration. No hydrocephalus,midline shift or pathological extra-axial fluid collection is present. Thebasal cisterns are unremarkable. There is no acute intracranial hemorrhage or significant mass effect. A fewperiventricular and deep white matter hypodensities are nonspecific butlikely represent small vessel ischemic changes. The pruitt-white matterdifferentiation is preserved. The aspect score is 10. The mastoid air cells and paranasal air sinuses are clear. The calvariumand central skull base are unremarkable. Left pseudophakia. Intracranialatherosclerosis. Nonspecific exophyticleft frontal scalp soft tissuenodule at the vertex. [facility], Radiant Results Inft User - 09/11/2020 4:58 PM CSTCT HEAD WO CONTRASTHISTORY: TIA, initial exam COMPARISON: NoneTECHNIQUE: Contiguous axial CT images of the head were obtained without theuse of intravenous contrast. Coronal and sagittal reformats were provided.FINDINGS:Mildly prominent subarachnoid space over the vertex. The ventricles andsulci are otherwise normal in caliber and configuration. No hydrocephalus,midline shift or pathological extra-axial fluid collection is present. Thebasal cisterns are unremarkable.There is no acute intracranial hemorrhage or significant mass effect. A fewperiventricular and deep white matter hypodensities are nonspecific butlikely represent small vessel ischemic changes. The pruitt-white matterdifferentiation is preserved. The aspect score is 10.The mastoid air cells and paranasal air sinuses are clear. The calvariumand central skull base are unremarkable. Left pseudophakia. Intracranialatherosclerosis. Nonspecific exophytic left frontal scalp soft tissuenodule at the vertex.IMPRESSIONNo acute intracranial abnormality.Preliminary Report Dictated by Resident: Mari aAntonia Cai, Derrick Reyes MD., have reviewed this study and agree with theabove report.[facility] [id number] 22:44:00 Test Item Value Reference Range Interpretation Comments TROPONIN I (test <0.012 See_Comment [Automated code = 3729141070) message] The system which generated this result transmitted reference range : <=0.034 ng/mL. The reference range was not used to interpr et this result as normal/abnormal . GRACIELA (test code = Equal or Less than GRACIELA) 0.034 ng/ml---Normal ?Note: Cardiac troponin begins to rise 3-4 hours after the onset of ischemia. Repeat in 4-6 hours if the sample was drawn within 3-4 hours of the onset of the symptom and found normal. Between 0.035 and 0.120 ng/mL--- Borderline. Questionable myocardial injury or necrosis ? ?Note: Serial measurement may be necessary to confirm or exclude the diagnosis of myocardial injury or necrosis; Clinical correlation (symptoms, EKGs, imaging studies, and others) required; Repeat in 4-6 hours if clinically indicated. ? Equal or Higher than 0.121 ng/mL---Abnormal. Myocardial Injury or Necrosis Likely ? Biotin has been reported to cause a negative bias, interpret results relative to patient's use of biotin. ? Lab Interpretation Normal (test code = 50487-7) [facility]. METABOLIC PANEL (55478)2020-09-11 22:32:00 Test Item Value Reference Range Interpretation Comments NA (test code = 138 mmol/L 135-145 7415507554) K (test code = 4.2 mmol/L 3.5-5 5582335985) CL (test code = 104 mmol/L 98-108 9217187419) CO2 TOTAL (test code = 24 mmol/L 23-31 1071037808) AGAP (test code = 2-16 8898853327) BUN (test code = 16 mg/dL 7-23 4210883909) GLUCOSE (test code = 103 mg/dL 70-110 0291189833) CREATININE (test code 0.97 mg/dL 0.5-1.04 = 7368887538) TOTAL BILI (test code 0.8 mg/dL 0.1-1.1 = 9322778745) CALCIUM (test code = 10.0 mg/dL 8.6-10.6 1390981397) T PROTEIN (test code = 7.6 g/dL 6.3-8.2 7480409748) ALBUMIN (test code = 4.5 g/dL 3.5-5 6594310468) ALK PHOS (test code = 60 U/L 34-122 9105703266) ALTv (test code = 14 U/L 5-35 1742-6) AST(SGOT) (test code = 25 U/L 13-40 3160811683) eGFR Calculation mL/min/1.73m2 (Non-) (test code = 3964938930) eGFR Calculation mL/min/1.73m2 () (test code = 1463588879) GRACIELA (test code = GRACIELA) Association of Glomerular Filtration Rate (GFR) and Staging of Kidney Disease* + -+ + ---+| GFR (mL/min/1.73 m2) ?| With Kidney Damage ?| ?Without Kidney Damage+ -------+ ------+ ---------+| ?>90 ?| ?Stage one ?| ? Normal ?+ --+ -+ ----+| ?60-89 ?| ?Stage two ?| ? Decreased GFR ? + -+ + ---+| ?30-59 ?| ?Stage three ?| ? Stage three ? + -+ + ---+| ?15-29 ?| ?Stage four ? | ? Stage four ?+ --+ -+ ----+| ?<15 (or dialysis) ? ?| ?Stage five ? | ? Stage five ?+ --+ -+ ----+ *Each stage assumes the associated GFR level has been in effect for at least three months. ?Stages 1 to 5, with or without kidney disease, indicate chronic kidney disease. Notes: Determination of stages one and two (with eGFR >59mL/min/1.73 m2) requires estimation of kidney damage for at least three months as defined by structural or functional abnormalities of the kidney, manifested by either:Pathological abnormalities or Markers of kidney damage (including abnormalities in the composition of the blood or urine or abnormalities in imaging tests). [facility]lakeACTIV[facility] PARTIAL THRMPLAS [id number] 22:28:00 Test Item Value Reference Range Interpretation Comments APTT Patient (test See_Comment [Automat ed code = 3173-2) message] The system which generated this result transmitted reference range : 23 - 38 Seconds . The reference range was not used to interpr et this result as normal/abnormal . GRACIELA (test code = GRACIELA) The [facility] patient population mean normal value for aPTT is 30 seconds. Lab Interpretation Normal (test code = 45010-7) [facility]lakePROTHROMBIN TIME / [id number] 22:26:00 Test Item Value Reference Range Interpretation Comments PROTIME PATIENT (test See_Comment [Auto mated message] code = 5964-2) The system wh ich generated this result transmitted ref erence range: 12.0 - 1 4.7 Seconds. The re ference range was not u sed to interpret this result as normal/abnor mal. INR (test code = 6301-6) Nor mal INR <1.1; Warfarin Therap eutic range 2.0 to 3. 0 or 2.5 to 3.5, dep ending upon the indica tions. Lab Interpretation (test Normal code = 85560-1) [facility] WITH [id number] 22:18:00 Test Item Value Reference Range Interpretation Comments WBC (test code = See_Comment [Automated 0290-2) message] The sy stem which generated this result transmitted reference range : 4.30 - 11.10 10*3/?L. The reference range was not used to interpret this result as normal/abnormal . RBC (test code = See_Comment [Automated 409-8) message] The sy stem which generated this result transmitted reference range : 3.93 - 5.25 10*6/?L. The reference range was not used to interpret this result as normal/abnormal . HGB (test code = 13.8 g/dL 11.6-15 718-7) HCT (test code = 42.3 % 35.7-45.2 4544-3) MCV (test code = 94.0 fL 80.6-95.5 787-2) MCH (test code = 30.7 pg 25.9-32.8 785-6) MCHC (test code = 32.6 g/dL 31.6-35.1 786-4) RDW-SD (test code = 44.8 fL 39-49.9 36494-5) RDW-CV (test code = 13.1 % 12-15.5 788-0) PLT (test code = See_Comment [Automated 777-3) message] The sy stem which generated this result transmitted reference range : 166 - 358 10*3/ ?L. The reference r emmanuel was not used to interpret this result as normal/abnormal . MPV (test code = 10.9 fL 9.5-12.9 36041-0) NRBC/100 WBC (test See_Comment [Automat ed code = 2793168360) message] The system which generated this result transmitted reference range : 0.0 - 10.0 /100 WBCs. The refer ence range was not u sed to interpret th is result as normal/abnormal . NRBC x10^3 (test code <0.01 See_Comment [Auto mated = 5781891457) message] The s ystem which generated this result transmitted reference range : 10*3/?L. The reference range was not used to interpret this result as normal/abnormal . GRAN MAT (NEUT) % 71.6 % (test code = 770-8) IMM GRAN % (test code 0.40 % = 7119990968) LYMPH % (test code = 13.3 % 736-9) MONO % (test code = 11.4 % 5905-5) EOS % (test code = 2.5 % 713-8) BASO % (test code = 0.8 % 706-2) GRAN MAT x10^3(ANC) 5.48 10*3/uL 1.88-7.09 (test code = 3728301504) IMM GRAN x10^3 (test 0.03 10*3/uL 0-0.06 code = 9156692217) LYMPH x10^3 (test code 1.02 10*3/uL 1.32-3.29 L = 731-0) MONO x10^3 (test code 0.87 10*3/uL 0.33-0.92 = 742-7) EOS x10^3 (test code = 0.19 10*3/uL 0.03-0.39 711-2) BASO x10^3 (test code 0.06 10*3/uL 0.01-0.07 = 704-7) Lab Interpretation Abnormal (test code = 48743-6) [facility] + [facility] (NON-SPUTUM)2020-08-07 10:35:00 Test Item Value Reference Range Interpretation Comments CULTURE (BEAKER) (test No acid-fast bacilli code = 1095) isolated in 42 days AFB SMEAR (BEAKER) No acid fast bacilli (test code = 994) seen AFB CULTURE + SMEAR (NON-SPUTUM)2020-08-07 10:35:00 Test Item Value Reference Range Interpretation Comments CULTURE (BEAKER) (test No acid-fast bacilli code = 1095) isolated in 42 days AFB SMEAR (BEAKER) No acid fast bacilli (test code = 994) seen TISSUE [id number] 12:45:00Surgical Pathology Report Case: [id number] Authorizing Provider: Ernie Washington MD Collected: 07/27/2020 09:09 AM Ordering Location: [facility] Received: 07/27/2020 11:02 AM PERIOPERATIVE SERVICES Pathologist: Sony Caceres MD Specimens: A) - Lymph Node, Para-Esophageal, Station 8,STATION 8 X 2 B) - Other, STATION 10 LYMPH NODE C) - Lymph Node, Subcarinal, Station 7, STATION 7 D)- Lymph Node, STATION 11 LYMPH NODES E) - Lymph Node, Subcarinal, Station 7, STATION 7 #2 F) - LymphNode, STATION 11 #2 G) - Lymph Node, STATION 12 H) - Lung, Left Lower Lobe, LEFT LOWER LOBE PART A PARAESOPHAGEAL STATION 8X2, EXCISION:TWO LYMPH NODES, NEGATIVE FOR TUMOR (0/2).PART B STATION 10 LYMPHNODE, EXCISION;ONE LYMPH NODE, NEGATIVE FOR TUMOR (0/1).PART C SUBCARINAL STATION 7, EXCISION:ONE LYMPH NODE, NEGATIVE FOR TUMOR (0/1),PART D STATION 11 LYMPH NODES, EXCISION:TWO LYMPH NODES, NEGATIVE F OR TUMOR (0/2).PART E SUBCARINAL STATION 7 LYMPH NODE#2, EXCISION:ONE LYMPH NODE, NEGATIVE FOR TUMOR(0/1).PART F STATION 11 LYMPH NODE#2, EXCISION:ONE LYMPH NODE, NEGATIVE FOR TUMOR (0/1).PART G STATION 12 LYMPH NODE, EXCISION:ONE LYMPH NODE, NEGATIVE FOR TUMOR (0/1).PART H LEFT LOWER LOBE LUNG, LOBECTOMY:MODERATELY DIFFERENTIATED ADENOCARCINOMA, 1.5 CM IN GREATEST DIMENSION (INVASIVE COMPONENT IS 1.1CM).THE PLEURA IS NOT INVOLVED.LYMPHOVASCULAR INVASION IS NOT IDENTIFIED.PERINEURAL INVASION IS NOTIDENTIFIED.SURGICAL MARGINS ARE NEGATIVE FOR TUMOR.AJCC CLASSIFICATION (8TH EDITION) [id number]. SEE SYNOPTIC REPORT. Signing Pathologist Direct Phone Line: [phone] signed by Sony Caceres MD on 08/01/2020 at 12:45 PMLUNG (LUNG: RESECTION - All Specimens)8th Edition - Protocol posted: 12/14/2019SPECIMEN Procedure: Lobectomy Specimen Laterality: Left TUMOR Tumor Site: Lower lobe of lung Histologic Type: Invasive adenocarcinoma, lepidic predominant Histologic Grade: G2: Moderately differentiated Spread Through Air Spaces (EMILY): Not identified Tumor Size: Total Tumor Size (size of entire tumor): Greatest Dimension (Centimeters): 1.5 cm Additional Dimension (Centimeters): 0.7 cm Additional Dimension (Centimeters): 0.5 cm Size of Invasive Component: Greatest Dimension (Centim eters): 1.1 cm Tumor Focality: Single focus Visceral Pleura Invasion: Not identified Direct Invasionof Adjacent Structures: No adjacent structures present Treatment Effect: No known presurgical therapy Lymphovascular Invasion: Not identified MARGINS Margins: All margins are uninvolved by tumor Margins Examined: Bronchial Margins Examined: Vascular Margins Examined: Parenchymal Distance of Invasive Carcinoma from Closest Margin (Centimeters): 8.5 cm Closest Margin: Bronchial LYMPH NODES Number of Lymph Nodes Involved: 0 Number of Lymph Nodes Examined: 9 Dusty Stations Examined: 7: Subcarinal Dusty Stations Examined: 8L: Para-esophageal Dusty Stations Examined: 10L: Hilar PATHOLOGIC STAGE CLASSIFICATION (pTNM, AJCC 8th Edition) Primary Tumor (pT): pT1b Regional Lymph Nodes (pN): pN0 [id number], [id number] adenocarcinoma of lower lobe of left lung.Lymph node, paraesophageal station 8, other, lymphnode, subcarinal station 7, lymph node, lymph node subcarinal station 7, lymph node, lymph node, lung left lower lobe A. Received fresh labeled with the patient's name, accession number and "lymph node, paraesophageal station 8, station 8 x2" is a 1.8 x 0.8 x 0.7 cm, alcala-pruitt, tissue fragment with twoblack lymph nodes both approximately 0.6 x 0.4 x 0.3 cm with one previously disrupted. The specimen is submitted in toto following filtration in cassette A1.B. Received fresh labeled with the patient'sname, accession number and "other station 10 lymph node" are two anthracotic soft tissue fragments. The specimen is submitted in toto following filtration in cassette B1.C. Received fresh labeled with the patient's name, accession number and "lymph node, subcarinal, station 7, station 7" is a 1.0 x 0.6 x 0.3 cm anthracotic soft tissue. The specimen is submitted in toto following filtration in cassette C1.D. Received fresh labeled with the patient's name, accession number and "lymph node, station 11 lymph node" is a 1.6 x 0.8 x 0.5 cm anthracotic soft tissue fragment with scant adipose tissue. The specimen is submitted in toto following filtration in cassette D1.E. Received fresh labeled with the patient's name, accession number and "lymph node subcarinal, station 7, station 7 #2" is a 1.4 x 0.6 x0.4 cm anthracotic, irregular soft tissue. The specimen is submitted in toto following filtration incassette E1.F. Received fresh labeled with the patient's name, accession number and "lymph node station 11 #2" is a 0.9 x 0.6 x 0.5 cm anthracotic soft tissue. The specimen is submitted in toto following filtration in cassette F1.G. Received fresh labeled with the patient's name, accession number and "lymph node station 12" is a 1.0 x 0.7 x 0.5 cm anthracotic, disrupted soft tissue. The specimen is submitted in toto following filtration in cassette G1.H. Received fresh labeled with the patient's name, accession number and "lung, left lower lobe, left lower lobe" is a 16.0 x 9.5 x 3.5 cm lung lobectomy resection with a 6.5 cm stapled line containing bronchial and vascular margins, and a 4.3 cm black sutured line. The pleural surface is alcala-pink with diffuse anthracotic pigment and a 10.0 x 7.0 cm,purple, focally hemorrhagic discoloration encompassing the margins on the anterior surface.Serial sectioning of the lung wedge reveals a 1.5 x 0.7 x 0.5 cm, alcala, firm, ill defined mass that is 8.5 cm from the bronchial, vascular, and parenchymal margins, and 0.3 cm from the pleural surface. The remaining lung parenchyma is alcala-red, focally congested with anthracotic pigment. Inside Wirer sections are submitted.Ink code:Douglas-parenchymal marginYellow- serosa Section code:H1-bronchial and vascular margins, en faceH2-parenchymal margin, en faceH3- entire solitary mass, bisected and submitted in totoin one cassette H4-uninvolved parenchymaH5-congested focusJG/ewPerformed. [facility], Department of Pathology, [address] [place] [id number], [facility] of [facility], [address] [place] [id number], [facility], Department of [facility]ology, [address] [place] [id number], OXA, CHEST, 1 VIEW, NON [id number] 08:24:00Reason for exam:->lung expansionShould this be performed at the bedside?->YesFINAL REPORT Chest, one view. HISTORY: lung expansion COMPARISON: Radiograph from yesterday IMPRESSION: The trace left apical pneumothorax is essentially unchanged and has an air gap of approximately 0.4 cm. Prior surgery on the right lung. Mild right basilar subsegmental atelectasis/scarring. The mild left basilar atelectasis has slightly improved. There may be a trace left pleural effusion. The cardiac silhouette is unchanged. No acute bony abnormality. Multiple surgical clipsin the upper abdomen. Signed: Heather Whiting Verified Date/Time: 07/29/2020 08:24:08 Reading Location: [facility] C013Y CT Body Reading Room BASIC METABOLIC [id number] 05:45:00 Test Item Value Reference Range Interpretation Comments SODIUM (BEAKER) 138 meq/L 136-145 (test code = 381) POTASSIUM (BEAKER) 3.9 meq/L 3.5-5.1 (test code = 379) CHLORIDE (BEAKER) 107 meq/L 98-107 (test code = 382) CO2 (BEAKER) (test 26 meq/L 22-29 code = 355) BLOOD UREA NITROGEN 13 mg/dL 7-21 (BEAKER) (test code = 354) CREATININE (BEAKER) 0.86 mg/dL 0.57-1.25 (test code = 358) GLUCOSE RANDOM 105 mg/dL 70-105 (BEAKER) (test code = 652) CALCIUM (BEAKER) 7.8 mg/dL 8.4-10.2 L (test code = 697) EGFR (BEAKER) (test 64 mL/min/1.73 ESTIMA JEFF GFR IS code = 1092) sq m NOT ACCURATE CREATININE CLEARANCE IN PREDICTING GLOMERULAR FILTRATION RATE . ESTIMATED GFR I S NOT APPLICABLE FOR DIALYSIS PATIEN TS. Biofuels Processing Technician ID - PIAYA LCBC W/PLT COUNT & AUTO [id number] 05:42:00 Test Item Value Reference Range Interpretation Comments WHITE BLOOD CELL COUNT (BEAKER) 8.5 K/ L 3.5-10.5 (test code = 775) RED BLOOD CELL COUNT (BEAKER) 3.93 M/ L 3.93-5.22 (test code = 761) HEMOGLOBIN (BEAKER) (test code = 12.2 GM/DL 11.2-15.7 410) HEMATOCRIT (BEAKER) (test code = 38.2 % 34.1-44.9 411) MEAN CORPUSCULAR VOLUME (BEAKER) 97.2 fL 79.4-94.8 H (test code = 753) MEAN CORPUSCULAR HEMOGLOBIN 31.0 pg 25.6-32.2 (BEAKER) (test code = 751) MEAN CORPUSCULAR HEMOGLOBIN CONC 31.9 GM/DL 32.2-35.5 L (BEAKER) (test code = 752) RED CELL DISTRIBUTION WIDTH 13.1 % 11.7-14.4 (BEAKER) (test code = 412) PLATELET COUNT (BEAKER) (test 178 K/CU MM 150-450 code = 756) MEAN PLATELET VOLUME (BEAKER) 11.7 fL 9.4-12.3 (test code = 754) NUCLEATED RED BLOOD CELLS 0 /100 WBC 0-0 (BEAKER) (test code = 413) NEUTROPHILS RELATIVE PERCENT 73 % (BEAKER) (test code = 429) LYMPHOCYTES RELATIVE PERCENT 10 % (BEAKER) (test code = 430) MONOCYTES RELATIVE PERCENT 16 % (BEAKER) (test code = 431) EOSINOPHILS RELATIVE PERCENT 2 % (BEAKER) (test code = 432) BASOPHILS RELATIVE PERCENT 0 % (BEAKER) (test code = 437) NEUTROPHILS ABSOLUTE COUNT 6.17 K/ L 1.56-6.13 H (BEAKER) (test code = 670) LYMPHOCYTES ABSOLUTE COUNT 0.82 K/ L 1.18-3.74 L (BEAKER) (test code = 414) MONOCYTES ABSOLUTE COUNT (BEAKER) 1.32 K/ L 0.24-0.36 H (test code = 415) EOSINOPHILS ABSOLUTE COUNT 0.17 K/ L 0.04-0.36 (BEAKER) (test code = 416) BASOPHILS ABSOLUTE COUNT (BEAKER) 0.02 K/ L 0.01-0.08 (test code = 417) IMMATURE GRANULOCYTES-RELATIVE 0 % 0-1 PERCENT (BEAKER) (test code = 2801) [id number] 05:42:00 Test Item Value Reference Range Interpretation Comments MAGNESIUM (BEAKER) (test code = 1.9 mg/dL 1.6-2.6 627) Biofuels Processing Technician ID - VALENTINA LRAD, CHEST, 1 VIEW, NON [id number] 17:41:00Reason for exam:->lung expansionShould this be performed at the bedside?->YesFINAL REPORT RAD, CHEST, 1 VIEW, NON DEPT CLINICAL INDICATION: lung expansion TECHNIQUE: AP view of the chest COMPARISON: Radiograph 07/28/2020 at 7:18 AM FINDINGS: Left-sided chest tube has been removed. Trace left apical pneumothorax. Unchanged mild left basilar atelectasis. No new focal consolidation. Cardiomediastinal silhouette, noble, and pulmonary vasculature are unchanged.IMPRESSION:Interval removal of left sided chest tube with trace left apical pneumothorax. Signed: [facility] Verified Date/Time: 07/28/2020 17:41:56 RAD, CHEST, 1 VIEW, NON [id number] 07:51:00Reason for exam:->Lung expansionShould this be performed at the bedside?->YesFINAL REPORT Chest, one view HISTORY: Lung expansion, chest tube Comparison: Clear study performed on same date Findings: Lungs: Stable mild left basilar airspace disease. Otherwise, the lungs are clear. Heart: Normal in size. Pleura: No pleural effusion or pneumothorax. Bones: Unremarkable. Lines/tubes: Unchanged position of left chest tube, which terminates at the left pulmonary apex. Signed: Nolberto Costello MDReport Verified Date/Time: 07/28/2020 07:51:28 Reading Location: [facility] C0[facility] Transitional Reading Room [id number] 05:17:00 Test Item Value Reference Range Interpretation Comments MAGNESIUM (BEAKER) (test code = 1.9 mg/dL 1.6-2.6 627) BASIC METABOLIC [id number] 05:17:00 Test Item Value Reference Range Interpretation Comments SODIUM (BEAKER) 136 meq/L 136-145 (test code = 381) POTASSIUM (BEAKER) 3.6 meq/L 3.5-5.1 (test code = 379) CHLORIDE (BEAKER) 105 meq/L 98-107 (test code = 382) CO2 (BEAKER) (test 23 meq/L 22-29 code = 355) BLOOD UREA NITROGEN 12 mg/dL 7-21 (BEAKER) (test code = 354) CREATININE (BEAKER) 0.68 mg/dL 0.57-1.25 (test code = 358) GLUCOSE RANDOM 115 mg/dL 70-105 H (BEAKER) (test code = 652) CALCIUM (BEAKER) 7.5 mg/dL 8.4-10.2 L (test code = 697) EGFR (BEAKER) (test 84 mL/min/1.73 ESTIMA JEFF GFR IS code = 1092) sq m NOT ACCURATE CREATININE CLEARANCE IN PREDICTING GLOMERULAR FILTRATION RATE . ESTIMATED GFR I S NOT APPLICABLE FOR DIALYSIS PATIEN TS. CBC W/PLT COUNT & AUTO [id number] 04:55:00 Test Item Value Reference Range Interpretation Comments WHITE BLOOD CELL COUNT (BEAKER) 11.6 K/ L 3.5-10.5 H (test code = 775) RED BLOOD CELL COUNT (BEAKER) 4.28 M/ L 3.93-5.22 (test code = 761) HEMOGLOBIN (BEAKER) (test code = 13.4 GM/DL 11.2-15.7 410) HEMATOCRIT (BEAKER) (test code = 41.6 % 34.1-44.9 411) MEAN CORPUSCULAR VOLUME (BEAKER) 97.2 fL 79.4-94.8 H (test code = 753) MEAN CORPUSCULAR HEMOGLOBIN 31.3 pg 25.6-32.2 (BEAKER) (test code = 751) MEAN CORPUSCULAR HEMOGLOBIN CONC 32.2 GM/DL 32.2-35.5 (BEAKER) (test code = 752) RED CELL DISTRIBUTION WIDTH 13.2 % 11.7-14.4 (BEAKER) (test code = 412) PLATELET COUNT (BEAKER) (test 191 K/CU MM 150-450 code = 756) MEAN PLATELET VOLUME (BEAKER) 11.5 fL 9.4-12.3 (test code = 754) NUCLEATED RED BLOOD CELLS 0 /100 WBC 0-0 (BEAKER) (test code = 413) NEUTROPHILS RELATIVE PERCENT 82 % (BEAKER) (test code = 429) LYMPHOCYTES RELATIVE PERCENT 5 % (BEAKER) (test code = 430) MONOCYTES RELATIVE PERCENT 13 % (BEAKER) (test code = 431) EOSINOPHILS RELATIVE PERCENT 0 % (BEAKER) (test code = 432) BASOPHILS RELATIVE PERCENT 0 % (BEAKER) (test code = 437) NEUTROPHILS ABSOLUTE COUNT 9.50 K/ L 1.56-6.13 H (BEAKER) (test code = 670) LYMPHOCYTES ABSOLUTE COUNT 0.56 K/ L 1.18-3.74 L (BEAKER) (test code = 414) MONOCYTES ABSOLUTE COUNT (BEAKER) 1.50 K/ L 0.24-0.36 H (test code = 415) EOSINOPHILS ABSOLUTE COUNT 0.01 K/ L 0.04-0.36 L (BEAKER) (test code = 416) BASOPHILS ABSOLUTE COUNT (BEAKER) 0.02 K/ L 0.01-0.08 (test code = 417) IMMATURE GRANULOCYTES-RELATIVE 0 % 0-1 PERCENT (BEAKER) (test code = 2801) RAD, CHEST, 1 VIEW, NON [id number] 04:49:00Reason for exam:->lung expansionShould this be performed at the bedside?->YesFINAL REPORT RAD, CHEST, 1 VIEW, NON DEPT INDICATION: lung expansion COMPARISON: Exam from 16 hours prior FINDINGS: Portable frontal view of the chest. IMPRESSION: Support Lines: Stable left chest tube Lungs and pleura: No consolidation or sizable effusion. No pneumothorax.Heart and mediastinum: Stable contours.Additional findings: None. Signed: Dallas Mueller Verified Date /Time: 07/28/2020 04:49:57 RAD, CHEST, 1 VIEW, NON [id number] 12:34:00Reason for exam:->lung expansionShould this be performed at the bedside?->YesFINAL REPORT RAD, CHEST, 1 VIEW, NON DEPT INDICATION: lung expansion COMPARISON: July 23, 2020 FINDINGS: Portable frontal view of the chest. IMPRESSION: Support Lines: Left thoracostomy tube terminates near the left apex. Lungs and pleura: No discrete consolidation. No visible pn eumothorax.Heart and mediastinum: Stable contours. Additional findings: None. Signed: JR Russo Robert MDReport Verified Date/Time: 07/27/2020 12:34:23 Reading [facility] RadiologyReading [facility] BASI METABOLIC PANEL 2020-07-27 12:07:00 Test Item Value Reference Range Interpretation Comments SODIUM (BEAKER) 140 meq/L 136-145 (test code = 381) POTASSIUM (BEAKER) 4.1 meq/L 3.5-5.1 (test code = 379) CHLORIDE (BEAKER) 112 meq/L 98-107 H (test code = 382) CO2 (BEAKER) (test 22 meq/L 22-29 code = 355) BLOOD UREA NITROGEN 17 mg/dL 7-21 (BEAKER) (test code = 354) CREATININE (BEAKER) 0.89 mg/dL 0.57-1.25 (test code = 358) GLUCOSE RANDOM 137 mg/dL 70-105 H (BEAKER) (test code = 652) CALCIUM (BEAKER) 7.8 mg/dL 8.4-10.2 L (test code = 697) EGFR (BEAKER) (test 62 mL/min/1.73 ESTIMA JEFF GFR IS code = 1092) sq m NOT ACCURATE CREATININE CLEARANCE IN PREDICTING GLOMERULAR FILTRATION RATE . ESTIMATED GFR I S NOT APPLICABLE FOR DIALYSIS PATIEN TS. Biofuels Processing Technician ID - NAFISA [id number] 12:03:00 Test Item Value Reference Range Interpretation Comments PHOSPHORUS (BEAKER) (test code = 3.1 mg/dL 2.3-4.7 604) Biofuels Processing Technician ID - NAFISA [id number] 12:03:00 Test Item Value Reference Range Interpretation Comments MAGNESIUM (BEAKER) (test code = 1.6 mg/dL 1.6-2.6 627) Biofuels Processing Technician ID - NAFISA CPT/[id number] 11:51:00 Test Item Value Reference Range Interpretation Comments PROTIME (BEAKER) (test code = 15.0 seconds 11.9-14.2 H 759) INR (BEAKER) (test code = 370) 1.21 <=5.90 PARTIAL THROMBOPLASTIN TIME 27.3 seconds 22.5-36.0 (BEAKER) (test code = 760) Effective 03/16/2019: PT Reference Range ChangeNew: 11.9-14.2 Previous: 11.7- 14.7RECOMMENDED COUMADIN/WARFARIN INR THERAPY RANGESSTANDARD DOSE: 2.0-3.0 Includes: PROPHYLAXIS for venous thrombosis, systemic embolization; TREATMENT for venous thrombosis and/or pulmonary embolus.HIGH RISK: Target INR is 2.5-3.5 for patients wiht mechanical heart valves.CALCIUM, [id number] 11:48:00 Test Item Value Reference Range Interpretation Comments CALCIUM IONIZED (BEAKER) (test 1.05 mmol/L 1.12-1.27 L code = 698) PH, BLOOD (BEAKER) (test code = 7.33 1810) CBC (HEMOGRAM ONLY)2020-07-27 11:44:00 Test Item Value Reference Range Interpretation Comments WHITE BLOOD CELL COUNT (BEAKER) 11.2 K/ L 3.5-10.5 H (test code = 775) RED BLOOD CELL COUNT (BEAKER) 3.86 M/ L 3.93-5.22 L (test code = 761) HEMOGLOBIN (BEAKER) (test code = 12.1 GM/DL 11.2-15.7 410) HEMATOCRIT (BEAKER) (test code = 37.6 % 34.1-44.9 411) MEAN CORPUSCULAR VOLUME (BEAKER) 97.4 fL 79.4-94.8 H (test code = 753) MEAN CORPUSCULAR HEMOGLOBIN 31.3 pg 25.6-32.2 (BEAKER) (test code = 751) MEAN CORPUSCULAR HEMOGLOBIN CONC 32.2 GM/DL 32.2-35.5 (BEAKER) (test code = 752) RED CELL DISTRIBUTION WIDTH 13.2 % 11.7-14.4 (BEAKER) (test code = 412) PLATELET COUNT (BEAKER) (test 206 K/CU MM 150-450 code = 756) MEAN PLATELET VOLUME (BEAKER) 11.0 fL 9.4-12.3 (test code = 754) NUCLEATED RED BLOOD CELLS 0 /100 WBC 0-0 (BEAKER) (test code = 413) GLUCOSE-STAT [id number] 09:18:00 Test Item Value Reference Range Interpretation Comments GLUCOSE RANDOM (BEAKER) (test code 126 mg/dL 70-110 H = 652) SODIUM NA-STAT [id number] 09:17:00 Test Item Value Reference Range Interpretation Comments SODIUM (BEAKER) (test code = 381) 139 meq/L 136-145 POTASSIUM-STAT [id number] 09:17:00 Test Item Value Reference Range Interpretation Comments POTASSIUM (BEAKER) (test code = 4.0 meq/L 3.6-5.5 379) HGB/HCT (H&H) - STAT [id number] 09:17:00 Test Item Value Reference Range Interpretation Comments HEMOGLOBIN (BEAKER) (test code = 13.0 g/dL 12.0-15.0 410) HEMATOCRIT (BEAKER) (test code = 38.0 % 36.0-45.0 411) BLOOD GAS, [id number] 09:17:00 Test Item Value Reference Range Interpretation Comments PH ARTERIAL (BEAKER) (test code = 7.36 7.35-7.45 383) PCO2 ARTERIAL (BEAKER) (test code 41 mmHg 35-45 = 384) PO2 ARTERIAL (BEAKER) (test code 243 mmHg 80-90 H = 385) O2 SATURATION ARTERIAL (BEAKER) 99.5 % 96.0-97.0 H (test code = 386) HCO3 ARTERIAL (BEAKER) (test code 23 mmol/L 21-29 = 388) BASE EXCESS ARTERIAL (BEAKER) -2.9 mmol/L -2.0-3.0 L (test code = 387) PATIENT TEMPERATURE (BEAKER) 35.0 C (test code = 1818) FIO2 (BEAKER) (test code = 1819) 100.0 % CALCIUM, [id number] 09:15:00 Test Item Value Reference Range Interpretation Comments CALCIUM IONIZED (BEAKER) (test 1.12 mmol/L 1.12-1.27 code = 698) PH, BLOOD (BEAKER) (test code = 7.33 1810) POCT-GLUCOSE [id number] 05:56:00 Test Item Value Reference Range Interpretation Comments POC-GLUCOSE METER 106 mg/dL 70-110 : TESTED A T [facility] 6720 (BEAKER) (test code [facility], = 1538) [address]: Biofuels Processing Technician/Techni kathy ID = [id number] for JORD AN, LACRYSTAL SARS-COV2/RT-PCR ([facility])2020-07-24 01:42:00 Test Item Value Reference Range Interpretation Comments SARS-COV2/RT-PCR (test Negative Not Detected, Negative, code = 7651198) See external report for linked test SARS-COV-2 PERFORMING LAB [facility] (test code = 5920628) Negative result for this test determines that SARS-CoV-2 RNA was not present in the specimen above the Limit of Detection (LOD). However, Negative results do not preclude SARS-CoV-2 infection and should not be used as the sole basis for treatment or patient management decisions. Negative results must be combined with clinical observations, patient history, and epidemiological information. A false negative result may occur if a specimen is improperly collected, transported or handled. A false negative result should be considered if patient's recent exposures or clinical presentation indicate that COVID-19 (SARS-CoV-2) is likely and diagnostic tests for other causes of illness are negative. Re-testing should be considered in cases of suspected false negatives.The limit of detection for this assay is 800 copies/mL.This SARS CoV-2 test is a real-time RT-PCR test intended for the qualitative detection of nucleic acid from SARS-CoV-2 in a nasopharyngeal swab specimen collected from individuals suspected of COVID-19 by their healthcare provider.This test has not been Food and Drug Administration (FDA) cleared or approved. This is a modified version of an approved Emergency Use Authorization (EUA) and is in the process of review by the FDA. Once authorized by the FDA, the issued EUA will be effective until the declaration that circumstances exist justifying the authorization of the emergency use ofin vitro diagnostic tests for detection and/or diagnosis of COVID-19 is terminated under Section 564(b)(2) of the Act or the EUA is revoked under Section 564(g) of the Act.Fact Sheet for Healthcare Prov iders:https://www.[employer]/sites/default/files/product/documents/Fact_Sheet_HC _Zyzuduomw_Gkqu_UEZT-CgJ-7.pdfFact Sheet for Healthcare Patients:https://www.[employer]/sites/default/files/product/docume nts/Rtqi_Yyhbh_Lvhcoqio_Kooz_ZMBK-SmE-4.pdfPerforming Laboratory:[facility].[place], [place] [address]DIGROOZWFZRSS METABOLIC [id number] 14:45:00 Test Item Value Reference Range Interpretation Comments TOTAL PROTEIN 7.0 gm/dL 6.0-8.3 (BEAKER) (test code = 770) ALBUMIN (BEAKER) 4.2 g/dL 3.5-5.0 (test code = 1145) ALKALINE PHOSPHATASE 46 U/L 40-150 (BEAKER) (test code = 346) BILIRUBIN TOTAL 0.7 mg/dL 0.2-1.2 (BEAKER) (test code = 377) SODIUM (BEAKER) (test 142 meq/L 136-145 code = 381) POTASSIUM (BEAKER) 4.4 meq/L 3.5-5.1 (test code = 379) CHLORIDE (BEAKER) 106 meq/L 98-107 (test code = 382) CO2 (BEAKER) (test 28 meq/L 22-29 code = 355) BLOOD UREA NITROGEN 20 mg/dL 7-21 (BEAKER) (test code = 354) CREATININE (BEAKER) 1.08 mg/dL 0.57-1.25 (test code = 358) GLUCOSE RANDOM 93 mg/dL 70-105 (BEAKER) (test code = 652) CALCIUM (BEAKER) 9.2 mg/dL 8.4-10.2 (test code = 697) AST (SGOT) (BEAKER) 19 U/L 5-34 (test code = 353) ALT (SGPT) (BEAKER) 15 U/L 6-55 (test code = 347) EGFR (BEAKER) (test 49 mL/min/1.73 ESTIMA JEFF GFR IS code = 1092) sq m NOT ACCURATE CREATININE CLEARANCE IN PREDICTING GLOMERULAR FILTRATION RATE . ESTIMATED GFR I S NOT APPLICABLE FOR DIALYSIS PATIEN TS. Biofuels Processing Technician ID - EZRA FPT/[id number] 14:40:00 Test Item Value Reference Range Interpretation Comments PROTIME (BEAKER) (test code = 13.6 seconds 11.9-14.2 759) INR (BEAKER) (test code = 370) 1.07 <=5.90 PARTIAL THROMBOPLASTIN TIME 28.9 seconds 22.5-36.0 (BEAKER) (test code = 760) Effective 03/16/2019: PT Reference Range ChangeNew: 11.9-14.2 Previous: 11.7- 14.7RECOMMENDED COUMADIN/WARFARIN INR THERAPY RANGESSTANDARD DOSE: 2.0-3.0 Includes: PROPHYLAXIS for venous thrombosis, systemic embolization; TREATMENT for venous thrombosis and/or pulmonary embolus.HIGH RISK: Target INR is 2.5-3.5 for patients wiht mechanical heart valves.CBC W/PLT COUNT & AUTO [id number] 14:31:00 Test Item Value Reference Range Interpretation Comments WHITE BLOOD CELL COUNT (BEAKER) 5.3 K/ L 3.5-10.5 (test code = 775) RED BLOOD CELL COUNT (BEAKER) 4.43 M/ L 3.93-5.22 (test code = 761) HEMOGLOBIN (BEAKER) (test code = 13.9 GM/DL 11.2-15.7 410) HEMATOCRIT (BEAKER) (test code = 42.8 % 34.1-44.9 411) MEAN CORPUSCULAR VOLUME (BEAKER) 96.6 fL 79.4-94.8 H (test code = 753) MEAN CORPUSCULAR HEMOGLOBIN 31.4 pg 25.6-32.2 (BEAKER) (test code = 751) MEAN CORPUSCULAR HEMOGLOBIN CONC 32.5 GM/DL 32.2-35.5 (BEAKER) (test code = 752) RED CELL DISTRIBUTION WIDTH 13.2 % 11.7-14.4 (BEAKER) (test code = 412) PLATELET COUNT (BEAKER) (test 234 K/CU MM 150-450 code = 756) MEAN PLATELET VOLUME (BEAKER) 11.8 fL 9.4-12.3 (test code = 754) NUCLEATED RED BLOOD CELLS 0 /100 WBC 0-0 (BEAKER) (test code = 413) NEUTROPHILS RELATIVE PERCENT 65 % (BEAKER) (test code = 429) LYMPHOCYTES RELATIVE PERCENT 20 % (BEAKER) (test code = 430) MONOCYTES RELATIVE PERCENT 12 % (BEAKER) (test code = 431) EOSINOPHILS RELATIVE PERCENT 2 % (BEAKER) (test code = 432) BASOPHILS RELATIVE PERCENT 1 % (BEAKER) (test code = 437) NEUTROPHILS ABSOLUTE COUNT 3.47 K/ L 1.56-6.13 (BEAKER) (test code = 670) LYMPHOCYTES ABSOLUTE COUNT 1.04 K/ L 1.18-3.74 L (BEAKER) (test code = 414) MONOCYTES ABSOLUTE COUNT (BEAKER) 0.61 K/ L 0.24-0.36 H (test code = 415) EOSINOPHILS ABSOLUTE COUNT 0.13 K/ L 0.04-0.36 (BEAKER) (test code = 416) BASOPHILS ABSOLUTE COUNT (BEAKER) 0.05 K/ L 0.01-0.08 (test code = 417) IMMATURE GRANULOCYTES-RELATIVE 0 % 0-1 PERCENT (BEAKER) (test code = 2801) RAD, CHEST, 2 [id number] 14:05:00Reason for exam:->pre-op exam Should this be performed at the bedside?->YesFINAL REPORT INDICATION: pre-op exam COMPARISON: June 20, 2020 TECHNIQUE: Frontal and lateral views of the chest. FINDINGS: Lungs and pleura: Clear lungs. No effusion.Heart andmediastinum: Normal heart size. Unremarkable mediastinal contours.Osseous structures: No acute abnormality.Additional findings: None. IMPRESSION: No acute intrathoracic abnormality. Signed: JR Russo Robert [facility] Verified Date/Time: 07/23/2020 14:05:01 Reading Location: [facility] Radiology Reading Room FUNGUS CULTURE + [id number] 18:44:00 Test Item Value Reference Range Interpretation Comments CULTURE (BEAKER) (test No fungus isolated in code = 1095) 28 days FUNGUS SMEAR (BEAKER) No fungi seen (test code = 1406) FUNGUS CULTURE + [id number] 18:44:00 Test Item Value Reference Range Interpretation Comments CULTURE (BEAKER) (test No fungus isolated in code = 1095) 28 days FUNGUS SMEAR (BEAKER) No fungi seen (test code = 1406) MISCELLANEOUS LAB [id number] 15:04:00 Test Item Value Reference Range Interpretation Comments SCAN RESULT (test code = 9248333) [id number] 11:23:00Medical Cytology Report Case: [id number] Authorizing Provider: Ivis Bennett MD Collected: 06/20/2020 03:15 PM Ordering Location: [facility] Received: 06/20/2020 04:32 PM SERVICES Pathologist: Mila Christianson MD Specimen: Lung, Left Lower Lobe This amendment is issued to change the site of the brushing to "LEFT LOWER LOBE" FROM "LEFT UPPER LOBE" . The diagnosis remains the same.LUNG, LEFT LOWER LOBE, BRUSHING (CYTOSPINS): - RARE MALIGNANT CELLS PRESENT ( SEE COMMENT) Signing Pathologist Direct Phone Line: [phone] electronically signed by Mila Christianson MD on 07/03/2020 at 11:23 AM Please see cases [id number] and [id number] trhough [id number] for additional [id number] cancer s/p chemo/radiation therapy( 2011)- 8.0 ETT, Mil 2, grade 1 as per record from wedge resection in 2014; s/p right VATS wedge resection February 2015 for right lower lobe lung adenocarcinoma (minimally invasive)([id number]); left breast DCIS in 2015; renal cell carcinoma, clear cell variant, s/p left nephrectomy (1998); 23 pack years, former smoker LEFT LOWER LOBE LUNG BRUSHING 1 brush tip in 35 mls cytorich red; 2 cytospinsCollected: [id number]: [id number].[facility], Department of Pathology, [address] [place] [address], [facility], [address] [place] [address], [facility]ovTem[facility], Department of Pathology, [address] [place] [address], OVRINJINCW OBTAINED CULTURE + GRAM [id number] 13:40:00 Test Item Value Reference Range Interpretation Comments CULTURE (BEAKER) (test code No growth = 1095) GRAM STAIN RESULT (BEAKER) 1+ WBCs (test code = 1123) GRAM STAIN RESULT (BEAKER) No organisms seen (test code = 03842) BRONCHIAL CULTURE + GRAM [id number] 10:14:00 Test Item Value Reference Range Interpretation Comments CULTURE (BEAKER) (test code No growth = 1095) GRAM STAIN RESULT (BEAKER) <1+ WBCs (test code = 1123) GRAM STAIN RESULT (BEAKER) No organisms seen (test code = 55886) TISSUE [id number] 11:34:00Surgical Pathology Report Case: [id number] Authorizing Provider: Ivis Bennett MD Collected: 06/20/2020 03:16 PM Ordering Location: [facility] Received: 06/20/2020 04:31 PM SERVICES Pathologist: Sony Caceres MD Specimen: Lung, Left Lower Lobe, TBBX. Process in Cytology for Collodion Bag. Reflex Genetic Markers. PART A LEFT LOWER LOBE LUNG, BIOPSY:ADENOCARCINOMA. Signing Pathologist Direct Phone Line: [phone] signed by Sony Caceres MD on 06/22/2020 at 1 1:34 AMImmunohistochemical studies performed on block A1 demonstrates the tumor cells to be positivefor TTF1 and Napsin A, compatible with an adenocarcinoma of pulmonary origin.86312, 68314, 27452Xypzzybqu cancer s/p chemo/radiation therapy( 2011)- 8.0 ETT, Mil 2, grade 1 as per record from wedge resection in 2014; s/p right VATS wedge resection February 2015 for right lower lobe lung adenocarcinoma (minimally invasive)([id number]); left breast DCIS in 2016; renal cell carcinoma, clear cell variant, s/p left nephrectomy (1998); 23 pack years, former smoker A. Lung, Left Lower Lobe, Transbronchial biopsySpecimen A: The specimen is received in a formalin-filled container and labeled with the patient's information and labeled "Lung, Left Lower Lobe Transbronchial biopsy" and consists of eight red 0.2 cm fragments; three red/white 0.2 cm fragments; 0.3 cm white ragged fragment, submitted entirely in A1 diana mesh bag. PERFORMED. The interpretation of this case included the use of immunohistochemistry or sp ecial stains.BLOCK A1- TTF1, NAPSIN AControl Slides Examined: In-house known positive controls were evaluated along with the test tissue. These control slides run alongside of the patients sample show appropriate staining. Internal positive and negative controls when available are evaluated Immunohistochemistry technical testing was performed at [facility], Pathology Laboratory where it was developed and its performance characteristics were determined. It has not been cleared or approved by the U.S. Food and Drug Administration. The FDA has determined that such clearance or approval is not necessary. The test is used for clinical purposes. It should not be regarded as investigational or for research. This laboratory is certified under the Clinical Laboratory Improvement Amendments of 1988 (CLIA-88) as qualified to perform high complexity clinical laboratory testing.[facility], Department of Pathology, [address] [place], [place] [id number], [facility], Department of Pathology, [address] [place] [address], PgmiqfTem[facility], Department of Pathology, [address] [place], [place] [address], GUQP NEEDLE ASPIRATE BY [id number] 10:23:00Medical Cytology Report Case: [id number] Authorizing Provider: Ivis Bennett MD Collected: 06/20/2020 03:37 PM Ordering Location: [facility] Received: 06/20/2020 04:32 PM SERVICES Pathologist: Mila Christianson MD Specimen: Lymph Node, Interlobar, Left, Station 11L LYMPH NODE, INTERLOBAR, LEFT, STATION 11L EBUS FNA BY CLINICIAN (CYTOSPINS AND CELL BLOCK OF ASPIRATE): - PREDOMINANTLY BLOOD (SEE COMMENT) Signing Pathologist Direct Phone Line: [phone] signed by Mila Christianson MD on 06/22/2020 at 10:23 AMThe biopsy is comprised of blood predominantly. Lymphocytes seen could be from blood. Please see cases [id number] and [id number] trhough [id number], [id number] cancer s/p chemo/radiation therapy( 2011)- 8.0 ETT, Mil 2, grade 1 as per record from wedge resection in 2014; s/p right VATS wedge resection February 2015 for right lower lobe lung adenocarcinoma (minimally invasive)([id number]); left breast DCIS in 2015; renal cell carcinoma, clear cell variant, s/p left nephrectomy (1998); 23 pack years, former smoker LYMPH NODE, INTERLOBAR, LEFT, STATION 11L EBUS FNA37 mls in cytorich red; 2 cytospins, cell blockCollected: [id number]: [id number].The interpretation of this case included the use of immunohistochemistry or special stains.Control Slides Examined: In-house known positive controls were evaluated along with the test tissue. These control slides run alongside of the patients sample show appropriate staining. Internal positive and negative controls when available are evaluated Immunohistochemistry technical testing was performed at [facility], Pathology Laboratory where it was developed and its performance characteristics were determined. It has not been cleared or approved by the U.S. Food and Drug Administration. The FDA has determined that such clearance or approval is not necessary. The test is used for clinical purposes. It should not be regarded as investigational or for research. This laboratory is certified under the Clinical Laboratory Improvement Amendments of 1988 (CLIA-88) as qualified to perform high complexity clinical laboratory testing.[facility], Department of Pathology, [address] [place] [address], [place] [address], V[facility]tiTem[facility], Department of Pathology, [address] [place] [address], JznhxqTem[facility], Department of Pathology, [address] [place] [address] 386[address], [id number] 17:48:00Medical Cytology Report Case: [id number] Authorizing Provider: Ivis Bennett MD Collected: 06/20/2020 03:18 PM Ordering Location: [facility] Received: 06/20/2020 04:32 PM SERVICES Pathologist: Mila Christianson MD Specimen: Lung, Left Lower Lobe, BAL LEFT LOWER LOBE LUNG BAL (CYTOSPINS): - RARE ATYPICAL CELLS PRESENT ( SEE COMMENT) Signing Pathologist Direct Phone Line: [phone] signed by Mila Christianson MD on 06/21/2020 at 5:48 PMPlease see cases [id number] and [id number] [facility] [id number] cancer s/p chemo/radiation therapy( 2011)- 8.0 ETT, Mil 2,grade 1 as per record from wedge resection in 2014; s/p right VATS wedge resection February 2015 for right lower lobe lung adenocarcinoma (minimally invasive)([id number]); left breast DCIS in 2016; renal cellcarcinoma, clear cell variant, s/p left nephrectomy (1998); 23 pack years, former smoker LEFT LOWER LOBE LUNG BAL5 mls bloody fluid; 4 cytospinsCollected: [id number]: [id number].[facility], Department of Pathology, [address] [place] [address], Tel [phone] [facility] Hospital, Department of Pathology, [address] [place] [address], XhurdiTemple [facility], Department of Pathology, [address] [place] [address], VHBK NEEDLE ASPIRATION BY [id number] 17:43:00Medical Cytology Report Case: [id number] Authorizing Provider: Ivis Bennett MD Collected: 06/20/2020 03:13 PM Ordering Location: [facility] Received: 06/20/2020 04:32 PM SERVICES Pathologist: Mila Christianson MD Specimen: Lung, Left Lower Lobe LEFT LOWER LOBE LUNG FNA BY CLINICIAN (CYTOSPINS AND CELL BLOCK OF ASPIRATE): - POSITIVE FOR MALIGNANCY (SEE COMMENT) Signing PathologistDirect Phone Line: [phone] signed by Mila Christianson MD on 06/21/2020 at 5:43 PMPlease see cases [id number] and [id number] trhough 2144 for additional hrkdbezrtic41501, 78176Znbtbqgql cancer s/p chemo/radiation therapy( 2011)- 8.0 ETT, Mil 2, grade 1 as per record from wedge resection in 2014; s/p right VATS wedge resection February 2015 for right lower lobe lung adenocarcinoma (minimally invasive)([id number]); left breast DCIS in 2015; renal cell carcinoma, clear cell variant, s/p left nephrectomy (1998); 23 pack years, former smoker LUNG, LEFT LOWER LOBE FNAReceived 33 ml cytorichred fixative sample; prepared cell block(A2) and 4 cytospinsCollected: [id number]: [id number].The interpretation of this case included the use of immunohistochemistry or special stains.ControlSlides Examined: In-house known positive controls were evaluated along with the test tissue. These control slides run alongside of the patients sample show appropriate staining. Internal positive and negative controls when available are evaluated Immun[facility]ochemistry [facility] where it was developed and its performance characteristics were determined. It has not been cleared or approved by the U.S. Food and Drug Administration. The FDA has determined that such clearance or approval is not necessary. The test is used forclinical purposes. It should not be regarded as investigational or for research. This laboratory is certified under the Clinical Laboratory Improvement Amendments of 1988 (CLIA-88) as qualified to perform high complexity clinical laboratory testing.[facility], Department of Pathology, [address] [place] [address], [place] [address], YcexdaTemple Community Hospital, Department of Pathology, [address] [place] [address], YjrfdsTemple Community Hospital, Department of Pathology, [address] [place] [address], HXFP/CONCENTRATION [id number] 03:07:00 Test Item Value Reference Range Interpretation Comments CONCENTRATION CHARGED (BEAKER) (test Done code = 2657) SPIN/CONCENTRATION [id number] 03:06:00 Test Item Value Reference Range Interpretation Comments CONCENTRATION CHARGED (BEAKER) (test Done code = 2657) EBUS FNA [id number] 18:00:00 Test Item Value Reference Range Interpretation Comments CYTOLOGY RESULT POINTER See Separate Report (BEAKER) (test code = 2629) CYTOLOGY [id number] 18:00:00 Test Item Value Reference Range Interpretation Comments CYTOLOGY RESULT POINTER See Separate Report (BEAKER) (test code = 2629) CYTOLOGY [id number] 18:00:00 Test Item Value Reference Range Interpretation Comments CYTOLOGY RESULT POINTER See Separate Report (BEAKER) (test code = 2629) FINE NEEDLE ASPIRATE (FNA) [id number] 18:00:00 Test Item Value Reference Range Interpretation Comments CYTOLOGY RESULT POINTER See Separate Report (BEAKER) (test code = 2629) RAD, CHEST, 1 VIEW, NON [id number] 16:32:00Reason for exam:->s/p LLL TBBX, rule out PTXFINAL REPORT CHEST ONE VIEW HISTORY: Status post left lower lobe biopsy, evaluate for pneumothorax COMPARISON: CT chest of 06/19/2020 FINDINGS: Single portable AP examination of thechest was performed. No left-sided pneumothorax is visualized. The nodular opacity in the lower leftlung is not as well visualized radiographically as on CT. Area of architectural distortion in the lower right lung is without appreciable change. No new pulmonary opacities are identified. Cardiac shadow at the upper limits of normal in size. Thoracic aorta mildly tortuous and calcified. There are dege nerative changes in the spine. Signed: Chon Monroyeport Verified Date/Time: 06/20/2020 16:32:55Reading Location: [facility] Radiology Reading Room FL, FLUORO, NON-SPECIFIC, UP TO 1 [id number] 15:30:00Reason for exam:->bronch procedureFluoroscopic unit utilized for a procedure performed in the OR. No interpretation was requested. Refer to the operative report for findings. Refer to PACS for patient radiation dose information.COMPREHENSIVE METABOLIC [id number] 10:59:00 Test Item Value Reference Range Interpretation Comments TOTAL PROTEIN 6.6 gm/dL 6.0-8.3 (BEAKER) (test code = 770) ALBUMIN (BEAKER) 4.0 g/dL 3.5-5.0 (test code = 1145) ALKALINE PHOSPHATASE 44 U/L 40-150 (BEAKER) (test code = 346) BILIRUBIN TOTAL 0.7 mg/dL 0.2-1.2 (BEAKER) (test code = 377) SODIUM (BEAKER) (test 141 meq/L 136-145 code = 381) POTASSIUM (BEAKER) 3.9 meq/L 3.5-5.1 (test code = 379) CHLORIDE (BEAKER) 108 meq/L 98-107 H (test code = 382) CO2 (BEAKER) (test 26 meq/L 22-29 code = 355) BLOOD UREA NITROGEN 16 mg/dL 7-21 (BEAKER) (test code = 354) CREATININE (BEAKER) 0.99 mg/dL 0.57-1.25 (test code = 358) GLUCOSE RANDOM 95 mg/dL 70-105 (BEAKER) (test code = 652) CALCIUM (BEAKER) 9.0 mg/dL 8.4-10.2 (test code = 697) AST (SGOT) (BEAKER) 17 U/L 5-34 (test code = 353) ALT (SGPT) (BEAKER) 16 U/L 6-55 (test code = 347) EGFR (BEAKER) (test 54 mL/min/1.73 ESTIMA JEFF GFR IS code = 1092) sq m NOT ACCURATE CREATININE CLEARANCE IN PREDICTING GLOMERULAR FILTRATION RATE . ESTIMATED GFR I S NOT APPLICABLE FOR DIALYSIS PATIEN TS. Biofuels Processing Technician ID - [id number] TIME/[id number] 10:55:00 Test Item Value Reference Range Interpretation Comments PROTIME (BEAKER) (test code = 14.0 seconds 11.9-14.2 759) INR (BEAKER) (test code = 370) 1.11 <=5.90 Effective 03/16/2019: PT Reference Range ChangeNew: 11.9-14.2 Previous: 11.7- 14.7RECOMMENDED COUMADIN/WARFARIN INR THERAPY RANGESSTANDARD DOSE: 2.0-3.0 Includes: PROPHYLAXIS for venous thrombosis, systemic embolization; TREATMENT for venous thrombosis and/or pulmonary embolus.HIGH RISK: Target INR is 2.5-3.5 for patients wiht mechanical heart valves.[id number] 10:55:00 Test Item Value Reference Range Interpretation Comments PARTIAL THROMBOPLASTIN TIME 29.4 seconds 22.5-36.0 (BEAKER) (test code = 760) CBC W/PLT COUNT & AUTO [id number] 10:37:00 Test Item Value Reference Range Interpretation Comments WHITE BLOOD CELL COUNT (BEAKER) 5.1 K/ L 3.5-10.5 (test code = 775) RED BLOOD CELL COUNT (BEAKER) 4.26 M/ L 3.93-5.22 (test code = 761) HEMOGLOBIN (BEAKER) (test code = 13.4 GM/DL 11.2-15.7 410) HEMATOCRIT (BEAKER) (test code = 41.2 % 34.1-44.9 411) MEAN CORPUSCULAR VOLUME (BEAKER) 96.7 fL 79.4-94.8 H (test code = 753) MEAN CORPUSCULAR HEMOGLOBIN 31.5 pg 25.6-32.2 (BEAKER) (test code = 751) MEAN CORPUSCULAR HEMOGLOBIN CONC 32.5 GM/DL 32.2-35.5 (BEAKER) (test code = 752) RED CELL DISTRIBUTION WIDTH 13.2 % 11.7-14.4 (BEAKER) (test code = 412) PLATELET COUNT (BEAKER) (test 187 K/CU MM 150-450 code = 756) MEAN PLATELET VOLUME (BEAKER) 11.4 fL 9.4-12.3 (test code = 754) NUCLEATED RED BLOOD CELLS 0 /100 WBC 0-0 (BEAKER) (test code = 413) NEUTROPHILS RELATIVE PERCENT 66 % (BEAKER) (test code = 429) LYMPHOCYTES RELATIVE PERCENT 19 % (BEAKER) (test code = 430) MONOCYTES RELATIVE PERCENT 10 % (BEAKER) (test code = 431) EOSINOPHILS RELATIVE PERCENT 3 % (BEAKER) (test code = 432) BASOPHILS RELATIVE PERCENT 1 % (BEAKER) (test code = 437) NEUTROPHILS ABSOLUTE COUNT 3.38 K/ L 1.56-6.13 (BEAKER) (test code = 670) LYMPHOCYTES ABSOLUTE COUNT 0.98 K/ L 1.18-3.74 L (BEAKER) (test code = 414) MONOCYTES ABSOLUTE COUNT (BEAKER) 0.53 K/ L 0.24-0.36 H (test code = 415) EOSINOPHILS ABSOLUTE COUNT 0.14 K/ L 0.04-0.36 (BEAKER) (test code = 416) BASOPHILS ABSOLUTE COUNT (BEAKER) 0.05 K/ L 0.01-0.08 (test code = 417) IMMATURE GRANULOCYTES-RELATIVE 0 % 0-1 PERCENT (BEAKER) (test code = 2801) CT, CHEST, WITHOUT IV [id number] 08:33:00 NEED 0.625mm CUTS FOR FUSION , Tigre ONLY, TARAS BRONCH PROTOCOLUnlisted Reason for Exam - ClickYes and Enter Reason Below->YesUnlisted Reason for Exam->C09.9, C34.32, R91.1FINAL REPORT CT of the chest, without contrast Clinical History: Unlisted Reason for ExamC09.9, C34.32, R91.1 Technique: CT of the chest is performed without intravenous contrast administration. This exam was performed according to our departmental dose optimization program which includes automated exposure control, adjustment of the mA and/or kV according to patient's size and/or use of iterative reconstructive technique. Comparison Film: May 23, 2020, May 25, 2019, May 12, 2018 and PET/CT dated June 05, 2020 Discussion: Visualized thyroid gland is normal. No supraclavicular, axillary, mediastinal or hilar lymphadenopathy. Heart and pericardium are unremarkable. Again noted is scarring and architectural distortion in the right lower lobe. An irregularly shaped nodule in the left lower lobe measures approximately 1 x 1.4 cm, without interval change, but larger when compared to more remote studies. It also demonstrates hypermetabolic activity on the recent PET/CT. Several small nodules in both upper lobes, some of groundglass, also remaining unchanged. There is no pleural effusion. Central airways are patent, no bronchiectasis or bronchial wall thickening. Status post left nephrectomy. Bony structures demonstrate degenerative changes. No suspicious bony lesion is identified. There is a stable nodular opacity in the left breast, with surgical clips. Impression: Suspicious nodule in the left lower lobe. Signed: Luda Wu MDReport Verified Date/Time: 06/20/2020 08:33:30 Reading Location: [facility] C013X Ortho Consult Reading Room PET/CT, SKULL BASE TO MID-THIGH [id number] 10:48:00Unlisted Reason for Exam - Click Yes and Enter Reason Below->YesUnlisted Reason for Exam->R91.1 C34.90FINAL REPORT EXAMINATION: FDG-PET/CT, 06/05/2020 12:09 PM CLINICAL HISTORY: Newly diagnosed non-small cell lung carcinoma.INDICATION: FDG-PET/CT is obtained for initial treatment evaluation.COMPARISON: Chest CT 05/23/2020 TECHNIQUE:Radiopharmaceutical: F-18 FluorodeoxyglucoseAdministered activity: 9.4] mCiRoute of administration: Intravenously via the right antecubital veinLocalization time: 84 minutesScan extent: Skull base to the proximal thighsAdditional imaging: NoneSerum bloodglucose: 95 mg/dlCPT Code: 24995 FINDINGS:Head and Neck: Prominent radiotracer activity at the levelof the larynx is consistent with physiologic uptake. There is no dusty hypermetabolism along the cervical chains. Chest: The spiculated 1.6 cm left lower lobe nodule is hypermetabolic on PET scanning, with an SUV of 5.9. Additional subcentimeter nodules and linear pulmonary opacities show only low-grade radiotracer activity, and are stable compared to prior CT. There is no dusty hypermetabolism in med iastinal, hilar, or axillary chains. Dense coronary arterial calcifications. An oval soft tissue density with associated dense calcifications in the upper outer quadrant of the left breast demonstrateslow-grade (SUV = 1.5) FDG activity. There is slight retraction of the overlying skin, consistent with scarring. Tracer uptake in the breast parenchyma is otherwise normal and symmetric. Abdomen and Pelvis: The adrenal glands are normal in appearance on both PET and CT. Small benign cyst in the left hepatic lobe remains stable. Status post left nephrectomy. There is compensatory hypertrophy of the right kidney. Parapelvic renal cysts on the right. Distal colonic diverticula, without evidence of divert iculitis. Musculoskeletal: No focal sites of osseous hypermetabolism. No suspicious lytic or sclerotic osseous lesions are seen on the CT portion of the examination. Degenerative changes in the spine. IMPRESSION: 1.Hypermetabolic left lower lobe pulmonary nodule, consistent with newly diagnosed non-small cell lung carcinoma. There is no evidence of regional or distant metastatic disease.2.Additional pulmonary nodules remain stable compared to prior CT. As many of these are at or below the resolutionlimits of PET scanning, CT follow-up is recommended to assure ongoing stability.3.Postsurgical changes in the upper outer quadrant of the left breast, showing the expected degree of low-grade radiotracer activity. Signed: João Strong MDReport Verified Date/Time: 06/06/2020 10:48:02 POCT-GLUCOSE [id number] 12:52:00 Test Item Value Reference Range Interpretation Comments POC-GLUCOSE METER 95 mg/dL 70-110 : TESTED A T [facility] 6720 ([facility]) (test code = [facility], 1538) [address]: Biofuels Processing Technician/Techni kathy ID = [id number] for Florentino Johnson CT, CHEST, WITH IV [id number] 11:41:00FINAL REPORT TECHNIQUE: CT scan of the chest WITH intravenous contrast. Dose modulation, iterative reconstruction, and/or weight-based adjustment of the mA/kV was utilized to reduce the radiation dose to as low as reasonably achievable. INDICATION: MALIGNANT NEOPLASM OF LOWER LOBEOF LT LUNG. COMPARISON: Chest CTs dating back to 05/05/2016. FINDINGS: LINES/TUBES: None. LUNGS AND AIRWAYS: The findings of a prior wedge resection in the right lower lobe are unchanged dating back to 05/05/2016. Pulmonary nodules as follow:*A right apical groundglass opacity on axial image 22 measures0.5 x 0.4 cm, unchanged.*A right upper lobe groundglass opacity on axial image 27 measures 0.3 cm, unchanged.*An interstitial and groundglass opacity in the right upper lobe measures 0.6 x 0.4 cm on axial image 39, unchanged.*A groundglass opacity in the superior segment of the left lower lobe measures 0.5 cm on axial image 32, unchanged.*A left upper lobe groundglass nodule on axial image 26 measures 0.5 cm, unchanged.*A left upper lobe partially solid and partially groundglass nodule on axial image 23 measures 0.4 cm, previously 0.3 cm.*Left lower lobe nodule on axial image 85 measures 0.7 x 1.6 cm, previously 0.5 x 1.1 cm.*A left lower lobe nodule on axial image 50 measures 0.3 cm, unchanged. PLEURA: The pleural spaces are clear. HEART AND MEDIASTINUM: The visualized thyroid gland is normal. No significant mediastinal, hilar, or axillary lymphadenopathy. The heart and pericardium are within normal limits. Moderate atherosclerosis of the aortic arch, descending thoracic aorta, and arch branchvessels. Moderate calcification of the left main, left anterior descending, and right coronary arteries. SOFT TISSUES AND BONES: Prior left breast lumpectomy. Moderate degenerative disc changes of the lower thoracic spine. UPPER ABDOMEN: A cyst in segment II measures 0.8 cm and is unchanged. IMPRESSION: 1.A left lower lobe solid pulmonary nodule has increased in size compared to the prior and is concerning for malignancy. A PET/CT is recommended for further evaluation. 2.Several other bilateral lungnodules are unchanged. Signed: Heather Whiting MDReport Verified Date/Time: 05/23/2020 11:41:43 Reading Location: [address] Consult Reading Room [id number] 09:25:00 Test Item Value Reference Range Interpretation Comments POC-CREATININE 1.0 mg/dL 0.6-1.3 : TESTED AT [facility] ([facility]) (test [address] [facility] Bhav[facility] code = 1859) A, [facility] 7 5818: Biofuels Processing Technician/Techni kathy ID = [id number] for JOSLYN LIVINGSTON ICA POC-EGFR 54 mL/min/1.73M2 (LAZARO) (test code = 1860) RAD, BONE DENSITY [id number] 15:06:00Reason for Exam:->ductal carcinoma in situ of left breastFINAL REPORT EXAM: BONE MINERAL DENSITYHISTORY: Bone mineralization evaluationCOMPARISON: NoneDISCUSSION: Evaluation of the left hip and lumbar spine was performed utilizing DEXA Hologic bone densitometer. The study is technically adequate. Left hip femoral neck bone mineral density: 0.57 g/cm2, T-score is -2.5, Z-score is -0.3. Left hip total bone mineral density: 0.67 g/cm2, T-score is -2.3, Z-score is -0.4. Lumbar spine total bone mineral density: 1.07 gm/cm2, T-score is 0.2, Z-score is 2.7. Impression:Bone mineralization by WHO Classification is osteoporosis, the fracture risk is increased. Signed: Gerardo Beckham [facility]sil[facility] Verified Date/Time: 07/25/2019 15:06:52 TISSUE [id number] 15:07:00Surgical Pathology Report Case: [id number] Authorizing Provider: Diogo Miller MD Collected: 04/19/2018 [id number] Ordering Location: [facility] Received: 04/19/2018 1101 SERVICES Pathologist: Christy Ramírez MD Specimens: A) - Polyp, Colon - Hepatic Flexure, HEPATIC FLEXURE COLON POLYP WITH HOTSNARE, 0.5ml ELEVIEW INJECTION AND DURACLIP x1 B) - Polyp, Colon - Transverse, Transverse colon polyp with 0.5ml Eleview injection and hot snare C) - Polyp, Colon - Sigmoid, Sigmoid colon polyp with 0.5ml Eleview injection and cold snare D) - Polyp, Colon - Sigmoid, Sigmoid colon polyp #2 with 0.5ml Eleview injection and cold snare, duraclip x2 E) - Polyp, Colon - Sigmoid, Sigmoid colon polyp #3 with 1ml Eleview injection and hot snare, duraclip x2 A. HEPATIC FLEXURE POLYP, HOT SNARE POLYPECTOMY: - FRAGMENTS OF TUBULAR ADENOMA B. TRANSVERSE COLON POLYP, HOT SNARE POLYPECTOMY: - FRAGMENT OF TUBULAR ADENOMAC. SIGMOID COLON POLYP, COLD SNARE POLYPECTOMY: - FRAGMENT OF TUBULAR ADENOMAD. SIGMOID COLON POLYP #2, COLD SNARE POLYPECTOMY: - TUBULAR ADENOMA E. SIGMOID COLON POLYP #3, HOT SNARE POLYPECTOMY: - FRAGMENT OF TUBULAR ADENOMASJ/pl Signing Pathologist Direct Phone Line: [phone] signed by Christy Ramírez MD on 04/20/2018 at 3:07 PMEndoscopic report reviewed. [id number] for colon cancer A. Hepatic flexure colon polyp. B. Transverse colon polyp. C. Sigmoid colon polyp. D. Sigmoid colon polyp. E. Sigmoid colon polypSpecimen is received in five containers of formalin all labeled with the patient's information.Specimen A: Labeled "hepatic flexure colon polyp" consists of two fragments of [place] tissue measuring 0.1 and 0.3 cm, submitted in A1.Specimen B: Labeled "transversecolon polyp" consists of a 0.4 cm fragment of [place] tissue, submitted in B1.Specimen C: Labeled "sigmoid colon polyp" consists of a 0.5 cm fragment of [place] tissue submitted in C1.Specimen D: Labeled "sigmoid colon polyp #2" consists of a 0.5 cm fragment of [place] tissue submitted in D1.Specimen E: Labeled "sigmoid colon polyp #3" consists of multiple fragments of [place] tissue ranging from less than 0.1 to 0.4 cm, submitted in E1. CG/ewPerformed
[2023-08-19 22:05] LABS: Absolute Lymphocytes (CBC) 0.7 K/uL (0.7-4.9); Hematocrit 41.3 % (36.0-45.0); MCV 92.6 fL (80-100); Platelets 237 thou/uL (152-406); RBC Red Blood Cell Count 4.46 M/uL (3.86-4.86)
[2023-08-19 22:11] LABS: Protime INR 1.18
[2023-08-19] MEDS ORDERED: METHYLPREDNISOLONE 40 MG INJ ONE (22:15)
[2023-08-19] MEDS ORDERED: LEVALBUTEROL 1.25 MG/3 ML NEB ONE (22:16)
[2023-08-19] MEDS ORDERED: IPRATROPIUM BROM 0.5MG/2.5ML ONE (22:16)
[2023-08-19] MEDS ORDERED: NA CHLORIDE 0.9% 500 ML ONE (22:16)
[2023-08-19] MEDS ORDERED: FAMOTIDINE 20 MG/2 ML VIAL IV ONE (22:16)
[2023-08-19] MEDS ORDERED: Levofloxacin500mg IV 500 MG/100 ML BAG IV ONE (22:16)
[2023-08-19] MEDS ORDERED: NA CHLORIDE 0.9% 1,000 ML ONE (22:16)
--- NOTE | 2023-08-19 22:16 | EDPHYS ---
Physician Documentation [facility] Name: Kinza John Age: 78 yrs Sex: Female : 1945 Arrival Date: 08/19/2023 Time: 20:55 Bed 5 Private MD: ED Physician Robbie Ward HPI: 08/19 21:41 This 78 yrs old Female presents to ER via EMS with complaints of SOB, PAST maxine SMOKER , HX OF LUNG CANCER. 21:41 The patient has shortness of breath with light activity. Onset: The symptoms/episode maxine began/occurred today. Duration: The symptoms are continuous, and are steadily getting worse. The patient's shortness of breath is aggravated by coughing, is alleviated by application of supplemental oxygen. Associated signs and symptoms: Pertinent positives: non-productive cough. Severity of symptoms: At their worst the symptoms were mild moderate in the emergency department the symptoms are unchanged. The patient has experienced similar episodes in the past, multiple times. Historical: - Allergies: 21:00 PENICILLINS; as6 - Home Meds: 21:00 atorvastatin 20 mg oral tablet 1 tab daily [Active]; hydralazine 25 mg Oral tablet 1 as6 tab 3 times per day [Active]; carvedilol 12.5 mg oral tablet 1 tab 2 times per day [Active]; aspirin 81 mg Oral capsule 1 cap daily [Active]; Nifedipine ER Oral 60 mg daily [Active]; Caltrate 600 plus D 600 mg-20 mcg (800 unit) oral tablet,chewable 1 tab daily [Active]; PreserVision AREDS-2 250-90-40-1 mg oral capsule 1 tab 2 times per day [Active]; - PMHx: 21:04 Cerebrovascular accident; throat ca; lung ca; as6 - PSHx: 21:04 Total abdominal hysterectomy; Lobectomy of lung; as6 - Immunization history:: Adult Immunizations up to date. - Social history:: Smoking status: Patient/guardian denies using tobacco. ROS: 21:45 Constitutional: Negative for fever, chills, and weight loss, Eyes: Negative for injury, maxine pain, redness, and discharge, ENT: Negative for injury, pain, and discharge, Neck: Negative for injury, pain, and swelling, Cardiovascular: Negative for chest pain, palpitations, and edema, Abdomen/GI: Negative for abdominal pain, nausea, vomiting, diarrhea, and constipation, Back: Negative for injury and pain, : Negative for injury, bleeding, discharge, and swelling, MS/Extremity: Negative for injury and deformity, Skin: Negative for injury, rash, and discoloration, Neuro: Negative for headache, weakness, numbness, tingling, and seizure, Psych: Negative for depression, anxiety, suicide ideation, homicidal ideation, and hallucinations, Allergy/Immunology: Negative for hives, rash, and allergies, Endocrine: Negative for neck swelling, polydipsia, polyuria, polyphagia, and marked weight changes, Hematologic/Lymphatic: Negative for swollen nodes, abnormal bleeding, and unusual bruising, 21:45 Respiratory: Positive for cough, shortness of breath, wheezing, expiratory, Exam: 21:45 Constitutional: This is a well developed, well nourished patient who is awake, alert, maxine and in no acute distress. Head/Face: Normocephalic, atraumatic. Eyes: Pupils equal round and reactive to light, extra-ocular motions intact. Lids and lashes normal. Conjunctiva and sclera are non-icteric and not injected. Cornea within normal limits. Periorbital areas with no swelling, redness, or edema. ENT: Nares patent. No nasal discharge, no septal abnormalities noted. Tympanic membranes are normal and external auditory canals are clear. Oropharynx with no redness, swelling, or masses, exudates, or evidence of obstruction, uvula midline. Mucous membranes moist. Neck: Trachea midline, no thyromegaly or masses palpated, and no cervical lymphadenopathy. Supple, full range of motion without nuchal rigidity, or vertebral point tenderness. No Meningismus. Chest/axilla: Normal chest wall appearance and motion. Nontender with no deformity. No lesions are appreciated. Cardiovascular: Regular rate and rhythm with a normal S1 and S2. No gallops, murmurs, or rubs. Normal PMI, no JVD. No pulse deficits. Abdomen/GI: Soft, non-tender, with normal bowel sounds. No distension or tympany. No guarding or rebound. No evidence of tenderness throughout. Back: No spinal tenderness. No costovertebral tenderness. Full range of motion. Female : Normal external genitalia. Skin: Warm, dry with normal turgor. Normal color with no rashes, no lesions, and no evidence of cellulitis. MS/ Extremity: Pulses equal, no cyanosis. Neurovascular intact. Full, normal range of motion. Neuro: Awake and alert, GCS 15, oriented to person, place, time, and situation. Cranial nerves II-XII grossly intact. Motor strength 5/5 in all extremities. Sensory grossly intact. Cerebellar exam normal. Normal gait. Psych: Awake, alert, with orientation to person, place and time. Behavior, mood, and affect are within normal limits. 21:45 ECG was reviewed by the Attending Physician. 21:45 Respiratory: mild respiratory distress is noted, Respirations: labored breathing, that is mild, Breath sounds: decreased breath sounds, that are mild, are located in both bases, rhonchi, that are mild, are scattered, Respiratory rate: 22 Vital Signs: 20:59 BP 166 / 111; Pulse 94; Resp 20 S; Temp 97.6(O); Pulse Ox 97% on 3 lpm NC; Weight 44 kg as6 (R); Height 5 ft. 0 in. (R); Pain 0/10; 21:58 BP 168 / 77; Pulse 96; Resp 24 S; Pulse Ox 94% on 3 lpm NC; as6 23:13 BP 157 / 92; Pulse 92; Resp 19 S; Pulse Ox 98% on R/A; as6 08/20 00:02 BP 170 / 88; Pulse 90; Resp 19 S; Pulse Ox 94% on 3 lpm NC; as6 08/19 20:59 Body Mass Index 18.94 (44.00 kg, 152.4 cm) as6 08/19 20:59 Pain Scale: Adult as6 MDM: 08/19 20:59 Patient medically screened. maxine 21:46 Differential diagnosis: Anemia asthma, Bronchitis CHF exacerbation, Chronic Obstructive maxine Pulmonary Disease exercise-induced asthma, reactive airway, CHF, anaphylaxis, URI, foreign body, Myocardial Infarction Pneumothorax Psychogenic pulmonary edema, Pulmonary Embolism reactive airway disease, Sepsis Unstable Angina. Antibiotic administration: Levaquin given. Differential Diagnosis: Obstructed Airway Bronchitis Influenza Upper Respiratory Infection Sinusitis Pharyngitis Asthma Exacerbation. Immunization status: Pneumococcal vaccine: Influenza vaccine: Data reviewed: vital signs, nurses notes, EMS record, lab test result(s), EKG, radiologic studies, CT scan, plain films. Consideration of Admission/Observation Escalation of care including admission/observation considered. I considered the following discharge prescriptions or medication management in the emergency department Medications were administered in the Emergency Department. See MAR. Independent interpretation of the following test(s) in the Emergency Department EKG: See my EKG interpretation above. Test considered but Not performed: MRI: NO MRI CHEST. Care significantly affected by the following chronic conditions: Chronic Obstructive Pulmonary Disease, Cancer. 08/19 21:18 Order name: Basic Metabolic Panel [facility] 08/19 21:18 Order name: CBC with Diff; Complete Time: 22:37 [facility] 08/19 21:18 Order name: LFT's [facility] 08/19 21:18 Order name: Magnesium [facility] 08/19 21:18 Order name: NT PRO-BNP [facility] 08/19 21:18 Order name: PT-INR; Complete Time: 22:37 [facility] 08/19 21:18 Order name: Troponin HS [facility] 08/19 21:40 Order name: Blood Culture Adult (2) [facility] 08/19 21:40 Order name: Lactate w/ 2H reflex if indic. [facility] 08/19 23:03 Order name: CBC with Automated Diff [facility] 08/19 23:03 Order name: CBC with Automated Diff [facility] 08/19 23:03 Order name: Comprehensive Metabolic Panel [facility] 08/19 23:03 Order name: Comprehensive Metabolic Panel [facility] 08/20 06:17 Order name: Manual Differential [facility] 08/19 21:18 Order name: XRAY Chest (1 view); Complete Time: 22:37 [facility] 08/19 21:40 Order name: CT Chest For PE Angio [facility] 08/19 21:18 Order name: EKG; Complete Time: 21:19 [facility] 08/19 21:18 Order name: Cardiac monitoring; Complete Time: 21:19 [facility] 08/19 21:18 Order name: EKG - Nurse/Tech; Complete Time: 21:19 [facility] 08/19 21:18 Order name: IV Saline Lock; Complete Time: 21:19 [facility] 08/19 21:18 Order name: Labs collected and sent; Complete Time: 21:27 [facility] 08/19 21:18 Order name: O2 Per Protocol; Complete Time: 21:19 [facility] 08/19 21:18 Order name: O2 Sat Monitoring; Complete Time: 21:19 EC:45 Rate is 92 beats/min. Rhythm is regular. QRS [place] is Normal. FL interval is normal. QRS maxine interval is normal. QT interval is normal. No Q waves. T waves are Normal. No ST changes noted. Clinical impression: NSR w/ Non-specific ST/T Changes and No evidence of ischemia. Interpreted by me. Reviewed by me. Administered Medications: 22:18 Drug: NS 0.9% IV 500 ml IV at bolus once Route: IV; Rate: bolus; Site: right as6 antecubital; 08/20 00:14 Follow up: Response: No adverse reaction; IV Status: Completed infusion; IV Intake: as6 500ml 08/19 22:18 Drug: NS 0.9% IV 1000 ml IV at 125 ml/hr continuous Route: IV; Rate: 125 ml/hr; Site: as6 right antecubital; 08/20 00:16 Follow up: Response: No adverse reaction; IV Status: Infusion continued upon admission; as6 IV Intake: 500ml 08/19 22:18 Drug: MethylPrednisoLONE IVP 2 mg/kg IVP once Route: IVP; Site: right antecubital; as08/20 00:14 Follow up: Response: No adverse reaction 08/19 22:18 Drug: Levalbuterol Inhalation 3.75 mg Inhalation once Route: Inhalation; 08/20 00:14 Follow up: Response: No adverse reaction 08/19 22:18 Drug: Ipratropium Inhalation Aerosol 0.5 mg Inhalation once Route: Inhalation; 08/20 00:14 Follow up: Response: No adverse reaction 08/19 22:18 Drug: levofloxacin IVPB 500 mg 100 ml IVPB once over 60 mins Volume: 100 ml; Route: as6 IVPB; Infused Over: 60 mins; Site: right antecubital; 08/20 00:16 Follow up: Response: No adverse reaction; IV Status: Completed infusion; IV Intake: as6 100ml 08/19 22:18 Drug: Famotidine IVP 20 mg IVP once; dilute with 10 mL 0.9% NaCl; give over 2 minutes as6 Route: IVP; Site: right antecubital; 08/20 00:16 Follow up: Response: No adverse reaction as6 Disposition Summary: 08/19/23 22:15 Hospitalization Ordered Notes: Hospitalization Status: Inpatient Admission maxine Provider: Acosta, Mohammad maxine Condition: Fair maxine Problem: new maxine Symptoms: have improved maxine Bed/Room Type: Standard maxine Location: Telemetry/MedSurg (Inpatient)(08/20/23 13:23) ll1 Room Assignment: 212(08/20/23 13:23) ll1 Diagnosis - COPD/ Chronic obstructive pulmonary disease with (acute) exacerbation maxine - Hypoxemia maxine - Dyspnea maxine - Elevated white blood cell count maxine - Pneumonia due to other specified bacteria maxine - Pleural effusion, not elsewhere classified maxine Forms: - Medication Reconciliation Form maxine - SBAR form maxine - Leadership Thank You Letter maxine Signatures: Dispatcher [employer] EDRobbie Hughes MD MD cha Basinger, Emily, RN RN eb1 Mi Lam RN RN ll1 Krishan Wynne RN RN as6 Corrections: (The following items were deleted from the chart) 08/19 21:05 21:00 Home Meds: raloxifene 60 mg oral tablet 1 tab daily; as6 as6 08/20 00:40 08/19 22:15 Telemetry/MedSurg (Inpatient) maxine eb1 08/20 00:40 08/19 22:15 maxine eb1 08/20 13:23 00:40 [facility] ER HOLD eb1 ll1 13:23 00:40 ERHOLD- eb1 ll1
--- NOTE | 2023-08-19 22:16 | ER ---
Nurse's Notes [facility] Name: Kinza John Age: 78 yrs Sex: Female : 1945 Arrival Date: 08/19/2023 Time: 20:55 Bed 5 Private MD: Diagnosis: COPD/ Chronic obstructive pulmonary disease with (acute) exacerbation;Hypoxemia;Dyspnea;Elevated white blood cell count;Pneumonia due to other specified bacteria;Pleural effusion, not elsewhere classified Presentation: 08/19 21:05 Chief complaint: EMS states: called out for shortness of breath that started this as6 evening. pt reports that she has had a panic attack in the past and this feels similar. Coronavirus screen: At this time, the client does not indicate any symptoms associated with coronavirus-19. Ebola Screen: No symptoms or risks identified at this time. Initial Sepsis Screen: Does the patient meet any 2 criteria? No. Patient's initial sepsis screen is negative. Does the patient have a suspected source of infection? No. Patient's initial sepsis screen is negative. Risk Assessment: Do you want to hurt yourself or someone else? Patient reports no desire to harm self or others. Onset of symptoms was August 19, 2023 at 18:00. 21:05 Acuity: MISHA 3 as6 21:05 Method Of Arrival: EMS: [facility] as6 Historical: - Allergies: 21:00 PENICILLINS; as6 - Home Meds: 21:00 atorvastatin 20 mg oral tablet 1 tab daily [Active]; hydralazine 25 mg Oral tablet 1 as6 tab 3 times per day [Active]; carvedilol 12.5 mg oral tablet 1 tab 2 times per day [Active]; aspirin 81 mg Oral capsule 1 cap daily [Active]; Nifedipine ER Oral 60 mg daily [Active]; Caltrate 600 plus D 600 mg-20 mcg (800 unit) oral tablet,chewable 1 tab daily [Active]; PreserVision AREDS-2 250-90-40-1 mg oral capsule 1 tab 2 times per day [Active]; - PMHx: 21:04 Cerebrovascular accident; throat ca; lung ca; as6 - PSHx: 21:04 Total abdominal hysterectomy; Lobectomy of lung; as6 - Immunization history:: Adult Immunizations up to date. - Social history:: Smoking status: Patient/guardian denies using tobacco. Screenin:19 [facility] ED Fall Risk Assessment (Adult) Score/Fall Risk Level 0 - 2 = Low Risk. Abuse as6 screen: Denies threats or abuse. Denies injuries from another. Nutritional screening: No deficits noted. Tuberculosis screening: No symptoms or risk factors identified. Assessment: 21:20 General: Appears in no apparent distress. comfortable, slender, Behavior is calm, as6 cooperative. General: Reports anxious. Pain: Denies pain. Neuro: Level of Consciousness is awake, alert, obeys commands, Oriented to person, place, time, situation. Cardiovascular: Capillary refill < 3 seconds Patient's skin is warm and dry. Cardiovascular: Denies chest pain. Respiratory: Reports shortness of breath Respiratory effort is even, labored, Respiratory pattern is regular, symmetrical. GI: No deficits noted. No signs and/or symptoms were reported involving the gastrointestinal system. : No deficits noted. No signs and/or symptoms were reported regarding the genitourinary system. EENT: No deficits noted. No signs and/or symptoms were reported regarding the EENT system. 21:58 Reassessment: Patient appears in no apparent distress at this time. family now at as6 bedside. 23:13 Reassessment: pt states symptoms have improved with breathing tx. pt now on RA. as6 Vital Signs: 20:59 BP 166 / 111; Pulse 94; Resp 20 S; Temp 97.6(O); Pulse Ox 97% on 3 lpm NC; Weight 44 kg as6 (R); Height 5 ft. 0 in. (R); Pain 0/10; 21:58 BP 168 / 77; Pulse 96; Resp 24 S; Pulse Ox 94% on 3 lpm NC; as6 23:13 BP 157 / 92; Pulse 92; Resp 19 S; Pulse Ox 98% on R/A; as6 08/20 00:02 BP 170 / 88; Pulse 90; Resp 19 S; Pulse Ox 94% on 3 lpm NC; as6 08/19 20:59 Body Mass Index 18.94 (44.00 kg, 152.4 cm) as6 08/19 20:59 Pain Scale: Adult as6 ED Course: 08/19 20:59 Patient arrived in ED. as6 20:59 Robbie Ward MD is Attending Physician. [facility] 20:59 Arm band placed on. as6 21:06 Triage completed. as6 21:19 Placed in gown. Bed in low position. Call light in reach. Side rails up X2. Client as6 placed on continuous cardiac and pulse oximetry monitoring. NIBP monitoring applied. Warm blanket given. 21:19 Maintain EMS IV. Dressing intact. Good blood return noted. Site clean \T\ dry. Gauge \T\ as 6 site: 20G L FA. 21:27 Basic Metabolic Panel Sent. as6 21:27 CBC with Diff Sent. as6 21:27 LFT's Sent. as6 21:27 Magnesium Sent. as6 21:27 NT PRO-BNP Sent. as6 21:27 PT-INR Sent. as6 21:27 Troponin HS Sent. as6 21:39 Krishan Wynne, FERNANDA is Primary Nurse. as6 21:57 Blood Culture Adult (2) Sent. as6 21:57 Lactate w/ 2H reflex if indic. Sent. as6 21:57 Inserted saline lock: 20 gauge in right antecubital area, using aseptic technique. as6 Blood collected. 22:01 XRAY Chest (1 view) In Process Unspecified. EDMS 22:14 Ozzie Acosta MD is Hospitalizing Provider. [facility] 22:36 Provided Education on: need for admit . as6 22:36 No provider procedures requiring assistance completed. Patient admitted, IV remains in as6 place. 23:27 CT Chest For PE Angio In Process Unspecified. EDMS Administered Medications: 22:18 Drug: NS 0.9% IV 500 ml IV at bolus once Route: IV; Rate: bolus; Site: right as6 antecubital; 08/20 00:14 Follow up: Response: No adverse reaction; IV Status: Completed infusion; IV Intake: as6 500ml 08/19 22:18 Drug: NS 0.9% IV 1000 ml IV at 125 ml/hr continuous Route: IV; Rate: 125 ml/hr; Site: as6 right antecubital; 08/20 00:16 Follow up: Response: No adverse reaction; IV Status: Infusion continued upon admission; as6 IV Intake: 500ml 08/19 22:18 Drug: MethylPrednisoLONE IVP 2 mg/kg IVP once Route: IVP; Site: right antecubital; as6 08/20 00:14 Follow up: Response: No adverse reaction as6 08/19 22:18 Drug: Levalbuterol Inhalation 3.75 mg Inhalation once Route: Inhalation; as6 08/20 00:14 Follow up: Response: No adverse reaction as6 08/19 22:18 Drug: Ipratropium Inhalation Aerosol 0.5 mg Inhalation once Route: Inhalation; as6 08/20 00:14 Follow up: Response: No adverse reaction as6 08/19 22:18 Drug: levofloxacin IVPB 500 mg 100 ml IVPB once over 60 mins Volume: 100 ml; Route: as6 IVPB; Infused Over: 60 mins; Site: right antecubital; 08/20 00:16 Follow up: Response: No adverse reaction; IV Status: Completed infusion; IV Intake: as6 100ml 08/19 22:18 Drug: Famotidine IVP 20 mg IVP once; dilute with 10 mL 0.9% NaCl; give over 2 minutes as6 Route: IVP; Site: right antecubital; 08/20 00:16 Follow up: Response: No adverse reaction as6 Medication: 08/19 21:20 VIS not applicable for this client. as6 Intake: 08/20 00:14 IV: 500ml; Total: 500ml. as6 00:16 IV: 100ml; Total: 600ml. as6 00:16 IV: 500ml; Total: 1100ml. as6 Outcome: 08/19 22:15 Decision to Hospitalize by Provider. [facility] 22:36 Condition: stable as6 22:36 Instructed on the need for admit, 08/20 00:13 Admitted to ER Hold. Please see [facility] for further documentation. as6 14:04 Patient left the ED. aa5 Signatures: Dispatcher [employer] Robbie Prado MD MD cha Calderon, Audri, RN RN aa5 Krishan Wynne, FERNANDA RN as6 Corrections: (The following items were deleted from the chart) 08/19 21:05 21:00 Home Meds: raloxifene 60 mg oral tablet 1 tab daily; as6 as6
--- NOTE | 2023-08-19 22:25 | RAD REPORT ---
EXAM DESCRIPTION: Saida Single View08/19/2023 9:58 pm CLINICAL HISTORY: SOB COMPARISON: No comparisons TECHNIQUE: Portable AP view of the chest. FINDINGS: Bibasilar airspace opacities with suggestion of small effusions. Sequelae of right lung pa rtial resection. No pneumothorax. The cardiomediastinal contours are unremarkable. IMPRESSION: Bibasilar patchy airspace opacities and suggestion of small effusions. Pneumonia should be considered. .
[2023-08-19 22:40] LABS: Albumin 3.3 g/dL (3.4-5.0); Bilirubin Direct 0.1 mg/dL (0-0.2); Bilirubin Indirect, Calculated 0.5 mg/dL (0.2-0.8); Bilirubin Total 0.6 mg/dL (0.2-1.0); Magnesium 1.8 mg/dL (1.6-2.4); Potassium 3.3 mEq/L (3.5-5.1); Protein, Total 6.6 g/dL (6.4-8.2); Troponin High Sensitivity 27.9 pg/mL (<58.9)
--- NOTE | 2023-08-19 22:47 | P.HP ---
Certification for Inpatient Patient admitted to: Inpatient With expected LOS: >2 Midnights Patient will require the following post-hospital care: None Practitioner: I am a practitioner with admitting privileges, knowledge of patient current condition, hospital course, and medical plan of care. Services: Services provided to patient in accordance with Admission requirements found in Title 42 Section 412.3 of the Code of Federal Regulations Patient History Date of Service: 08/19/23 Reason for admission: SOB History of Present Illness: 78 yrs old Female with past medical history of lung cancer and COPD history of smoking, hypertension who was brought to ER with worsening of shortness of breath even with minimal exertions. Started a week ago and has been progressively worsening. Associated with cough with mucoid expectoration. Denies any fever or chills. No nausea vomiting or diarrhea. Complains of pain when taking a deep breath. Patient was assessed in the ER and was admitted for further management as she was found to have accelerated hypertension and possible pneumonia and COPD exacerbation Review of Systems 10-point ROS is otherwise unremarkable General: Weakness Eyes: Unremarkable ENT: Unremarkable Respiratory: Cough, Shortness of Breath, SOB with Excertion Cardiovascular: Chest Pain Gastrointestinal: Nausea, Vomiting Genitourinary: Unremarkable Musculoskeletal: Back Pain Integumentary: Unremarkable Neurological: Unremarkable Physical Examination - Vital Signs Temperature: 98.8 F Blood Pressure: 192/110 Pulse: 79 Respirations: 18 Pulse Ox (%): 98 - Physical Exam General: Alert, Moderate distress HEENT: Atraumatic, Normocephalic, PERRLA Neck: Supple, No Thyromegaly, No LAD Respiratory: Diminished, Crackles/rales, Rhonchi/gurgles Cardiovascular: No edema, Regular rate/rhythm, Normal S1 S2 Capillary refill: <2 Seconds Gastrointestinal: Soft and benign, W/out hepatosplenomegaly, No masses, No rebound Musculoskeletal: No clubbing, No swelling Integumentary: No rashes Neurological: Normal speech, Normal strength at 5/5 x4 extr, Sensation intact, Cranial nerves 3-12 intact Lymphatics: No axilla or inguinal lymphadenopathy - Studies Laboratory Data (last 24 hrs) 08/19/23 08/19/23 08/19/23 21:53 21:53 21:53 WBC 13.90 H Hgb 14.1 Hct 41.3 Plt Count 237 PT 13.0 H INR 1.18 Sodium 138 Potassium 3.3 L BUN 29 H Creatinine 0.73 Glucose 136 H Magnesium 1.8 Total Bilirubin 0.6 AST 14 L ALT 17 Alkaline Phosphatase 73 Assessment and Plan - Problems (Diagnosis) (1) Pneumonia Current Visit: Yes Status: Acute Plan: Start on IV antibiotics Monitor closely on medical insurance biller CBC in a.m. We will obtain cultures Change antibiotic as per sensitivity Qualifiers: Laterality: bilateral Lung location: lower lobe of lung (2) COPD exacerbation Current Visit: Yes Status: Acute Plan: Start on bronchodilators We will also add on antitussives Steroids Monitor closely (3) Acute hypoxic respiratory failure Current Visit: Yes Status: Acute Plan: Oxygen supplementation We will try to wean down oxygen requirement Continue bronchodilators and steroids (4) Lung cancer Current Visit: Yes Status: Acute Plan: Monitor closely Follow-up as outpatient (5) Accelerated hypertension Current Visit: Yes Status: Acute Plan: Antihypertensives titrated Hydralazine as needed (6) Hypokalemia Current Visit: Yes Status: Acute Plan: Electrolytes monitor and replace accordingly Discharge Plan: Home Plan to discharge in: 48 Hours - Advance Directives Does patient have a Living Will: No Does patient have a Durable POA for Healthcare: No - Code Status/Comfort Care Code Status: Full Code Time Spent Managing Pts Care (In Minutes): 45
[2023-08-19] MEDS ORDERED: ONDANSETRON 4 MG/2 ML VIAL IV PRN (22:55)
[2023-08-19] MEDS ORDERED: ACETAMINOPHEN 500 MG TAB PO PRN (22:55)
[2023-08-19] MEDS ORDERED: ALBUTEROL 2.5 MG/3 ML NEB SOL NEB PRN (22:55)
[2023-08-19] MEDS ORDERED: MORPHINE 2 MG/ML SYR IV PRN (22:55)
[2023-08-20 00:13] VITALS: BMI 18.9
[2023-08-20] MEDS: METHYLPREDNISOLONE 40 MG INJ IV SCH ×2 (00:54→09:00)
[2023-08-20] MEDS ORDERED: METHYLPREDNISOLONE 40 MG INJ ONE ×2 (01:02→08:28)
[2023-08-20] MEDS: IPRATROPIUM BROM 0.5MG/2.5ML NEB SCH ×4 (02:10→19:35)
[2023-08-20] MEDS ORDERED: IPRATROPIUM BROM 0.5MG/2.5ML ONE ×2 (02:12→08:08)
[2023-08-20 04:42] LABS: Absolute Lymphocytes (CBC) 0.4 K/uL (0.7-4.9); Hematocrit 41.4 % (36.0-45.0); Lymphocytes % 1.8 % (15.3-44.8); MCV 93.1 fL (80-100); MPV 9.7 fL (7.6-11.3); Platelets 231 thou/uL (152-406); RBC Red Blood Cell Count 4.44 M/uL (3.86-4.86)
[2023-08-20 04:51] LABS: Albumin 3.2 g/dL (3.4-5.0); Bilirubin Total 0.5 mg/dL (0.2-1.0); Potassium 3.3 mEq/L (3.5-5.1); Protein, Total 6.4 g/dL (6.4-8.2)
[2023-08-20 06:16] LABS: Blood Morphology Comment NOT SEEN (NOT SEEN); Platelet Estimate ADEQ
[2023-08-20] MEDS ORDERED: INFLUENZA VACCINE (for 6+ mo) 0.5 ML DOSE IMVAC ONE (08:00)
[2023-08-20] MEDS ORDERED: AZITHROMYCIN 500 MG INJ IVPB ONE (08:28)
[2023-08-20] MEDS ORDERED: CEFTRIAXONE 1000 MG/VIAL ONE (08:28)
[2023-08-20] MEDS ORDERED: ENOXAPARIN 40 MG/0.4 ML SQ ONE (08:29)
[2023-08-20] MEDS ORDERED: NA CHLORIDE 0.9% 250 ML ONE (08:43)
[2023-08-20] MEDS ORDERED: CEFTRIAXONE 1,000 MG in NA CHLORIDE 0.9% 50 ML IVPB SCH (09:00)
[2023-08-20] MEDS: ENOXAPARIN 40 MG/0.4 ML SQ SCH (09:00)
[2023-08-20] MEDS ORDERED: AZITHROMYCIN IV 500 MG in NA CHLORIDE 0.9% 250 ML IVPB SCH (09:00)
--- NOTE | 2023-08-20 09:46 | EKG ---
Test Date: 2023-08-19 Test Time: 21:13:57 Rough And Truing Machine Operator: CÉSAR MEASUREMENT RESULTS: Intervals: Rate: 92 FL: 200 QRSD: 82 QT: 368 QTc: 455 [place]: P: 87 FL: 200 QRS: 20 T: 3 INTERPRETIVE STATEMENTS: Sinus rhythm with premature supraventricular complexes with occasional premature ventricular complexes Septal infarct, age undetermined Abnormal ECG No previous ECG available for comparison Electronically Signed On 08-20-23 09:45:12 CDT by Star Zhu
--- NOTE | 2023-08-20 10:30 | P.PN ---
Subjective Date of Service: 08/20/23 Chief Complaint: SOB Subjective: Doing well HPI 08/19: Kinza John is a 78 yrs old Female with past medical history of lung cancer and COPD history of smoking, hypertension who was brought to ER with worsening of shortness of breath even with minimal exertions. Started a week ago and has been progressively worsening. Associated with cough with mucoid expectoration. Denies any fever or chills. No nausea vomiting or diarrhea. Complains of pain when taking a deep breath. Patient was assessed in the ER and was admitted for further management as she was found to have accelerated hypertension and possible pneumonia and COPD exac erbation 08/20: Kinza is sitting in bed awake with HOB at 45 degrees and on 3 LNC. She has been given breathing treatments throughout the night with steroid administration. Kinza reports having lung cancer in the past and undergoing two surgical procedures to remove portions of both the right and left lung. She is unaware of the COPD diagnosis. <Bridget Graves - Last Filed: 08/20/23 10:45> Date of Service: 08/20/23 <bong lee - Last Filed: 08/22/23 15:16> Review of Systems Respiratory: Shortness of Breath <Bridget Graves - Last Filed: 08/20/23 10:45> Physical Examination - Vital Signs Temperature: 97.8 F Blood Pressure: 154/93 Pulse: 102 Respirations: 17 Pulse Ox (%): 98 - Studies Laboratory Data (last 24 hrs) 08/19/23 08/19/23 08/19/23 21:53 21:53 21:53 WBC 13.90 H Hgb 14.1 Hct 41.3 Plt Count 237 PT 13.0 H INR 1.18 Sodium 138 Potassium 3.3 L BUN 29 H Creatinine 0.73 Glucose 136 H Magnesium 1.8 Total Bilirubin 0.6 AST 14 L ALT 17 Alkaline Phosphatase 73 <Bridget Graves - Last Filed: 08/20/23 10:45> Assessment And Plan - Plan Physical Exam General: Alert, Moderate distress HEENT: Atraumatic, Normocephalic, PERRLA Neck: Supple, No Thyromegaly, No LAD Respiratory: Diminished, Crackles/rales, Rhonchi/gurgles Cardiovascular: No edema, Regular rate/rhythm, Normal S1 S2 Capillary refill: <2 Seconds Gastrointestinal: Soft and benign, W/out hepatosplenomegaly, No masses, No rebound Musculoskeletal: No clubbing, No swelling Integumentary: No rashes Neurological: Normal speech, Normal strength at 5/5 x4 extr, Sensation intact, Cranial nerves 3-12 intact Lymphatics: No axilla or inguinal lymphadenopathy Assessment and Plan - Problems (Diagnosis) (1) Pneumonia Current Visit: Yes Status: Acute Plan: Start on IV antibiotics Monitor closely on chemical strength tester CBC in a.m. We will obtain cultures Change antibiotic as per sensitivity Qualifiers: Laterality: bilateral Lung location: lower lobe of lung (2) COPD exacerbation Current Visit: Yes Status: Acute Plan: Start on bronchodilators We will also add on antitussives Steroids Monitor closely (3) Acute hypoxic respiratory failure in a patient with history of lung cancer s/p lung surgical procedure Current Visit: Yes Status: Acute Plan: Oxygen supplementation We will try to wean down oxygen requirement Continue bronchodilators and steroids Consult Dr Ren for recommendations (4) Lung cancer Current Visit: Yes Status: Acute Plan: Monitor closely Follow-up as outpatient (5) Accelerated hypertension Current Visit: Yes Status: Acute Plan: Antihypertensives titrated Hydralazine as needed (6) Hypokalemia Current Visit: Yes Status: Acute Plan: Electrolytes monitor and replace accordingly Discharge Plan: Home Plan to discharge in: 48 Hours Full code Discharge Plan: Home Plan to discharge in: 48 Hours Time Spent Managing PTS Care (In Minutes): 35 <Bridget Graves - Last Filed: 08/20/23 10:45> - Plan Patient seen and examined. Imaging demonstrating metastatic disease Possible pneumonia. Pulmonary input appreciated Continue antibiotics Continue bronchodilators and steroid Wean oxygen as tolerated. Patient declined liver biopsy. Follow-up for further cancer evaluation as outpatient. <bong lee - Last Filed: 08/22/23 15:16>
--- NOTE | 2023-08-20 12:44 | RAD REPORT ---
EXAM DESCRIPTION: CT Angiography Chest With Intravenous Contrast CLINICAL HISTORY: The patient is 78 years old and is Female; COPD TECHNIQUE: Axial computed tomographic angiography images of the chest with intravenous contrast. S agittal and coronal reformatted images were created and reviewed. This CT exam was performed using one or more of the following dose reduction techniques: automated exposure control, adjustment of t he mA and/or kV according to patient size, and/or use of iterative reconstruction technique. MIP re constructed images were created and reviewed. COMPARISON: No relevant prior studies available. FINDINGS: Pulmonary arteries: Unremarkable. No pulmonary embolism. Aorta: Scattered atherosclerotic vascular calcifications. No thoracic aortic aneurysm. Inferior vena cava: There is some reflux of contrast into the IVC. Lungs: Numerous pulmonary nodules throughout the left lung measuring up to 9 mm in the left upper lobe. Numerous pulmonary nodules in the right lung measuring up to 1.1 cm in the right lower lobe. Focal area of consolidation in the left lower lobe. Right perihilar consolidation. Scattered groundglass changes throughout the lungs bilaterally. Pleural space: Moderate right pleural effusion. No pneumothorax. Heart: Small pericardial effusion. No evidence of RV dysfunction. Mediastinum: Suggestion of abnormal confluent soft tissue density in the mediastinum and right hi lar region. Thyroid: Enlarged heterogeneous right thyroid. Bones/joints: Expansile lytic lesion in the right lateral seventh rib. No acute fracture. No dislocation. Soft tissues: Metallic density in the left breast. Lymph nodes: Enlarged 1 cm left perihilar lymph node. Liver: 3.2 cm hypoattenuating lesion in the right posterior liver. 2.4 cm hypoattenuating lesion in the left liver. IMPRESSION: 1. No evidence of pulmonary embolism. 2. Numerous pulmonary nodules throughout the left lung measuring up to 9 mm in the left upper lobe. Numerous pulmonary nodules in the right lung measuring up to 1.1 cm in the right lower lobe. Findi ngs are concerning for malignancy/metastatic disease. 3. Focal area of consolidation in the left lower lobe. Right perihilar consolidation. Scattered robel undglass changes throughout the lungs bilaterally. 4. Suggestion of abnormal confluent soft tissue density in the mediastinum and right hilar region. 5. Moderate right pleural effusion. 6. Small pericardial effusion. 7. Enlarged 1 cm left perihilar lymph node. 8. Enlarged heterogeneous right thyroid. 9. 3.2 cm hypoattenuating lesion in the right posterior liver. 2.4 cm hypoattenuating lesion in the left liver. Findings are suggestive of metastatic disease. 10. Expansile lytic lesion in the right lateral seventh rib. Finding is suggestive of metastatic disease. Electronically signed by: Howard Lincoln MD 08/20/2023 12:07 AM CDT Due to temporary technical issues with the PACS/Fluency reporting system, reports are being signed by the in house radiologist without review as a courtesy to ensure prompt reporting. The interpreting r adiologist is fully responsible for the content of the report.
[2023-08-20] MEDS ORDERED: ALBUTEROL 2.5 MG/3 ML NEB SOL NEB PRN (15:00)
--- NOTE | 2023-08-20 15:57 | P.CNS ---
Date of Consult: 08/20/23 Reason for Consult: Respiratory distress abnormal chest x-ray Chief Complaint: SOB History of Present Illness: Patient is 78 years of age she has had multiple cancers has been sick for about a week and a half started complaining of worsening dyspnea became progressively worse ended up here in the emergency room and has had multiple cancers with lobectomies of both lungs also has had metastatic disease and she has been followed up by doctors in [place] denies any fever or chills patient quit smoking over 30 years ago Allergies Penicillins Allergy (Verified 08/20/23 00:06) Hives/Rash Home Medications: Aspirin [Aspirin EC] 81 mg PO DAILY 08/20/23 Atorvastatin Calcium 20 mg PO DAILY 08/20/23 Calcium Carbonate/Vitamin D3 [Caltrate 600 Plus D3 Tablet] 1 tab PO DAILY 08/20/23 Carvedilol [Coreg] 12.5 mg PO BID 08/20/23 Cyclobenzaprine [Flexeril*] 20 mg PO BEDTIME 08/20/23 Hydralazine [Apresoline] 25 mg PO TID 08/20/23 NIFEdipine [Nifedipine ER] 60 mg PO DAILY 08/20/23 Vit C/E/Zn/Coppr/Lutein/Zeaxan [Preservision Areds 2 Chew Tab] 1 tab PO DAILY 08/20/23 - Past Medical/Surgical History -: throat cancer -: lung cancer -: CVA -: osteoporosis -: kidney removal-left -: hysterectomy -: cataract-left -: lobectomy - Social History Place of Residence: Home Review of Systems 10-point ROS is otherwise unremarkable General: Weakness Respiratory: Shortness of Breath Physical Examination Temp Pulse Resp BP Pulse Ox 97.6 F 90 19 170/88 H 99 08/20/23 14:09 08/20/23 14:15 08/20/23 14:15 08/20/23 14:15 08/20/23 12:00 General: Alert, In no apparent distress, Oriented x3 Neck: Supple Respiratory: Clear to auscultation bilaterally, Diminished Cardiovascular: No edema, Regular rate/rhythm, Normal S1 S2 Gastrointestinal: Normal bowel sounds, Soft and benign Laboratory Data (last 24 hrs) 08/19/23 08/19/23 08/19/23 21:53 21:53 21:53 WBC 13.90 H Hgb 14.1 Hct 41.3 Plt Count 237 PT 13.0 H INR 1.18 Sodium 138 Potassium 3.3 L BUN 29 H Creatinine 0.73 Glucose 136 H Magnesium 1.8 Total Bilirubin 0.6 AST 14 L ALT 17 Alkaline Phosphatase 73 - Problems (1) Metastatic cancer Current Visit: Yes Status: Acute Plan: Patient is 78 years of age admitted with acute dyspnea there is no evidence of thromboembolism however patient has multiple pulmonary nodules with metastatic disease to the liver need to have a biopsy done to establish the origin and has had lobectomies for lung cancer she is also had throat cancer as cancer and also nephrectomy for renal cancer in the past he patient's white count is elevated Labs reviewed he is on diuretic blood pressure elevated otherwise vital signs oxygenation stable CT scan shows a pleural effusion on the right side bilateral volume loss DC IV antibiotics changed to p.o. levofloxacin I doubt if this is an infection Prognosis is poor she will need ultrasound-guided biopsy of her liver mass we will establish the diagnosis Qualifiers: Area of secondary neoplastic involvement: respiratory structure Respiratory structure secondary neoplasm location: metastatic to lung Laterality: bilateral Qualified Code(s): C78.01 - Secondary malignant neoplasm of right lung; C78.02 - Secondary malignant neoplasm of left lung
[2023-08-20] MEDS: HYDRALAZINE HCL 25 MG TABLET PO SCH ×2 (16:15→21:25)
[2023-08-20] MEDS: carvediloL 12.5 MG TAB PO SCH ×2 (16:15→21:25)
[2023-08-20] MEDS: levoFLOXacin 250 MG TAB PO SCH (16:45)
[2023-08-20] MEDS ORDERED: HYDRALAZINE HCL 25 MG TABLET PO SCH (21:00)
[2023-08-20] MEDS ORDERED: carvediloL 12.5 MG TAB PO SCH (21:00)
[2023-08-20] MEDS: CYCLOBENZAPRINE 10 MG TAB PO SCH (21:26)
[2023-08-20] MEDS: predniSONE 20 MG TAB PO SCH (21:26)
[2023-08-21] MEDS: IPRATROPIUM BROM 0.5MG/2.5ML NEB SCH ×4 (01:50→19:46)
[2023-08-21] MEDS ORDERED: POTASSIUM 25 MEQ EFFERV TAB PO ONE (08:45)
[2023-08-21] MEDS ORDERED: [UNRECOGNIZED DRUG - OTHER] PO SCH (09:00)
[2023-08-21] MEDS: OCUVITE (VIT A,C & E/LUTEIN/MINERAL) TABLET PO SCH (09:00)
[2023-08-21] MEDS ORDERED: HOME MED 1 EA UNK (Calcium Carbonate/Vitamin D3 [Caltrate 600 Plus D3 Tablet] Tablet) PO SCH (09:00)
[2023-08-21] MEDS ORDERED: HOME MED 1 EA UNK (Aspirin [Aspirin Ec] 81 MG Tablet.Dr) PO SCH (09:00)
[2023-08-21] MEDS: predniSONE 20 MG TAB PO SCH ×2 (09:10→21:06)
[2023-08-21] MEDS: levoFLOXacin 250 MG TAB PO SCH (09:10)
[2023-08-21] MEDS: CALCIUM CARB 500MG/VIT D 200 IU TAB PO SCH (09:10)
[2023-08-21] MEDS: carvediloL 12.5 MG TAB PO SCH ×2 (09:10→21:05)
[2023-08-21] MEDS: NIFEDIPINE XL 60 MG TABLET PO SCH (09:11)
[2023-08-21] MEDS: ASPIRIN EC 81 MG TAB PO SCH (09:11)
[2023-08-21] MEDS: ATORVASTATIN 20 MG TAB PO SCH (09:11)
[2023-08-21] MEDS: HYDRALAZINE HCL 25 MG TABLET PO SCH ×3 (09:13→21:05)
[2023-08-21] MEDS: ENOXAPARIN 40 MG/0.4 ML SQ SCH (09:14)
[2023-08-21 11:18] LABS: Absolute Lymphocytes (CBC) 0.4 K/uL (0.7-4.9); Hematocrit 40.5 % (36.0-45.0); Lymphocytes % 1.9 % (15.3-44.8); MCV 92.4 fL (80-100); MPV 9.5 fL (7.6-11.3); Platelets 256 thou/uL (152-406); RBC Red Blood Cell Count 4.38 M/uL (3.86-4.86)
[2023-08-21 11:25] LABS: Potassium 3.5 mEq/L (3.5-5.1)
[2023-08-21 11:57] LABS: Blood Morphology Comment NOT SEEN (NOT SEEN); Platelet Estimate ADEQ; White Blood Cell Scan OK (OK)
--- NOTE | 2023-08-21 13:04 | P.PN ---
Subjective Date of Service: 08/21/23 Chief Complaint: SOB Patient reports no change in her shortness of breath since yesterday. She reports intermittent cough, no wheezing. She denies abdominal pain. Family reports loss of appetite over several months, and significantly reduced oral intake in the past 1 month. Physical Examination - Vital Signs Temperature: 98.8 F Blood Pressure: 194/94 Pulse: 94 Respirations: 16 Pulse Ox (%): 96 Assessment And Plan - Plan Physical Exam General: Alert, NAD Neck: Supple, No JVD Respiratory: Diminished, Crackles/rales, no wheezes or rhonchi. Cardiovascular: No edema, Regular rate/rhythm, Normal S1 S2 Gastrointestinal: Soft and benign, W/out hepatosplenomegaly, No masses, no tenderness. Musculoskeletal: No clubbing, No swelling Integumentary: No rashes Neurological: Normal speech, Normal strength at 5/5 x4 extr, Sensation intact, Cranial nerves 3-12 intact Diagnosis Pneumonia Continue IV antibiotics Monitor CBC Blood cultures: No growth to date. Leukocytosis likely steroid-induced. Monitor. COPD exacerbation No prior COPD diagnosis Continue bronchodilators, antibiotic and steroid Supportive measures with antitussives. Acute hypoxic respiratory failure in a patient with history of lung cancer s/p lung surgical procedure Wean off oxygen as tolerated Continue bronchodilators and steroids Consult Dr Ren for recommendations Lung cancer Liver metastasis suspected. Patient declined liver biopsy and wants to follow-up with her PCP as an outpatient for further evaluation. Follow-up as outpatient Accelerated hypertension Continue home antihypertensives-hydralazine and nifedipine Hydralazine IV as needed for BP spikes. Hypokalemia Acute Corrected. Electrolytes monitor and replace accordingly. Severe protein calorie malnutrition Small frequent high-calorie diet recommended. Dietitian consult. DVT prophylaxis: Lovenox.
[2023-08-21] MEDS: CYCLOBENZAPRINE 10 MG TAB PO SCH (21:06)
[2023-08-21] MEDS: ENSURE ENLIVE 237 ML CAN PO SCH (21:06)
[2023-08-22] MEDS: IPRATROPIUM BROM 0.5MG/2.5ML NEB SCH ×4 (01:00→20:00)
[2023-08-22 02:53] LABS: Magnesium 1.6 mg/dL (1.6-2.4)
[2023-08-22 02:58] LABS: Phosphorus 1.4 mg/dL (2.5-4.9)
[2023-08-22] MEDS ORDERED: MAGNESIUM SULFATE 1 gm IVPB 1 GM/100 ML BAG IV ONE (07:15)
[2023-08-22] MEDS: ATORVASTATIN 20 MG TAB PO SCH (08:34)
[2023-08-22] MEDS: predniSONE 20 MG TAB PO SCH ×2 (08:34→20:51)
[2023-08-22] MEDS: NIFEDIPINE XL 60 MG TABLET PO SCH (08:34)
[2023-08-22] MEDS: ENOXAPARIN 40 MG/0.4 ML SQ SCH (08:35)
[2023-08-22] MEDS: CALCIUM CARB 500MG/VIT D 200 IU TAB PO SCH (08:35)
[2023-08-22] MEDS: ASPIRIN EC 81 MG TAB PO SCH (08:35)
[2023-08-22] MEDS: carvediloL 12.5 MG TAB PO SCH ×2 (08:38→20:51)
[2023-08-22] MEDS: HYDRALAZINE HCL 25 MG TABLET PO SCH ×3 (08:38→20:51)
[2023-08-22] MEDS: ENSURE ENLIVE 237 ML CAN PO SCH ×2 (08:39→20:52)
[2023-08-22] MEDS ORDERED: POTASSIUM PHOS 20 MM in NA CHLORIDE 0.9% 500 ML IV ONE (09:00)
[2023-08-22] MEDS: OCUVITE (VIT A,C & E/LUTEIN/MINERAL) TABLET PO SCH (09:00)
--- NOTE | 2023-08-22 17:24 | P.PN ---
Subjective Date of Service: 08/22/23 Chief Complaint: SOB Subjective: Doing well HPI 08/19: Kinza John is a 78 yrs old Female with past medical history of lung cancer and COPD history of smoking, hypertension who was brought to ER with worsening of shortness of breath even with minimal exertions. Started a week ago and has been progressively worsening. Associated with cough with mucoid expectoration. Denies any fever or chills. No nausea vomiting or diarrhea. Complains of pain when taking a deep breath. Patient was assessed in the ER and was admitted for further management as she was found to have accelerated hypertension and possible pneumonia and COPD exac erbation 08/20: Kinza is sitting in bed awake with HOB at 45 degrees and on 3 LNC. She has been given breathing treatments throughout the night with steroid administration. Kinza reports having lung cancer in the past and undergoing two surgical procedures to remove portions of both the right and left lung. She is unaware of the COPD diagnosis. 08/21: Patient reports no change in her shortness of breath since yesterday. She reports intermittent cough, no wheezing. She denies abdominal pain. Family reports loss of appetite over several months, and significantly reduced oral intake in the past 1 month. 08/22: Kinza is AAO x3, weaned to RA for trial but sating 86%. Will require home oxygen, order placed. She is in good spirits. Family in the room with her and she is eating. Tassel Snipper consulted for decreased PO intake. Review of Systems 10-point ROS is otherwise unremarkable Physical Examination - Vital Signs Temperature: 98.6 F Blood Pressure: 138/72 Pulse: 72 Respirations: 16 Pulse Ox (%): 92 Assessment And Plan - Plan Physical Exam General: Alert, Moderate distress HEENT: Atraumatic, Normocephalic, PERRLA Neck: Supple, No Thyromegaly, No LAD Respiratory: Diminished, Crackles/rales, Rhonchi/gurgles Cardiovascular: No edema, Regular rate/rhythm, Normal S1 S2 Capillary refill: <2 Seconds Gastrointestinal: Soft and benign, W/out hepatosplenomegaly, No masses, No rebound Musculoskeletal: No clubbing, No swelling Integumentary: No rashes Neurological: Normal speech, Normal strength at 5/5 x4 extr, Sensation intact, Cranial nerves 3-12 intact Lymphatics: No axilla or inguinal lymphadenopathy Assessment and Plan - Problems (Diagnosis) Pneumonia Start on IV antibiotics Monitor closely on orientation & mobility specialist CBC in a.m. We will obtain cultures Change antibiotic as per sensitivity COPD exacerbation Start on bronchodilators We will also add on antitussives Steroids Monitor closely Acute hypoxic respiratory failure in a patient with history of lung cancer s/p lung surgical procedure Oxygen supplementation We will try to wean down oxygen requirement Continue bronchodilators and steroids Consult Dr Ren for recommendations Lung cancer Monitor closely Follow-up as outpatient Accelerated hypertension Antihypertensives titrated Hydralazine as needed Hypokalemia Electrolytes monitor and replace accordingly Severe protein calorie malnutrition Small frequent high-calorie diet recommended. Ensure Enlive (237ml) PO BID Dietitian consult. Discharge Plan: Home Plan to discharge in: 48 Hours Full code Discharge Plan: Home Plan to discharge in: 24 Hours Time Spent Managing PTS Care (In Minutes): 35
[2023-08-22] MEDS: CYCLOBENZAPRINE 10 MG TAB PO SCH (20:51)
[2023-08-23] MEDS: IPRATROPIUM BROM 0.5MG/2.5ML NEB SCH ×4 (02:00→20:20)
[2023-08-23 08:26] LABS: Absolute Lymphocytes (CBC) 0.5 K/uL (0.7-4.9); Hematocrit 39.6 % (36.0-45.0); Lymphocytes % 2.9 % (15.3-44.8); MCV 93.2 fL (80-100); MPV 8.9 fL (7.6-11.3); Platelets 233 thou/uL (152-406); RBC Red Blood Cell Count 4.25 M/uL (3.86-4.86)
[2023-08-23] MEDS: OCUVITE (VIT A,C & E/LUTEIN/MINERAL) TABLET PO SCH (08:36)
[2023-08-23] MEDS: CALCIUM CARB 500MG/VIT D 200 IU TAB PO SCH (08:37)
[2023-08-23] MEDS: NIFEDIPINE XL 60 MG TABLET PO SCH (08:37)
[2023-08-23] MEDS: ASPIRIN EC 81 MG TAB PO SCH (08:38)
[2023-08-23] MEDS: ATORVASTATIN 20 MG TAB PO SCH (08:39)
[2023-08-23] MEDS: carvediloL 12.5 MG TAB PO SCH ×2 (08:40→20:41)
[2023-08-23] MEDS: predniSONE 20 MG TAB PO SCH ×2 (08:40→20:42)
[2023-08-23] MEDS: HYDRALAZINE HCL 25 MG TABLET PO SCH ×3 (08:40→20:41)
[2023-08-23 08:41] LABS: Magnesium 1.8 mg/dL (1.6-2.4); Phosphorus 1.8 mg/dL (2.5-4.9); Potassium 3.8 mEq/L (3.5-5.1)
[2023-08-23] MEDS: ENOXAPARIN 40 MG/0.4 ML SQ SCH (08:41)
[2023-08-23] MEDS: ENSURE ENLIVE 237 ML CAN PO SCH ×2 (08:42→20:42)
[2023-08-23] MEDS ORDERED: levoFLOXacin 500 MG TAB PO SCH (09:00)
[2023-08-23] MEDS ORDERED: POTASSIUM PHOS 20 MM in NA CHLORIDE 0.9% 500 ML IV ONE (09:51)
--- NOTE | 2023-08-23 09:53 | P.PN ---
Subjective Date of Service: 08/23/23 Chief Complaint: SOB Subjective: No new changes, Doing well HPI 08/19: Kinza John is a 78 yrs old Female with past medical history of lung cancer and COPD history of smoking, hypertension who was brought to ER with worsening of shortness of breath even with minimal exertions. Started a week ago and has been progressively worsening. Associated with cough with mucoid expectoration. Denies any fever or chills. No nausea vomiting or diarrhea. Complains of pain when taking a deep breath. Patient was assessed in the ER and was admitted for further management as she was found to have accelerated hypertension and possible pneumonia and COPD exacerbation 08/20: Kinza is sitting in bed awake with HOB at 45 degrees and on 3 LNC. She has been given breathing treatments throughout the night with steroid administra tion. Kinza reports having lung cancer in the past and undergoing two surgical procedures to remove portions of both the right and left lung. She is unaware of the COPD diagnosis. 08/21: Patient reports no change in her shortness of breath since yesterday. She reports intermittent cough, no wheezing. She denies abdominal pain. Family reports loss of appetite over several months, and significantly reduced oral intake in the past 1 month. 08/22: Kinza is AAO x3, weaned to RA for trial but sating 86%. Will require home oxygen, order placed. She is in good spirits. Family in the room with her and she is eating. Manager Paper consulted for decreased PO intake. 08/23: Kinza is sating 90% on RA while at rest but will need 2 LNC home oxygen for ambulation recovery. She is doing well, tolerating PO diet, and ambulating in her room. Will need social word to schedule home oxygen delivery. Review of Systems 10-point ROS is otherwise unremarkable Physical Examination - Vital Signs Temperature: 97.7 F Blood Pressure: 146/82 Pulse: 109 Respirations: 16 Pulse Ox (%): 90 Assessment And Plan - Plan Physical Exam General: Alert, Moderate distress HEENT: Atraumatic, Normocephalic, PERRLA Neck: Supple, No Thyromegaly, No LAD Respiratory: Diminished, Crackles/rales, Rhonchi/gurgles Cardiovascular: No edema, Regular rate/rhythm, Normal S1 S2 Capillary refill: <2 Seconds Gastrointestinal: Soft and benign, W/out hepatosplenomegaly, No masses, No rebound Musculoskeletal: No clubbing, No swelling Integumentary: No rashes Neurological: Normal speech, Normal strength at 5/5 x4 extr, Sensation intact, Cranial nerves 3-12 intact Lymphatics: No axilla or inguinal lymphadenopathy Assessment and Plan - Problems (Diagnosis) Pneumonia Start on IV antibiotics Monitor closely on language tutor CBC in a.m. We will obtain cultures Change antibiotic as per sensitivity COPD exacerbation Start on bronchodilators We will also add on antitussives Steroids Monitor closely Acute hypoxic respiratory failure in a patient with history of lung cancer s/p lung surgical procedure Oxygen supplementation We will try to wean down oxygen requirement Continue bronchodilators and steroids Consult Dr Ren for recommendations Home oxygen required at this time, 87% on RA at rest Lung cancer Monitor closely Follow-up as outpatient Accelerated hypertension Antihypertensives titrated Hydralazine as needed Hypokalemia Hypophosphatemia Hypomagnasemia Electrolytes monitor and replace accordingly Severe protein calorie malnutrition Small frequent high-calorie diet recommended. Ensure Enlive (237ml) PO BID Dietitian consult. Discharge Plan: Home Plan to discharge in: 48 Hours Full code Discharge Plan: Home Plan to discharge in: 24 Hours Time Spent Managing PTS Care (In Minutes): 35
[2023-08-23] MEDS: CYCLOBENZAPRINE 10 MG TAB PO SCH (20:41)
[2023-08-24] MEDS: IPRATROPIUM BROM 0.5MG/2.5ML NEB SCH ×2 (02:00→08:00)
[2023-08-24 03:19] LABS: Absolute Lymphocytes (CBC) 0.3 K/uL (0.7-4.9); Hematocrit 38.2 % (36.0-45.0); Lymphocytes % 2.3 % (15.3-44.8); MCV 93.5 fL (80-100); MPV 9.2 fL (7.6-11.3); Platelets 232 thou/uL (152-406); RBC Red Blood Cell Count 4.09 M/uL (3.86-4.86)
[2023-08-24 03:21] LABS: Magnesium 1.8 mg/dL (1.6-2.4); Phosphorus 2.1 mg/dL (2.5-4.9)
[2023-08-24 07:29] VITALS: BP 120/71; TEMP 98.1
[2023-08-24] MEDS ORDERED: Magnesium Sulfate 2gm IVPB 2 G/50 ML BAG IV ONE (07:30)
--- NOTE | 2023-08-24 08:31 | ECHO ---
HEIGHT: 5 ft 0 in WEIGHT: 97 lb 0 oz DATE OF STUDY: 08/21/[address]: Serjio Ren MD 2-DIMENSIONAL: YES M.MODE: YES DOPPLER: YES COLOR FLOW: YES TDS: PORTABLE: YES DEFINITY: BUBBLE STUDY: DIAGNOSIS: RESPIRATORY FAILURE, HISTORY OF METASTATIC CANCER CARDIAC HISTORY: CATHERIZATION: NO SURGERY: NO PROSTHETIC VALVE: NO PACEMAKER: NO MEASUREMENTS (cm) DIASTOLIC (NORMALS) SYSTOLIC (NORMALS) IVSd 1.0 (0.6-1.2) LA Diam 2.7 (1.9-4.0) LVEF 51% LVIDd 3.8 (3.5-5.7) LVIDs 2.9 (2.0-3.5) %FS 25% LVPWd 1.1 (0.6-1.2) Ao Diam 2.5 (2.0-3.7) 2 DIMENSIONAL ASSESSMENT: RIGHT ATRIUM: NORMAL LEFT ATRIUM: NORMAL RIGHT VENTRICLE: NORMAL LEFT VENTRICLE: NORMAL TRICUSPID VALVE: MODERATE TRICUSPID REGURGITATION MITRAL VALVE: MILD MITRAL REGURGITATION PULMONIC VALVE: NORMAL AORTIC VALVE: NORMAL PERICARDIAL EFFUSION: MODERATE AORTIC ROOT: NORMAL LEFT VENTRICULAR WALL MOTION: NORMAL DOPPLER/COLOR FLOW: SEE BELOW COMMENTS: 1. NORMAL LEFT VENTRICULAR EJECTION FRACTION 55-60% 2. MODERATE POSTERIOR PERICARDIAL EFFUSION 3. MILD TO MODERATE TRICUSPID REGURGITATION 4. MILD MITRAL REGURGITATION 5. SEVERE PULMONARY HYPERTENSION WITH RIGHT VENTRICULAR SYSTOLIC PRESSURE GREATER THAN 60 mmHg TECHNOLOGIST: NATY REINA
--- NOTE | 2023-08-24 08:34 | P.PN ---
Subjective Date of Service: 08/24/23 Chief Complaint: Metastatic cancer shortness of breath Subjective: Improving (Patient is improving doing well feeling better still little short of breath wants to go home) Review of Systems General: Weakness Respiratory: Shortness of Breath Physical Examination - Vital Signs Temperature: 98.1 F Blood Pressure: 120/71 Pulse: 72 Respirations: 16 Pulse Ox (%): 93 - Physical Exam General: Alert, In no apparent distress, Oriented x3 Respiratory: Clear to auscultation bilaterally Cardiovascular: No edema, Normal pulses Assessment And Plan - Current Problems (Diagnosis) (1) Metastatic cancer Current Visit: Yes Status: Acute Plan: Patient is 78 years of age admitted with shortness of breath has metastatic cancer also follow-up at [facility] to have a biopsy done currently doing better vital signs oxygenation satisfactory count is declined to 14,000 plan to discharge home on levofloxacin for another week continue with low-dose prednisone 10 mg twice a day for another week as well added bronchodilators recommend Advair 250 1 puff twice a day Qualifiers: Area of secondary neoplastic involvement: respiratory structure Respiratory structure secondary neoplasm location: metastatic to lung Laterality: bilateral Qualified Code(s): C78.01 - Secondary malignant neoplasm of right lung; C78.02 - Secondary malignant neoplasm of left lung
[2023-08-24] MEDS: ENSURE ENLIVE 237 ML CAN PO SCH (09:00)
[2023-08-24] MEDS ORDERED: POTASSIUM PHOS IN 0.9 % NACL 15 MMOL/250 ML BAG IV ONE (09:00)
[2023-08-24] MEDS: ATORVASTATIN 20 MG TAB PO SCH (10:20)
[2023-08-24] MEDS: ASPIRIN EC 81 MG TAB PO SCH (10:20)
[2023-08-24] MEDS: NIFEDIPINE XL 60 MG TABLET PO SCH (10:22)
[2023-08-24] MEDS: CALCIUM CARB 500MG/VIT D 200 IU TAB PO SCH (10:24)
[2023-08-24] MEDS: predniSONE 20 MG TAB PO SCH (10:24)
[2023-08-24] MEDS: OCUVITE (VIT A,C & E/LUTEIN/MINERAL) TABLET PO SCH (10:24)
[2023-08-24] MEDS: ENOXAPARIN 40 MG/0.4 ML SQ SCH (10:24)
[2023-08-24] MEDS: HYDRALAZINE HCL 25 MG TABLET PO SCH ×2 (10:36→13:34)
[2023-08-24] MEDS: carvediloL 12.5 MG TAB PO SCH (10:36)
--- NOTE | 2023-08-24 12:59 | P.DS ---
Admission Date: 08/19/23 Discharge Date: 08/24/23 Disposition: ROUTINE DISCHARGE Reason for Admission: Metastatic cancer shortness of breath Brief History of Present Illness: 78 yrs old Female with past medical history of lung cancer and COPD, history of smoking, hypertension who was brought to ER with worsening of shortness of breath even with minimal exertions. Symptoms started a week ago and became progressively worse. Associated with cough with mucoid expectoration, no hemoptysis. She complains of chest pain with deep breathing. Patient was assessed in the ER and was admitted for further management as she was found to have accelerated hypertension and possible pneumonia and COPD exacerbation Hospital Course: Patient admitted to the medical floor and the following medical problems addressed: Pneumonia Patient treated with IV Rocephin and Zithromax and transition to oral Levaquin. Blood cultures yielded no growth. COPD exacerbation Patient treated with nebs, steroids and bronchodilators Pulmonary saw and assisted with management. IV steroid transition to oral prednisone on discharge. Acute hypoxic respiratory failure in a patient with history of lung cancer s/p lung surgical procedure Patient required oxygen supplementation. Her respiratory status improved and she was still hypoxic on room air with oxygen saturation of 87% on room air at rest. Lung cancer Follow-up as outpatient Suspected liver metastasis. Patient declined liver biopsy and stated she would like to follow-up with her oncologist in [place]. Accelerated hypertension Home antihypertensives continued Hydralazine was available as needed for BP spikes Hypokalemia Hypophosphatemia Hypomagnasemia Electrolytes monitored and replaced accordingly Severe protein calorie malnutrition Small frequent high-calorie diet recommended. Ensure Enlive (237ml) PO BID Overall patient is clinically improved and deemed stable for discharge. She is discharged with oral antibiotics, oral prednisone and nebulizer treatments. She is also prescribed home oxygen. Vital Signs/Physical Exam: Temp Pulse Resp BP Pulse Ox 98.1 F 72 16 120/71 93 08/24/23 08:34 08/24/23 10:36 08/24/23 08:34 08/24/23 10:36 08/24/23 08:34 General: Alert, In no apparent distress, Oriented x3 HEENT: Mucous membr. moist/pink Neck: Supple, JVD not distended Respiratory: Diminished Cardiovascular: No edema, Regular rate/rhythm, Normal S1 S2 Gastrointestinal: Soft and benign, Non-distended Musculoskeletal: No swelling Integumentary: No rashes Neurological: Normal strength at 5/5 x4 extr Laboratory Data at Discharge: WBC 14.00 thou/uL (4.3-10.9) H 08/24/23 01:55 Hgb 12.7 g/dL (12.0-15.0) 08/24/23 01:55 Hct 38.2 % (36.0-45.0) 08/24/23 01:55 Plt Count 232 thou/uL (152-406) 08/24/23 01:55 PT 13.0 SECONDS (9.5-12.5) H 08/19/23 21:53 INR 1.18 08/19/23 21:53 Sodium 142 mEq/L (136-145) 08/24/23 01:55 Potassium 4.0 mEq/L (3.5-5.1) 08/24/23 01:55 BUN 21 mg/dL (7-18) H 08/24/23 01:55 Creatinine 0.55 mg/dL (0.55-1.02) 08/24/23 01:55 Glucose 134 mg/dL (74-106) H 08/24/23 01:55 Phosphorus 2.1 mg/dL (2.5-4.9) L 08/24/23 01:55 Magnesium 1.8 mg/dL (1.6-2.4) 08/24/23 01:55 Total Bilirubin 0.5 mg/dL (0.2-1.0) 08/20/23 03:40 AST 13 U/L (15-37) L 08/20/23 03:40 ALT 17 U/L (13-56) 08/20/23 03:40 Alkaline Phosphatase 73 U/L (45-117) 08/20/23 03:40 Home Medications: Aspirin [Aspirin EC] 81 mg PO DAILY 08/20/23 Atorvastatin Calcium 20 mg PO DAILY 08/20/23 Calcium Carbonate/Vitamin D3 [Caltrate 600 Plus D3 Tablet] 1 tab PO DAILY 08/20/23 Carvedilol [Coreg] 12.5 mg PO BID 08/20/23 Cyclobenzaprine [Flexeril*] 20 mg PO BEDTIME 08/20/23 Hydralazine [Apresoline*] 25 mg PO TID 08/20/23 NIFEdipine [Nifedipine ER] 60 mg PO DAILY 08/20/23 Vit C/E/Zn/Coppr/Lutein/Zeaxan [Preservision Areds 2 Chew Tab] 1 tab PO DAILY 08/20/23 Ipratropium/Albuterol Sulfate [Iprat-Albut 0.5-3(2.5) mg/3 ml] 3 ml IH QID PRN #120 amp 08/24/23 Nebulizer 1 each MC QID #1 ea 08/24/23 levoFLOXacin [Levaquin*] 500 mg PO Q48H #3 tab 08/24/23 predniSONE [Prednisone*] 20 mg PO BID #10 tab 08/24/23 New Medications: Ipratropium/Albuterol Sulfate [Iprat-Albut 0.5-3(2.5) mg/3 ml] 3 ml IH QID PRN #120 amp PRN Reason: Shortness Of Breath levoFLOXacin [Levaquin*] 500 mg PO Q48H #3 tab Nebulizer 1 each MC QID #1 ea predniSONE [Prednisone*] 20 mg PO BID #10 tab Followup: NONE,NONE [Primary Care Provider] - Time spent managing pt's care (in minutes): 38
[2023-08-24 16:42] VITALS: O2SAT 92
== END 2023-08-24 13:45 | disposition home or self-care (01) | DRG 193 ==
LOC: ER 20:55 → ERHOLD 22:57 → 2ND 08-20 13:56
PROVIDERS: ADMIT Family Medicine; ATTEND Internal Medicine
PROC: 5A09357 Assistance with Respiratory Ventilation, Less than 24 Consecutive Hours, Continuous Positive Airway Pressure (ICD-10-PCS; principal; 2023-08-19)
DX: J18.9 Pneumonia, unspecified organism (principal); E43 Unspecified severe protein-calorie malnutrition; J96.01 Acute respiratory failure with hypoxia; J44.1 Chronic obstructive pulmonary disease with (acute) exacerbation; J44.0 Chronic obstructive pulmonary disease with (acute) lower respiratory infection; C78.7 Secondary malignant neoplasm of liver and intrahepatic bile duct; Z68.1 Body mass index [BMI] 19.9 or less, adult; C34.92 Malignant neoplasm of unspecified part of left bronchus or lung; C34.91 Malignant neoplasm of unspecified part of right bronchus or lung; E83.42 Hypomagnesemia; E83.39 Other disorders of phosphorus metabolism; E87.6 Hypokalemia; M81.0 Age-related osteoporosis without current pathological fracture; I10 Essential (primary) hypertension; Z90.2 Acquired absence of lung [part of]; Z88.0 Allergy status to penicillin; Z79.02 Long term (current) use of antithrombotics/antiplatelets; Z79.52 Long term (current) use of systemic steroids; Z86.73 Personal history of transient ischemic attack (TIA), and cerebral infarction without residual deficits; Z79.82 Long term (current) use of aspirin; Z79.899 Other long term (current) drug therapy; Z90.710 Acquired absence of both cervix and uterus; Z85.118 Personal history of other malignant neoplasm of bronchus and lung; Z85.528 Personal history of other malignant neoplasm of kidney
CPT/HCPCS: 36415; 71045; 71275; 80048; 80053; 80069; 80076; 83605; 83735; 83880; 84100; 84484; 85025; 85610; 87040; 93005; 93306; 94640; 94760; 94761; 96365; 96366; 96375; 99285; J0696; J1650; J2920; J3475; J7030; J7040; J7050; J7512; J7613; J7614; J7644; Q9967